=== PATIENT | male | born 1995 | race Caucasian/White ===

== ENCOUNTER 2020-10-11 03:22 | Emergency (ER) | payer OTHER, SELFPAY ==
[2020-10-11 03:28] VITALS: BP 160/98; PULSE 107; RESP 20; TEMP 36.3; O2SAT 95
[2020-10-11 04:03] LABS: Add Urine Microscopic? YES; Appearance Urine Cloudy (Clear); Bacteria Urine Trace /hpf; Bilirubin Urine Negative (Negative); Blood Urine 3+ (Negative); Color Urine Amber (Yellow); Glucose Urine UA Negative (Negative); Ketones Urine Negative (Negative); Leukocyte Esterase Ur Negative LEU/UL (Negative); Mucus Urine Moderate /lpf; Nitrate Urine Negative (Negative); Protein Urine 2+ mg/dL (Negative); RBC Urine >75 /hpf (0-2); Specific Grav Ur 1.025 (1.001-1.035); Squamous Epithelial Cell Urine Occasional /hpf (Few); Urobilinogen Urine Negative mg/dL (<2.0); WBC Urine 0-3 /hpf
--- NOTE | 2020-10-11 04:06 | ED.GENADULT ---
HPI - General Adult General Chief complaint: Urogenital-Male Stated complaint: peeing blood Time Seen by Provider: 10/11/20 03:30 History of Present Illness HPI narrative: Patient a 24-year-old gentleman who presents to emergency department with chief complaint of hematuria. The patient reports that he and his significant other were spending time together this evening and afterwards he went to urinate and noticed that he was urinating blood. Patient reports he has no pain other than now having some slight burning sensation whenever he urinates. Patient does report that he had intercourse earlier this evening denies any trauma denies any pain in his genitalia. Related Data Allergies Allergy/AdvReac Type Severity Reaction Status Date / Time No Known Allergies Allergy Unverified 07/19/17 21:28 Review of Systems Review of Systems: Narrative: A 10 system review of systems was completed on the patient and is negative except for what is stated in the HPI. Nursing and ancillary documentation was reviewed. Course Vital Signs Vital signs: Vital Signs Temperature 36.3 C L 10/11/20 03:28 Pulse Rate 107 H 10/11/20 03:28 Respiratory Rate 20 10/11/20 03:28 Blood Pressure 160/98 H 10/11/20 03:28 Pulse Oximetry 95 10/11/20 03:28 Temperature 36.3 C L 10/11/20 03:28 Pulse Rate 107 H 10/11/20 03:28 Respiratory Rate 20 10/11/20 03:28 Blood Pressure 160/98 H 10/11/20 03:28 Pulse Oximetry 95 10/11/20 03:28 Medical Decision Making Vital Signs Vital Signs: Vital Signs Temperature 36.3 C L 10/11/20 03:28 Pulse Rate 107 H 10/11/20 03:28 Respiratory Rate 20 10/11/20 03:28 Blood Pressure 160/98 H 10/11/20 03:28 Pulse Oximetry 95 10/11/20 03:28 Temperature 36.3 C L 10/11/20 03:28 Pulse Rate 107 H 10/11/20 03:28 Respiratory Rate 20 10/11/20 03:28 Blood Pressure 160/98 H 10/11/20 03:28 Pulse Oximetry 95 10/11/20 03:28 Lab Data Labs: Lab Results 10/11/20 Range/Units 03:40 Urine Color Jaimee (Yellow) Urine Appearance Cloudy H (Clear) Urine pH 5.0 (5.0-9.0) Ur Specific [place] 1.025 (1.001-1.035) Urine Protein 2+ H (Negative) mg/dL Urine Glucose (UA) Negative (Negative) mg/dL Urine Ketones Negative (Negative) mg/dL Ur Blood (Man) 3+ H (Negative) Urine Nitrate Negative (Negative) Urine Bilirubin Negative (Negative) Urine Urobilinogen Negative (<2.0) mg/dL Leukocyte Esterase Rfl Negative (Negative) KATHI/UL Urine RBC >75 H (0-2) /hpf Urine WBC 0-3 /hpf Ur Squamous Epith Cells Occasional (Few) /hpf Urine Bacteria Trace /hpf Urine Mucus Moderate H /lpf Discharge Plan Discharge Clinical Impression: Hematuria Qualifiers: Hematuria type: unspecified type Qualified Code(s): R31.9 - Hematuria, unspecified Patient Disposition: Home, Self-Care Condition: Stable Instructions: Antibiotic Form, Hematuria (ED) Additional Instructions: please follow up with your primary care provider you will need to have your urine tested for make sure the blood is resolving Follow-up/Referrals: VANESSA,ELOINA MADSEN [Primary Care Provider] - 1 Week Time of Disposition: 04:21
[2020-10-11 04:30] VITALS: BP 143/68; PULSE 94; RESP 16; O2SAT 97
== END 2020-10-11 04:32 | disposition home or self-care (01) ==
PROVIDERS: Emergency Provider Emergency Medicine; PCP Nurse Practitioner Family
DX: R31.9 Hematuria, unspecified (principal)
CPT/HCPCS: 73140; 81001; 99283

== ENCOUNTER 2022-06-01 16:10 | Inpatient (IN) | payer OTHER, SELFPAY ==
[2022-06-01] VITALS (18 sets, daily range): BP systolic 116–170; BP diastolic 79–103; PULSE 79–117; RESP 18–41; TEMP 36.6–36.8; O2SAT 96–99
--- NOTE | ~2022-06-01 | CT_ITS ---
EXAMINATION: CT abdomen w con DATE: 06/09/2022 18:54 INDICATION: severe pancreatitis TECHNIQUE: Computed tomography (CT) of the abdomen was performed with 100 mL Omnipaque 350 intravenou s contrast. Automated exposure control and iterative reconstruction technique were employed. The dose -length product was 666.92 mGy-cm. COMPARISON: 06/03/2022. FINDINGS: Bibasilar atelectasis. Small bilateral effusions, slightly increased since the prior study. Similar d egree of heterogeneity of enhancement in the pancreatic head. New focal linear hypoenhancement in the pancreatic tail. Increased peripancreatic fluid. The dominant peripancreatic collection is anterior to the pancreatic head, measures 7.3 cm and show signs of early organization. This collection narrows the traversing superior mesenteric vein which remains patent. Increased organization of multiple upp er abdominal fluid collections adjacent to the pancreatic tail/stomach, the posterior gastric fundus, the posterior medial gastric fundus extending to the anterior leaflet of the left lateral conal fasc ia, the uncinate process, and the pancreatic body/devaughn hepatis. No portal venous or splenic vein thr ombosis. IMPRESSION: Persistent heterogeneous enhancement in the pancreatic head and new linear hypoenhancement in the marx creatic tail, both concerning for necrotizing pancreatitis. Increasing size and organization of multi ple peripancreatic fluid collections, most consistent with acute necrotic collections. Reviewed, dictated and finalized at location K. UCTION LEAD IMPRESSION: Persistent heterogeneous enhancement in the pancreatic head and new linear hypo enhancement in the pancreatic tail, both concerning for necrotizing pancreatiti s. Increasing size and organization of multiple peripancreatic fluid collection s, most consistent with acute necrotic collections.
--- NOTE | ~2022-06-01 | CT_ITS ---
EXAMINATION: CT abdomen pelvis w con DATE: 06/01/2022 20:32 INDICATION: epigastric pain, N/V x2 days, dizziness, dx W/ pancreatitis TECHNIQUE: Computed tomography (CT) of the abdomen and pelvis was performed with 100 mL Omnipaque-350 intravenous contrast. Automated exposure control and iterative reconstruction technique were employe d. The dose-length product was 1377.41 mGy-cm. COMPARISON: None. FINDINGS: Lower thorax: Bibasilar dependent atelectasis. Small left and trace right pleural effusions. Left hil ar node calcifications. Left lower lobe granuloma. Liver: Enlarged diffusely fatty infiltrated liver. Biliary/Gallbladder: Gallbladder is normal. No bile duct dilation. Pancreas: Moderate peripancreatic fluid and edema. No organized peripancreatic collection. Patchy are as of hypoenhancement in the pancreatic head and uncinate process. Spleen: Normal. Adrenals:No mass. Kidneys: No mass, stone, or hydronephrosis. GI tract: Duodenal wall edema and mucosal hyperemia, likely reactive to the pancreatic process No sma ll or large bowel dilation. Normal appendix. Mesentery/Peritoneum: No mass or free air free air. Retroperitoneum: No mass. Pelvis: Pelvic organs are within normal limits. Soft Tissues: Mild body wall edema. Bones: No acute osseous finding. Partially visualized left femoral intramedullary hermann. IMPRESSION: Small left and trace right pleural effusions. Acute interstitial pancreatitis, with heterogeneous enh ancement in the pancreatic head and uncinate process, which may represent pancreatic edema or early n ecrosis. Reactive duodenitis. Hepatomegaly with steatosis. Reviewed, dictated and finalized at location K. DINING ROOM ATTENDANT IMPRESSION: Small left and trace right pleural effusions. Acute interstitial pancreatitis, with heterogeneous enhancement in the pancreatic head and uncinate process, whi ch may represent pancreatic edema or early necrosis. Reactive duodenitis. Hepat omegaly with steatosis.
--- NOTE | ~2022-06-01 | CT_ITS ---
CT Abdomen and Pelvis with contrast. History: Abdominal pain. Spiral CT of the abdomen and pelvis was performed after the administration of intravenous contrast. 1 00 cc of Omnipaque 350 was administered intravenously without complication. Dose reduction technique was used on this scan by utilizing automated exposure control and iterative reconstruction technique. The dose-length product (DLP) was 976.93 mGy-cm. COMPARISON: 06/01/2022 Findings: Scans through the lung bases demonstrate small left pleural effusion with mild atelectatic change. Diffuse fatty infiltration of the liver present. The spleen, gallbladder, adrenals and kidneys are wi thin normal limits. Extensive peripancreatic fluid and inflammatory changes similar to prior exam, co nsistent with acute pancreatitis. No pseudocyst evident. No gross pancreatic necrosis clearly identif ied. No evidence of aortic aneurysm. No lymphadenopathy is seen. There is no evidence of bowel obstruction. There is no evidence to suggest acute appendicitis or dive rticulitis. Images through the pelvis were performed. Urinary bladder unremarkable. Trace pelvic ascites is seen. Impression: Acute pancreatitis, essentially unchanged from prior exam. Diffuse fatty infiltration of the liver. Small left pleural effusion. Reviewed, dictated and finalized at location . TING DEPARTMENT SUPERVISOR Impression: Acute pancreatitis, essentially unchanged from prior exam. Diffuse fatty infiltration of the liver. Small left pleural effusion.
--- NOTE | ~2022-06-01 | XR_ITS ---
EXAMINATION: XR chest PICC line DATE: 06/06/2022 14:45 INDICATION: Central line placement. TECHNIQUE: A single frontal view of the chest was obtained. COMPARISON: Chest single view 12/03/2015, CT abdomen and pelvis 06/03/2022 FINDINGS: There is mild atelectasis at left lung base. No pleural effusion or pneumothorax without si ze is normal. A left upper extremity peripherally inserted central venous catheter (PICC) is seen wit h tip at the superior cavoatrial junction. Calcified left hilar lymph nodes are consistent with old g ranulomatous disease. IMPRESSION: 1. PICC tip at the superior cavoatrial junction. Reviewed, dictated and finalized at location A. RUCTIONAL COACH
[2022-06-01 19:31] LABS: Hematocrit 34.7 % (42.0-52.0); Hemoglobin 12.3 g/dL (14.0-18.0); Mean Corpuscular HGB Conc 35.4 g/dl (32-36); Mean Corpuscular Volume 95.9 fl (80-100); Mean Platelet Volume 11.4 fl (7.4-10.4); Platelet Count Result 187 k/mm3 (150-375); Red Blood Count 3.62 M/mm3 (4.6-6.20); Red Cell Distribution Width 15.1 % (11.5-14.5); White Blood Count 20.9 K/mm3 (4.5-10.0)
[2022-06-01 19:45] LABS: Add Urine Microscopic? YES; Appearance Urine Clear (Clear); Bilirubin Urine 2+ (Negative); Blood Urine Negative (Negative); Color Urine Yellow (Yellow); Glucose Urine UA Negative (Negative); Ketones Urine Negative (Negative); Leukocyte Esterase Ur Negative LEU/UL (Negative); Nitrate Urine Negative (Negative); Protein Urine Negative (Negative); Urobilinogen Urine 0.2 mg/dL (<2.0); pH Urine 7.5 (5.0-9.0)
[2022-06-01 19:49] LABS: Mucus Urine Rare /lpf; WBC Urine 0-3 /hpf
[2022-06-01 19:50] LABS: Alanine Aminotransferase 121 U/L (6-50); Albumin Level 3.5 g/dL (3.5-5.1); Alkaline Phosphatase 102 U/L (38-126); Anion Gap 6 mmol/L (8-16); Aspartate Amino Transferase 148 U/L (17-59); Bilirubin,Total 4.6 mg/dL (0.2-1.3); Calcium 8.1 mg/dL (8.4-10.2); Carbon Dioxide 30 mmol/L (22-30); Chloride 101 mmol/L (98-107); Estimated CRCL calculation 168 ml/min; Estimated Glomerular Filt Rate > 60; Glucose 112 mg/dL (65-110); Lipase 457 U/L (23-300); Potassium 2.3 mmol/L (3.4-5.0); Sodium 137 mmol/L (137-145)
[2022-06-01 19:51] LABS: Blood Urea Nitrogen < 2 mg/dL (9-20)
[2022-06-01 20:00] LABS: Band Neutrophils Percent 5 % (0-6); Lymphocytes Absolute Manual 2.09 K/mm3 (1.1-4.5); Lymphocytes Percent Manual 10 % (18-44); Metamyelocytes Percent 3 %; Monocytes Absolute Manual 2.09 K/mm3 (0.1-0.90); Monocytes Percent Manual 10 % (3-9); Neutrophils Absolute Manual 16.09 K/mm3 (1.3-6.7); Neutrophils Percent Manual 72 % (46-73); Smudge Cells FEW; Total Cells Counted 100
[2022-06-01 20:01] LABS: Nucleated Red Blood Cells 3 %; Platelet Estimate Adequate (Adequate)
[2022-06-01 20:02] LABS: Atypical Lymphocytes Present; Schistocytes None Seen (NORMAL)
--- NOTE | 2022-06-01 20:07 | ED.ABDPAIN ---
HPI - Abdominal Pain General Chief Complaint: Abdominal Pain Stated Complaint: acute pancreatitis, [facility] admission Time Seen by Provider: 06/01/22 18:58 History of Present Illness HPI narrative: Patient is a 26-year-old male who presents to the ER for evaluation in regards to pancreatitis. Used admitted to [facility] 2 days ago for acute pancreatitis. He is unsure any testing or lab work or treatment plan that was occurring. Reports that his pain is not being controlled and they would not bring him a glass water so he ended up leaving. Reports symptoms were preceded by heavy drinking. He has not had pancreatitis previously. Denies fevers chills or sweats. He has some nausea but no active vomiting. Related Data Allergies Allergy/AdvReac Type Severity Reaction Status Date / Time No Known Allergies Allergy Unverified 07/19/17 21:28 Review of Systems Constitutional: Constitutional: Reports no additional constitutional complaints Cardiovascular: Cardiovascular: Reports no additional cardiovascular complaints Respiratory: Respiratory: Reports no additional respiratory complaints Gastrointestinal: Gastrointestinal: Reports no additional gastrointestinal complaints Genitourinary: Genitourinary: Reports no additional male genitourinary complaints Integumentary/Breasts: Skin/Breast: Reports system reviewed and no additional complaints, except as docu [facility] Past Medical History Medical History (Updated 06/01/22 @ 21:36 by Napoleon Naranjo MD) Pancreatitis Surgical History Surgical History (Updated 06/01/22 @ 21:34 by Napoleon Naranjo MD) No pertinent past surgical history Social History Social History (Updated 06/01/22 @ 21:34 by Napoleon Naranjo MD) Social History: Drinks at least 12 shots of 100 proof alcohol per day. Exam Narrative: GENERAL: Well-appearing, obese, and in no acute distress. HEAD: Normocephalic, atraumatic. EYES: PERRL and EOMI. scleral icterus noted. ENT: Mucous membranes moist. CHEST: Clear to auscultation. No respiratory distress. HEART: Tachycardic regular. Normal peripheral pulses. ABDOMEN: Soft, present in the bilateral upper quadrants of the abdomen and slightly distended, normal active bowel sounds. EXTREMITIES: Normal range of motion. No edema. SKIN: Warm, dry, no rash. NEURO: Alert and oriented x3. PSYCH: Normal mood and affect. Course Course Emergency Course: Patient still uncomfortable and will get some Dilaudid. Patient informed of lab results and no abnormalities. He has been started on potassium chloride for his hypokalemia. He has been instructed to remain NPO. Will be admitted to the hospitalist service and I have discussed the case with Dr. Warren. Vital Signs Vital signs: Vital Signs Temperature 97.9 F 06/01/22 16:44 Pulse Rate 112 H 06/01/22 16:44 Respiratory Rate 20 06/01/22 16:44 Blood Pressure 160/100 H 06/01/22 16:44 Pulse Oximetry 99 06/01/22 16:44 Oxygen Delivery Room Air 06/01/22 16:44 Temperature 97.9 F 06/01/22 16:44 Pulse Rate 109 H 06/01/22 20:47 Respiratory Rate 32 H 06/01/22 20:47 Blood Pressure 144/95 H 06/01/22 19:35 Pulse Oximetry 97 06/01/22 20:47 Oxygen Delivery Room Air 06/01/22 16:44 MDM - Abdominal Pain MDM Narrative Medical decision making narrative: BISAP Score for Pancreatitis Mortality from [employer] ([employer]) on 06/01/2022 All calculations should be rechecked by clinician prior to use RESULT SUMMARY: 2 points Patients with a BISAP Score >0 had an increasing risk of mortality, with mortality increasing significantly with a score of 3 or greater. A score of 5 had a mortality rate of 22%. INPUTS: BUN >25 mg/dL (8.92 mmol/L) ?> 0 = No Impaired mental status ?> 0 = No >= SIRS Criteria ?> 1 = Yes Age >60 years ?> 0 = No Pleural effusion present ?> 1 = Yes Lab Data 06/01/22 19:22 06/01/22 19:22 Labs: Lab Results
[2022-06-01 20:24] LABS: Ethanol < 10 mg/dL (<10)
[2022-06-01] MEDS: POTASSIUM CHLORIDE INJ 40 MEQ in SODIUM CHLORIDE 0.9% IV 500 ML 130 MEQ IVPB (20:51)
--- NOTE | 2022-06-01 20:51 | PC.NURSE ---
Medical records request sent to [facility]
[2022-06-01 21:16] LABS: Amphetamine Screen Urine Negative (Negative); Barbiturate Screen Urine Negative (Negative); Benzodiazepines Screen Urine Negative (Negative); Cannabinoid Screen Urine Negative (Negative); Cocaine Screen Urine Negative (Negative); Methadone Screen Urine Negative (Negative); Opiate Screen Urine Negative (Negative); Phencyclidine Screen Urine Negative (Negative)
[2022-06-01 21:17] LABS: Lactate Dehydrogenase 517 U/L (120-246)
[2022-06-01] MEDS: ONDANSETRON INJ 4 MG/2 ML VIAL IV PUSH (21:33)
[2022-06-01] MEDS: HYDROmorphone HCL INJ (*CRX) 1 MG/ML SYR IV PUSH (21:34)
[2022-06-01 22:09] LABS: Influenza A QL RT-PCR Negative (Negative); Influenza B QL RT-PCR Negative (Negative); RSV RNA, RT-PCR Negative (Negative); SARS-CoV-2 RNA PCR Negative
--- NOTE | 2022-06-01 22:33 | ADMGEN ---
This patient, Alonso Bender, was admitted to Medical Room 252-01. Patient/family oriented to hospital policies and general routines including ID bracelet, bed and alarms, visiting hours, pain management, procedures, bathroom and other care routines, personal items, smoking policy, room service/diet, and visiting hours. Information on how to activate the Rapid Response Team has been discussed. Patient/Family are encouraged to report perceived risks to care and to ask questions if they do not understand what they are told or what they should do.
[2022-06-01] MEDS: SODIUM CHLORIDE 0.9% IV 1,000 ML 200 ML IV CONT (22:45)
--- NOTE | 2022-06-01 23:52 | PM.IMHP ---
H&P: HPI History of Present Illness Date/Time: 06/01/22 23:52: date of service 06/01/2021 Chief Complaint: Abdominal pain Narrative: Patient is a 26-year-old male past medical history of alcohol abuse presents to the ED with complaints of epigastric pain. Patient was recently seen at [facility] for acute alcoholic pancreatitis and he had left AMA due to being NPO. He has no active home meds and he states he has never had any issues in the past. He states he has never had pancreatitis before. No history of withdrawals from alcohol abuse. He does vape daily. In the ED: Patient is found have leukocytosis WBC 20.9, potassium 2.3, elevated ALT and AST, lipase 457. CT abdomen pelvis shows acute interstitial pancreatitis with possible early necrosis or pancreatic edema. Minford's criteria 2 points. Patient to be admitted for alcohol pancreatitis. Review of Systems Review of Systems: Constitutional: No Fever, No Chills, No Night Sweats, No Fatigue, No Malaise ENT/Mouth: No Hearing Changes, No Ear Pain, No Nasal Congestion, No Sinus Pain, No Hoarseness, No sore throat, No Rhinorrhea, No Swallowing Difficulty Eyes: No Eye Pain, No Redness, No Vision Changes Cardiovascular: No Chest Pain, No Palpitations, No Dyspnea on Exertion, No Orthopnea, No Claudication, No Edema Respiratory: No Cough, No Sputum, No Wheezing, No Shortness of Breath Gastrointestinal: Nausea, epigastric pain, distended abdomen Genitourinary: No Dysuria, No Urinary Frequency, No Hematuria, No Urinary Incontinence, No Urgency Musculoskeletal: No Arthralgias, No Myalgias, No Joint Swelling, No Joint Stiffness, No Back Pain Skin: No Skin Lesions, No Pruritis, No Hair Changes Neuro: No Weakness, No Numbness, No Paresthesias, No Loss of Consciousness, No Syncope, No Dizziness, No Headache Psych: No Anxiety/Panic, No Depression, No Insomnia Heme: No Bruising, No Bleeding Lymph: No Adenopathy Endocrine: No Polyuria, No Polydipsia, No Temperature Intolerance PMF Past Medical History Medical History Alcohol abuse Pancreatitis Surgical History Surgical History No pertinent past surgical history Family History Family History Mother Cerebrovascular accident Hypertension Social History Social History Social History: Drinks at least 12 shots of 100 proof alcohol per day. Smoking status: Current every day smoker Tobacco type: e-cigarettes/vaping Alcohol intake: current Drinks per week: 84 Substance use: former Substance use type: methamphetamine Lack of Transportation: No Lack of Food: Never True Current Housing: I Have Housing Concerned About Future Housing: No Difficulty Paying Gas/Electric Bills: No Difficulty Paying for Meds: No Currently Unemployed: No Education: Grade School Difficulty w/ Childcare or Family Care: No Spiritual care concerns: No Meds Home Medications and Allergies Home Medications Medication Instructions Recorded Confirmed Type No Home Medications 06/01/22 06/01/22 History Allergies Allergy/AdvReac Type Severity Reaction Status Date / Time No Known Allergies Allergy Unverified 07/19/17 21:28 Vital Signs Vital Signs - 24 hr 06/01/22 16:44 06/01/22 18:57 06/01/22 18:58 Temperature 36.6 C Pulse Rate 112 H 108 H 105 H Respiratory Rate 20 30 H 34 H Blood Pressure 160/100 H 170/103 H Pulse Oximetry 99 99 99 Oxygen Delivery Room Air 06/01/22 19:00 06/01/22 19:02 06/01/22 19:15 Temperature Pulse Rate 102 H 104 H 102 H Respiratory Rate 35 H 41 H 27 H Blood Pressure 131/87 Pulse Oximetry 99 98 99 Oxygen Delivery 06/01/22 19:26 06/01/22 19:33 06/01/22 19:35 Temperature Pulse Rate 117 H 109 H 109 H Respirat
[2022-06-02] VITALS (10 sets, daily range): BP systolic 142–153; BP diastolic 87–93; PULSE 94–105; RESP 18; TEMP 36.1–37.1; O2SAT 96–97
[2022-06-02] MEDS: POTASSIUM CHLORIDE INJ 40 MEQ in SODIUM CHLORIDE 0.9% IV 500 ML 130 MEQ IVPB ×3 (01:02→18:54)
[2022-06-02] MEDS: HYDROmorphone HCL INJ (*CRX) 1 MG/ML SYR IV PUSH ×7 (01:03→22:14)
[2022-06-02] MEDS: SODIUM CHLORIDE 0.9% IV 1,000 ML 200 ML IV CONT ×3 (04:02→17:58)
[2022-06-02] MEDS: NICOTINE (*PBKC) 14 MG PATCH 1 PATCH TRANSDERM (08:14)
[2022-06-02] MEDS: ENOXAPARIN 40 MG/0.4 ML SYRINGE SUB-Q (08:14)
--- NOTE | 2022-06-02 08:24 | PM.IMPN ---
Progress Note: A&P Assessment and Plan (1) Acute pancreatitis: Code(s): K85.90 - Acute pancreatitis without necrosis or infection, unspecified Status: Acute (2) Acute hypokalemia: Code(s): E87.6 - Hypokalemia Status: Acute (3) Alcohol abuse: Code(s): F10.10 - Alcohol abuse, uncomplicated Status: Acute (4) Hyperbilirubinemia: Code(s): E80.6 - Other disorders of bilirubin metabolism Status: Acute Plan # acute alcohol pancreatitis # mild transaminitis likely secondary to alcohol abuse -continue supportive care with IV fluids -Hadley criteria on admission 2 points -pain control p.r.n. Dilaudid 1 mg q.4 hours. Will increase dose to every 3 hours -IV fluids aggressive hydration continue normal saline 200 cc/hour -NPO for now for bowel rest. Will do trial of clear liquid -leukocytosis consistent with pancreatitis remains persistent # alcohol abuse -drinks 99% banana, high proof alcohol last 4-5 years -patient states he has no alcohol withdrawal history -will have [facility] protocol to monitor -multivitamin, thiamine, folic acid supplement -multi care technician consult for alcohol rehab services # hypokalemia -secondary to alcohol abuse -potassium 2.3 giving 40 mEq IV potassium chloride x2 Aggressive potassium replacement as ordered # nicotine dependence -patient vapes daily -will give nicotine patch Diet: NPO for bowel rest DVT prophylaxis: Lovenox Code status: Full code Disposition: Likely home in 3-5 days Subjective Date/time seen: 06/02/22 08:24 Interval history: Abdominal pain is better with pain medication but we are sub faster. Some nausea but no vomiting. Pain is and left upper abdomen. No fever chills. No alcohol since past 5 6 days Review of Systems Review of Systems: All systems reviewed & are unremarkable except as noted in HPI and below Exam Narrative: - GENERAL: Pleasant male no acute distress. - EYES: EOMI. Anicteric. - HENT: Moist mucous membranes. - LUNGS: Clear to auscultation bilaterally, no wheezing, rhonchi, or rales. - CARDIOVASCULAR: Regular rate and rhythm. No murmur. - ABDOMEN: Soft, tender epigastrium and left upper quadrant, distended abdomen. - EXTREMITIES: No edema. Peripheral pulses 2+. Non-tender. - NEUROLOGIC: No focal neurological deficits. CN II-XII grossly intact. - PSYCHIATRIC: Awake, Alert and oriented x 3. Appropriate mood and affect. - SKIN: No rashes or lesions. Warm. - LYMPH: No cervical lymphadenopathy. Objective Data Vital Signs Vital Signs: Vital Signs - 24 hr 06/01/22 16:44 06/01/22 18:57 06/01/22 18:58 Temperature 97.9 F Pulse Rate 112 H 108 H 105 H Respiratory Rate 20 30 H 34 H Blood Pressure 160/100 H 170/103 H Pulse Oximetry 99 99 99 Oxygen Delivery Room Air 06/01/22 19:00 06/01/22 19:02 06/01/22 19:15 Temperature Pulse Rate 102 H 104 H 102 H Respiratory Rate 35 H 41 H 27 H Blood Pressure 131/87 Pulse Oximetry 99 98 99 Oxygen Delivery 06/01/22 19:26 06/01/22 19:33 06/01/22 19:35 Temperature Pulse Rate 117 H 109 H 109 H Respiratory Rate 30 H 21 H Blood Pressure 141/92 H 144/95 H Pulse Oximetry 98 Oxygen Delivery 06/01/22 19:45 06/01/22 20:32 06/01/22 20:47 Temperature Pulse Rate 109 H 113 H 109 H Respiratory Rate 33 H 23 H 32 H Blood Pressure Pulse Oximetry 98 98 97 Oxygen Delivery 06/01/22 21:47 06/01/22 21:10 06/01/22 21:12 Temperature 98.2 F Pulse Rate 86 112 H 106 H Respiratory Rate 18 20 29 H Blood Pressure 126/79 150/95 H Pulse Oximetry 99 98 97 Oxygen Delivery 06/01/22 21:15 06/01/22 22:11 06/01/22 22:43 Temperature 98 F Pulse Rate 106 H 79 Respiratory Rate 40 H 18 Blood Pressure 116/79 Pulse Oximetry 96 98 Oxygen Delivery Room Air 06/01/22 23:22 06/02/22 00:00 06/02/22 00:48 Temperature 97.9 F 97 F L Pulse Rate 103 H 102 H 103 H Respiratory Rate 18 18 Blood Pressure 153/87 H 153/87 H Pulse Ox
[2022-06-02 09:08] LABS: Hematocrit 33.6 % (42.0-52.0); Hemoglobin 11.8 g/dL (14.0-18.0); Mean Corpuscular HGB Conc 35.1 g/dl (32-36); Mean Corpuscular Hemoglobin 33.9 pg (26-34); Mean Corpuscular Volume 96.6 fl (80-100); Mean Platelet Volume 11.1 fl (7.4-10.4); Platelet Count Result 207 k/mm3 (150-375); Red Blood Count 3.48 M/mm3 (4.6-6.20); Red Cell Distribution Width 15.9 % (11.5-14.5); White Blood Count 24.3 K/mm3 (4.5-10.0)
[2022-06-02 09:28] LABS: Alanine Aminotransferase 102 U/L (6-50); Albumin Level 3.3 g/dL (3.5-5.1); Alkaline Phosphatase 97 U/L (38-126); Anion Gap 5 mmol/L (8-16); Aspartate Amino Transferase 97 U/L (17-59); Blood Urea Nitrogen 3 mg/dL (9-20); Calcium 7.2 mg/dL (8.4-10.2); Carbon Dioxide 26 mmol/L (22-30); Chloride 104 mmol/L (98-107); Estimated CRCL calculation 194 ml/min; Estimated Glomerular Filt Rate > 60; Glucose 98 mg/dL (65-110); Magnesium 2.1 mg/dL (1.6-2.3); Potassium 2.7 mmol/L (3.4-5.0); Sodium 135 mmol/L (137-145)
[2022-06-02 10:07] LABS: Anisocytosis 1+ (NORMAL); Band Neutrophils Percent 5 % (0-6); Hypochromasia 1+ (NORMAL); Lymphocytes Absolute Manual 1.45 K/mm3 (1.1-4.5); Metamyelocytes Percent 4 %; Monocytes Absolute Manual 0.97 K/mm3 (0.1-0.90); Monocytes Percent Manual 4 % (3-9); Neutrophils Absolute Manual 20.89 K/mm3 (1.3-6.7); Neutrophils Percent Manual 81 % (46-73); Platelet Estimate Adequate (Adequate); Polychromasia 1+ (NORMAL); Schistocytes None Seen (NORMAL); Smudge Cells FEW; Target Cells 1+ (NORMAL); Total Cells Counted 100
[2022-06-02 18:11] LABS: Potassium 2.8 mmol/L (3.4-5.0)
--- NOTE | 2022-06-02 20:50 | PC.NURSE ---
pt educated on pain management and NPO status r/t pancreatitis. Pt is agreeable to maintain strict NPO at this time as clear liquids have been exacerbating pain.
[2022-06-03] VITALS (9 sets, daily range): BP systolic 140–145; BP diastolic 86–88; PULSE 90–115; RESP 18; TEMP 36.5–37.2; O2SAT 95–97
[2022-06-03] MEDS: POTASSIUM CHLORIDE INJ 40 MEQ in SODIUM CHLORIDE 0.9% IV 500 ML 130 MEQ IVPB ×2 (00:36→08:18)
[2022-06-03] MEDS: HYDROmorphone HCL INJ (*CRX) 1 MG/ML SYR IV PUSH ×10 (01:23→23:32)
[2022-06-03 06:01] LABS: Hemoglobin 11.9 g/dL (14.0-18.0); Mean Corpuscular Hemoglobin 34.3 pg (26-34); Mean Platelet Volume 10.8 fl (7.4-10.4); Platelet Count Result 226 k/mm3 (150-375); Red Blood Count 3.47 M/mm3 (4.6-6.20); Red Cell Distribution Width 16.2 % (11.5-14.5)
[2022-06-03 06:17] LABS: Alanine Aminotransferase 75 U/L (6-50); Albumin Level 3.2 g/dL (3.5-5.1); Alkaline Phosphatase 102 U/L (38-126); Anion Gap 7 mmol/L (8-16); Aspartate Amino Transferase 63 U/L (17-59); Blood Urea Nitrogen 5 mg/dL (9-20); Calcium 7.2 mg/dL (8.4-10.2); Carbon Dioxide 23 mmol/L (22-30); Chloride 101 mmol/L (98-107); Estimated CRCL calculation 228 ml/min; Estimated Glomerular Filt Rate > 60; Glucose 94 mg/dL (65-110); Lipase 481 U/L (23-300); Magnesium 2.1 mg/dL (1.6-2.3); Potassium 3.2 mmol/L (3.4-5.0); Sodium 131 mmol/L (137-145)
[2022-06-03] MEDS: SODIUM CHLORIDE 0.9% IV 1,000 ML 200 ML IV CONT ×3 (07:40→21:22)
[2022-06-03] MEDS: NICOTINE (*PBKC) 14 MG PATCH 1 PATCH TRANSDERM (08:03)
[2022-06-03] MEDS: ENOXAPARIN 40 MG/0.4 ML SYRINGE SUB-Q (08:04)
[2022-06-03 08:13] LABS: Band Neutrophils Percent 14 % (0-6); Eosinophils Absolute Manual 0.27 K/mm3 (0.02-0.5); Eosinophils Percent Manual 1 % (0-4); Lymphocytes Absolute Manual 1.35 K/mm3 (1.1-4.5); Metamyelocytes Percent 1 %; Monocytes Absolute Manual 1.35 K/mm3 (0.1-0.90); Monocytes Percent Manual 5 % (3-9); Myelocytes Percent 1 %; Neutrophils Absolute Manual 23.49 K/mm3 (1.3-6.7); Neutrophils Percent Manual 73 % (46-73); Platelet Estimate Adequate (Adequate); Schistocytes None Seen (NORMAL); Stomatocytes 1+ (NORMAL); Total Cells Counted 100
[2022-06-03] MEDS: PANTOPRAZOLE SODIUM IV 40 MG VIAL IV PUSH (09:12)
--- NOTE | 2022-06-03 13:54 | PM.IMPN ---
Progress Note: A&P Assessment and Plan (1) Acute pancreatitis: Code(s): K85.90 - Acute pancreatitis without necrosis or infection, unspecified Status: Acute (2) Acute hypokalemia: Code(s): E87.6 - Hypokalemia Status: Acute (3) Alcohol abuse: Code(s): F10.10 - Alcohol abuse, uncomplicated Status: Acute (4) Hyperbilirubinemia: Code(s): E80.6 - Other disorders of bilirubin metabolism Status: Acute Plan # acute alcohol pancreatitis continue IV resuscitation has ordered. Will continue NPO. Leukocytosis worsened. Will start imipenem cilastatin. Recheck CT abdomen to rule out necrosis. GI consultation. # mild transaminitis likely secondary to alcohol abuse -continue supportive care with IV fluids -Tyler criteria on admission 2 points -pain control p.r.n. Dilaudid 1 mg q 12 hours p.r.n. -IV fluids aggressive hydration continue normal saline 200 cc/hour -NPO for now for bowel rest. Will do trial of clear liquid which did not go well. Continue NPO for now -leukocytosis consistent with pancreatitis remains persistent # alcohol abuse -drinks 99% banana, high proof alcohol last 4-5 years -patient states he has no alcohol withdrawal history -will have [facility] protocol to monitor -multivitamin, thiamine, folic acid supplement -palliative care nurse practitioner consult for alcohol rehab services # hypokalemia -secondary to alcohol abuse -potassium 2.3 giving 40 mEq IV potassium chloride x2 Aggressive potassium replacement as ordered # nicotine dependence -patient vapes daily -will give nicotine patch Diet: NPO for bowel rest DVT prophylaxis: Lovenox Code status: Full code Disposition: Likely home in 3-5 days Subjective Date/time seen: 06/03/22 13:54 Interval history: He tried some popsicles yesterday and had felt worse since then. His feels bloated and hurting more. Nausea present no vomiting. Remains afebrile. Review of Systems Review of Systems: All systems reviewed & are unremarkable except as noted in HPI and below Exam Narrative: - GENERAL: Pleasant male ill looking not in acute distress - EYES: EOMI. Anicteric. - HENT: Moist mucous membranes. - LUNGS: Clear to auscultation bilaterally, no wheezing, rhonchi, or rales. - CARDIOVASCULAR: Regular rate and rhythm. No murmur. - ABDOMEN: Soft, tender epigastrium and left upper quadrant, distended abdomen. - EXTREMITIES: No edema. Peripheral pulses 2+. Non-tender. - NEUROLOGIC: No focal neurological deficits. CN II-XII grossly intact. - PSYCHIATRIC: Awake, Alert and oriented x 3. Appropriate mood and affect. - SKIN: No rashes or lesions. Warm. - LYMPH: No cervical lymphadenopathy. Objective Data Vital Signs Vital Signs: Vital Signs - 24 hr 06/02/22 14:00 06/02/22 16:00 06/02/22 21:23 Temperature 98.3 F 98.7 F Pulse Rate 98 94 102 H Respiratory Rate 18 18 Blood Pressure 151/91 H 144/93 H Pulse Oximetry 96 97 06/02/22 20:00 06/03/22 05:27 06/03/22 00:00 Temperature 99.0 F Pulse Rate 98 96 115 H Respiratory Rate 18 Blood Pressure 143/86 H Pulse Oximetry 96 06/03/22 04:00 Temperature Pulse Rate 94 Respiratory Rate Blood Pressure Pulse Oximetry Intake/Output Intake/Output: Intake & Output 05/31/22 06/01/22 06/02/22 06/03/22 23:59 23:59 23:59 23:59 Intake Total 4900 1520 Output Total 4800 1400 Balance 100 120 Meds/Results Medications: Active Medications Generic Name Dose Route Start Last Admin Trade Name Freq PRN Reason Stop Dose Admin Enoxaparin Sodium 40 mg 06/02/22 09:00 06/03/22 08:04 Enoxaparin 40 Mg/0.4 Ml Syringe SUB-Q 40 mg DAILY [facility] Administration Folic Acid 1 mg 06/04/22 09:00 Folic Acid 1 Mg/0.2 Ml Inj IV PUSH QAM [facility] Hydromorphone HCl 1 mg 06/03/22 10:14 06/03/22 13:24 Hydromorphone Hcl Inj (*Crx) 1 Mg/Ml Syr IV PUSH 1 mg Q2H PRN Administration Pain Rated 7-10 Sodium Chloride 1,000 mls @ 200 mls/hr 06/01
[2022-06-03] MEDS: ONDANSETRON INJ 4 MG/2 ML VIAL IV PUSH ×2 (13:59→21:31)
--- NOTE | 2022-06-03 16:05 | WPDGICN ---
Assessment and Plan Assessment and plan (1) Acute pancreatitis: Code(s): K85.90 - Acute pancreatitis without necrosis or infection, unspecified Status: Acute Assessment and Plan: As noted above, lipase is over 400. CT scan shows: Diffuse fatty infiltration of the liver present. The spleen, gallbladder, adrenals and kidneys are within normal limits. Extensive peripancreatic fluid and inflammatory changes similar to prior exam, consistent with acute pancreatitis. No pseudocyst evident. No gross pancreatic necrosis clearly identified. No evidence of aortic aneurysm.? No lymphadenopathy is seen. (2) Acute hypokalemia: Code(s): E87.6 - Hypokalemia Status: Acute Assessment and Plan: He required several potassium riders. (3) Alcohol abuse: Code(s): F10.10 - Alcohol abuse, uncomplicated Status: Acute Assessment and Plan: He states he drinks at least 10 or 12 shots of 100 proof alcohol every day He insists that he is going to stop drinking completely. I did explain him that once a person has had pancreatitis. It does not take that much alcohol for to come back and that in some individuals each episode is worse any can be fatal. (4) Hyperbilirubinemia: Code(s): E80.6 - Other disorders of bilirubin metabolism Status: Acute Assessment and Plan: Bilirubin was over 4 but now down to 2.0. He denies any prior episodes of jaundice. His hearing, which was very dark to 3 days ago has come back to almost normal color. I observed urine in his urine now and was slightly orangish yellow Plan I explained the patient that getting over pancreatitis requires resting the pancreas, a can to resting a sprained ankle. I told that as his pain diminishes that will be an indication that his pancreas has healed enough that he is able to have that just double food. For now he will need to stay on clear liquids. Explain him that pancreatitis can take days to many weeks to recover from. In some cases hyperalimentation is necessary. I explained that he could get pancreatic necrosis. He is on antibiotics now. The retic Preethi we would not need to start these until 7-10 days at which point the risk of infected necrosis would appear but he is on imipenem which is the appropriate antibiotic. We need to monitor calcium level magnesium, and phosphorus . Rehydration is a central as it 1 can have a great deal of 3rd spacing of fluid of acute pancreatitis. Will watch for signs of hemoconcentration to guide us in that. GI Consult Note Consult date/time: 06/03/22 16:05 HPI: Alonso Bender is a 26 year old male who was admitted through the emergency room 2 days ago with acute abdominal pain due to pancreatitis. He states that his symptoms began on Thursday. He went to the emergency room at [facility] but left the next day because he was waiting up to 6 hours for pain medication and not getting any responses or explanation as to what his treatment program was. He admits he drinks quite a bit of alcohol, but anti shots which are 99 prove. He has never before had hepatitis or yellow jaundice but recalls being told that he had some damage to his liver when he took an overdose of something or other at age 15. He does not have a primary care physician has not had any recent laboratory studies for comparison he states that he try to drink liquids when he was at the other hospital because they were encouraging to do so but it made him more nauseated. He is now tolerating a popsicle. He has had no emesis today. His abdomen was feeling very tense at 1st but is little better now it he also noted his urine was is dark as tea a couple days ago but seems to be clear today. He has had no change in bowel habits. Arrival here he was found have a bilirubin of 4.6. Lipase was in the 400s transaminases are elevated but are improving. White blood count is over 20,000. CT scan is consistent with acute pancreatitis
[2022-06-03 16:15] LABS: Phosphorus 1.8 mg/dL (2.5-4.5)
--- NOTE | 2022-06-03 20:02 | PC.NURSE ---
Pt requesting IV dilaudid roughly every 90min, holding 2nd trial of clear liquids at this time.
--- NOTE | 2022-06-03 20:28 | PC.NURSE ---
Pt care assumed by Peggy Wagner RN.
[2022-06-04] VITALS (9 sets, daily range): BP systolic 138–153; BP diastolic 87–90; PULSE 90–107; RESP 17–18; TEMP 36.6–37.7; O2SAT 95–98
[2022-06-04] MEDS: ONDANSETRON INJ 4 MG/2 ML VIAL IV PUSH ×3 (01:35→21:58)
[2022-06-04] MEDS: HYDROmorphone HCL INJ (*CRX) 1 MG/ML SYR IV PUSH ×8 (01:35→22:00)
[2022-06-04] MEDS: SODIUM CHLORIDE 0.9% IV 1,000 ML 200 ML IV CONT ×4 (02:44→19:06)
[2022-06-04 07:48] LABS: Alanine Aminotransferase 57 U/L (6-50); Albumin Level 3.2 g/dL (3.5-5.1); Alkaline Phosphatase 109 U/L (38-126); Anion Gap 8 mmol/L (8-16); Aspartate Amino Transferase 51 U/L (17-59); Bilirubin,Total 1.7 mg/dL (0.2-1.3); Blood Urea Nitrogen 4 mg/dL (9-20); Calcium 7.5 mg/dL (8.4-10.2); Carbon Dioxide 24 mmol/L (22-30); Chloride 99 mmol/L (98-107); Estimated CRCL calculation 228 ml/min; Estimated Glomerular Filt Rate > 60; Glucose 93 mg/dL (65-110); Potassium 3.2 mmol/L (3.4-5.0); Sodium 131 mmol/L (137-145)
[2022-06-04] MEDS: NICOTINE (*PBKC) 14 MG PATCH 1 PATCH TRANSDERM (08:22)
[2022-06-04] MEDS: THIAMINE HCL 200 MG/2 ML VIAL 100 MG IV PUSH (08:23)
[2022-06-04] MEDS: FOLIC ACID 1 MG/0.2 ML INJ IV PUSH (08:23)
[2022-06-04] MEDS: PANTOPRAZOLE SODIUM IV 40 MG VIAL IV PUSH (08:23)
[2022-06-04] MEDS: ENOXAPARIN 40 MG/0.4 ML SYRINGE SUB-Q (08:23)
[2022-06-04 08:39] LABS: Lipase 630 U/L (23-300)
[2022-06-04 08:42] LABS: Procalcitonin 0.6 ng/mL
[2022-06-04] MEDS: POTASSIUM CHLORIDE 20 MEQ PACKET (FOR LIQUID) 40 MEQ PO (13:53)
--- NOTE | 2022-06-04 14:53 | PM.IMPN ---
Progress Note: A&P Assessment and Plan (1) Acute pancreatitis: Code(s): K85.90 - Acute pancreatitis without necrosis or infection, unspecified Status: Acute (2) Acute hypokalemia: Code(s): E87.6 - Hypokalemia Status: Acute (3) Alcohol abuse: Code(s): F10.10 - Alcohol abuse, uncomplicated Status: Acute (4) Hyperbilirubinemia: Code(s): E80.6 - Other disorders of bilirubin metabolism Status: Acute Plan # acute alcohol pancreatitis continue IV resuscitation has ordered. Will continue NPO. Leukocytosis worsened. Will start imipenem cilastatin. Recheck CT abdomen to rule out necrosis. GI consultation. # mild transaminitis likely secondary to alcohol abuse -continue supportive care with IV fluids -Tyler criteria on admission 2 points -pain control p.r.n. Dilaudid 1 mg q 12 hours p.r.n. -IV fluids aggressive hydration continue normal saline 200 cc/hour -NPO for now for bowel rest. Will do trial of clear liquid which did not go well. Continue NPO for now -leukocytosis consistent with pancreatitis remains persistent # alcohol abuse -drinks 99% banana, high proof alcohol last 4-5 years -patient states he has no alcohol withdrawal history -will have [facility] protocol to monitor -multivitamin, thiamine, folic acid supplement -healthcare administration intern consult for alcohol rehab services # hypokalemia -secondary to alcohol abuse -potassium 2.3 giving 40 mEq IV potassium chloride x2 Aggressive potassium replacement as ordered # nicotine dependence -patient vapes daily -will give nicotine patch Diet: NPO for bowel rest DVT prophylaxis: Lovenox Code status: Full code Disposition: Likely home in 3-5 days 06/04/2022 interval history: patient with history of alcohol abuse presented with pancreatitis patient lipase a is 680 patient continued to complain of abdominal pain patient seen by GI recommended continue clear liquid, hydration and pain management, patient has a risk of DT, will place the patient on CIWA per and Librium as needed will continue to monitor and further recommendation to follow Subjective Date/time seen: 06/04/22 14:53 Interval history: He tried some popsicles yesterday and had felt worse since then. His feels bloated and hurting more. Nausea present no vomiting. Remains afebrile. 06/04/2022 interval history: patient with history of alcohol abuse presented with pancreatitis patient lipase a is 680 patient continued to complain of abdominal pain patient seen by GI recommended continue clear liquid, hydration and pain management, patient has a risk of DT, will place the patient on CIWA per and Librium as needed will continue to monitor and further recommendation to follow Review of Systems Review of Systems: All systems reviewed & are unremarkable except as noted in HPI and below Exam Narrative: moderately obese Patient is comfortable, NAD HEENT: eyes are clear and none icteric LUNGS: normal respiratory effort ABD: obese distended Lower extremities: no edema SKIN: nonjaundiced Neuro: grossly intact. Objective Data Vital Signs Vital Signs: Vital Signs - 24 hr 06/03/22 16:00 06/03/22 21:10 06/03/22 20:00 Temperature 97.9 F Pulse Rate 98 102 H 97 Respiratory Rate 18 Blood Pressure 145/88 H Pulse Oximetry 97 Oxygen Delivery 06/04/22 00:00 06/04/22 04:58 06/04/22 04:00 Temperature 97.8 F Pulse Rate 100 97 90 Respiratory Rate 17 Blood Pressure 146/87 H Pulse Oximetry 96 Oxygen Delivery 06/04/22 04:00 06/04/22 08:23 06/04/22 08:00 Temperature Pulse Rate 97 90 Respiratory Rate 18 Blood Pressure 146/87 H Pulse Oximetry 96 Oxygen Delivery Room Air 06/04/22 12:04 Temperature Pulse Rate 107 H Respiratory Rate Blood Pressure Pulse Oximetry Oxygen Delivery Intake/Output Intake/Output: Intake & Output 06/01/22 06/02/22 06/03/22 06/04/22 23:59 23:59 23:59 23:59 Intake Total
--- NOTE | 2022-06-04 16:26 | WPDGIPROGNO ---
Progress Note: A&P Assessment and Plan (1) Acute pancreatitis: Code(s): K85.90 - Acute pancreatitis without necrosis or infection, unspecified Status: Acute Assessment and Plan: As noted above, lipase is over 400. CT scan shows: Diffuse fatty infiltration of the liver present. The spleen, gallbladder, adrenals and kidneys are within normal limits. Extensive peripancreatic fluid and inflammatory changes similar to prior exam, consistent with acute pancreatitis. No pseudocyst evident. No gross pancreatic necrosis clearly identified. No evidence of aortic aneurysm.? No lymphadenopathy is seen. So far no significant improvement. He in fact feels a little more uncomfortable. I told that he may need parental element today herrera if his pancreatitis does not resolve in a few days. It is too soon however at this point to know that that would be necessary. (2) Acute hypokalemia: Code(s): E87.6 - Hypokalemia Status: Acute Assessment and Plan: He required several potassium riders. (3) Alcohol abuse: Code(s): F10.10 - Alcohol abuse, uncomplicated Status: Acute Assessment and Plan: He states he drinks at least 10 or 12 shots of 100 proof alcohol every day He insists that he is going to stop drinking completely. I did explain him that once a person has had pancreatitis. It does not take that much alcohol for to come back and that in some individuals each episode is worse any can be fatal. (4) Hyperbilirubinemia: Code(s): E80.6 - Other disorders of bilirubin metabolism Status: Acute Assessment and Plan: Bilirubin was over 4 but now down to 2.0. He denies any prior episodes of jaundice. His hearing, which was very dark to 3 days ago has come back to almost normal color. I observed urine in his urine now and was slightly orangish yellow 06/04/2022 bilirubin is a little lower, 1.7 Plan I explained the patient that getting over pancreatitis requires resting the pancreas, a can to resting a sprained ankle. I told that as his pain diminishes that will be an indication that his pancreas has healed enough that he is able to have that just double food. For now he will need to stay on clear liquids. Explain him that pancreatitis can take days to many weeks to recover from. In some cases hyperalimentation is necessary. I explained that he could get pancreatic necrosis. He is on antibiotics now. The retic Preethi we would not need to start these until 7-10 days at which point the risk of infected necrosis would appear but he is on imipenem which is the appropriate antibiotic. We need to monitor calcium level magnesium, and phosphorus . Rehydration is essential as it 1 can have a great deal of 3rd spacing of fluid of acute pancreatitis. Will watch for signs of hemoconcentration to guide us in that. I reminded him that bowel rest is the main treatment approach for pancreatitis as there is no medical therapy to accelerate the healing process. He understands that in the fact he stated that he is not even comfortable drinking liquids today Subjective Date/time seen: 06/04/22 16:26 His pain is if anything worse today. He still needs his pain medicine every 2 hours but states that it does not last that long. He has tried some clear liquids but he states that he drinks more than a couple of sips it causes him more pain and he is therefore avoiding anything by mouth. I asked him more about his brief hospitalization at [facility]. He thinks that they told him his lipase was 5500. 06/03/22? HPI: Alonso Bender is a 26 year old male who was admitted through the emergency room 2 days ago with acute abdominal pain due to pancreatitis.? He states that his symptoms began on Thursday.? He went to the emergency room at [facility] but left the next day because he was waiting up to 6 hours for pain medication and not getting any responses or explanation as to what his treatme
[2022-06-04] MEDS: chlordiazePOXIDE (*CRX) 25 MG CAPSULE 50 MG PO (16:37)
[2022-06-04] MEDS: HYDROcodone/acetaminophen (*CRX) 5-325 MG TABLET 1 TAB PO ×2 (16:38→20:39)
[2022-06-05] VITALS (11 sets, daily range): BP systolic 137–150; BP diastolic 75–85; PULSE 89–107; RESP 18; TEMP 36.2–36.7; O2SAT 97–99
[2022-06-05] MEDS: SODIUM CHLORIDE 0.9% IV 1,000 ML 200 ML IV CONT ×6 (00:21→23:06)
[2022-06-05] MEDS: chlordiazePOXIDE (*CRX) 25 MG CAPSULE 50 MG PO ×4 (00:22→17:36)
[2022-06-05] MEDS: HYDROcodone/acetaminophen (*CRX) 5-325 MG TABLET 1 TAB PO ×5 (02:50→21:04)
[2022-06-05 05:28] LABS: Hematocrit 34.3 % (42.0-52.0); Mean Corpuscular Volume 97.2 fl (80-100); Mean Platelet Volume 10.4 fl (7.4-10.4); Platelet Count Result 329 k/mm3 (150-375); Red Blood Count 3.53 M/mm3 (4.6-6.20); Red Cell Distribution Width 16.1 % (11.5-14.5); White Blood Count 25.1 K/mm3 (4.5-10.0)
[2022-06-05 05:42] LABS: Alanine Aminotransferase 53 U/L (6-50); Alkaline Phosphatase 106 U/L (38-126); Anion Gap 7 mmol/L (8-16); Aspartate Amino Transferase 57 U/L (17-59); Bilirubin,Total 1.4 mg/dL (0.2-1.3); Blood Urea Nitrogen 3 mg/dL (9-20); Calcium 7.7 mg/dL (8.4-10.2); Carbon Dioxide 26 mmol/L (22-30); Chloride 103 mmol/L (98-107); Estimated CRCL calculation 228 ml/min; Estimated Glomerular Filt Rate > 60; Glucose 98 mg/dL (65-110); Magnesium 2.2 mg/dL (1.6-2.3); Potassium 3.4 mmol/L (3.4-5.0); Sodium 136 mmol/L (137-145)
[2022-06-05] MEDS: HYDROmorphone HCL INJ (*CRX) 1 MG/ML SYR IV PUSH ×3 (06:31→22:14)
[2022-06-05] MEDS: ENOXAPARIN 40 MG/0.4 ML SYRINGE SUB-Q (08:08)
[2022-06-05] MEDS: NICOTINE (*PBKC) 14 MG PATCH 1 PATCH TRANSDERM (08:09)
[2022-06-05] MEDS: PANTOPRAZOLE SODIUM IV 40 MG VIAL IV PUSH (08:09)
[2022-06-05] MEDS: THIAMINE HCL 200 MG/2 ML VIAL 100 MG IV PUSH (08:09)
[2022-06-05] MEDS: FOLIC ACID 1 MG/0.2 ML INJ IV PUSH (08:12)
[2022-06-05] MEDS: POTASSIUM CHLORIDE 20 MEQ TABLET 40 MEQ PO (12:03)
--- NOTE | 2022-06-05 13:18 | PM.IMPN ---
Progress Note: A&P Assessment and Plan (1) Acute pancreatitis: Code(s): K85.90 - Acute pancreatitis without necrosis or infection, unspecified Status: Acute (2) Acute hypokalemia: Code(s): E87.6 - Hypokalemia Status: Acute (3) Alcohol abuse: Code(s): F10.10 - Alcohol abuse, uncomplicated Status: Acute (4) Hyperbilirubinemia: Code(s): E80.6 - Other disorders of bilirubin metabolism Status: Acute Plan # acute alcohol pancreatitis continue IV resuscitation has ordered. Will continue NPO. Leukocytosis worsened. Will start imipenem cilastatin. Recheck CT abdomen to rule out necrosis. GI consultation. # mild transaminitis likely secondary to alcohol abuse -continue supportive care with IV fluids -Tyler criteria on admission 2 points -pain control p.r.n. Dilaudid 1 mg q 12 hours p.r.n. -IV fluids aggressive hydration continue normal saline 200 cc/hour -NPO for now for bowel rest. Will do trial of clear liquid which did not go well. Continue NPO for now -leukocytosis consistent with pancreatitis remains persistent # alcohol abuse -drinks 99% banana, high proof alcohol last 4-5 years -patient states he has no alcohol withdrawal history -will have [facility] protocol to monitor -multivitamin, thiamine, folic acid supplement -rn care transition consult for alcohol rehab services # hypokalemia -secondary to alcohol abuse -potassium 2.3 giving 40 mEq IV potassium chloride x2 Aggressive potassium replacement as ordered # nicotine dependence -patient vapes daily -will give nicotine patch Diet: NPO for bowel rest DVT prophylaxis: Lovenox Code status: Full code Disposition: Likely home in 3-5 days 06/05/2022 interval history: patient with history of alcohol abuse presented with pancreatitis, patient lipase was 680 on 06/04, patient continued to complain of abdominal pain patient seen by GI recommended continue clear liquid, hydration and pain management, patient has a risk of DT, placed the patient on CIWA protocol and Librium as needed, today again patient continue to c/o abdomen pain, will not advance his diet, patient will be seen GI and further recommendation to follow, will continue to monitor and further recommendation to follow Subjective Date/time seen: 06/05/22 13:18 Interval history: He tried some popsicles yesterday and had felt worse since then. His feels bloated and hurting more. Nausea present no vomiting. Remains afebrile. 06/05/2022 interval history: patient with history of alcohol abuse presented with pancreatitis, patient lipase was 680 on 06/04, patient continued to complain of abdominal pain patient seen by GI recommended continue clear liquid, hydration and pain management, patient has a risk of DT, placed the patient on CIWA protocol and Librium as needed, today again patient continue to c/o abdomen pain, will not advance his diet, patient will be seen GI and further recommendation to follow, will continue to monitor and further recommendation to follow Review of Systems Review of Systems: All systems reviewed & are unremarkable except as noted in HPI and below Exam Narrative: moderately obese Patient is comfortable, NAD HEENT: eyes are clear and none icteric LUNGS: normal respiratory effort ABD: obese distended Lower extremities: no edema SKIN: nonjaundiced Neuro: grossly intact. Objective Data Vital Signs Vital Signs: Vital Signs - 24 hr 06/04/22 14:00 06/04/22 16:01 06/04/22 22:00 Temperature 98.1 F 99.8 F H Pulse Rate 93 105 H 103 H Respiratory Rate 18 18 Blood Pressure 138/90 153/89 H Pulse Oximetry 95 98 Oxygen Delivery 06/05/22 00:00 06/05/22 04:00 06/05/22 05:45 Temperature 98.0 F Pulse Rate 97 98 94 Respiratory Rate 18 Blood Pressure 150/85 H Pulse Oximetry 99 Oxygen Delivery 06/05/22 08:14 06/05/22 08:00 06/05/22 12:04 Temperature Pulse Rate 89 99 Respiratory Rate 18
[2022-06-05] MEDS: ONDANSETRON INJ 4 MG/2 ML VIAL IV PUSH ×2 (14:08→22:16)
[2022-06-06] VITALS (10 sets, daily range): BP systolic 127–149; BP diastolic 62–86; PULSE 86–111; RESP 18–20; TEMP 35.6–36.7; O2SAT 94–97; BMI 33.0
[2022-06-06] MEDS: chlordiazePOXIDE (*CRX) 25 MG CAPSULE 50 MG PO ×2 (00:54→06:56)
[2022-06-06] MEDS: HYDROcodone/acetaminophen (*CRX) 5-325 MG TABLET 1 TAB PO ×3 (01:05→10:36)
[2022-06-06] MEDS: SODIUM CHLORIDE 0.9% IV 1,000 ML 200 ML IV CONT ×2 (05:07→10:55)
[2022-06-06 05:50] LABS: Hematocrit 35.4 % (42.0-52.0); Hemoglobin 12.1 g/dL (14.0-18.0); Mean Corpuscular HGB Conc 34.2 g/dl (32-36); Mean Corpuscular Hemoglobin 33.3 pg (26-34); Mean Corpuscular Volume 97.5 fl (80-100); Mean Platelet Volume 10.3 fl (7.4-10.4); Platelet Count Result 433 k/mm3 (150-375); Red Blood Count 3.63 M/mm3 (4.6-6.20); Red Cell Distribution Width 15.9 % (11.5-14.5); White Blood Count 22.1 K/mm3 (4.5-10.0)
[2022-06-06] MEDS: HYDROmorphone HCL INJ (*CRX) 1 MG/ML SYR IV PUSH ×5 (06:02→21:47)
[2022-06-06] MEDS: ONDANSETRON INJ 4 MG/2 ML VIAL IV PUSH ×3 (06:03→20:51)
[2022-06-06 06:16] LABS: Alanine Aminotransferase 61 U/L (6-50); Albumin Level 2.9 g/dL (3.5-5.1); Alkaline Phosphatase 119 U/L (38-126); Anion Gap 5 mmol/L (8-16); Aspartate Amino Transferase 77 U/L (17-59); Bilirubin,Total 1.2 mg/dL (0.2-1.3); Calcium 7.7 mg/dL (8.4-10.2); Carbon Dioxide 28 mmol/L (22-30); Chloride 104 mmol/L (98-107); Estimated CRCL calculation 228 ml/min; Estimated Glomerular Filt Rate > 60; Glucose 99 mg/dL (65-110); Lipase 1173 U/L (23-300); Potassium 3.2 mmol/L (3.4-5.0); Sodium 137 mmol/L (137-145)
[2022-06-06 06:37] LABS: Blood Urea Nitrogen < 2 mg/dL (9-20)
--- NOTE | 2022-06-06 07:02 | WPDGIPROGNO ---
Progress Note: A&P Assessment and Plan (1) Acute pancreatitis: Code(s): K85.90 - Acute pancreatitis without necrosis or infection, unspecified Status: Acute Assessment and Plan: As noted above, lipase is over 400. CT scan shows: Diffuse fatty infiltration of the liver present. The spleen, gallbladder, adrenals and kidneys are within normal limits. Extensive peripancreatic fluid and inflammatory changes similar to prior exam, consistent with acute pancreatitis. No pseudocyst evident. No gross pancreatic necrosis clearly identified. No evidence of aortic aneurysm.? No lymphadenopathy is seen. So far no significant improvement. He in fact feels a little more uncomfortable. I told that he may need parental element today herrera if his pancreatitis does not resolve in a few days. It is too soon however at this point to know that that would be necessary. 06/06/2022 lipase has increased. He obviously has a quite severe case of pancreatitis. He will need to be started on hyperalimentation. (2) Acute hypokalemia: Code(s): E87.6 - Hypokalemia Status: Acute Assessment and Plan: He required several potassium riders. (3) Alcohol abuse: Code(s): F10.10 - Alcohol abuse, uncomplicated Status: Acute Assessment and Plan: He states he drinks at least 10 or 12 shots of 100 proof alcohol every day He insists that he is going to stop drinking completely. I did explain him that once a person has had pancreatitis. It does not take that much alcohol for to come back and that in some individuals each episode is worse any can be fatal. (4) Hyperbilirubinemia: Code(s): E80.6 - Other disorders of bilirubin metabolism Status: Acute Assessment and Plan: Bilirubin was over 4 but now down to 2.0. He denies any prior episodes of jaundice. His hearing, which was very dark to 3 days ago has come back to almost normal color. I observed urine in his urine now and was slightly orangish yellow 06/04/2022 bilirubin is a little lower, 1.7 Plan I explained the patient that getting over pancreatitis requires resting the pancreas, a can to resting a sprained ankle. I told that as his pain diminishes that will be an indication that his pancreas has healed enough that he is able to have that just double food. For now he will need to stay on clear liquids. Explain him that pancreatitis can take days to many weeks to recover from. In some cases hyperalimentation is necessary. I explained that he could get pancreatic necrosis. He is on antibiotics now. The bakari [place] we would not need to start these until 7-10 days at which point the risk of infected necrosis would appear but he is on imipenem which is the appropriate antibiotic. We need to monitor calcium level magnesium, and phosphorus . Rehydration is essential as it 1 can have a great deal of 3rd spacing of fluid of acute pancreatitis. Will watch for signs of hemoconcentration to guide us in that. I reminded him that bowel rest is the main treatment approach for pancreatitis as there is no medical therapy to accelerate the healing process. He understands that in the fact he stated that he is not even comfortable drinking liquids today Subjective Date/time seen: 06/06/22 07:02 He is getting some sleep after pain medication but still has generalized discomfort though primarily left upper quadrant I expressed to him my concern about his persistent lipase elevation, the severity of his pancreatitis and the fact that he is not getting nutrition. I told that we will need to start him on TPN. He is agreeable to anything that will help. Exam Const: General: alert and overweight Nutritional Appearance: overweight Orientation/consciousness: patient oriented x3 Resp: Auscultation: clear to auscultation bilaterally Cardio: Rhythm: regular rhythm GI: GI Palp: Yes abdominal tenderness ( Mostly left upper quadrant. Not so bad now but he had pain medicat
[2022-06-06] MEDS: ENOXAPARIN 40 MG/0.4 ML SYRINGE SUB-Q (10:34)
[2022-06-06] MEDS: NICOTINE (*PBKC) 14 MG PATCH 1 PATCH TRANSDERM (10:35)
[2022-06-06] MEDS: POTASSIUM CHLORIDE 20 MEQ TABLET 40 MEQ PO (10:36)
[2022-06-06] MEDS: THIAMINE HCL 200 MG/2 ML VIAL 100 MG IV PUSH (10:38)
[2022-06-06] MEDS: PANTOPRAZOLE SODIUM IV 40 MG VIAL IV PUSH (10:40)
[2022-06-06] MEDS: FOLIC ACID 1 MG/0.2 ML INJ IV PUSH (10:40)
[2022-06-06] MEDS: LIDOCAINE HCL 1% PF INJ 5 ML VIAL INFILTRATE (14:15)
[2022-06-06] MEDS: AMINO ACIDS 4.25%/D5W/LYTES/CA 2,000 ML 80 ML IV CONT (16:28)
--- NOTE | 2022-06-06 16:40 | PM.IMPN ---
Progress Note: A&P Assessment and Plan (1) Acute pancreatitis: Code(s): K85.90 - Acute pancreatitis without necrosis or infection, unspecified Status: Acute (2) Acute hypokalemia: Code(s): E87.6 - Hypokalemia Status: Acute (3) Alcohol abuse: Code(s): F10.10 - Alcohol abuse, uncomplicated Status: Acute (4) Hyperbilirubinemia: Code(s): E80.6 - Other disorders of bilirubin metabolism Status: Acute Plan # acute alcohol pancreatitis continue IV resuscitation has ordered. Will continue NPO. Leukocytosis worsened. Will start imipenem cilastatin. Recheck CT abdomen to rule out necrosis. GI consultation. # mild transaminitis likely secondary to alcohol abuse -continue supportive care with IV fluids -[place] criteria on admission 2 points -pain control p.r.n. Dilaudid 1 mg q 12 hours p.r.n. -IV fluids aggressive hydration continue normal saline 200 cc/hour -NPO for now for bowel rest. Will do trial of clear liquid which did not go well. Continue NPO for now -leukocytosis consistent with pancreatitis remains persistent # alcohol abuse -drinks 99% banana, high proof alcohol last 4-5 years -patient states he has no alcohol withdrawal history -will have [facility]WA protocol to monitor -multivitamin, thiamine, folic acid supplement -director of patient care consult for alcohol rehab services # hypokalemia -secondary to alcohol abuse -potassium 2.3 giving 40 mEq IV potassium chloride x2 Aggressive potassium replacement as ordered # nicotine dependence -patient vapes daily -will give nicotine patch Diet: NPO for bowel rest DVT prophylaxis: Lovenox Code status: Full code Disposition: Likely home in 3-5 days 06/06/2022 interval history: patient with history of alcohol abuse presented with pancreatitis, patient lipase was 680 on 06/04, today patient lipase has risen to 1173 patient continued to complain of abdominal pain patient was seen by GI recommended that patient clinical symptoms are worsening, and instructed to stop oral intake, will start patient on PPN, and monitor, patient has a risk of DT, placed the patient on CIWA protocol and Ativan as needed, Will continue to monitor and further recommendation to follow. Subjective Date/time seen: 06/06/22 16:40 He tried some popsicles yesterday and had felt worse since then. His feels bloated and hurting more. Nausea present no vomiting. Remains afebrile. 06/06/2022 interval history: patient with history of alcohol abuse presented with pancreatitis, patient lipase was 680 on 06/04, today patient lipase has risen to 1173 patient continued to complain of abdominal pain patient was seen by GI recommended that patient clinical symptoms are worsening, and instructed to stop oral intake, will start patient on PPN, and monitor, patient has a risk of DT, placed the patient on CIWA protocol and Ativan as needed, Will continue to monitor and further recommendation to follow. Review of Systems Review of Systems: All systems reviewed & are unremarkable except as noted in HPI and below Exam Narrative: moderately obese Patient is comfortable, NAD HEENT: eyes are clear and none icteric LUNGS: normal respiratory effort ABD: obese distended Lower extremities: no edema SKIN: nonjaundiced Neuro: grossly intact. Objective Data Vital Signs Vital Signs: Vital Signs - 24 hr 06/05/22 19:39 06/05/22 22:20 06/06/22 00:54 Temperature 97.1 F L Pulse Rate 102 H Pulse Rate [Monitor] 107 H 102 H Respiratory Rate 18 Blood Pressure 144/80 H Pulse Oximetry 97 Oxygen Delivery 06/05/22 22:15 06/06/22 03:17 06/05/22 20:00 Temperature 96.0 F L Pulse Rate 92 103 H Pulse Rate [Monitor] Respiratory Rate 18 Blood Pressure 127/74 Pulse Oximetry 96 Oxygen Delivery Room Air 06/06/22 00:00 06/06/22 04:00 06/06/22 04:00 Temperature Pulse Rate 106 H 96 Pulse Rate [Monitor] 97 Respiratory Rate
[2022-06-06] MEDS: SODIUM CHLORIDE 0.9% IV 1,000 ML 100 ML IV CONT (16:52)
[2022-06-06] MEDS: KETOROLAC 15 MG/ML VIAL (*BKC) IV PUSH (20:58)
[2022-06-06] MEDS: CENTRAL LINE FLUSH 10 ML IV PUSH (21:46)
[2022-06-07] VITALS (9 sets, daily range): BP systolic 133–149; BP diastolic 83–86; PULSE 88–106; RESP 16–20; TEMP 36.4–36.8; O2SAT 95–96
[2022-06-07] MEDS: HYDROmorphone HCL INJ (*CRX) 1 MG/ML SYR IV PUSH ×7 (02:54→22:25)
[2022-06-07] MEDS: SODIUM CHLORIDE 0.9% IV 1,000 ML 100 ML IV CONT ×2 (04:17→13:24)
[2022-06-07] MEDS: ONDANSETRON INJ 4 MG/2 ML VIAL IV PUSH ×2 (06:04→15:48)
[2022-06-07 06:06] LABS: Hematocrit 33.4 % (42.0-52.0); Mean Corpuscular HGB Conc 32.9 g/dl (32-36); Mean Corpuscular Hemoglobin 33.2 pg (26-34); Mean Corpuscular Volume 100.9 fl (80-100); Mean Platelet Volume 10.5 fl (7.4-10.4); Platelet Count Result 434 k/mm3 (150-375); Red Blood Count 3.31 M/mm3 (4.6-6.20); White Blood Count 17.8 K/mm3 (4.5-10.0)
[2022-06-07] MEDS: CENTRAL LINE FLUSH 10 ML IV PUSH ×3 (06:06→22:29)
[2022-06-07] MEDS: CENTRAL LINE FLUSH 20 ML IV PUSH (06:06)
[2022-06-07 06:25] LABS: Alanine Aminotransferase 59 U/L (6-50); Alkaline Phosphatase 106 U/L (38-126); Anion Gap 4 mmol/L (8-16); Aspartate Amino Transferase 76 U/L (17-59); Bilirubin,Total 1.1 mg/dL (0.2-1.3); Blood Urea Nitrogen 3 mg/dL (9-20); Calcium 7.7 mg/dL (8.4-10.2); Carbon Dioxide 29 mmol/L (22-30); Chloride 104 mmol/L (98-107); Estimated CRCL calculation 228 ml/min; Estimated Glomerular Filt Rate > 60; Glucose 112 mg/dL (65-110); Lipase 1190 U/L (23-300); Potassium 3.7 mmol/L (3.4-5.0); Sodium 137 mmol/L (137-145)
[2022-06-07] MEDS: PANTOPRAZOLE SODIUM IV 40 MG VIAL IV PUSH (09:14)
[2022-06-07] MEDS: FOLIC ACID 1 MG/0.2 ML INJ IV PUSH (09:15)
[2022-06-07] MEDS: NICOTINE (*PBKC) 14 MG PATCH 1 PATCH TRANSDERM (09:15)
[2022-06-07] MEDS: THIAMINE HCL 200 MG/2 ML VIAL 100 MG IV PUSH (09:15)
[2022-06-07] MEDS: ENOXAPARIN 40 MG/0.4 ML SYRINGE SUB-Q (09:46)
--- NOTE | 2022-06-07 10:44 | PM.IMPN ---
Progress Note: A&P Assessment and Plan (1) Acute pancreatitis: Code(s): K85.90 - Acute pancreatitis without necrosis or infection, unspecified Status: Acute (2) Acute hypokalemia: Code(s): E87.6 - Hypokalemia Status: Acute (3) Alcohol abuse: Code(s): F10.10 - Alcohol abuse, uncomplicated Status: Acute (4) Hyperbilirubinemia: Code(s): E80.6 - Other disorders of bilirubin metabolism Status: Acute Plan # acute alcohol pancreatitis continue IV resuscitation has ordered. Will continue NPO. Leukocytosis worsened. Will start imipenem cilastatin. Recheck CT abdomen to rule out necrosis. GI consultation. # mild transaminitis likely secondary to alcohol abuse -continue supportive care with IV fluids -[place] criteria on admission 2 points -pain control p.r.n. Dilaudid 1 mg q 12 hours p.r.n. -IV fluids aggressive hydration continue normal saline 200 cc/hour -NPO for now for bowel rest. Will do trial of clear liquid which did not go well. Continue NPO for now -leukocytosis consistent with pancreatitis remains persistent # alcohol abuse -drinks 99% banana, high proof alcohol last 4-5 years -patient states he has no alcohol withdrawal history -will have [facility] protocol to monitor -multivitamin, thiamine, folic acid supplement -care team assistant consult for alcohol rehab services # hypokalemia -secondary to alcohol abuse -potassium 2.3 giving 40 mEq IV potassium chloride x2 Aggressive potassium replacement as ordered # nicotine dependence -patient vapes daily -will give nicotine patch Diet: NPO for bowel rest DVT prophylaxis: Lovenox Code status: Full code Disposition: Likely home in 3-5 days 06/07/2022 interval history: patient with history of alcohol abuse presented with pancreatitis, patient lipase was 680 on 06/04, on 06/06 patient lipase had risen to 1173 patient continued to complain of abdominal pain patient was seen by GI recommended that patient clinical symptoms are worsening, and instructed to stop oral intake, started patient on PPN, and monitor, today patient lipase levels slightly 1190 his pain is little better, will CPM, patient has a risk of DT, placed the patient on CIWA protocol and Ativan as needed, Will continue to monitor and further recommendation to follow. Subjective Date/time seen: 06/07/22 10:44 Interval history: He tried some popsicles yesterday and had felt worse since then. His feels bloated and hurting more. Nausea present no vomiting. Remains afebrile. 06/07/2022 interval history: patient with history of alcohol abuse presented with pancreatitis, patient lipase was 680 on 06/04, on 06/06 patient lipase had risen to 1173 patient continued to complain of abdominal pain patient was seen by GI recommended that patient clinical symptoms are worsening, and instructed to stop oral intake, started patient on PPN, and monitor, today patient lipase levels slightly 1190 his pain is little better, will CPM, patient has a risk of DT, placed the patient on CIWA protocol and Ativan as needed, Will continue to monitor and further recommendation to follow. Review of Systems Review of Systems: All systems reviewed & are unremarkable except as noted in HPI and below Exam Narrative: moderately obese Patient is comfortable, NAD HEENT: eyes are clear and none icteric LUNGS: normal respiratory effort ABD: obese distended Lower extremities: no edema SKIN: nonjaundiced Neuro: grossly intact. Objective Data Vital Signs Vital Signs: Vital Signs - 24 hr 06/06/22 12:00 06/06/22 15:38 06/06/22 12:00 Temperature 97.1 F L Pulse Rate 98 99 Pulse Rate [Monitor] 97 Respiratory Rate 20 Blood Pressure 138/80 138/80 Pulse Oximetry 97 Oxygen Delivery 06/06/22 16:00 06/06/22 16:00 06/06/22 20:10 Temperature 98.1 F Pulse Rate 99 111 H Pulse Rate [Monitor] 86 Respiratory Rate 20 Blood Pressure 142/62 H 149/86 H
--- NOTE | 2022-06-07 11:03 | WPDGIPROGNO ---
Progress Note: A&P Assessment and Plan (1) Acute pancreatitis: Code(s): K85.90 - Acute pancreatitis without necrosis or infection, unspecified Status: Acute Assessment and Plan: As noted above, lipase is over 400. CT scan shows: Diffuse fatty infiltration of the liver present. The spleen, gallbladder, adrenals and kidneys are within normal limits. Extensive peripancreatic fluid and inflammatory changes similar to prior exam, consistent with acute pancreatitis. No pseudocyst evident. No gross pancreatic necrosis clearly identified. No evidence of aortic aneurysm.? No lymphadenopathy is seen. So far no significant improvement. He in fact feels a little more uncomfortable. I told that he may need parental element today herrera if his pancreatitis does not resolve in a few days. It is too soon however at this point to know that that would be necessary. 06/06/2022 lipase has increased. He obviously has a quite severe case of pancreatitis. He will need to be started on hyperalimentation. 06/07/2022 lipase is a bit lower (2) Acute hypokalemia: Code(s): E87.6 - Hypokalemia Status: Acute Assessment and Plan: He required several potassium riders. electrolytes now are okay although phosphorus is low and TPN should help ameliorate that (3) Alcohol abuse: Code(s): F10.10 - Alcohol abuse, uncomplicated Status: Acute Assessment and Plan: He states he drinks at least 10 or 12 shots of 100 proof alcohol every day He insists that he is going to stop drinking completely. I did explain him that once a person has had pancreatitis. It does not take that much alcohol for to come back and that in some individuals each episode is worse any can be fatal. (4) Hyperbilirubinemia: Code(s): E80.6 - Other disorders of bilirubin metabolism Status: Acute Assessment and Plan: Bilirubin was over 4 but now down to 2.0. He denies any prior episodes of jaundice. His hearing, which was very dark to 3 days ago has come back to almost normal color. I observed urine in his urine now and was slightly orangish yellow 06/04/2022 bilirubin is a little lower, 1.7 (5) Leukocytosis: Code(s): D72.829 - Elevated white blood cell count, unspecified Status: Acute Assessment and Plan: white blood count was in the mid 20,000 and has come down now to 17,800. (6) Anemia: Code(s): D64.9 - Anemia, unspecified Status: Acute Assessment and Plan: his hemoglobin has dropped from 12-11. I do not think however at this point we need to get overly concerned about that. Will watch for any signs of bleeding of course. Plan I explained the patient that getting over pancreatitis requires resting the pancreas, a can to resting a sprained ankle. I told that as his pain diminishes that will be an indication that his pancreas has healed enough that he is able to have that just double food. For now he will need to stay on clear liquids. Explain him that pancreatitis can take days to many weeks to recover from. In some cases hyperalimentation is necessary. I explained that he could get pancreatic necrosis. He is on antibiotics now. typically we would not need to start these until 7-10 days at which point the risk of infected necrosis would appear but he is on imipenem which is the appropriate antibiotic. We need to monitor calcium level magnesium, and phosphorus . Rehydration is essential as it 1 can have a great deal of 3rd spacing of fluid of acute pancreatitis. Will watch for signs of hemoconcentration to guide us in that. I reminded him that bowel rest is the main treatment approach for pancreatitis as there is no medical therapy to accelerate the healing process. He understands that in the fact he stated that he is not even comfortable drinking liquids today Subjective Date/time seen: 06/07/22 11:03 He seems comfortable he states as long as he gets his pain medications he is i
[2022-06-07] MEDS: AMINO ACIDS 4.25%/D5W/LYTES/CA 2,000 ML 80 ML IV CONT (13:24)
[2022-06-07] MEDS: ACETAMINOPHEN 325 MG TABLET 650 MG PO ×2 (17:03→23:21)
[2022-06-08] VITALS (7 sets, daily range): BP systolic 141–155; BP diastolic 79–89; PULSE 78–97; RESP 16–18; TEMP 36.6–37.2; O2SAT 96–98
[2022-06-08] MEDS: HYDROmorphone HCL INJ (*CRX) 1 MG/ML SYR IV PUSH ×5 (01:26→16:28)
[2022-06-08] MEDS: SODIUM CHLORIDE 0.9% IV 1,000 ML 100 ML IV CONT ×2 (02:21→13:24)
[2022-06-08 04:48] LABS: Hematocrit 34.3 % (42.0-52.0); Hemoglobin 11.2 g/dL (14.0-18.0); Mean Corpuscular HGB Conc 32.7 g/dl (32-36); Mean Corpuscular Hemoglobin 33.2 pg (26-34); Mean Corpuscular Volume 101.8 fl (80-100); Mean Platelet Volume 10.5 fl (7.4-10.4); Platelet Count Result 416 k/mm3 (150-375); Red Blood Count 3.37 M/mm3 (4.6-6.20); Red Cell Distribution Width 15.7 % (11.5-14.5); White Blood Count 13.1 K/mm3 (4.5-10.0)
[2022-06-08] MEDS: CENTRAL LINE FLUSH 10 ML IV PUSH ×3 (05:56→20:48)
[2022-06-08] MEDS: CENTRAL LINE FLUSH 20 ML IV PUSH (05:56)
[2022-06-08] MEDS: ONDANSETRON INJ 4 MG/2 ML VIAL IV PUSH ×2 (06:01→16:33)
[2022-06-08] MEDS: THIAMINE HCL 200 MG/2 ML VIAL 100 MG IV PUSH (08:09)
[2022-06-08] MEDS: ENOXAPARIN 40 MG/0.4 ML SYRINGE SUB-Q (08:09)
[2022-06-08] MEDS: PANTOPRAZOLE SODIUM IV 40 MG VIAL IV PUSH (08:09)
[2022-06-08] MEDS: FOLIC ACID 1 MG/0.2 ML INJ IV PUSH (08:09)
[2022-06-08] MEDS: NICOTINE (*PBKC) 14 MG PATCH 1 PATCH TRANSDERM (08:09)
--- NOTE | 2022-06-08 08:30 | WPDGIPROGNO ---
Progress Note: A&P Assessment and Plan (1) Acute pancreatitis: Code(s): K85.90 - Acute pancreatitis without necrosis or infection, unspecified Status: Acute Assessment and Plan: As noted above, lipase is over 400. CT scan shows: Diffuse fatty infiltration of the liver present. The spleen, gallbladder, adrenals and kidneys are within normal limits. Extensive peripancreatic fluid and inflammatory changes similar to prior exam, consistent with acute pancreatitis. No pseudocyst evident. No gross pancreatic necrosis clearly identified. No evidence of aortic aneurysm.? No lymphadenopathy is seen. So far no significant improvement. He in fact feels a little more uncomfortable. I told that he may need parental element today herrera if his pancreatitis does not resolve in a few days. It is too soon however at this point to know that that would be necessary. 06/06/2022 lipase has increased. He obviously has a quite severe case of pancreatitis. He will need to be started on hyperalimentation. 06/07/2022 lipase is a bit lower 06/09/2022 lipase is in the 900s. BUN is 5 and creatinine 0.4, indicating is well hydrated. I am concerned about his lack of appetite and even interest in his taking sips of water. Will recheck CT scan. although he has necrotizing pancreatitis, I do not think he has infected necrosis given the consistent drop in his white blood count (2) Acute hypokalemia: Code(s): E87.6 - Hypokalemia Status: Acute Assessment and Plan: He required several potassium riders. electrolytes now are okay although phosphorus is low and TPN should help ameliorate that (3) Alcohol abuse: Code(s): F10.10 - Alcohol abuse, uncomplicated Status: Acute Assessment and Plan: He states he drinks at least 10 or 12 shots of 100 proof alcohol every day He insists that he is going to stop drinking completely. I did explain him that once a person has had pancreatitis. It does not take that much alcohol for to come back and that in some individuals each episode is worse any can be fatal. (4) Hyperbilirubinemia: Code(s): E80.6 - Other disorders of bilirubin metabolism Status: Acute Assessment and Plan: Bilirubin was over 4 but now down to 2.0. He denies any prior episodes of jaundice. His hearing, which was very dark to 3 days ago has come back to almost normal color. I observed urine in his urine now and was slightly orangish yellow 06/04/2022 bilirubin is a little lower, 1.7 (5) Leukocytosis: Code(s): D72.829 - Elevated white blood cell count, unspecified Status: Acute Assessment and Plan: white blood count was in the mid 20,000 and has come down now to Thirteen thousand (6) Anemia: Code(s): D64.9 - Anemia, unspecified Status: Acute Assessment and Plan: his hemoglobin has dropped from 12-11. I do not think however at this point we need to get overly concerned about that. Will watch for any signs of bleeding of course. Plan I explained the patient that getting over pancreatitis requires resting the pancreas, a can to resting a sprained ankle. I told that as his pain diminishes that will be an indication that his pancreas has healed enough that he is able to have that just double food. For now he will need to stay on clear liquids. Explain him that pancreatitis can take days to many weeks to recover from. In some cases hyperalimentation is necessary. I explained that he could get pancreatic necrosis. He is on antibiotics now. typically we would not need to start these until 7-10 days at which point the risk of infected necrosis would appear but he is on imipenem which is the appropriate antibiotic. We need to monitor calcium level magnesium, and phosphorus . Rehydration is essential as it 1 can have a great deal of 3rd spacing of fluid of acute pancreatitis. Will watch for signs of hemoconcentration to guide us in that. I reminded him
[2022-06-08 09:56] LABS: Alanine Aminotransferase 48 U/L (6-50); Albumin Level 3.2 g/dL (3.5-5.1); Alkaline Phosphatase 92 U/L (38-126); Anion Gap 6 mmol/L (8-16); Aspartate Amino Transferase 48 U/L (17-59); Bilirubin,Total 0.8 mg/dL (0.2-1.3); Blood Urea Nitrogen 5 mg/dL (9-20); Calcium 8.2 mg/dL (8.4-10.2); Carbon Dioxide 28 mmol/L (22-30); Chloride 104 mmol/L (98-107); Estimated CRCL calculation 277 ml/min; Estimated Glomerular Filt Rate > 60; Glucose 120 mg/dL (65-110); Lipase 985 U/L (23-300); Magnesium 2.1 mg/dL (1.6-2.3); Potassium 3.8 mmol/L (3.4-5.0); Sodium 138 mmol/L (137-145)
--- NOTE | 2022-06-08 12:05 | PM.IMPN ---
Progress Note: A&P Assessment and Plan (1) Acute pancreatitis: Code(s): K85.90 - Acute pancreatitis without necrosis or infection, unspecified Status: Acute (2) Acute hypokalemia: Code(s): E87.6 - Hypokalemia Status: Acute (3) Alcohol abuse: Code(s): F10.10 - Alcohol abuse, uncomplicated Status: Acute (4) Hyperbilirubinemia: Code(s): E80.6 - Other disorders of bilirubin metabolism Status: Acute Plan # acute alcohol pancreatitis continue IV resuscitation has ordered. Will continue NPO. Leukocytosis worsened. Will start imipenem cilastatin. Recheck CT abdomen to rule out necrosis. GI consultation. # mild transaminitis likely secondary to alcohol abuse -continue supportive care with IV fluids -[place] criteria on admission 2 points -pain control p.r.n. Dilaudid 1 mg q 12 hours p.r.n. -IV fluids aggressive hydration continue normal saline 200 cc/hour -NPO for now for bowel rest. Will do trial of clear liquid which did not go well. Continue NPO for now -leukocytosis consistent with pancreatitis remains persistent # alcohol abuse -drinks 99% banana, high proof alcohol last 4-5 years -patient states he has no alcohol withdrawal history -will have [facility] protocol to monitor -multivitamin, thiamine, folic acid supplement -career coordinator consult for alcohol rehab services # hypokalemia -secondary to alcohol abuse -potassium 2.3 giving 40 mEq IV potassium chloride x2 Aggressive potassium replacement as ordered # nicotine dependence -patient vapes daily -will give nicotine patch Diet: NPO for bowel rest DVT prophylaxis: Lovenox Code status: Full code Disposition: Likely home in 3-5 days 06/08/2022 interval history: patient with history of alcohol abuse presented with pancreatitis, patient lipase was 680 on 06/04, on 06/06 patient lipase had risen to 1173 patient continued to complain of abdominal pain patient was seen by GI recommended that patient clinical symptoms are worsening, and instructed to stop oral intake, started patient on PPN and IV pain medications and monitor, today patient lipase levels trending down to 985 his pain is little better, will reduce IV diludid to to naz 8hrs, and add IV tylenol 1g q6 PRN, patient has a risk of DT, placed the patient on CIWA protocol and Ativan as needed, Will continue to monitor and further recommendation to follow. Subjective Date/time seen: 06/08/22 12:05 Interval history: He tried some popsicles yesterday and had felt worse since then. His feels bloated and hurting more. Nausea present no vomiting. Remains afebrile. 06/08/2022 interval history: patient with history of alcohol abuse presented with pancreatitis, patient lipase was 680 on 06/04, on 06/06 patient lipase had risen to 1173 patient continued to complain of abdominal pain patient was seen by GI recommended that patient clinical symptoms are worsening, and instructed to stop oral intake, started patient on PPN and IV pain medications and monitor, today patient lipase levels trending down to 985 his pain is little better, will reduce IV diludid to to naz 8hrs, and add IV tylenol 1g q6 PRN, patient has a risk of DT, placed the patient on CIWA protocol and Ativan as needed, Will continue to monitor and further recommendation to follow. Review of Systems Review of Systems: All systems reviewed & are unremarkable except as noted in HPI and below Exam Narrative: moderately obese Patient is comfortable, NAD HEENT: eyes are clear and none icteric LUNGS: normal respiratory effort ABD: obese distended Lower extremities: no edema SKIN: nonjaundiced Neuro: grossly intact. Objective Data Vital Signs Vital Signs: Vital Signs - 24 hr 06/07/22 14:04 06/07/22 16:00 06/07/22 20:31 Temperature 97.6 F 98.2 F Pulse Rate 106 H 97 Pulse Rate [Monitor] 88 Respiratory Rate 17 16 Blood Pressure 133/84 149/83 H Pulse Oximetry 95 96 Oxy
[2022-06-08] MEDS: AMINO ACIDS 4.25%/D5W/LYTES/CA 2,000 ML 80 ML IV CONT (13:24)
[2022-06-08] MEDS: HYDROcodone/acetaminophen (*CRX) 5-325 MG TABLET 1 TAB PO (20:44)
[2022-06-08] MEDS: LORazepam INJ (*CRX) 2 MG/ML VIAL 1 MG IV PUSH (20:45)
[2022-06-09] VITALS: BP 141/81; PULSE 97
[2022-06-09] MEDS: HYDROmorphone HCL INJ (*CRX) 1 MG/ML SYR IV PUSH ×3 (00:11→16:42)
[2022-06-09] MEDS: SODIUM CHLORIDE 0.9% IV 1,000 ML 100 ML IV CONT ×2 (00:11→13:17)
[2022-06-09] MEDS: HYDROcodone/acetaminophen (*CRX) 5-325 MG TABLET 1 TAB PO ×5 (01:53→22:17)
[2022-06-09 04:00] VITALS: BP 144/88; PULSE 97
[2022-06-09 05:13] VITALS: BP 144/88; PULSE 90; RESP 18; TEMP 36.6; O2SAT 97
[2022-06-09] MEDS: CENTRAL LINE FLUSH 10 ML IV PUSH ×3 (05:14→20:26)
[2022-06-09 05:25] LABS: Hematocrit 35.6 % (42.0-52.0); Hemoglobin 11.7 g/dL (14.0-18.0); Mean Corpuscular HGB Conc 32.9 g/dl (32-36); Mean Corpuscular Hemoglobin 33.9 pg (26-34); Mean Corpuscular Volume 103.2 fl (80-100); Mean Platelet Volume 10.6 fl (7.4-10.4); Platelet Count Result 481 k/mm3 (150-375); Red Blood Count 3.45 M/mm3 (4.6-6.20); Red Cell Distribution Width 15.4 % (11.5-14.5); White Blood Count 12.7 K/mm3 (4.5-10.0)
[2022-06-09 05:37] LABS: Alanine Aminotransferase 43 U/L (6-50); Albumin Level 3.4 g/dL (3.5-5.1); Alkaline Phosphatase 91 U/L (38-126); Anion Gap 5 mmol/L (8-16); Aspartate Amino Transferase 50 U/L (17-59); Bilirubin,Total 0.8 mg/dL (0.2-1.3); Blood Urea Nitrogen 5 mg/dL (9-20); Calcium 8.5 mg/dL (8.4-10.2); Carbon Dioxide 28 mmol/L (22-30); Chloride 101 mmol/L (98-107); Estimated CRCL calculation 277 ml/min; Estimated Glomerular Filt Rate > 60; Glucose 110 mg/dL (65-110); Lipase 993 U/L (23-300); Magnesium 2.2 mg/dL (1.6-2.3); Potassium 4.3 mmol/L (3.4-5.0); Sodium 134 mmol/L (137-145)
[2022-06-09 08:30] VITALS: O2SAT 96
[2022-06-09] MEDS: NICOTINE (*PBKC) 14 MG PATCH 1 PATCH TRANSDERM (08:35)
[2022-06-09] MEDS: ENOXAPARIN 40 MG/0.4 ML SYRINGE SUB-Q (08:35)
[2022-06-09] MEDS: FOLIC ACID 1 MG/0.2 ML INJ IV PUSH (08:35)
[2022-06-09] MEDS: THIAMINE HCL 200 MG/2 ML VIAL 100 MG IV PUSH (08:35)
[2022-06-09] MEDS: PANTOPRAZOLE SODIUM IV 40 MG VIAL IV PUSH (08:35)
--- NOTE | 2022-06-09 14:01 | PM.IMPN ---
Progress Note: A&P Assessment and Plan (1) Acute pancreatitis: Code(s): K85.90 - Acute pancreatitis without necrosis or infection, unspecified Status: Acute (2) Acute hypokalemia: Code(s): E87.6 - Hypokalemia Status: Acute (3) Alcohol abuse: Code(s): F10.10 - Alcohol abuse, uncomplicated Status: Acute (4) Hyperbilirubinemia: Code(s): E80.6 - Other disorders of bilirubin metabolism Status: Acute Plan # acute alcohol pancreatitis continue IV resuscitation has ordered. Will continue NPO. Leukocytosis worsened. Will start imipenem cilastatin. Recheck CT abdomen to rule out necrosis. GI consultation. # mild transaminitis likely secondary to alcohol abuse -continue supportive care with IV fluids -[place] criteria on admission 2 points -pain control p.r.n. Dilaudid 1 mg q 12 hours p.r.n. -IV fluids aggressive hydration continue normal saline 200 cc/hour -NPO for now for bowel rest. Will do trial of clear liquid which did not go well. Continue NPO for now -leukocytosis consistent with pancreatitis remains persistent # alcohol abuse -drinks 99% banana, high proof alcohol last 4-5 years -patient states he has no alcohol withdrawal history -will have [facility] protocol to monitor -multivitamin, thiamine, folic acid supplement -student career development specialist consult for alcohol rehab services # hypokalemia -secondary to alcohol abuse -potassium 2.3 giving 40 mEq IV potassium chloride x2 Aggressive potassium replacement as ordered # nicotine dependence -patient vapes daily -will give nicotine patch Diet: NPO for bowel rest DVT prophylaxis: Lovenox Code status: Full code Disposition: Likely home in 3-5 days 06/09/2022 interval history: patient with history of alcohol abuse presented with pancreatitis, patient lipase was 680 on 06/04, on 06/06 patient lipase had risen to 1173 patient continued to complain of abdominal pain patient was seen by GI recommended that patient clinical symptoms are worsening, and instructed to stop oral intake, started patient on PPN and IV pain medications and monitor, on 06/08 patient lipase levels were trending down to 985 his pain was little better, reduced IV diludid to to naz 8hrs, and added IV tylenol 1g q6 PRN, today patient lipase is stable today at 993, seen by GI started patient on clear liquids, will continue monitor as patient can tolerate, will advance his diet. patient has a risk of DT, placed the patient on CIWA protocol and Ativan as needed, Will continue to monitor and further recommendation to follow. Subjective Date/time seen: 06/09/22 14:01 Interval history: He tried some popsicles yesterday and had felt worse since then. His feels bloated and hurting more. Nausea present no vomiting. Remains afebrile. 06/09/2022 interval history: patient with history of alcohol abuse presented with pancreatitis, patient lipase was 680 on 06/04, on 06/06 patient lipase had risen to 1173 patient continued to complain of abdominal pain patient was seen by GI recommended that patient clinical symptoms are worsening, and instructed to stop oral intake, started patient on PPN and IV pain medications and monitor, on 06/08 patient lipase levels were trending down to 985 his pain was little better, reduced IV diludid to to naz 8hrs, and added IV tylenol 1g q6 PRN, today patient lipase is stable today at 993, seen by GI started patient on clear liquids, will continue monitor as patient can tolerate, will advance his diet. patient has a risk of DT, placed the patient on CIWA protocol and Ativan as needed, Will continue to monitor and further recommendation to follow. Review of Systems Review of Systems: All systems reviewed & are unremarkable except as noted in HPI and below Exam Narrative: moderately obese Patient is comfortable, NAD HEENT: eyes are clear and none icteric LUNGS: normal respiratory effort ABD: obese distended Lower extremities:
[2022-06-09 14:15] VITALS: BP 138/82; PULSE 90; RESP 18; TEMP 36.4; O2SAT 96
[2022-06-09] MEDS: AMINO ACIDS 4.25%/D5W/LYTES/CA 2,000 ML 80 ML IV CONT (14:24)
[2022-06-09] MEDS: LORazepam INJ (*CRX) 2 MG/ML VIAL 1 MG IV PUSH (20:25)
[2022-06-09 22:34] VITALS: BP 144/75; PULSE 97; RESP 20; TEMP 36.2; O2SAT 98
[2022-06-10] MEDS: SODIUM CHLORIDE 0.9% IV 1,000 ML 100 ML IV CONT ×3 (00:19→22:09)
[2022-06-10] MEDS: HYDROmorphone HCL INJ (*CRX) 1 MG/ML SYR IV PUSH ×3 (00:43→17:11)
[2022-06-10] MEDS: HYDROcodone/acetaminophen (*CRX) 5-325 MG TABLET 1 TAB PO ×5 (02:17→20:39)
[2022-06-10] MEDS: CENTRAL LINE FLUSH 10 ML IV PUSH ×2 (05:13→14:58)
[2022-06-10] MEDS: CENTRAL LINE FLUSH 20 ML IV PUSH (05:13)
[2022-06-10 05:18] LABS: Hematocrit 37.1 % (42.0-52.0); Hemoglobin 12.2 g/dL (14.0-18.0); Mean Corpuscular HGB Conc 32.9 g/dl (32-36); Mean Corpuscular Hemoglobin 33.7 pg (26-34); Mean Corpuscular Volume 102.5 fl (80-100); Mean Platelet Volume 10.5 fl (7.4-10.4); Platelet Count Result 545 k/mm3 (150-375); Red Blood Count 3.62 M/mm3 (4.6-6.20); White Blood Count 12.3 K/mm3 (4.5-10.0)
[2022-06-10 05:28] LABS: Alanine Aminotransferase 40 U/L (6-50); Albumin Level 3.6 g/dL (3.5-5.1); Alkaline Phosphatase 84 U/L (38-126); Anion Gap 6 mmol/L (8-16); Aspartate Amino Transferase 46 U/L (17-59); Bilirubin,Total 0.7 mg/dL (0.2-1.3); Blood Urea Nitrogen 6 mg/dL (9-20); Calcium 8.7 mg/dL (8.4-10.2); Carbon Dioxide 28 mmol/L (22-30); Chloride 100 mmol/L (98-107); Estimated CRCL calculation 277 ml/min; Estimated Glomerular Filt Rate > 60; Glucose 114 mg/dL (65-110); Lipase 983 U/L (23-300); Magnesium 2.3 mg/dL (1.6-2.3); Potassium 4.1 mmol/L (3.4-5.0); Sodium 134 mmol/L (137-145)
[2022-06-10 06:00] VITALS: BP 137/86; PULSE 84; RESP 18; TEMP 35.9; O2SAT 96
[2022-06-10] MEDS: NICOTINE (*PBKC) 14 MG PATCH 1 PATCH TRANSDERM (09:00)
[2022-06-10] MEDS: PANTOPRAZOLE SODIUM IV 40 MG VIAL IV PUSH (09:00)
[2022-06-10] MEDS: FOLIC ACID 1 MG/0.2 ML INJ IV PUSH (09:00)
[2022-06-10] MEDS: ENOXAPARIN 40 MG/0.4 ML SYRINGE SUB-Q (09:01)
[2022-06-10] MEDS: THIAMINE HCL 200 MG/2 ML VIAL 100 MG IV PUSH (09:01)
--- NOTE | 2022-06-10 11:58 | PCNFU ---
Nutrition Follow-Up Complete: Altered GI function as related to Pancreatitis as evidenced by PPN Goal:Meet estimated nutritional needs Pt current nutrition is Clear liquids, PPN. Nutrition recommendation: Continue with current plan of care. Last recorded weight is 99.9 kg - down from 104kg. Bowel Motility: +BM 06/08 Labs Reviewed: hgb:12.2, HCT:37.1, NA:134, BUN:6, Cr:0.4 Meds Noted: lovenox, thiamine, folic acid Skin: WNL Additional Notes: Pt is on a clear liquid diet with minimal intake related to abdominal discomfort. PPN running @ 80ml/hr providing 653 kcals/82 gms protein. Meeting 28% kcal needs and 100% protein needs. No lipids at this time. Will monitor every Thursday and Thursday.
--- NOTE | 2022-06-10 12:24 | WPDGIPROGNO ---
Progress Note: A&P Assessment and Plan (1) Acute pancreatitis: Code(s): K85.90 - Acute pancreatitis without necrosis or infection, unspecified Status: Acute Assessment and Plan: As noted above, lipase is over 400. CT scan shows: Diffuse fatty infiltration of the liver present. The spleen, gallbladder, adrenals and kidneys are within normal limits. Extensive peripancreatic fluid and inflammatory changes similar to prior exam, consistent with acute pancreatitis. No pseudocyst evident. No gross pancreatic necrosis clearly identified. No evidence of aortic aneurysm.? No lymphadenopathy is seen. So far no significant improvement. He in fact feels a little more uncomfortable. I told that he may need parental element today herrera if his pancreatitis does not resolve in a few days. It is too soon however at this point to know that that would be necessary. 06/06/2022 lipase has increased. He obviously has a quite severe case of pancreatitis. He will need to be started on hyperalimentation. 06/07/2022 lipase is a bit lower 06/09/2022 lipase is in the 900s. BUN is 5 and creatinine 0.4, indicating is well hydrated. I am concerned about his lack of appetite and even interest in his taking sips of water. Will recheck CT scan. although he has necrotizing pancreatitis, I do not think he has infected necrosis given the consistent drop in his white blood count 06/10/2022 he is having less pain. He does have bowel sounds today. I think that he is finally turning the corner. The CT scan done yesterday shows: Persistent heterogeneous enhancement in the pancreatic head and new linear hypoenhancement in the pancreatic tail, both concerning for necrotizing pancreatitis. Increasing size and organization of multiple peripancreatic fluid collections, most consistent with acute necrotic collections. (2) Acute hypokalemia: Code(s): E87.6 - Hypokalemia Status: Acute Assessment and Plan: No recent electrolyte abnormalities (3) Alcohol abuse: Code(s): F10.10 - Alcohol abuse, uncomplicated Status: Acute Assessment and Plan: He states he drinks at least 10 or 12 shots of 100 proof alcohol every day He insists that he is going to stop drinking completely. I did explain him that once a person has had pancreatitis. It does not take that much alcohol for to come back and that in some individuals each episode is worse any can be fatal. 06/10/2022 I reminded him that each case of pancreatitis can be worse than the 1 prior and that it will not take as much to bring on an attack of pancreatitis once a person has had 1. He states that he is resolution in his plan to stay away from alcohol completely (4) Hyperbilirubinemia: Code(s): E80.6 - Other disorders of bilirubin metabolism Status: Acute Assessment and Plan: Bilirubin was over 4 but now down to 2.0. He denies any prior episodes of jaundice. His hearing, which was very dark to 3 days ago has come back to almost normal color. I observed urine in his urine now and was slightly orangish yellow 06/04/2022 bilirubin is a little lower, 1.7 06/10/2022 today bilirubin is 0.7, back to normal (5) Leukocytosis: Code(s): D72.829 - Elevated white blood cell count, unspecified Status: Acute Assessment and Plan: White blood count continues to decrease, just over 12,000 now (6) Anemia: Code(s): D64.9 - Anemia, unspecified Status: Acute Assessment and Plan: his hemoglobin has dropped from 12-11. I do not think however at this point we need to get overly concerned about that. Will watch for any signs of bleeding of course. Plan I explained the patient that getting over pancreatitis requires resting the pancreas, a can to resting a sprained ankle. I told that as his pain diminishes that will be an indication that his pancreas has healed enough that he is able to have that just double food. For now he will need to stay
--- NOTE | 2022-06-10 13:44 | PM.IMPN ---
Progress Note: A&P Assessment and Plan (1) Acute pancreatitis: Code(s): K85.90 - Acute pancreatitis without necrosis or infection, unspecified Status: Acute (2) Acute hypokalemia: Code(s): E87.6 - Hypokalemia Status: Acute (3) Alcohol abuse: Code(s): F10.10 - Alcohol abuse, uncomplicated Status: Acute (4) Hyperbilirubinemia: Code(s): E80.6 - Other disorders of bilirubin metabolism Status: Acute Plan # acute alcohol pancreatitis continue IV resuscitation has ordered. Will continue NPO. Leukocytosis worsened. Will start imipenem cilastatin. Recheck CT abdomen to rule out necrosis. GI consultation. # mild transaminitis likely secondary to alcohol abuse -continue supportive care with IV fluids -Tyler criteria on admission 2 points -pain control p.r.n. Dilaudid 1 mg q 12 hours p.r.n. -IV fluids aggressive hydration continue normal saline 200 cc/hour -NPO for now for bowel rest. Will do trial of clear liquid which did not go well. Continue NPO for now -leukocytosis consistent with pancreatitis remains persistent # alcohol abuse -drinks 99% banana, high proof alcohol last 4-5 years -patient states he has no alcohol withdrawal history -will have [facility] protocol to monitor -multivitamin, thiamine, folic acid supplement -[employer] caretaker consult for alcohol rehab services # hypokalemia -secondary to alcohol abuse -potassium 2.3 giving 40 mEq IV potassium chloride x2 Aggressive potassium replacement as ordered # nicotine dependence -patient vapes daily -will give nicotine patch Diet: NPO for bowel rest DVT prophylaxis: Lovenox Code status: Full code Disposition: Likely home in 3-5 days 06/10/2022 interval history: patient with history of alcohol abuse presented with pancreatitis, patient lipase was 680 on 06/04, on 06/06 patient lipase had risen to 1173 patient continued to complain of abdominal pain patient was seen by GI recommended that patient clinical symptoms are worsening, and instructed to stop oral intake, started patient on PPN and IV pain medications and monitor, on 06/08 patient lipase levels were trending down to 985 his pain was little better, reduced IV diludid to to naz 8hrs, and added IV tylenol 1g q6 PRN, today patient lipase is stable today at 983, on 06/[address] scan of abdomen, concerning for acute necrotic pancreatitis today patient is seen by GI, patient pain is improving, patient on clear liquids, discussed will continue may advance his diet tomorrow. patient has a risk of DT, placed the patient on CIWA protocol and Ativan as needed, Will continue to monitor and further recommendation to follow. Subjective Date/time seen: 06/10/22 13:44 Interval history: He tried some popsicles yesterday and had felt worse since then. His feels bloated and hurting more. Nausea present no vomiting. Remains afebrile. 06/10/2022 interval history: patient with history of alcohol abuse presented with pancreatitis, patient lipase was 680 on 06/04, on 06/06 patient lipase had risen to 1173 patient continued to complain of abdominal pain patient was seen by GI recommended that patient clinical symptoms are worsening, and instructed to stop oral intake, started patient on PPN and IV pain medications and monitor, on 06/08 patient lipase levels were trending down to 985 his pain was little better, reduced IV diludid to to naz 8hrs, and added IV tylenol 1g q6 PRN, today patient lipase is stable today at 983, on 06/[address] scan of abdomen, concerning for acute necrotic pancreatitis today patient is seen by GI, patient pain is improving, patient on clear liquids, discussed will continue may advance his diet tomorrow. patient has a risk of DT, placed the patient on CIWA protocol and Ativan as needed, Will continue to monitor and further recommendation to follow. Review of Systems Review of Systems: All systems reviewed & are unremarkable except as n
[2022-06-10 14:20] VITALS: BP 132/78; PULSE 88; RESP 18; TEMP 36.4; O2SAT 99
[2022-06-10] MEDS: AMINO ACIDS 4.25%/D5W/LYTES/CA 2,000 ML 80 ML IV CONT (14:57)
[2022-06-10] MEDS: ONDANSETRON INJ 4 MG/2 ML VIAL IV PUSH (17:11)
[2022-06-10] MEDS: LORazepam INJ (*CRX) 2 MG/ML VIAL 1 MG IV PUSH (21:09)
[2022-06-10 22:07] VITALS: BP 131/77; PULSE 88; RESP 20; TEMP 36.9; O2SAT 98
[2022-06-11] MEDS: HYDROmorphone HCL INJ (*CRX) 1 MG/ML SYR IV PUSH ×3 (01:24→17:07)
[2022-06-11] MEDS: ONDANSETRON INJ 4 MG/2 ML VIAL IV PUSH (01:25)
[2022-06-11] MEDS: HYDROcodone/acetaminophen (*CRX) 5-325 MG TABLET 1 TAB PO ×3 (03:48→20:09)
[2022-06-11 05:26] LABS: Hematocrit 38.3 % (42.0-52.0); Hemoglobin 12.4 g/dL (14.0-18.0); Mean Corpuscular HGB Conc 32.4 g/dl (32-36); Mean Corpuscular Hemoglobin 33.4 pg (26-34); Mean Corpuscular Volume 103.2 fl (80-100); Mean Platelet Volume 10.7 fl (7.4-10.4); Platelet Count Result 579 k/mm3 (150-375); Red Blood Count 3.71 M/mm3 (4.6-6.20); Red Cell Distribution Width 15.1 % (11.5-14.5); White Blood Count 11.1 K/mm3 (4.5-10.0)
[2022-06-11 05:36] LABS: Alanine Aminotransferase 41 U/L (6-50); Albumin Level 3.8 g/dL (3.5-5.1); Alkaline Phosphatase 75 U/L (38-126); Anion Gap 6 mmol/L (8-16); Aspartate Amino Transferase 56 U/L (17-59); Bilirubin,Total 0.8 mg/dL (0.2-1.3); Blood Urea Nitrogen 8 mg/dL (9-20); Calcium 8.7 mg/dL (8.4-10.2); Carbon Dioxide 27 mmol/L (22-30); Chloride 101 mmol/L (98-107); Estimated CRCL calculation 223 ml/min; Estimated Glomerular Filt Rate > 60; Glucose 109 mg/dL (65-110); Lipase 974 U/L (23-300); Magnesium 2.3 mg/dL (1.6-2.3); Potassium 5.3 mmol/L (3.4-5.0); Sodium 134 mmol/L (137-145)
[2022-06-11 06:00] VITALS: BP 130/68; PULSE 86; RESP 18; TEMP 35.9; O2SAT 96
[2022-06-11] MEDS: CENTRAL LINE FLUSH 10 ML IV PUSH ×3 (06:32→20:50)
--- NOTE | 2022-06-11 07:20 | WPDGIPROGNO ---
Progress Note: A&P Assessment and Plan (1) Acute pancreatitis: Code(s): K85.90 - Acute pancreatitis without necrosis or infection, unspecified Status: Acute Assessment and Plan: As noted above, lipase is over 400. CT scan shows: Diffuse fatty infiltration of the liver present. The spleen, gallbladder, adrenals and kidneys are within normal limits. Extensive peripancreatic fluid and inflammatory changes similar to prior exam, consistent with acute pancreatitis. No pseudocyst evident. No gross pancreatic necrosis clearly identified. No evidence of aortic aneurysm.? No lymphadenopathy is seen. So far no significant improvement. He in fact feels a little more uncomfortable. I told that he may need parental element today herrera if his pancreatitis does not resolve in a few days. It is too soon however at this point to know that that would be necessary. 06/06/2022 lipase has increased. He obviously has a quite severe case of pancreatitis. He will need to be started on hyperalimentation. 06/07/2022 lipase is a bit lower 06/09/2022 lipase is in the 900s. BUN is 5 and creatinine 0.4, indicating is well hydrated. I am concerned about his lack of appetite and even interest in his taking sips of water. Will recheck CT scan. although he has necrotizing pancreatitis, I do not think he has infected necrosis given the consistent drop in his white blood count 06/10/2022 he is having less pain. He does have bowel sounds today. I think that he is finally turning the corner. The CT scan done yesterday shows: Persistent heterogeneous enhancement in the pancreatic head and new linear hypoenhancement in the pancreatic tail, both concerning for necrotizing pancreatitis. Increasing size and organization of multiple peripancreatic fluid collections, most consistent with acute necrotic collections. 03/11/2023 unfortunately, he is still not hungry and states he can only tolerate a few oz of liquids. We had thought about advancing his diet but he would like to hold off a day or so. (2) Acute hypokalemia: Code(s): E87.6 - Hypokalemia Status: Acute Assessment and Plan: No recent electrolyte abnormalities (3) Alcohol abuse: Code(s): F10.10 - Alcohol abuse, uncomplicated Status: Acute Assessment and Plan: He states he drinks at least 10 or 12 shots of 100 proof alcohol every day He insists that he is going to stop drinking completely. I did explain him that once a person has had pancreatitis. It does not take that much alcohol for to come back and that in some individuals each episode is worse any can be fatal. 06/10/2022 I reminded him that each case of pancreatitis can be worse than the 1 prior and that it will not take as much to bring on an attack of pancreatitis once a person has had 1. He states that he is resolution in his plan to stay away from alcohol completely (4) Hyperbilirubinemia: Code(s): E80.6 - Other disorders of bilirubin metabolism Status: Acute Assessment and Plan: Bilirubin was over 4 but now down to 2.0. He denies any prior episodes of jaundice. His hearing, which was very dark to 3 days ago has come back to almost normal color. I observed urine in his urine now and was slightly orangish yellow 06/04/2022 bilirubin is a little lower, 1.7 06/10/2022 today bilirubin is 0.7, back to normal (5) Leukocytosis: Code(s): D72.829 - Elevated white blood cell count, unspecified Status: Acute Assessment and Plan: White blood count continues to decrease, just over 12,000 now 06/11- continues to decrease, now down to 11,100. (6) Anemia: Code(s): D64.9 - Anemia, unspecified Status: Acute Assessment and Plan: his hemoglobin has dropped from 12-11. I do not think however at this point we need to get overly concerned about that. Will watch for any signs of bleeding of course. 06/11/2022 hemoglobin is stable and has increased a bit to 1
[2022-06-11] MEDS: FOLIC ACID 1 MG/0.2 ML INJ IV PUSH (08:07)
[2022-06-11] MEDS: NICOTINE (*PBKC) 14 MG PATCH 1 PATCH TRANSDERM (08:08)
[2022-06-11] MEDS: SODIUM ZIRCONIUM CYCLOSILICATE 10 GM POWD.PACK PO (08:08)
[2022-06-11] MEDS: PANTOPRAZOLE SODIUM IV 40 MG VIAL IV PUSH (08:08)
[2022-06-11] MEDS: ENOXAPARIN 40 MG/0.4 ML SYRINGE SUB-Q (08:08)
[2022-06-11] MEDS: THIAMINE HCL 200 MG/2 ML VIAL 100 MG IV PUSH (08:08)
[2022-06-11] MEDS: SODIUM CHLORIDE 0.9% IV 1,000 ML 100 ML IV CONT ×2 (09:35→21:31)
--- NOTE | 2022-06-11 09:36 | PM.IMPN ---
Progress Note: A&P Assessment and Plan (1) Acute pancreatitis: Code(s): K85.90 - Acute pancreatitis without necrosis or infection, unspecified Status: Acute (2) Acute hypokalemia: Code(s): E87.6 - Hypokalemia Status: Acute (3) Alcohol abuse: Code(s): F10.10 - Alcohol abuse, uncomplicated Status: Acute (4) Hyperbilirubinemia: Code(s): E80.6 - Other disorders of bilirubin metabolism Status: Acute Plan # acute alcohol pancreatitis continue IV resuscitation has ordered. Will continue NPO. Leukocytosis worsened. Will start imipenem cilastatin. Recheck CT abdomen to rule out necrosis. GI consultation. # mild transaminitis likely secondary to alcohol abuse -continue supportive care with IV fluids -Tyler criteria on admission 2 points -pain control p.r.n. Dilaudid 1 mg q 12 hours p.r.n. -IV fluids aggressive hydration continue normal saline 200 cc/hour -NPO for now for bowel rest. Will do trial of clear liquid which did not go well. Continue NPO for now -leukocytosis consistent with pancreatitis remains persistent # alcohol abuse -drinks 99% banana, high proof alcohol last 4-5 years -patient states he has no alcohol withdrawal history -will have [facility] protocol to monitor -multivitamin, thiamine, folic acid supplement -daytime caregiver consult for alcohol rehab services # hypokalemia -secondary to alcohol abuse -potassium 2.3 giving 40 mEq IV potassium chloride x2 Aggressive potassium replacement as ordered # nicotine dependence -patient vapes daily -will give nicotine patch Diet: NPO for bowel rest DVT prophylaxis: Lovenox Code status: Full code Disposition: Likely home in 3-5 days 06/11/2022 interval history: patient with history of alcohol abuse presented with pancreatitis, patient lipase was 680 on 06/04, on 06/06 patient lipase had risen to 1173 patient continued to complain of abdominal pain patient was seen by GI recommended that patient clinical symptoms are worsening, and instructed to stop oral intake, started patient on PPN and IV pain medications and monitor, on 06/08 patient lipase levels were trending down to 985 his pain was little better, reduced IV diludid to to naz 8hrs, and added IV tylenol 1g q6 PRN, on 06/09 patient lipase is stable at 983, on 06/[address] scan of abdomen, concerning for acute necrotic pancreatitis patient was seen by GI, patient pain is improving, today patient lipase is 973 patient on clear liquids, discussed will continue may advance his diet however does not want advance his diet, will discuss tomorrow. patient is now out of DT risk, will continue CIWA protocol and Ativan as needed, Will continue to monitor and further recommendation to follow. will have PT work with patient. Subjective Date/time seen: 06/11/22 09:36 Interval history: He tried some popsicles yesterday and had felt worse since then. His feels bloated and hurting more. Nausea present no vomiting. Remains afebrile. 06/11/2022 interval history: patient with history of alcohol abuse presented with pancreatitis, patient lipase was 680 on 06/04, on 06/06 patient lipase had risen to 1173 patient continued to complain of abdominal pain patient was seen by GI recommended that patient clinical symptoms are worsening, and instructed to stop oral intake, started patient on PPN and IV pain medications and monitor, on 06/08 patient lipase levels were trending down to 985 his pain was little better, reduced IV diludid to to naz 8hrs, and added IV tylenol 1g q6 PRN, on 06/09 patient lipase is stable at 983, on 06/[address] scan of abdomen, concerning for acute necrotic pancreatitis patient was seen by GI, patient pain is improving, today patient lipase is 973 patient on clear liquids, discussed will continue may advance his diet however does not want advance his diet, will discuss tomorrow. patient is now out of DT risk, will continue CIWA protocol and A
[2022-06-11 14:41] VITALS: BP 128/71; PULSE 88; RESP 18; TEMP 36.7; O2SAT 98
[2022-06-11] MEDS: AMINO ACIDS 4.25%/D5W/LYTES/CA 2,000 ML 80 ML IV CONT (14:46)
[2022-06-11 19:29] VITALS: BP 122/60; PULSE 93; RESP 18; TEMP 36.6; O2SAT 96
[2022-06-11] MEDS: LORazepam INJ (*CRX) 2 MG/ML VIAL 1 MG IV PUSH (20:08)
[2022-06-12] MEDS: HYDROmorphone HCL INJ (*CRX) 1 MG/ML SYR IV PUSH ×2 (01:58→10:01)
[2022-06-12 03:23] VITALS: BP 121/64; PULSE 79; RESP 17; TEMP 36.1; O2SAT 94
[2022-06-12] MEDS: HYDROcodone/acetaminophen (*CRX) 5-325 MG TABLET 1 TAB PO ×3 (03:37→21:52)
[2022-06-12] MEDS: LORazepam INJ (*CRX) 2 MG/ML VIAL 1 MG IV PUSH ×2 (03:38→21:49)
--- NOTE | 2022-06-12 03:42 | PC.NURSE ---
Patient states he has left side abdominal pain at all times. Pt in bed since start of shift at 1900.Given norco, dilaudid and ativan. IVF and TPN continues per DL PICC to left upper arm. Antibiotics per order. Tolerated cl liquid
[2022-06-12] MEDS: CENTRAL LINE FLUSH 10 ML IV PUSH ×3 (06:08→23:12)
[2022-06-12] MEDS: THIAMINE HCL 200 MG/2 ML VIAL 100 MG IV PUSH (08:51)
[2022-06-12] MEDS: ENOXAPARIN 40 MG/0.4 ML SYRINGE SUB-Q (08:51)
[2022-06-12] MEDS: NICOTINE (*PBKC) 14 MG PATCH 1 PATCH TRANSDERM (08:53)
[2022-06-12] MEDS: FOLIC ACID 1 MG/0.2 ML INJ IV PUSH (08:53)
[2022-06-12] MEDS: PANTOPRAZOLE SODIUM IV 40 MG VIAL IV PUSH (08:54)
[2022-06-12 11:18] LABS: Basophils Absolute Auto 0.2 K/mm3 (0.0-0.1); Basophils Percent Auto 1.3 % (0.2-1.2); Eosinophils Absolute Auto 0.4 K/mm3 (0-0.3); Eosinophils Percent Auto 3.1 % (0-4.4); Hematocrit 42.2 % (42.0-52.0); Hemoglobin 13.7 g/dL (14.0-18.0); Immature Granulocyte Absolute 0.32 K/mm3 (0.00-0.031); Immature Granulocyte Percent A 2.7 % (0-0.5); Lymphocytes Absolute Auto 2.86 K/mm3 (0.9-3.2); Lymphocytes Percent Auto 24.1 % (18.3-44.2); Mean Corpuscular HGB Conc 32.5 g/dl (32-36); Mean Corpuscular Volume 101.7 fl (80-100); Mean Platelet Volume 10.4 fl (7.4-10.4); Monocytes Absolute Auto 0.9 K/mm3 (0.1-0.6); Monocytes Percent Auto 7.5 % (2.6-8.5); Neutrophils Absolute Auto 7.3 K/mm3 (1.3-6.7); Neutrophils Percent Auto 61.3 % (45.5-73.1); Platelet Count Result 620 k/mm3 (150-375); Red Blood Count 4.15 M/mm3 (4.6-6.20); Red Cell Distribution Width 14.6 % (11.5-14.5); White Blood Count 11.9 K/mm3 (4.5-10.0)
[2022-06-12 11:26] LABS: Lipase 878 U/L (23-300)
[2022-06-12] MEDS: SODIUM CHLORIDE 0.9% IV 1,000 ML 100 ML IV CONT ×2 (12:29→21:48)
--- NOTE | 2022-06-12 12:51 | PM.IMPN ---
Progress Note: A&P Assessment and Plan (1) Acute pancreatitis: Code(s): K85.90 - Acute pancreatitis without necrosis or infection, unspecified Status: Acute (2) Acute hypokalemia: Code(s): E87.6 - Hypokalemia Status: Acute (3) Alcohol abuse: Code(s): F10.10 - Alcohol abuse, uncomplicated Status: Acute (4) Hyperbilirubinemia: Code(s): E80.6 - Other disorders of bilirubin metabolism Status: Acute Plan # acute alcohol pancreatitis continue IV resuscitation has ordered. Will continue NPO. Leukocytosis worsened. Will start imipenem cilastatin. Recheck CT abdomen to rule out necrosis. GI consultation. # mild transaminitis likely secondary to alcohol abuse -continue supportive care with IV fluids -Tyler criteria on admission 2 points -pain control p.r.n. Dilaudid 1 mg q 12 hours p.r.n. -IV fluids aggressive hydration continue normal saline 200 cc/hour -NPO for now for bowel rest. Will do trial of clear liquid which did not go well. Continue NPO for now -leukocytosis consistent with pancreatitis remains persistent # alcohol abuse -drinks 99% banana, high proof alcohol last 4-5 years -patient states he has no alcohol withdrawal history -will have [facility] protocol to monitor -multivitamin, thiamine, folic acid supplement -care technician consult for alcohol rehab services # hypokalemia -secondary to alcohol abuse -potassium 2.3 giving 40 mEq IV potassium chloride x2 Aggressive potassium replacement as ordered # nicotine dependence -patient vapes daily -will give nicotine patch Diet: NPO for bowel rest DVT prophylaxis: Lovenox Code status: Full code Disposition: Likely home in 3-5 days 06/12/2022 interval history: patient with history of alcohol abuse presented with pancreatitis, patient lipase was 680 on 06/04, on 06/06 patient lipase had risen to 1173 patient continued to complain of abdominal pain patient was seen by GI recommended that patient clinical symptoms are worsening, and instructed to stop oral intake, started patient on PPN and IV pain medications and monitor, on 06/08 patient lipase levels were trending down to 985 his pain was little better, reduced IV diludid to to naz 8hrs, and added IV tylenol 1g q6 PRN, on 06/09 patient lipase is stable at 983, on 06/[address] scan of abdomen, concerning for acute necrotic pancreatitis patient was seen by GI, patient pain is improving, on 06/10 patient lipase was 973 and today lipase has trended down to 988, patient is on clear liquids, discussed will discuss with GI may advance his diet however patient does not want advance his diet, will stop IV diluded, patient is now out of DT risk, will continue CIWA protocol and Ativan as needed, Will continue to monitor and further recommendation to follow. will have PT work with patient. Subjective Date/time seen: 06/12/22 12:51 Interval history: He tried some popsicles yesterday and had felt worse since then. His feels bloated and hurting more. Nausea present no vomiting. Remains afebrile. 06/12/2022 interval history: patient with history of alcohol abuse presented with pancreatitis, patient lipase was 680 on 06/04, on 06/06 patient lipase had risen to 1173 patient continued to complain of abdominal pain patient was seen by GI recommended that patient clinical symptoms are worsening, and instructed to stop oral intake, started patient on PPN and IV pain medications and monitor, on 06/08 patient lipase levels were trending down to 985 his pain was little better, reduced IV diludid to to naz 8hrs, and added IV tylenol 1g q6 PRN, on 06/09 patient lipase is stable at 983, on 06/[address] scan of abdomen, concerning for acute necrotic pancreatitis patient was seen by GI, patient pain is improving, on 06/10 patient lipase was 973 and today lipase has trended down to 988, patient is on clear liquids, discussed will discuss with GI may advance his diet how
--- NOTE | 2022-06-12 13:38 | WPDGIPROGNO ---
Progress Note: A&P Assessment and Plan (1) Acute pancreatitis: Code(s): K85.90 - Acute pancreatitis without necrosis or infection, unspecified Status: Acute Assessment and Plan: As noted above, lipase is over 400. CT scan shows: Diffuse fatty infiltration of the liver present. The spleen, gallbladder, adrenals and kidneys are within normal limits. Extensive peripancreatic fluid and inflammatory changes similar to prior exam, consistent with acute pancreatitis. No pseudocyst evident. No gross pancreatic necrosis clearly identified. No evidence of aortic aneurysm.? No lymphadenopathy is seen. So far no significant improvement. He in fact feels a little more uncomfortable. I told that he may need parental element today herrera if his pancreatitis does not resolve in a few days. It is too soon however at this point to know that that would be necessary. 06/06/2022 lipase has increased. He obviously has a quite severe case of pancreatitis. He will need to be started on hyperalimentation. 06/07/2022 lipase is a bit lower 06/09/2022 lipase is in the 900s. BUN is 5 and creatinine 0.4, indicating is well hydrated. I am concerned about his lack of appetite and even interest in his taking sips of water. Will recheck CT scan. although he has necrotizing pancreatitis, I do not think he has infected necrosis given the consistent drop in his white blood count 06/10/2022 he is having less pain. He does have bowel sounds today. I think that he is finally turning the corner. The CT scan done yesterday shows: Persistent heterogeneous enhancement in the pancreatic head and new linear hypoenhancement in the pancreatic tail, both concerning for necrotizing pancreatitis. Increasing size and organization of multiple peripancreatic fluid collections, most consistent with acute necrotic collections. 03/11/2023 unfortunately, he is still not hungry and states he can only tolerate a few oz of liquids. We had thought about advancing his diet but he would like to hold off a day or so. 06/12/2022 he thinks he is a little better every day. Pain still comes in waves, sudden shock waves better intense but in between he is doing much better. He still requesting pain medication every 4 hours or so. I told that we want to try him on a low-fat diet even though he is not hungry. I explained him that he needs some nutrients to prevent mucosal atrophy etc. will start pancreatic enzyme supplements as well (2) Acute hypokalemia: Code(s): E87.6 - Hypokalemia Status: Acute Assessment and Plan: No recent electrolyte abnormalities (3) Alcohol abuse: Code(s): F10.10 - Alcohol abuse, uncomplicated Status: Acute Assessment and Plan: He states he drinks at least 10 or 12 shots of 100 proof alcohol every day He insists that he is going to stop drinking completely. I did explain him that once a person has had pancreatitis. It does not take that much alcohol for to come back and that in some individuals each episode is worse any can be fatal. 06/10/2022 I reminded him that each case of pancreatitis can be worse than the 1 prior and that it will not take as much to bring on an attack of pancreatitis once a person has had 1. He states that he is resolution in his plan to stay away from alcohol completely (4) Hyperbilirubinemia: Code(s): E80.6 - Other disorders of bilirubin metabolism Status: Acute Assessment and Plan: Bilirubin was over 4 but now down to 2.0. He denies any prior episodes of jaundice. His hearing, which was very dark to 3 days ago has come back to almost normal color. I observed urine in his urine now and was slightly orangish yellow 06/04/2022 bilirubin is a little lower, 1.7 06/10/2022 today bilirubin is 0.7, back to normal (5) Leukocytosis: Code(s): D72.829 - Elevated white blood cell count, unspecified Status: Acute Assessment and Plan: White blood count continues to de
[2022-06-12] MEDS: AMINO ACIDS 4.25%/D5W/LYTES/CA 2,000 ML 80 ML IV CONT (14:46)
[2022-06-12 15:10] VITALS: BP 144/72; PULSE 84; RESP 16; TEMP 35.7; O2SAT 98
[2022-06-12] MEDS: LIPASE/AMYLASE/PROTEASE 12,000 UNITS CAP 2 CAP PO (17:26)
[2022-06-12 18:40] VITALS: BP 138/76; PULSE 84; RESP 16; TEMP 35.8; O2SAT 97
[2022-06-12 20:57] VITALS: BP 116/67; PULSE 84; RESP 18; TEMP 36.3; O2SAT 98
[2022-06-13] MEDS: HYDROcodone/acetaminophen (*CRX) 5-325 MG TABLET 1 TAB PO ×4 (02:05→20:31)
[2022-06-13 05:05] VITALS: BP 128/70; PULSE 79; RESP 18; TEMP 36.8; O2SAT 99
[2022-06-13] MEDS: CENTRAL LINE FLUSH 10 ML IV PUSH ×3 (06:00→22:00)
[2022-06-13 07:01] LABS: Hematocrit 40.3 % (42.0-52.0); Hemoglobin 13.4 g/dL (14.0-18.0); Mean Corpuscular HGB Conc 33.3 g/dl (32-36); Mean Corpuscular Hemoglobin 33.9 pg (26-34); Mean Platelet Volume 10.7 fl (7.4-10.4); Platelet Count Result 577 k/mm3 (150-375); Red Blood Count 3.95 M/mm3 (4.6-6.20); Red Cell Distribution Width 14.4 % (11.5-14.5); White Blood Count 11.2 K/mm3 (4.5-10.0)
[2022-06-13] MEDS: LIPASE/AMYLASE/PROTEASE 12,000 UNITS CAP 2 CAP PO ×3 (08:16→17:46)
[2022-06-13] MEDS: ENOXAPARIN 40 MG/0.4 ML SYRINGE SUB-Q (08:17)
[2022-06-13] MEDS: PANTOPRAZOLE SODIUM IV 40 MG VIAL IV PUSH (08:19)
[2022-06-13] MEDS: THIAMINE HCL 200 MG/2 ML VIAL 100 MG IV PUSH (08:19)
[2022-06-13 08:34] LABS: Alanine Aminotransferase 49 U/L (6-50); Albumin Level 4.1 g/dL (3.5-5.1); Alkaline Phosphatase 79 U/L (38-126); Anion Gap 7 mmol/L (8-16); Aspartate Amino Transferase 68 U/L (17-59); Bilirubin,Total 0.7 mg/dL (0.2-1.3); Blood Urea Nitrogen 10 mg/dL (9-20); Calcium 9.3 mg/dL (8.4-10.2); Carbon Dioxide 26 mmol/L (22-30); Chloride 104 mmol/L (98-107); Estimated CRCL calculation 188 ml/min; Estimated Glomerular Filt Rate > 60; Glucose 118 mg/dL (65-110); Magnesium 2.4 mg/dL (1.6-2.3); Potassium 4.3 mmol/L (3.4-5.0); Sodium 137 mmol/L (137-145)
[2022-06-13 09:24] LABS: Lipase 1009 U/L (23-300)
[2022-06-13] MEDS: FOLIC ACID 1 MG/0.2 ML INJ IV PUSH (09:26)
[2022-06-13] MEDS: SODIUM CHLORIDE 0.9% IV 1,000 ML 100 ML IV CONT ×2 (10:26→20:35)
[2022-06-13 10:46] VITALS: BMI 31.1
--- NOTE | 2022-06-13 11:00 | WPDGIPROGNO ---
Progress Note: A&P Assessment and Plan (1) Acute pancreatitis: Code(s): K85.90 - Acute pancreatitis without necrosis or infection, unspecified Status: Acute Assessment and Plan: As noted above, lipase is over 400. CT scan shows: Diffuse fatty infiltration of the liver present. The spleen, gallbladder, adrenals and kidneys are within normal limits. Extensive peripancreatic fluid and inflammatory changes similar to prior exam, consistent with acute pancreatitis. No pseudocyst evident. No gross pancreatic necrosis clearly identified. No evidence of aortic aneurysm.? No lymphadenopathy is seen. So far no significant improvement. He in fact feels a little more uncomfortable. I told that he may need parental element today herrera if his pancreatitis does not resolve in a few days. It is too soon however at this point to know that that would be necessary. 06/06/2022 lipase has increased. He obviously has a quite severe case of pancreatitis. He will need to be started on hyperalimentation. 06/07/2022 lipase is a bit lower 06/09/2022 lipase is in the 900s. BUN is 5 and creatinine 0.4, indicating is well hydrated. I am concerned about his lack of appetite and even interest in his taking sips of water. Will recheck CT scan. although he has necrotizing pancreatitis, I do not think he has infected necrosis given the consistent drop in his white blood count 06/10/2022 he is having less pain. He does have bowel sounds today. I think that he is finally turning the corner. The CT scan done yesterday shows: Persistent heterogeneous enhancement in the pancreatic head and new linear hypoenhancement in the pancreatic tail, both concerning for necrotizing pancreatitis. Increasing size and organization of multiple peripancreatic fluid collections, most consistent with acute necrotic collections. 03/11/2023 unfortunately, he is still not hungry and states he can only tolerate a few oz of liquids. We had thought about advancing his diet but he would like to hold off a day or so. 06/12/2022 he thinks he is a little better every day. Pain still comes in waves, sudden shock waves better intense but in between he is doing much better. He still requesting pain medication every 4 hours or so. I told that we want to try him on a low-fat diet even though he is not hungry. I explained him that he needs some nutrients to prevent mucosal atrophy etc. will start pancreatic enzyme supplements as well 06/13/2022 he ate a low-fat diet yesterday without much difficulty. He was a little uncomfortable afterwards. Today the lipase has increased slightly. I would like to continue this low-fat diet for now, I instructed him to pick and choose, not trying to eat the entire meal because early refeeding has been shown to be beneficial in acute pancreatitis versus total gut rest. No increase in white blood count which is encouraging. (2) Acute hypokalemia: Code(s): E87.6 - Hypokalemia Status: Acute Assessment and Plan: No recent electrolyte abnormalities (3) Alcohol abuse: Code(s): F10.10 - Alcohol abuse, uncomplicated Status: Acute Assessment and Plan: He states he drinks at least 10 or 12 shots of 100 proof alcohol every day He insists that he is going to stop drinking completely. I did explain him that once a person has had pancreatitis. It does not take that much alcohol for to come back and that in some individuals each episode is worse any can be fatal. 06/10/2022 I reminded him that each case of pancreatitis can be worse than the 1 prior and that it will not take as much to bring on an attack of pancreatitis once a person has had 1. He states that he is resolution in his plan to stay away from alcohol completely (4) Hyperbilirubinemia: Code(s): E80.6 - Other disorders of bilirubin metabolism Status: Acute Assessment and Plan: Bilirubin was over 4 but now down to 2.0. He denies any prior episode
--- NOTE | 2022-06-13 11:34 | PM.IMPN ---
Progress Note: A&P Assessment and Plan (1) Acute pancreatitis: Code(s): K85.90 - Acute pancreatitis without necrosis or infection, unspecified Status: Acute (2) Acute hypokalemia: Code(s): E87.6 - Hypokalemia Status: Acute (3) Alcohol abuse: Code(s): F10.10 - Alcohol abuse, uncomplicated Status: Acute (4) Hyperbilirubinemia: Code(s): E80.6 - Other disorders of bilirubin metabolism Status: Acute Plan # acute alcohol pancreatitis continue IV resuscitation has ordered. Will continue NPO. Leukocytosis worsened. Will start imipenem cilastatin. Recheck CT abdomen to rule out necrosis. GI consultation. # mild transaminitis likely secondary to alcohol abuse -continue supportive care with IV fluids -Tyler criteria on admission 2 points -pain control p.r.n. Dilaudid 1 mg q 12 hours p.r.n. -IV fluids aggressive hydration continue normal saline 200 cc/hour -NPO for now for bowel rest. Will do trial of clear liquid which did not go well. Continue NPO for now -leukocytosis consistent with pancreatitis remains persistent # alcohol abuse -drinks 99% banana, high proof alcohol last 4-5 years -patient states he has no alcohol withdrawal history -will have [facility] protocol to monitor -multivitamin, thiamine, folic acid supplement -direct support professional caregiver consult for alcohol rehab services # hypokalemia -secondary to alcohol abuse -potassium 2.3 giving 40 mEq IV potassium chloride x2 Aggressive potassium replacement as ordered # nicotine dependence -patient vapes daily -will give nicotine patch Diet: NPO for bowel rest DVT prophylaxis: Lovenox Code status: Full code Disposition: Likely home in 3-5 days 06/13/2022 interval history: patient with history of alcohol abuse presented with pancreatitis, patient lipase was 680 on 06/04, on 06/06 patient lipase had risen to 1173 patient continued to complain of abdominal pain patient was seen by GI recommended that patient clinical symptoms are worsening, and instructed to stop oral intake, started patient on PPN and IV pain medications and monitor, on 06/08 patient lipase levels were trending down to 985 his pain was little better, reduced IV diludid to to naz 8hrs, and added IV tylenol 1g q6 PRN, on 06/09 patient lipase is stable at 983, on 06/[address] scan of abdomen, concerning for acute necrotic pancreatitis patient was seen by GI, patient pain is improving, on 06/10 patient lipase was 973 and on 06/12 lipase had trended down to 988, patient was on clear liquids, GI advanced his diet advance his diet low fat diet, first patient was hesitant to advance diet, but he started to eat low fat diet, on 06/12 stopped IV diluded, today patient lipase is slightly increased to 1009, seen by GI continued current low fat diet, added Creon to regiment, today his pain is better, will CPM, patient is now out of DT risk, will continue CIWA protocol and Ativan as needed, Will continue to monitor and further recommendation to follow. will have PT work with patient. Subjective Date/time seen: 06/13/22 11:34 Interval history: He tried some popsicles yesterday and had felt worse since then. His feels bloated and hurting more. Nausea present no vomiting. Remains afebrile. 06/13/2022 interval history: patient with history of alcohol abuse presented with pancreatitis, patient lipase was 680 on 06/04, on 06/06 patient lipase had risen to 1173 patient continued to complain of abdominal pain patient was seen by GI recommended that patient clinical symptoms are worsening, and instructed to stop oral intake, started patient on PPN and IV pain medications and monitor, on 06/08 patient lipase levels were trending down to 985 his pain was little better, reduced IV diludid to to naz 8hrs, and added IV tylenol 1g q6 PRN, on 06/09 patient lipase is stable at 983, on 06/[address] scan of abdomen, concerning for acute necrotic pancreatitis patient was se
[2022-06-13 14:00] VITALS: BP 145/70; PULSE 85; RESP 18; TEMP 36.9; O2SAT 98
[2022-06-13] MEDS: AMINO ACIDS 4.25%/D5W/LYTES/CA 2,000 ML 80 ML IV CONT (14:30)
[2022-06-13 20:00] VITALS: BP 140/64; PULSE 83; RESP 16; TEMP 36.9; O2SAT 97
[2022-06-13] MEDS: NICOTINE (*PBKC) 14 MG PATCH 1 PATCH TRANSDERM (20:30)
[2022-06-13] MEDS: LORazepam INJ (*CRX) 2 MG/ML VIAL 1 MG IV PUSH (20:33)
[2022-06-14] MEDS: HYDROcodone/acetaminophen (*CRX) 5-325 MG TABLET 1 TAB PO ×4 (03:40→21:29)
[2022-06-14 04:00] VITALS: BP 135/61; PULSE 75; RESP 16; TEMP 36.8; O2SAT 98
[2022-06-14] MEDS: CENTRAL LINE FLUSH 10 ML IV PUSH ×3 (05:12→21:24)
[2022-06-14 05:32] LABS: Hemoglobin 13.2 g/dL (14.0-18.0); Mean Corpuscular Hemoglobin 33.6 pg (26-34); Mean Corpuscular Volume 101.8 fl (80-100); Mean Platelet Volume 10.6 fl (7.4-10.4); Platelet Count Result 509 k/mm3 (150-375); Red Blood Count 3.93 M/mm3 (4.6-6.20); Red Cell Distribution Width 14.4 % (11.5-14.5); White Blood Count 9.6 K/mm3 (4.5-10.0)
[2022-06-14 05:41] LABS: Alanine Aminotransferase 59 U/L (6-50); Albumin Level 4.2 g/dL (3.5-5.1); Alkaline Phosphatase 75 U/L (38-126); Anion Gap 8 mmol/L (8-16); Aspartate Amino Transferase 64 U/L (17-59); Bilirubin,Total 0.7 mg/dL (0.2-1.3); Blood Urea Nitrogen 12 mg/dL (9-20); Calcium 9.1 mg/dL (8.4-10.2); Carbon Dioxide 25 mmol/L (22-30); Chloride 104 mmol/L (98-107); Estimated CRCL calculation 188 ml/min; Estimated Glomerular Filt Rate > 60; Glucose 114 mg/dL (65-110); Lipase 1423 U/L (23-300); Magnesium 2.2 mg/dL (1.6-2.3); Potassium 4.4 mmol/L (3.4-5.0); Sodium 137 mmol/L (137-145)
[2022-06-14] MEDS: SODIUM CHLORIDE 0.9% IV 1,000 ML 100 ML IV CONT (07:57)
[2022-06-14] MEDS: PANTOPRAZOLE SODIUM IV 40 MG VIAL IV PUSH (08:03)
[2022-06-14] MEDS: ENOXAPARIN 40 MG/0.4 ML SYRINGE SUB-Q (08:04)
[2022-06-14] MEDS: THIAMINE HCL 200 MG/2 ML VIAL 100 MG IV PUSH (08:04)
[2022-06-14] MEDS: LIPASE/AMYLASE/PROTEASE 12,000 UNITS CAP 2 CAP PO ×3 (08:04→16:58)
[2022-06-14] MEDS: FOLIC ACID 1 MG/0.2 ML INJ IV PUSH (08:04)
--- NOTE | 2022-06-14 10:29 | PM.IMPN ---
Progress Note: A&P Assessment and Plan (1) Acute pancreatitis: Code(s): K85.90 - Acute pancreatitis without necrosis or infection, unspecified Status: Acute (2) Acute hypokalemia: Code(s): E87.6 - Hypokalemia Status: Acute (3) Alcohol abuse: Code(s): F10.10 - Alcohol abuse, uncomplicated Status: Acute (4) Hyperbilirubinemia: Code(s): E80.6 - Other disorders of bilirubin metabolism Status: Acute Plan # acute necrotizing alcohol pancreatitis continue IV resuscitation has ordered. Leukocytosis worsened. Started on imipenem cilastatin potentially could switch to Zosyn since 06/10/2022. Recheck CT abdomen with necrotic pancreatitis. GI consultation. Lipase level slightly bumped up since oral diet is started. Clinically improved. Will continue to monitor Also Creon # mild transaminitis likely secondary to alcohol abuse -continue supportive care with IV fluids -Tyler criteria on admission 2 points -pain control p.r.n. Dilaudid 1 mg q 12 hours p.r.n. -IV fluids aggressive hydration continue normal saline 200 cc/hour will stop fluids today Start with NPO was placed on TPN eventually was started on diet. Tolerating low-fat diet. Will stop TPN and IV fluid today -leukocytosis consistent with pancreatitis resolved today # alcohol abuse -drinks 99% banana, high proof alcohol last 4-5 years -patient states he has no alcohol withdrawal history -will have [facility] protocol to monitor -multivitamin, thiamine, folic acid supplement -child care coordinator consult for alcohol rehab services # hypokalemia -secondary to alcohol abuse -potassium 2.3 giving 40 mEq IV potassium chloride x2 Aggressive potassium replacement as ordered # nicotine dependence -patient vapes daily -will give nicotine patch Diet: NPO for bowel rest DVT prophylaxis: Lovenox Code status: Full code Disposition: Likely home in 3-5 days Subjective Date/time seen: 06/14/22 10:29 Interval history: He tried some popsicles yesterday and had felt worse since then. His feels bloated and hurting more. Nausea present no vomiting. Remains afebrile. 06/13/2022 interval history: patient with history of alcohol abuse presented with pancreatitis, patient lipase was 680 on 06/04, on 06/06 patient lipase had risen to 1173 patient continued to complain of abdominal pain patient was seen by GI recommended that patient clinical symptoms are worsening, and instructed to stop oral intake, started patient on PPN and IV pain medications and monitor, on 06/08 patient lipase levels were trending down to 985 his pain was little better, reduced IV diludid to to naz 8hrs, and added IV tylenol 1g q6 PRN, on 06/09 patient lipase is stable at 983, on 06/[address] scan of abdomen, concerning for acute necrotic pancreatitis patient was seen by GI, patient pain is improving, on 06/10 patient lipase was 973 and on 06/12 lipase had trended down to 988, patient was on clear liquids, GI advanced his diet advance his diet low fat diet, first patient was hesitant to advance diet, but he started to eat low fat diet, on 06/12 stopped IV diluded, today patient lipase is slightly increased to 1009, seen by GI continued current low fat diet, added Creon to regiment, today his pain is better, will CPM, patient is now out of DT risk, will continue CIWA protocol and Ativan as needed, Will continue to monitor and further recommendation to follow. will have PT work with patient. 06/14/2021 the 3: Diet was advanced to low-fat diet which he tolerated well. No abdominal pain nausea vomiting. He is on TPN. Labs were reviewed. Discussed with staff. Review of Systems Review of Systems: All systems reviewed & are unremarkable except as noted in HPI and below Exam Narrative: moderately obese Patient is comfortable, NAD HEENT: eyes are clear and none icteric LUNGS: normal respiratory effort ABD: obese distended nontender no organomega
[2022-06-14 14:00] VITALS: BP 146/78; PULSE 89; RESP 18; TEMP 36.3; O2SAT 99
--- NOTE | 2022-06-14 15:02 | WPDGIPROGNO ---
Progress Note: A&P Assessment and Plan (1) Acute pancreatitis: Code(s): K85.90 - Acute pancreatitis without necrosis or infection, unspecified Status: Acute Assessment and Plan: doing much better and tolerating diet no pain probably home tomorrow stop alcohol use (2) Alcohol abuse: Code(s): F10.10 - Alcohol abuse, uncomplicated Status: Acute (3) Leukocytosis: Code(s): D72.829 - Elevated white blood cell count, unspecified Status: Acute Assessment and Plan: resolved probably from pancreatitis (4) Elevated transaminase level: Code(s): R74.01 - Elevation of levels of liver transaminase levels Status: Acute Assessment and Plan: normal bili now mild elevated transaminases, stable (5) Acute hypokalemia: Code(s): E87.6 - Hypokalemia Status: Acute Assessment and Plan: resolved and he is eating now Subjective Date/time seen: 06/14/22 15:02 Interval history: no more pain or nausea, tolerating low fat diet, feeling better Review of Systems Review of Systems: All systems reviewed & are unremarkable except as noted in HPI and below Exam Const: General: comfortable and no acute distress HENMT: Face/Nose/Sinus: Normal nares present Eyes: General: appearance normal, both eyes and all related structures Neck: Neck: no JVD Resp: Auscultation: clear to auscultation bilaterally Cardio: Rate: regular rate Rhythm: regular rhythm GI: Inspection: non-distended GI Palp: Yes Soft to palpation, No Tenderness to palpation present (GI) and No Guarding due to palpation present (GI) Skin: General skin exam: normal color Neuro: General: gait normal Speech: normal speech Extrem: General: normal to inspection Psych: Mental Status: mental status grossly normal Objective Data Vital Signs Vital Signs: Vital Signs - 24 hr 06/13/22 20:00 06/14/22 04:00 06/14/22 08:00 Temperature 98.5 F 98.2 F Pulse Rate 83 75 Respiratory Rate 16 16 Blood Pressure 140/64 135/61 Pulse Oximetry 97 98 Oxygen Delivery Room Air Intake/Output Intake/Output: Intake & Output 06/11/22 06/12/22 06/13/22 06/14/22 23:59 23:59 23:59 23:59 Intake Total 5790 8070 7536 2090 Output Total 800 300 Balance 4990 8099 5896 2089 Meds/Results Medications: Active Medications Generic Name Dose Route Start Last Admin Trade Name Freq PRN Reason Stop Dose Admin Acetaminophen 650 mg 06/07/22 16:55 06/07/22 23:21 Acetaminophen 325 Mg Tablet PO 650 mg Q6H PRN Administration Mild Pain (1-3) or Fever Hydrocodone Bitart/Acetaminophen 1 tab 06/04/22 15:40 06/14/22 15:01 Hydrocodone/Acetaminophen (*Crx) 5-325 Mg Tablet PO 1 tab Q4H PRN Administration Pain Rated 4-6 Lipase/Protease/Amylase 2 cap 06/12/22 17:00 06/14/22 11:00 Lipase/Amylase/Protease 12,000 Units Cap PO 2 cap TIDWM CECY Administration Enoxaparin Sodium 40 mg 06/02/22 09:00 06/14/22 08:04 Enoxaparin 40 Mg/0.4 Ml Syringe SUB-Q 40 mg DAILY CECY Administration Folic Acid 1 mg 06/04/22 09:00 06/14/22 08:04 Folic Acid 1 Mg/0.2 Ml Inj IV PUSH 1 mg QAM CECY Administration Dextrose 1,000 mls @ 50 mls/hr 06/06/22 12:42 Dextrose 10% IV CONT .Q20H PRN if PN is interrupted Piperacillin/Tazobactam/Dextrose 3.375 gm in 50 mls @ 100 mls/hr 06/10/22 12:00 06/14/22 11:30 Zosyn 3.375 Gm/D5w 50ml Pm IVPB Infused Q6H CECY Infusion Lorazepam 1 mg 06/06/22 14:50 06/13/22 20:33 Lorazepam Inj (*Crx) 2 Mg/Ml Vial IV PUSH 1 mg Q4H PRN Administration Anxiety Nicotine 1 patch 06/02/22 09:00 06/13/22 20:30 Nicotine (*Pbkc) 14 Mg Patch TRANSDERM 1 patch QAM CECY Administration Ondansetron HCl 4 mg 06/01/22 21:29 06/11/22 01:25 Ondansetron Inj 4 Mg/2 Ml Vial IV PUSH 4 mg Q4H PRN Administration Nausea Pantoprazole Sodium 40 mg 06/03/22 09:00 06/14/22 08:03 Pantoprazole Sod
[2022-06-14] MEDS: LORazepam INJ (*CRX) 2 MG/ML VIAL 1 MG IV PUSH (21:30)
[2022-06-14 22:20] VITALS: BP 128/64; PULSE 86; RESP 20; TEMP 36.2; O2SAT 98
[2022-06-15] MEDS: HYDROcodone/acetaminophen (*CRX) 5-325 MG TABLET 1 TAB PO ×2 (01:27→05:25)
[2022-06-15] MEDS: CENTRAL LINE FLUSH 10 ML IV PUSH (05:26)
--- NOTE | 2022-06-15 05:31 | PC.NURSE ---
Patient has been waking from sleep to request pain medication. Appears to be relaxed and comfortable.
[2022-06-15 06:00] VITALS: BP 105/75; PULSE 88; RESP 20; TEMP 36.7; O2SAT 99
[2022-06-15 07:46] LABS: Alanine Aminotransferase 97 U/L (6-50); Albumin Level 4.7 g/dL (3.5-5.1); Alkaline Phosphatase 89 U/L (38-126); Anion Gap 10 mmol/L (8-16); Aspartate Amino Transferase 87 U/L (17-59); Bilirubin,Total 0.9 mg/dL (0.2-1.3); Blood Urea Nitrogen 12 mg/dL (9-20); Calcium 9.7 mg/dL (8.4-10.2); Carbon Dioxide 26 mmol/L (22-30); Chloride 99 mmol/L (98-107); Estimated CRCL calculation 127 ml/min; Estimated Glomerular Filt Rate > 60; Glucose 105 mg/dL (65-110); Magnesium 2.2 mg/dL (1.6-2.3); Potassium 4.2 mmol/L (3.4-5.0); Sodium 135 mmol/L (137-145)
[2022-06-15 08:01] LABS: Hemoglobin 14.4 g/dL (14.0-18.0); Mean Corpuscular HGB Conc 32.7 g/dl (32-36); Mean Corpuscular Volume 100.9 fl (80-100); Mean Platelet Volume 10.7 fl (7.4-10.4); Platelet Count Result 531 k/mm3 (150-375); Red Blood Count 4.36 M/mm3 (4.6-6.20); Red Cell Distribution Width 14.3 % (11.5-14.5); White Blood Count 9.2 K/mm3 (4.5-10.0)
[2022-06-15 08:59] LABS: Lipase 1402 U/L (23-300)
[2022-06-15] MEDS: LIPASE/AMYLASE/PROTEASE 12,000 UNITS CAP 2 CAP PO ×2 (09:08→11:58)
[2022-06-15] MEDS: NICOTINE (*PBKC) 14 MG PATCH 1 PATCH TRANSDERM (09:09)
[2022-06-15] MEDS: PANTOPRAZOLE 40 MG TABLET PO (09:09)
[2022-06-15] MEDS: FOLIC ACID 1 MG TABLET PO (09:09)
[2022-06-15] MEDS: THIAMINE HCL 100 MG TABLET PO (09:09)
[2022-06-15] MEDS: ENOXAPARIN 40 MG/0.4 ML SYRINGE SUB-Q (09:10)
--- NOTE | 2022-06-15 11:48 | WPDGIPROGNO ---
Progress Note: A&P Assessment and Plan (1) Acute pancreatitis: Code(s): K85.90 - Acute pancreatitis without necrosis or infection, unspecified Status: Acute Assessment and Plan: doing much better and tolerating low fat diet no pain he can go home and will need follow-up office 3-4 weeks stop alcohol use (2) Alcohol abuse: Code(s): F10.10 - Alcohol abuse, uncomplicated Status: Acute Assessment and Plan: needs to quit (3) Leukocytosis: Code(s): D72.829 - Elevated white blood cell count, unspecified Status: Acute Assessment and Plan: probably from pancreatitis (4) Elevated transaminase level: Code(s): R74.01 - Elevation of levels of liver transaminase levels Status: Acute Assessment and Plan: normal bili now mild elevated transaminases, stable and probably from pancreatitis and abnormal ct scan will need follow-up in office Subjective Date/time seen: 06/15/22 11:48 Interval history: no more pain or nausea and has been tolerating low fat diet, he is feeling like going home Review of Systems Review of Systems: All systems reviewed & are unremarkable except as noted in HPI and below Exam Const: General: comfortable and no acute distress HENMT: Face/Nose/Sinus: Normal nares present Eyes: General: appearance normal, both eyes and all related structures Neck: Neck: no JVD Resp: Auscultation: clear to auscultation bilaterally Cardio: Rate: regular rate Rhythm: regular rhythm GI: Inspection: non-distended GI Palp: Yes Soft to palpation, No Tenderness to palpation present (GI) and No Guarding due to palpation present (GI) Skin: General skin exam: normal color Neuro: General: gait normal Speech: normal speech Extrem: General: normal to inspection Psych: Mental Status: mental status grossly normal Objective Data Vital Signs Vital Signs: Vital Signs - 24 hr 06/14/22 14:00 06/14/22 21:24 06/14/22 22:20 Temperature 97.4 F L 97.2 F L Pulse Rate 89 86 Respiratory Rate 18 20 Blood Pressure 146/78 H 128/64 Pulse Oximetry 99 98 Oxygen Delivery Room Air 06/15/22 06:00 Temperature 98.0 F Pulse Rate 88 Respiratory Rate 20 Blood Pressure 105/75 Pulse Oximetry 99 Oxygen Delivery Intake/Output Intake/Output: Intake & Output 01/1206/13/22 06/14/22 06/15/22 23:59 23:59 23:59 23:59 Intake Total 8070 7980 4030 900 Output Total 119 259 8941 Balance 8070 7236 3530 -100 Meds/Results Medications: Active Medications Generic Name Dose Route Start Last Admin Trade Name Freq PRN Reason Stop Dose Admin Acetaminophen 650 mg 06/07/22 16:55 06/07/22 23:21 Acetaminophen 325 Mg Tablet PO 650 mg Q6H PRN Administration Mild Pain (1-3) or Fever Hydrocodone Bitart/Acetaminophen 1 tab 06/04/22 15:40 06/15/22 05:25 Hydrocodone/Acetaminophen (*Crx) 5-325 Mg Tablet PO 1 tab Q4H PRN Administration Pain Rated 4-6 Lipase/Protease/Amylase 2 cap 06/12/22 17:00 06/15/22 09:08 Lipase/Amylase/Protease 12,000 Units Cap PO 2 cap TIDWM CECY Administration Enoxaparin Sodium 40 mg 06/02/22 09:00 06/15/22 09:10 Enoxaparin 40 Mg/0.4 Ml Syringe SUB-Q 40 mg DAILY CECY Administration Folic Acid 1 mg 06/15/22 09:00 06/15/22 09:09 Folic Acid 1 Mg Tablet PO 1 mg DAILY CECY Administration Dextrose 1,000 mls @ 50 mls/hr 06/06/22 12:42 Dextrose 10% IV CONT .Q20H PRN if PN is interrupted Piperacillin/Tazobactam/Dextrose 3.375 gm in 50 mls @ 100 mls/hr 06/10/22 12:00 06/15/22 06:18 Zosyn 3.375 Gm/D5w 50ml Pm IVPB Infused Q6H CECY Infusion Lorazepam 1 mg 06/06/22 14:50 06/14/22 21:30 Lorazepam Inj (*Crx) 2 Mg/Ml Vial IV PUSH 1 mg Q4H PRN Administration Anxiety Nicotine 1 patch 06/02/22 09:00 06/15/22 09:09 Nicotine (*Pbkc) 14 Mg Patch TRANSDERM 1 patch QAM CECY Administration Ondansetron HCl 4 mg 06/01/22 21:29 06/01
--- NOTE | 2022-06-15 12:11 | PM.DS ---
DS: Admitting Diagnosis Discharge Date 06/15/2022 Admitting Diagnosis abdominal pain DS: Discharge Diagnosis Discharge Diagnosis (1) Acute pancreatitis: Code(s): K85.90 - Acute pancreatitis without necrosis or infection, unspecified Status: Acute (2) Acute hypokalemia: Code(s): E87.6 - Hypokalemia Status: Acute (3) Alcohol abuse: Code(s): F10.10 - Alcohol abuse, uncomplicated Status: Acute (4) Hyperbilirubinemia: Code(s): E80.6 - Other disorders of bilirubin metabolism Status: Acute DS: Summary Hospital Course Hospital Course: # acute necrotizing alcohol pancreatitis : Patient was treated with aggressive IV fluid resuscitation. His leukocytosis initially worsened and was started on empiric antibiotics. His leukocytosis improved during the hospital stay. He had long protracted course with inability to tolerate oral diet and hence was placed on TPN during the hospital stay. Subsequently patient improved in diet was slowly advanced. He tolerated diet with minimal pain. Is also started on Creon. # mild transaminitis likely secondary to alcohol abuse Treated with IV fluids and pain medications. Need to stop alcohol use # alcohol abuse -drinks 99% banana, high proof alcohol last 4-5 years -patient states he has no alcohol withdrawal history -will have [facility] protocol to monitor -multivitamin, thiamine, folic acid supplement -home care music therapist consult for alcohol rehab services which were provided during the hospital stay # hypokalemia -secondary to alcohol abuse -potassium 2.3 giving 40 mEq IV potassium chloride x2 Aggressive potassium replacement as ordered # nicotine dependence -patient vapes daily -will give nicotine patch Diet:? low-fat DVT prophylaxis:?Lovenox Code status:? Full code Time Spent with Patient Time attestation: Total time spent providing and/or coordinating discharge services: 45 minutes Exam Narrative: moderately obese Patient is comfortable, NAD HEENT: eyes are clear and none icteric LUNGS: normal respiratory effort ABD: obese distended nontender no organomegaly Lower extremities: no edema no clubbing no cyanosis SKIN: nonjaundiced Neuro: grossly intact. Alert and oriented times 3 DS: Data Data Completed and Pending Labs on day of discharge: Labs from last 24 hours 06/15/22 06/15/22 06/15/22 07:30 07:30 07:30 WBC 9.2 RBC 4.36 L Hgb 14.4 Hct 44.0 MCV 100.9 H MCH 33.0 MCHC 32.7 RDW 14.3 Plt Count 531 H MPV 10.7 H Sodium 135 L Potassium 4.2 Chloride 99 Carbon Dioxide 26 Anion Gap 10 BUN 12 Creatinine 0.80 Estim Creat Clear Calc 127 Estimated GFR > 60 Glucose 105 Calcium 9.7 Magnesium 2.2 Total Bilirubin 0.9 AST 87 H ALT 97 H Alkaline Phosphatase 89 Total Protein 9.0 H Albumin 4.7 Lipase 1402 H Imaging Radiologist's impression: ITS Impressions Abdomen/Pelvis CT 06/01/22 20:34 IMPRESSION: Small left and trace right pleural effusions. Acute interstitial pancreatitis, with heterogeneous enhancement in the pancreatic head and uncinate process, which may represent pancreatic edema or early necrosis. Reactive duodenitis. Hepatomegaly with steatosis. ADDENDUM: 06/03/22 1404 This examination used a total of 200 ml Omnipaque 350 intravenous contrast due to contrast leakage from the injection tubing during the first scan. Abdomen/Pelvis CT 06/03/22 11:43 Impression: Acute pancreatitis, essentially unchanged from prior exam. Diffuse fatty infiltration of the liver. Small left pleural effusion. Chest X-Ray 06/06/22 14:46 IMPRESSION: 1. PICC tip at the superior cavoatrial junction. Abdomen CT 06/09/22 19:05 IMPRESSION: Persistent heterogeneous enhancement in the pancreatic head and new linear hypoenhancement in the pancreatic tail, both concerning for necrotizing
== END 2022-06-15 13:35 | disposition home or self-care (01) | DRG 282 ==
LOC: ANHED 21:36 → ANH2MED 21:57
PROVIDERS: Family Medicine; Internal Medicine Gastroenterology; Admitting Provider Student in an Organized Health Care Education/Training Program; Emergency Provider Emergency Medicine; PCP Nurse Practitioner Family; Visit Provider Internal Medicine
DX: K85.21 Alcohol induced acute pancreatitis with uninfected necrosis (principal); D64.9 Anemia, unspecified; D72.829 Elevated white blood cell count, unspecified; E80.6 Other disorders of bilirubin metabolism; E87.6 Hypokalemia; F17.290 Nicotine dependence, other tobacco product, uncomplicated; F10.10 Alcohol abuse, uncomplicated; R74.01 Elevation of levels of liver transaminase levels; Y90.0 Blood alcohol level of less than 20 mg/100 ml; Z20.822 Contact with and (suspected) exposure to COVID-19; Z28.21 Immunization not carried out because of patient refusal
CPT/HCPCS: 36415; 36569; 74160; 74177; 80053; 80307; 81001; 83615; 83690; 83735; 84100; 84132; 84145; 85025; 85027; 87040; 87637; 96365; 96366; 96375; 96376; 99285; A9270; C1751; C9113; G0378; G0379; J0131; J0743; J1170; J1650; J1885; J2060; J2405; J2543; J3411; J3480; J7030; J7040; Q9967

== ENCOUNTER 2023-09-23 18:50 | Inpatient (IN) | payer OTHER, SELFPAY ==
--- NOTE | ~2023-09-23 | CT_ITS ---
EXAMINATION: CT abdomen pelvis w con DATE: 09/23/2023 21:49 INDICATION: Pancreatitis. TECHNIQUE: Computed tomography (CT) of the abdomen and pelvis was performed with 100 mL Omnipaque 350 intravenous contrast. Automated exposure control and iterative reconstruction technique were employe d. The dose-length product was 671.14 mGy-cm. COMPARISON: CT abdomen 06/09/22 FINDINGS: The visualized portions of the lung bases demonstrate minimal atelectasis. Calcified left l stephanie nodules and calcified left hilar lymph nodes are consistent with old granulomatous disease. No p leural effusion. The heart size is normal. No pericardial effusion. There is diffuse hepatic steatosi s. The gallbladder, spleen, and adrenal glands are normal. There is fat stranding around the pancreas , consistent with acute interstitial pancreatitis. The kidneys are normal. There are no dilated loops of bowel. The appendix is normal. There are no pathologically enlarged lymph nodes. There is no free intraperitoneal fluid. There is internal fixation of left femur. There is mild thoracic and lumbar s pondylosis. IMPRESSION: 1. Acute interstitial pancreatitis. Reviewed, dictated and finalized at location E.
[2023-09-23 18:50] VITALS: BP 148/100; PULSE 90; RESP 16; TEMP 36.2; O2SAT 97
[2023-09-23 20:11] LABS: Basophils Percent Auto 0.3 % (0.2-1.2); Eosinophils Absolute Auto 0.2 K/mm3 (0-0.3); Hematocrit 46.9 % (42.0-52.0); Hemoglobin 16.3 g/dL (14.0-18.0); Immature Granulocyte Absolute 0.08 K/mm3 (0.00-0.031); Immature Granulocyte Percent A 0.5 % (0-0.5); Lymphocytes Absolute Auto 1.44 K/mm3 (0.9-3.2); Lymphocytes Percent Auto 9.4 % (18.3-44.2); Mean Corpuscular HGB Conc 34.8 g/dl (32-36); Mean Corpuscular Hemoglobin 30.8 pg (26-34); Mean Corpuscular Volume 88.5 fl (80-100); Monocytes Absolute Auto 0.9 K/mm3 (0.1-0.6); Monocytes Percent Auto 5.7 % (2.6-8.5); Neutrophils Absolute Auto 12.7 K/mm3 (1.3-6.7); Neutrophils Percent Auto 83.1 % (45.5-73.1); Platelet Count Result 236 k/mm3 (150-375); White Blood Count 15.3 K/mm3 (4.5-10.0)
[2023-09-23 20:25] LABS: Alanine Aminotransferase 53 U/L (6-50); Albumin Level 4.7 g/dL (3.5-5.1); Alkaline Phosphatase 110 U/L (38-126); Anion Gap 10 mmol/L (4-12); Aspartate Amino Transferase 39 U/L (17-59); Bilirubin,Total 1.4 mg/dL (0.2-1.3); Blood Urea Nitrogen 7 mg/dL (9-20); Calcium 9.6 mg/dL (8.4-10.2); Carbon Dioxide 24 mmol/L (22-30); Chloride 104 mmol/L (98-107); Estimated CRCL calculation 188 ml/min; Estimated Glomerular Filt Rate > 60; Glucose 131 mg/dL (65-110); Lipase 593 U/L (23-300); Potassium 3.7 mmol/L (3.4-5.0); Sodium 138 mmol/L (137-145)
[2023-09-23 20:32] LABS: Appearance Urine Cloudy (Clear); Bacteria Urine None Seen /hpf; Bilirubin Urine Negative (Negative); Blood Urine Negative (Negative); Color Urine Dark Yellow (Yellow); Glucose Urine UA Negative (Negative); Ketones Urine Trace mg/dL (Negative); Leukocyte Esterase Ur Negative LEU/UL (Negative); Mucus Urine Present /lpf; Need Manual Microscopic Reviewed; Nitrate Urine Negative (Negative); Non Pathogenic Casts 0-2; Protein Urine Negative (Negative); RBC Urine 0-2 /hpf (0-2); Specific Grav Ur 1.027 (1.001-1.035); Squamous Epithelial Cell Urine None Seen /hpf (Few); WBC Urine 0-5 /hpf (0-3); pH Urine 5.5 (5.0-9.0)
[2023-09-23 20:33] LABS: Add Urine Microscopic? YES
--- NOTE | 2023-09-23 21:35 | ED.ABDPAIN ---
HPI - Abdominal Pain General Chief Complaint: Abdominal Pain Stated Complaint: abd pain Time Seen by Provider: 09/23/23 21:17 History of Present Illness HPI narrative: Patient is a 27-year-old male who presents to the emergency department this evening complaining of midepigastric and left upper quadrant abdominal pain radiating across his bilateral mid torso to his back. Patient admits to history of alcoholic pancreatitis and states that he did drink alcohol a few days ago and believes that that is what precipitated this. Patient states that he has felt nauseous all day but denies any vomiting episodes. No additional symptoms or concerns at this time. Related Data Allergies Allergy/AdvReac Type Severity Reaction Status Date / Time No Known Allergies Allergy Unverified 07/19/17 21:28 Review of Systems Review of Systems: All systems are reviewed and are negative unless stated otherwise in the HPI. [facility] Past Medical History Medical History Alcohol abuse Elevated transaminase level Pancreatitis Surgical History Surgical History No pertinent past surgical history Family History Family History Mother Cerebrovascular accident Hypertension Social History Social History Social History: Drinks at least 12 shots of 100 proof alcohol per day. Smoking status: Current every day smoker Tobacco type: e-cigarettes/vaping Alcohol intake: current Drinks per week: 84 Substance use: former Substance use type: methamphetamine Lack of Transportation: No Lack of Food: Never True Current Housing: I Have Housing Concerned About Future Housing: No Difficulty Paying Gas/Electric Bills: No Difficulty Paying for Meds: No Currently Unemployed: No Education: Grade School Difficulty w/ Childcare or Family Care: No Spiritual care concerns: No Exam Narrative: General: Alert, awake, afebrile, in no acute distress. Cardiovascular: Regular rate and rhythm, no murmurs, rubs or gallops, no peripheral edema. Respiratory: Clear to auscultation bilaterally, no tachypnea, no wheezing, no rhonchi, no rubs, no respiratory distress. Abdomen: Soft, tenderness to palpation over the left upper quadrant, nondistended, no rebound, no guarding, no peritoneal signs. Musculoskeletal: No joint swelling or deformity, normal muscle tone. Skin: No rashes or petechia, no signs of infection. Psychiatric: Alert and oriented, normal behavior and judgment for situation. Neurological: Alert and oriented to person, place, and time. Follows all commands. No focal deficits, speech is clear and fluent. Course Vital Signs Vital signs: Vital Signs Temperature 97.1 F L 09/23/23 18:50 Pulse Rate 90 09/23/23 18:50 Respiratory Rate 16 09/23/23 18:50 Blood Pressure 148/100 H 09/23/23 18:50 Pulse Oximetry 97 09/23/23 18:50 Temperature 97.1 F L 09/23/23 18:50 Pulse Rate 81 09/24/23 01:19 Respiratory Rate 16 09/24/23 01:19 Blood Pressure 136/92 H 09/24/23 01:19 Pulse Oximetry 97 09/24/23 01:19 MDM - Abdominal Pain MDM Narrative Medical decision making narrative: The patient was evaluated by myself in the emergency department. History is obtained from patient who is an independent historian and physical exam was performed. External medical records were reviewed at this time. IV was established and pertinent tests were ordered. Patient was administered 4 mg IV morphine for pain and 4 mg of IV Zofran for nausea and 2 L IV fluid bolus with normal saline. Laboratory results obtained revealing a white count of 15.3, lipase of 593, ALT 53, total bili 1.4. Urinalysis revealed trace ketones. Imaging studies obtained included CT abdomen pelvis with IV contrast which was indepe
[2023-09-23] MEDS: ONDANSETRON INJ 4 MG/2 ML VIAL IV PUSH (21:50)
[2023-09-23] MEDS: MORPHINE SULFATE (*CRX) 4 MG/ML INJ IV PUSH (21:50)
[2023-09-23] MEDS: SODIUM CHLORIDE 0.9% IV 1,000 ML 999 ML IV CONT ×2 (21:51→22:17)
[2023-09-23 21:54] VITALS: BP 147/92; PULSE 76; RESP 19; O2SAT 96
[2023-09-23] MEDS: LACTATED RINGERS 1,000 ML 200 ML IV CONT (23:29)
[2023-09-24] VITALS (9 sets, daily range): BP systolic 107–149; BP diastolic 62–92; PULSE 75–85; RESP 16–18; TEMP 36.2–36.7; O2SAT 95–98; BMI 30.7
[2023-09-24] MEDS: ONDANSETRON INJ 4 MG/2 ML VIAL IV PUSH ×2 (01:16→11:09)
[2023-09-24] MEDS: MORPHINE SULFATE (*CRX) 4 MG/ML INJ IV PUSH (01:16)
--- NOTE | 2023-09-24 02:06 | PM.IMHP ---
H&P: HPI History of Present Illness Date/Time: 09/24/23 02:06 Chief Complaint: epigastric pain Narrative: this is a 27-year-old male with past medical history significant for chronic pancreatitis, Tobacco dependence, alcohol dependence, obesity. Patient presents to the emergency room with epigastric pain, nausea, rates his pain at 8/10 in intensity, no fevers no rigors no chills, no hematemesis no coffee-ground emesis no melena. Patient had been sober but started binge drinking recently. He also vapes. EXAMINATION: CT abdomen pelvis w con DATE: 09/23/2023 21:49 INDICATION: Pancreatitis. TECHNIQUE: Computed tomography (CT) of the abdomen and pelvis was performed with 100 mL Omnipaque 350 intravenous contrast. Automated exposure control and iterative reconstruction technique were employed. The dose-length product was 671.14 mGy-cm. COMPARISON: CT abdomen 06/09/22 FINDINGS: The visualized portions of the lung bases demonstrate minimal atelectasis. Calcified left lung nodules and calcified left hilar lymph nodes are consistent with old granulomatous disease.? No pleural effusion. The heart size is normal. No pericardial effusion. There is diffuse hepatic steatosis. The gallbladder, spleen, and adrenal glands are normal. There is fat stranding around the pancreas, consistent with acute interstitial pancreatitis. The kidneys are normal. There are no dilated loops of bowel. The appendix is normal. There are no pathologically enlarged lymph nodes. There is no free intraperitoneal fluid. There is internal fixation of left femur. There is mild thoracic and lumbar spondylosis. IMPRESSION: 1. Acute interstitial pancreatitis. Review of Systems Review of Systems: abdominal pain in the epigastric area, nausea, binge drinking Constitutional: Constitutional: Denies chills, Denies fever(s) and Denies malaise Eyes: Eyes: Denies change in vision ENT: Denies dysphagia and Denies odynophagia Cardiovascular: Cardiovascular: Denies chest pain, Denies radiating jaw, neck or arm pain and Denies palpitations Respiratory: Respiratory: Denies chest congestion and Denies dyspnea Gastrointestinal: Gastrointestinal: Reports abdominal pain ( epigastric area), Denies melena, Denies hematochezia and Denies coffee ground emesis Genitourinary: Genitourinary: Denies dysuria Musculoskeletal: Musculoskeletal: Denies myalgias Integumentary/Breasts: Skin/Breast: Denies rash Neurologic: Denies focal weakness and Denies Sensory deficit (Neuro) Psychiatric: Psychiatric: Reports no additional psychiatric complaints and Reports as per HPI Endocrine: Endocrine: Denies cold intolerance, Denies fatigue, Denies flushing, Denies heat intolerance, Denies polyphagia, Denies polydipsia, Denies polyuria and Denies palpitations Hematologic/Lymphatic: Hematologic/Lymphatic: Reports no additional hematologic/lymphatic complaints and Reports as per HPI Allergic/Immunologic: Allergic/Immunologic: Reports no additional allergic/immunologic complaints and Reports as per HPI PMFSH Past Medical History Medical History Alcohol abuse Elevated transaminase level Pancreatitis Surgical History Surgical History No pertinent past surgical history Family History Family History Mother Cerebrovascular accident Hypertension Social History Social History Social History: Drinks at least 12 shots of 100 proof alcohol per day. Smoking status: Current every day smoker Tobacco type: e-cigarettes/vaping Alcohol intake: current Drinks per week: 7 Substance use: former Substance use type: marijuana Do You Feel Safe in your Home?: Yes Lack of Transportation: No Lack of Food: Never True Current Housing: I Have Housing Concerned About F
--- NOTE | 2023-09-24 03:27 | ADMGEN ---
This patient, Alonso Bender, was admitted to Medical Room 258-01. Patient/family oriented to hospital policies and general routines including ID bracelet, bed and alarms, visiting hours, pain management, procedures, bathroom and other care routines, personal items, smoking policy, room service/diet, and visiting hours. Information on how to activate the Rapid Response Team has been discussed. Patient/Family are encouraged to report perceived risks to care and to ask questions if they do not understand what they are told or what they should do.
[2023-09-24] MEDS: chlordiazePOXIDE (*CRX) 25 MG CAPSULE 50 MG PO ×4 (05:45→23:17)
[2023-09-24] MEDS: HYDROmorphone HCL INJ (*CRX) 1 MG/ML SYR IV PUSH ×5 (05:46→21:53)
[2023-09-24 06:28] LABS: Glucose Point of Care 122 mg/dl (65-105)
[2023-09-24] MEDS: PROPRANOLOL HCL 20 MG TABLET PO ×3 (09:03→18:00)
[2023-09-24] MEDS: buPROPion HCL XL (24 HR) 150 MG TABCR PO (09:03)
[2023-09-24] MEDS: LACTATED RINGERS 1,000 ML 100 ML IV CONT ×2 (09:05→21:50)
--- NOTE | 2023-09-24 10:36 | PM.IMPN ---
Progress Note: A&P Assessment and Plan (1) Acute on chronic pancreatitis: Code(s): K85.90 - Acute pancreatitis without necrosis or infection, unspecified; K86.1 - Other chronic pancreatitis Status: Acute Assessment and Plan: placed in observation clear liquids diet supportive care 09/23: Slight increase in lipase, patient tolerating clear liquid diet with some nausea and continued need for IV pain medication. IV fluids infusing. (2) Alcohol dependence: Code(s): F10.20 - Alcohol dependence, uncomplicated Status: Acute Assessment and Plan: CIWA as needed, recently sober has started binge drinking again 09/23: No signs of withdrawal (3) Epigastric abdominal pain: Code(s): R10.13 - Epigastric pain Status: Acute Assessment and Plan: likely secondary to pancreatitis supportive care (4) Tobacco dependence: Code(s): F17.200 - Nicotine dependence, unspecified, uncomplicated Status: Acute Assessment and Plan: patient vapes Plan IV fluids, advanced diet as tolerated, pain and nausea medication as needed Time Spent With Patient Time with patient: 25 - 35 minutes Subjective Date/time seen: 09/24/23 10:36 Interval history: Patient reports epigastric abdominal pain and nausea slightly exacerbated by clear liquid diet. Patient reports 1 prior admission for pancreatitis that required him to be NPO essentially for a couple weeks per patient report. His pain is controlled medication. IV fluids are infusing. Will order labs for recheck. Review of Systems Review of Systems: abdominal pain in the epigastric area, nausea, binge drinking All systems reviewed & are unremarkable except as noted in HPI and below Exam Const: General: no acute distress, alert, awake and obese Nutritional Appearance: obese Orientation/consciousness: patient oriented x3 HENMT: Head: normal to inspection, normocephalic and atraumatic Ears: hearing grossly normal bilaterally Face/Nose/Sinus: normal facial exam Face and sinus: normal facial exam Eyes: General: appearance normal, both eyes and all related structures Pupils: Equal, round and reactive pupils present EOM: EOMs intact bilaterally Neck: Neck: full ROM, no lymphadenopathy and no JVD Thyroid: thyroid normal Lymphatic: no lymphadenopathy noted Resp: Effort & Inspection: normal respiratory effort and able to speak in complete sentences Auscultation: clear to auscultation bilaterally Cardio: Jugular venous distension: no JVD Rate: regular rate Rhythm: regular rhythm Heart sounds: S1 normal heart sound present and S2 normal heart sound present GI: Inspection: obesity Skin: Rashes: no rashes Wounds: no wounds Neuro: General: patient oriented x3 and CN's II-XI intact bilaterally Cranial nerves: Yes CN's II-XII intact bilaterally and Yes Equal, round and reactive pupils present Cognition (Neuro): normal cognition Speech: normal speech Gait exam (Neuro): Normal gait present Motor exam (neuro): 5/5 motor strength present throughout Sensory Exam: No Sensory deficit (Neuro) Extrem: General: normal to inspection, full ROM, no joint enlargement and no pedal edema Objective Data Vital Signs Vital Signs: Vital Signs - 24 hr 09/23/23 18:50 09/23/23 21:54 09/24/23 01:19 Temperature 36.2 C L Pulse Rate 90 76 81 Respiratory Rate 16 19 16 Blood Pressure 148/100 H 147/92 H 136/92 H Pulse Oximetry 97 96 97 Oxygen Delivery Fraction of Inspired Oxygen 09/24/23 03:27 09/24/23 03:30 09/24/23 06:00 Temperature 36.4 C 36.7 C Pulse Rate 83 85 Respiratory Rate 18 16 Blood Pressure 146/87 H 149/86 H Pulse Oximetry 97 98 Oxygen Delivery Room Air Fraction of Inspired Oxygen 09/24/23 07:56 09/24/23 09:03 Temperature Pulse Rate 75 Respiratory Rate Blood Pressure Pulse Oximetry 97 Oxygen Delivery Room Air Fraction of Inspired Oxygen 21 Intake/Output Intake/Out
[2023-09-24 11:03] LABS: Basophils Percent Auto 0.1 % (0.2-1.2); Eosinophils Absolute Auto 0.3 K/mm3 (0-0.3); Eosinophils Percent Auto 2.1 % (0-4.4); Hematocrit 42.8 % (42.0-52.0); Hemoglobin 14.7 g/dL (14.0-18.0); Immature Granulocyte Absolute 0.06 K/mm3 (0.00-0.031); Immature Granulocyte Percent A 0.4 % (0-0.5); Lymphocytes Absolute Auto 2.07 K/mm3 (0.9-3.2); Lymphocytes Percent Auto 14.2 % (18.3-44.2); Mean Corpuscular HGB Conc 34.3 g/dl (32-36); Mean Corpuscular Hemoglobin 30.6 pg (26-34); Monocytes Absolute Auto 1.2 K/mm3 (0.1-0.6); Monocytes Percent Auto 8.1 % (2.6-8.5); Neutrophils Absolute Auto 10.9 K/mm3 (1.3-6.7); Neutrophils Percent Auto 75.1 % (45.5-73.1); Platelet Count Result 216 k/mm3 (150-375); Red Blood Count 4.81 M/mm3 (4.6-6.20); Red Cell Distribution Width 14.1 % (11.5-14.5); White Blood Count 14.5 K/mm3 (4.5-10.0)
[2023-09-24 11:24] LABS: Alanine Aminotransferase 37 U/L (6-50); Alkaline Phosphatase 76 U/L (38-126); Anion Gap 5 mmol/L (4-12); Aspartate Amino Transferase 26 U/L (17-59); Bilirubin,Total 1.4 mg/dL (0.2-1.3); Blood Urea Nitrogen 3 mg/dL (9-20); Calcium 8.7 mg/dL (8.4-10.2); Carbon Dioxide 27 mmol/L (22-30); Chloride 103 mmol/L (98-107); Estimated CRCL calculation 185 ml/min; Estimated Glomerular Filt Rate > 60; Glucose 117 mg/dL (65-110); Lipase 641 U/L (23-300); Potassium 3.3 mmol/L (3.4-5.0); Sodium 135 mmol/L (137-145)
[2023-09-24] MEDS: QUEtiapine FUMARATE 25 MG TABLET 50 MG PO (11:33)
[2023-09-24 12:08] LABS: Glucose Point of Care 118 mg/dl (65-105)
--- NOTE | 2023-09-24 12:31 | PC.NURSE ---
On 09/24/23, the student, [Liyah Avalos], provided care and completed [facility] documentation on this patient. I have reviewed the student's documentation and agree with the findings.
[2023-09-24] MEDS: POTASSIUM CHLORIDE 20 MEQ PACKET (FOR LIQUID) 40 MEQ PO (18:01)
[2023-09-24] MEDS: KETOROLAC 15 MG/ML VIAL (*BKC) IV PUSH (18:45)
[2023-09-24 19:06] LABS: Glucose Point of Care 93 mg/dl (65-105)
[2023-09-24] MEDS: QUEtiapine FUMARATE 100 MG TABLET 200 MG PO (19:57)
[2023-09-24] MEDS: MIRTAZAPINE 15 MG TABLET PO (19:57)
[2023-09-25] VITALS (8 sets, daily range): BP systolic 112–139; BP diastolic 63–76; PULSE 79–93; RESP 16–18; TEMP 36.1–36.2; O2SAT 94–99
[2023-09-25 00:46] LABS: Glucose Point of Care 94 mg/dl (65-105)
[2023-09-25] MEDS: HYDROmorphone HCL INJ (*CRX) 1 MG/ML SYR IV PUSH ×4 (02:50→13:18)
[2023-09-25 05:14] LABS: Basophils Percent Auto 0.3 % (0.2-1.2); Eosinophils Absolute Auto 0.3 K/mm3 (0-0.3); Hematocrit 40.2 % (42.0-52.0); Hemoglobin 13.9 g/dL (14.0-18.0); Immature Granulocyte Absolute 0.07 K/mm3 (0.00-0.031); Immature Granulocyte Percent A 0.6 % (0-0.5); Lymphocytes Percent Auto 27.6 % (18.3-44.2); Mean Corpuscular HGB Conc 34.6 g/dl (32-36); Mean Corpuscular Hemoglobin 31.3 pg (26-34); Mean Corpuscular Volume 90.5 fl (80-100); Mean Platelet Volume 11.5 fl (7.4-10.4); Monocytes Absolute Auto 1.1 K/mm3 (0.1-0.6); Monocytes Percent Auto 10.2 % (2.6-8.5); Neutrophils Absolute Auto 6.3 K/mm3 (1.3-6.7); Neutrophils Percent Auto 58.3 % (45.5-73.1); Platelet Count Result 175 k/mm3 (150-375); Red Blood Count 4.44 M/mm3 (4.6-6.20); Red Cell Distribution Width 14.4 % (11.5-14.5); White Blood Count 10.9 K/mm3 (4.5-10.0)
[2023-09-25 05:28] LABS: Alanine Aminotransferase 29 U/L (6-50); Albumin Level 3.5 g/dL (3.5-5.1); Alkaline Phosphatase 73 U/L (38-126); Anion Gap 6 mmol/L (4-12); Aspartate Amino Transferase 21 U/L (17-59); Bilirubin,Total 1.1 mg/dL (0.2-1.3); Blood Urea Nitrogen 5 mg/dL (9-20); Calcium 8.4 mg/dL (8.4-10.2); Carbon Dioxide 27 mmol/L (22-30); Chloride 103 mmol/L (98-107); Estimated CRCL calculation 161 ml/min; Estimated Glomerular Filt Rate > 60; Glucose 95 mg/dL (65-110); Lipase 364 U/L (23-300); Magnesium 1.9 mg/dL (1.6-2.3); Sodium 136 mmol/L (137-145)
[2023-09-25 05:43] LABS: Glucose Point of Care 123 mg/dl (65-105)
[2023-09-25] MEDS: chlordiazePOXIDE (*CRX) 25 MG CAPSULE 50 MG PO ×4 (06:12→23:35)
[2023-09-25] MEDS: buPROPion HCL XL (24 HR) 150 MG TABCR PO (09:32)
[2023-09-25] MEDS: POTASSIUM CHLORIDE 20 MEQ PACKET (FOR LIQUID) 40 MEQ PO (09:32)
[2023-09-25] MEDS: QUEtiapine FUMARATE 25 MG TABLET 50 MG PO (09:32)
[2023-09-25] MEDS: POTASSIUM CHLORIDE INJ 40 MEQ in SODIUM CHLORIDE 0.9% IV 500 ML 130 MEQ IVPB (09:32)
[2023-09-25] MEDS: LACTATED RINGERS 1,000 ML 100 ML IV CONT ×2 (09:37→23:41)
[2023-09-25] MEDS: PROPRANOLOL HCL 20 MG TABLET PO ×3 (09:38→18:15)
--- NOTE | 2023-09-25 10:24 | PM.IMPN ---
Progress Note: A&P Assessment and Plan (1) Acute on chronic pancreatitis: Code(s): K85.90 - Acute pancreatitis without necrosis or infection, unspecified; K86.1 - Other chronic pancreatitis Status: Acute Assessment and Plan: placed in observation clear liquids diet supportive care 09/23: Slight increase in lipase, patient tolerating clear liquid diet with some nausea and continued need for IV pain medication. IV fluids infusing. 09/24: Lipase beginning to trend downward. Increase diet to bland soft diet for lunch. Added oral Collins as patient states still added is not helping his pain. (2) Alcohol dependence: Code(s): F10.20 - Alcohol dependence, uncomplicated Status: Acute Assessment and Plan: CIWA as needed, recently sober has started binge drinking again 09/23: No signs of withdrawal (3) Epigastric abdominal pain: Code(s): R10.13 - Epigastric pain Status: Acute Assessment and Plan: likely secondary to pancreatitis supportive care See 1. (4) Tobacco dependence: Code(s): F17.200 - Nicotine dependence, unspecified, uncomplicated Status: Acute Assessment and Plan: patient vapes Plan IV fluids, advanced diet as tolerated, pain and nausea medication as needed Time Spent With Patient Time with patient: 25 - 35 minutes Subjective Date/time seen: 09/25/23 10:24 Interval history: Patient reports that he was able to tolerate liquid diet that he still had continuous ache across his epigastrium but not as much stabbing pain and nausea. Potassium was low this morning on a.m. labs. Oral and IV replacement ordered. Patient requesting IV to be replaced into a different location due to bending his arm causing it to hurt and stopped flowing. Nursing staff reported later on in the day that patient is complaining the Dilaudid is not helping his pain now that we have advanced his diet to a bland diet. We will add oral Collins. Yesterday we also added IV ketorolac. Review of Systems Review of Systems: All systems reviewed & are unremarkable except as noted in HPI and below Exam Const: General: no acute distress, alert, awake and obese Nutritional Appearance: obese Orientation/consciousness: patient oriented x3 HENMT: Head: normal to inspection, normocephalic and atraumatic Ears: hearing grossly normal bilaterally Face/Nose/Sinus: normal facial exam Face and sinus: normal facial exam Eyes: General: appearance normal, both eyes and all related structures Pupils: Equal, round and reactive pupils present EOM: EOMs intact bilaterally Neck: Neck: full ROM, no lymphadenopathy and no JVD Thyroid: thyroid normal Lymphatic: no lymphadenopathy noted Resp: Effort & Inspection: normal respiratory effort and able to speak in complete sentences Auscultation: clear to auscultation bilaterally Cardio: Jugular venous distension: no JVD Rate: regular rate Rhythm: regular rhythm Heart sounds: S1 normal heart sound present and S2 normal heart sound present GI: Inspection: obesity Skin: Rashes: no rashes Wounds: no wounds Neuro: General: patient oriented x3 and CN's II-XI intact bilaterally Cranial nerves: Yes CN's II-XII intact bilaterally and Yes Equal, round and reactive pupils present Cognition (Neuro): normal cognition Speech: normal speech Gait exam (Neuro): Normal gait present Motor exam (neuro): 5/5 motor strength present throughout Sensory Exam: No Sensory deficit (Neuro) Extrem: General: normal to inspection, full ROM, no joint enlargement and no pedal edema Objective Data Vital Signs Vital Signs: Vital Signs - 24 hr 09/24/23 13:01 09/24/23 13:04 09/24/23 18:00 Temperature Pulse Rate 75 75 80 Respiratory Rate 16 Blood Pressure 107/62 Pulse Oximetry 97 Oxygen Delivery 09/24/23 20:00 09/24/23 21:43 09/25/23 05:21 Temperature 36.2 C L 36.2 C L Pulse Rate 80 79 Respiratory Rate 16 18 Blood Pressure 116/
[2023-09-25] MEDS: ONDANSETRON INJ 4 MG/2 ML VIAL IV PUSH (13:26)
[2023-09-25] MEDS: HYDROcodone/acetaminophen (*CRX) 7.5-325 MG TABLET 1 TAB PO ×2 (16:57→21:22)
[2023-09-25 18:51] LABS: Glucose Point of Care 138 mg/dl (65-105)
[2023-09-25] MEDS: MIRTAZAPINE 15 MG TABLET PO (21:02)
[2023-09-25] MEDS: QUEtiapine FUMARATE 100 MG TABLET 200 MG PO (21:02)
[2023-09-25 23:49] LABS: Glucose Point of Care 116 mg/dl (65-105)
[2023-09-26 05:05] LABS: Basophils Absolute Auto 0.1 K/mm3 (0.0-0.1); Basophils Percent Auto 0.7 % (0.2-1.2); Eosinophils Absolute Auto 0.5 K/mm3 (0-0.3); Eosinophils Percent Auto 5.3 % (0-4.4); Hematocrit 40.7 % (42.0-52.0); Hemoglobin 13.8 g/dL (14.0-18.0); Immature Granulocyte Percent A 1.2 % (0-0.5); Lymphocytes Absolute Auto 2.99 K/mm3 (0.9-3.2); Lymphocytes Percent Auto 35.2 % (18.3-44.2); Mean Corpuscular HGB Conc 33.9 g/dl (32-36); Mean Corpuscular Hemoglobin 31.2 pg (26-34); Mean Corpuscular Volume 92.1 fl (80-100); Mean Platelet Volume 11.3 fl (7.4-10.4); Monocytes Percent Auto 12.2 % (2.6-8.5); Neutrophils Absolute Auto 3.9 K/mm3 (1.3-6.7); Neutrophils Percent Auto 45.4 % (45.5-73.1); Platelet Count Result 204 k/mm3 (150-375); Red Blood Count 4.42 M/mm3 (4.6-6.20); Red Cell Distribution Width 14.4 % (11.5-14.5); White Blood Count 8.5 K/mm3 (4.5-10.0)
[2023-09-26 05:18] LABS: Alanine Aminotransferase 24 U/L (6-50); Albumin Level 3.6 g/dL (3.5-5.1); Alkaline Phosphatase 62 U/L (38-126); Anion Gap 6 mmol/L (4-12); Aspartate Amino Transferase 18 U/L (17-59); Bilirubin,Total 0.5 mg/dL (0.2-1.3); Blood Urea Nitrogen 5 mg/dL (9-20); Calcium 8.9 mg/dL (8.4-10.2); Carbon Dioxide 27 mmol/L (22-30); Chloride 107 mmol/L (98-107); Estimated CRCL calculation 185 ml/min; Estimated Glomerular Filt Rate > 60; Glucose 122 mg/dL (65-110); Lipase 212 U/L (23-300); Magnesium 2.1 mg/dL (1.6-2.3); Potassium 3.4 mmol/L (3.4-5.0); Sodium 140 mmol/L (137-145)
[2023-09-26] MEDS: chlordiazePOXIDE (*CRX) 25 MG CAPSULE 50 MG PO (06:07)
[2023-09-26 06:58] VITALS: BP 146/74; PULSE 80; RESP 14; TEMP 36.6; O2SAT 99
[2023-09-26 07:00] LABS: Glucose Point of Care 83 mg/dl (65-105)
[2023-09-26] MEDS: HYDROcodone/acetaminophen (*CRX) 7.5-325 MG TABLET 1 TAB PO (07:05)
[2023-09-26] MEDS: buPROPion HCL XL (24 HR) 150 MG TABCR PO (09:32)
[2023-09-26] MEDS: POTASSIUM CHLORIDE 20 MEQ ER TABLET 40 MEQ PO (09:32)
[2023-09-26] MEDS: QUEtiapine FUMARATE 25 MG TABLET 50 MG PO (09:32)
[2023-09-26] MEDS: PROPRANOLOL HCL 20 MG TABLET PO ×2 (09:32→13:43)
[2023-09-26] MEDS: LACTATED RINGERS 1,000 ML 100 ML IV CONT (09:33)
[2023-09-26 11:59] LABS: Glucose Point of Care 95 mg/dl (65-105)
--- NOTE | 2023-09-26 12:25 | PM.IMPN ---
Subjective Date/time seen: 09/26/23 12:25 Objective Data Vital Signs Vital Signs: Vital Signs - 24 hr 09/25/23 13:15 09/25/23 13:16 09/25/23 18:14 Temperature Pulse Rate 86 86 83 Respiratory Rate 16 16 Blood Pressure 136/66 139/76 Pulse Oximetry 97 96 09/25/23 18:15 09/25/23 21:42 09/26/23 06:58 Temperature 36.1 C L 36.6 C Pulse Rate 83 82 80 Respiratory Rate 16 14 Blood Pressure 135/65 146/74 H Pulse Oximetry 99 99 Intake/Output Intake/Output: Intake & Output 09/23/23 09/24/23 09/25/23 09/26/23 23:59 23:59 23:59 23:59 Intake Total 1999 2940 3660 1806.7 Output Total 300 2000 Balance 1999 2640 1660 1806.7 Meds/Results Medications: Active Medications Generic Name Dose Route Start Last Admin Trade Name Freq PRN Reason Stop Dose Admin Hydrocodone Bitart/Acetaminophen 1 tab 09/25/23 14:28 09/26/23 07:05 Hydrocodone/Acetaminophen (*Crx) 7.5-325 Mg Tablet PO 1 tab Q4H PRN Administration Pain Rated 7-10 Bupropion HCl 150 mg 09/24/23 09:00 09/26/23 09:32 Bupropion Hcl Xl (24 Hr) 150 Mg Tabcr PO 150 mg DAILY CECY Administration Hydromorphone HCl 1 mg 09/24/23 05:31 09/25/23 13:18 Hydromorphone Hcl Inj (*Crx) 1 Mg/Ml Syr IV PUSH 1 mg Q3H PRN Administration Pain Rated 7-10 Lactated Ringer's 1,000 mls @ 100 mls/hr 09/24/23 07:30 09/26/23 09:33 Lr - Lactated Ringers Iv IV CONT 100 mls/hr .Q10H CECY Administration Ketorolac Tromethamine 15 mg 09/24/23 18:26 09/24/23 18:45 Ketorolac 15 Mg/Ml Vial (*Bkc) IV PUSH 15 mg Q6H PRN Administration Pain 1-6 Lorazepam 2 mg 09/24/23 05:30 Lorazepam Inj (*Crx) 2 Mg/Ml Vial IV PUSH Q4H PRN CIWA 8-15 Mirtazapine 15 mg 09/24/23 21:00 09/25/23 21:02 Mirtazapine 15 Mg Tablet PO 15 mg HS CECY Administration Ondansetron HCl 4 mg 09/24/23 10:40 09/25/23 13:26 Ondansetron Inj 4 Mg/2 Ml Vial IV PUSH 4 mg Q4H PRN Administration Nausea And Vomiting Propranolol HCl 20 mg 09/24/23 09:00 09/26/23 09:32 Propranolol Hcl 20 Mg Tablet PO 20 mg TID CECY Administration Quetiapine Fumarate 50 mg 09/24/23 10:45 09/26/23 09:32 Quetiapine Fumarate 25 Mg Tablet PO 50 mg QAM CECY Administration Quetiapine Fumarate 200 mg 09/24/23 21:00 09/25/23 21:02 Quetiapine Fumarate 100 Mg Tablet PO 200 mg HS CECY Administration Radiology Results: ITS Impressions Abdomen/Pelvis CT 09/23/23 21:55 IMPRESSION: 1. Acute interstitial pancreatitis. Labs Labs: Laboratory Results - last 24 hr 09/25/23 09/25/23 09/26/23 18:48 23:46 04:40 WBC 8.5 RBC 4.42 L Hgb 13.8 L Hct 40.7 L MCV 92.1 MCH 31.2 MCHC 33.9 RDW 14.4 Plt Count 204 MPV 11.3 H Immature Gran % (Auto) 1.2 H Neut % (Auto) 45.4 L Lymph % (Auto) 35.2 [place] % (Auto) 12.2 H Eos % (Auto) 5.3 H Baso % (Auto) 0.7 Lymph # (Auto) 2.99 [place] # (Auto) 1.0 H Eos # (Auto) 0.5 H Baso # (Auto) 0.1 Abs Immat Gran (auto) 0.10 H Absolute Neuts (auto) 3.9 Absolute Nucleated RBC 0.000 Nucleated RBC % 0.0 Sodium 140 Potassium 3.4 Chloride 107 Carbon Dioxide 27 Anion Gap 6 BUN 5 L Creatinine 0.60 L Estim Creat Clear Calc 185 Estimated GFR > 60 Glucose 122 H POC Capillary Glucose 138 H 116 H Calcium 8.9 Magnesium 2.1 Total Bilirubin 0.5 AST 18 ALT 24 Alkaline Phosphatase 62 Total Protein 6.0 L Albumin 3.6 Lipase 212 09/26/23 09/26/23 06:57 11:53 WBC RBC Hgb Hct MCV MCH MCHC RDW Plt Count MPV Immature Gran % (Auto) Neut % (Auto) Lymph % (Auto) [place] % (Auto) Eos % (Auto) Baso % (Auto) Lymph # (Auto) [place] # (Auto) Eos # (Auto) Baso # (Auto) Abs Immat Gran (auto) Absolute Neuts (auto) Absolute Nucleated RBC Nucleated RBC % Sodium Potassium Chloride Carbon Dioxide
[2023-09-26] MEDS: KETOROLAC 15 MG/ML VIAL (*BKC) IV PUSH (13:56)
[2023-09-26 14:00] VITALS: BP 131/77; PULSE 83; RESP 14; TEMP 36.5; O2SAT 98
--- NOTE | 2023-09-26 14:28 | PM.DS ---
DS: Admitting Diagnosis Discharge Date 09/26/2023 Admitting Diagnosis Acute on chronic pancreatitis, alcohol dependence, epigastric abdominal pain, tobacco dependence DS: Discharge Diagnosis Discharge Diagnosis (1) Acute on chronic pancreatitis: Code(s): K85.90 - Acute pancreatitis without necrosis or infection, unspecified; K86.1 - Other chronic pancreatitis Status: Acute (2) Alcohol dependence: Code(s): F10.20 - Alcohol dependence, uncomplicated Status: Acute (3) Epigastric abdominal pain: Code(s): R10.13 - Epigastric pain Status: Acute (4) Tobacco dependence: Code(s): F17.200 - Nicotine dependence, unspecified, uncomplicated Status: Acute (5) Acute hypokalemia: Code(s): E87.6 - Hypokalemia Status: Acute DS: Summary Hospital Course Hospital Course: This is a 27-year-old male patient with a past history of alcohol abuse and pancreatitis. Patient had lived in a sober living home for a while but recently had to leave and lost his job. Subsequently he began binge drinking again. Patient arrived to the emergency department with nausea vomiting epigastric pain was found to have elevated lipase and CT findings pancreatitis. He was admitted IV fluids. Throughout admission he stated that the IV Dilaudid did not help his pain. He got better relief with oral [place]. Additionally utilized ketorolac occasionally pain. Over the last 2 days he stated that his sharp pain is no longer constant it is becoming less frequent. He has increased his diet tolerance to a bland soft in lipase has returned to normal. He was treated with oral and IV potassium due to hypokalemia. Patient plans to return to house with his roommates until he can collect enough money to pay off his debt at the sober living home to be able to get back in. He reports that he did get his job back since being in the hospital. Status at Discharge Cognitive/behavioral status at discharge: Awake alert oriented Functional status at discharge: independent ambulation Overall status at discharge: patient is progressing back to baseline Time Spent with Patient Time attestation: Total time spent providing and/or coordinating discharge services: 35 minutes Time spent: Greater than 30 minutes Exam Const: General: comfortable, no acute distress, well developed, alert, awake and obese Nutritional Appearance: average body habitus and obese Orientation/consciousness: patient oriented x3 HENMT: Head: normal to inspection, normocephalic and atraumatic Ears: hearing grossly normal bilaterally Face/Nose/Sinus: normal facial exam Face and sinus: normal facial exam Eyes: General: appearance normal, both eyes and all related structures Pupils: Equal, round and reactive pupils present EOM: EOMs intact bilaterally Neck: Neck: full ROM, no lymphadenopathy and no JVD Thyroid: thyroid normal Lymphatic: no lymphadenopathy noted Resp: Effort & Inspection: normal respiratory effort and able to speak in complete sentences Auscultation: clear to auscultation bilaterally Cardio: Jugular venous distension: no JVD Rate: regular rate Rhythm: regular rhythm Heart sounds: S1 normal heart sound present and S2 normal heart sound present GI: Inspection: obesity GI Palp: Yes Soft to palpation and Yes Tenderness to palpation present (GI) (Mild epigastric, improved) : General: Yes deferred Skin: Rashes: no rashes Wounds: no wounds Neuro: General: patient oriented x3 and CN's II-XI intact bilaterally Cranial nerves: Yes CN's II-XII intact bilaterally and Yes Equal, round and reactive pupils present Cognition (Neuro): normal cognition Speech: normal speech Gait exam (Neuro): Normal gait present Motor exam (neuro): 5/5 motor strength present throughout Sensory Exam: No Sensory deficit (Neuro) Extrem: General: normal to inspection, full ROM, no joint enlargement and no pedal edema DS: Data Data Completed and Pending Completed s
== END 2023-09-26 15:08 | disposition home or self-care (01) | DRG 282 ==
LOC: ANHED 21:40 → ANH2MED 09-24 10:08
PROVIDERS: Admitting Provider Internal Medicine; Emergency Provider Emergency Medicine; Visit Provider Nurse Practitioner
DX: K85.90 Acute pancreatitis without necrosis or infection, unspecified (principal); K86.1 Other chronic pancreatitis; F10.20 Alcohol dependence, uncomplicated; E87.6 Hypokalemia; E66.9 Obesity, unspecified; Z68.30 Body mass index [BMI] 30.0-30.9, adult
CPT/HCPCS: 36415; 74177; 80053; 81001; 82948; 83690; 83735; 85025; 96361; 96374; 96375; 96376; 99285; A9270; G0378; J1170; J1885; J2270; J2405; J3480; J7030; J7040; J7120; Q9967

== ENCOUNTER 2024-02-23 14:24 | Inpatient (IN) | payer OTHER, SELFPAY ==
[2024-02-23] VITALS (8 sets, daily range): BP systolic 127–153; BP diastolic 80–98; PULSE 65–89; RESP 15–20; TEMP 36.2–36.5; O2SAT 97–100; BMI 22.8
--- NOTE | ~2024-02-23 | US_ITS ---
EXAMINATION: US paracentesis abd w/image DATE: 02/26/2024 10:48 INDICATION: Ascites. TECHNIQUE: The procedure and its risks and benefits were discussed with the patient. Potential risks discussed included bleeding and infection. The skin was prepped and draped in sterile fashion. 1% lid ocaine was used for local anesthesia. Under ultrasound guidance, a 5 Fr catheter with trochar was adv anced into the ascites in the right lower quadrant. Fluid was aspirated into vacuum bottles. The cath eter was removed, and a dressing was applied. There were no immediate complications. FINDINGS: Ultrasound images demonstrate ascites and the catheter within the fluid. IMPRESSION: 1. Successful ultrasound-guided paracentesis yielding 400 mL of dark brownish fluid. Reviewed, dictated and finalized at location A.
--- NOTE | ~2024-02-23 | XR_ITS ---
XR abdomen gastric tube insert INDICATION: Evaluate NG tube position. TECHNIQUE: Limited KUB perform for evaluating NG tube . COMPARISON: No prior studies for comparison. FINDINGS: NG tube tip in the stomach. Dilated small bowel loops, consistent with obstruction. IMPRESSION: 1: NG tube tip in the stomach. Reviewed, dictated and finalized at location B.
--- NOTE | ~2024-02-23 | XR_ITS ---
XR abdomen obstructive series 02/28/2024 08:05 Indication: Ileus Procedure: KUB Comparison: 02/27/2024 Findings: NG tube in the stomach. Dilated small bowel loops are present with air-fluid levels, consis tent with obstruction. The colon appears to be relatively decompressed. Impression: 1: Small bowel obstruction. Reviewed, dictated and finalized at location B. Impression: 1: Small bowel obstruction.
--- NOTE | ~2024-02-23 | CT_ITS ---
EXAMINATION: CT abdomen pelvis w con DATE: 02/23/2024 17:26 INDICATION: Pancreatitis with upper abdominal pain TECHNIQUE: Computed tomography (CT) of the abdomen and pelvis was performed with 100 mL Omnipaque-350 intravenous contrast. Automated exposure control and iterative reconstruction technique were employe d. The dose-length product was 333.20 mGy-cm. COMPARISON: 09/23/2023 FINDINGS: Lung bases are clear. Heart size is normal. No pericardial or pleural effusion. Focal hepatic steatos is at the ligamentum teres. Gallbladder, bilateral adrenal glands and kidneys are normal. Multiple sp lenic calcifications consistent with old granulomatous disease. There is retroperitoneal stranding an d nonloculated acute peripancreatic fluid collection surrounding the tail, body, head and uncinate pr ocess of the pancreas consistent with acute interstitial pancreatitis. No evident necrosis or organiz ed fluid collections to suggest abscess, walled off necrosis or pseudocyst. Bowels including the appe ndix are normal with no obstruction. Partially decompressed bladder is unremarkable. No free intraper itoneal gas or fluid. No pathologically enlarged abdominal or pelvic lymphadenopathy. Mild lumbar dex trocurvature with mild spondylosis. Partially visualized antegrade intramedullary hermann fixation in the visualized proximal left femur. IMPRESSION: 1. Acute interstitial pancreatitis Reviewed, dictated and finalized at location A.
--- NOTE | ~2024-02-23 | XR_ITS ---
XR abdomen/kub 1V Ordering provider: J Carlos Scott MD History: . sbo . Comparison: February 28, 2024 FINDINGS: BOWEL: Slightly dilated small bowel loops are seen in the mid abdomen. Follow-up advised. Nasogastric tube is seen in the stomach. ORGANOMEGALY: None. SIGNIFICANT PATHOLOGIC CALCIFICATIONS: None. OTHER: No free air is seen under the diaphragm. IMPRESSION: Dilated small bowel loops in the mid abdomen. Early or incomplete obstruction is not excluded. Follow -up advised. Reviewed, dictated and finalized at location A. IMPRESSION: Dilated small bowel loops in the mid abdomen. Early or incomplete obstruction i s not excluded. Follow-up advised.
--- NOTE | ~2024-02-23 | XR_ITS ---
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 Oral contrast was administered, and sequential radiographs of the abdomen were obtained until oral contrast was noted to be in the proxi mal colon. COMPARISON: 03/02/2020 and 02/28/2024 FINDINGS: Small amount of gas within a couple borderline dilated loops of small bowel in the left upper quadran t additional small amount of gas and stool scattered throughout the colon. Transit time from the stom ach to proximal colon was approximately 3-4 hours. There is normal mucosal fold pattern throughout th e small bowel. No transition points or persistently dilated loops of small bowel appreciated which in conjunction with the mildly delayed transit time would favor an ileus over obstruction. Partially vi sualized antegrade intramedullary hermann at the left greater trochanter. IMPRESSION: 1. Mildly delayed transit time but without frankly dilated small bowel or discrete transition point w hich would favor ileus over obstruction. Reviewed, dictated and finalized at location A. IMPRESSION: 1. Mildly delayed transit time but without frankly dilated small bowel or discr ete transition point which would favor ileus over obstruction.
--- NOTE | ~2024-02-23 | US_ITS ---
EXAMINATION: US right upper quadrant DATE: 02/25/2024 15:13 INDICATION: pancreatitis TECHNIQUE: Multiple grayscale and Doppler ultrasound images of the right upper quadrant were obtained . COMPARISON: CT abdomen pelvis 02/25/2024, 02/23/2024, 09/23/2023. FINDINGS: Pancreas not well visualized. The liver is normal in size, with normal echogenicity and ech otexture. 3.0 cm smoothly marginated, minimally lobulated hyperechoic lesion in the mid liver near th e gallbladder, probably segment 8. No surface nodularity. Normal hepatopetal flow in the main portal vein. The gallbladder is normal with no abnormal wall thickening, pericholecystic fluid or stones. Th e common bile duct measures 5 mm. There was no sonographic Vázquez sign. Small right pleural effusion. Small volume perihepatic fluid. IMPRESSION: Pancreas not well visualized, likely obscured by inflammatory changes. 3 cm liver mass in segment 8, not well visualized in the prior CT examinations. Recommend MRI of the liver without and with contrast for further characterization. Small right pleural effusion. Small volume ascites. . Reviewed, dictated and finalized at location K. IMPRESSION: Pancreas not well visualized, likely obscured by inflammatory changes. 3 cm liver mass in segment 8, not well visualized in the prior CT examinations. Recommend MRI of the liver without and with contrast for further characterizat ion. Small right pleural effusion. Small volume ascites. .
--- NOTE | ~2024-02-23 | XR_ITS ---
Supine and upright views of the abdomen Clinical history: Small bowel obstruction COMPARISON: 02/29/2024 Findings: NG tube in place. There is decreased small bowel distention. No free air. No abnormal mass lesion or calcification is seen. Osseous structures are intact. Impression: NG tube in place, decreased small bowel distention Reviewed, dictated and finalized at [facility]. Impression: NG tube in place, decreased small bowel distention
--- NOTE | ~2024-02-23 | XR_ITS ---
EXAMINATION: XR abdomen obstructive series DATE: 02/27/2024 13:35 INDICATION: Ileus TECHNIQUE: Supine and upright views of the abdomen. FINDINGS: CT dated 02/25/2024 The visualized lung parenchyma is normal.. There are dilated small bowel loops with differential air- fluid levels, compatible with obstruction. No free air. There is no free air. IMPRESSION: 1. Small bowel obstruction. Reviewed, dictated and finalized at location B. IMPRESSION: 1. Small bowel obstruction.
--- NOTE | ~2024-02-23 | XR_ITS ---
Supine and upright views of the abdomen Clinical history: Small bowel obstruction COMPARISON: 03/01/2024 Findings: NG tube in place. No free air evident. There is some air distended bowel loops particularly on the left upper quadrant. No abnormal mass lesion or calcification is seen. Osseous structures are intact. Impression: NG tube in place. There are distended bowel loops left upper quadrant could reflect residual bowel ob struction versus ileus. Reviewed, dictated and finalized at location M. Impression: NG tube in place. There are distended bowel loops left upper quadrant could ref lect residual bowel obstruction versus ileus.
--- NOTE | ~2024-02-23 | CT_ITS ---
EXAMINATION: CT abdomen pelvis wo con DATE: 02/25/2024 08:49 INDICATION: Pancreatitis TECHNIQUE: Computed tomography (CT) of the abdomen and pelvis was performed without intravenous contr ast. Automated exposure control and iterative reconstruction technique were employed. The dose-length product was 466.77 mGy-cm. COMPARISON: 02/23/2024 FINDINGS: New small bilateral posterior layering pleural effusions with dependent atelectasis in the bilateral lower lobes. Heart size is normal. No pericardial effusion. A few hepatic and splenic calcific lesion s consistent with old granulomatous disease. High attenuation vicariously excreted contrast within th e otherwise normal-appearing gallbladder likely related to the earlier contrast-enhanced CT. Bilatera l adrenal glands and kidneys are normal. There is significant progression of retroperitoneal inflamma tory stranding and nonloculated fluid surrounding the pancreas and extending inferiorly along the jayna ateral pararenal spaces and paracolic gutters consistent with worsening acute interstitial pancreatit is. There is also new deeper bilateral peripancreatic stranding as well as a small to moderate amount of ascites scattered throughout the abdomen and pelvis. The pancreas is difficult to distinguish fro m the stranding and fluid. No evident abscess or other loculated fluid collections identified. Normal appendix. There are multiple mildly dilated gas-filled loops of small bowel in the abdomen which kimberly ear to gradually taper distally without a discrete transition point to suggest obstruction in this mo st likely represents a reactive ileus secondary to the acute pancreatitis. Small to moderate amount o f gas and stool scattered throughout the colon. Increased density of the urine in the otherwise eduardo l bladder consistent with additional residual urinary excreted contrast. No free intraperitoneal gas. No pathologically enlarged abdominal or pelvic lymphadenopathy. Partially visualized old mid diaphys eal fracture of the left femur with antegrade intramedullary hermann fixation. IMPRESSION: 1. Significant progression of retroperitoneal inflammatory stranding and fluid centered around the pa ncreas consistent with worsening acute interstitial pancreatitis. 2. New small bilateral pleural effusions and small to moderate amount of ascites in the abdomen and p romero likely related to acute pancreatitis. 3. Multiple mildly dilated loops of small bowel without discrete transition point most likely represe nting a secondary reactive ileus. Reviewed, dictated and finalized at location A. IMPRESSION: 1. Significant progression of retroperitoneal inflammatory stranding and fluid centered around the pancreas consistent with worsening acute interstitial pancr eatitis. 2. New small bilateral pleural effusions and small to moderate amount of ascite s in the abdomen and pelvis likely related to acute pancreatitis. 3. Multiple mildly dilated loops of small bowel without discrete transition poi nt most likely representing a secondary reactive ileus.
[2024-02-23 16:31] LABS: Basophils Percent Auto 0.3 % (0.2-1.2); Eosinophils Percent Auto 0.1 % (0-4.4); Hematocrit 47.6 % (42.0-52.0); Hemoglobin 16.7 g/dL (14.0-18.0); Immature Granulocyte Absolute 0.11 K/mm3 (0.00-0.031); Immature Granulocyte Percent A 0.7 % (0-0.5); Lymphocytes Absolute Auto 1.22 K/mm3 (0.9-3.2); Mean Corpuscular HGB Conc 35.1 g/dl (32-36); Mean Corpuscular Hemoglobin 32.5 pg (26-34); Mean Corpuscular Volume 92.6 fl (80-100); Mean Platelet Volume 10.6 fl (7.4-10.4); Monocytes Absolute Auto 0.7 K/mm3 (0.1-0.6); Monocytes Percent Auto 4.3 % (2.6-8.5); Neutrophils Absolute Auto 13.2 K/mm3 (1.3-6.7); Neutrophils Percent Auto 86.6 % (45.5-73.1); Platelet Count Result 307 k/mm3 (150-375); Red Blood Count 5.14 M/mm3 (4.6-6.20); White Blood Count 15.2 K/mm3 (4.5-10.0)
[2024-02-23 16:43] LABS: Alanine Aminotransferase 26 U/L (6-50); Albumin Level 4.6 g/dL (3.5-5.1); Alkaline Phosphatase 95 U/L (38-126); Anion Gap 15 mmol/L (4-12); Aspartate Amino Transferase 23 U/L (17-59); Bilirubin,Total 0.7 mg/dL (0.2-1.3); Blood Urea Nitrogen 7 mg/dL (9-20); Calcium 9.1 mg/dL (8.4-10.2); Carbon Dioxide 25 mmol/L (22-30); Chloride 99 mmol/L (98-107); Estimated CRCL calculation 156 ml/min; Estimated Glomerular Filt Rate > 60; Glucose 121 mg/dL (65-110); Lipase 1104 U/L (23-300); Sodium 139 mmol/L (137-145)
[2024-02-23 17:22] LABS: Add Urine Microscopic? YES; Appearance Urine Clear (Clear); Bacteria Urine None Seen /hpf; Bilirubin Urine Negative (Negative); Blood Urine Negative (Negative); Color Urine Yellow (Yellow); Glucose Urine UA Negative (Negative); Ketones Urine 1+ mg/dL (Negative); Leukocyte Esterase Ur Negative LEU/UL (Negative); Nitrate Urine Negative (Negative); Non Pathogenic Casts 0-2; Protein Urine Trace mg/dL (Negative); RBC Urine 0-2 /hpf (0-2); Specific Grav Ur 1.025 (1.001-1.035); Squamous Epithelial Cell Urine None Seen /hpf (Few); Urobilinogen Urine 0.2 mg/dL (<2.0); WBC Urine 0-5 /hpf (0-3)
[2024-02-23] MEDS: MORPHINE SULFATE (*CRX) 4 MG/ML INJ 6 MG IV PUSH (17:28)
[2024-02-23] MEDS: LACTATED RINGERS 1,000 ML 999 ML IV CONT (17:30)
--- NOTE | 2024-02-23 17:33 | ED.ABDPAIN ---
HPI - Abdominal Pain General Chief Complaint: Abdominal Pain Stated Complaint: Abdominal pain Time Seen by Provider: 02/23/24 16:16 History of Present Illness HPI narrative: 28-year-old male with a history of pancreatitis from alcohol abuse presenting to the emergency department today with a chief complaint of epigastric abdominal pain. He states feels very similar to his last pancreatitis episode. States he drinks approximately 1/5 of liquor every other day. No history of withdrawal or present intoxication on assessment. States he woke up with the pain this morning. Is in the epigastrium but does not radiate. No associated nausea, vomiting but does have diarrhea. No chest pain, shortness a breath, fever, chills. Was otherwise in his normal state of health. No trauma or recent injuries. Related Data Home Medications Medication Instructions Recorded Confirmed No Home Medications 02/23/24 02/23/24 Allergies Allergy/AdvReac Type Severity Reaction Status Date / Time No Known Allergies Allergy Unverified 07/19/17 21:28 Review of Systems Review of Systems: All systems reviewed & are unremarkable except as noted in HPI and below PMFSH Past Medical History Medical History Alcohol abuse Pancreatitis Surgical History Surgical History History of open reduction and internal fixation (ORIF) procedure Left femur. Family History Family History Mother Cerebrovascular accident Hypertension Social History Social History Social History: Surrogate medical decision maker: Ember Jordan, friend. Code status: Full code. Smoking status: Current every day smoker Tobacco type: e-cigarettes/vaping Alcohol intake: current Drinks per week: 40 Alcohol use details: A 5th of alcohol every 2 days. Substance use: former Substance use type: marijuana Last use: 02/22/24 Do You Feel Safe in your Home?: Yes Lack of Transportation: No Lack of Food: Never True Current Housing: I Have Housing Concerned About Future Housing: No Difficulty Paying Gas/Electric Bills: No Difficulty Paying for Meds: No Currently Unemployed: YES Education: Grade School Difficulty w/ Childcare or Family Care: No Spiritual care concerns: No Exam Narrative: GENERAL: [Well-appearing, well-nourished, and in no acute distress.] HEAD: [Normocephalic, atraumatic.] EYES: [PERRLA and EOMI.] ENT: Nares clear, no rhinorrhea or epistaxis. Mucous membranes moist. NECK: Supple. CHEST: [Clear to auscultation. No respiratory distress.] HEART: [Regular rate and rhythm]. No murmur heard. [Normal peripheral pulses.] ABDOMEN: [Soft, nondistended], tender to palpation in the epigastrium, negative Vázquez, no peritonitis, [No rigidity or guarding] EXTREMITIES: Normal range of motion. [No edema.] SKIN: Warm, dry, no rash. NEURO: [No focal deficits]. Alert and oriented [x3.] PSYCH: [Normal mood and affect.] Course Vital Signs Vital signs: Vital Signs Temperature 36.2 C L 02/23/24 14:29 Pulse Rate 73 02/23/24 14:29 Respiratory Rate 16 02/23/24 14:29 Blood Pressure 127/80 02/23/24 14:29 Pulse Oximetry 100 02/23/24 14:29 Temperature 36.5 C 02/23/24 20:08 Pulse Rate 76 02/23/24 20:08 Respiratory Rate 18 02/23/24 20:15 Blood Pressure 142/98 H 02/23/24 20:08 Pulse Oximetry 99 02/23/24 20:08 Oxygen Delivery Room Air 02/23/24 20:15 MDM - Abdominal Pain MDM Narrative Medical decision making narrative: 28-year-old male with a history of alcohol abuse and alcoholic pancreatitis presenting for epigastric abdominal pain. Vital he is stable without any fever, tachycardia, blood pressure concerns or hypoxia. Examination shows a soft nond
[2024-02-23] MEDS: MORPHINE SULFATE (*CRX) 4 MG/ML INJ IV PUSH (19:26)
--- NOTE | 2024-02-23 20:00 | PM.IMHP ---
H&P: HPI History of Present Illness Date/Time: 02/23/24 20:00 Chief Complaint: Abdominal pain. Narrative: This is a 28-year-old male with history of alcohol abuse and pancreatitis who presented to the emergency department via private vehicle for evaluation of abdominal pain. The patient provides the following history. He awoke with severe upper abdominal pain this morning which he has difficulties describing. It has been constant since that time. The pain does not radiate. Associated symptoms include nausea and vomiting. He has had similar symptoms with prior episodes of pancreatitis. He continues to drink, a about a 5th of alcohol every 2 days. He has never had any significant alcohol withdrawal symptoms or alcohol withdrawal seizures however he feels a bit anxious and shaky at this time. He denies fever, sweats, hallucinations, hematemesis, melena, and hematochezia. In the ED: He was afebrile on arrival with stable vital signs. Labs were significant for WBC count of 15.2, BUN 7, creatinine 0.60, anion gap 15, lipase 1104. Urine was positive for 1+ ketones. CT of the abdomen pelvis showed acute interstitial pancreatitis. He was given a L of lactated Ringer's and morphine 4 mg IV and he is being admitted in this setting for further treatment. Review of Systems Review of Systems: 12 systems were reviewed and are negative except for as per HPI. [facility] Past Medical History Medical History (Updated 02/23/24 @ 20:02 by Negra Seaman PA-C) Alcohol abuse Pancreatitis Surgical History Surgical History (Updated 02/23/24 @ 20:01 by Negra Seaman PA-C) History of open reduction and internal fixation (ORIF) procedure Left femur. Family History Family History Mother Cerebrovascular accident Hypertension Social History Social History (Updated 02/23/24 @ 20:18 by Negra Seaman PA-C) Social History: Surrogate medical decision maker: Ember Jordan, friend. Code status: Full code. Smoking status: Current every day smoker Tobacco type: e-cigarettes/vaping Alcohol intake: current Drinks per week: 40 Alcohol use details: A 5th of alcohol every 2 days. Substance use: former Substance use type: marijuana Last use: 9/23/24 Do You Feel Safe in your Home?: Yes Lack of Transportation: No Lack of Food: Never True Current Housing: I Have Housing Concerned About Future Housing: No Difficulty Paying Gas/Electric Bills: No Difficulty Paying for Meds: No Currently Unemployed: YES Education: Grade School Difficulty w/ Childcare or Family Care: No Spiritual care concerns: No Meds Home Medications and Allergies Home Medications Medication Instructions Recorded Confirmed Type No Home Medications 02/23/24 02/23/24 History Allergies Allergy/AdvReac Type Severity Reaction Status Date / Time No Known Allergies Allergy Unverified 07/19/17 21:28 Vital Signs Vital Signs - 24 hr 02/23/24 14:29 02/23/24 16:42 02/23/24 17:34 Temperature 97.2 F L Pulse Rate 73 65 89 Respiratory Rate 16 15 15 Blood Pressure 127/80 138/98 H 153/98 H Pulse Oximetry 100 100 98 02/23/24 18:01 02/23/24 18:31 02/23/24 19:01 Temperature Pulse Rate 75 73 84 Respiratory Rate 20 19 18 Blood Pressure 135/95 H 134/91 H 143/98 H Pulse Oximetry 99 97 97 Exam Narrative: General: Ill-appearing male supine in bed in moderate pain. Weight: 74.5 kg. BMI: 22.9. HEENT: PERRL, EOMI. Sclera anicteric. Tacky mucous membranes. Neck: Supple. Respiratory: Lungs are clear to auscultation bilaterally. Cardiovascular: Regular rate and rhythm with S1-S2. Gastrointestinal: Abdomen is soft and nondistended with hypoactive bowel sounds.He is tender to palpation throughout the upper abdomen. No guarding or rebound tenderness. Skin: Warm and dry. No rash or lesions on limited exam. Extremities: No cyanosis, clubbing, or ed
[2024-02-23] MEDS: HYDROmorphone HCL INJ (*CRX) 1 MG/ML SYR IV PUSH ×2 (20:32→23:11)
[2024-02-23] MEDS: LACTATED RINGERS 1,000 ML 150 ML IV CONT (20:36)
[2024-02-23 20:39] LABS: Triglycerides 198 mg/dL (<150)
[2024-02-23] MEDS: ONDANSETRON INJ 4 MG/2 ML VIAL IV PUSH (21:28)
[2024-02-23] MEDS: THIAMINE HCL 200 MG/2 ML VIAL 100 MG IV PUSH (21:28)
[2024-02-24] MEDS: HYDROmorphone HCL INJ (*CRX) 1 MG/ML SYR 0.5 MG IV PUSH ×3 (00:32→08:04)
[2024-02-24] MEDS: HYDROmorphone HCL INJ (*CRX) 1 MG/ML SYR IV PUSH ×5 (02:07→16:37)
[2024-02-24] MEDS: ONDANSETRON INJ 4 MG/2 ML VIAL IV PUSH ×4 (02:58→19:34)
[2024-02-24] MEDS: chlordiazePOXIDE (*CRX) 10 MG CAPSULE PO ×3 (03:42→19:34)
[2024-02-24] MEDS: LACTATED RINGERS 1,000 ML 150 ML IV CONT ×3 (03:42→21:50)
[2024-02-24 03:52] VITALS: BP 151/101; PULSE 73; RESP 18; TEMP 36.5; O2SAT 96
[2024-02-24 05:27] LABS: Hematocrit 54.5 % (42.0-52.0); Hemoglobin 19.2 g/dL (14.0-18.0); Mean Corpuscular HGB Conc 35.2 g/dl (32-36); Mean Corpuscular Hemoglobin 32.5 pg (26-34); Mean Corpuscular Volume 92.2 fl (80-100); Mean Platelet Volume 11.2 fl (7.4-10.4); Platelet Count Result 314 k/mm3 (150-375); Red Blood Count 5.91 M/mm3 (4.6-6.20); Red Cell Distribution Width 15.2 % (11.5-14.5); White Blood Count 25.3 K/mm3 (4.5-10.0)
[2024-02-24 05:42] LABS: Alanine Aminotransferase 20 U/L (6-50); Albumin Level 3.8 g/dL (3.5-5.1); Alkaline Phosphatase 82 U/L (38-126); Anion Gap 10 mmol/L (4-12); Aspartate Amino Transferase 21 U/L (17-59); Bilirubin,Total 1.7 mg/dL (0.2-1.3); Blood Urea Nitrogen 8 mg/dL (9-20); Calcium 8.6 mg/dL (8.4-10.2); Carbon Dioxide 26 mmol/L (22-30); Chloride 94 mmol/L (98-107); Estimated CRCL calculation 167 ml/min; Estimated Glomerular Filt Rate > 60; Glucose 138 mg/dL (65-110); Sodium 130 mmol/L (137-145)
[2024-02-24 05:45] LABS: Lipase 2749 U/L (23-300)
[2024-02-24 07:21] VITALS: O2SAT 98
[2024-02-24] MEDS: ENOXAPARIN 40 MG/0.4 ML SYRINGE SUB-Q (08:04)
[2024-02-24] MEDS: THIAMINE HCL 100 MG TABLET PO (08:04)
[2024-02-24] MEDS: FOLIC ACID 1 MG TABLET PO (08:04)
[2024-02-24] MEDS: LORazepam (*CRX) 1 MG TABLET 2 MG PO (08:05)
[2024-02-24 09:10] LABS: Lactic Acid Reflex 3.1 mmol/L (0.7-2.0)
[2024-02-24] MEDS: PIPERACILLN/TAZ 3.375GM/NS50ML 3.375 GM/50 ML BAG IVPB ×2 (10:36→17:58)
--- NOTE | 2024-02-24 11:28 | PM.IMPN ---
Progress Note: A&P Assessment and Plan (1) Pancreatitis: Code(s): K85.90 - Acute pancreatitis without necrosis or infection, unspecified Status: Acute Assessment and Plan: -WBC 25.3. Added Zosyn 3.375 gm IVPB q 6. -LR @ 150 ml/hr. -[facility] protocol -Bowel rest and IV fluids. - IV Hydromorphone. - Monitor labs. - Add Pantoprazole 40 mg PO daily. (2) Alcohol abuse: Code(s): F10.10 - Alcohol abuse, uncomplicated Status: Acute Assessment and Plan: -[facility] protocol -monitor symptoms. -Changed Librium 10 mg PO q6. Subjective Date/time seen: 02/24/24 11:28 Interval history: Patient reports abdominal pain that is an 8 , pain is constant, and aching. Patient reports nausea without vomiting. Patient denies palpitations or shortness of breath. Review of Systems Review of Systems: All systems reviewed & are unremarkable except as noted in HPI and below Exam Const: General: uncomfortable Eyes: Sclera: sclerae normal Neck: Neck: supple Resp: Effort & Inspection: normal respiratory effort Auscultation: clear to auscultation bilaterally Cardio: Rate: regular rate Rhythm: regular rhythm GI: GI Palp: Yes Soft to palpation Other: hypoactive bowel sounds. Tender to palpation upper abdomen. Skin: General skin exam: no rashes or lesions noted Other: Warm and dry Psych: Mental Status: mental status grossly normal Affect: normal affect Objective Data Vital Signs Vital Signs: Vital Signs - 24 hr 02/23/24 14:29 02/23/24 16:42 02/23/24 17:34 Temperature 97.2 F L Pulse Rate 73 65 89 Respiratory Rate 16 15 15 Blood Pressure 127/80 138/98 H 153/98 H Pulse Oximetry 100 100 98 Oxygen Delivery Fraction of Inspired Oxygen 02/23/24 18:01 02/23/24 18:31 02/23/24 19:01 Temperature Pulse Rate 75 73 84 Respiratory Rate 20 19 18 Blood Pressure 135/95 H 134/91 H 143/98 H Pulse Oximetry 99 97 97 Oxygen Delivery Fraction of Inspired Oxygen 02/23/24 20:08 02/23/24 20:15 02/24/24 03:52 Temperature 97.7 F 97.7 F Pulse Rate 76 73 Respiratory Rate 18 18 18 Blood Pressure 142/98 H 151/101 H Pulse Oximetry 99 96 Oxygen Delivery Room Air Fraction of Inspired Oxygen 02/24/24 07:21 Temperature Pulse Rate Respiratory Rate Blood Pressure Pulse Oximetry 98 Oxygen Delivery Room Air Fraction of Inspired Oxygen 21 Intake/Output Intake/Output: Intake & Output 02/21/24 02/22/24 02/23/24 02/24/24 23:59 23:59 23:59 23:59 Intake Total 1000 1000 Output Total 1200 Balance 1000 -200 Meds/Results Medications: Active Medications Generic Name Dose Route Start Last Admin Trade Name Freq PRN Reason Stop Dose Admin Acetaminophen 650 mg 02/23/24 20:26 Acetaminophen 325 Mg Tablet PO Q6H PRN Mild Pain (1-3) or Fever Chlordiazepoxide HCl 10 mg 02/23/24 20:36 02/24/24 03:42 Chlordiazepoxide (*Crx) 10 Mg Capsule PO 10 mg Q8H PRN Administration Withdrawal & elevated CIWA Enoxaparin Sodium 40 mg 02/24/24 09:00 02/24/24 08:04 Enoxaparin 40 Mg/0.4 Ml Syringe SUB-Q 40 mg DAILY CECY Administration Folic Acid 1 mg 02/24/24 09:00 02/24/24 08:04 Folic Acid 1 Mg Tablet PO 1 mg DAILY CECY Administration Hydromorphone HCl 1 mg 02/23/24 20:14 02/24/24 10:35 Hydromorphone Hcl Inj (*Crx) 1 Mg/Ml Syr IV PUSH 1 mg Q3H PRN Administration Pain Rated 7-10 Hydromorphone HCl 0.5 mg 02/23/24 20:26 02/24/24 06:26 Hydromorphone Hcl Inj (*Crx) 1 Mg/Ml Syr IV PUSH 0.5 mg Q3H PRN Administration Pain Rated 4-6 Lactated Ringer's 1,000 mls @ 150 mls/hr 02/23/24 20:15 02/24/24 03:42 Lr - Lactated Ringers Iv IV CONT 150 mls/hr .Q6H40M CECY Administration Piperacillin/Tazobactam/Dextrose 3.375 gm in 50 mls @ 100 mls/hr 02/24/24 10:00 02/24/24 10:36 Zosyn 3.375 Gm/Ns 50 Ml IVPB 100 mls/hr Q6HR CECY Administration Lorazepam 2 mg 02/23/24 20:36 0
[2024-02-24 11:55] LABS: Reflex Lactic Acid Yes or No Add Lactic
[2024-02-24 12:20] LABS: Lactic Acid 3.5 mmol/L (0.7-2.0)
[2024-02-24] MEDS: LORazepam (*CRX) 1 MG TABLET PO ×2 (13:35→22:08)
[2024-02-24 16:49] LABS: Lactic Acid Reflex 4.3 mmol/L (0.7-2.0)
[2024-02-24 17:27] VITALS: BP 130/98; PULSE 128
[2024-02-24] MEDS: HYDROmorphone HCL INJ (*CRX) 2 MG/ML VIAL IV PUSH ×2 (19:35→22:08)
[2024-02-24 21:17] VITALS: O2SAT 93
[2024-02-24 22:00] VITALS: BP 131/97; PULSE 123; RESP 18; TEMP 36.3; O2SAT 92
[2024-02-24 23:37] LABS: Lactic Acid Reflex 3.4 mmol/L (0.7-2.0)
[2024-02-25] VITALS (14 sets, daily range): BP systolic 122–134; BP diastolic 77–95; PULSE 86–134; RESP 16–18; TEMP 36.7–37.2; O2SAT 89–95
[2024-02-25] MEDS: LORazepam (*CRX) 1 MG TABLET 2 MG PO ×3 (01:03→23:36)
[2024-02-25] MEDS: chlordiazePOXIDE (*CRX) 10 MG CAPSULE PO ×4 (01:03→20:18)
[2024-02-25] MEDS: HYDROmorphone HCL INJ (*CRX) 2 MG/ML VIAL IV PUSH ×6 (01:03→23:38)
[2024-02-25 02:21] LABS: Reflex Lactic Acid Yes or No Add Lactic
[2024-02-25 02:44] LABS: Hematocrit 57.4 % (42.0-52.0); Hemoglobin 20.4 g/dL (14.0-18.0); Mean Corpuscular HGB Conc 35.5 g/dl (32-36); Mean Corpuscular Hemoglobin 32.8 pg (26-34); Mean Corpuscular Volume 92.3 fl (80-100); Platelet Count Result 270 k/mm3 (150-375); Red Blood Count 6.22 M/mm3 (4.6-6.20); Red Cell Distribution Width 15.9 % (11.5-14.5); White Blood Count 49.2 K/mm3 (4.5-10.0)
[2024-02-25] MEDS: HYDROmorphone HCL INJ (*CRX) 1 MG/ML SYR IV PUSH ×3 (02:45→21:15)
[2024-02-25 02:53] LABS: Lactic Acid 3.7 mmol/L (0.7-2.0)
[2024-02-25 02:55] LABS: Alanine Aminotransferase 17 U/L (6-50); Albumin Level 3.6 g/dL (3.5-5.1); Alkaline Phosphatase 65 U/L (38-126); Anion Gap 9 mmol/L (4-12); Aspartate Amino Transferase 30 U/L (17-59); Bilirubin,Total 2.7 mg/dL (0.2-1.3); Blood Urea Nitrogen 27 mg/dL (9-20); Calcium 8.5 mg/dL (8.4-10.2); Carbon Dioxide 23 mmol/L (22-30); Chloride 94 mmol/L (98-107); Estimated CRCL calculation 56 ml/min; Estimated Glomerular Filt Rate 43; Glucose 138 mg/dL (65-110); Potassium 5.6 mmol/L (3.4-5.0); Sodium 126 mmol/L (137-145)
[2024-02-25 03:05] LABS: Lipase 2682 U/L (23-300)
[2024-02-25 03:08] LABS: Band Neutrophils Percent 9 % (0-6); Monocytes Absolute Manual 1.47 K/mm3 (0.1-0.90); Monocytes Percent Manual 3 % (3-9); Neutrophils Absolute Manual 47.72 K/mm3 (1.3-6.7); Neutrophils Percent Manual 88 % (46-73); Platelet Estimate Adequate (Adequate); Total Cells Counted 100
[2024-02-25 03:09] LABS: Anisocytosis 1+; Macrocytosis 1+ (NORMAL); Schistocytes None Seen
[2024-02-25] MEDS: ONDANSETRON INJ 4 MG/2 ML VIAL IV PUSH ×4 (05:11→23:37)
--- NOTE | 2024-02-25 07:23 | ECG_ITS ---
Test Date: 2024-02-25 09:07:03 Measurements Intervals Sarah Rate: 125 P: 47 OK: 169 QRS: 71 QRSD: 84 T: 15 QT: 271 QTc: 392 Interpretive Statements SINUS TACHYCARDIA LOW QRS VOLTAGE IN PRECORDIAL LEADS CANNOT R/O SEPTAL INFARCT, AGE INDETERMINATE BORDERLINE ST-T WAVE ABNORMALITY- INFERIOR LEADS BASELINE ARTIFACT- I, III, AVR, AVL, AVF, V1, V4 ABNORMAL ECG No previous ECG available for comparison Electronically Signed On 02-25-2024 09:11:50 CDT by Zaid Dillon D.O.
[2024-02-25] MEDS: ALBUTEROL SULFATE NEB 2.5 MG/3 ML INH INHALATION (07:39)
[2024-02-25] MEDS: SODIUM CHLORIDE 0.9% IV 1,000 ML 200 ML IV CONT ×3 (07:55→20:22)
[2024-02-25] MEDS: SODIUM BICARBONATE 8.4% 50 MEQ/50 ML SYRINGE IV PUSH (07:55)
[2024-02-25] MEDS: ENOXAPARIN 40 MG/0.4 ML SYRINGE SUB-Q (08:11)
[2024-02-25] MEDS: THIAMINE HCL 100 MG TABLET PO (08:11)
[2024-02-25] MEDS: PANTOPRAZOLE 40 MG TABLET PO (08:11)
[2024-02-25] MEDS: FOLIC ACID 1 MG TABLET PO (08:11)
[2024-02-25] MEDS: LORazepam (*CRX) 1 MG TABLET PO ×3 (08:12→18:13)
[2024-02-25 10:17] LABS: Albumin Level 3.3 g/dL (3.5-5.1); Anion Gap 9 mmol/L (4-12); Blood Urea Nitrogen 34 mg/dL (9-20); Calcium 8.1 mg/dL (8.4-10.2); Carbon Dioxide 26 mmol/L (22-30); Chloride 93 mmol/L (98-107); Creatine Kinase 25 U/L (55-170); Estimated CRCL calculation 60 ml/min; Estimated Glomerular Filt Rate 45; Glucose 146 mg/dL (65-110); Phosphorus 4.4 mg/dL (2.5-4.5); Potassium 4.5 mmol/L (3.4-5.0); Sodium 128 mmol/L (137-145)
[2024-02-25 10:36] LABS: Procalcitonin 2.8 ng/mL
[2024-02-25 10:41] LABS: Add Urine Microscopic? YES; Appearance Urine Turbid (Clear); Bacteria Urine Rare /hpf; Bilirubin Urine 1+ (Negative); Blood Urine Negative (Negative); Color Urine Dark Yellow (Yellow); Glucose Urine UA Negative (Negative); Hyaline Casts Urine Present /lpf; Ketones Urine Trace mg/dL (Negative); Leukocyte Esterase Ur Negative LEU/UL (Negative); Need Manual Microscopic Reviewed; Nitrate Urine Positive (Negative); Non Pathogenic Casts >20; Protein Urine 2+ mg/dL (Negative); Specific Grav Ur 1.032 (1.001-1.035); Squamous Epithelial Cell Urine Moderate /hpf (Few); WBC Urine 0-5 /hpf (0-3)
[2024-02-25 11:01] LABS: Eosinophil Urine None Seen % (None Seen)
[2024-02-25 11:02] LABS: Urine Eos QC 2nd Tech Confirmed
[2024-02-25 11:11] LABS: CRP 36.3 mg/dL (<1.0)
[2024-02-25 11:15] LABS: Creatinine Urine 334.1 mg/dL
[2024-02-25 11:18] LABS: Urea Random Urine 374 MG/DL
[2024-02-25 11:19] LABS: Sodium Urine Random 25 meq/L
[2024-02-25 11:23] LABS: Creatinine Urine 337.5 mg/dL; Total Protein Urine Random 34 mg/dL
--- NOTE | 2024-02-25 12:05 | P.CONNP_ITS ---
Assessment and Plan Assessment and plan (1) LARRY (acute kidney injury): Code(s): N17.9 - Acute kidney failure, unspecified Status: Acute Assessment and Plan: * normal renal function at baseline on admission * noted significant increase in creatinine to 1.9mg/dl today (over 24 hours) * associated with mild hyperkalemia -- s/p medical management * suspect multifactorial etiology: * prerenal factors * contrast exposure (CT A/P with contrast on 02/22) * third spacing from pancreatitis * infection (?) * evaluation to date noted: * urine electrolytes prerenal * urine eosinophils negative * CT scan with evidence of obstruction in kidneys * CPK low * agree with more aggressive IVF resuscitation with normal saline * follow trend of repeat labs and UOP (2) Acute alcoholic pancreatitis: Qualifiers: Acute pancreatitis complication: no infection or necrosis Qualified Code(s): K85.20 - Alcohol induced acute pancreatitis without necrosis or infection Code(s): K85.20 - Alcohol induced acute pancreatitis without necrosis or infection Status: Acute Assessment and Plan: * as noted by presentation. elevated lipase, and CT scan findings * felt to be secondary to alcohol abuse * normal gallbladder by CT scan * triglyceride level within reason * concerning that WBC higher, elevated H/H, and now LARRY * repeat CT scan A/P results noted - significant progression of retroperitoneal inflammatory stranding and fluid centered around the pancreas consistent with worsening acute interstitial pancreatitis. Also with new small bilateral pleural effusions and small to moderate amount of ascites in the abdomen and pelvis -- this suggests an element of 3rd spacing present * RUQ ultrasound ordered * NPO and on IVFs * pain control * GI consulted * continue supportive therapy (3) Hyponatremia: Code(s): E87.1 - Hypo-osmolality and hyponatremia Status: Acute Assessment and Plan: * sodium normal on admission * now down to 126mmol/L by recent labs * likely secondary to LARRY/ARF and 3rd spacing as evidence by recent imaging * follow trend with current interventions (4) SIRS (systemic inflammatory response syndrome): Code(s): R65.10 - Systemic inflammatory response syndrome (SIRS) of non-infectious origin without acute organ dysfunction Status: Acute Assessment and Plan: * as noted on admission with elevated WBC, tachycardia, and lactic acidosis * WBC up to 49,0000 today * lactic better * repeat imaging noted * follow culture data * empiric antibiotics at this time * follow hemodynamics (5) Ileus: Code(s): K56.7 - Ileus, unspecified Status: Acute Assessment and Plan: * recent CT scan with multiple mildly dilated loops of small bowel without discrete transition point most likely representing a secondary reactive ileus * remains NPO * GI consulted (6) Alcohol abuse: Code(s): F10.10 - Alcohol abuse, uncomplicated Status: Acute Assessment and Plan: * known history of alcoholism * on thiamine and folate * monitoring for withdrawal: * on CIWA protocol started * on librium * monitor symptoms closely since on benzodiazepines and narcotics Discussed case with Dr. Orr and family at bedside. I will continue to follow the patient with you while he remains hospitalized and make further recommendations as deemed necessary. Thank you for allowing me to participate in the care of th
--- NOTE | 2024-02-25 12:05 | PM.CNNEP ---
Assessment and Plan Assessment and plan (1) LARRY (acute kidney injury): Code(s): N17.9 - Acute kidney failure, unspecified Status: Acute Assessment and Plan: normal renal function at baseline on admission noted significant increase in creatinine to 1.9mg/dl today (over 24 hours) associated with mild hyperkalemia -- s/p medical management suspect multifactorial etiology: prerenal factors contrast exposure (CT A/P with contrast on 02/22) third spacing from pancreatitis infection (?) evaluation to date noted: urine electrolytes prerenal urine eosinophils negative CT scan with evidence of obstruction in kidneys CPK low agree with more aggressive IVF resuscitation with normal saline follow trend of repeat labs and UOP (2) Acute alcoholic pancreatitis: Qualifiers: Acute pancreatitis complication: no infection or necrosis Qualified Code(s): K85.20 - Alcohol induced acute pancreatitis without necrosis or infection Code(s): K85.20 - Alcohol induced acute pancreatitis without necrosis or infection Status: Acute Assessment and Plan: as noted by presentation. elevated lipase, and CT scan findings felt to be secondary to alcohol abuse normal gallbladder by CT scan triglyceride level within reason concerning that WBC higher, elevated H/H, and now LARRY repeat CT scan A/P results noted - significant progression of retroperitoneal inflammatory stranding and fluid centered around the pancreas consistent with worsening acute interstitial pancreatitis. Also with new small bilateral pleural effusions and small to moderate amount of ascites in the abdomen and pelvis -- this suggests an element of 3rd spacing present RUQ ultrasound ordered NPO and on IVFs pain control GI consulted continue supportive therapy (3) Hyponatremia: Code(s): E87.1 - Hypo-osmolality and hyponatremia Status: Acute Assessment and Plan: sodium normal on admission now down to 126mmol/L by recent labs likely secondary to LARRY/ARF and 3rd spacing as evidence by recent imaging follow trend with current interventions (4) SIRS (systemic inflammatory response syndrome): Code(s): R65.10 - Systemic inflammatory response syndrome (SIRS) of non-infectious origin without acute organ dysfunction Status: Acute Assessment and Plan: as noted on admission with elevated WBC, tachycardia, and lactic acidosis WBC up to 49,0000 today lactic better repeat imaging noted follow culture data empiric antibiotics at this time follow hemodynamics (5) Ileus: Code(s): K56.7 - Ileus, unspecified Status: Acute Assessment and Plan: recent CT scan with multiple mildly dilated loops of small bowel without discrete transition point most likely representing a secondary reactive ileus remains NPO GI consulted (6) Alcohol abuse: Code(s): F10.10 - Alcohol abuse, uncomplicated Status: Acute Assessment and Plan: known history of alcoholism on thiamine and folate monitoring for withdrawal: on CIWA protocol started on librium monitor symptoms closely since on benzodiazepines and narcotics Discussed case with Dr. Orr and family at bedside. I will continue to follow the patient with you while he remains hospitalized and make further recommendations as deemed necessary. Thank you for allowing me to participate in the care of this patient. History of Present Illness Reason for Consult Consult date: 02/25/24 Reason for consult: acute renal failure Chief Complaint Chief complaint: Acute Interstitial Pancreatitis History of Present Illness Narrative: Most of the information I obtained is from review of the electronic medical record as well as discussion with the physician/ nurses involved in the patient's care as the patient just received pain medications so it is difficult for me to get a full and complete h
--- NOTE | 2024-02-25 13:26 | PM.IMPN ---
Progress Note: A&P Assessment and Plan (1) Acute alcoholic pancreatitis: Code(s): K85.20 - Alcohol induced acute pancreatitis without necrosis or infection Status: Acute Assessment and Plan: Patient presents with abdominal pain and found to have pancreatitis. Lipase 1100. CT A/P with contrast showing acute pancreatitis. Tyler score 0 (no LDH drawn on admission) on admission. GB was normal by CT. TG 198. [place] to be related to alcoholism. NPO. IV fluids started. Analgesics started. Lipase peaked at 2750 but trending down now. WBC worse and with elevated Hgb. No with LARRY. BP stable but felt he is 3rd spacing fluids. Repeat CT A/P without contrast showing significant progression of retroperitoneal inflammatory stranding and fluid centered around the pancreas consistent with worsening acute interstitial pancreatitis. Also with new small bilateral pleural effusions and small to moderate amount of ascites in the abdomen and pelvis likely related to acute pancreatitis. Continue supportive care. NPO. IV fluid rate increased and changed to NS. GI consult. Check RUQ US. Discussed with shared services representative. Move to IMU for now. (2) LARRY (acute kidney injury): Code(s): N17.9 - Acute kidney failure, unspecified Status: Acute Assessment and Plan: Cr normal as baseline. Cr 1.9 today. Did receive contrast on admission. Suspect more likely related to 3rd spacing SG 1.032. TCK 25. Fidelia 25. CT scan showing normal kidneys and bladder. He was on LR 150 but increased to 200mL last night. Changed to NS today. Nephrology consult. Repeat Cr slightly better. Follow (3) Electrolyte abnormality: Code(s): E87.8 - Other disorders of electrolyte and fluid balance, not elsewhere classified Status: Acute Assessment and Plan: Na normal on admission. Sodium trended down yesterday and was 126 today. Again felt related to 3rd spacing. IV fluids changed to NS. Continue 200mL/hr. Potassium was 5.6. Related to the LARRY. Treated with calcium, bicarb and neb treatment. No lokelma due to ileus. Repeat potassium normal. Continue to follow (4) Alcohol withdrawal: Code(s): F10.939 - Alcohol use, unspecified with withdrawal, unspecified Status: Acute Assessment and Plan: CIWA protocol started. CIWA 5-17 today. Scheduled Librium started. Monitor symptoms closely since on benzo and narcotics. Continue Librium 10 mg PO q6. . (5) SIRS (systemic inflammatory response syndrome): Code(s): R65.10 - Systemic inflammatory response syndrome (SIRS) of non-infectious origin without acute organ dysfunction Status: Acute Assessment and Plan: Noted on admission with leukocytosis, tachycardia, lactic acidosis. WBC 49K today. Lactic peaked at 4.3 but better today. Zosyn started on admission but stopped due to no clear evidence of infectious process. CT A/P again showing worsening pancreatitis but no clear infectious etiology UCx pending. Check BCx Discussed with others. Will start emperic Meropenem and follow cultures. Check CXR. Move to IMU (6) Lactic acidosis: Code(s): E87.20 - Acidosis, unspecified Status: Acute Assessment and Plan: Related to above (7) Leukocytosis: Code(s): D72.829 - Elevated white blood cell count, unspecified Status: Acute Assessment and Plan: Related to above (8) Polycythemia: Code(s): D75.1 - Secondary polycythemia Status: Acute Assessment and Plan: Probably related to third spacing. Follow (9) Ileus: Code(s): K56.7 - Ileus, unspecified Status: Acute Assessment and Plan: CT scan today showing multiple mildly dilated loops of small bowel without discrete transition point most likely representing a secondary reactive ileus. Passing flatus GI consulted Follow. Keep NPO for now (10) Alcohol abuse: Code(s): F10.10 - Alcohol abuse, uncomplicated
--- NOTE | 2024-02-25 14:40 | WPDGICN ---
Assessment and Plan Assessment and plan (1) Alcohol withdrawal: Qualifiers: Complication of substance-induced condition: with unspecified complication Qualified Code(s): F10.939 - Alcohol use, unspecified with withdrawal, unspecified Code(s): F10.939 - Alcohol use, unspecified with withdrawal, unspecified Status: Acute (2) SIRS (systemic inflammatory response syndrome): Code(s): R65.10 - Systemic inflammatory response syndrome (SIRS) of non-infectious origin without acute organ dysfunction Status: Acute (3) Ileus: Code(s): K56.7 - Ileus, unspecified Status: Acute (4) Polycythemia: Code(s): D75.1 - Secondary polycythemia Status: Acute (5) Acute alcoholic pancreatitis: Qualifiers: Acute pancreatitis complication: no infection or necrosis Qualified Code(s): K85.20 - Alcohol induced acute pancreatitis without necrosis or infection Code(s): K85.20 - Alcohol induced acute pancreatitis without necrosis or infection Status: Acute (6) Alcohol abuse: Code(s): F10.10 - Alcohol abuse, uncomplicated Status: Acute (7) Ascites: Qualifiers: Ascites type: other type Qualified Code(s): R18.8 - Other ascites Code(s): R18.8 - Other ascites Status: Acute (8) LARRY (acute kidney injury): Code(s): N17.9 - Acute kidney failure, unspecified Status: Acute Plan 1.Acute severe alcoholic pancreatitis / elevated lipase / abnormal imaging digestive / ascites/abdominal pain-distention/ileus: This is the patient's 3rd episode of alcoholic pancreatitis in June of 2022. Patient states that he had an acute onset of abdominal pain yesterday but was admitted to the hospital on the . Patient has abdominal distension and tenderness with palpation, likely secondary to ascites noted on imaging. CT today show significant progression of retroperitoneal inflammatory stranding and fluid centered around the pancreas consistent with worsening acute interstitial pancreatitis. Patient was also shown to have bilateral pleural effusions and small to moderate amount ascites likely related to acute pancreatitis. Patient has multiple mildly dilated loops of small bowel without discrete transition point likely representing is secondary reactive ileus. Somewhat unclear how much alcohol the patient was consuming to admission but ER documentation states that he was drinking a 5th every 2 days. On admission lipase 1104 and today 2682. Lactic acid 3.7. lipase slowly trending down but this is of no clinical significance as lipase levels do not directly correlate with severity of pancreatitis concern for kidney injury secondary to severe pancreatitis, on admission BUN 7, creatinine 0.60, and GFR >60 and today BUN 34 and creatinine 1.80 with GFR 45. Nephrology consult pending recommendations diagnostic paracentesis ordered [facility] protocol Alcohol cessation recommended, consider outpatient treatment case was reviewed with Dr. Stafford and he agrees that given the severity of the patient's illness he should be transferred to a higher level of care 2. Leukocytosis/tachycardia: Labs this morning showed wbc's 49, HGB 20, HCT 57, platelets 270. Patient was previously on Zosyn which has been discontinued by primary care team. Concern for sepsis recommend primary care team order blood cultures if not already ordered Thank you for allowing me to share in the care of this very complex patient Shaina Garibay [facility] GI Consult Note Consult date/time: 02/25/24 14:40 HPI: This is a 28-year-old male with history of tobacco abuse and alcoholism and prior episodes of pancreatitis. he presented to the emergency room 02/23/2024 with complaints of abdominal pain. GI has been consulted for acute alcoholic pancreatitis. This is the 3rd hospitalization since June of 2022 for alcoholic pancreatitis , last episode was in August. Please
[2024-02-25] MEDS: MEROPENEM 1 GM/NS 100 ML 1 GM/100 ML BAG IVPB ×2 (14:42→22:16)
--- NOTE | 2024-02-25 15:32 | PC.NURSE ---
This patient, Alonso Bender, was transferred to IMU on 02/25/24 at 1532. Personal belongings sent with patient. Report given to ERIKA Aggarwal. Appropriate documentation sent with patient.
[2024-02-26] VITALS (18 sets, daily range): BP systolic 117–145; BP diastolic 61–85; PULSE 103–120; RESP 16–20; TEMP 36–37.2; O2SAT 91–98
[2024-02-26] MEDS: SODIUM CHLORIDE 0.9% IV 1,000 ML 200 ML IV CONT ×5 (00:49→19:48)
[2024-02-26] MEDS: HYDROmorphone HCL INJ (*CRX) 2 MG/ML VIAL IV PUSH ×4 (02:40→16:00)
[2024-02-26 05:41] LABS: Alanine Aminotransferase 11 U/L (6-50); Alkaline Phosphatase 51 U/L (38-126); Anion Gap 5 mmol/L (4-12); Aspartate Amino Transferase 31 U/L (17-59); Bilirubin,Total 2.2 mg/dL (0.2-1.3); Blood Urea Nitrogen 26 mg/dL (9-20); Calcium 7.8 mg/dL (8.4-10.2); Carbon Dioxide 31 mmol/L (22-30); Chloride 93 mmol/L (98-107); Estimated CRCL calculation 115 ml/min; Estimated Glomerular Filt Rate > 60; Glucose 115 mg/dL (65-110); Lipase 1083 U/L (23-300); Magnesium 1.8 mg/dL (1.6-2.3); Phosphorus 2.4 mg/dL (2.5-4.5); Potassium 4.2 mmol/L (3.4-5.0); Sodium 129 mmol/L (137-145)
[2024-02-26 05:45] LABS: Basophils Absolute Auto 0.1 K/mm3 (0.0-0.1); Basophils Percent Auto 0.2 % (0.2-1.2); Hematocrit 43.2 % (42.0-52.0); Hemoglobin 14.7 g/dL (14.0-18.0); INR 1.2; Immature Granulocyte Absolute 0.44 K/mm3 (0.00-0.031); Immature Granulocyte Percent A 1.6 % (0-0.5); Immature Platelet Fraction Pct 13.2 % (0.9-11.2); Lymphocytes Absolute Auto 1.52 K/mm3 (0.9-3.2); Lymphocytes Percent Auto 5.7 % (18.3-44.2); Mean Corpuscular Hemoglobin 32.5 pg (26-34); Mean Corpuscular Volume 95.6 fl (80-100); Mean Platelet Volume 11.9 fl (7.4-10.4); Monocytes Absolute Auto 1.2 K/mm3 (0.1-0.6); Monocytes Percent Auto 4.3 % (2.6-8.5); Neutrophils Absolute Auto 23.6 K/mm3 (1.3-6.7); Neutrophils Percent Auto 88.2 % (45.5-73.1); Platelet Count Result 122 k/mm3 (150-375); Prothrombin Time 15.6 Seconds (11.1-14.7); Red Blood Count 4.52 M/mm3 (4.6-6.20); White Blood Count 26.8 K/mm3 (4.5-10.0)
[2024-02-26 05:46] LABS: Partial Thromboplastin Time 28.8 Seconds (22.3-36.8)
[2024-02-26] MEDS: MEROPENEM 1 GM/NS 100 ML 1 GM/100 ML BAG IVPB ×3 (05:59→23:49)
[2024-02-26 06:00] LABS: Lactic Acid Reflex 1.9 mmol/L (0.7-2.0)
[2024-02-26] MEDS: chlordiazePOXIDE (*CRX) 10 MG CAPSULE PO ×3 (09:29→20:46)
[2024-02-26] MEDS: THIAMINE HCL 200 MG/2 ML VIAL 100 MG IV PUSH (09:30)
[2024-02-26] MEDS: PANTOPRAZOLE SODIUM IV 40 MG VIAL IV PUSH (09:39)
--- NOTE | 2024-02-26 11:10 | PM.PNNEP ---
Progress Note: A&P Assessment and Plan (1) LARRY (acute kidney injury): Code(s): N17.9 - Acute kidney failure, unspecified Status: Acute Assessment and Plan: significant improvement noted normal renal function at baseline on admission noted significant increase in creatinine to 1.9mg/dl on 02/24 associated with mild hyperkalemia -- s/p medical management suspect multifactorial etiology: prerenal factors contrast exposure (CT A/P with contrast on 02/22) third spacing from pancreatitis infection (?) evaluation to date noted: urine electrolytes prerenal urine eosinophils negative CT scan with evidence of obstruction in kidneys CPK low continue supportive therapy follow trend of repeat labs and UOP (2) Acute alcoholic pancreatitis: Qualifiers: Acute pancreatitis complication: no infection or necrosis Qualified Code(s): K85.20 - Alcohol induced acute pancreatitis without necrosis or infection Code(s): K85.20 - Alcohol induced acute pancreatitis without necrosis or infection Status: Acute Assessment and Plan: as noted by presentation. elevated lipase, and CT scan findings felt to be secondary to alcohol abuse normal gallbladder by CT scan triglyceride level within reason concerning that WBC higher, elevated H/H, and now LARRY repeat CT scan A/P results noted - significant progression of retroperitoneal inflammatory stranding and fluid centered around the pancreas consistent with worsening acute interstitial pancreatitis. Also with new small bilateral pleural effusions and small to moderate amount of ascites in the abdomen and pelvis -- this suggests an element of 3rd spacing present RUQ ultrasound results noted NPO and on IVFs pain control GI following with recommendations noted continue supportive therapy (3) Hyponatremia: Code(s): E87.1 - Hypo-osmolality and hyponatremia Status: Acute Assessment and Plan: improvement noted sodium normal on admission down to 126mmol/L on 02/24 likely secondary to LARRY/ARF, prerenal factors, and 3rd spacing as evidence by recent imaging follow trend of sodium level (4) SIRS (systemic inflammatory response syndrome): Code(s): R65.10 - Systemic inflammatory response syndrome (SIRS) of non-infectious origin without acute organ dysfunction Status: Acute Assessment and Plan: as noted on admission with elevated WBC, tachycardia, and lactic acidosis WBC up to 49,0000 today lactic better repeat imaging noted follow culture data empiric antibiotics at this time follow hemodynamics (5) Ileus: Code(s): K56.7 - Ileus, unspecified Status: Acute Assessment and Plan: recent CT scan with multiple mildly dilated loops of small bowel without discrete transition point most likely representing a secondary reactive ileus remains NPO GI following (6) Alcohol abuse: Code(s): F10.10 - Alcohol abuse, uncomplicated Status: Acute Assessment and Plan: known history of alcoholism on thiamine and folate monitoring for withdrawal: on CIWA protocol started on librium monitor symptoms closely since on benzodiazepines and narcotics Will continue to follow. Subjective Date/time seen: 02/26/24 11:10 Interval history: Follow-up for acute kidney injury/acute renal failure. Status post ultrasound guided paracentesis earlier this morning and tolerated this intervention reasonably well; renal function/creatinine as well as potassium have improved significanly in the last 24 hours; still with on/off abdominal pain at this time. Exam Narrative: General: WD/WN male in mild distress due to pain Heart: tachycardic, normal S1 and S2; no rub Lungs: clear anteriorly, decreased at bases Abdomen: soft, + TTP in epigastric area, nondistended, positive bowel sounds Extremities: no cyanosis or clubbing; no edema S
--- NOTE | 2024-02-26 11:10 | P.PNNP_ITS ---
Progress Note: A&P Assessment and Plan (1) LARRY (acute kidney injury): Code(s): N17.9 - Acute kidney failure, unspecified Status: Acute Assessment and Plan: * significant improvement noted * normal renal function at baseline on admission * noted significant increase in creatinine to 1.9mg/dl on 02/24 * associated with mild hyperkalemia -- s/p medical management * suspect multifactorial etiology: * prerenal factors * contrast exposure (CT A/P with contrast on 02/22) * third spacing from pancreatitis * infection (?) * evaluation to date noted: * urine electrolytes prerenal * urine eosinophils negative * CT scan with evidence of obstruction in kidneys * CPK low * continue supportive therapy * follow trend of repeat labs and UOP (2) Acute alcoholic pancreatitis: Qualifiers: Acute pancreatitis complication: no infection or necrosis Qualified Code(s): K85.20 - Alcohol induced acute pancreatitis without necrosis or infection Code(s): K85.20 - Alcohol induced acute pancreatitis without necrosis or infection Status: Acute Assessment and Plan: * as noted by presentation. elevated lipase, and CT scan findings * felt to be secondary to alcohol abuse * normal gallbladder by CT scan * triglyceride level within reason * concerning that WBC higher, elevated H/H, and now LARRY * repeat CT scan A/P results noted - significant progression of retroperito teddy inflammatory stranding and fluid centered around the pancreas consistent with worsening acute interstitial pancreatitis. Also with new small bilateral pleural effusions and small to moderate amount of ascites in the abdomen and pelvis -- this suggests an element of 3rd spacing present * RUQ ultrasound results noted * NPO and on IVFs * pain control * GI following with recommendations noted * continue supportive therapy (3) Hyponatremia: Code(s): E87.1 - Hypo-osmolality and hyponatremia Status: Acute Assessment and Plan: * improvement noted * sodium normal on admission * down to 126mmol/L on 02/24 * likely secondary to LARRY/ARF, prerenal factors, and 3rd spacing as evidence by recent imaging * follow trend of sodium level (4) SIRS (systemic inflammatory response syndrome): Code(s): R65.10 - Systemic inflammatory response syndrome (SIRS) of non-infectious origin without acute organ dysfunction Status: Acute Assessment and Plan: * as noted on admission with elevated WBC, tachycardia, and lactic acidosis * WBC up to 49,0000 today * lactic better * repeat imaging noted * follow culture data * empiric antibiotics at this time * follow hemodynamics (5) Ileus: Code(s): K56.7 - Ileus, unspecified Status: Acute Assessment and Plan: * recent CT scan with multiple mildly dilated loops of small bowel without discrete transition point most likely representing a secondary reactive ileus * remains NPO * GI following (6) Alcohol abuse: Code(s): F10.10 - Alcohol abuse, uncomplicated Status: Acute Assessment and Plan: * known history of alcoholism * on thiamine and folate * monitoring for withdrawal: * on CIWA protocol started * on librium * monitor symptoms closely since on benzodiazepines and narcotics Will continue to follow. Subjective Date/time seen: 02/26/24 11:10 Interval history: Follow-up for acute kidney injury/acute renal failure. Status post ultrasoun
[2024-02-26] MEDS: FOLIC ACID 1 MG/0.2 ML INJ IV PUSH (11:13)
[2024-02-26] MEDS: ONDANSETRON INJ 4 MG/2 ML VIAL IV PUSH (11:14)
[2024-02-26 11:44] LABS: Appearance Peritoneal Fluid Turbid (Clear); Color Peritoneal Fluid Brown (Colorless); Source Peritoneal Fluid Peritoneal Fluid
[2024-02-26 11:45] LABS: Nucleated Cells Peritoneal Flu 32465 /uL (0-500); RBC Peritoneal Fluid 5000 /uL (0-10000)
[2024-02-26 11:57] LABS: Macrophages Peritoneal Fluid 13 %; Monocytes Peritoneal Fluid 7 %; Neutrophils Peritoneal Fluid 80 % (0-25)
[2024-02-26] MEDS: NICOTINE (*PBKC) 21 MG PATCH 1 PATCH (13:45)
[2024-02-26 13:47] LABS: Osmolality, Urine 561 mOsm/kg (50-1200)
--- NOTE | 2024-02-26 15:45 | WPDGIPROGNO ---
Progress Note: A&P Assessment and Plan (1) Ascites: Qualifiers: Ascites type: other type Qualified Code(s): R18.8 - Other ascites Code(s): R18.8 - Other ascites Status: Acute (2) SIRS (systemic inflammatory response syndrome): Code(s): R65.10 - Systemic inflammatory response syndrome (SIRS) of non-infectious origin without acute organ dysfunction Status: Acute (3) Alcohol withdrawal: Qualifiers: Complication of substance-induced condition: with unspecified complication Qualified Code(s): F10.939 - Alcohol use, unspecified with withdrawal, unspecified Code(s): F10.939 - Alcohol use, unspecified with withdrawal, unspecified Status: Acute (4) Ileus: Code(s): K56.7 - Ileus, unspecified Status: Acute (5) Acute alcoholic pancreatitis: Qualifiers: Acute pancreatitis complication: no infection or necrosis Qualified Code(s): K85.20 - Alcohol induced acute pancreatitis without necrosis or infection Code(s): K85.20 - Alcohol induced acute pancreatitis without necrosis or infection Status: Acute (6) Alcohol abuse: Code(s): F10.10 - Alcohol abuse, uncomplicated Status: Acute (7) Leukocytosis: Qualifiers: Leukocytosis type: unspecified Qualified Code(s): D72.829 - Elevated white blood cell count, unspecified Code(s): D72.829 - Elevated white blood cell count, unspecified Status: Acute (8) Hyponatremia: Code(s): E87.1 - Hypo-osmolality and hyponatremia Status: Acute (9) Tachycardia: Code(s): R00.0 - Tachycardia, unspecified Status: Acute (10) Generalized abdominal pain: Code(s): R10.84 - Generalized abdominal pain Status: Acute Plan 1.Acute severe alcoholic pancreatitis / elevated lipase / abnormal imaging digestive / ascites/abdominal pain-distention/ileus: This is the patient's 3rd episode of alcoholic pancreatitis in June of 2022. Patient states that he had an acute onset of abdominal pain yesterday but was admitted to the hospital on the . Patient has abdominal distension and tenderness with palpation, likely secondary to ascites noted on imaging. CT today show significant progression of retroperitoneal inflammatory stranding and fluid centered around the pancreas consistent with worsening acute interstitial pancreatitis. Patient was also shown to have bilateral pleural effusions and small to moderate amount ascites likely related to acute pancreatitis. Patient has multiple mildly dilated loops of small bowel without discrete transition point likely representing is secondary reactive ileus. Somewhat unclear how much alcohol the patient was consuming to admission but ER documentation states that he was drinking a 5th every 2 days. On admission lipase 1104 and today 1083. Lactic acid 3.7. WBC's improving but still high 49-->27.Patient still having severe abdominal pain. Positive bowel sounds in all four quadrants and passing gas. Patient has significant fluid retention in the abdomen and lungs which put the patient at higher risk of complications, SIRS ?. BISAP Score: 4 ( Patients with a BISAP Score >0 had an increasing risk of mortality, with mortality increasing significantly with a score of 3 or greater. A score of 5 had a mortality rate of 22%.) lipase slowly trending down but this is of no clinical significance as lipase levels do not directly correlate with severity of pancreatitis concern for acute kidney injury secondary to severe pancreatitis, on admission BUN 7, creatinine 0.60, and GFR >60, yesterday BUN 34 and creatinine 1.80 with GFR 45. Kidney function improving today with BUN 26 and creatinine 0.90. Nephrology consult pending recommendations diagnostic paracentesis 400 ml removed and results pending Continue [facility] protocol Alcohol cessation recommended, consider outpatient treatment patient was seen and examined in combination with
--- NOTE | 2024-02-26 17:38 | PM.IMPN ---
Progress Note: A&P Assessment and Plan (1) Acute alcoholic pancreatitis: Qualifiers: Acute pancreatitis complication: no infection or necrosis Qualified Code(s): K85.20 - Alcohol induced acute pancreatitis without necrosis or infection Code(s): K85.20 - Alcohol induced acute pancreatitis without necrosis or infection Status: Acute Assessment and Plan: Patient presents with abdominal pain and found to have pancreatitis. Lipase 1100. CT A/P with contrast showing acute pancreatitis. [place] score 0 (no LDH drawn on admission) on admission. [place] 2 (BUN and fluid sequestration) at about 48hours GB was normal by CT. TG 198. [place] to be related to alcoholism. NPO. IV fluids started. Analgesics started. BP stable but felt he is 3rd spacing fluids. Repeat CT A/P without contrast showing significant progression of retroperitoneal inflammatory stranding and fluid centered around the pancreas consistent with worsening acute interstitial pancreatitis. Also with new small bilateral pleural effusions and small to moderate amount of ascites in the abdomen and pelvis likely related to acute pancreatitis. RUQ US showing 3cm liver mass, small right pleural effusion and small volume of ascites. Lipase peaked at 2750 but trending down now. WBC climbed to 49K but trending down now. Elevated Hgb but better as well today. Developed LARRY but this has resolved today BCx NGTD. Had paracentesis today per GI with 400mL of dark brownish fluid removed. Feel we are catching with fluid status with LARRY resolved and Hgb trending down. BP stable but still tachycardic. Continue supportive care. NPO. Continue IVF but decrease rate. GI consulted and appreciate their input. BISAP was 3. Discussed with GI and they recommend patient being transferred to [place] given the severity. Call placed to [place] Move to ICU for closer observation (2) Peritonitis: Code(s): K65.9 - Peritonitis, unspecified Status: Acute Assessment and Plan: Patient noted to have small to moderate volume of ascites on repeat CT Paracentesis performed showing 5K red cells and 32K nucleated cells with 80% neutrophils Gram stain pending. Cultures obtined. BCx negative Continue meropenem (3) LARRY (acute kidney injury): Code(s): N17.9 - Acute kidney failure, unspecified Status: Acute Assessment and Plan: Cr normal as baseline. Cr 1.9 yesterday Did receive contrast on admission. Suspect more likely related to 3rd spacing SG 1.032. TCK 25. Fidelia 25. CT scan showing normal kidneys and bladder. He was on LR 150 but increased to 200mL. Nephrology consulted. Repeat Cr back down. Possible pre-renal from poor renal perfusion Follow (4) Electrolyte abnormality: Code(s): E87.8 - Other disorders of electrolyte and fluid balance, not elsewhere classified Status: Acute Assessment and Plan: Na normal on admission. Sodium trended down to 126 Again felt related to 3rd spacing. IV fluids rate advanced and sodium better at 129 Potassium was 5.6. Related to the LARRY and was treated appropriately. Repeat potassium normal. Continue to follow (5) Alcohol withdrawal: Qualifiers: Complication of substance-induced condition: with unspecified complication Qualified Code(s): F10.939 - Alcohol use, unspecified with withdrawal, unspecified Code(s): F10.939 - Alcohol use, unspecified with withdrawal, unspecified Status: Acute Assessment and Plan: CIWA protocol started. Scheduled Librium started. CIWA 5-8 today. Monitor symptoms closely since on benzo and narcotics. Continue to monitor (6) SIRS (systemic inflammatory response syndrome): Code(s): R65.10 - Systemic inflammatory response syndrome (SIRS) of non-infectious origin without acute organ dysfunction Status: Acute Assessment and Plan: Noted on admission with leukocytosis, tachycardia, lactic acidosis. WBC up to 49K.
[2024-02-26] MEDS: HYDROmorphone HCL INJ (*CRX) 2 MG/ML VIAL 1 MG IV PUSH ×2 (20:46→23:50)
[2024-02-26] MEDS: LORazepam (*CRX) 1 MG TABLET PO (20:48)
[2024-02-27] VITALS (22 sets, daily range): BP systolic 131–145; BP diastolic 73–94; PULSE 93–113; RESP 16–28; TEMP 36.4–37.4; O2SAT 81–100
[2024-02-27] MEDS: SODIUM CHLORIDE 0.9% IV 1,000 ML 150 ML IV CONT (01:04)
[2024-02-27] MEDS: chlordiazePOXIDE (*CRX) 10 MG CAPSULE PO ×3 (02:05→21:56)
[2024-02-27] MEDS: LORazepam (*CRX) 1 MG TABLET PO (02:46)
[2024-02-27] MEDS: HYDROmorphone HCL INJ (*CRX) 2 MG/ML VIAL IV PUSH ×2 (02:46→06:04)
[2024-02-27] MEDS: MEROPENEM 1 GM/NS 100 ML 1 GM/100 ML BAG IVPB ×3 (06:03→22:06)
[2024-02-27 06:32] LABS: Basophils Absolute Auto 0.1 K/mm3 (0.0-0.1); Basophils Percent Auto 0.4 % (0.2-1.2); Eosinophils Percent Auto 0.2 % (0-4.4); Hematocrit 37.9 % (42.0-52.0); Hemoglobin 12.8 g/dL (14.0-18.0); Immature Granulocyte Absolute 0.37 K/mm3 (0.00-0.031); Immature Platelet Fraction Pct 11.9 % (0.9-11.2); Lymphocytes Absolute Auto 1.33 K/mm3 (0.9-3.2); Lymphocytes Percent Auto 7.1 % (18.3-44.2); Mean Corpuscular HGB Conc 33.8 g/dl (32-36); Mean Corpuscular Hemoglobin 32.2 pg (26-34); Mean Corpuscular Volume 95.5 fl (80-100); Mean Platelet Volume 11.4 fl (7.4-10.4); Monocytes Absolute Auto 1.1 K/mm3 (0.1-0.6); Monocytes Percent Auto 5.7 % (2.6-8.5); Neutrophils Absolute Auto 15.9 K/mm3 (1.3-6.7); Neutrophils Percent Auto 84.6 % (45.5-73.1); Platelet Count Result 123 k/mm3 (150-375); Red Blood Count 3.97 M/mm3 (4.6-6.20); Red Cell Distribution Width 15.3 % (11.5-14.5); White Blood Count 18.8 K/mm3 (4.5-10.0)
[2024-02-27 06:44] LABS: Alanine Aminotransferase 10 U/L (6-50); Albumin Level 2.9 g/dL (3.5-5.1); Alkaline Phosphatase 55 U/L (38-126); Anion Gap 7 mmol/L (4-12); Aspartate Amino Transferase 26 U/L (17-59); Bilirubin,Total 1.4 mg/dL (0.2-1.3); Blood Urea Nitrogen 11 mg/dL (9-20); Calcium 7.8 mg/dL (8.4-10.2); Carbon Dioxide 29 mmol/L (22-30); Chloride 94 mmol/L (98-107); Estimated CRCL calculation 167 ml/min; Estimated Glomerular Filt Rate > 60; Glucose 91 mg/dL (65-110); Lipase 285 U/L (23-300); Magnesium 2.1 mg/dL (1.6-2.3); Phosphorus 2.3 mg/dL (2.5-4.5); Potassium 3.5 mmol/L (3.4-5.0); Sodium 130 mmol/L (137-145)
--- NOTE | 2024-02-27 09:01 | ECG_ITS ---
Test Date: 2024-02-27 09:08:32 Measurements Intervals [place] Rate: 103 P: 48 UT: 199 QRS: 46 QRSD: 154 T: -3 QT: 392 QTc: 515 Interpretive Statements SINUS TACHYCARDIA INTRAVENTRICULAR CONDUCTION DELAY BORDERLINE ST-T WAVE ABNORMALITY- INF/LAT LEADS BASELINE ARTIFACT- V3-V6 BORDERLINE ECG Compared to ECG 02/25/2024 09:07:03 HEART RATE HAS DECREASED Intraventricular conduction delay now present Electronically Signed On 02-27-2024 09:10:45 CDT by Zaid Dillon D.O.
--- NOTE | 2024-02-27 09:14 | ECG_ITS ---
Test Date: 2024-02-27 09:22:38 Measurements Intervals [place] Rate: 105 P: 50 RI: 160 QRS: 48 QRSD: 111 T: 11 QT: 338 QTc: 447 Interpretive Statements SINUS TACHYCARDIA INTRAVENTRICULAR CONDUCTION DELAY DELAYED PRECORDIAL R/S TRANSITION BORDERLINE ST-T WAVE ABNORMALITY- INFERIOR LEADS BORDERLINE ECG Compared to ECG 02/27/2024 09:08:32 No significant changes Electronically Signed On 02-27-2024 09:25:38 CDT by Zaid Dillon D.O.
[2024-02-27 09:28] LABS: Glucose Point of Care 84 mg/dl (65-105)
[2024-02-27] MEDS: ONDANSETRON INJ 4 MG/2 ML VIAL IV PUSH (09:33)
--- NOTE | 2024-02-27 09:39 | PC.NURSE ---
Addendum entered by Brandi Ivey RN 02/27/24 11:54: EKG change noted was an suspected ST elevation Original Note: EKG changes noted at 0854, what appeared to be an EKG elevation. 12 lead EKG was obtained. BP 144/99, HR 110, Res 28, O2 98% on 2L. Prior to this, it was reported that pt was found with his oxygen off and his O2 saturation was 81% on room air. Pt is not having chest pain. He is feeling upper abdominal pain, which is the same location he had previously experienced in the days prior. No shortness of breath. Dr. Orr was notified of EKG results, order received for repeat 12 lead EKG and Lungs clear. Abdomen distended and firm. Blood sugar 84. Last dose of Dilaudid was at 0600. CIWA score 7.
[2024-02-27 09:53] LABS: Troponin I < 0.012 ng/mL (0.000-0.034)
[2024-02-27] MEDS: FOLIC ACID 1 MG/0.2 ML INJ IV PUSH (10:00)
[2024-02-27] MEDS: POTASSIUM/PHOSPHORUS/SODIUM 1.5 GM PACKET 1 PACKET PO (10:00)
[2024-02-27] MEDS: PANTOPRAZOLE SODIUM IV 40 MG VIAL IV PUSH (10:00)
[2024-02-27] MEDS: THIAMINE HCL 200 MG/2 ML VIAL 100 MG IV PUSH (10:00)
--- NOTE | 2024-02-27 11:18 | PM.PNNEP ---
Progress Note: A&P Assessment and Plan (1) LARRY (acute kidney injury): Code(s): N17.9 - Acute kidney failure, unspecified Status: Acute Assessment and Plan: significant improvement noted normal renal function at baseline on admission noted significant increase in creatinine to 1.9mg/dl on 02/24 associated with mild hyperkalemia -- s/p medical management suspect multifactorial etiology: prerenal factors contrast exposure (CT A/P with contrast on 02/22) third spacing from pancreatitis infection (?) evaluation to date noted: urine electrolytes prerenal urine eosinophils negative CT scan with evidence of obstruction in kidneys CPK low continue supportive therapy follow trend of repeat labs and UOP (2) Acute alcoholic pancreatitis: Qualifiers: Acute pancreatitis complication: no infection or necrosis Qualified Code(s): K85.20 - Alcohol induced acute pancreatitis without necrosis or infection Code(s): K85.20 - Alcohol induced acute pancreatitis without necrosis or infection Status: Acute Assessment and Plan: as noted by presentation. elevated lipase, and CT scan findings felt to be secondary to alcohol abuse normal gallbladder by CT scan triglyceride level within reason concerning that WBC higher, elevated H/H, and now LARRY repeat CT scan A/P results noted - significant progression of retroperitoneal inflammatory stranding and fluid centered around the pancreas consistent with worsening acute interstitial pancreatitis. Also with new small bilateral pleural effusions and small to moderate amount of ascites in the abdomen and pelvis -- this suggests an element of 3rd spacing present RUQ ultrasound results noted NPO and on IVFs pain control GI following with recommendations noted continue supportive therapy (3) Hyponatremia: Code(s): E87.1 - Hypo-osmolality and hyponatremia Status: Acute Assessment and Plan: improvement noted sodium normal on admission down to 126mmol/L on 02/24 likely secondary to LARRY/ARF, prerenal factors, and 3rd spacing as evidence by recent imaging follow trend of sodium level (4) SIRS (systemic inflammatory response syndrome): Code(s): R65.10 - Systemic inflammatory response syndrome (SIRS) of non-infectious origin without acute organ dysfunction Status: Acute Assessment and Plan: as noted on admission with elevated WBC, tachycardia, and lactic acidosis WBC up to 49,0000 today lactic better repeat imaging noted follow culture data empiric antibiotics at this time follow hemodynamics (5) Ileus: Code(s): K56.7 - Ileus, unspecified Status: Acute Assessment and Plan: recent CT scan with multiple mildly dilated loops of small bowel without discrete transition point most likely representing a secondary reactive ileus remains NPO GI following (6) Alcohol abuse: Code(s): F10.10 - Alcohol abuse, uncomplicated Status: Acute Assessment and Plan: known history of alcoholism on thiamine and folate monitoring for withdrawal: on CIWA protocol started on librium monitor symptoms closely since on benzodiazepines and narcotics Not much else to add -- will continue to follow from a distance. Subjective Date/time seen: 02/27/24 11:18 Interval history: Follow-up for acute kidney injury/acute renal failure. Renal function/creatinine remains stable at this time and continues to make reasonable urine output; still with significant abdominal pain/discomfort at this time; also reports shortness of breath particularly with deep inspiration/breaths; on/off nauseas also noted but denies vomiting; GI recommending transfer to another facility for higher level of care. Exam Narrative: General: WD/WN male in mild distress due to pain Heart: tachycardic, normal S1 and S2; no rub Lungs: clear anteriorly, decr
--- NOTE | 2024-02-27 11:18 | P.PNNP_ITS ---
Progress Note: A&P Assessment and Plan (1) LARRY (acute kidney injury): Code(s): N17.9 - Acute kidney failure, unspecified Status: Acute Assessment and Plan: * significant improvement noted * normal renal function at baseline on admission * noted significant increase in creatinine to 1.9mg/dl on 02/24 * associated with mild hyperkalemia -- s/p medical management * suspect multifactorial etiology: * prerenal factors * contrast exposure (CT A/P with contrast on 02/22) * third spacing from pancreatitis * infection (?) * evaluation to date noted: * urine electrolytes prerenal * urine eosinophils negative * CT scan with evidence of obstruction in kidneys * CPK low * continue supportive therapy * follow trend of repeat labs and UOP (2) Acute alcoholic pancreatitis: Qualifiers: Acute pancreatitis complication: no infection or necrosis Qualified Code(s): K85.20 - Alcohol induced acute pancreatitis without necrosis or infection Code(s): K85.20 - Alcohol induced acute pancreatitis without necrosis or infection Status: Acute Assessment and Plan: * as noted by presentation. elevated lipase, and CT scan findings * felt to be secondary to alcohol abuse * normal gallbladder by CT scan * triglyceride level within reason * concerning that WBC higher, elevated H/H, and now LARRY * repeat CT scan A/P results noted - significant progression of retroperito teddy inflammatory stranding and fluid centered around the pancreas consistent with worsening acute interstitial pancreatitis. Also with new small bilateral pleural effusions and small to moderate amount of ascites in the abdomen and pelvis -- this suggests an element of 3rd spacing present * RUQ ultrasound results noted * NPO and on IVFs * pain control * GI following with recommendations noted * continue supportive therapy (3) Hyponatremia: Code(s): E87.1 - Hypo-osmolality and hyponatremia Status: Acute Assessment and Plan: * improvement noted * sodium normal on admission * down to 126mmol/L on 02/24 * likely secondary to LARRY/ARF, prerenal factors, and 3rd spacing as evidence by recent imaging * follow trend of sodium level (4) SIRS (systemic inflammatory response syndrome): Code(s): R65.10 - Systemic inflammatory response syndrome (SIRS) of non-infectious origin without acute organ dysfunction Status: Acute Assessment and Plan: * as noted on admission with elevated WBC, tachycardia, and lactic acidosis * WBC up to 49,0000 today * lactic better * repeat imaging noted * follow culture data * empiric antibiotics at this time * follow hemodynamics (5) Ileus: Code(s): K56.7 - Ileus, unspecified Status: Acute Assessment and Plan: * recent CT scan with multiple mildly dilated loops of small bowel without discrete transition point most likely representing a secondary reactive ileus * remains NPO * GI following (6) Alcohol abuse: Code(s): F10.10 - Alcohol abuse, uncomplicated Status: Acute Assessment and Plan: * known history of alcoholism * on thiamine and folate * monitoring for withdrawal: * on CIWA protocol started * on librium * monitor symptoms closely since on benzodiazepines and narcotics Not much else to add -- will continue to follow from a distance. Subjective Date/time seen: 02/27/24 11:18 Interval history: Follow-up for acute kidney injury/acute renal f
[2024-02-27] MEDS: HYDROmorphone HCL INJ (*CRX) 2 MG/ML VIAL 1 MG IV PUSH ×3 (12:30→22:05)
--- NOTE | 2024-02-27 12:37 | PM.IMPN ---
Progress Note: A&P Assessment and Plan (1) Acute alcoholic pancreatitis: Qualifiers: Acute pancreatitis complication: no infection or necrosis Qualified Code(s): K85.20 - Alcohol induced acute pancreatitis without necrosis or infection Code(s): K85.20 - Alcohol induced acute pancreatitis without necrosis or infection Status: Acute Assessment and Plan: Patient presents with abdominal pain and found to have pancreatitis. Lipase 1100. CT A/P with contrast showing acute pancreatitis. [place] score 0 (no LDH drawn on admission) on admission. [place] 2 (BUN and fluid sequestration) at about 48hours GB was normal by CT. TG 198. [place] to be related to alcoholism. NPO. IV fluids started. Analgesics started. BP stable but felt he is 3rd spacing fluids. Repeat CT A/P without contrast showing significant progression of retroperitoneal inflammatory stranding and fluid centered around the pancreas consistent with worsening acute interstitial pancreatitis. Also with new small bilateral pleural effusions and small to moderate amount of ascites in the abdomen and pelvis likely related to acute pancreatitis. RUQ US showing 3cm liver mass, small right pleural effusion and small volume of ascites. Lipase peaked at 2750 but has trended to normal now. WBC climbed to 49K but trending down now. Elevated Hgb but better today. Developed LARRY but this has resolved as well BCx NGTD. Had paracentesis per GI with 400mL of dark brownish fluid removed. GI consulted and appreciate their input. BISAP was 3. Discussed with GI and they recommend patient being transferred to [place] given the severity. Call placed to [place] but felt no reason to transfer unless patient's condition worsens. Did not move to ICU since clinically improving Feel we are catching with fluid status with LARRY resolved and Hgb trending down. BP stable and remains tachycardic but HR better. In some patients with moderately severe to severe pancreatitis, oral feeding may not be tolerated due to postprandial pain, nausea or vomiting related to gastroduodenal inflammation and/or extrinsic compression from fluid collections leading to gastric outlet obstruction. Such patients require enteral feeding, if they cannot tolerate oral diet by day five. However, when the local complications start improving, oral feeds can be initiated and advanced as tolerated. Will start TPN since he has nausea and possible ileus. Stop IVF. Wean narcotics. Increase activity. Continue supportive care. (2) Peritonitis: Code(s): K65.9 - Peritonitis, unspecified Status: Acute Assessment and Plan: Patient noted to have small to moderate volume of ascites on repeat CT Paracentesis performed showing 5K red cells and 32K nucleated cells with 80% neutrophils Serum WBC up to 49K but better at 18.8K today. Cultures pending BCx negative Continue meropenem (3) LARRY (acute kidney injury): Code(s): N17.9 - Acute kidney failure, unspecified Status: Acute Assessment and Plan: Cr normal as baseline. Cr climbed to 1.9 Did receive contrast on admission. Suspect more likely related to 3rd spacing SG 1.032. TCK 25. Fidelia 25. CT scan showing normal kidneys and bladder. He was on IVF 150 but increased to 200mL. Nephrology consulted. Repeat Cr back down to normal. Possible pre-renal from poor renal perfusion Follow (4) Electrolyte abnormality: Code(s): E87.8 - Other disorders of electrolyte and fluid balance, not elsewhere classified Status: Acute Assessment and Plan: Na normal on admission. Sodium trended down to 126 Again felt related to 3rd spacing. IV fluids rate advanced and sodium better at 130 and climbing at an appropriate rate Potassium was 5.6. Related to the LARRY and was treated appropriately. Repeat potassium normal. Continue to follow (5) Alcohol withdrawal: Qualifiers: Complication of substance-induced condition: with unspec
[2024-02-27 13:54] LABS: Transferrin 180 mg/dL (206-381)
[2024-02-27 14:50] LABS: Partial Thromboplastin Time 28.5 Seconds (22.3-36.8)
[2024-02-27] MEDS: AMINO ACIDS 4.25%/D5W/LYTES/CA 2,000 ML 80 ML IV CONT (17:32)
[2024-02-27] MEDS: FAT EMULSIONS IV 20% 250 ML 20.83 ML IVPB (17:33)
[2024-02-27 18:07] LABS: Glucose Point of Care 88 mg/dl (65-105)
[2024-02-27] MEDS: BISACODYL 10 MG SUPPOSITORY RECTAL (18:30)
[2024-02-27 20:52] LABS: Glucose Point of Care 108 mg/dl (65-105)
[2024-02-27] MEDS: NICOTINE (*PBKC) 21 MG PATCH 1 PATCH TRANSDERM (21:56)
[2024-02-28] VITALS (15 sets, daily range): BP systolic 110–135; BP diastolic 57–85; PULSE 93–110; RESP 16–24; TEMP 36.5–37.2; O2SAT 90–95
[2024-02-28 00:21] LABS: Glucose Point of Care 109 mg/dl (65-105)
[2024-02-28] MEDS: HYDROmorphone HCL INJ (*CRX) 2 MG/ML VIAL 1 MG IV PUSH ×6 (01:37→22:20)
[2024-02-28] MEDS: chlordiazePOXIDE (*CRX) 10 MG CAPSULE PO ×3 (01:42→21:20)
--- NOTE | 2024-02-28 03:46 | PC.NURSE ---
02/27/24 at 2335-Radiology report obtained showing that the patient's right nare NG is in adequate position within the stomach. Rt nare NG placed to LIS per MD orders.
[2024-02-28 05:33] LABS: Glucose Point of Care 113 mg/dl (65-105)
[2024-02-28] MEDS: MEROPENEM 1 GM/NS 100 ML 1 GM/100 ML BAG IVPB ×3 (06:01→21:20)
[2024-02-28 06:16] LABS: Basophils Absolute Auto 0.1 K/mm3 (0.0-0.1); Basophils Percent Auto 0.5 % (0.2-1.2); Eosinophils Absolute Auto 0.2 K/mm3 (0-0.3); Eosinophils Percent Auto 1.1 % (0-4.4); Hematocrit 35.9 % (42.0-52.0); Hemoglobin 12.4 g/dL (14.0-18.0); Immature Granulocyte Absolute 0.64 K/mm3 (0.00-0.031); Immature Granulocyte Percent A 4.6 % (0-0.5); Immature Platelet Fraction Pct 9.6 % (0.9-11.2); Lymphocytes Absolute Auto 1.71 K/mm3 (0.9-3.2); Lymphocytes Percent Auto 12.4 % (18.3-44.2); Mean Corpuscular HGB Conc 34.5 g/dl (32-36); Mean Corpuscular Hemoglobin 32.7 pg (26-34); Mean Corpuscular Volume 94.7 fl (80-100); Monocytes Absolute Auto 1.2 K/mm3 (0.1-0.6); Monocytes Percent Auto 8.8 % (2.6-8.5); Neutrophils Percent Auto 72.6 % (45.5-73.1); Nucleated Red Blood Cells Perc 0.1 % (0.0-0.2); Platelet Count Result 117 k/mm3 (150-375); Red Blood Count 3.79 M/mm3 (4.6-6.20); Red Cell Distribution Width 15.1 % (11.5-14.5); White Blood Count 13.8 K/mm3 (4.5-10.0)
[2024-02-28 06:28] LABS: Alanine Aminotransferase 10 U/L (6-50); Alkaline Phosphatase 58 U/L (38-126); Anion Gap 5 mmol/L (4-12); Aspartate Amino Transferase 22 U/L (17-59); Bilirubin,Total 0.9 mg/dL (0.2-1.3); Blood Urea Nitrogen 10 mg/dL (9-20); Calcium 7.8 mg/dL (8.4-10.2); Carbon Dioxide 35 mmol/L (22-30); Chloride 91 mmol/L (98-107); Estimated CRCL calculation 197 ml/min; Estimated Glomerular Filt Rate > 60; Glucose 124 mg/dL (65-110); Lipase 209 U/L (23-300); Magnesium 2.1 mg/dL (1.6-2.3); Phosphorus 1.7 mg/dL (2.5-4.5); Potassium 2.9 mmol/L (3.4-5.0); Sodium 131 mmol/L (137-145); Triglycerides 224 mg/dL (<150)
[2024-02-28] MEDS: NICOTINE (*PBKC) 21 MG PATCH 1 PATCH TRANSDERM (10:00)
[2024-02-28] MEDS: PANTOPRAZOLE SODIUM IV 40 MG VIAL IV PUSH (10:11)
[2024-02-28] MEDS: THIAMINE HCL 200 MG/2 ML VIAL 100 MG IV PUSH (10:13)
[2024-02-28] MEDS: FOLIC ACID 1 MG/0.2 ML INJ IV PUSH (10:18)
[2024-02-28] MEDS: BISACODYL 10 MG SUPPOSITORY RECTAL (10:22)
[2024-02-28] MEDS: POTASSIUM CHLORIDE INJ 40 MEQ in SODIUM CHLORIDE 0.9% IV 500 ML 130 MEQ IVPB (10:25)
[2024-02-28 12:00] LABS: Glucose Point of Care 118 mg/dl (65-105)
--- NOTE | 2024-02-28 13:02 | PM.IMPN ---
Progress Note: A&P Assessment and Plan (1) Acute alcoholic pancreatitis: Qualifiers: Acute pancreatitis complication: no infection or necrosis Qualified Code(s): K85.20 - Alcohol induced acute pancreatitis without necrosis or infection Code(s): K85.20 - Alcohol induced acute pancreatitis without necrosis or infection Status: Acute Assessment and Plan: Patient presents with abdominal pain and found to have pancreatitis. Lipase 1100. CT A/P with contrast showing acute pancreatitis. [place] score 0 (no LDH drawn on admission) on admission. [place] 2 (BUN and fluid sequestration) at about 48hours GB was normal by CT. TG 198. [place] to be related to alcoholism. NPO. IV fluids started. Analgesics started. BP stable but felt he is 3rd spacing fluids. Repeat CT A/P without contrast showing significant progression of retroperitoneal inflammatory stranding and fluid centered around the pancreas consistent with worsening acute interstitial pancreatitis. Also with new small bilateral pleural effusions and small to moderate amount of ascites in the abdomen and pelvis likely related to acute pancreatitis. RUQ US showing 3cm liver mass, small right pleural effusion and small volume of ascites. Lipase peaked at 2750 but has trended to normal now. WBC climbed to 49K but trending down now. Elevated Hgb but better today. Developed LARRY but this has resolved as well BCx NGTD. Had paracentesis per GI with 400mL of dark brownish fluid removed. GI consulted and appreciate their input. BISAP was 3. Discussed with GI and they recommend patient being transferred to [place] given the severity. Call placed to [place] but they felt no reason to transfer unless patient's condition worsens. Did not move to ICU since clinically improving Feel we are catching with fluid status with LARRY resolved and Hgb trending down. BP stable and remains tachycardic but HR much better. Pateint with persistent nausea and had ileus/SBO so TPN started. Continue narcotics. Continue supportive care. (2) SBO (small bowel obstruction): Code(s): K56.609 - Unspecified intestinal obstruction, unspecified as to partial versus complete obstruction Status: Acute Assessment and Plan: Repeat CT scan showing multiple mildly dilated loops of small bowel without discrete transition point most likely representing a secondary reactive ileus. Repeat abd xray showing SBO. NGT insert and placed on suction. General surgery consulted and appreciate their input. Repeat KUB this morning still showing SBO Increase activity. (3) Peritonitis: Code(s): K65.9 - Peritonitis, unspecified Status: Acute Assessment and Plan: Patient noted to have small to moderate volume of ascites on repeat CT Paracentesis performed showing 5K red cells and 32K nucleated cells with 80% neutrophils Serum WBC up to 49K but better at 18.8K today. Gram stain showing moderate WBC but no micro organisms Cultures no groeth BCx NGTD Continue meropenem (4) LARRY (acute kidney injury): Code(s): N17.9 - Acute kidney failure, unspecified Status: Acute Assessment and Plan: Cr normal as baseline. Cr climbed to 1.9 Did receive contrast on admission. Suspect more likely related to 3rd spacing SG 1.032. TCK 25. Fidelia 25. CT scan showing normal kidneys and bladder. He was on IVF 150 but increased to 200mL. Nephrology consulted. Repeat Cr back down to normal. Possible pre-renal from poor renal perfusion Follow (5) Electrolyte abnormality: Code(s): E87.8 - Other disorders of electrolyte and fluid balance, not elsewhere classified Status: Acute Assessment and Plan: Na normal on admission. Sodium trended down to 126 Again felt related to 3rd spacing. IV fluids rate advanced and sodium better at 131 and climbing at an appropriate rate Potassium was 5.6. Related to the LARRY and was treated appropriately. Repeat potassium was normal but
--- NOTE | 2024-02-28 13:23 | PM.CNGS ---
Assessment and Plan Assessment and plan (1) SBO (small bowel obstruction): Code(s): K56.609 - Unspecified intestinal obstruction, unspecified as to partial versus complete obstruction Status: Acute Assessment and Plan: Plain films do suggest small-bowel obstruction. I have changed the nasogastric tube settings to constant suction and medium. They will also irrigate the NG tube every 6 hours. Hopefully we will get more out of the nasogastric tube. Will continue conservative treatment for at least 2-3 days to see if this will resolve without surgery. I did explain to the patient that while often small-bowel obstructions resolve with the present treatment, it is certainly possible this will not resolve and will require laparotomy. Will consider repeat CT scan tomorrow if no signs of improvement. Thank you for asking me to see this patient in consultation, I will follow along with you. (2) Acute pancreatitis: Qualifiers: Pancreatitis type: alcohol induced Acute pancreatitis complication: no infection or necrosis Qualified Code(s): K85.20 - Alcohol induced acute pancreatitis without necrosis or infection Code(s): K85.90 - Acute pancreatitis without necrosis or infection, unspecified Status: Acute Assessment and Plan: Seems to be improving with polycythemia and leukocytosis both improved. Agree with bowel rest, analgesics, and TPN. (3) Acute hypokalemia: Code(s): E87.6 - Hypokalemia Status: Acute Assessment and Plan: Being supplemented. (4) Alcohol abuse: Code(s): F10.10 - Alcohol abuse, uncomplicated Status: Chronic (5) Leukocytosis: Qualifiers: Leukocytosis type: unspecified Qualified Code(s): D72.829 - Elevated white blood cell count, unspecified Code(s): D72.829 - Elevated white blood cell count, unspecified Status: Acute Assessment and Plan: Improving as noted (6) Protein calorie malnutrition: Qualifiers: Protein-calorie malnutrition severity: severe Qualified Code(s): E43 - Unspecified severe protein-calorie malnutrition Code(s): E46 - Unspecified protein-calorie malnutrition Status: Acute Assessment and Plan: Agree with TPN. Continue until able to resume eating normally. History of Present Illness Consult details Consult date: 02/28/24 Reason for consult: other (SBO) Requesting physician: Dax Orr MD Narrative: Patient is a 28-year-old man who was admitted to the hospital 5 days ago with epigastric pain. Imaging at that time showed dilated small intestine but acute pancreatitis. The small bowel dilatation was felt to represent an ileus as there was no transition point seen. Patient has long history of alcohol abuse and this is the 3rd admission since June 01, 2022 for acute pancreatitis. Each episode has most likely been due to alcohol. He reports drinking a pt of alcohol every other day. Patient seemed to be getting worse the 1st 3 days of admission with his white blood cell count increasing to as high as 49,000. He had severe polycythemia as well with hemoglobin as high as 20.4. Platelet count was normal but has slowly been decreasing and today is 117,000. He has been unable to eat and plain films since yesterday are consistent with small-bowel obstruction. Nasogastric tube has been placed and is in perfect position by review of his plain films of the abdomen this morning. Surprisingly, not much output from the NG tube as yet. Patient has no history of prior abdominal surgery. He has been seen by Gastroenterology who recommended transfer to a tertiary care center due to the severity of his pancreatitis. Calls were made to be and it was felt that he could be treated here unless his condition worsened. Not being able to eat, he has been started on TPN. He has also been on meropenem for the last 3 days. He is seen now in consultation. He removed ports persistent ep
[2024-02-28] MEDS: FAT EMULSIONS IV 20% 250 ML 21 ML IVPB (13:26)
[2024-02-28] MEDS: AMINO ACIDS 4.25%/D5W/LYTES/CA 2,000 ML 80 ML IV CONT (15:09)
[2024-02-28] MEDS: LORazepam (*CRX) 1 MG TABLET 2 MG PO (15:26)
[2024-02-28] MEDS: SODIUM PHOSPHATE 20 MM in DEXTROSE 5% IN WATER 250 ML 50 MM IVPB (15:57)
[2024-02-28 18:25] LABS: Glucose Point of Care 127 mg/dl (65-105)
[2024-02-28] MEDS: LORazepam INJ (*CRX) 2 MG/ML VIAL 1 MG IV PUSH (21:17)
[2024-02-28 22:58] LABS: Albumin Level 2.8 g/dL (3.5-5.1); Anion Gap 2 mmol/L (4-12); Blood Urea Nitrogen 7 mg/dL (9-20); Calcium 7.9 mg/dL (8.4-10.2); Carbon Dioxide 37 mmol/L (22-30); Chloride 94 mmol/L (98-107); Estimated CRCL calculation 240 ml/min; Estimated Glomerular Filt Rate > 60; Glucose 127 mg/dL (65-110); Phosphorus 3.1 mg/dL (2.5-4.5); Sodium 133 mmol/L (137-145)
[2024-02-28 23:44] LABS: Glucose Point of Care 125 mg/dl (65-105)
[2024-02-29] VITALS (15 sets, daily range): BP systolic 119–140; BP diastolic 73–93; PULSE 85–102; RESP 16–18; TEMP 36–37; O2SAT 94–97; BMI 25.4
[2024-02-29] MEDS: HYDROmorphone HCL INJ (*CRX) 2 MG/ML VIAL 1 MG IV PUSH ×5 (01:37→15:29)
[2024-02-29 04:55] LABS: Basophils Absolute Auto 0.1 K/mm3 (0.0-0.1); Basophils Percent Auto 0.8 % (0.2-1.2); Eosinophils Absolute Auto 0.2 K/mm3 (0-0.3); Eosinophils Percent Auto 1.4 % (0-4.4); Hematocrit 34.6 % (42.0-52.0); Immature Granulocyte Absolute 0.92 K/mm3 (0.00-0.031); Immature Granulocyte Percent A 7.7 % (0-0.5); Immature Platelet Fraction Pct 8.2 % (0.9-11.2); Lymphocytes Absolute Auto 1.88 K/mm3 (0.9-3.2); Lymphocytes Percent Auto 15.7 % (18.3-44.2); Mean Corpuscular HGB Conc 34.7 g/dl (32-36); Mean Corpuscular Hemoglobin 32.6 pg (26-34); Mean Platelet Volume 10.8 fl (7.4-10.4); Monocytes Absolute Auto 1.4 K/mm3 (0.1-0.6); Monocytes Percent Auto 11.4 % (2.6-8.5); Neutrophils Absolute Auto 7.5 K/mm3 (1.3-6.7); Nucleated Red Blood Cells Perc 0.3 % (0.0-0.2); Platelet Count Result 132 k/mm3 (150-375); Red Blood Count 3.68 M/mm3 (4.6-6.20); Red Cell Distribution Width 15.1 % (11.5-14.5)
[2024-02-29 05:06] LABS: Prothrombin Time 13.9 Seconds (11.1-14.7)
[2024-02-29 05:07] LABS: Partial Thromboplastin Time 28.6 Seconds (22.3-36.8)
[2024-02-29 05:09] LABS: Alanine Aminotransferase 12 U/L (6-50); Albumin Level 2.8 g/dL (3.5-5.1); Alkaline Phosphatase 76 U/L (38-126); Anion Gap 2 mmol/L (4-12); Aspartate Amino Transferase 30 U/L (17-59); Bilirubin,Total 0.7 mg/dL (0.2-1.3); Blood Urea Nitrogen 7 mg/dL (9-20); Calcium 7.9 mg/dL (8.4-10.2); Carbon Dioxide 37 mmol/L (22-30); Chloride 94 mmol/L (98-107); Estimated CRCL calculation 240 ml/min; Estimated Glomerular Filt Rate > 60; Glucose 122 mg/dL (65-110); Magnesium 2.1 mg/dL (1.6-2.3); Phosphorus 3.3 mg/dL (2.5-4.5); Sodium 133 mmol/L (137-145)
[2024-02-29 05:20] LABS: Anisocytosis 1+; Large Platelets Present; Platelet Estimate Slightly Decreased (Adequate); Schistocytes None Seen
[2024-02-29 05:27] LABS: Transferrin 167 mg/dL (206-381)
[2024-02-29] MEDS: MEROPENEM 1 GM/NS 100 ML 1 GM/100 ML BAG IVPB ×3 (05:47→22:45)
[2024-02-29] MEDS: THIAMINE HCL 200 MG/2 ML VIAL 100 MG IV PUSH (08:23)
[2024-02-29] MEDS: ONDANSETRON INJ 4 MG/2 ML VIAL IV PUSH (08:27)
[2024-02-29] MEDS: PANTOPRAZOLE SODIUM IV 40 MG VIAL IV PUSH (08:30)
[2024-02-29] MEDS: NICOTINE (*PBKC) 21 MG PATCH 1 PATCH TRANSDERM (08:31)
[2024-02-29] MEDS: FOLIC ACID 1 MG/0.2 ML INJ IV PUSH (08:33)
[2024-02-29] MEDS: POTASSIUM CHLORIDE INJ 40 MEQ in SODIUM CHLORIDE 0.9% IV 500 ML 130 MEQ IVPB (08:41)
--- NOTE | 2024-02-29 12:08 | PM.PNGS ---
Progress Note: A&P Assessment and Plan (1) SBO (small bowel obstruction): Code(s): K56.609 - Unspecified intestinal obstruction, unspecified as to partial versus complete obstruction Status: Acute Assessment and Plan: Plain films this morning still showed dilated small bowel. Continue NG tube decompression, bowel rest, and TPN. Repeat imaging and exam tomorrow. (2) Acute pancreatitis: Qualifiers: Acute pancreatitis complication: no infection or necrosis Pancreatitis type: alcohol induced Qualified Code(s): K85.20 - Alcohol induced acute pancreatitis without necrosis or infection Code(s): K85.90 - Acute pancreatitis without necrosis or infection, unspecified Status: Acute Assessment and Plan: Continue medical management with bowel rest, analgesics, and TPN. (3) Acute hypokalemia: Code(s): E87.6 - Hypokalemia Status: Acute Assessment and Plan: Replace as needed, trend labs. (4) Alcohol abuse: Code(s): F10.10 - Alcohol abuse, uncomplicated Status: Chronic (5) Leukocytosis: Qualifiers: Leukocytosis type: unspecified Qualified Code(s): D72.829 - Elevated white blood cell count, unspecified Code(s): D72.829 - Elevated white blood cell count, unspecified Status: Acute Assessment and Plan: Continues to trend down to 12,000 today (6) Protein calorie malnutrition: Qualifiers: Protein-calorie malnutrition severity: severe Qualified Code(s): E43 - Unspecified severe protein-calorie malnutrition Code(s): E46 - Unspecified protein-calorie malnutrition Status: Acute Assessment and Plan: Continue TPN until able to resume eating normally. Plan I have discussed the patient's case and plan of care with Dr. Scott. Subjective Subjective Date/Time Seen: 02/29/24 12:08 Patient reports: flatus, no bowel movement and afebrile Interval history: This is a 28-year-old man with alcoholism & tobacco abuse, and hx of alcoholic pancreatitis, admitted with abdominal pain and found to have recurrent pancreatitis. Imaging has shown dilated small bowel and felt to represent an ileus. Plain films have been repeated and are consistent with a small bowel obstruction. He is being treated with bowel rest and NG tube decompression. Chart reviewed. NG tube had 800 cc output overnight. He is complaining of generalized abdominal pain that he feels is slightly better than yesterday. He reports flatus this morning, no BM for the past few days. No previous abdominal surgery. Exam Const: General: comfortable, awake and ill appearing GI: Inspection: Abdominal wall edema and distended GI Palp: Yes Soft to palpation, Yes Tenderness to palpation present (GI) (diffusely tender with no peritoneal signs), No Guarding due to palpation present (GI), Yes No hepatosplenomegaly present and No Rebound tenderness present Auscultation: Hypoactive bowel sounds present (very hypoactive bowel sounds) Objective Data Vital Signs Vital Signs: Vital Signs - 24 hr 02/28/24 16:00 02/28/24 14:00 02/28/24 16:00 Temperature 97.7 F Pulse Rate 96 94 100 Pulse Rate [Monitor] Respiratory Rate 24 H Blood Pressure 110/57 L Pulse Oximetry 95 Oxygen Delivery Fraction of Inspired Oxygen 02/28/24 18:00 02/28/24 20:00 02/28/24 20:00 Temperature 99.0 F Pulse Rate 95 102 H Pulse Rate [Monitor] 94 Respiratory Rate 24 H Blood Pressure 135/82 Pulse Oximetry 93 Oxygen Delivery Fraction of Inspired Oxygen 02/28/24 20:00 02/28/24 20:00 02/28/24 22:00 Temperature Pulse Rate 102 H 102 H 94 Pulse Rate [Monitor] Respiratory Rate 24 H Blood Pressure Pulse Oximetry 93 Oxygen Delivery Room Air Fraction of Inspired Oxygen 02/28/24 23:58 02/28/24 23:58 02/29/24 00:00 Temperature 98.5 F Pulse Rate 94 93 Pulse Rate [Monitor] 93 Respiratory Rate 24 H 16 Blood Pressure 135/82 119
[2024-02-29] MEDS: BISACODYL 10 MG SUPPOSITORY RECTAL (12:13)
[2024-02-29 12:29] LABS: Glucose Point of Care 129 mg/dl (65-105)
[2024-02-29] MEDS: LORazepam INJ (*CRX) 2 MG/ML VIAL 1 MG IV PUSH ×2 (14:02→23:24)
[2024-02-29] MEDS: FAT EMULSIONS IV 20% 250 ML 20.8 ML IVPB (14:07)
[2024-02-29] MEDS: AMINO ACIDS 4.25%/D5W/LYTES/CA 2,000 ML 80 ML IV CONT (14:07)
--- NOTE | 2024-02-29 15:34 | PM.IMPN ---
Progress Note: A&P Assessment and Plan (1) Acute alcoholic pancreatitis: Qualifiers: Acute pancreatitis complication: no infection or necrosis Qualified Code(s): K85.20 - Alcohol induced acute pancreatitis without necrosis or infection Code(s): K85.20 - Alcohol induced acute pancreatitis without necrosis or infection Status: Acute Assessment and Plan: Patient presents with abdominal pain and found to have pancreatitis. Lipase 1100. CT A/P with contrast showing acute pancreatitis. [place] score 0 (no LDH drawn on admission) on admission. [place] 2 (BUN and fluid sequestration) at about 48hours GB was normal by CT. TG 198. [place] to be related to alcoholism. NPO. IV fluids started. Analgesics started. BP stable but felt he is 3rd spacing fluids. Repeat CT A/P without contrast showing significant progression of retroperitoneal inflammatory stranding and fluid centered around the pancreas consistent with worsening acute interstitial pancreatitis. Also with new small bilateral pleural effusions and small to moderate amount of ascites in the abdomen and pelvis likely related to acute pancreatitis. RUQ US showing 3cm liver mass, small right pleural effusion and small volume of ascites. Lipase peaked at 2750 but has trended to normal now. WBC climbed to 49K but trending down now. Elevated Hgb but better today. Developed LARRY but this has resolved as well BCx NGTD. Had paracentesis per GI with 400mL of dark brownish fluid removed. GI consulted and appreciate their input. BISAP was 3. Discussed with GI and they recommend patient being transferred to [facility] given the severity. Call placed to [facility] but they felt no reason to transfer unless patient's condition worsens. Did not move to ICU since clinically improving BP stable and HR normal Pateint with persistent nausea and has ileus/SBO so TPN started. Continue narcotics. Continue supportive care. (2) SBO (small bowel obstruction): Code(s): K56.609 - Unspecified intestinal obstruction, unspecified as to partial versus complete obstruction Status: Acute Assessment and Plan: Repeat CT scan showing multiple mildly dilated loops of small bowel without discrete transition point most likely representing a secondary reactive ileus. Repeat abd xray showing SBO. NGT insert and placed on suction. General surgery consulted and appreciate their input. Repeat KUB this morning still showing dilated SB Increase activity. (3) Peritonitis: Code(s): K65.9 - Peritonitis, unspecified Status: Acute Assessment and Plan: Patient noted to have small to moderate volume of ascites on repeat CT Paracentesis performed showing 5K red cells and 32K nucleated cells with 80% neutrophils Serum WBC up to 49K but better at 12K today. Gram stain showing moderate WBC but no micro organisms Cultures no growth BCx NGTD Continue meropenem (4) LARRY (acute kidney injury): Code(s): N17.9 - Acute kidney failure, unspecified Status: Acute Assessment and Plan: Cr normal as baseline. Cr climbed to 1.9 Did receive contrast on admission. Suspect more likely related to 3rd spacing SG 1.032. TCK 25. [place]idel[place] 25. CT scan showing normal kidneys and bladder. He was on IVF 150 but increased to 200mL. Nephrology consulted. Repeat Cr back down to normal. Possible pre-renal from poor renal perfusion Off IVF and now on TPN. Follow (5) Electrolyte abnormality: Code(s): E87.8 - Other disorders of electrolyte and fluid balance, not elsewhere classified Status: Acute Assessment and Plan: Na normal on admission. Sodium trended down to 126 Again felt related to 3rd spacing. IV fluids rate advanced and sodium better at 131 and climbing at an appropriate rate Potassium was 5.6. Related to the LARRY and was treated appropriately. Repeat potassium was normal but low again today at 3. IV replacement ordered. Phos normla now Continue to follo
[2024-02-29 18:22] LABS: Glucose Point of Care 135 mg/dl (65-105)
[2024-02-29] MEDS: HYDROmorphone HCL INJ (*CRX) 1 MG/ML SYR IV PUSH ×2 (18:49→22:37)
[2024-02-29 21:46] LABS: Anion Gap 4 mmol/L (4-12); Blood Urea Nitrogen 7 mg/dL (9-20); Calcium 8.3 mg/dL (8.4-10.2); Carbon Dioxide 34 mmol/L (22-30); Chloride 97 mmol/L (98-107); Estimated CRCL calculation 197 ml/min; Estimated Glomerular Filt Rate > 60; Glucose 126 mg/dL (65-110); Potassium 3.4 mmol/L (3.4-5.0); Sodium 135 mmol/L (137-145)
[2024-03-01] VITALS (19 sets, daily range): BP systolic 120–146; BP diastolic 72–87; PULSE 75–95; RESP 16–18; TEMP 36.4–37.4; O2SAT 94–97
[2024-03-01 00:25] LABS: Glucose Point of Care 143 mg/dl (65-105)
[2024-03-01] MEDS: HYDROmorphone HCL INJ (*CRX) 1 MG/ML SYR IV PUSH ×6 (03:10→23:05)
[2024-03-01 05:31] LABS: Basophils Absolute Auto 0.1 K/mm3 (0.0-0.1); Basophils Percent Auto 0.5 % (0.2-1.2); Eosinophils Absolute Auto 0.2 K/mm3 (0-0.3); Eosinophils Percent Auto 1.8 % (0-4.4); Hematocrit 36.4 % (42.0-52.0); Hemoglobin 12.3 g/dL (14.0-18.0); Immature Granulocyte Absolute 1.62 K/mm3 (0.00-0.031); Immature Granulocyte Percent A 12.4 % (0-0.5); Mean Corpuscular HGB Conc 33.8 g/dl (32-36); Mean Corpuscular Hemoglobin 31.7 pg (26-34); Mean Corpuscular Volume 93.8 fl (80-100); Mean Platelet Volume 10.8 fl (7.4-10.4); Monocytes Absolute Auto 1.6 K/mm3 (0.1-0.6); Neutrophils Absolute Auto 7.9 K/mm3 (1.3-6.7); Neutrophils Percent Auto 60.3 % (45.5-73.1); Nucleated Red Blood Cells Perc 0.2 % (0.0-0.2); Platelet Count Result 167 k/mm3 (150-375); Red Blood Count 3.88 M/mm3 (4.6-6.20); Red Cell Distribution Width 14.8 % (11.5-14.5); White Blood Count 13.1 K/mm3 (4.5-10.0)
[2024-03-01 05:48] LABS: Alanine Aminotransferase 16 U/L (6-50); Alkaline Phosphatase 97 U/L (38-126); Anion Gap 6 mmol/L (4-12); Aspartate Amino Transferase 34 U/L (17-59); Bilirubin,Total 0.8 mg/dL (0.2-1.3); Blood Urea Nitrogen 8 mg/dL (9-20); Calcium 8.4 mg/dL (8.4-10.2); Carbon Dioxide 33 mmol/L (22-30); Chloride 95 mmol/L (98-107); Estimated CRCL calculation 197 ml/min; Estimated Glomerular Filt Rate > 60; Glucose 134 mg/dL (65-110); Magnesium 2.1 mg/dL (1.6-2.3); Phosphorus 3.4 mg/dL (2.5-4.5); Potassium 3.6 mmol/L (3.4-5.0); Sodium 134 mmol/L (137-145); Triglycerides 208 mg/dL (<150)
[2024-03-01] MEDS: MEROPENEM 1 GM/NS 100 ML 1 GM/100 ML BAG IVPB (06:18)
[2024-03-01 06:36] LABS: Hypochromasia 1+; Platelet Estimate Adequate (Adequate); Schistocytes None Seen
[2024-03-01] MEDS: THIAMINE HCL 200 MG/2 ML VIAL 100 MG IV PUSH (09:14)
[2024-03-01] MEDS: PANTOPRAZOLE SODIUM IV 40 MG VIAL IV PUSH (09:14)
[2024-03-01] MEDS: NICOTINE (*PBKC) 21 MG PATCH 1 PATCH TRANSDERM (09:14)
[2024-03-01] MEDS: FOLIC ACID 1 MG/0.2 ML INJ IV PUSH (09:17)
--- NOTE | 2024-03-01 11:00 | PM.IMPN ---
Progress Note: A&P Assessment and Plan (1) Acute alcoholic pancreatitis: Qualifiers: Acute pancreatitis complication: no infection or necrosis Qualified Code(s): K85.20 - Alcohol induced acute pancreatitis without necrosis or infection Code(s): K85.20 - Alcohol induced acute pancreatitis without necrosis or infection Status: Acute Assessment and Plan: Patient presents with abdominal pain and found to have pancreatitis. Lipase 1100. CT A/P with contrast showing acute pancreatitis. [place] score 0 (no LDH drawn on admission) on admission. [place] 2 (BUN and fluid sequestration) at about 48hours GB was normal by CT. TG 198. [place] to be related to alcoholism. NPO. IV fluids started. Analgesics started. BP stable but felt he is 3rd spacing fluids. Repeat CT A/P without contrast showing significant progression of retroperitoneal inflammatory stranding and fluid centered around the pancreas consistent with worsening acute interstitial pancreatitis. Also with new small bilateral pleural effusions and small to moderate amount of ascites in the abdomen and pelvis likely related to acute pancreatitis. RUQ US showing 3cm liver mass, small right pleural effusion and small volume of ascites. Lipase peaked at 2750 but has trended to normal now. WBC climbed to 49K but trending down now. Elevated Hgb but better today. Developed LARRY but this has resolved as well BCx NGTD. Had paracentesis per GI with 400mL of dark brownish fluid removed. GI consulted and appreciate their input. BISAP was 3. Discussed with GI and they recommend patient being transferred to [place] given the severity. Call placed to [place] but they felt no reason to transfer unless patient's condition worsens. Did not move to ICU since clinically improving BP stable and HR normal Pateint with persistent nausea and has ileus/SBO so TPN started. Continue narcotics and wean as able. Continue supportive care. (2) SBO (small bowel obstruction): Code(s): K56.609 - Unspecified intestinal obstruction, unspecified as to partial versus complete obstruction Status: Acute Assessment and Plan: Repeat CT scan showing multiple mildly dilated loops of small bowel without discrete transition point most likely representing a secondary reactive ileus. Repeat abd xray showing SBO. NGT insert and placed on suction. General surgery consulted and appreciate their input. Repeat KUB this morning showing decreased SB distention Increase activity. (3) Peritonitis: Code(s): K65.9 - Peritonitis, unspecified Status: Acute Assessment and Plan: Patient noted to have small to moderate volume of ascites on repeat CT Paracentesis performed showing 5K red cells and 32K nucleated cells with 80% neutrophils Serum WBC up to 49K but better at 12K today. Gram stain showing moderate WBC but no micro organisms Consider peritonitis or related to pancreatitis. Cultures no growth BCx NGTD Continue meropenem to complete 7 days. (4) LARRY (acute kidney injury): Code(s): N17.9 - Acute kidney failure, unspecified Status: Acute Assessment and Plan: Cr normal as baseline. Cr climbed to 1.9 Did receive contrast on admission. Suspect more likely related to 3rd spacing SG 1.032. TCK 25. [place] 25. CT scan showing normal kidneys and bladder. He was on IVF 150 but increased to 200mL. Nephrology consulted. Repeat Cr back down to normal. Possible pre-renal from poor renal perfusion Off IVF and now on TPN. Follow (5) Electrolyte abnormality: Code(s): E87.8 - Other disorders of electrolyte and fluid balance, not elsewhere classified Status: Acute Assessment and Plan: Na normal on admission. Sodium trended down to 126 Again felt related to 3rd spacing. IV fluids rate advanced and sodium better at 134 and climbing at an appropriate rate Potassium was 5.6. Related to the LARRY and was treated appropriately. Repeat potassium
[2024-03-01 11:37] LABS: Glucose Point of Care 140 mg/dl (65-105)
--- NOTE | 2024-03-01 11:47 | PM.PNGS ---
Progress Note: A&P Assessment and Plan (1) SBO (small bowel obstruction): Code(s): K56.609 - Unspecified intestinal obstruction, unspecified as to partial versus complete obstruction Status: Acute Assessment and Plan: Plain films are improving. He appears less distended today and his abdominal pain is improving. Continue NG tube decompression, bowel rest, and TPN again today. Repeat imaging and exam tomorrow. If he continues to improve, we will consider ordering a water-soluble SBFT tomorrow. (2) Acute pancreatitis: Qualifiers: Acute pancreatitis complication: no infection or necrosis Pancreatitis type: alcohol induced Qualified Code(s): K85.20 - Alcohol induced acute pancreatitis without necrosis or infection Code(s): K85.90 - Acute pancreatitis without necrosis or infection, unspecified Status: Acute Assessment and Plan: Improving. Continue medical management with bowel rest, analgesics, and TPN. (3) Acute hypokalemia: Code(s): E87.6 - Hypokalemia Status: Acute Assessment and Plan: Replace as needed, trend labs. (4) Alcohol abuse: Code(s): F10.10 - Alcohol abuse, uncomplicated Status: Chronic (5) Leukocytosis: Qualifiers: Leukocytosis type: unspecified Qualified Code(s): D72.829 - Elevated white blood cell count, unspecified Code(s): D72.829 - Elevated white blood cell count, unspecified Status: Acute Assessment and Plan: Overall downward trend over the past 5 days. (6) Protein calorie malnutrition: Qualifiers: Protein-calorie malnutrition severity: severe Qualified Code(s): E43 - Unspecified severe protein-calorie malnutrition Code(s): E46 - Unspecified protein-calorie malnutrition Status: Acute Assessment and Plan: Continue TPN until able to resume eating normally. Plan I have discussed the patient's case and plan of care with Dr. Scott. Subjective Subjective Date/Time Seen: 03/01/24 11:47 Patient reports: no new complaints, feels better, pain is less, flatus, no bowel movement (for a few days) and afebrile Interval history: Patient feeling better today. He reports less abdominal pain and bloating. He is still passing flatus but no BM. No other complaints at this time. Exam Const: General: comfortable and no acute distress GI: Inspection: other (abdomen is much less distended) GI Palp: Yes Soft to palpation, Yes Tenderness to palpation present (GI) (minimal tenderness in the epigastric area), No Guarding due to palpation present (GI), Yes No hepatosplenomegaly present and No Rebound tenderness present Auscultation: Hypoactive bowel sounds present Objective Data Vital Signs Vital Signs: Vital Signs - 24 hr 02/29/24 12:00 02/29/24 12:00 02/29/24 14:00 Temperature 96.8 F L Pulse Rate 93 93 92 Pulse Rate [Monitor] Respiratory Rate 16 Blood Pressure 132/85 Pulse Oximetry 96 Oxygen Delivery Fraction of Inspired Oxygen 02/29/24 16:00 02/29/24 16:00 02/29/24 18:00 Temperature 98.3 F Pulse Rate 91 95 94 Pulse Rate [Monitor] Respiratory Rate 18 Blood Pressure 137/79 Pulse Oximetry 95 Oxygen Delivery Fraction of Inspired Oxygen 02/29/24 20:00 02/29/24 20:00 02/29/24 21:32 Temperature 98.1 F Pulse Rate 94 96 Pulse Rate [Monitor] 87 Respiratory Rate 18 18 Blood Pressure 137/79 140/93 H Pulse Oximetry 95 97 Oxygen Delivery Room Air Fraction of Inspired Oxygen 02/29/24 22:49 02/29/24 23:16 03/01/24 00:35 Temperature 97.6 F Pulse Rate 84 Pulse Rate [Monitor] 88 85 Respiratory Rate 18 Blood Pressure 129/79 Pulse Oximetry 96 Oxygen Delivery Fraction of Inspired Oxygen 02/29/24 20:00 02/29/24 22:00 03/01/24 00:00 Temperature Pulse Rate 88 87 88 Pulse Rate [Monitor] Respiratory Rate Blood Pressure Pulse Oximetry Oxygen Delivery Fraction of Inspired Oxy
--- NOTE | 2024-03-01 12:35 | PCNFU ---
Nutrition Follow-Up Complete: Need for alternative nutrition support related to altered GI function as evidenced by orders for PPN with NPO status Goal:Meet estimated needs - 50% or greater for caloric needs, 75% or greater for protein needs Advance diet PO when possible Pt progressing towards goal, continue with same goals. Pt current nutrition is NPO, PPN running at 80ml/hr = 1153kcals, 82g protein. Nutrition recommendation: advance diet po when appropriate Last recorded weight is 77.8 kg. Bowel Motility: +BM 02/28 Labs Reviewed: Hgb:12.3, HCT:36.4, NA:134, BUN:8, Cr:0.5 Meds Noted: protonix, zofran, KCL, thiamine Skin: WNL Additional Notes: Pt continues on the same PPN. No plans for diet advancement today. Pt is to start getting up and moving. Will monitor diet orders and PPN orders. Monitor PPN orders, labs, wt, diet advancement. Follow up every thursday and thursday
[2024-03-01] MEDS: AMINO ACIDS 4.25%/D5W/LYTES/CA 2,000 ML 80 ML IV CONT (14:16)
[2024-03-01] MEDS: FAT EMULSIONS IV 20% 250 ML 20.8 ML IVPB (14:17)
[2024-03-01] MEDS: cefTRIAXone 2 GM/NS 100 ML 2 GM/100 ML BAG IVPB (14:17)
--- NOTE | 2024-03-01 17:46 | WPDGIPROGNO ---
Progress Note: A&P Assessment and Plan (1) Acute alcoholic pancreatitis: Qualifiers: Acute pancreatitis complication: no infection or necrosis Qualified Code(s): K85.20 - Alcohol induced acute pancreatitis without necrosis or infection Code(s): K85.20 - Alcohol induced acute pancreatitis without necrosis or infection Status: Acute Assessment and Plan: severe alcoholic pancreatitis but clinically better- admission with hemoconcentration, larry, ascites with high neutrophils, leukocytosis and sirs renal function now normal, hgb stable 12 also ileus/sbo, on TPN and ngt to suction surgery on board, probably sbft tomorrow (2) Alcohol dependence: Code(s): F10.20 - Alcohol dependence, uncomplicated Status: Acute Assessment and Plan: this is third episode of pancreatitis (3) SBO (small bowel obstruction): Code(s): K56.609 - Unspecified intestinal obstruction, unspecified as to partial versus complete obstruction Status: Acute (4) Leukocytosis: Qualifiers: Leukocytosis type: unspecified Qualified Code(s): D72.829 - Elevated white blood cell count, unspecified Code(s): D72.829 - Elevated white blood cell count, unspecified Status: Acute Assessment and Plan: trending down (5) Protein calorie malnutrition: Qualifiers: Protein-calorie malnutrition severity: severe Qualified Code(s): E43 - Unspecified severe protein-calorie malnutrition Code(s): E46 - Unspecified protein-calorie malnutrition Status: Acute (6) LARRY (acute kidney injury): Code(s): N17.9 - Acute kidney failure, unspecified Status: Acute Assessment and Plan: resolved (7) SIRS (systemic inflammatory response syndrome): Code(s): R65.10 - Systemic inflammatory response syndrome (SIRS) of non-infectious origin without acute organ dysfunction Status: Acute Assessment and Plan: on admission (8) Peritonitis: Code(s): K65.9 - Peritonitis, unspecified Status: Acute Assessment and Plan: high neutrophils in ascites on iv abx, better Subjective Date/time seen: 03/01/24 17:46 Interval history: he is on tpn, ngt to suction overall feeling better, + flatus, less nausea and he is hungry Review of Systems Review of Systems: All systems reviewed & are unremarkable except as noted in HPI and below Exam Const: General: comfortable and no acute distress HENMT: Other: ngt in place Eyes: Sclera: sclerae normal Neck: Neck: supple Resp: Effort & Inspection: normal respiratory effort Cardio: Rate: regular rate GI: Inspection: other (abdomen is much less distended) GI Palp: Yes Soft to palpation, Yes Tenderness to palpation present (GI) (minimal tenderness in the epigastric area), No Guarding due to palpation present (GI) and No Rebound tenderness present Auscultation: Hypoactive bowel sounds present Skin: General skin exam: normal color Neuro: Speech: normal speech Motor exam (neuro): 5/5 motor strength present throughout Extrem: General: normal to inspection Psych: Mental Status: mental status grossly normal Objective Data Vital Signs Vital Signs: Vital Signs - 24 hr 02/29/24 18:00 02/29/24 20:00 02/29/24 20:00 Temperature Pulse Rate 94 94 Pulse Rate [Monitor] 87 Respiratory Rate 18 Blood Pressure 137/79 Pulse Oximetry 95 Oxygen Delivery Room Air Fraction of Inspired Oxygen 02/29/24 21:32 02/29/24 22:49 02/29/24 23:16 Temperature 98.1 F Pulse Rate 96 Pulse Rate [Monitor] 88 85 Respiratory Rate 18 Blood Pressure 140/93 H Pulse Oximetry 97 Oxygen Delivery Fraction of Inspired Oxygen 03/01/24 00:35 02/29/24 20:00 02/29/24 22:00 Temperature 97.6 F Pulse Rate 84 88 87 Pulse Rate [Monitor] Respiratory Rate 18 Blood Pressure 129/79 Pulse Oximetry 96 Oxygen Delivery Fraction of Inspired Oxygen 10/0
[2024-03-01 18:03] LABS: Glucose Point of Care 136 mg/dl (65-105)
[2024-03-01] MEDS: ACETAMINOPHEN 325 MG TABLET 650 MG PO (18:07)
[2024-03-01 23:57] LABS: Glucose Point of Care 143 mg/dl (65-105)
[2024-03-02] VITALS (11 sets, daily range): BP systolic 117–131; BP diastolic 65–81; PULSE 68–87; RESP 16–18; TEMP 36.1–36.8; O2SAT 95–96
[2024-03-02] MEDS: chlordiazePOXIDE (*CRX) 10 MG CAPSULE PO (00:03)
[2024-03-02] MEDS: LORazepam INJ (*CRX) 2 MG/ML VIAL 1 MG IV PUSH (00:22)
[2024-03-02 05:05] LABS: Basophils Absolute Auto 0.1 K/mm3 (0.0-0.1); Basophils Percent Auto 0.5 % (0.2-1.2); Eosinophils Absolute Auto 0.3 K/mm3 (0-0.3); Eosinophils Percent Auto 2.1 % (0-4.4); Hemoglobin 13.5 g/dL (14.0-18.0); Immature Granulocyte Absolute 1.44 K/mm3 (0.00-0.031); Immature Granulocyte Percent A 10.2 % (0-0.5); Lymphocytes Absolute Auto 2.08 K/mm3 (0.9-3.2); Lymphocytes Percent Auto 14.7 % (18.3-44.2); Mean Corpuscular HGB Conc 33.8 g/dl (32-36); Mean Corpuscular Hemoglobin 31.3 pg (26-34); Mean Corpuscular Volume 92.8 fl (80-100); Mean Platelet Volume 10.7 fl (7.4-10.4); Monocytes Absolute Auto 1.5 K/mm3 (0.1-0.6); Monocytes Percent Auto 10.5 % (2.6-8.5); Neutrophils Absolute Auto 8.8 K/mm3 (1.3-6.7); Platelet Count Result 257 k/mm3 (150-375); Red Blood Count 4.31 M/mm3 (4.6-6.20); Red Cell Distribution Width 14.5 % (11.5-14.5); White Blood Count 14.1 K/mm3 (4.5-10.0)
[2024-03-02 05:29] LABS: Platelet Estimate Adequate (Adequate)
[2024-03-02 05:30] LABS: Hypochromasia 1+; Schistocytes None Seen
[2024-03-02 05:37] LABS: Alanine Aminotransferase 16 U/L (6-50); Albumin Level 3.5 g/dL (3.5-5.1); Alkaline Phosphatase 103 U/L (38-126); Anion Gap 8 mmol/L (4-12); Aspartate Amino Transferase 27 U/L (17-59); Bilirubin,Total 0.8 mg/dL (0.2-1.3); Blood Urea Nitrogen 11 mg/dL (9-20); Calcium 8.9 mg/dL (8.4-10.2); Carbon Dioxide 29 mmol/L (22-30); Chloride 97 mmol/L (98-107); Estimated CRCL calculation 240 ml/min; Estimated Glomerular Filt Rate > 60; Glucose 162 mg/dL (65-110); Magnesium 2.3 mg/dL (1.6-2.3); Phosphorus 3.6 mg/dL (2.5-4.5); Sodium 134 mmol/L (137-145)
[2024-03-02] MEDS: FOLIC ACID 1 MG/0.2 ML INJ IV PUSH (08:51)
[2024-03-02] MEDS: THIAMINE HCL 200 MG/2 ML VIAL 100 MG IV PUSH (08:51)
[2024-03-02] MEDS: PANTOPRAZOLE SODIUM IV 40 MG VIAL IV PUSH (08:51)
[2024-03-02] MEDS: NICOTINE (*PBKC) 21 MG PATCH 1 PATCH TRANSDERM (08:51)
[2024-03-02] MEDS: HYDROmorphone HCL INJ (*CRX) 1 MG/ML SYR 0.5 MG IV PUSH ×2 (08:59→13:05)
--- NOTE | 2024-03-02 12:35 | PC.NURSE ---
This patient, Alonso Bender, was received from IMU on 03/02/24 at 1235. Patient/family oriented to unit policies and routines.
[2024-03-02 13:09] LABS: Glucose Point of Care 166 mg/dl (65-105)
[2024-03-02] MEDS: cefTRIAXone 2 GM/NS 100 ML 2 GM/100 ML BAG IVPB (13:52)
[2024-03-02] MEDS: FAT EMULSIONS IV 20% 250 ML 20.8 ML IVPB (13:53)
[2024-03-02] MEDS: AMINO ACIDS 4.25%/D5W/LYTES/CA 2,000 ML 80 ML IV CONT (13:55)
--- NOTE | 2024-03-02 14:16 | PM.IMPN ---
Progress Note: A&P Assessment and Plan (1) Acute alcoholic pancreatitis: Qualifiers: Acute pancreatitis complication: no infection or necrosis Qualified Code(s): K85.20 - Alcohol induced acute pancreatitis without necrosis or infection Code(s): K85.20 - Alcohol induced acute pancreatitis without necrosis or infection Status: Acute Assessment and Plan: Patient presents with abdominal pain and found to have pancreatitis. Lipase 1100. CT A/P with contrast showing acute pancreatitis. [place] score 0 (no LDH drawn on admission) on admission. [place] 2 (BUN and fluid sequestration) at about 48hours GB was normal by CT. TG 198. [place] to be related to alcoholism. NPO. IV fluids started. Analgesics started. BP stable but felt he is 3rd spacing fluids. Repeat CT A/P without contrast showing significant progression of retroperitoneal inflammatory stranding and fluid centered around the pancreas consistent with worsening acute interstitial pancreatitis. Also with new small bilateral pleural effusions and small to moderate amount of ascites in the abdomen and pelvis likely related to acute pancreatitis. RUQ US showing 3cm liver mass, small right pleural effusion and small volume of ascites. Patient with persistent nausea and has ileus/SBO so TPN started. Continue narcotics and wean as able. Continue supportive care. (2) SBO (small bowel obstruction): Code(s): K56.609 - Unspecified intestinal obstruction, unspecified as to partial versus complete obstruction Status: Acute Assessment and Plan: Repeat CT scan showing multiple mildly dilated loops of small bowel without discrete transition point most likely representing a secondary reactive ileus. Repeat abd xray showing SBO. NGT insert and placed on suction. General surgery consulted and appreciate their input. Hopefully NG can be removed (3) Peritonitis: Code(s): K65.9 - Peritonitis, unspecified Status: Acute Assessment and Plan: Patient noted to have small to moderate volume of ascites on repeat CT Paracentesis performed showing 5K red cells and 32K nucleated cells with 80% neutrophils Serum WBC up to 49K but better at 12K today. Gram stain showing moderate WBC but no micro organisms Consider peritonitis or related to pancreatitis. Cultures no growth BCx NGTD pt completed merem (4) LARRY (acute kidney injury): Code(s): N17.9 - Acute kidney failure, unspecified Status: Acute Assessment and Plan: resolved with fluids and TPN (5) Electrolyte abnormality: Code(s): E87.8 - Other disorders of electrolyte and fluid balance, not elsewhere classified Status: Acute Assessment and Plan: Na normal on admission. Sodium trended down to 127 (6) Alcohol withdrawal: Qualifiers: Complication of substance-induced condition: with unspecified complication Qualified Code(s): F10.939 - Alcohol use, unspecified with withdrawal, unspecified Code(s): F10.939 - Alcohol use, unspecified with withdrawal, unspecified Status: Acute Assessment and Plan: CIWA protocol started. Scheduled Librium started. CIWA 0-3 but 15 last night and received Ativan. Monitor symptoms closely since on benzo and narcotics. Continue thiamine and folate. Continue to monitor (7) SIRS (systemic inflammatory response syndrome): Code(s): R65.10 - Systemic inflammatory response syndrome (SIRS) of non-infectious origin without acute organ dysfunction Status: Acute Assessment and Plan: Noted on admission with leukocytosis, tachycardia, lactic acidosis. WBC up to 49K. Lactic peaked at 4.3 Zosyn started on admission but changed to meroprenem CT A/P again showing worsening pancreatitis Source felt related to pancreatitis; consider sepsis from peritonitis. UCx negative. BCx NGTD completed merem (8) Lactic acidosis: Code(s): E87.20 - Acidosis, unspec
--- NOTE | 2024-03-02 15:04 | PM.PNGS ---
Progress Note: A&P Assessment and Plan (1) SBO (small bowel obstruction): Code(s): K56.609 - Unspecified intestinal obstruction, unspecified as to partial versus complete obstruction Status: Acute Assessment and Plan: Plain films have been improving over the past few days. Patient was down in Radiology for the small bowel series. I discussed the patient's case with Dr. Scott. Continue NG tube decompression, bowel rest, and TPN for now. Will await results of the SBS. (2) Acute pancreatitis: Qualifiers: Acute pancreatitis complication: no infection or necrosis Pancreatitis type: alcohol induced Qualified Code(s): K85.20 - Alcohol induced acute pancreatitis without necrosis or infection Code(s): K85.90 - Acute pancreatitis without necrosis or infection, unspecified Status: Acute (3) Alcohol abuse: Code(s): F10.10 - Alcohol abuse, uncomplicated Status: Chronic (4) Protein calorie malnutrition: Qualifiers: Protein-calorie malnutrition severity: severe Qualified Code(s): E43 - Unspecified severe protein-calorie malnutrition Code(s): E46 - Unspecified protein-calorie malnutrition Status: Acute Assessment and Plan: Continue TPN Subjective Subjective Date/Time Seen: 03/02/24 12:24 Interval history: I went by the patient's room and he was down in Radiology for the small bowel series. Objective Data Vital Signs Vital Signs: Vital Signs - 24 hr 03/01/24 16:00 03/01/24 16:00 03/01/24 18:00 Temperature 98.4 F Pulse Rate 84 84 95 Pulse Rate [Monitor] Respiratory Rate 16 Blood Pressure 136/82 Pulse Oximetry 97 Oxygen Delivery 03/01/24 16:00 03/01/24 16:00 03/01/24 20:55 Temperature 98.4 F Pulse Rate 95 75 Pulse Rate [Monitor] 84 Respiratory Rate 16 Blood Pressure 120/80 Pulse Oximetry 97 97 Oxygen Delivery Room Air 03/01/24 20:00 03/01/24 20:00 03/01/24 20:00 Temperature Pulse Rate 79 Pulse Rate [Monitor] 79 Respiratory Rate Blood Pressure Pulse Oximetry Oxygen Delivery Room Air 03/01/24 22:00 03/02/24 00:00 03/02/24 00:00 Temperature Pulse Rate 76 77 Pulse Rate [Monitor] 77 Respiratory Rate Blood Pressure Pulse Oximetry Oxygen Delivery 03/02/24 00:00 03/02/24 00:00 03/02/24 02:00 Temperature 97.7 F Pulse Rate 78 77 Pulse Rate [Monitor] Respiratory Rate 16 Blood Pressure 120/65 Pulse Oximetry 96 Oxygen Delivery Room Air 03/02/24 05:54 03/02/24 04:00 03/02/24 04:00 Temperature 97.7 F Pulse Rate 87 82 Pulse Rate [Monitor] Respiratory Rate 16 Blood Pressure 131/81 Pulse Oximetry 95 Oxygen Delivery Room Air 03/02/24 06:00 03/02/24 07:22 03/02/24 08:00 Temperature 98.3 F Pulse Rate 76 80 83 Pulse Rate [Monitor] Respiratory Rate 16 Blood Pressure 120/77 Pulse Oximetry 96 Oxygen Delivery 03/02/24 08:00 03/02/24 10:00 Temperature Pulse Rate 85 Pulse Rate [Monitor] Respiratory Rate Blood Pressure Pulse Oximetry Oxygen Delivery Room Air Intake/Output Intake/Output: Intake & Output 02/28/24 02/29/24 03/01/24 03/02/24 23:59 23:59 23:59 23:59 Intake Total 2889.3 2457.3 2382 2202 Output Total 4920 6450 4400 1850 Balance -2030.7 -3992.7 352 Meds/Results Medications: Active Medications Generic Name Dose Route Start Last Admin Trade Name Freq PRN Reason Stop Dose Admin Acetaminophen 650 mg 02/23/24 20:26 03/01/24 18:07 Acetaminophen 325 Mg Tablet PO 650 mg Q6H PRN Administration Mild Pain (1-3) or Fever Chlordiazepoxide HCl 10 mg 02/28/24 13:29 03/02/24 00:03 Chlordiazepoxide (*Crx) 10 Mg Capsule PO 10 mg Q6H PRN Administration Withdrawal & elevated CIWA Dextrose 12.5 gm 02/27/24 13:06 Dextrose 50% 25 Gm/50 Ml Syringe IV PUSH PRN PRN Hypoglycemia Protocol Folic Acid 1 mg 02/29/24 09:00 10
--- NOTE | 2024-03-02 16:26 | WPDGIPROGNO ---
Progress Note: A&P Assessment and Plan (1) Acute alcoholic pancreatitis: Qualifiers: Acute pancreatitis complication: no infection or necrosis Qualified Code(s): K85.20 - Alcohol induced acute pancreatitis without necrosis or infection Code(s): K85.20 - Alcohol induced acute pancreatitis without necrosis or infection Status: Acute Assessment and Plan: severe alcoholic pancreatitis but clinically better- admission with hemoconcentration, larry, ascites with high neutrophils, leukocytosis and sirs renal function now normal, hgb stable 12-13 sbft no obvious obstruction, no more nausea- will remove ngt and monitor on tpn for now (2) Alcohol dependence: Code(s): F10.20 - Alcohol dependence, uncomplicated Status: Acute Assessment and Plan: this is third episode of pancreatitis (3) SBO (small bowel obstruction): Code(s): K56.609 - Unspecified intestinal obstruction, unspecified as to partial versus complete obstruction Status: Acute Assessment and Plan: sbft reviewed- ileus but passing gas surgery on board (4) Leukocytosis: Qualifiers: Leukocytosis type: unspecified Qualified Code(s): D72.829 - Elevated white blood cell count, unspecified Code(s): D72.829 - Elevated white blood cell count, unspecified Status: Acute Assessment and Plan: trending down (5) Protein calorie malnutrition: Qualifiers: Protein-calorie malnutrition severity: severe Qualified Code(s): E43 - Unspecified severe protein-calorie malnutrition Code(s): E46 - Unspecified protein-calorie malnutrition Status: Acute (6) LARRY (acute kidney injury): Code(s): N17.9 - Acute kidney failure, unspecified Status: Acute Assessment and Plan: resolved (7) SIRS (systemic inflammatory response syndrome): Code(s): R65.10 - Systemic inflammatory response syndrome (SIRS) of non-infectious origin without acute organ dysfunction Status: Acute Assessment and Plan: on admission (8) Peritonitis: Code(s): K65.9 - Peritonitis, unspecified Status: Acute Assessment and Plan: high neutrophils in ascites on iv abx, better Subjective Date/time seen: 03/02/24 16:26 Interval history: doing better, he is hungry, complaining of sore throat because ngt Review of Systems Review of Systems: All systems reviewed & are unremarkable except as noted in HPI and below Exam Const: General: comfortable and no acute distress HENMT: Other: ngt in place Eyes: Sclera: sclerae normal Neck: Neck: supple Resp: Effort & Inspection: normal respiratory effort Cardio: Rate: regular rate GI: Inspection: other (abdomen is much less distended) GI Palp: Yes Soft to palpation, Yes Tenderness to palpation present (GI) (minimal tenderness in the epigastric area), No Guarding due to palpation present (GI) and No Rebound tenderness present Auscultation: Hypoactive bowel sounds present Skin: General skin exam: normal color Neuro: Speech: normal speech Motor exam (neuro): 5/5 motor strength present throughout Extrem: General: normal to inspection Psych: Mental Status: mental status grossly normal Objective Data Vital Signs Vital Signs: Vital Signs - 24 hr 03/01/24 18:00 03/01/24 20:55 03/01/24 20:00 Temperature 98.4 F Pulse Rate 95 75 79 Pulse Rate [Monitor] Respiratory Rate 16 Blood Pressure 120/80 Pulse Oximetry 97 Oxygen Delivery 03/01/24 20:00 03/01/24 20:00 03/01/24 22:00 Temperature Pulse Rate 76 Pulse Rate [Monitor] 79 Respiratory Rate Blood Pressure Pulse Oximetry Oxygen Delivery Room Air 03/02/24 00:00 03/02/24 00:00 03/02/24 00:00 Temperature Pulse Rate 77 Pulse Rate [Monitor] 77 Respiratory Rate Blood Pressure Pulse Oximetry Oxygen Delivery Room Air 03/02/24 00:00 03/02/24 02:00 03/02/24 05:54 [place]
[2024-03-02 17:09] LABS: Glucose Point of Care 125 mg/dl (65-105)
[2024-03-02] MEDS: HYDROmorphone HCL INJ (*CRX) 1 MG/ML SYR IV PUSH ×2 (17:57→22:16)
[2024-03-02] MEDS: ENOXAPARIN 30 MG/0.3 ML SYRINGE SUB-Q (21:51)
[2024-03-03] VITALS: PULSE 76
[2024-03-03 00:39] LABS: Glucose Point of Care 183 mg/dl (65-105)
[2024-03-03 04:00] VITALS: PULSE 77
[2024-03-03] MEDS: HYDROmorphone HCL INJ (*CRX) 1 MG/ML SYR IV PUSH ×4 (04:59→18:14)
[2024-03-03 06:28] VITALS: BP 112/72; PULSE 77; RESP 16; TEMP 36.4; O2SAT 93
[2024-03-03 06:36] LABS: Hematocrit 39.9 % (42.0-52.0); Hemoglobin 13.2 g/dL (14.0-18.0); Mean Corpuscular HGB Conc 33.1 g/dl (32-36); Mean Corpuscular Hemoglobin 31.4 pg (26-34); Mean Corpuscular Volume 94.8 fl (80-100); Mean Platelet Volume 10.6 fl (7.4-10.4); Platelet Count Result 342 k/mm3 (150-375); Red Blood Count 4.21 M/mm3 (4.6-6.20); Red Cell Distribution Width 14.7 % (11.5-14.5); White Blood Count 15.7 K/mm3 (4.5-10.0)
[2024-03-03 06:58] LABS: Carbon Dioxide 28 mmol/L (22-30); Chloride 99 mmol/L (98-107); Potassium 4.1 mmol/L (3.4-5.0); Sodium 133 mmol/L (137-145)
[2024-03-03 06:59] LABS: Alanine Aminotransferase 21 U/L (6-50); Albumin Level 3.5 g/dL (3.5-5.1); Alkaline Phosphatase 96 U/L (38-126); Anion Gap 6 mmol/L (4-12); Aspartate Amino Transferase 30 U/L (17-59); Bilirubin,Total 0.5 mg/dL (0.2-1.3); Blood Urea Nitrogen 16 mg/dL (9-20); Calcium 8.7 mg/dL (8.4-10.2); Estimated CRCL calculation 197 ml/min; Estimated Glomerular Filt Rate > 60; Glucose 165 mg/dL (65-110); Lipase 437 U/L (23-300); Magnesium 2.3 mg/dL (1.6-2.3); Triglycerides 235 mg/dL (<150)
[2024-03-03 07:35] LABS: Band Neutrophils Percent 2 % (0-6); Eosinophils Absolute Manual 0.31 K/mm3 (0.02-0.50); Eosinophils Percent Manual 2 % (0-4); Lymphocytes Absolute Manual 2.19 K/mm3 (1.1-4.5); Lymphocytes Percent Manual 14 % (18-44); Monocytes Absolute Manual 1.09 K/mm3 (0.1-0.90); Monocytes Percent Manual 7 % (3-9); Neutrophils Absolute Manual 12.08 K/mm3 (1.3-6.7); Neutrophils Percent Manual 75 % (46-73); Platelet Estimate Adequate (Adequate); Schistocytes None Seen; Total Cells Counted 100
[2024-03-03 07:36] LABS: Atypical Lymphocytes Present
[2024-03-03 07:38] LABS: Glucose Point of Care 150 mg/dl (65-105)
[2024-03-03] MEDS: PANTOPRAZOLE 40 MG TABLET PO (08:37)
[2024-03-03] MEDS: NICOTINE (*PBKC) 21 MG PATCH 1 PATCH TRANSDERM (08:37)
[2024-03-03] MEDS: ENOXAPARIN 40 MG/0.4 ML SYRINGE SUB-Q (08:37)
[2024-03-03] MEDS: THIAMINE HCL 200 MG/2 ML VIAL 100 MG IV PUSH (08:37)
[2024-03-03 09:41] VITALS: O2SAT 93
[2024-03-03 11:39] LABS: Glucose Point of Care 228 mg/dl (65-105)
[2024-03-03 12:00] VITALS: PULSE 82
--- NOTE | 2024-03-03 14:11 | PM.PNGS ---
Progress Note: A&P Assessment and Plan (1) SBO (small bowel obstruction): Code(s): K56.609 - Unspecified intestinal obstruction, unspecified as to partial versus complete obstruction Status: Acute Assessment and Plan: SBS showed slow transit but contrast made it to the colon between 3-4 hours. He is moving his bowels. No evidence of a small bowel obstruction. No indication for surgical intervention. GI is managing his diet and pancreatitis. We will sign off at this time. Please call with any surgical concerns. (2) Acute pancreatitis: Qualifiers: Acute pancreatitis complication: no infection or necrosis Pancreatitis type: alcohol induced Qualified Code(s): K85.20 - Alcohol induced acute pancreatitis without necrosis or infection Code(s): K85.90 - Acute pancreatitis without necrosis or infection, unspecified Status: Acute (3) Alcohol abuse: Code(s): F10.10 - Alcohol abuse, uncomplicated Status: Chronic (4) Protein calorie malnutrition: Qualifiers: Protein-calorie malnutrition severity: severe Qualified Code(s): E43 - Unspecified severe protein-calorie malnutrition Code(s): E46 - Unspecified protein-calorie malnutrition Status: Acute Plan I have discussed the patient's case and plan of care with Dr. Scott. Subjective Subjective Date/Time Seen: 03/03/24 14:11 Patient reports: tolerating liquids well, flatus and bowel movement Interval history: Patient seen today on full liquids. He reports he is tolerating his diet. No nausea or vomiting. He estimates about 20 bowel movements since the contrast test yesterday. Only complaint is mild epigastric pain. No other complaints at this time. Exam Const: General: comfortable and no acute distress Orientation/consciousness: patient oriented x3 GI: Inspection: non-distended GI Palp: Yes Soft to palpation, No Tenderness to palpation present (GI) and No Guarding due to palpation present (GI) Auscultation: normal bowel sounds Objective Data Vital Signs Vital Signs: Vital Signs - 24 hr 03/02/24 16:00 03/02/24 22:18 03/02/24 20:00 Temperature 97.0 F L 97.3 F L Pulse Rate 68 80 Pulse Rate [Monitor] 80 Respiratory Rate 18 16 Blood Pressure 128/78 117/75 Pulse Oximetry 95 95 Oxygen Delivery 03/03/24 00:00 03/03/24 06:28 03/03/24 04:00 Temperature 97.5 F L Pulse Rate 77 Pulse Rate [Monitor] 76 77 Respiratory Rate 16 Blood Pressure 112/72 Pulse Oximetry 93 Oxygen Delivery 03/03/24 09:41 03/03/24 12:00 Temperature Pulse Rate Pulse Rate [Monitor] 82 Respiratory Rate Blood Pressure Pulse Oximetry 93 Oxygen Delivery Room Air Intake/Output Intake/Output: Intake & Output 02/29/24 03/01/24 03/02/24 03/03/24 23:59 23:59 23:59 23:59 Intake Total 2457.3 2382 2442 168 Output Total 6450 4400 1850 [facility] -3992.7 592 168 Meds/Results Medications: Active Medications Generic Name Dose Route Start Last Admin Trade Name Freq PRN Reason Stop Dose Admin Acetaminophen 650 mg 02/23/24 20:26 03/01/24 18:07 Acetaminophen 325 Mg Tablet PO 650 mg Q6H PRN Administration Mild Pain (1-3) or Fever Chlordiazepoxide HCl 10 mg 02/28/24 13:29 03/02/24 00:03 Chlordiazepoxide (*Crx) 10 Mg Capsule PO 10 mg Q6H PRN Administration Withdrawal & elevated CIWA Dextrose 12.5 gm 02/27/24 13:06 Dextrose 50% 25 Gm/50 Ml Syringe IV PUSH PRN PRN Hypoglycemia Protocol Enoxaparin Sodium 40 mg 03/03/24 09:00 03/03/24 08:37 Enoxaparin 40 Mg/0.4 Ml Syringe SUB-Q 40 mg DAILY CECY Administration Folic Acid 1 mg 02/29/24 09:00 03/02/24 08:51 Folic Acid 1 Mg/0.2 Ml Inj IV PUSH 1 mg DAILY CECY Administration Glucagon 1 mg 02/27/24 13:06 Glucagon For Inj 1 Mg Vial IM PRN PRN Hypoglycemia Protocol Glucose 15 gm 02/27/24 13:06 Glucose Oral Gel 15 Gm Of Glucse In 37.5 Gm Tube
--- NOTE | 2024-03-03 14:13 | PM.IMPN ---
Progress Note: A&P Assessment and Plan (1) Acute alcoholic pancreatitis: Qualifiers: Acute pancreatitis complication: no infection or necrosis Qualified Code(s): K85.20 - Alcohol induced acute pancreatitis without necrosis or infection Code(s): K85.20 - Alcohol induced acute pancreatitis without necrosis or infection Status: Acute Assessment and Plan: Patient presents with abdominal pain and found to have pancreatitis. Lipase 1100. CT A/P with contrast showing acute pancreatitis. [place] score 0 (no LDH drawn on admission) on admission. [place] 2 (BUN and fluid sequestration) at about 48hours GB was normal by CT. TG 198. [place] to be related to alcoholism. NPO. IV fluids started. Analgesics started. BP stable but felt he is 3rd spacing fluids. Repeat CT A/P without contrast showing significant progression of retroperitoneal inflammatory stranding and fluid centered around the pancreas consistent with worsening acute interstitial pancreatitis. Also with new small bilateral pleural effusions and small to moderate amount of ascites in the abdomen and pelvis likely related to acute pancreatitis. RUQ US showing 3cm liver mass, small right pleural effusion and small volume of ascites. Patient with persistent nausea and has ileus/SBO so TPN started. Continue narcotics and wean as able. Continue supportive care. NG out TPN going Pt on clears sp SBT watch for another 1-2 days and DC (2) SBO (small bowel obstruction): Code(s): K56.609 - Unspecified intestinal obstruction, unspecified as to partial versus complete obstruction Status: Acute Assessment and Plan: Repeat CT scan showing multiple mildly dilated loops of small bowel without discrete transition point most likely representing a secondary reactive ileus. Repeat abd xray showing SBO. NGT insert and placed on suction. General surgery consulted and appreciate their input. NG is out (3) Peritonitis: Code(s): K65.9 - Peritonitis, unspecified Status: Acute Assessment and Plan: Patient noted to have small to moderate volume of ascites on repeat CT Paracentesis performed showing 5K red cells and 32K nucleated cells with 80% neutrophils Serum WBC up to 49K but better at 12K today. Gram stain showing moderate WBC but no micro organisms Consider peritonitis or related to pancreatitis. Cultures no growth BCx NGTD pt completed merem (4) LARRY (acute kidney injury): Code(s): N17.9 - Acute kidney failure, unspecified Status: Acute Assessment and Plan: resolved with fluids and TPN (5) Electrolyte abnormality: Code(s): E87.8 - Other disorders of electrolyte and fluid balance, not elsewhere classified Status: Acute Assessment and Plan: Sodium is 133 (6) Alcohol withdrawal: Qualifiers: Complication of substance-induced condition: with unspecified complication Qualified Code(s): F10.939 - Alcohol use, unspecified with withdrawal, unspecified Code(s): F10.939 - Alcohol use, unspecified with withdrawal, unspecified Status: Acute Assessment and Plan: CIWA protocol started. Scheduled Librium started. CIWA 0-3 but 15 last night and received Ativan. Monitor symptoms closely since on benzo and narcotics. Continue thiamine and folate. Continue to monitor (7) SIRS (systemic inflammatory response syndrome): Code(s): R65.10 - Systemic inflammatory response syndrome (SIRS) of non-infectious origin without acute organ dysfunction Status: Acute Assessment and Plan: Noted on admission with leukocytosis, tachycardia, lactic acidosis. WBC up to 49K. Lactic peaked at 4.3 Zosyn started on admission but changed to meroprenem CT A/P again showing worsening pancreatitis Source felt related to pancreatitis; consider sepsis from peritonitis. UCx negative. BCx NGTD completed merem (8) Lactic acidosis: Code(s):
--- NOTE | 2024-03-03 14:29 | WPDGIPROGNO ---
Progress Note: A&P Assessment and Plan (1) Acute alcoholic pancreatitis: Qualifiers: Acute pancreatitis complication: no infection or necrosis Qualified Code(s): K85.20 - Alcohol induced acute pancreatitis without necrosis or infection Code(s): K85.20 - Alcohol induced acute pancreatitis without necrosis or infection Status: Acute Assessment and Plan: severe alcoholic pancreatitis but clinically better- admission with hemoconcentration, [place], ascites with high neutrophils, leukocytosis and sirs renal function now normal, hgb stable 12-13 advancing diet and he is tolerating, we can discontinue tpn (2) Alcohol dependence: Code(s): F10.20 - Alcohol dependence, uncomplicated Status: Acute Assessment and Plan: supportive care, thiamine, nutrition support (3) SBO (small bowel obstruction): Code(s): K56.609 - Unspecified intestinal obstruction, unspecified as to partial versus complete obstruction Status: Acute Assessment and Plan: sbft reviewed no more signs of sbo and symptomatically better (4) Leukocytosis: Qualifiers: Leukocytosis type: unspecified Qualified Code(s): D72.829 - Elevated white blood cell count, unspecified Code(s): D72.829 - Elevated white blood cell count, unspecified Status: Acute Assessment and Plan: trending down (5) Protein calorie malnutrition: Qualifiers: Protein-calorie malnutrition severity: severe Qualified Code(s): E43 - Unspecified severe protein-calorie malnutrition Code(s): E46 - Unspecified protein-calorie malnutrition Status: Acute Assessment and Plan: eating now (6) SIRS (systemic inflammatory response syndrome): Code(s): R65.10 - Systemic inflammatory response syndrome (SIRS) of non-infectious origin without acute organ dysfunction Status: Acute Assessment and Plan: on admission resolved (7) Peritonitis: Code(s): K65.9 - Peritonitis, unspecified Status: Acute Assessment and Plan: high neutrophils in ascites on iv abx, better Subjective Date/time seen: 03/03/24 14:29 Interval history: tolerating liquid diet, no more nausea he had several loose stools after sbft and contrast he ingested he is doing much better Review of Systems Review of Systems: All systems reviewed & are unremarkable except as noted in HPI and below Exam Const: General: comfortable and no acute distress Orientation/consciousness: patient oriented x3 HENMT: Face/Nose/Sinus: Normal nares present Eyes: Sclera: sclerae normal Neck: Neck: supple Resp: Effort & Inspection: normal respiratory effort Cardio: Rate: regular rate GI: Inspection: non-distended GI Palp: Yes Soft to palpation, No Tenderness to palpation present (GI) and No Guarding due to palpation present (GI) Auscultation: normal bowel sounds Skin: General skin exam: normal color Neuro: Speech: normal speech Motor exam (neuro): 5/5 motor strength present throughout Extrem: General: normal to inspection Psych: Mental Status: mental status grossly normal Objective Data Vital Signs Vital Signs: Vital Signs - 24 hr 03/02/24 16:00 03/02/24 22:18 03/02/24 20:00 Temperature 97.0 F L 97.3 F L Pulse Rate 68 80 Pulse Rate [Monitor] 80 Respiratory Rate 18 16 Blood Pressure 128/78 117/75 Pulse Oximetry 95 95 Oxygen Delivery 03/03/24 00:00 03/03/24 06:28 03/03/24 04:00 Temperature 97.5 F L Pulse Rate 77 Pulse Rate [Monitor] 76 77 Respiratory Rate 16 Blood Pressure 112/72 Pulse Oximetry 93 Oxygen Delivery 03/03/24 09:41 03/03/24 12:00 Temperature Pulse Rate Pulse Rate [Monitor] 82 Respiratory Rate Blood Pressure Pulse Oximetry 93 Oxygen Delivery Room Air Intake/Output Intake/Output: Intake & Output 02/29/24 03/01/24 03/02/24 03/03/24 23:59 23:59 23:59 23:59 Intake Total 2457.3 2382 2442 168 Output
[2024-03-03 16:00] VITALS: BP 104/57; PULSE 78; RESP 14; TEMP 36.2; O2SAT 97
[2024-03-03 17:37] LABS: Glucose Point of Care 142 mg/dl (65-105)
[2024-03-04] VITALS: BP 113/70; PULSE 79; RESP 14; TEMP 36.2; O2SAT 97
[2024-03-04 00:05] LABS: Glucose Point of Care 115 mg/dl (65-105)
[2024-03-04] MEDS: HYDROmorphone HCL INJ (*CRX) 1 MG/ML SYR 0.5 MG IV PUSH (03:57)
[2024-03-04 06:09] LABS: Hemoglobin 13.2 g/dL (14.0-18.0); Mean Corpuscular HGB Conc 33.8 g/dl (32-36); Mean Corpuscular Hemoglobin 32.4 pg (26-34); Mean Corpuscular Volume 95.6 fl (80-100); Mean Platelet Volume 10.7 fl (7.4-10.4); Platelet Count Result 400 k/mm3 (150-375); Red Blood Count 4.08 M/mm3 (4.6-6.20); Red Cell Distribution Width 14.8 % (11.5-14.5); White Blood Count 15.6 K/mm3 (4.5-10.0)
[2024-03-04 06:24] LABS: Alanine Aminotransferase 22 U/L (6-50); Albumin Level 3.5 g/dL (3.5-5.1); Alkaline Phosphatase 97 U/L (38-126); Anion Gap 7 mmol/L (4-12); Aspartate Amino Transferase 42 U/L (17-59); Bilirubin,Total 0.8 mg/dL (0.2-1.3); Blood Urea Nitrogen 10 mg/dL (9-20); Calcium 8.9 mg/dL (8.4-10.2); Carbon Dioxide 29 mmol/L (22-30); Chloride 99 mmol/L (98-107); Estimated CRCL calculation 167 ml/min; Estimated Glomerular Filt Rate > 60; Glucose 148 mg/dL (65-110); Magnesium 2.2 mg/dL (1.6-2.3); Potassium 4.2 mmol/L (3.4-5.0); Sodium 135 mmol/L (137-145)
[2024-03-04 06:38] LABS: Band Neutrophils Percent 5 % (0-6); Eosinophils Absolute Manual 0.46 K/mm3 (0.02-0.50); Eosinophils Percent Manual 3 % (0-4); Lymphocytes Absolute Manual 2.18 K/mm3 (1.1-4.5); Lymphocytes Percent Manual 14 % (18-44); Monocytes Absolute Manual 1.09 K/mm3 (0.1-0.90); Monocytes Percent Manual 7 % (3-9); Neutrophils Absolute Manual 11.85 K/mm3 (1.3-6.7); Neutrophils Percent Manual 71 % (46-73); Platelet Estimate Increased (Adequate); Total Cells Counted 100
[2024-03-04 06:39] LABS: Anisocytosis 1+; Atypical Lymphocytes Present; Schistocytes None Seen
[2024-03-04 08:00] VITALS: BP 110/67; PULSE 74; RESP 18; TEMP 35.6; O2SAT 98
[2024-03-04 11:19] LABS: Lipase 461 U/L (23-300)
[2024-03-04] MEDS: PANTOPRAZOLE 40 MG TABLET PO (11:55)
[2024-03-04] MEDS: NICOTINE (*PBKC) 21 MG PATCH 1 PATCH TRANSDERM (11:56)
[2024-03-04] MEDS: ENOXAPARIN 40 MG/0.4 ML SYRINGE SUB-Q (11:56)
[2024-03-04] MEDS: HYDROcodone/acetaminophen (*CRX) 5-325 MG TABLET 1 TAB PO ×2 (11:56→18:29)
--- NOTE | 2024-03-04 11:57 | PCNFU ---
Nutrition Follow-Up Complete: Need for alternative nutrition support related to altered GI function as evidenced by orders for PPN with NPO status Meet estimated needs - 50% or greater for caloric needs, 75% or greater for protein needs Advance diet PO when possible - Goal is met. New goal: PO intake at or >75% meals Goal: Pt current nutrition is Low Fat diet. PPN is OFF. Intakes 80-100% since advanced. Nutrition recommendation: No new nutrition recommendations. Continue with regular diet. Agree with orders Last recorded weight is 75.2 kg. Bowel Motility: +1 BM 10 Labs Reviewed: Hgb 13.2, Hct 39, Na 135, Cre 0.6, 148 Meds Noted: protonix, Zofran, Kcl, thiamine Skin: No skin issues Additional Notes: PPN is discontinued and diet is advanced to Low Fat. Ate breakfast. Probable discharge soon. Continue to monitor Monitor PPN orders, labs, wt, diet advancement. Follow up every thursday and thursday
--- NOTE | 2024-03-04 14:32 | PM.IMPN ---
Progress Note: A&P Assessment and Plan (1) Acute alcoholic pancreatitis: Qualifiers: Acute pancreatitis complication: no infection or necrosis Qualified Code(s): K85.20 - Alcohol induced acute pancreatitis without necrosis or infection Code(s): K85.20 - Alcohol induced acute pancreatitis without necrosis or infection Status: Acute Assessment and Plan: Patient presents with abdominal pain and found to have pancreatitis. Lipase 1100. CT A/P with contrast showing acute pancreatitis. [place] score 0 (no LDH drawn on admission) on admission. [place] 2 (BUN and fluid sequestration) at about 48hours GB was normal by CT. TG 198. [place] to be related to alcoholism. NPO. IV fluids started. Analgesics started. BP stable but felt he is 3rd spacing fluids. Repeat CT A/P 02/25/2024 without contrast showing significant progression of retroperitoneal inflammatory stranding and fluid centered around the pancreas consistent with worsening acute interstitial pancreatitis. Also with new small bilateral pleural effusions and small to moderate amount of ascites in the abdomen and pelvis likely related to acute pancreatitis. RUQ US showing 3cm liver mass, small right pleural effusion and small volume of ascites. Patient with persistent nausea and has ileus/SBO so TPN started. Continue narcotics and wean as able. Continue supportive care. NG has since then removed. TPN has been discontinued and started on diet. Advanced further to low-fat diet (2) SBO (small bowel obstruction): Code(s): K56.609 - Unspecified intestinal obstruction, unspecified as to partial versus complete obstruction Status: Acute Assessment and Plan: Repeat CT scan showing multiple mildly dilated loops of small bowel without discrete transition point most likely representing a secondary reactive ileus. Repeat abd xray showing SBO. NGT insert and placed on suction. General surgery consulted and appreciate their input. Has been removed and small-bowel obstruction has resolved (3) Peritonitis: Code(s): K65.9 - Peritonitis, unspecified Status: Acute Assessment and Plan: Patient noted to have small to moderate volume of ascites on repeat CT Paracentesis performed showing 5K red cells and 32K nucleated cells with 80% neutrophils Serum WBC up to 49K but better continues to improve Gram stain showing moderate WBC but no micro organisms Consider peritonitis or related to pancreatitis. Cultures no growth BCx NGTD pt completed merem (4) LARRY (acute kidney injury): Code(s): N17.9 - Acute kidney failure, unspecified Status: Acute Assessment and Plan: resolved with fluids and TPN (5) Electrolyte abnormality: Code(s): E87.8 - Other disorders of electrolyte and fluid balance, not elsewhere classified Status: Acute Assessment and Plan: Sodium is 133 (6) Alcohol withdrawal: Qualifiers: Complication of substance-induced condition: with unspecified complication Qualified Code(s): F10.939 - Alcohol use, unspecified with withdrawal, unspecified Code(s): F10.939 - Alcohol use, unspecified with withdrawal, unspecified Status: Acute Assessment and Plan: CIWA protocol started. Scheduled Librium started. CIWA 0-3 but 15 last night and received Ativan. Monitor symptoms closely since on benzo and narcotics. Continue thiamine and folate. Continue to monitor (7) SIRS (systemic inflammatory response syndrome): Code(s): R65.10 - Systemic inflammatory response syndrome (SIRS) of non-infectious origin without acute organ dysfunction Status: Acute Assessment and Plan: Noted on admission with leukocytosis, tachycardia, lactic acidosis. WBC up to 49K. Lactic peaked at 4.3 Zosyn started on admission but changed to meroprenem CT A/P again showing worsening pancreatitis Source felt related to pancreatitis; consider sepsis from periton
--- NOTE | 2024-03-04 15:08 | WPDGIPROGNO ---
Progress Note: A&P Assessment and Plan (1) Acute alcoholic pancreatitis: Qualifiers: Acute pancreatitis complication: no infection or necrosis Qualified Code(s): K85.20 - Alcohol induced acute pancreatitis without necrosis or infection Code(s): K85.20 - Alcohol induced acute pancreatitis without necrosis or infection Status: Acute Assessment and Plan: severe alcoholic pancreatitis but continues to improve and now tolerating diet tpn was discontinued and having normal BM home probably tomorrow, will need close follow-up (2) Alcohol dependence: Code(s): F10.20 - Alcohol dependence, uncomplicated Status: Acute Assessment and Plan: supportive care, thiamine, nutrition support (3) SBO (small bowel obstruction): Code(s): K56.609 - Unspecified intestinal obstruction, unspecified as to partial versus complete obstruction Status: Acute Assessment and Plan: sbft reviewed no more signs of sbo and symptomatically better (4) Leukocytosis: Qualifiers: Leukocytosis type: unspecified Qualified Code(s): D72.829 - Elevated white blood cell count, unspecified Code(s): D72.829 - Elevated white blood cell count, unspecified Status: Acute Assessment and Plan: trending down (5) SIRS (systemic inflammatory response syndrome): Code(s): R65.10 - Systemic inflammatory response syndrome (SIRS) of non-infectious origin without acute organ dysfunction Status: Acute Assessment and Plan: on admission resolved (6) Peritonitis: Code(s): K65.9 - Peritonitis, unspecified Status: Acute Assessment and Plan: high neutrophils in ascites s/p iv abx Subjective Date/time seen: 03/04/24 15:08 Interval history: he is tolerating diet, pain is much better, no nausea and having BM Review of Systems Review of Systems: All systems reviewed & are unremarkable except as noted in HPI and below Exam Const: General: comfortable and no acute distress Orientation/consciousness: patient oriented x3 HENMT: Face/Nose/Sinus: Normal nares present Eyes: Sclera: sclerae normal Neck: Neck: supple Resp: Effort & Inspection: normal respiratory effort Cardio: Rate: regular rate GI: Inspection: non-distended GI Palp: Yes Soft to palpation, No Tenderness to palpation present (GI) and No Guarding due to palpation present (GI) Auscultation: normal bowel sounds Skin: General skin exam: normal color Neuro: Speech: normal speech Motor exam (neuro): 5/5 motor strength present throughout Extrem: General: normal to inspection Psych: Mental Status: mental status grossly normal Objective Data Vital Signs Vital Signs: Vital Signs - 24 hr 03/03/24 16:00 03/03/24 20:00 03/04/24 00:00 Temperature 97.1 F L 97.1 F L Pulse Rate 78 79 Respiratory Rate 14 14 Blood Pressure 104/57 L 113/70 Pulse Oximetry 97 97 Oxygen Delivery Room Air 03/04/24 08:00 Temperature 96.1 F L Pulse Rate 74 Respiratory Rate 18 Blood Pressure 110/67 Pulse Oximetry 98 Oxygen Delivery Intake/Output Intake/Output: Intake & Output 03/01/24 03/02/24 03/03/24 03/04/24 23:59 23:59 23:59 23:59 Intake Total 2382 2442 2028 830 Output Total 4400 1850 1200 Balance -2018 592 828 830 Meds/Results Medications: Active Medications Generic Name Dose Route Start Last Admin Trade Name Freq PRN Reason Stop Dose Admin Acetaminophen 650 mg 02/23/24 20:26 03/01/24 18:07 Acetaminophen 325 Mg Tablet PO 650 mg Q6H PRN Administration Mild Pain (1-3) or Fever Hydrocodone Bitart/Acetaminophen 1 tab 03/04/24 10:48 03/04/24 11:56 Hydrocodone/Acetaminophen (*Crx) 5-325 Mg Tablet PO 1 tab Q6H PRN Administration Pain Rated 4-10 Dextrose 12.5 gm 02/27/24 13:06 Dextrose 50% 25 Gm/50 Ml Syringe IV PUSH PRN PRN Hypoglycemia Protocol Enoxaparin Sodium 40 mg 03/03/24 09:00 03/04/24 11:56
[2024-03-04 16:00] VITALS: BP 114/68; PULSE 72; RESP 18; TEMP 35.6; O2SAT 99
[2024-03-05] VITALS: BP 113/71; PULSE 71; RESP 18; TEMP 36.9; O2SAT 98
[2024-03-05 06:05] VITALS: BP 120/66; PULSE 69; RESP 18; TEMP 36.9; O2SAT 95
[2024-03-05 06:24] LABS: Basophils Absolute Auto 0.2 K/mm3 (0.0-0.1); Basophils Percent Auto 1.5 % (0.2-1.2); Eosinophils Absolute Auto 0.2 K/mm3 (0-0.3); Hemoglobin 13.3 g/dL (14.0-18.0); Immature Granulocyte Percent A 4.9 % (0-0.5); Lymphocytes Absolute Auto 2.68 K/mm3 (0.9-3.2); Lymphocytes Percent Auto 21.9 % (18.3-44.2); Mean Corpuscular HGB Conc 32.4 g/dl (32-36); Mean Corpuscular Hemoglobin 30.9 pg (26-34); Mean Corpuscular Volume 95.3 fl (80-100); Mean Platelet Volume 10.8 fl (7.4-10.4); Monocytes Percent Auto 8.3 % (2.6-8.5); Neutrophils Absolute Auto 7.5 K/mm3 (1.3-6.7); Neutrophils Percent Auto 61.4 % (45.5-73.1); Platelet Count Result 450 k/mm3 (150-375); Red Cell Distribution Width 14.6 % (11.5-14.5); White Blood Count 12.2 K/mm3 (4.5-10.0)
[2024-03-05 06:37] LABS: Alanine Aminotransferase 26 U/L (6-50); Albumin Level 3.9 g/dL (3.5-5.1); Alkaline Phosphatase 92 U/L (38-126); Anion Gap 10 mmol/L (4-12); Aspartate Amino Transferase 30 U/L (17-59); Bilirubin,Total 0.6 mg/dL (0.2-1.3); Blood Urea Nitrogen 11 mg/dL (9-20); Calcium 9.1 mg/dL (8.4-10.2); Carbon Dioxide 28 mmol/L (22-30); Chloride 98 mmol/L (98-107); Estimated CRCL calculation 190 ml/min; Estimated Glomerular Filt Rate > 60; Glucose 130 mg/dL (65-110); Magnesium 2.3 mg/dL (1.6-2.3); Phosphorus 3.6 mg/dL (2.5-4.5); Potassium 4.4 mmol/L (3.4-5.0); Sodium 136 mmol/L (137-145)
[2024-03-05 08:00] VITALS: BP 122/67; PULSE 71; RESP 18; TEMP 35.3; O2SAT 98
[2024-03-05] MEDS: NICOTINE (*PBKC) 21 MG PATCH 1 PATCH TRANSDERM (08:07)
[2024-03-05] MEDS: FOLIC ACID 1 MG TABLET PO (08:07)
[2024-03-05] MEDS: ENOXAPARIN 40 MG/0.4 ML SYRINGE SUB-Q (08:07)
[2024-03-05] MEDS: PANTOPRAZOLE 40 MG TABLET PO (08:08)
[2024-03-05] MEDS: THIAMINE HCL 100 MG TABLET PO (08:08)
--- NOTE | 2024-03-05 10:40 | PM.DS ---
DS: Admitting Diagnosis Discharge Date 03/05/2020 Admitting Diagnosis Abdominal pain DS: Discharge Diagnosis Discharge Diagnosis (1) Acute alcoholic pancreatitis: Qualifiers: Acute pancreatitis complication: no infection or necrosis Qualified Code(s): K85.20 - Alcohol induced acute pancreatitis without necrosis or infection Code(s): K85.20 - Alcohol induced acute pancreatitis without necrosis or infection Status: Acute (2) SBO (small bowel obstruction): Code(s): K56.609 - Unspecified intestinal obstruction, unspecified as to partial versus complete obstruction Status: Acute (3) Peritonitis: Code(s): K65.9 - Peritonitis, unspecified Status: Acute (4) LARRY (acute kidney injury): Code(s): N17.9 - Acute kidney failure, unspecified Status: Acute (5) Electrolyte abnormality: Code(s): E87.8 - Other disorders of electrolyte and fluid balance, not elsewhere classified Status: Acute (6) Alcohol withdrawal: Qualifiers: Complication of substance-induced condition: with unspecified complication Qualified Code(s): F10.939 - Alcohol use, unspecified with withdrawal, unspecified Code(s): F10.939 - Alcohol use, unspecified with withdrawal, unspecified Status: Acute (7) SIRS (systemic inflammatory response syndrome): Code(s): R65.10 - Systemic inflammatory response syndrome (SIRS) of non-infectious origin without acute organ dysfunction Status: Acute (8) Lactic acidosis: Code(s): E87.20 - Acidosis, unspecified Status: Acute (9) Leukocytosis: Qualifiers: Leukocytosis type: unspecified Qualified Code(s): D72.829 - Elevated white blood cell count, unspecified Code(s): D72.829 - Elevated white blood cell count, unspecified Status: Acute (10) Polycythemia: Code(s): D75.1 - Secondary polycythemia Status: Acute (11) Ileus: Code(s): K56.7 - Ileus, unspecified Status: Acute (12) Alcohol abuse: Code(s): F10.10 - Alcohol abuse, uncomplicated Status: Chronic (13) Tobacco dependence: Code(s): F17.200 - Nicotine dependence, unspecified, uncomplicated Status: Acute DS: Summary Hospital Course Hospital Course: # Acute alcoholic pancreatitis: Patient presents with abdominal pain and found to have pancreatitis. Lipase 1100. CT A/P with contrast showing acute pancreatitis. [place] score 0 (no LDH drawn on admission) on admission. [place] 2 (BUN and fluid sequestration) at about 48hours GB was normal by CT. TG 198. [place] to be related to alcoholism. NPO. IV fluids started. Analgesics started. Repeat CT A/P 02/25/2024 without contrast showing significant progression of retroperitoneal inflammatory stranding and fluid centered around the pancreas consistent with worsening acute interstitial pancreatitis. Also with new small bilateral pleural effusions and small to moderate amount of ascites in the abdomen and pelvis likely related to acute pancreatitis. RUQ US showing 3cm liver mass, small right pleural effusion and small volume of ascites. Patient with persistent nausea and has ileus/SBO and hence so TPN started. General surgery was consulted placed an NG tube and was managed conservatively. Subsequently started having bowel movement and NG tube was removed. TPN was discontinued and was started on diet. Tolerated was advanced to low-fat diet. Pain controlled switched to oral pain medication # SBO (small bowel obstruction): Delete Repeat CT scan showing multiple mildly dilated loops of small bowel without discrete transition point most likely representing a secondary reactive ileus. Repeat abd xray showing SBO. NGT insert and placed on suction. General surgery consulted and appreciate their input. Has been removed and small-bowel obstruction has resolved # Peritonitis: Patient noted to have small to moderate volume of ascites on repeat CT Paracentesi
--- NOTE | 2024-03-05 15:29 | WPDGIPROGNO ---
Progress Note: A&P Assessment and Plan (1) Acute alcoholic pancreatitis: Qualifiers: Acute pancreatitis complication: no infection or necrosis Qualified Code(s): K85.20 - Alcohol induced acute pancreatitis without necrosis or infection Code(s): K85.20 - Alcohol induced acute pancreatitis without necrosis or infection Status: Acute Assessment and Plan: severe alcoholic pancreatitis but continues to improve and now tolerating diet he is going home follow-up office in few more weeks he needs to stop drinking alcohol, this was discussed with patient (2) Alcohol dependence: Code(s): F10.20 - Alcohol dependence, uncomplicated Status: Acute Assessment and Plan: supportive care, thiamine, nutrition support (3) SBO (small bowel obstruction): Code(s): K56.609 - Unspecified intestinal obstruction, unspecified as to partial versus complete obstruction Status: Acute Assessment and Plan: resolved (4) Leukocytosis: Qualifiers: Leukocytosis type: unspecified Qualified Code(s): D72.829 - Elevated white blood cell count, unspecified Code(s): D72.829 - Elevated white blood cell count, unspecified Status: Acute Assessment and Plan: stable, trending down (5) SIRS (systemic inflammatory response syndrome): Code(s): R65.10 - Systemic inflammatory response syndrome (SIRS) of non-infectious origin without acute organ dysfunction Status: Acute Assessment and Plan: on admission resolved (6) Peritonitis: Code(s): K65.9 - Peritonitis, unspecified Status: Acute Assessment and Plan: high neutrophils in ascites s/p iv abx Subjective Date/time seen: 03/05/24 11:21 Interval history: doing better, tolerating diet and going home Review of Systems Review of Systems: All systems reviewed & are unremarkable except as noted in HPI and below Exam Const: General: comfortable and no acute distress Orientation/consciousness: patient oriented x3 HENMT: Face/Nose/Sinus: Normal nares present Eyes: Sclera: sclerae normal Neck: Neck: supple Resp: Effort & Inspection: normal respiratory effort Cardio: Rate: regular rate GI: Inspection: non-distended GI Palp: Yes Soft to palpation, No Tenderness to palpation present (GI) and No Guarding due to palpation present (GI) Auscultation: normal bowel sounds Skin: General skin exam: normal color Neuro: Speech: normal speech Motor exam (neuro): 5/5 motor strength present throughout Extrem: General: normal to inspection Psych: Mental Status: mental status grossly normal Objective Data Vital Signs Vital Signs: Vital Signs - 24 hr 03/04/24 16:00 03/05/24 00:00 03/05/24 06:05 Temperature 96.0 F L 98.5 F 98.5 F Pulse Rate 72 71 69 Respiratory Rate 18 18 18 Blood Pressure 114/68 113/71 120/66 Pulse Oximetry 99 98 95 03/05/24 08:00 Temperature 95.6 F L Pulse Rate 71 Respiratory Rate 18 Blood Pressure 122/67 Pulse Oximetry 98 Intake/Output Intake/Output: Intake & Output 03/02/24 03/03/24 03/04/24 03/05/24 23:59 23:59 23:59 23:59 Intake Total 2442 2028 1070 240 Output Total 1850 1200 Balance 499 689 3820 240 Meds/Results Radiology Results: ITS Impressions Abdomen/Pelvis CT 02/25/24 10:42 IMPRESSION: 1. Significant progression of retroperitoneal inflammatory stranding and fluid centered around the pancreas consistent with worsening acute interstitial pancreatitis. 2. New small bilateral pleural effusions and small to moderate amount of ascites in the abdomen and pelvis likely related to acute pancreatitis. 3. Multiple mildly dilated loops of small bowel without discrete transition point most likely representing a secondary reactive ileus. Upper Quadrant Ultrasound 02/25/24 15:24 IMPRESSION: Pancreas not well visualized, likely obscured by inflammatory changes. 3 cm liver mass in segment 8, not well visualized in the
[2024-03-13 15:39] LABS: Albumin Peritoneal Fluid 1.9 g/dL; Amylase Peritoneal Fluid 1536 U/L
== END 2024-03-05 12:55 | disposition home or self-care (01) | DRG 282 ==
LOC: ANHED 17:05 → ANH2MED 19:06 → ANHIMU 02-25 15:19 → ANH3MEDSUR 03-02 12:45
PROVIDERS: Emergency Medicine; Internal Medicine; Internal Medicine Gastroenterology; Internal Medicine Nephrology; Nurse Practitioner Family; Physician Assistant; Admitting Provider Family Medicine; Emergency Provider Student in an Organized Health Care Education/Training Program; Visit Provider Internal Medicine
DX: K85.20 Alcohol induced acute pancreatitis without necrosis or infection (principal); K65.9 Peritonitis, unspecified; K56.609 Unspecified intestinal obstruction, unspecified as to partial versus complete obstruction; N17.9 Acute kidney failure, unspecified; R65.10 Systemic inflammatory response syndrome (SIRS) of non-infectious origin without acute organ dysfunction; K56.7 Ileus, unspecified; E87.20 Acidosis, unspecified; E87.5 Hyperkalemia; E87.1 Hypo-osmolality and hyponatremia; D75.1 Secondary polycythemia; F10.139 Alcohol abuse with withdrawal, unspecified; F17.290 Nicotine dependence, other tobacco product, uncomplicated
CPT/HCPCS: 36415; 49083; 74018; 74019; 74176; 74177; 74250; 76705; 80048; 80053; 80069; 81001; 82042; 82150; 82550; 82570; 82948; 83605; 83690; 83735; 83935; 84100; 84145; 84146; 84156; 84157; 84300; 84443; 84466; 84478; 84484; 84540; 85025; 85027; 85055; 85610; 85730; 85999; 86140; 87040; 87070; 87075; 87086; 87205; 88108; 88305; 89051; 93005; 94640; 96361; 96374; 96375; 96376; 99285; A9270; G0378; G0379; J0696; J1170; J1171; J1650; J2060; J2185; J2270; J2405; J2470; J2543; J3411; J3480; J7030; J7040; J7060; J7120; Q9967

== ENCOUNTER 2024-03-30 22:26 | Inpatient (IN) | payer OTHER, SELFPAY ==
--- NOTE | ~2024-03-30 | CT_ITS ---
CT of the Abdomen and Pelvis: Indication: Abdominal pain, history of pancreatitis Technique: 2.5 mm axial scans were obtained through the abdomen and pelvis following intravenous adm inistration of 100 cc of Omnipaque 350. Dose reduction technique was used on this scan by utilizing a utomated exposure control and iterative reconstruction technique. The dose-length product (DLP) was 3 21.76 mGy-cm. COMPARISON: 02/25/2024 Findings: Scans through the lung bases are unremarkable. The liver, spleen, gallbladder, adrenals and kidneys are within normal limits. There is a somewhat ir regular/lobulated mildly thick walled fluid collection extensively abutting/involving the pancreatic distal body and tail, measuring approximately 9.2 x 5.7 x 7.3 cm in extent, compatible with walled of f necrosis or pseudocyst. Collection or just abuts the greater curvature of the stomach. No evidence of aortic aneurysm. No lymphadenopathy. No bowel obstruction or bowel wall thickening. There is no evidence to suggest acute appendicitis. Images through the pelvis were performed. Urinary bladder unremarkable. No pelvic mass seen. No pelvi c ascites. Impression: 9.2 x 5.7 x 7.3 cm irregular fluid collection involving the pancreas/peripancreatic region, as detail ed above, compatible with either walled off necrosis or pseudocyst. Correlate clinically for superinf ection. Reviewed, dictated and finalized at location . Impression: 9.2 x 5.7 x 7.3 cm irregular fluid collection involving the pancreas/peripancre atic region, as detailed above, compatible with either walled off necrosis or p seudocyst. Correlate clinically for superinfection.
[2024-03-30 22:29] VITALS: BP 141/90; PULSE 92; RESP 20; TEMP 36.2; O2SAT 98
[2024-03-30 22:43] LABS: Basophils Absolute Auto 0.1 K/mm3 (0.0-0.1); Basophils Percent Auto 0.4 % (0.2-1.2); Eosinophils Absolute Auto 0.1 K/mm3 (0-0.3); Eosinophils Percent Auto 0.6 % (0-4.4); Hematocrit 43.5 % (42.0-52.0); Hemoglobin 15.4 g/dL (14.0-18.0); Immature Granulocyte Percent A 0.6 % (0-0.5); Lymphocytes Absolute Auto 2.54 K/mm3 (0.9-3.2); Lymphocytes Percent Auto 14.7 % (18.3-44.2); Mean Corpuscular HGB Conc 35.4 g/dl (32-36); Mean Corpuscular Hemoglobin 32.6 pg (26-34); Mean Platelet Volume 11.3 fl (7.4-10.4); Monocytes Absolute Auto 1.1 K/mm3 (0.1-0.6); Monocytes Percent Auto 6.1 % (2.6-8.5); Neutrophils Absolute Auto 13.4 K/mm3 (1.3-6.7); Neutrophils Percent Auto 77.6 % (45.5-73.1); Platelet Count Result 270 k/mm3 (150-375); Red Blood Count 4.73 M/mm3 (4.6-6.20); Red Cell Distribution Width 14.5 % (11.5-14.5); White Blood Count 17.3 K/mm3 (4.5-10.0)
[2024-03-30 22:53] LABS: Alanine Aminotransferase 27 U/L (6-50); Albumin Level 4.9 g/dL (3.5-5.1); Alkaline Phosphatase 89 U/L (38-126); Anion Gap 15 mmol/L (4-12); Aspartate Amino Transferase 21 U/L (17-59); Bilirubin,Total 0.9 mg/dL (0.2-1.3); Blood Urea Nitrogen 7 mg/dL (9-20); Calcium 9.2 mg/dL (8.4-10.2); Carbon Dioxide 22 mmol/L (22-30); Chloride 103 mmol/L (98-107); Estimated CRCL calculation 191 ml/min; Estimated Glomerular Filt Rate > 60; Glucose 120 mg/dL (65-110); Lipase 64 U/L (23-300); Potassium 3.7 mmol/L (3.4-5.0); Sodium 140 mmol/L (137-145)
[2024-03-31] VITALS (20 sets, daily range): BP systolic 115–157; BP diastolic 75–99; PULSE 57–85; RESP 16–20; TEMP 36.5–36.8; O2SAT 94–99; BMI 23.3
[2024-03-31 03:27] LABS: Add Urine Microscopic? YES; Appearance Urine Clear (Clear); Bacteria Urine None Seen /hpf; Bilirubin Urine Negative (Negative); Blood Urine Negative (Negative); Color Urine Yellow (Yellow); Glucose Urine UA Negative (Negative); Ketones Urine Negative (Negative); Leukocyte Esterase Ur Negative LEU/UL (Negative); Nitrate Urine Negative (Negative); Non Pathogenic Casts 0-2; Protein Urine Trace mg/dL (Negative); RBC Urine 0-2 /hpf (0-2); Specific Grav Ur 1.028 (1.001-1.035); Squamous Epithelial Cell Urine None Seen /hpf (Few); Urobilinogen Urine 0.2 mg/dL (<2.0); WBC Urine 0-5 /hpf (0-3)
[2024-03-31] MEDS: PANTOPRAZOLE SODIUM IV 40 MG VIAL IV PUSH ×2 (04:22→09:02)
[2024-03-31] MEDS: FAMOTIDINE 20 MG/2 ML VIAL IV PUSH (04:22)
[2024-03-31] MEDS: ONDANSETRON INJ 4 MG/2 ML VIAL IV PUSH ×5 (04:22→21:37)
[2024-03-31] MEDS: MORPHINE SULFATE (*CRX) 4 MG/ML INJ IV PUSH ×5 (04:22→21:37)
[2024-03-31] MEDS: SODIUM CHLORIDE 0.9% IV 1,000 ML 999 ML IV CONT ×2 (04:23→06:56)
--- NOTE | 2024-03-31 04:49 | ED.GENADULT ---
HPI - General Adult General Chief complaint: Abdominal Pain Stated complaint: abd pain - hx pancreatitis Time Seen by Provider: 03/31/24 03:51 History of Present Illness HPI narrative: Regarding year old gentleman presents emergency department chief complaint of abdominal pain. Patient reports that he has history of pancreatitis due to alcohol use patient states that he drank yesterday and reports that he has pain in her epigastric and left upper quadrant. Related Data Allergies Allergy/AdvReac Type Severity Reaction Status Date / Time No Known Allergies Allergy Unverified 07/19/17 21:28 Review of Systems Review of Systems: A 10 system review of systems was completed on the patient and is negative except for what is stated in the HPI. Nursing and ancillary documentation was reviewed. [facility] Past Medical History Medical History Alcohol abuse Pancreatitis Surgical History Surgical History History of open reduction and internal fixation (ORIF) procedure Left femur. Family History Family History Mother Cerebrovascular accident Hypertension Social History Social History Social History: Surrogate medical decision maker: Ember Jordan, friend. Code status: Full code. Smoking status: Current every day smoker Tobacco type: e-cigarettes/vaping Alcohol intake: current Drinks per week: 40 Alcohol use details: A 5th of alcohol every 2 days. Substance use: former Substance use type: marijuana Last use: 02/22/24 Do You Feel Safe in your Home?: Yes Lack of Transportation: No Lack of Food: Never True Current Housing: I Have Housing Concerned About Future Housing: No Difficulty Paying Gas/Electric Bills: No Difficulty Paying for Meds: No Currently Unemployed: YES Education: Grade School Difficulty w/ Childcare or Family Care: No Spiritual care concerns: No Exam Narrative: GENERAL: Well-appearing, well-nourished, and in no acute distress. HEAD: Normocephalic, atraumatic. EYES: PERRLA and EOMI. ENT: Nares clear, no rhinorrhea or epistaxis. Mucous membranes moist. NECK: Supple. CHEST: Clear to auscultation. No respiratory distress. HEART: Regular rate and rhythm. No murmur heard. Normal peripheral pulses. ABDOMEN: Soft, tenderness palpation in the epigastric region, nondistended, normal active bowel sounds. EXTREMITIES: Normal range of motion. No edema. SKIN: Warm, dry, no rash. NEURO: No focal deficits. Alert and oriented x3. PSYCH: Normal mood and affect. Course Vital Signs Vital signs: Vital Signs Temperature 36.2 C L 03/30/24 22: Pulse Rate 92 03/30/24 22:29 Respiratory Rate 20 03/30/24 22:29 Blood Pressure 141/90 H 03/30/24 22:29 Pulse Oximetry 98 03/30/24 22:29 Oxygen Delivery Room Air 03/30/24 22:29 Temperature 36.2 C L 03/30/24 22:29 Pulse Rate 84 03/31/24 03:17 Respiratory Rate 18 03/31/24 03:17 Blood Pressure 130/89 03/31/24 04:32 Pulse Oximetry 99 03/31/24 06:15 Oxygen Delivery Room Air 03/30/24 22:29 Medical Decision Making MDM Narrative Medical decision making narrative: Differential diagnosis includes pancreatitis intra-abdominal infection, that is this Laboratory studies were obtained which showed a white count 7.3 electrolytes are within normal limits liver enzymes are normal lipase was normal urinalysis showed no evidence UTI ETOH was negative CT scan of the abdomen pelvis showed 9.2 x 5.7 x 7.3 cm irregular fluid collection involving the pancreas/peripancreatic region, as detailed above, compatible with either walled off necrosis or pseudocyst. Correlate clinically for superinfection. Vital Signs Vital Signs: Vital Signs Temperature 36.2 C L 03/30/24 22:29 Pulse Rate 92 03/30/24 22:29 Respiratory Rate 20 03/30/24 22:29 Blood Pressure 141/90 H 03/30/24 22:29 Pulse Oximetry 98 03/30/24 22:29 Oxygen Delivery Room Air 03/30/24 22:29 Temperature 36.2 C L 03/30/24 22:29 Pulse Rate 84 03/31/24 03:17 Respiratory Rate 18 03/31/24 03:17 Blood Pressure 130/89 03/31/24 04:32 Pulse Oximetry 99 03/31/24 06:15 Oxygen Delivery Room Air 03/30/24 22:29 Lab Data 03/30/24 22:36 03/30/24 22:36 Labs: Lab Results 03/30/24 03/31/24 03/31/24 Range/Units 22:36 02:57 04:43 WBC 17.3 H (4.5-10.0) K/mm3 RBC 4.73 (4.6-6.20) M/mm3 Hgb 15.4 (14.0-18.0) g/dL Hct 43.5 (42.0-52.0) % MCV 92.0 (80-100) fl MCH 32.6 (26-34) pg MCHC 35.4 (32-36) g/dl RDW 14.5 (11.5-14.5) % Plt Count 270 (150-375) k/mm3 MPV 11.3 H (7.4-10.4) fl Immature Gran % (Auto) 0.6 H (0-0.5) % Neut % (Auto) 77.6 H (45.5-73.1) % Lymph % (Auto) 14.7 L (18.3-44.2) % [place] % (Auto) 6.1 (2.6-8.5) % Eos % (Auto) 0.6 (0-4.4) % Baso % (Auto) 0.4 (0.2-1.2) % Lymph # (Auto) 2.54 (0.9-3.2) K/mm3 [place] # (Auto) 1.1 H (0.1-0.6) K/mm3 Eos # (Auto) 0.1 (0-0.3) K/mm3 Baso # (Auto) 0.1 (0.0-0.1) K/mm3 Abs Immat Gran (auto) 0.10 H (0.00-0.031) K/mm3 Absolute Neuts (auto) 13.4 H (1.3-6.7) K/mm3 Absolute Nucleated RBC 0.000 (0.0-0.012) K/mm3 Nucleated RBC % 0.0 (0.0-0.2) % Sodium 140 (137-145) mmol/L Potassium 3.7 (3.4-5.0) mmol/L Chloride 103 (98-107) mmol/L Carbon Dioxide 22 (22-30) mmol/L Anion Gap 15 H (4-12) mmol/L BUN 7 L (9-20) mg/dL Creatinine 0.50 L (0.7-1.3) mg/dL Estim Creat Clear Calc 191 ml/min Estimated GFR > 60 (59 - ) Glucose 120 H (65-110) mg/dL Calcium 9.2 (8.4-10.2) mg/dL Total Bilirubin 0.9 (0.2-1.3) mg/dL AST 21 (17-59) U/L ALT 27 (6-50) U/L Alkaline Phosphatase 89 (38-126) U/L Total Protein 9.0 H (6.3-8.2) g/dL Albumin 4.9 (3.5-5.1) g/dL Lipase 64 (23-300) U/L Urine Color Yellow (Yellow) Urine Appearance Clear (Clear) Urine pH 5.0 (5.0-9.0) Ur Specific [place] 1.028 (1.001-1.035) Urine Protein Trace (Negative) mg/dL Urine Glucose (UA) Negative (Negative) mg/dL Urine Ketones Negative (Negative) mg/dL Ur Blood (Man) Negative (Negative) Urine Nitrate Negative (Negative) Urine Bilirubin Negative (Negative) Urine Urobilinogen 0.2 (<2.0) mg/dL Leukocyte Esterase Rfl Negative (Negative) KATHI/UL Urine RBC 0-2 (0-2) /hpf Urine WBC 0-5 (0-3) /hpf Ur Squamous Epith Cells None seen (Few) /hpf Urine Bacteria None seen /hpf Urine Casts 0-2 Ethyl Alcohol < 10 (<10) mg/dL Discharge Plan Discharge Clinical Impression: Abdominal pain, Acute on chronic pancreatitis, Pancreatic pseudocyst Patient Disposition: Still a Patient Condition: Stable Instructions: Antibiotic Form Prescriptions: No Action hydrocodone-acetaminophen 5-325 mg Tablet 1 tablet PO Q6H PRN (Reason: Pain Rated 4-10) Qty: 10 0RF thiamine HCl (vitamin B1) [Vitamin B-1] 100 mg Tablet 100 mg PO QAM Qty: 30 0RF pantoprazole 40 mg Tablet,Delayed Release (Dr/Ec) 40 mg PO QAM Qty: 30 0RF Follow-up/Referrals: PHYSICIAN,[facility] [Primary Care Provider] - Time of Disposition: 06:48
[2024-03-31 04:58] LABS: Ethanol < 10 mg/dL (<10)
--- NOTE | 2024-03-31 05:31 | PC.NURSE ---
when pt was asked how he is feeling pt will only respond with eh I feel a little better
--- NOTE | 2024-03-31 08:19 | PM.IMHP ---
H&P: HPI History of Present Illness Date/Time: 03/31/24 08:19 Chief Complaint: Abdominal pain with history of pancreatitis Narrative: 28-year-old with history of pancreatitis due to EtOH use presents the hospital with epigastric pain. Patient reports that he has history of pancreatitis due to alcohol use patient states that he drank yesterday and reports that he has pain in he epigastric and left upper quadrant. patient states that the pain is a stabbing like pain making him feel nauseous but no vomiting. in the ED blood cultures are pending, WBC 17.1, lipase is WDL, CT abdomen pelvis show 9.2 x 5.7 x 7.3 cm irregular fluid collection involving the pancreas/peripancreatic region, as detailed above, compatible with either walled off necrosis or pseudocyst. Correlate clinically for superinfection. patient was given 2 L NS and started on NS at 150 with Protonix. spoke with GI attending net application architect due to the size and mass the patient is be transferred to [place] or [facility] For CT-guided drainage. patient has been accepted by [facility]ist and GI for pancreatic pseudocyst, waiting on bed availability Review of Systems Review of Systems: 12 systems were reviewed and are negative except for as per HPI. [facility] Past Medical History Medical History Alcohol abuse Pancreatitis Surgical History Surgical History History of open reduction and internal fixation (ORIF) procedure Left femur. Family History Family History Mother Cerebrovascular accident Hypertension Social History Social History Social History: Surrogate medical decision maker: Ember Jordan, friend. Code status: Full code. Smoking status: Current every day smoker Tobacco type: e-cigarettes/vaping Alcohol intake: current Drinks per week: 3 Alcohol use details: A 5th of alcohol every 2 days. Substance use: never Substance use type: marijuana Last use: 02/22/24 Do You Feel Safe in your Home?: Yes Lack of Transportation: No Lack of Food: Never True Current Housing: I Have Housing Concerned About Future Housing: No Difficulty Paying Gas/Electric Bills: No Difficulty Paying for Meds: No Currently Unemployed: YES Education: Grade School Difficulty w/ Childcare or Family Care: No Spiritual care concerns: No Meds Home Medications and Allergies Home Medications Medication Instructions Recorded Confirmed Type hydrocodone 5 mg-acetaminophen 325 1 tablet PO Q6H PRN Pain Rated 03/05/24 03/31/24 Rx mg tablet 4-10 #10 tabs pantoprazole 40 mg tablet,delayed 40 mg PO QAM #30 tabs 03/05/24 03/31/24 Rx release thiamine HCl (vitamin B1) 100 mg 100 mg PO QAM #30 tabs 03/05/24 03/31/24 Rx tablet (Vitamin B-1) Allergies Allergy/AdvReac Type Severity Reaction Status Date / Time No Known Allergies Allergy Verified 03/31/24 08:58 Vital Signs Vital Signs - 24 hr 03/30/24 22:29 03/31/24 03:11 03/31/24 03:17 Temperature 97.2 F L Pulse Rate 92 57 L 84 Respiratory Rate 20 18 18 Blood Pressure 141/90 H 145/94 H 138/91 H Pulse Oximetry 98 98 98 Oxygen Delivery Room Air 03/31/24 03:45 03/31/24 03:47 03/31/24 04:20 Temperature Pulse Rate Respiratory Rate Blood Pressure 134/88 Pulse Oximetry 98 98 98 Oxygen Delivery 03/31/24 04:21 03/31/24 04:30 03/31/24 04:32 Temperature Pulse Rate Respiratory Rate Blood Pressure 135/79 130/89 Pulse Oximetry 98 97 99 Oxygen Delivery 03/31/24 04:45 03/31/24 05:00 03/31/24 05:21 Temperature Pulse Rate Respiratory Rate Blood Pressure Pulse Oximetry 98 99 98 Oxygen Delivery 03/31/24 05:30 03/31/24 05:45 03/31/24 06:00 Temperature Pulse Rate Respiratory Rate Blood Pressure Pulse Oximetry 98 96 97 Oxygen Delivery 03/31/24 06:15 03/31/24 08:13 Temperature Pulse Rate 74 Respiratory Rate 16 Blood Pressure 130/99 H Pulse Oximetry 99 98 Oxygen Delivery Exam Narrative: General: well appearing, appears stated age. HEENT: normocephalic, atraumatic. Mucous membranes moist. EOMI, PERRLA, bilateral sclera anicteric, no conjunctival injection. Neck supple without JVD, lymphadenopathy, or bruit. Respiratory: clear to auscultation bilaterally. No rales/rhonic/wheezes. Cardiovascular: Regular rate and rhythm, normal S1-S2 upon auscultation. No murmurs, rubs, or clicks. PMI is nondisplaced, capillary refill less than 3 second. Abdomen: Soft, round, no pulsatile masses, nondistended and nontender. No rebound, no guarding. No CVA tenderness, no hepatosplenomegaly. Bowel sounds present to all four quadrants. No high pitch or tinkling sounds, resonant to percussion. Extremities: No cyanosis, clubbing, or edema present. Pulses are palpable 2/2. Active ROM to all four extremities. Neuro: Alert and orientated x 4. PERRLA. Cranial nerves 2-12 intact without focal deficit. Skin: Warm, dry, and intact, without rash, erythema, or lesion. Psych: pleasant, cooperative, normal speech, normal affect, no hallucinations, no dysarthria H&P: Results Labs Labs: Short CBC 03/30/24 Range/Units 22:36 WBC 17.3 H (4.5-10.0) K/mm3 Hgb 15.4 (14.0-18.0) g/dL Hct 43.5 (42.0-52.0) % Plt Count 270 (150-375) k/mm3 BMP 03/30/24 22:36 Sodium 140 Potassium 3.7 Chloride 103 Carbon Dioxide 22 BUN 7 L Creatinine 0.50 L Glucose 120 H Calcium 9.2 Liver Function 03/30/24 Range/Units 22:36 Total Bilirubin 0.9 (0.2-1.3) mg/dL AST 21 (17-59) U/L ALT 27 (6-50) U/L Alkaline Phosphatase 89 (38-126) U/L Albumin 4.9 (3.5-5.1) g/dL Urine 03/31/24 Range/Units 02:57 Urine Color Yellow (Yellow) Urine Appearance Clear (Clear) Urine pH 5.0 (5.0-9.0) Ur Specific Covel 1.028 (1.001-1.035) Urine Protein Trace (Negative) mg/dL Urine Glucose (UA) Negative (Negative) mg/dL Assessment and Plan Assessment and plan (1) Pancreatic pseudocyst: Code(s): K86.3 - Pseudocyst of pancreas Status: Acute Assessment and Plan: with leukocytosis 13.9 lipase, liver enzymes normal, bilirubin 1.8 patient will be transferred to [place] for CT-guided aspiration, excepted by GI and hospitalist there waiting on bed availability diet as tolerated IV fluids for hydration pain management bowel protocol IV Zosyn (2) Alcohol abuse: Code(s): F10.10 - Alcohol abuse, uncomplicated Status: Chronic Assessment and Plan: WA protocol counseling provided Quality VTE Prophylaxis VTE prophylaxis: mechanical ordered and pharmacologic ordered Hospitalist MIPS Advance Care Plan I have confirmed that the patient's Advanced Care Plan is present, code status is documented, or surrogate decision maker is listed in patient medical record.: Yes Medication Reconciliation I have utilized all available resources to obtain, update and review the patients current medications (includes all prescriptions, OTC, herbals, cannabis, and nutritional supplements).: Yes
--- NOTE | 2024-03-31 08:29 | ADMGEN ---
This patient, Alonso Bender, was admitted to 3 Med Surg Room 319-01. Patient/family oriented to hospital policies and general routines including ID bracelet, bed and alarms, visiting hours, pain management, procedures, bathroom and other care routines, personal items, smoking policy, room service/diet, and visiting hours. Information on how to activate the Rapid Response Team has been discussed. Patient/Family are encouraged to report perceived risks to care and to ask questions if they do not understand what they are told or what they should do. Report from zehra in er.
[2024-03-31] MEDS: SODIUM CHLORIDE 0.9% IV 1,000 ML 150 ML IV CONT ×2 (08:59→17:39)
[2024-03-31] MEDS: DOCUSATE SODIUM 100 MG CAPSULE PO ×2 (09:01→17:34)
[2024-03-31 09:08] LABS: Hemoglobin 13.6 g/dL (14.0-18.0); Mean Corpuscular Volume 94.1 fl (80-100); Mean Platelet Volume 11.3 fl (7.4-10.4); Platelet Count Result 210 k/mm3 (150-375); Red Blood Count 4.25 M/mm3 (4.6-6.20); Red Cell Distribution Width 14.4 % (11.5-14.5); White Blood Count 13.9 K/mm3 (4.5-10.0)
[2024-03-31 09:22] LABS: Lipase 61 U/L (23-300)
[2024-03-31 09:23] LABS: Anion Gap 9 mmol/L (4-12); Blood Urea Nitrogen 5 mg/dL (9-20); Calcium 8.5 mg/dL (8.4-10.2); Carbon Dioxide 25 mmol/L (22-30); Chloride 104 mmol/L (98-107); Estimated CRCL calculation 191 ml/min; Estimated Glomerular Filt Rate > 60; Glucose 107 mg/dL (65-110); Potassium 3.6 mmol/L (3.4-5.0); Sodium 138 mmol/L (137-145)
[2024-03-31 12:44] LABS: Alanine Aminotransferase 21 U/L (6-50); Albumin Level 3.8 g/dL (3.5-5.1); Alkaline Phosphatase 68 U/L (38-126); Anion Gap 6 mmol/L (4-12); Aspartate Amino Transferase 18 U/L (17-59); Bilirubin,Total 1.8 mg/dL (0.2-1.3); Blood Urea Nitrogen 4 mg/dL (9-20); Calcium 8.3 mg/dL (8.4-10.2); Carbon Dioxide 28 mmol/L (22-30); Chloride 104 mmol/L (98-107); Estimated CRCL calculation 191 ml/min; Estimated Glomerular Filt Rate > 60; Glucose 95 mg/dL (65-110); Potassium 3.5 mmol/L (3.4-5.0); Sodium 138 mmol/L (137-145)
[2024-03-31 12:46] LABS: INR 1.1; Prothrombin Time 14.3 Seconds (11.1-14.7)
[2024-03-31 12:47] LABS: Partial Thromboplastin Time 25.6 Seconds (22.3-36.8)
[2024-03-31] MEDS: PIPERACILLN/TAZ 3.375GM/NS50ML 3.375 GM/50 ML BAG IVPB ×2 (13:11→17:39)
[2024-03-31] MEDS: chlordiazePOXIDE (*CRX) 25 MG CAPSULE PO (17:34)
[2024-03-31 17:44] LABS: Glucose Point of Care 196 mg/dl (65-105)
--- NOTE | 2024-04-02 07:37 | PM.TDS ---
Transfer Discharge Sum: Prov Provider Date of admission: 03/31/24 11:10 Primary care physician: CHIEF METER READER PHYSICIAN Admitting clinician: Vonda Catherine DO DS: Admitting Diagnosis Discharge Date 03/31/24 Admitting Diagnosis necrosis /pseudocyst pancreas Transfer Discharge Sum: Med Medications Active and Home Medications: Home Medications hydrocodone 5 mg-acetaminophen 325 mg tablet 1 tablet PO Q6H PRN Pain Rated 4-10 #10 tabs 03/05/24 [Rx Confirmed 03/31/24] pantoprazole 40 mg tablet,delayed release 40 mg PO QAM #30 tabs 03/05/24 [Rx Confirmed 03/31/24] thiamine HCl (vitamin B1) 100 mg tablet (Vitamin B-1) 100 mg PO QAM #30 tabs 03/05/24 [Rx Confirmed 03/31/24] Transfer Discharge Sum: Hosp Hospital Course Hospital course: Alonso Bender is a 28 year old male of pancreatitis due to EtOH use presents the hospital with epigastric pain. Patient reports that he has history of pancreatitis due to alcohol use patient states that he drank yesterday and reports that he has pain in he epigastric and left upper quadrant. patient states that the pain is a stabbing like pain making him feel nauseous but no vomiting. in the ED blood cultures are pending, WBC 17.1, lipase is WDL, CT abdomen pelvis show 9.2 x 5.7 x 7.3 cm irregular fluid collection involving the pancreas/peripancreatic region, as detailed above, compatible with either walled off necrosis or pseudocyst. Correlate clinically for superinfection. of note patient was recently discharged on March 05, 2024 for acute pancreatitis oriented prolong stay including being intubated in ICU. patient was given 2 L NS and started on NS at 150 with Protonix. spoke with GI attending environmental studies program director due to the size and mass the patient is be transferred to [place] or [facility] For CT-guided drainage. patient has been accepted by [facility] and GI for pancreatic pseudocyst, waiting on bed availability Time Spent with Patient Time attestation: Total time spent providing and/or coordinating transfer services: Total time spent: Greater than 30 minutes Exam Narrative: General: well appearing, appears stated age. HEENT: normocephalic, atraumatic. Mucous membranes moist. EOMI, PERRLA, bilateral sclera anicteric, no conjunctival injection. Neck supple without JVD, lymphadenopathy, or bruit. Respiratory: clear to ascultation bilaterally. No rales/rhonic/wheezes. Cardiovascular: Regular rate and rhythm, normal S1-S2 upon ascultation. No murmurs, rubs, or clicks. PMI is nondisplaced, capillary refill less than 3 second. Abdomen: Soft, round, no pulsatile masses, nondistended and nontender. No rebound, no guarding. No CVA tenderness, no hepatosplenomegaly. Bowel sounds present to all four quadrants. No high pitch or tinkling sounds, resonant to percussion. Extremities: No cyanosis, clubbing, or edema present. Pulses are palpable 2/2. Active ROM to all four extremities. Neuro: Alert and orientated x 4. PERRLA. Cranial nerves 2-12 intact without focal deficit. Skin: Warm, dry, and intact, without rash, erythema, or lesion. Psych: pleasant, cooperative, normal speech, normal affect, no hallucinations, no dysarthia DS: Data Data Completed and Pending Labs on day of discharge: Preliminary micro results at discharge 03/31/24 07:11 Blood Culture - Preliminary Blood 03/31/24 06:58 Blood Culture - Preliminary Blood Imaging Radiologist's impression: .2 x 5.7 x 7.3 cm irregular fluid collection involving the pancreas/peripancreatic region, as detailed above, compatible with either walled off necrosis or pseudocyst. Correlate clinically for superinfection.
== END 2024-03-31 21:50 | disposition short-term general hospital (02) | DRG 282 ==
LOC: ANHED 03-31 06:48 → ANH3MEDSUR 03-31 08:06
PROVIDERS: Admitting Provider Internal Medicine; Emergency Provider Emergency Medicine; Visit Provider Nurse Practitioner Gerontology
DX: K86.3 Pseudocyst of pancreas (principal); K85.91 Acute pancreatitis with uninfected necrosis, unspecified; F10.10 Alcohol abuse, uncomplicated; F17.290 Nicotine dependence, other tobacco product, uncomplicated
CPT/HCPCS: 36415; 74177; 80048; 80053; 81001; 82077; 82948; 83690; 85025; 85027; 85610; 85730; 87040; 96361; 96374; 96375; 96376; 99285; A9270; G0378; G0379; J2270; J2405; J2470; J2543; J7030; Q9967

== ENCOUNTER 2024-09-18 07:59 | Inpatient (IN) | payer OTHER, SELFPAY ==
--- NOTE | ~2024-09-18 | CT_ITS ---
EXAMINATION: CT abdomen pelvis w con DATE: 09/18/2024 09:11 INDICATION: Epigastric pain. TECHNIQUE: Computed tomography (CT) of the abdomen and pelvis was performed with 100 cc Omnipaque 350 intravenous contrast. The dose-length product was 301.65 mGy-cm. Automated exposure control and iter ative reconstruction technique were employed. COMPARISON: CT dated 03/31/2024. FINDINGS: Lung bases unremarkable. Heart size normal. No significant pleural or pericardial effusion. Fatty infiltration of the liver. The spleen, adrenal glands and kidneys are unremarkable. There is ac [place] pancreatitis with moderate surrounding phlegmonous change and fluid. Gallbladder is present. Nono bstructive bowel gas pattern. There is an intramedullary hermann in the left femur, partially visualized. IMPRESSION: 1. Acute uncomplicated pancreatitis. Reviewed, dictated and finalized at location A.
[2024-09-18 07:59] VITALS: BP 152/97; PULSE 86; RESP 16; TEMP 36.7; O2SAT 99
--- OUTSIDE RECORDS SUMMARY | 2024-09-18 08:01 | XMS_ITS ---
Author Organization [facility] Address [address] [place] [address] Care Team Providers Care Shearing Shed Hand Name Role Phone Erick Angel Primary Care Provider [facility], [facility] Unavailable U navailable Patricia Hartmann Unavailable [phone] REASON FOR VISIT Last seen 08/16, transfer from [facility] Social History Sex Assigned At : Social History Observation Description Sex Assigned At Male Encounters Encounter Location Date Provider Diagnosis [address] [place] [address] 02/15/2024 Patricia Hartmann Plan Of Treatment No Information Progress Notes * Pancho ROBBINS JDOB: [birth year] (28 yo M)Acc No.[id number]:02/15/2024 UNLOCKED PROGRESS NOTE Patient: Roxana CORTES Pancho Patterson Provider: Roxana Hartmann, DNP, DELINQUENT ACCOUNT CLERK, PMHNP- :1995 A ge:28 Y S ex:Male Date:02/15/2024 Address:[address] [place] [id number] Pcp:Erick Angel 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 Last seen 08/16, transfer from [facility]. * Medical History: Objective: * Vitals: Assessment: Plan: * Treatment: * * Electronic signature of Iris Oliveros [id number] on 09/18/2024 at 08:01 AM CDT Sign off status: Pending * Provider: Roxana Hartmann DNP, DELINQUENT ACCOUNT CLERK, PMHNP-BC Date: 0 02/15/2024 Generated for Printing/Faxing/eTransmitting on: 0 09/18/2024 08:01 AM CDT
--- OUTSIDE RECORDS SUMMARY | 2024-09-18 08:01 | XMS_ITS | Patient Health Record ---
Author Organization [facility] Address [address] [place] [address] Care Team Providers Care Museum Informatics Specialist Name Role Phone Jeanne Anawoody Primary Care Provider [phone] [employer], [facility] Unavailable U navailable Sydney Child Unavailable [phone] Patricia Hartmann Unavailable [phone] Allergies No Known Allergies Reason For Referral No Information Medications Medication SIG (Take, Route, Frequency, Duration) Notes Start Date End Date Status Folic Acid 1 MG Oral for 5 Days Active Daily-Yaniv - Oral for 5 Days A ctive Effexor XR 75 MG 1 capsule with food Orally Once a day for 30 days 01/22/2023 Active SEROquel XR 300 MG 1 tablet in the evening Orally Once a day Active Mirtazapine 15 MG 1 tablet at bedtime Orally Once a day for 30 days Active Propranolol HCl 20 MG 1 tablet Orally three times a day for 30 days Sending a 4 day bridge refill to cover until f/u. Active Wellbutrin XL 150 MG 1 tablet in the morning Orally Once a day for 30 days Sending a 4 day bridge refill to cover until f/u. Active Naltrexone HCl 50 MG 1 tablet Orally Onc e a day for 30 days Sending a 4 day bridge refill to cover until f/u. Active SEROquel XR 300 MG 1 tablet in the evening Orally Once a day for 30 days Sending a 4 day bridge refill to cover until f/u. Active Social History Tobacco Use: Social History Observation Description Date Details (start date - stop date) Unknown Sex Assigned At : Social History Observation Description Sex Assigned At Male Dont use, Tobacco Use/Smoking Question Answer Notes Are you a Uses tobacco in other forms Additional Findings: Tobacco User e-Cigarette Section Notes: PRESCRIPTION # FILLED WRITTEN DRUG LABEL QTY DAYS STRENGTH MME [facility] REFILL NO. REFILLS STATE 10/06/2022 10/06/2022 chlordiazePOXIDE HCL 36.0 9 25 MG NA Cheng Jo [place] [id number] [facility] [place] [place] NA 0 [place] 1 [phone] 06/15/2022 06/15/2022 ACETAMINOPHEN 325 MG / HYDROcodone BITARTRATE 5 MG ORAL TABLET 10.0 2 5.0 M PRESCRIPTION # FILLED WRITTEN DRUG LABEL QTY DAYS STRENGTH MME [facility] REFILL NO. REFILLS STATE 10/06/2022 10/06/2022 chlordiazePOXIDE HCL 36.0 9 25 MG NA Cheng Jo Md [id number] [facility] NA 0 [place] 1 [phone] 06/15/2022 06/15/2022 HYDROcodone BITARTRATE-ACETAMINOPHEN 10.0 2 325 MG-5 MG 25 Shresth PRESCRIPTION # FILLED WRITTEN DRUG LABEL QTY DAYS STRENGTH MME [facility] REFILL NO. REFILLS STATE 10/06/2022 10/06/2022 chlordiazePOXIDE HCL 36.0 9 25 MG NA Cheng Jo Md [id number] [facility] NA 0 [place] 1 [phone] 06/15/2022 06/15/2022 HYDROcodone BITARTRATE-ACETAMINOPHEN 10.0 2 325 MG-5 MG 25 Shresth Reviewed PDMP Reviewed PDMP Problems Problem Type SNOMED Code ICD Code Onset Dates Problem Status W/U Status Risk Notes Problem Depression (814674634) Depression (F32.9) Active confirmed Problem Anxiety (80685717) Anxiety (F41.9) Active confirmed Encounters Encounter Location Date Provider Diagnosis [address] [place] [address] 02/15/2024 Erick Angel Plan Of Treatment No Information Insurance Providers Payer Name Payer Address Payer Phone Subscriber Number Group Number Insured Name Patient Relationship to Insured Coverage Start Date Coverage End Date [employer] [address] [place] [phone] [id number] Pancho Bender Self - patient is the insured 3 [employer] [address] [place] [address] [id number] Pancho Bender Self - patient is the insured 3 Medical (General) History Medical History History ICD Code Substance use disorder Surgical History Surgery Date(Month/Year) Left femur/hermann Hospitalization History Reason Date(Month/Year) pancreatitis- [facility] 2022
--- OUTSIDE RECORDS SUMMARY | 2024-09-18 08:01 | XMS_ITS | CONTINUITY OF CARE DOCUMENT ---
Author Name nealfemisapphire Address Unknown Organization [facility] Address [address] [place] [address] Phone [phone] Care Team Providers Care Leadlighter Name Role Phone Isiah SHEPHERD, Renee Unavailable [phone] ZAFAR SHEPHERD, ARABELLA Balderas Unavailable [phone] ZAFAR SHEPHERD, ARABELLA Balderas Unavailable [phone] INSURANCE PROVIDERS Payer name Policy type / Coverage type [place] [employer] party ID [employer] [employer] Medicaid [id number]
--- OUTSIDE RECORDS SUMMARY | 2024-09-18 08:01 | XMS_ITS ---
Author Organization [facility] Address [address] [place] [address] Care Team Providers Care Development Director Name Role Phone Erick Angel Primary Care Provider [phone] [facility], [facility] Unavailable U navailable REASON FOR VISIT needs 40 minute transfer appt Social History Sex Assigned At : Social History Observation Description Sex Assigned At Male Encounters Encounter Location Date Provider Diagnosis [address] [place] [address] 02/15/2024 Erick Angel Plan Of Treatment No Information Progress Notes * Pancho ROBBINSDOB: [birth year] (28 yo M)Acc No.[id number]:02/15/2024 Patient: Roxana Pancho CORTES :1995 A ge:28 Y S ex:Male Address: [place], [address] * true * Date: Generated for Printi ng/Faxing/eTransmitting on: 0 09/18/2024 08:00 AM CDT
--- OUTSIDE RECORDS SUMMARY | 2024-09-18 08:01 | XMS_ITS | Clinical Summary ---
Author Organization [facility] Address [address] [place] [address] Care Team Providers Care Ad Trafficker Name Role Phone Christine George STEFAN Primary Care Provider [phone] Allergies No known active allergies Medications Cariprazine HCl (VRAYLAR) 1.5 MG CapIndications:B ipolar 1 disorder ([facility]) Take 1.5 mg by mouth daily. 30 capsule 11 05/18/2019 Active Active Problems Problem Noted Date Diagnosed Date Family history of diabetes mellitus 10/25/2019 Essential hypertension 10/25/2019 History of narcotic addiction ([facility]) 05/04/2019 Anxiety 05/02/2019 Bipolar 1 disorder ([facility]) 05/02/2019 Depression 05/02/2019 Paranoia ([facility]) 05/02/2019 Hearing voices 05/02/2019 Antifreeze poisoning, intent ional self-harm, subsequent encounter 05/02/2019 Drug addiction in remission ([facility]) Hx of extrinsic asthma 05/02/2019 Adult BMI 27.0-27.9 kg/sq m 05/02/2019 Resolved Problems Problem Noted Date Diagnosed Date Resolved Date Encounter for vitamin deficiency screening 05/04/2019 02/10/2020 Encounter for medical examin ation to establish care 05/04/2019 02/10/2020 Family History Medical History Relation Comments Alcohol Abuse Father Drug Abuse Father Diabetes Maternal Grandmother Depression Mother Diabetes Mother bipolar Mother Anxiety Neg Hx Relation Status Comments Father Maternal Grandmother Mother Social History Tobacco Use Types Packs/Day Years Used Date Smoking Tobacco: Never Smokeless Tobacco: Never Alcohol Use Standard Drinks/Week Comments Yes 0 (1 standard drink = 0.6 oz pur e alcohol) PHQ-2 Answer Date Recorded PHQ-2 Score 4 05/02/2019 Sex and Gender Information Value Date Recorded Sex Assigned at Not on file Legal Sex 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 Gender Identity Not on file Sexual Orientation Not on file Last Filed Vital Signs Vital Sign Reading Time Taken Comments Blood Pressure 134/94 10/25/2019 2:27 PM CDT Pulse 84 10/25/2019 2:27 PM CDT Temperature - - Respiratory Rate 16 10/25/2019 2:27 PM CDT Oxygen Saturation 99% 10/25/2019 2:27 PM CDT Inhaled Oxygen Concentration - - Weight 83.5 kg (184 lb) 10/25/2019 2:27 PM CDT Height 177.8 cm (5' 10 ) 10/25/2019 2:27 PM CDT Body Mass Index 26.4 10/25/2019 2:27 PM CDT Plan of Treatment Health Maintenance Due Date Last Done Comments Annual Physical 10/28/1999 Hepatitis C 2014 DTaP, Tdap and Td Vaccines ( 1 - Tdap) 10/28/2015 Hepatitis B Vaccines (1 of 3 - 19+ 3-dose series) 10/28/2015 COVID-19 Vaccine (2023-2 5 season) 2024 PHQ-2 (Physician [place]) 06/01/2024 HPV Vaccines Aged Out No longer eligi ble based on patient's age to complete this topic Meningococcal B Vaccine Aged Out No l onger eligible based on patient's age to complete this topic Meningococcal Vaccine Aged Out No baylee luz marina eligible based on patient's age to complete this topic Pneumococcal Vaccine: Pediat rics (0 to 5 Years) and At-Risk Patients (6 to 49 Years) Aged Out No longer eligible b ased on patient's age to complete this topic RSV Immunizations Under 20 Months Aged Out No longer eligible based on patient's age to complete this topic Insurance [employer] Care Teams Ad Trafficker Relationship Specialty Start Date End Date Christine George FNP [address] [place] [id number] PCP - General Nurse Practitioner Family 05/02/19
--- OUTSIDE RECORDS SUMMARY | 2024-09-18 08:01 | XMS_ITS ---
Author Organization [facility] Address [address] [place] [address] Care Team Providers Care Graduate Civil Engineer Name Role Phone Erick Angel Primary Care Provider [facility], [facility] Unavailable U navailable Sydney Child Unavailable [phone] REASON FOR VISIT r/s from 09/27--follow up [...] Male Encounters Encounter Location Date Provider Diagnosis [facility] [address] [place] [address] 10/01/2023 Sydney Child Plan Of Treatment No Information Progress Notes * Pancho ROBBINS JDOB: [birth year] (28 yo M)Acc No.[id number]:10/01/2023 UNLOCKED PROGRESS NOTE Patient: Pancho MANCILLA Provider: Marga Child, MSN, PLUMBING DESIGNER-BC, PMHNP-BC :1995 A ge:27 Y S ex:Male Date:10/01/2023 Address:[address] [place], [place] [id number] Pcp:Erick Angel Subjective: * Chief Complaints: * [...] * Electronic signature of Sydney Child , [id number] on 09/18/2024 at 08:01 AM CDT Sign off status: Pending * Provider: Marga Child, MSN, PLUMBING DESIGNER-BC, PMHNP-BC Date: 0 10/01/2023 Generated for Carlos mcallister/Telly/Aprilitting on: 0 09/18/2024 08:01 AM CDT
--- OUTSIDE RECORDS SUMMARY | 2024-09-18 08:09 | XMS_ITS | CONTINUITY OF CARE DOCUMENT ---
Author Name nealfemisapphire Address Unknown Organization [facility] Address [address] [place] [address] Phone [phone] Care Team Providers Care Seam Feller Name Role Phone Isiah SHEPHERD, Renee Unavailable ZAFAR SHEPHERD, ARABELLA Balderas Unavailable ZAFAR SHEPHERD, ARABELLA Balderas Unavailable INSURANCE PROVIDERS Payer name Policy type / Coverage type [place] [employer] party ID [employer] Medicaid [id number]
[2024-09-18 08:14] LABS: Basophils Absolute Auto 0.1 K/mm3 (0.0-0.1); Basophils Percent Auto 0.5 % (0.2-1.2); Eosinophils Absolute Auto 0.1 K/mm3 (0-0.3); Eosinophils Percent Auto 0.5 % (0-4.4); Hematocrit 49.2 % (42.0-52.0); Hemoglobin 16.5 g/dL (14.0-18.0); Immature Granulocyte Percent A 1.7 % (0-0.5); Lymphocytes Absolute Auto 1.65 K/mm3 (0.9-3.2); Lymphocytes Percent Auto 14.4 % (18.3-44.2); Mean Corpuscular HGB Conc 33.5 g/dl (32-36); Mean Corpuscular Hemoglobin 31.1 pg (26-34); Mean Corpuscular Volume 92.8 fl (80-100); Mean Platelet Volume 11.1 fl (7.4-10.4); Monocytes Absolute Auto 0.5 K/mm3 (0.1-0.6); Monocytes Percent Auto 4.6 % (2.6-8.5); Neutrophils Absolute Auto 8.9 K/mm3 (1.3-6.7); Neutrophils Percent Auto 78.3 % (45.5-73.1); Platelet Count Result 285 k/mm3 (150-375); White Blood Count 11.4 K/mm3 (4.5-10.0)
[2024-09-18 08:23] LABS: Add Urine Microscopic? YES; Appearance Urine Clear (Clear); Bacteria Urine None Seen /hpf; Bilirubin Urine Negative (Negative); Blood Urine Negative (Negative); Color Urine Yellow (Yellow); Glucose Urine UA Negative (Negative); Ketones Urine Negative (Negative); Leukocyte Esterase Ur Negative LEU/UL (Negative); Nitrate Urine Negative (Negative); Non Pathogenic Casts 0-2; Protein Urine Trace mg/dL (Negative); RBC Urine 0-2 /hpf (0-2); Specific Grav Ur 1.022 (1.001-1.035); Squamous Epithelial Cell Urine None Seen /hpf (Few); Urobilinogen Urine 0.2 mg/dL (<2.0); WBC Urine 0-5 /hpf (0-3)
[2024-09-18 08:28] LABS: Alanine Aminotransferase 32 U/L (6-50); Albumin Level 4.9 g/dL (3.5-5.1); Alkaline Phosphatase 99 U/L (38-126); Anion Gap 14 mmol/L (4-12); Aspartate Amino Transferase 22 U/L (17-59); Bilirubin,Total 0.7 mg/dL (0.2-1.3); Blood Urea Nitrogen 8 mg/dL (9-20); Calcium 9.2 mg/dL (8.4-10.2); Carbon Dioxide 23 mmol/L (22-30); Chloride 103 mmol/L (98-107); Estimated CRCL calculation 151 ml/min; Estimated Glomerular Filt Rate > 60; Glucose 141 mg/dL (65-110); Potassium 4.2 mmol/L (3.4-5.0); Sodium 140 mmol/L (137-145)
[2024-09-18] MEDS: ONDANSETRON INJ 4 MG/2 ML VIAL IV PUSH ×3 (08:32→20:35)
[2024-09-18] MEDS: MORPHINE SULFATE (*CRX) 4 MG/ML INJ IV PUSH (08:33)
[2024-09-18 08:41] LABS: Lipase 2108 U/L (23-300)
[2024-09-18] MEDS: diphenhydrAMINE HCl INJ 50 MG/ML VIAL 25 MG IV PUSH (10:19)
[2024-09-18] MEDS: METOCLOPRAMIDE HCL INJ 10 MG/2 ML VIAL IV PUSH (10:20)
--- NOTE | 2024-09-18 10:41 | ED_ITS ---
HPI - Abdominal Pain General Chief Complaint: Abdominal Pain Stated Complaint: abd pain Time Seen by Provider: 09/18/24 08:07 History of Present Illness HPI narrative: Patient presents here with epigastric pain, feels like when he had pancreatitis. Last flare was a year ago, unsure what brought it on, he denies heavy alcohol use, though he did have some drinks yesterday but he had already been having some epigastric pain for last 2 days with some nausea. Still has his gallbladder Related Data Allergies Allergy/AdvReac Type Severity Reaction Status Date / Time No Known Allergies Allergy Verified 09/18/24 08:03 Review of Systems 2 Review of Systems: All systems reviewed & are unremarkable except as noted in HPI and below PMFSH Past Medical History Medical History Alcohol abuse Pancreatitis Surgical History Surgical History History of open reduction and internal fixation (ORIF) procedure Left femur. Family History Family History Mother Cerebrovascular accident Hypertension Social History Social History Social History: Surrogate medical decision maker: Ember Jordan, friend. Code status: Full code. Smoking status: Current every day smoker Tobacco type: e-cigarettes/vaping Alcohol intake: current Drinks per week: 3 Alcohol use details: A 5th of alcohol every 2 days. Substance use: never Substance use type: marijuana Last use: 02/22/24 Do You Feel Safe in your Home?: Yes Lack of Transportation: No Lack of Food: Never True Current Housing: I Have Housing Concerned About Future Housing: No Difficulty Paying Gas/Electric Bills: No Difficulty Paying for Meds: No Currently Unemployed: YES Education: Grade School Difficulty w/ Childcare or Family Care: No Spiritual care concerns: No Exam 2 Narrative: EXAMINATION OF ORGAN SYSTEMS/BODY AREAS: Constitutional: Vital signs per nursing GENERAL: Appears uncomfortable HEAD: Normal with no signs of head trauma. EYES: EOMI, conjunctiva normal ENT: Hearing grossly intact LUNGS: Nonlabored breathing. HEART: [Regular rate and rhythm] ABD: [Soft], tender to palpation epigastric abdomen EXT: Normal range of motion SKIN: [No rashes or lesions.] NEURO: [Alert and oriented x 3. No gross focal sensory or strength deficits.] PSYCH: Normal affect Course Vital Signs Vital signs: Vital Signs Temperature 98.1 F 09/18/24 07:59 Pulse Rate 86 09/18/24 07:59 Respiratory Rate 16 09/18/24 07:59 Blood Pressure 152/97 H 09/18/24 07:59 Pulse Oximetry 99 09/18/24 07:59 Temperature 98.1 F 09/18/24 07:59 Pulse Rate 86 09/18/24 07:59 Respiratory Rate 16 09/18/24 07:59 Blood Pressure 152/97 H 09/18/24 07:59 Pulse Oximetry 99 09/18/24 07:59 MDM - Abdominal Pain MDM Narrative Medical decision making narrative: Patient presents here with epigastric pain, feels like when he had pancreatitis. Last flare was a year ago, unsure what brought it on, he denies heavy alcohol use, though he did have some drinks yesterday but he had already been having some epigastric pain for last 2 days with some nausea. Still has his gallbladder. 1) Differential diagnosis: Pancreatitis, PUD, cholecystitis or cholelithiasis 2) Comorbidities: Pancreatitis 3) External notes reviewed: Prior admission notes 4) History sources independently obtained from: [] 5) Discussion of management with: Hospitalist 6) Independent interpretation of: 7) Diagnostic tests or therapies considered but not ordered: n/a 8) Social determinants of health: [] 9) Shared decision making: Labs and CT imaging consistent with pancreatitis, uncomplicated. Patient given pain medication including IV morphine, Zofran, here and on re-evaluation is still reporting severe pain and nausea. Given additional medications, offered admission which he accepted, discussed with hospitalist for admission. Lab Data 09/18/24 08:09 09/18/24 08:08 Labs: Lab Results 09/18/24 09/18/24 09/18/24 Range/Units 08:08 08:09 08:13 WBC 11.4 H (4.5-10.0) K/mm3 RBC 5.30 (4.6-6.20) M/mm3 Hgb 16.5 (14.0-18.0) g/dL Hct 49.2 (42.0-52.0) % MCV 92.8 (80-100) fl MCH 31.1 (26-34) pg MCHC 33.5 (32-36) g/dl RDW 14.0 (11.5-14.5) % Plt Count 285 (150-375) k/mm3 MPV 11.1 H (7.4-10.4) fl Immature Gran % (Auto) 1.7 H (0-0.5) % Neut % (Auto) 78.3 H (45.5-73.1) % Lymph % (Auto) 14.4 L (18.3-44.2) % [place] % (Auto) 4.6 (2.6-8.5) % Eos % (Auto) 0.5 (0-4.4) % Baso % (Auto) 0.5 (0.2-1.2) % Lymph # (Auto) 1.65 (0.9-3.2) K/mm3 [place] # (Auto) 0.5 (0.1-0.6) K/mm3 Eos # (Auto) 0.1 (0-0.3) K/mm3 Baso # (Auto) 0.1 (0.0-0.1) K/mm3 Abs Immat Gran (auto) 0.20 H (0.00-0.031) K/mm3 Absolute Neuts (auto) 8.9 H (1.3-6.7) K/mm3 Absolute Nucleated RBC 0.000 (0.0-0.012) K/mm3 Nucleated RBC % 0.0 (0.0-0.2) % Sodium 140 (137-145) mmol/L Potassium 4.2 (3.4-5.0) mmol/L Chloride 103 (98-107) mmol/L Carbon Dioxide 23 (22-30) mmol/L Anion Gap 14 H (4-12) mmol/L BUN 8 L (9-20) mg/dL Creatinine 0.65 L (0.7-1.3) mg/dL Estim Creat Clear Calc 151 ml/min Estimated GFR > 60 (59 - ) Glucose 141 H (65-110) mg/dL Calcium 9.2 (8.4-10.2) mg/dL Total Bilirubin 0.7 (0.2-1.3) mg/dL AST 22 (17-59) U/L ALT 32 (6-50) U/L Alkaline Phosphatase 99 (38-126) U/L Total Protein 9.0 H (6.3-8.2) g/dL Albumin 4.9 (3.5-5.1) g/dL Lipase 2108 H (23-300) U/L Urine Color Yellow (Yellow) Urine Appearance Clear (Clear) Urine pH 5.0 (5.0-9.0) Ur Specific [place] 1.022 (1.001-1.035) Urine Protein Trace (Negative) mg/dL Urine Glucose (UA) Negative (Negative) mg/dL Urine Ketones Negative (Negative) mg/dL Ur Blood (Man) Negative (Negative) Urine Nitrate Negative (Negative) Urine Bilirubin Negative (Negative) Urine Urobilinogen 0.2 (<2.0) mg/dL Leukocyte Esterase Rfl Negative (Negative) KATHI/UL Urine RBC 0-2 (0-2) /hpf Urine WBC 0-5 (0-3) /hpf Ur Squamous Epith Cells None seen (Few) /hpf Urine Bacteria None seen /hpf Urine Casts 0-2 Imaging Data Radiologist's impression: ITS Impressions Abdomen/Pelvis CT 09/18/24 09:13 IMPRESSION: 1. Acute uncomplicated pancreatitis. Discharge Plan Discharge Clinical Impression: Acute pancreatitis Qualifiers: Pancreatitis type: alcohol induced Acute pancreatitis complication: no infection or necrosis Qualified Code(s): K85.20 - Alcohol induced acute pancreatitis without necrosis or infection Patient Disposition: Still a Patient Condition: Stable
[2024-09-18 10:58] VITALS: BP 140/93; PULSE 81; RESP 20; O2SAT 98
[2024-09-18] MEDS: KETOROLAC 15 MG/ML VIAL (*BKC) IV PUSH (11:01)
[2024-09-18 11:12] VITALS: BMI 23.3
--- NOTE | 2024-09-18 11:17 | ADMGEN ---
This patient, Alonso Bender, was admitted to Medical Room 251-01. Patient/family oriented to hospital policies and general routines including ID bracelet, bed and alarms, visiting hours, pain management, procedures, bathroom and other care routines, personal items, smoking policy, room service/diet, and visiting hours. Information on how to activate the Rapid Response Team has been discussed. Patient/Family are encouraged to report perceived risks to care and to ask questions if they do not understand what they are told or what they should do.
[2024-09-18] MEDS: LACTATED RINGERS 1,000 ML 125 ML IV CONT (11:47)
--- NOTE | 2024-09-18 12:32 | P.HP_ITS ---
H&P: HPI History of Present Illness Date/Time: 09/18/24 12:32 Chief Complaint: Acute abdominal pain Narrative: 28-year-old male with history of alcohol abuse and pancreatitis presents hospital with abdominal pain. Patient states that he did drink alcohol today however he has severely cut down from his prior to admission. And his pancreatic attacks have been more spread out and less severe. He states that he is unable to tolerate water causing nausea and vomiting acute pain. Side present to the hospital. In the ED his white count is 11.4, anion gap of 14, BUN of 8, glucose of 141, lipase of 2108, UA negative for infection.CT abdomen pelvis shows acute uncomplicated pancreatitis. In the ED he was started on fluids and given pain meds. Review of Systems Review of Systems: 12 systems were reviewed and are negativ e except for as per HPI. [facility] Past Medical History Medical History Alcohol abuse Pancreatitis Surgical History Surgical History History of open reduction and internal fixation (ORIF) procedure Left femur. Family History Family History Mother Cerebrovascular accident Hypertension Social History Social History Social History: Surrogate medical decision maker: Ember Jordan, friend. Code status: Full code. Smoking status: Current every day smoker Tobacco type: e-cigarettes/vaping Alcohol intake: current Drinks per week: 6 Alcohol use details: A 5th of alcohol every 2 days. Substance use: current Substance use type: marijuana Other substance usage details: 08/2024 Last use: 02/22/24 Do You Feel Safe in your Home?: Yes Lack of Transportation: No Lack of Food: Never True Current Housing: I Have Housing Concerned About Future Housing: No Difficulty Paying Gas/Electric Bills: No Difficulty Paying for Meds: No Currently Unemployed: YES Education: Decline to Answer Difficulty w/ Childcare or Family Care: No Spiritual care concerns: No Meds Home Medications and Allergies Home Medications ?Medication ?Instructions ?Recorded ?Confirmed ?Type hydrocodone 5 mg-acetaminophen 325 1 tablet PO Q6H PRN Pain Rated 03/05/24 09/18/24 Rx mg tablet 4-10 #10 tabs pantoprazole 40 mg tablet,delayed 40 mg PO QAM #30 tabs 03/05/24 09/18/24 Rx release thiamine HCl (vitamin B1) 100 mg 100 mg PO QAM #30 tabs 03/05/24 09/18/24 Rx tablet (Vitamin B-1) Allergies Allergy/AdvReac Type Severity Reaction Status Date / Time No Known Allergies Allergy Verified 09/18/24 08:03 Vital Signs Vital Signs - 24 hr 09/18/24 07:59 09/18/24 10:58 09/18/24 11:36 Temperature 98.1 F Pulse Rate 86 81 Respiratory Rate 16 20 Blood Pressure 152/97 H 140/93 H Pulse Oximetry 99 98 Oxygen Delivery Room Air Exam Narrative: General: well appearing, appears stated age. HEENT: normocephalic, atraumatic. Mucous membranes moist. EOMI, PERRLA, bilateral sclera anicteric, no conjunctival injection. Neck supple without JVD, lymphadenopathy, or bruit. Respiratory: clear to ascultation bilaterally. No rales/rhonic/wheezes. Cardiovascular: Regular rate and rhythm, normal S1-S2 upon ascultation. No murmurs, rubs, or clicks. PMI is nondisplaced, capillary refill less than 3 second. Abdomen: Soft, round, no pulsatile masses, nondistended and nontender. No rebound, no guarding. No CVA tenderness, no hepatosplenomegaly. Bowel sounds present to all four quadrants. No high pitch or tinkling sounds, resonant to percussion. Extremities: No cyanosis, clubbing, or edema present. Pulses are palpable 2/2. Active ROM to all four extremities. Neuro: Alert and orientated x 4. PERRLA. Cranial nerves 2-12 intact without focal deficit. Skin: Warm, dry, and intact, without rash, erythema, or lesion. Psych: pleasant, cooperative, normal speech, normal affect, no hallucinations, no dysarthia H&P: Results Labs Labs: Short CBC 09/18/24 Range/Units 08:09 WBC 11.4 H (4.5-10.0) K/mm3 Hgb 16.5 (14.0-18.0) g/dL Hct 49.2 (42.0-52.0) % Plt Count 285 (150-375) k/mm3 BMP 09/18/24 08:08 Sodium 140 Potassium 4.2 Chloride 103 Carbon Dioxide 23 BUN 8 L Creatinine 0.65 L Glucose 141 H Calcium 9.2 Liver Function 09/18/24 Range/Units 08:08 Total Bilirubin 0.7 (0.2-1.3) mg/dL AST 22 (17-59) U/L ALT 32 (6-50) U/L Alkaline Phosphatase 99 (38-126) U/L Albumin 4.9 (3.5-5.1) g/dL Urine 09/18/24 Range/Units 08:13 Urine Color Yellow (Yellow) Urine Appearance Clear (Clear) Urine pH 5.0 (5.0-9.0) Ur Specific [place] 1.022 (1.001-1.035) Urine Protein Trace (Negative) mg/dL Urine Glucose (UA) Negative (Negative) mg/dL Assessment and Plan Assessment and plan (1) Acute on chronic pancreatitis: Code(s): K85.90 - Acute pancreatitis without necrosis or infection, unspecified; K86.1 - Other chronic pancreatitis Status: Acute Assessment and Plan: LR bolus followed by LR at 200 Diabetes Manager.o. lucila for water and ice chips Pain management Check lipid panel A.m. labs with lipase (2) Alcohol abuse: Code(s): F10.10 - Alcohol abuse, uncomplicated Status: Chronic Assessment and Plan: [facility] protocol Monitor for withdrawals (3) Acute pain: Code(s): R52 - Pain, unspecified Status: Acute Assessment and Plan: IV pain medicine Quality VTE Prophylaxis VTE prophylaxis: mechanical ordered Hospitalist MIPS Advance Care Plan I have confirmed that the patient's Advanced Care Plan is present, code status is documented, or surrogate decision maker is listed in patient medical record.: Yes Medication Reconciliation I have utilized all available resources to obtain, update and review the patients current medications (includes all prescriptions, OTC, herbals, ca nnabis, and nutritional supplements).: Yes
[2024-09-18] MEDS: LACTATED RINGERS 1,000 ML 999 ML IV CONT ×2 (12:38→20:30)
[2024-09-18] MEDS: HYDROmorphone HCL INJ (*CRX) 2 MG/ML VIAL 0.5 MG IV PUSH ×4 (12:38→21:42)
[2024-09-18 13:09] LABS: Glucose Point of Care 123 mg/dl (65-105)
[2024-09-18] MEDS: THIAMINE HCL 200 MG/2 ML VIAL 100 MG IV PUSH (13:37)
[2024-09-18 14:00] VITALS: BP 142/78; PULSE 94; RESP 18; TEMP 36.6; O2SAT 98
[2024-09-18 14:56] VITALS: BP 137/86; PULSE 96; RESP 18; TEMP 36.7; O2SAT 98
[2024-09-18] MEDS: LACTATED RINGERS 1,000 ML 200 ML IV CONT ×2 (16:31→21:41)
[2024-09-18 17:51] VITALS: BP 137/84; PULSE 83
[2024-09-18] MEDS: LORazepam (*CRX) 1 MG TABLET PO (18:05)
[2024-09-18 18:12] LABS: Glucose Point of Care 124 mg/dl (65-105)
[2024-09-18 22:00] VITALS: BP 150/86; PULSE 87; RESP 18; TEMP 36.8; O2SAT 95
[2024-09-19 00:10] LABS: Glucose Point of Care 125 mg/dl (65-105)
[2024-09-19] MEDS: HYDROmorphone HCL INJ (*CRX) 2 MG/ML VIAL 0.5 MG IV PUSH ×7 (00:49→20:55)
[2024-09-19] MEDS: ONDANSETRON INJ 4 MG/2 ML VIAL IV PUSH ×4 (00:49→16:29)
[2024-09-19] MEDS: LACTATED RINGERS 1,000 ML 200 ML IV CONT ×2 (02:31→08:59)
[2024-09-19 05:22] LABS: Alanine Aminotransferase 20 U/L (6-50); Albumin Level 3.6 g/dL (3.5-5.1); Alkaline Phosphatase 74 U/L (38-126); Anion Gap 7 mmol/L (4-12); Aspartate Amino Transferase 18 U/L (17-59); Bilirubin,Total 1.4 mg/dL (0.2-1.3); Blood Urea Nitrogen 8 mg/dL (9-20); Calcium 8.5 mg/dL (8.4-10.2); Carbon Dioxide 28 mmol/L (22-30); Chloride 99 mmol/L (98-107); Estimated CRCL calculation 178 ml/min; Estimated Glomerular Filt Rate > 60; Glucose 110 mg/dL (65-110); Lipase 1663 U/L (23-300); Magnesium 1.8 mg/dL (1.6-2.3); Phosphorus 2.8 mg/dL (2.5-4.5); Potassium 3.7 mmol/L (3.4-5.0); Sodium 134 mmol/L (137-145)
[2024-09-19 05:27] LABS: Cholesterol 179 mg/dL (0-200); HDL Direct 57 mg/dL; Triglycerides 223 mg/dL (<150)
[2024-09-19 05:37] LABS: LDL Cholesterol Direct 79 mg/dL
[2024-09-19 06:00] VITALS: BP 124/79; PULSE 78; RESP 18; TEMP 37.1; O2SAT 97
[2024-09-19 06:42] LABS: Glucose Point of Care 113 mg/dl (65-105)
[2024-09-19] MEDS: ENOXAPARIN 40 MG/0.4 ML SYRINGE SUB-Q (08:58)
[2024-09-19] MEDS: THIAMINE HCL 200 MG/2 ML VIAL 100 MG IV PUSH (08:58)
[2024-09-19 09:00] VITALS: PULSE 78; RESP 18; O2SAT 96
[2024-09-19 09:04] VITALS: O2SAT 96
--- NOTE | 2024-09-19 11:11 | PM.IMPN ---
Progress Note: A&P Assessment and Plan (1) Acute on chronic pancreatitis: Code(s): K85.90 - Acute pancreatitis without necrosis or infection, unspecified; K86.1 - Other chronic pancreatitis Status: Acute (2) Alcohol abuse: Code(s): F10.10 - Alcohol abuse, uncomplicated Status: Chronic (3) Acute pain: Code(s): R52 - Pain, unspecified Status: Acute Plan 28-year-old male with history of alcohol abuse and pancreatitis presents hospital with abdominal pain. Patient states that he did drink alcohol on day of admission however he has severely cut down from his prior to admission. And his pancreatic attacks have been more spread out and less severe. He states that he is unable to tolerate water causing nausea and vomiting acute pain. In the ED his white count is 11.4, anion gap of 14, BUN of 8, glucose of 141, lipase of 2108, UA negative for infection.CT abdomen pelvis shows acute uncomplicated pancreatitis. In the ED he was started on fluids and given pain meds. Acute pancreatitis Alcohol abuse History acute necrotizing pancreatitis March 2024 with pseudocyst formation needing drainage. DVT prophylaxis Lovenox Code status full code Subjective Date/time seen: 09/19/24 11:11 Interval history: Abdominal pain improving, no nausea vomiting. Labs reviewed. Review of Systems Review of Systems: All systems reviewed & are unremarkable except as noted in HPI and below Exam Narrative: General: well appearing, appears stated age. Acute distress HEENT: normocephalic, atraumatic. Mucous membranes moist. EOMI, PERRLA, Respiratory: clear to ascultation bilaterally. No rales/rhonic/wheezes. Cardiovascular: Regular rate and rhythm, normal S1-S2 upon ascultation. Abdomen: Soft, round, no pulsatile masses, nondistended and nontender. Extremities: No cyanosis, clubbing, or edema present. Pulses are palpable 2/2. Active ROM to all four extremities. Neuro: Alert and orientated x 4. PERRLA. Cranial nerves 2-12 intact without focal deficit. Skin: Warm, dry, and intact, without rash, erythema, or lesion. Psych: pleasant, cooperative, normal speech, normal affect, no hallucinations, no dysarthia Objective Data Vital Signs Vital Signs: Vital Signs - 24 hr 09/18/24 11:36 09/18/24 14:00 09/18/24 14:56 Temperature 97.9 F 98.1 F Pulse Rate 94 96 Respiratory Rate 18 18 Blood Pressure 142/78 H 137/86 Pulse Oximetry 98 98 Oxygen Delivery Room Air 09/18/24 17:51 09/18/24 20:00 09/18/24 22:00 Temperature 98.2 F Pulse Rate 83 87 Respiratory Rate 18 Blood Pressure 137/84 150/86 H Pulse Oximetry 95 Oxygen Delivery Room Air 09/19/24 06:00 09/19/24 09:00 09/19/24 09:04 Temperature 98.8 F Pulse Rate 78 78 Respiratory Rate 18 18 Blood Pressure 124/79 Pulse Oximetry 97 96 96 Oxygen Delivery Room Air Room Air Intake/Output Intake/Output: Intake & Output 09/16/24 09/17/24 09/18/24 09/19/24 23:59 23:59 23:59 23:59 Intake Total 3591.7 1966.7 Balance 3591.7 1966.7 Meds/Results Medications: Active Medications Generic Name Dose Route Start Last Admin Trade Name Freq PRN Reason Stop Dose Admin Enoxaparin Sodium 40 mg 09/19/24 09:00 09/19/24 08:58 Enoxaparin 40 Mg/0.4 Ml Syringe SUB-Q 40 mg DAILY CECY Administration Hydromorphone HCl 0.5 mg 09/18/24 12:31 09/19/24 10:27 Hydromorphone Hcl Inj (*Crx) 2 Mg/Ml Vial IV PUSH 0.5 mg Q3H PRN Administration Pain Rated 7-10 Lactated Ringer's 1,000 mls @ 200 mls/hr 09/18/24 09:55 09/19/24 08:59 Lr - Lactated Ringers Iv IV CONT 200 mls/hr .Q5H CECY Administration Lorazepam 2 mg 09/18/24 12:37 Lorazepam Inj (*Crx) 2 Mg/Ml Vial IV PUSH Q2H PRN CIWA > 15 Ondansetron HCl 4 mg 09/18/24 16:16 09/19/24 10:27 Ondansetron Inj 4 Mg/2 Ml Vial IV PUSH 4 mg Q4H PRN Administration Nausea And Vomiting Thiamine HCl 100 mg 09/18/24 12:40 09/19/24 08:58 Thiamine Hcl 200 Mg/2 Ml Vial IV PUSH 100 mg DAILY CECY Administration Radiology Results: ITS Impressions Abdomen/Pelvis CT 09/18/24 09:13 IMPRESSION: 1. Acute uncomplicated pancreatitis. Labs Labs: Laboratory Results - last 24 hr 09/18/24 09/18/24 09/19/24 13:06 18:08 00:07 Sodium Potassium Chloride Carbon Dioxide Anion Gap BUN Creatinine Estim Creat Clear Calc Estimated GFR Glucose POC Capillary Glucose 123 H 124 H 125 H Calcium Phosphorus Magnesium Total Bilirubin AST ALT Alkaline Phosphatase Total Protein Albumin Triglycerides Cholesterol LDL Cholesterol Direct HDL Direct Lipase 09/19/24 09/19/24 04:38 06:25 Sodium 134 L Potassium 3.7 Chloride 99 Carbon Dioxide 28 Anion Gap 7 BUN 8 L Creatinine 0.56 L Estim Creat Clear Calc 178 Estimated GFR > 60 Glucose 110 POC Capillary Glucose 113 H Calcium 8.5 Phosphorus 2.8 Magnesium 1.8 Total Bilirubin 1.4 H AST 18 ALT 20 Alkaline Phosphatase 74 Total Protein 6.0 L Albumin 3.6 Triglycerides 223 H Cholesterol 179 LDL Cholesterol Direct 79 HDL Direct 57 Lipase 1663 H
[2024-09-19 11:52] LABS: Glucose Point of Care 109 mg/dl (65-105)
[2024-09-19 13:33] VITALS: BP 130/82; PULSE 83; RESP 16; TEMP 37.1; O2SAT 97
[2024-09-19] MEDS: LACTATED RINGERS 1,000 ML 150 ML IV CONT ×2 (15:45→21:38)
[2024-09-19 17:59] LABS: Glucose Point of Care 101 mg/dl (65-105)
[2024-09-19 20:00] VITALS: BP 130/82; PULSE 83; RESP 16; O2SAT 97
[2024-09-19 20:52] LABS: Glucose Point of Care 142 mg/dl (65-105)
[2024-09-19 22:00] VITALS: BP 145/90; PULSE 90; RESP 18; TEMP 36.8; O2SAT 98
[2024-09-20] MEDS: HYDROmorphone HCL INJ (*CRX) 2 MG/ML VIAL 0.5 MG IV PUSH ×7 (00:53→21:32)
[2024-09-20] MEDS: LACTATED RINGERS 1,000 ML 150 ML IV CONT ×3 (04:31→21:35)
[2024-09-20 05:28] LABS: Basophils Percent Auto 0.4 % (0.2-1.2); Eosinophils Absolute Auto 0.2 K/mm3 (0-0.3); Eosinophils Percent Auto 3.9 % (0-4.4); Hematocrit 39.7 % (42.0-52.0); Hemoglobin 13.2 g/dL (14.0-18.0); Immature Granulocyte Absolute 0.01 K/mm3 (0.00-0.031); Immature Granulocyte Percent A 0.2 % (0-0.5); Immature Platelet Fraction Pct 8.8 % (0.9-11.2); Lymphocytes Absolute Auto 2.16 K/mm3 (0.9-3.2); Lymphocytes Percent Auto 40.1 % (18.3-44.2); Mean Corpuscular HGB Conc 33.2 g/dl (32-36); Mean Corpuscular Volume 93.2 fl (80-100); Mean Platelet Volume 11.7 fl (7.4-10.4); Monocytes Absolute Auto 0.5 K/mm3 (0.1-0.6); Monocytes Percent Auto 9.9 % (2.6-8.5); Neutrophils Absolute Auto 2.5 K/mm3 (1.3-6.7); Neutrophils Percent Auto 45.5 % (45.5-73.1); Platelet Count Result 140 k/mm3 (150-375); Red Blood Count 4.26 M/mm3 (4.6-6.20); Red Cell Distribution Width 13.5 % (11.5-14.5); White Blood Count 5.4 K/mm3 (4.5-10.0)
[2024-09-20 05:30] VITALS: BP 133/81; PULSE 71; RESP 16; TEMP 36.9; O2SAT 98
[2024-09-20 05:30] LABS: Alanine Aminotransferase 18 U/L (6-50); Albumin Level 3.7 g/dL (3.5-5.1); Alkaline Phosphatase 71 U/L (38-126); Anion Gap 5 mmol/L (4-12); Aspartate Amino Transferase 17 U/L (17-59); Bilirubin,Total 0.9 mg/dL (0.2-1.3); Blood Urea Nitrogen 5 mg/dL (9-20); Calcium 8.6 mg/dL (8.4-10.2); Carbon Dioxide 31 mmol/L (22-30); Chloride 100 mmol/L (98-107); Estimated CRCL calculation 170 ml/min; Estimated Glomerular Filt Rate > 60; Glucose 98 mg/dL (65-110); Lipase 644 U/L (23-300); Magnesium 1.9 mg/dL (1.6-2.3); Potassium 3.6 mmol/L (3.4-5.0); Sodium 136 mmol/L (137-145)
[2024-09-20] MEDS: THIAMINE HCL 200 MG/2 ML VIAL 100 MG IV PUSH (08:19)
[2024-09-20] MEDS: ENOXAPARIN 40 MG/0.4 ML SYRINGE SUB-Q (08:20)
[2024-09-20 08:51] VITALS: TEMP 36.9
[2024-09-20 12:06] LABS: Glucose Point of Care 73 mg/dl (65-105)
--- NOTE | 2024-09-20 12:47 | P.PNIM_ITS ---
Progress Note: A&P Assessment and Plan (1) Acute on chronic pancreatitis: Code(s): K85.90 - Acute pancreatitis without necrosis or infection, unspecified; K86.1 - Other chronic pancreatitis Status: Acute (2) Alcohol abuse: Code(s): F10.10 - Alcohol abuse, uncomplicated Status: Chronic (3) Acute pain: Code(s): R52 - Pain, unspecified Status: Acute Plan 28-year-old male with history of alcohol abuse and pancreatitis presents hospital with abdominal pain. Patient states that he did drink alcohol on day of admission however he has severely cut down from his prior to admission. And his pancreatic attacks have been more spread out and less severe. He states that he is unable to tolerate water causing nausea and vomiting acute pain. In the ED his white count is 11.4, anion gap of 14, BUN of 8, glucose of 141, lipase of 2108, UA negative for infection.CT abdomen pelvis shows acute uncomplicated pancreatitis. In the ED he was started on fluids and given pain meds. Acute pancreatitis continue IV fluids improving. Lipase trending down. Alcohol abuse watch with [facility] protocol History acute necrotizing pancreatitis March 2024 with pseudocyst formation needing drainage. DVT prophylaxis Lovenox Code status full code Subjective Date/time seen: 09/20/24 12:47 Interval history: Feels better. Tolerated clear liquid diet. No nausea vomiting. Ambulating. Review of Systems Review of Systems: All systems reviewed & are unremarkable except as noted in HPI and below Exam Narrative: General: well appearing, appears stated age. Acute distress HEENT: normocephalic, atraumatic. Mucous membranes moist. EOMI, PERRLA, Respiratory: clear to ascultation bilaterally. No rales/rhonic/wheezes. Cardiovascular: Regular rate and rhythm, normal S1-S2 upon ascultation. Abdomen: Soft, round, no pulsatile masses, nondistended and nontender. Extremities: No cyanosis, clubbing, or edema present. Pulses are palpable 2/2. Active ROM to all four extremities. Neuro: Alert and orientated x 4. PERRLA. Cranial nerves 2-12 intact without focal deficit. Skin: Warm, dry, and intact, without rash, erythema, or lesion. Psych: pleasant, cooperative, normal speech, normal affect, no hallucinations, no dysarthia Objective Data Vital Signs Vital Signs: Vital Signs - 24 hr 09/19/24 13:33 09/19/24 20:00 09/19/24 20:00 Temperature 98.7 F Pulse Rate 83 83 Respiratory Rate 16 16 Blood Pressure 130/82 130/82 Pulse Oximetry 97 97 Oxygen Delivery Room Air 09/19/24 22:00 09/20/24 05:30 09/20/24 08:20 Temperature 98.3 F 98.4 F Pulse Rate 90 71 Respiratory Rate 18 16 Blood Pressure 145/90 H 133/81 Pulse Oximetry 98 98 Oxygen Delivery Room Air 09/20/24 08:51 Temperature 98.4 F Pulse Rate Respiratory Rate Blood Pressure Pulse Oximetry Oxygen Delivery Intake/Output Intake/Output: Intake & Output 09/17/24 09/18/24 09/19/24 09/20/24 23:59 23:59 23:59 23:59 Intake Total 3591.7 3849.2 1577 Balance 3591.7 3849.2 1577 Meds/Results Medications: Active Medications Generic Name Dose Route Start Last Admin Trade Name Freq PRN Reason Stop Dose Admin Enoxaparin Sodium 40 mg 09/19/24 09:00 09/20/24 08:20 Enoxaparin 40 Mg/0.4 Ml Syringe SUB-Q 40 mg DAILY CECY Administration Hydromorphone HCl 0.5 mg 09/18/24 12:31 09/20/24 11:30 Hydromorphone Hcl Inj (*Crx) 2 Mg/Ml Vial IV PUSH 0.5 mg Q3H PRN Administration Pain Rated 7-10 Lactated Ringer's 1,000 mls @ 150 mls/hr 09/18/24 09:55 09/20/24 04:31 Lr - Lactated Ringers Iv IV CONT 150 mls/hr .Q6H40M CECY Administration Lorazepam 2 mg 09/18/24 12:37 Lorazepam Inj (*Crx) 2 Mg/Ml Vial IV PUSH Q2H PRN CIWA > 15 Ondansetron HCl 4 mg 09/18/24 16:16 09/19/24 16:29 Ondansetron Inj 4 Mg/2 Ml Vial IV PUSH 4 mg Q4H PRN Administration Nausea And Vomiting Thiamine HCl 100 mg 09/18/24 12:40 09/20/24 08:19 Thiamine Hcl 200 Mg/2 Ml Vial IV PUSH 100 mg DAILY CECY Administration Radiology Results: ITS Impressions Abdomen/Pelvis CT 09/18/24 09:13 IMPRESSION: 1. Acute uncomplicated pancreatitis. Labs Labs: Laboratory Results - last 24 hr 09/19/24 09/19/24 09/20/24 17:57 20:08 04:29 WBC 5.4 RBC 4.26 L Hgb 13.2 L D Hct 39.7 L MCV 93.2 MCH 31.0 MCHC 33.2 RDW 13.5 Plt Count 140 L D MPV 11.7 H Immature Gran % (Auto) 0.2 Neut % (Auto) 45.5 Lymph % (Auto) 40.1 [place] % (Auto) 9.9 H Eos % (Auto) 3.9 Baso % (Auto) 0.4 Lymph # (Auto) 2.16 [place] # (Auto) 0.5 Eos # (Auto) 0.2 Baso # (Auto) 0.0 Abs Immat Gran (auto) 0.01 Absolute Neuts (auto) 2.5 Absolute Nucleated RBC 0.000 Nucleated RBC % 0.0 % Immature Plt Fraction 8.8 Sodium 136 L Potassium 3.6 Chloride 100 Carbon Dioxide 31 H Anion Gap 5 BUN 5 L Creatinine 0.59 L Estim Creat Clear Calc 170 Estimated GFR > 60 Glucose 98 POC Capillary Glucose 101 142 H Calcium 8.6 Magnesium 1.9 Total Bilirubin 0.9 AST 17 ALT 18 Alkaline Phosphatase 71 Total Protein 7.0 Albumin 3.7 Lipase 644 H 09/20/24 12:02 WBC RBC Hgb Hct MCV MCH MCHC RDW Plt Count MPV Immature Gran % (Auto) Neut % (Auto) Lymph % (Auto) [place] % (Auto) Eos % (Auto) Baso % (Auto) Lymph # (Auto) [place] # (Auto) Eos # (Auto) Baso # (Auto) Abs Immat Gran (auto) Absolute Neuts (auto) Absolute Nucleated RBC Nucleated RBC % % Immature Plt Fraction Sodium Potassium Chloride Carbon Dioxide Anion Gap BUN Creatinine Estim Creat Clear Calc Estimated GFR Glucose POC Capillary Glucose 73 Calcium Magnesium Total Bilirubin AST ALT Alkaline Phosphatase Total Protein Albumin Lipase
[2024-09-20 14:00] VITALS: BP 131/75; PULSE 75; RESP 18; TEMP 36.4; O2SAT 98
[2024-09-20 18:02] LABS: Glucose Point of Care 150 mg/dl (65-105)
[2024-09-20 20:00] VITALS: PULSE 75; RESP 18; O2SAT 98
[2024-09-20 22:00] VITALS: BP 128/75; PULSE 67; RESP 16; TEMP 36.5; O2SAT 97
[2024-09-21] MEDS: HYDROmorphone HCL INJ (*CRX) 2 MG/ML VIAL 0.5 MG IV PUSH ×6 (00:41→21:15)
[2024-09-21 01:11] LABS: Glucose Point of Care 97 mg/dl (65-105)
[2024-09-21 05:20] VITALS: BP 122/73; PULSE 64; RESP 16; TEMP 36.5; O2SAT 97
[2024-09-21 05:43] LABS: Basophils Percent Auto 0.7 % (0.2-1.2); Eosinophils Absolute Auto 0.3 K/mm3 (0-0.3); Hematocrit 41.5 % (42.0-52.0); Immature Granulocyte Absolute 0.03 K/mm3 (0.00-0.031); Immature Granulocyte Percent A 0.5 % (0-0.5); Lymphocytes Absolute Auto 2.42 K/mm3 (0.9-3.2); Lymphocytes Percent Auto 40.3 % (18.3-44.2); Mean Corpuscular HGB Conc 33.7 g/dl (32-36); Mean Corpuscular Hemoglobin 31.3 pg (26-34); Mean Corpuscular Volume 92.6 fl (80-100); Mean Platelet Volume 11.2 fl (7.4-10.4); Monocytes Absolute Auto 0.6 K/mm3 (0.1-0.6); Monocytes Percent Auto 9.7 % (2.6-8.5); Neutrophils Absolute Auto 2.6 K/mm3 (1.3-6.7); Neutrophils Percent Auto 43.8 % (45.5-73.1); Platelet Count Result 187 k/mm3 (150-375); Red Blood Count 4.48 M/mm3 (4.6-6.20); Red Cell Distribution Width 13.5 % (11.5-14.5)
[2024-09-21 06:02] LABS: Glucose Point of Care 111 mg/dl (65-105)
[2024-09-21 06:04] LABS: Alanine Aminotransferase 19 U/L (6-50); Alkaline Phosphatase 72 U/L (38-126); Anion Gap 8 mmol/L (4-12); Aspartate Amino Transferase 22 U/L (17-59); Bilirubin,Total 0.6 mg/dL (0.2-1.3); Blood Urea Nitrogen 4 mg/dL (9-20); Calcium 9.1 mg/dL (8.4-10.2); Carbon Dioxide 29 mmol/L (22-30); Chloride 100 mmol/L (98-107); Estimated CRCL calculation 181 ml/min; Estimated Glomerular Filt Rate > 60; Glucose 101 mg/dL (65-110); Lipase 445 U/L (23-300); Magnesium 2.1 mg/dL (1.6-2.3); Potassium 3.6 mmol/L (3.4-5.0); Sodium 137 mmol/L (137-145)
[2024-09-21] MEDS: THIAMINE HCL 200 MG/2 ML VIAL 100 MG IV PUSH (09:24)
[2024-09-21] MEDS: ENOXAPARIN 40 MG/0.4 ML SYRINGE SUB-Q (09:25)
--- NOTE | 2024-09-21 10:58 | PM.IMPN ---
Progress Note: A&P Assessment and Plan (1) Acute on chronic pancreatitis: Code(s): K85.90 - Acute pancreatitis without necrosis or infection, unspecified; K86.1 - Other chronic pancreatitis Status: Acute (2) Alcohol abuse: Code(s): F10.10 - Alcohol abuse, uncomplicated Status: Chronic (3) Acute pain: Code(s): R52 - Pain, unspecified Status: Acute Plan 28-year-old male with history of alcohol abuse and pancreatitis presents hospital with abdominal pain. Patient states that he did drink alcohol on day of admission however he has severely cut down from his prior to admission. And his pancreatic attacks have been more spread out and less severe. He states that he is unable to tolerate water causing nausea and vomiting acute pain. In the ED his white count is 11.4, anion gap of 14, BUN of 8, glucose of 141, lipase of 2108, UA negative for infection.CT abdomen pelvis shows acute uncomplicated pancreatitis. In the ED he was started on fluids and given pain meds. Acute pancreatitis continue IV fluids improving. Lipase trending down. Alcohol abuse watch with [facility] protocol History acute necrotizing pancreatitis March 2024 with pseudocyst formation needing drainage. Leukocytosis resolved, afebrile, blood pressure stable, Still feeling nauseous, and abdomen pain DVT prophylaxis Lovenox Code status full code Subjective Date/time seen: 09/21/24 10:58 Interval history: Patient still has abdomen, denies vomiting, patient tolerate liquid diet Exam Narrative: General: well appearing, appears stated age. Acute distress HEENT: normocephalic, atraumatic. Mucous membranes moist. EOMI, PERRLA, Respiratory: clear to ascultation bilaterally. No rales/rhonic/wheezes. Cardiovascular: Regular rate and rhythm, normal S1-S2 upon ascultation. Abdomen: Soft, round, no pulsatile masses, nondistended mid abdominal tender. Extremities: No cyanosis, clubbing, or edema present. Pulses are palpable 2/2. Active ROM to all four extremities. Neuro: Alert and orientated x 4. PERRLA. Cranial nerves 2-12 intact without focal deficit. Skin: Warm, dry, and intact, without rash, erythema, or lesion. Psych: pleasant, cooperative, normal speech, normal affect, no hallucinations, no dysarthia Objective Data Vital Signs Vital Signs: Vital Signs - 24 hr 09/20/24 14:00 09/20/24 20:00 09/20/24 22:00 Temperature 97.5 F L 97.7 F Pulse Rate 75 75 67 Respiratory Rate 18 18 16 Blood Pressure 131/75 128/75 Pulse Oximetry 98 98 97 Oxygen Delivery Room Air 09/21/24 05:20 09/21/24 09:30 Temperature 97.7 F Pulse Rate 64 Respiratory Rate 16 Blood Pressure 122/73 Pulse Oximetry 97 Oxygen Delivery Room Air Intake/Output Intake/Output: Intake & Output 09/18/24 09/19/24 09/20/24 09/21/24 23:59 23:59 23:59 23:59 Intake Total 3591.7 3849.2 4177 1070 Balance 3591.7 3849.2 4177 1070 Meds/Results Medications: Active Medications Generic Name Dose Route Start Last Admin Trade Name Freq PRN Reason Stop Dose Admin Enoxaparin Sodium 40 mg 09/19/24 09:00 09/21/24 09:25 Enoxaparin 40 Mg/0.4 Ml Syringe SUB-Q 40 mg DAILY CECY Administration Hydromorphone HCl 0.5 mg 09/18/24 12:31 09/21/24 09:23 Hydromorphone Hcl Inj (*Crx) 2 Mg/Ml Vial IV PUSH 0.5 mg Q3H PRN Administration Pain Rated 7-10 Lactated Ringer's 1,000 mls @ 150 mls/hr 09/18/24 09:55 09/21/24 09:25 Lr - Lactated Ringers Iv IV CONT Not Given .Q6H40M [facility] Lorazepam 2 mg 09/18/24 12:37 Lorazepam Inj (*Crx) 2 Mg/Ml Vial IV PUSH Q2H PRN CIWA > 15 Ondansetron HCl 4 mg 09/18/24 16:16 09/19/24 16:29 Ondansetron Inj 4 Mg/2 Ml Vial IV PUSH 4 mg Q4H PRN Administration Nausea And Vomiting Thiamine HCl 100 mg 09/18/24 12:40 09/21/24 09:24 Thiamine Hcl 200 Mg/2 Ml Vial IV PUSH 100 mg DAILY CECY Administration Radiology Results: ITS Impressions Abdomen/Pelvis CT 09/18/24 09:13 IMPRESSION: 1. Acute uncomplicated pancreatitis. Labs Labs: Laboratory Results - last 24 hr 09/20/24 09/20/24 09/21/24 12:02 17:59 00:10 WBC RBC Hgb Hct MCV MCH MCHC RDW Plt Count MPV Immature Gran % (Auto) Neut % (Auto) Lymph % (Auto) Bailey % (Auto) Eos % (Auto) Baso % (Auto) Lymph # (Auto) Bailey # (Auto) Eos # (Auto) Baso # (Auto) Abs Immat Gran (auto) Absolute Neuts (auto) Absolute Nucleated RBC Nucleated RBC % Sodium Potassium Chloride Carbon Dioxide Anion Gap BUN Creatinine Estim Creat Clear Calc Estimated GFR Glucose POC Capillary Glucose 73 150 H 97 Calcium Magnesium Total Bilirubin AST ALT Alkaline Phosphatase Total Protein Albumin Lipase 09/21/24 09/21/24 05:13 05:35 WBC 6.0 RBC 4.48 L Hgb 14.0 Hct 41.5 L MCV 92.6 MCH 31.3 MCHC 33.7 RDW 13.5 Plt Count 187 MPV 11.2 H Immature Gran % (Auto) 0.5 Neut % (Auto) 43.8 L Lymph % (Auto) 40.3 Bailey % (Auto) 9.7 H Eos % (Auto) 5.0 H Baso % (Auto) 0.7 Lymph # (Auto) 2.42 Bailey # (Auto) 0.6 Eos # (Auto) 0.3 Baso # (Auto) 0.0 Abs Immat Gran (auto) 0.03 Absolute Neuts (auto) 2.6 Absolute Nucleated RBC 0.000 Nucleated RBC % 0.0 Sodium 137 Potassium 3.6 Chloride 100 Carbon Dioxide 29 Anion Gap 8 BUN 4 L Creatinine 0.55 L Estim Creat Clear Calc 181 Estimated GFR > 60 Glucose 101 POC Capillary Glucose 111 H Calcium 9.1 Magnesium 2.1 Total Bilirubin 0.6 AST 22 ALT 19 Alkaline Phosphatase 72 Total Protein 7.0 Albumin 4.0 Lipase 445 H
[2024-09-21 11:48] LABS: Glucose Point of Care 94 mg/dl (65-105)
[2024-09-21] MEDS: LACTATED RINGERS 1,000 ML 150 ML IV CONT ×2 (13:13→21:18)
[2024-09-21 14:00] VITALS: BP 131/78; PULSE 66; RESP 12; O2SAT 98
[2024-09-21 18:15] LABS: Glucose Point of Care 118 mg/dl (65-105)
[2024-09-21 20:40] VITALS: O2SAT 98
[2024-09-21 22:45] VITALS: BP 126/78; PULSE 68; RESP 16; TEMP 36.4; O2SAT 99
[2024-09-22] MEDS: HYDROmorphone HCL INJ (*CRX) 2 MG/ML VIAL 0.5 MG IV PUSH ×2 (01:41→09:36)
[2024-09-22] MEDS: LACTATED RINGERS 1,000 ML 150 ML IV CONT (04:15)
[2024-09-22 06:53] VITALS: BP 128/77; PULSE 62; RESP 14; TEMP 36.7; O2SAT 97
[2024-09-22] MEDS: ENOXAPARIN 40 MG/0.4 ML SYRINGE SUB-Q (08:42)
[2024-09-22 08:43] VITALS: RESP 16; O2SAT 97
[2024-09-22] MEDS: THIAMINE HCL 200 MG/2 ML VIAL 100 MG IV PUSH (08:43)
--- NOTE | 2024-09-22 09:00 | P.PNIM_ITS ---
Progress Note: A&P Assessment and Plan (1) Acute on chronic pancreatitis: Code(s): K85.90 - Acute pancreatitis without necrosis or infection, unspecified; K86.1 - Other chronic pancreatitis Status: Acute (2) Alcohol abuse: Code(s): F10.10 - Alcohol abuse, uncomplicated Status: Chronic (3) Acute pain: Code(s): R52 - Pain, unspecified Status: Acute Plan 28-year-old male with history of alcohol abuse and pancreatitis presents hospital with abdominal pain. Patient states that he did drink alcohol on day of admission however he has severely cut down from his prior to admission. And his pancreatic attacks have been more spread out and less severe. He states that he is unable to tolerate water causing nausea and vomiting acute pain. In the ED his white count is 11.4, anion gap of 14, BUN of 8, glucose of 141, lipase of 2108, UA negative for infection.CT abdomen pelvis shows acute uncomplicated pancreatitis. In the ED he was started on fluids and given pain meds. Acute pancreatitis continue IV fluids improving. Lipase trending down. Alcohol abuse watch with [facility] protocol History acute necrotizing pancreatitis March 2024 with pseudocyst formation needing drainage. Leukocytosis resolved, afebrile, blood pressure stable, Changed to low-fat diet today, discontinued Dilaudid, start oxycodone 5 mg q.4 hours p.r.n. and discontinue IV fluid DVT prophylaxis Lovenox Code status full code If patient can tolerate regular diet, patient may be discharged tomorrow Subjective Date/time seen: 09/22/24 09:00 Interval history: Patient still has abdomen, pain is better controlled. Denies vomiting, patient tolerate liquid diet Exam Narrative: General: well appearing, appears stated age. Acute distress HEENT: normocephalic, atraumatic. Mucous membranes moist. EOMI, PERRLA, Respiratory: clear to ascultation bilaterally. No rales/rhonic/wheezes. Cardiovascular: Regular rate and rhythm, normal S1-S2 upon ascultation. Abdomen: Soft, round, no pulsatile masses, nondistended mid abdominal tender. Extremities: No cyanosis, clubbing, or edema present. Pulses are palpable 2/2. Active ROM to all four extremities. Neuro: Alert and orientated x 4. PERRLA. Cranial nerves 2-12 intact without focal deficit. Skin: Warm, dry, and intact, without rash, erythema, or lesion. Psych: pleasant, cooperative, normal speech, normal affect, no hallucinations, no dysarthia Objective Data Vital Signs Vital Signs: Vital Signs - 24 hr 09/21/24 09:30 09/21/24 14:00 09/21/24 20:40 Temperature Pulse Rate 66 Respiratory Rate 12 Blood Pressure 131/78 Pulse Oximetry 98 98 Oxygen Delivery Room Air Room Air 09/21/24 22:45 09/22/24 06:53 Temperature 97.6 F 98.0 F Pulse Rate 68 62 Respiratory Rate 16 14 Blood Pressure 126/78 128/77 Pulse Oximetry 99 97 Oxygen Delivery Intake/Output Intake/Output: Intake & Output 09/19/24 09/20/24 09/21/24 09/22/24 23:59 23:59 23:59 23:59 Intake Total 3849.2 4177 4270 1300 Balance 3849.2 4177 4270 1300 Meds/Results Medications: Active Medications Generic Name Dose Route Start Last Admin Trade Name Freq PRN Reason Stop Dose Admin Enoxaparin Sodium 40 mg 09/19/24 09:00 09/22/24 08:42 Enoxaparin 40 Mg/0.4 Ml Syringe SUB-Q 40 mg DAILY CECY Administration Hydromorphone HCl 0.5 mg 09/18/24 12:31 09/22/24 01:41 Hydromorphone Hcl Inj (*Crx) 2 Mg/Ml Vial IV PUSH 0.5 mg Q3H PRN Administration Pain Rated 7-10 Lactated Ringer's 1,000 mls @ 150 mls/hr 09/18/24 09:55 09/22/24 04:15 Lr - Lactated Ringers Iv IV CONT 150 mls/hr .Q6H40M CECY Administration Lorazepam 2 mg 09/18/24 12:37 Lorazepam Inj (*Crx) 2 Mg/Ml Vial IV PUSH Q2H PRN CIWA > 15 Ondansetron HCl 4 mg 09/18/24 16:16 09/19/24 16:29 Ondansetron Inj 4 Mg/2 Ml Vial IV PUSH 4 mg Q4H PRN Administration Nausea And Vomiting Thiamine HCl 100 mg 09/18/24 12:40 09/22/24 08:43 Thiamine Hcl 200 Mg/2 Ml Vial IV PUSH 100 mg DAILY CECY Administration Radiology Results: ITS Impressions Abdomen/Pelvis CT 09/18/24 09:13 IMPRESSION: 1. Acute uncomplicated pancreatitis. Labs Labs: Laboratory Results - last 24 hr 09/21/24 09/21/24 11:46 18:05 POC Capillary Glucose 94 118 H
[2024-09-22] MEDS: oxyCODONE/ACETAMINOPHEN (*CRX) 5-325 MG TABLET 1 TABLET PO ×3 (12:56→22:14)
[2024-09-22 13:59] VITALS: BP 130/82; PULSE 71; RESP 18; TEMP 36.1; O2SAT 98
[2024-09-22 21:29] VITALS: BP 132/87; PULSE 65; RESP 16; TEMP 36.7; O2SAT 97
[2024-09-23] MEDS: oxyCODONE/ACETAMINOPHEN (*CRX) 5-325 MG TABLET 1 TABLET PO (04:28)
[2024-09-23 06:23] VITALS: BP 117/75; PULSE 67; RESP 14; TEMP 36.7; O2SAT 100
[2024-09-23] MEDS: THIAMINE HCL 200 MG/2 ML VIAL 100 MG IV PUSH (08:49)
[2024-09-23] MEDS: ENOXAPARIN 40 MG/0.4 ML SYRINGE SUB-Q (08:50)
--- NOTE | 2024-09-23 09:20 | P.DS_ITS ---
DS: Admitting Diagnosis Discharge Date 09/23/2024 Admitting Diagnosis Acute pancreatitis DS: Discharge Diagnosis Discharge Diagnosis (1) Acute on chronic pancreatitis: Code(s): K85.90 - Acute pancreatitis without necrosis or infection, unspecified; K86.1 - Other chronic pancreatitis Status: Acute (2) Alcohol abuse: Code(s): F10.10 - Alcohol abuse, uncomplicated Status: Chronic (3) Acute pain: Code(s): R52 - Pain, unspecified Status: Acute Plan 28-year-old male with history of alcohol abuse and pancreatitis presents hospital with abdominal pain. Patient states that he did drink alcohol on day of admission however he has severely cut down from his prior to admission. And his pancreatic attacks have been more spread out and less severe. He states that he is unable to tolerate water causing nausea and vomiting acute pain. In the ED his white count is 11.4, anion gap of 14, BUN of 8, glucose of 141, lipase of 2108, UA negative for infection.CT abdomen pelvis shows acute uncomplicated pancreatitis. In the ED he was started on fluids and given pain meds. Acute pancreatitis continue IV fluids improving. Lipase trending down. Alcohol abuse watch with [facility] protocol History acute necrotizing pancreatitis March 2024 with pseudocyst formation needing drainage. Leukocytosis resolved, afebrile, blood pressure stable, Changed to low-fat diet today, discontinued Dilaudid, start oxycodone 5 mg q.4 hours p.r.n. and discontinue IV fluid DVT prophylaxis Lovenox Code status full code If patient can tolerate regular diet, patient may be discharged tomorrow DS: Summary Hospital Course Reason for hospitalization: Abdominal pain Hospital Course: Patient was admitted with abdominal pain. Patient had pancreatitis probably secondary to alcohol abuse. Counseling was give and pain controlled with meds. patient improved with treatment. Today patient is feeling better and was discharged home in stable condition. Patient was referred to out patient rehab Status at Discharge Cognitive/behavioral status at discharge: Stable Time Spent with Patient Time attestation: Total time spent providing and/or coordinating discharge services: 30 minutes Exam Narrative: General: well appearing, appears stated age. Acute distress HEENT: normocephalic, atraumatic. Mucous membranes moist. EOMI, PERRLA, Respiratory: clear to ascultation bilaterally. No rales/rhonic/wheezes. Cardiovascular: Regular rate and rhythm, normal S1-S2 upon ascultation. Abdomen: Soft, round, no pulsatile masses, nondistended mid abdominal tender. Extremities: No cyanosis, clubbing, or edema present. Pulses are palpable 2/2. Active ROM to all four extremities. Neuro: Alert and orientated x 4. PERRLA. Cranial nerves 2-12 intact without focal deficit. Skin: Warm, dry, and intact, without rash, erythema, or lesion. Psych: pleasant, cooperative, normal speech, normal affect, no hallucinations, no dysarthia Discharge Plan Discharge Attending physician on discharge: Zeb Lopez Discharging Clinician: Zeb oLpez Patient Disposition: Home Activity: as tolerated Diet: as tolerated Patient Instructions: Antibiotic Form Patient Language: Cymro Stand Alone Forms: General Discharge Information Follow-up/Referrals: [facility] [Provider Group] Discharge Medications: Continued thiamine HCl (vitamin B1) [Vitamin B-1] 100 mg Tablet 100 mg PO QAM Qty: 30 0RF pantoprazole 40 mg Tablet,Delayed Release (Dr/Ec) 40 mg PO QAM Qty: 30 0RF Discontinued hydrocodone-acetaminophen 5-325 mg Tablet 1 tablet PO Q6H PRN (Reason: Pain Rated 4-10) Qty: 10 0RF Rx Instructions: has 2 pills left Date of admission: 09/18/24 09:51 Primary Care Provider: UNKNOWN,DOCTOR Admitting Provider: Joel Rivero Attending physician on admission: Joel Rivero Condition: Stable Quality VTE Prophylaxis VTE prophylaxis: mechanical ordered
== END 2024-09-23 12:20 | disposition home or self-care (01) | DRG 282 ==
LOC: ANHED 08:07 → ANH2MED 10:32
PROVIDERS: Internal Medicine; Nurse Practitioner Gerontology; Admitting Provider Family Medicine; Emergency Provider Emergency Medicine; Visit Provider Internal Medicine
DX: K85.20 Alcohol induced acute pancreatitis without necrosis or infection (principal); K86.1 Other chronic pancreatitis; F10.10 Alcohol abuse, uncomplicated; F17.290 Nicotine dependence, other tobacco product, uncomplicated
CPT/HCPCS: 36415; 74177; 80053; 80061; 81001; 82948; 83690; 83735; 84100; 85025; 85055; 96374; 96375; 99285; A9270; J1171; J1200; J1650; J1885; J2270; J2405; J2765; J3411; J7120; Q9967

== ENCOUNTER 2024-10-15 09:56 | Inpatient (IN) | payer OTHER, SELFPAY ==
[2024-10-15] VITALS (8 sets, daily range): BP systolic 128–170; BP diastolic 72–99; PULSE 78–95; RESP 16–20; TEMP 36.2–36.6; O2SAT 98–100; BMI 24.0
--- NOTE | ~2024-10-15 | CT_ITS ---
CT abdomen pelvis w con Ordering provider: Napoleon Naranjo MD History: 28 years Male with . epigastric pain . Comparison: September 18, 2024 Technique: CT abdomen and pelvis with IV and without oral contrast. Automated exposure control and it erative reconstruction technique were employed. The dose-length product was 373.45 mGy-cm. 100 mL Omn ipaque 350 was given IV. Findings: VISUALIZED LOWER CHEST: Normal. UPPER ABDOMINAL ORGANS: Liver: Fat infiltration. Focal fat infiltration seen around the ankle level of fissure and gallbladde r Gallbladder: Normal. Spleen: Normal. Calcified granulomas. Stomach/duodenum: Normal. Pancreas: Peripancreatic fat stranding is seen with fluid seen anterior to the Gerota fascia suggesti ve of pancreatitis. No abscess formation seen. Fat stranding is also seen surrounding the second part of the duodenum and around the stomach. Adrenals: Normal. Kidneys: Normal. PELVIC ORGANS: The bladder is normal. BOWEL AND MESENTERY: Colon: No evidence of diverticulitis. Normal appendix. Small Bowel: Normal. No obstruction. Peritoneum/mesentery: No free air or free fluid. No mesenteric lymphadenopathy. RETROPERITONEUM: Normal aorta. No retroperitoneal lymphadenopathy. MUSCULOSKELETAL: Superficial soft tissues: Fat containing umbilical hernia. Otherwise, The superficial soft tissues ar e normal. Bones: Normal spine. Postoperative changes in the left femur. IMPRESSION: 1. Acute pancreatitis with surrounding fat stranding. No abscess formation or collection seen. Follo w-up advised. Minimal change from previous examination seen. 2. No evidence of appendicitis, diverticulitis or intestinal obstruction. 3. Fat infiltration of the liver. Reviewed, dictated and finalized at location A. IMPRESSION: 1. Acute pancreatitis with surrounding fat stranding. No abscess formation or collection seen. Follow-up advised. Minimal change from previous examination se en. 2. No evidence of appendicitis, diverticulitis or intestinal obstruction. 3. Fat infiltration of the liver.
--- OUTSIDE RECORDS SUMMARY | 2024-10-15 09:58 | XMS_ITS | Clinical Summary ---
Author Organization [facility] Address [address] [place] [address] Care Team Providers Care Campus Rep Name Role Phone Christine George STEFAN Primary Care Provider [phone] Allergies No known active allergies Medications Cariprazine HCl (VRAYLAR) 1.5 MG CapIndications:B ipolar 1 disorder ([facility]) Take 1.5 mg by mouth daily. 30 capsule 11 05/18/2019 Active Active Problems Problem Noted Date Diagnosed Date Family history of diabetes mellitus 10/25/2019 Essential hypertension 10/25/2019 History of narcotic addiction ([facility]) 05/04/2019 Anxiety 05/02/2019 Bipolar 1 disorder ([facility]) 05/02/2019 Depression 05/02/2019 Paranoia ([facility]) 05/02/2019 Hearing voices 05/02/2019 Antifreeze poisoning, intent ional self-harm, subsequent encounter 05/02/2019 Drug addiction in remission ([facility]) Hx of extrinsic asthma 05/02/2019 Adult [...] on file 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
--- OUTSIDE RECORDS SUMMARY | 2024-10-15 09:58 | XMS_ITS ---
Author Organization [facility] Address [address] [place] [address] Care Team Providers Care Stem Assembler Name Role Phone Erick Angel Primary Care Provider [facility], [facility] Unavailable U navailable Patricia Hartmann Unavailable [phone] REASON FOR VISIT Last seen 08/16, transfer from [facility] Social History Sex Assigned At : Social History Observation Description Sex Assigned At Male Encounters Encounter Location Date Provider Diagnosis [address] [place] [address] 02/15/2024 Patricia Hartmann Plan Of Treatment No Information Progress Notes * Pancho ROBBINS JDOB: [birth year] (28 yo M)Acc No.[id number]:02/15/2024 UNLOCKED PROGRESS NOTE Patient: Roxana CORTES Pancho Patterson Provider: Roxana Hartmann, DNP, ADVANCED ANALYTICS ASSOCIATE, PMHNP- :1995 A ge:28 Y S ex:Male Date:02/15/2024 Address:[address] [place] [id number] Pcp:Erick Angel 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 Last seen 08/16, transfer from [facility]. * Medical History: Objective: * Vitals: Assessment: Plan: * Treatment: * * Electronic signature of Iris Oliveros [id number] on 10/15/2024 at 09:58 AM CDT Sign off status: Pending * Provider: Roxana Hartmann DNP, ADVANCED ANALYTICS ASSOCIATE, PMHNP-BC Date: 0 02/15/2024 Generated for Printing/Faxing/eTransmitting on: 0 10/15/2024 09:58 AM CDT
--- OUTSIDE RECORDS SUMMARY | 2024-10-15 09:58 | XMS_ITS | Patient Health Record ---
Author Organization [facility] Address [address] [place] [address] Care Team Providers Care Shadow Graph Weight Operator Name Role Phone Erick Angel Primary Care Provider Benkyo Player, [facility] Unavailable U navailable Forrestnuriamercedez Patricia Unavailable [phone] Allergies No Known Allergies Reason For Referral [...] 9 25 MG NA Cheng Jo Md [id number] [place], [place] NA 0 [place] 1 [id number] 06/15/2022 06/15/2022 ACETAMINOPHEN 325 MG / HYDROcodone BITARTRATE 5 MG ORAL TABLET 10.0 2 5.0 M PRESCRIPTION # FILLED WRITTEN DRUG LABEL QTY DAYS STRENGTH MME [facility] REFILL NO. REFILLS STATE 10/06/2022 10/06/2022 chlordiazePOXIDE HCL 36.0 9 25 MG NA Cheng Jo Md [id number] [place], [place] NA 0 [place] 1 [id number] 06/15/2022 06/15/2022 HYDROcodone BITARTRATE-ACETAMINOPHEN 10.0 2 325 MG-5 MG 25 Shresth PRESCRIPTION # FILLED WRITTEN DRUG LABEL QTY DAYS STRENGTH MME PRESCRIBER PHARMAC[facility] REFILL NO. REFILLS STATE 10/06/2022 10/06/2022 chlordiazePOXIDE HCL 36.0 9 25 MG NA Cheng Jo Md [id number] [place], [place] NA 0 [place] 1 [id number] 06/15/2022 06/15/2022 HYDROcodone BITARTRATE-ACETAMINOPHEN 10.0 2 325 MG-5 MG 25 Shresth Reviewed PDMP Reviewed PDMP Problems Problem Type SNOMED Code ICD Code Onset Dates Problem Status W/U Status Risk Notes Problem Depression (506807961) Depression (F32.9) Active confirmed Problem Anxiety (98431289) Anxiety (F41.9) Active confirmed Encounters Encounter Location Date Provider Diagnosis [address] [place] [address] 02/15/2024 Erick Angel Plan Of Treatment No Information Insurance Providers Payer Name Payer Address Payer Phone Subscriber Number Group Number Insured Name Patient Relationship to Insured Coverage Start Date Coverage End Date [address] [phone] [id number] NapoleonAlexis stepheneal Self - patient is the insured 3 [employer] [address] [place] [address] [id number] Alexis Bendereal Self - patient is the insured 3 Medical (General) History Medical History History ICD Code Substance use disorder Surgical History Surgery Date(Month/Year) Left femur/hermann Hospitalization History Reason Date([facility]
--- OUTSIDE RECORDS SUMMARY | 2024-10-15 09:58 | XMS_ITS | CONTINUITY OF CARE DOCUMENT ---
Author Name nealfemi sapphire Address Unknown Organization [facility] Address [address] [place] [address] Phone [phone] Care Team Providers Care Senior Loan Processor Name Role Phone Isiah SHEPHERD, Renee Unavailable [phone] ZAFAR SHEPHERD, ARABELLA Balderas Unavailable ZAFAR SHEPHERD, ARABELLA Balderas Unavailable [phone] INSURANCE PROVIDERS Payer name Policy type / Coverage type [place] red [employer] party ID [employer] Medicaid [id number]
--- OUTSIDE RECORDS SUMMARY | 2024-10-15 09:59 | XMS_ITS ---
Author Organization [facility] Address [address] [place] [address] Care Team Providers Care Pearler Name Role Phone Erick Angel Primary Care Provider [phone] [facility], [facility] Unavailable U navailable Sydney Child Unavailable [phone] REASON FOR VISIT r/s from 09/27--follow up [...] Male Encounters Encounter Location Date Provider Diagnosis [facility] [address] [place] [address] 10/01/2023 Sydney Child Plan Of Treatment No Information Progress Notes * Pancho ROBBINS JDOB: [birth year] (28 yo M)Acc No.[id number]:10/01/2023 UNLOCKED PROGRESS NOTE Patient: Pancho MANCILLA Provider: Marga Child, MSN, BRAND AMBASSADOR PROMOTIONAL MODEL-BC, PMHNP-BC :1995 A ge:27 Y S ex:Male Date:10/01/2023 Address:[address] [place], [place] [id number] Pcp:Erick Angel Subjective: * Chief Complaints: * [...] * Electronic signature of Sydney Child , [id number] on 10/15/2024 at 09:58 AM CDT Sign off status: Pending * Provider: Marga Child, MSN, BRAND AMBASSADOR PROMOTIONAL MODEL-BC, PMHNP-BC Date: 0 10/01/2023 Generated for Carlos mcallister/Telly/Aprilitting on: 0 10/15/2024 09:58 AM CDT
--- NOTE | 2024-10-15 12:37 | ECG_ITS ---
Test Date: 2024-10-15 12:41:21 Measurements Intervals Harvey Rate: 90 P: 71 ID: 165 QRS: 86 QRSD: 91 T: 13 QT: 343 QTc: 421 Interpretive Statements SINUS RHYTHM NONSPECIFIC T-WAVE ABNORMALITY ABNORMAL ECG Electronically Signed On 10-16-2024 08:06:39 CDT by Storm Naranjo M.D.
--- NOTE | 2024-10-15 12:38 | PC.NURSE ---
Pt to the intake desk and states he is having sharp chest pains Pt taken into triage. vitals taken and EKG done
--- OUTSIDE RECORDS SUMMARY | 2024-10-15 13:44 | XMS_ITS | CONTINUITY OF CARE DOCUMENT ---
Author Name nealfemi sapphire Address Unknown Organization [facility] Address [address] [place] [address] Phone [phone] Care Team Providers Care Planning Official Name Role Phone Isiah SHEPHERD, Renee Unavailable ZAFAR SHEPHERD, ARABELLA Balderas Unavailable [phone] ZAFAR SHEPHERD, ARABELLA Balderas Unavailable [phone] INSURANCE PROVIDERS Payer name Policy type / Coverage type [place] red republican ID [employer] Medicaid [id number]
--- OUTSIDE RECORDS SUMMARY | 2024-10-15 13:44 | XMS_ITS | Clinical Summary ---
Author Organization [facility] Address [address] [place] [address] Care Team Providers Care Supervisor Frame Sample And Pattern Name Role Phone Christine George STEFAN Primary Care Provider [phone] Allergies No known active allergies Medications Cariprazine HCl (VRAYLAR) 1.5 MG CapIndications:B ipolar 1 disorder ([facility]) Take 1.5 mg by mouth daily. 30 capsule 11 05/18/2019 Active Active Problems Problem Noted Date Diagnosed Date Family history of diabetes mellitus 10/25/2019 Essential hypertension 10/25/2019 History of narcotic addiction ([facility]) 05/04/2019 Anxiety 05/02/2019 Bipolar 1 disorder ([facility]) 05/02/2019 Depression 05/02/2019 Paranoia ([facility]) 05/02/2019 Hearing voices 05/02/2019 Antifreeze poisoning, intent ional self-harm, subsequent encounter 05/02/2019 Drug addiction in remission ([facility]) Hx of extrinsic asthma 05/02/2019 Adult BMI [...] on file 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
--- NOTE | 2024-10-15 14:27 | ED_ITS ---
HPI - General Adult General Chief complaint: Abdominal Pain Stated complaint: my pancreatitis Time Seen by Provider: 10/15/24 13:22 History of Present Illness HPI narrative: Patient is a 28-year-old male with history of pancreatitis who presents ER with epigastric pain. Ongoing for 2 days. Reports he has been drinking alcohol. No fevers or chills or sweats. He has been having. No diarrhea or constipation. No alleviating factors. Related Data Allergies Allergy/AdvReac Type Severity Reaction Status Date / Time No Known Allergies Allergy Verified 10/15/24 13:41 Review of Systems 2 Review of Systems: All systems reviewed & are unremarkable except as noted in HPI and below Constitutional: Constitutional: Reports no additional constitutional complaints ENT: Reports system reviewed and no additional complaints, except as documented Cardiovascular: Cardiovascular: Reports no additional cardiovascular complaints Respiratory: Respiratory: Reports no additional respiratory complaints Gastrointestinal: Gastrointestinal: Reports no additional gastrointestinal complaints PMFSH Past Medical History Medical History Alcohol abuse Pancreatitis Surgical History Surgical History History of open reduction and internal fixation (ORIF) procedure Left femur. Family History Family History Mother Cerebrovascular accident Hypertension Social History Social History Social History: Surrogate medical decision maker: Ember Jordan, friend. Code status: Full code. Smoking status: Current every day smoker Tobacco type: e-cigarettes/vaping Alcohol intake: current Drinks per week: 6 Alcohol use details: A 5th of alcohol every 2 days. Substance use: current Substance use type: marijuana Other substance usage details: 08/2024 Last use: 02/22/24 Do You Feel Safe in your Home?: Yes Lack of Transportation: No Lack of Food: Never True Current Housing: I Have Housing Concerned About Future Housing: No Difficulty Paying Gas/Electric Bills: No Difficulty Paying for Meds: No Currently Unemployed: YES Education: Decline to Answer Difficulty w/ Childcare or Family Care: No Spiritual care concerns: No Exam 2 Narrative: GENERAL: Uncomfortable-appearing, well-nourished, and in no acute distress. HEAD: Normocephalic, atraumatic. ENT: Mucous membranes moist. CHEST: Clear to auscultation. No respiratory distress. HEART: Regular rate and rhythm. Normal peripheral pulses. ABDOMEN: Soft, epigastric pain with guarding, nondistended. EXTREMITIES: Normal range of motion. No edema. SKIN: Warm, dry, no rash. NEURO: Alert and oriented x3. PSYCH: Normal mood and affect. Course Course Emergency Course: Persistent pain, has had morphine 4 mg and Dilaudid [address] does not show any pancreatic abscess. Admit to hospitalist service. Vital Signs Vital signs: Vital Signs Temperature 97.9 F 10/15/24 10:25 Pulse Rate 88 10/15/24 10:25 Respiratory Rate 20 10/15/24 10:25 Blood Pressure 146/99 H 10/15/24 10:25 Pulse Oximetry 98 10/15/24 10:25 Oxygen Delivery Room Air 10/15/24 10:25 Temperature 97.9 F 10/15/24 10:25 Pulse Rate 83 10/15/24 17:26 Respiratory Rate 17 10/15/24 17:26 Blood Pressure 128/72 10/15/24 17:26 Pulse Oximetry 98 10/15/24 17:26 Oxygen Delivery Room Air 10/15/24 10:25 Medical Decision Making Vital Signs Vital Signs: Vital Signs Temperature 97.9 F 10/15/24 10:25 Pulse Rate 88 10/15/24 10:25 Respiratory Rate 20 10/15/24 10:25 Blood Pressure 146/99 H 10/15/24 10:25 Pulse Oximetry 98 10/15/24 10:25 Oxygen Delivery Room Air 10/15/24 10:25 Temperature 97.9 F 10/15/24 10:25 Pulse Rate 83 10/15/24 17:26 Respiratory Rate 17 10/15/24 17:26 Blood Pressure 128/72 10/15/24 17:26 Pulse Oximetry 98 10/15/24 17:26 Oxygen Delivery Room Air 10/15/24 10:25 Lab Data 10/15/24 14:39 10/15/24 14:39 Labs: Lab Results 10/15/24 Range/Units 14:39 WBC 16.0 H (4.5-10.0) K/mm3 RBC 5.10 (4.6-6.20) M/mm3 Hgb 16.0 (14.0-18.0) g/dL Hct 46.1 (42.0-52.0) % MCV 90.4 (80-100) fl MCH 31.4 (26-34) pg MCHC 34.7 (32-36) g/dl RDW 13.9 (11.5-14.5) % Plt Count 198 (150-375) k/mm3 MPV 11.7 H (7.4-10.4) fl Immature Gran % (Auto) 0.7 H (0-0.5) % Neut % (Auto) 84.9 H (45.5-73.1) % Lymph % (Auto) 7.8 L (18.3-44.2) % [place] % (Auto) 5.9 (2.6-8.5) % Eos % (Auto) 0.3 (0-4.4) % Baso % (Auto) 0.4 (0.2-1.2) % Lymph # (Auto) 1.24 (0.9-3.2) K/mm3 [place] # (Auto) 0.9 H (0.1-0.6) K/mm3 Eos # (Auto) 0.1 (0-0.3) K/mm3 Baso # (Auto) 0.1 (0.0-0.1) K/mm3 Abs Immat Gran (auto) 0.11 H (0.00-0.031) K/mm3 Absolute Neuts (auto) 13.6 H (1.3-6.7) K/mm3 Absolute Nucleated RBC 0.000 (0.0-0.012) K/mm3 Nucleated RBC % 0.0 (0.0-0.2) % Sodium 140 (137-145) mmol/L Potassium 3.5 (3.4-5.0) mmol/L Chloride 102 (98-107) mmol/L Carbon Dioxide 25 (22-30) mmol/L Anion Gap 13 H (4-12) mmol/L BUN 6 L (9-20) mg/dL Creatinine 0.65 L (0.7-1.3) mg/dL Estim Creat Clear Calc 156 ml/min Estimated GFR > 60 (59 - ) Glucose 128 H (65-110) mg/dL Calcium 8.7 (8.4-10.2) mg/dL Total Bilirubin 0.8 (0.2-1.3) mg/dL AST 46 (17-59) U/L ALT 42 (6-50) U/L Alkaline Phosphatase 107 (38-126) U/L Total Protein 8.0 (6.3-8.2) g/dL Albumin 4.7 (3.5-5.1) g/dL Lipase 2138 H (23-300) U/L Imaging Data Radiologist's impression: ITS Impressions Abdomen/Pelvis CT 10/15/24 16:42 IMPRESSION: 1. Acute pancreatitis with surrounding fat stranding. No abscess formation or collection seen. Follow-up advised. Minimal change from previous examination seen. 2. No evidence of appendicitis, diverticulitis or intestinal obstruction. 3. Fat infiltration of the liver. Discharge Plan Discharge Clinical Impression: Pancreatitis Patient Disposition: Still a Patient Condition: Stable Instructions: Antibiotic Form Patient Language: Macanese Prescriptions: No Action thiamine HCl (vitamin B1) [Vitamin B-1] 100 mg Tablet 100 mg PO QAM Qty: 30 0RF pantoprazole 40 mg Tablet,Delayed Release (Dr/Ec) 40 mg PO QAM Qty: 30 0RF Follow-up/Referrals: UNKNOWN,DOCTOR [Primary Care Provider] -
[2024-10-15] MEDS: ONDANSETRON INJ 4 MG/2 ML VIAL IV PUSH ×2 (14:29→20:12)
[2024-10-15] MEDS: SODIUM CHLORIDE 0.9% IV 1,000 ML 999 ML IV CONT (14:29)
[2024-10-15] MEDS: MORPHINE SULFATE (*CRX) 4 MG/ML INJ IV PUSH (14:30)
[2024-10-15] MEDS: FAMOTIDINE 20 MG/2 ML VIAL IV PUSH (14:30)
[2024-10-15 14:46] LABS: Basophils Absolute Auto 0.1 K/mm3 (0.0-0.1); Basophils Percent Auto 0.4 % (0.2-1.2); Eosinophils Absolute Auto 0.1 K/mm3 (0-0.3); Eosinophils Percent Auto 0.3 % (0-4.4); Hematocrit 46.1 % (42.0-52.0); Immature Granulocyte Absolute 0.11 K/mm3 (0.00-0.031); Immature Granulocyte Percent A 0.7 % (0-0.5); Lymphocytes Absolute Auto 1.24 K/mm3 (0.9-3.2); Lymphocytes Percent Auto 7.8 % (18.3-44.2); Mean Corpuscular HGB Conc 34.7 g/dl (32-36); Mean Corpuscular Hemoglobin 31.4 pg (26-34); Mean Corpuscular Volume 90.4 fl (80-100); Mean Platelet Volume 11.7 fl (7.4-10.4); Monocytes Absolute Auto 0.9 K/mm3 (0.1-0.6); Monocytes Percent Auto 5.9 % (2.6-8.5); Neutrophils Absolute Auto 13.6 K/mm3 (1.3-6.7); Neutrophils Percent Auto 84.9 % (45.5-73.1); Platelet Count Result 198 k/mm3 (150-375); Red Cell Distribution Width 13.9 % (11.5-14.5)
[2024-10-15 15:04] LABS: Alanine Aminotransferase 42 U/L (6-50); Albumin Level 4.7 g/dL (3.5-5.1); Alkaline Phosphatase 107 U/L (38-126); Anion Gap 13 mmol/L (4-12); Aspartate Amino Transferase 46 U/L (17-59); Bilirubin,Total 0.8 mg/dL (0.2-1.3); Blood Urea Nitrogen 6 mg/dL (9-20); Calcium 8.7 mg/dL (8.4-10.2); Carbon Dioxide 25 mmol/L (22-30); Chloride 102 mmol/L (98-107); Estimated CRCL calculation 156 ml/min; Estimated Glomerular Filt Rate > 60; Glucose 128 mg/dL (65-110); Potassium 3.5 mmol/L (3.4-5.0); Sodium 140 mmol/L (137-145)
[2024-10-15 15:18] LABS: Lipase 2138 U/L (23-300)
[2024-10-15] MEDS: HYDROmorphone HCL INJ (*CRX) 2 MG/ML VIAL 1 MG IV PUSH ×3 (17:23→23:13)
--- NOTE | 2024-10-15 17:25 | P.HP_ITS ---
H&P: HPI History of Present Illness Date/Time: 10/15/24 17:25 Chief Complaint: Acute abdominal pain Narrative: 28-year-old male with history of alcohol abuse and pancreatitis presents hospital with abdominal pain. Patient is well-known to the hospitalist service. Patient states that his abdomen started hurting about 2 days ago. But he does admit to drinking yesterday causing acute pain. Patient denies vomiting. Patient denies change in medical history since leaving the hospital. Patient has leukocytosis at 16.0, anion gap of 13, BUN of 6, creatinine of 0.65, lipase of 2138, abdominal CT showing acute pancreatitis with surrounding fat stranding. No abscess or fluid collection seen. Minimal changes from last CT exam on 09/18/2024. Review of Systems Review of Systems: 12 systems were reviewed and are negativ e except for as per HPI. [facility] Past Medical History Medical History Alcohol abuse Pancreatitis Surgical History Surgical History History of open reduction and internal fixation (ORIF) procedure Left femur. Family History Family History Mother Cerebrovascular accident Hypertension Social History Social History Social History: Surrogate medical decision maker: Ember Jordan, friend. Code status: Full code. Smoking status: Current every day smoker Alcohol intake: current Drinks per week: 6 Alcohol use details: A 5th of alcohol every 2 days. Substance use: current Substance use type: marijuana Other substance usage details: 08/2024 Last use: 02/22/24 Do You Feel Safe in your Home?: Yes Lack of Transportation: No Lack of Food: Never True Current Housing: I Have Housing Concerned About Future Housing: No Difficulty Paying Gas/Electric Bills: No Difficulty Paying for Meds: No Currently Unemployed: YES Education: Decline to Answer Difficulty w/ Childcare or Family Care: No Spiritual care concerns: No Meds Home Medications and Allergies Home Medications ?Medication ?Instructions ?Recorded ?Confirmed ?Type No Home Medications 10/15/24 10/15/24 History Allergies Allergy/AdvReac Type Severity Reaction Status Date / Time No Known Allergies Allergy Verified 10/15/24 13:41 Vital Signs Vital Signs - 24 hr 10/15/24 10:25 10/15/24 12:40 10/15/24 14:38 Temperature 97.9 F Pulse Rate 88 95 83 Respiratory Rate 20 18 17 Blood Pressure 146/99 H 142/98 H 146/80 H Pulse Oximetry 98 100 100 Oxygen Delivery Room Air Exam Narrative: General: well appearing, appears stated age. HEENT: normocephalic, atraumatic. Mucous membranes moist. EOMI, PERRLA, bilateral sclera anicteric, no conjunctival injection. Neck supple without JVD, lymphadenopathy, or bruit. Respiratory: clear to ascultation bilaterally. No rales/rhonic/wheezes. Cardiovascular: Regular rate and rhythm, normal S1-S2 upon ascultation. No murmurs, rubs, or clicks. PMI is nondisplaced, capillary refill less than 3 second. Abdomen: Soft, round, no pulsatile masses, nondistended and nontender. No rebound, no guarding. No CVA tenderness, no hepatosplenomegaly. Bowel sounds present to all four quadrants. No high pitch or tinkling sounds, resonant to percussion. Extremities: No cyanosis, clubbing, or edema present. Pulses are palpable 2/2. Active ROM to all four extremities. Neuro: Alert and orientated x 4. PERRLA. Cranial nerves 2-12 intact without focal deficit. Skin: Warm, dry, and intact, without rash, erythema, or lesion. Psych: pleasant, cooperative, normal speech, normal affect, no hallucinations, no dysarthia H&P: Results Labs Labs: Short CBC 10/15/24 Range/Units 14:39 WBC 16.0 H (4.5-10.0) K/mm3 Hgb 16.0 (14.0-18.0) g/dL Hct 46.1 (42.0-52.0) % Plt Count 198 (150-375) k/mm3 BMP 10/15/24 14:39 Sodium 140 Potassium 3.5 Chloride 102 Carbon Dioxide 25 BUN 6 L Creatinine 0.65 L Glucose 128 H Calcium 8.7 Liver Function 10/15/24 Range/Units 14:39 Total Bilirubin 0.8 (0.2-1.3) mg/dL AST 46 (17-59) U/L ALT 42 (6-50) U/L Alkaline Phosphatase 107 (38-126) U/L Albumin 4.7 (3.5-5.1) g/dL Assessment and Plan Assessment and plan (1) Acute pancreatitis: Code(s): K85.90 - Acute pancreatitis without necrosis or infection, unspecified Status: Acute Assessment and Plan: LR bolus followed by LR at 200 Accounts Payables Clerk.o. lucila for water and ice chips Pain management Check lipid panel A.m. labs with lipase (2) Acute pain: Code(s): R52 - Pain, unspecified Status: Acute Assessment and Plan: IV pain medicine (3) Alcohol dependence: Code(s): F10.20 - Alcohol dependence, uncomplicated Status: Acute Assessment and Plan: Monitor for withdrawals Quality VTE Prophylaxis VTE prophylaxis: mechanical ordered and pharmacologic ordered Hospitalist [facility] Advance Care Plan I have confirmed that the patient's Advanced Care Plan is present, code status is documented, or surrogate decision maker is listed in patient medical record.: Yes Medication Reconciliation I have utilized all available resources to obtain, update and review the patients current medications (includes all prescriptions, OTC, herbals, cannabis, and nutritional supplements).: Yes
--- NOTE | 2024-10-15 18:38 | ADMGEN ---
This patient, Alonso Bender, was admitted to [facility] Surg Room 331-01. Patient/family oriented to hospital policies and general routines including ID bracelet, bed and alarms, visiting hours, pain management, procedures, bathroom and other care routines, personal items, smoking policy, room service/diet, and visiting hours. Information on how to activate the Rapid Response Team has been discussed. Patient/Family are encouraged to report perceived risks to care and to ask questions if they do not understand what they are told or what they should do.
[2024-10-15] MEDS: LACTATED RINGERS 1,000 ML 999 ML IV CONT (18:57)
[2024-10-15] MEDS: LACTATED RINGERS 1,000 ML 200 ML IV CONT (20:05)
[2024-10-15] MEDS: KETOROLAC 15 MG/ML VIAL (*BKC) IV PUSH (20:29)
--- OUTSIDE RECORDS SUMMARY | 2024-10-15 23:22 | XMS_ITS | Patient Health Record ---
Author Organization [facility] Address [address] [place] [address] Care Team Providers Care Asphalt Tile Floor Layer Name Role Phone Erick Angel Primary Care Provider [place], [facility] Unavailable U navailable Forrestnuriamercedez Patricia Unavailable [phone] Allergies No Known Allergies Reason For Referral [...] 9 25 MG NA Cheng Jo Md [id number] [facility], [place] NA 0 [place] 1 [id number] 06/15/2022 06/15/2022 ACETAMINOPHEN 325 MG / HYDROcodone BITARTRATE 5 MG ORAL TABLET 10.0 2 5.0 M PRESCRIPTION # FILLED WRITTEN DRUG LABEL QTY DAYS STRENGTH MME [facility] REFILL NO. REFILLS STATE 10/06/2022 10/06/2022 chlordiazePOXIDE HCL 36.0 9 25 MG NA Cheng Jo Md [id number] [facility], [place] NA 0 [place] 1 [id number] 06/15/2022 06/15/2022 HYDROcodone BITARTRATE-ACETAMINOPHEN 10.0 2 325 MG-5 MG 25 Shresth PRESCRIPTION # FILLED WRITTEN DRUG LABEL QTY DAYS STRENGTH MME [facility] REFILL NO. REFILLS STATE 10/06/2022 10/06/2022 chlordiazePOXIDE HCL 36.0 9 25 MG NA Cheng Jo Md [id number] [facility], [place] NA 0 [place] 1 [id number] 06/15/2022 06/15/2022 HYDROcodone BITARTRATE-ACETAMINOPHEN 10.0 2 325 MG-5 MG 25 Shresth Reviewed PDMP Reviewed PDMP Problems Problem Type SNOMED Code ICD Code Onset Dates Problem Status W/U Status Risk Notes Problem Depression (096132852) Depression (F32.9) Active confirmed Problem Anxiety (97254614) Anxiety (F41.9) Active confirmed Encounters Encounter Location Date Provider Diagnosis [address] [place] [address] 02/15/2024 Erick Angel Plan Of Treatment No Information Insurance Providers Payer Name Payer Address Payer Phone Subscriber Number Group Number Insured Name Patient Relationship to Insured Coverage Start Date Coverage End Date [address] [phone] [id number] NapoleonAlexis stepheneal Self - patient is the insured 3 [employer] [address] [place] [address] [id number] Alexis Bendereal Self - patient is the insured 3 Medical (General) History Medical History History ICD Code Substance use disorder Surgical History Surgery Date(Month/Year) Left femur/hermann Hospitalization History Reason Date(Month/Year) [facility] 2022
--- OUTSIDE RECORDS SUMMARY | 2024-10-15 23:22 | XMS_ITS ---
Author Organization [facility] Address [address] [place] [address] Care Team Providers Care Human Resources Operations Manager Name Role Phone Erick Angel Primary Care Provider [phone] [facility], [facility] Unavailable U navailable Patricia Hartmann Unavailable [phone] REASON FOR VISIT Last seen 08/16, transfer from [facility] Social History Sex Assigned At : Social History Observation Description Sex Assigned At Male Encounters Encounter Location Date Provider Diagnosis [address] [place] [address] 02/15/2024 Patricia Hartmann Plan Of Treatment No Information Progress Notes * Pancho ROBBINS JDOB: [birth year] (28 yo M)Acc No.[id number]:02/15/2024 UNLOCKED PROGRESS NOTE Patient: Roxana CORTES Pancho Patterson Provider: Roxana Hartmann, DNP, BANQUET CAPTAIN, PMHNP- :1995 A ge:28 Y S ex:Male Date:02/15/2024 Address:[address] [place] [id number] Pcp:Erick Angel Check In:08:22 AM 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 Last seen 08/16, transfer from [facility]. * Medical History: Objective: * Vitals: Assessment: Plan: * Treatment: * * Electronic signature of Iris Oliveros [id number] on 10/15/2024 at 11:22 PM CDT Sign off status: Pending * Provider: Roxana Hartmann DNP, BANQUET CAPTAIN, PMHNP-BC Date: 0 02/15/2024 Generated for Printing/Faxing/eTransmitting on: 0 10/15/2024 11:22 PM CDT
--- OUTSIDE RECORDS SUMMARY | 2024-10-15 23:22 | XMS_ITS | Clinical Summary ---
Author Organization [facility] Address [address] [place] [address] Care Team Providers Care Blending Machine Operator Name Role Phone Christine George STEFAN Primary Care Provider [phone] Allergies No known active allergies Medications Cariprazine HCl (VRAYLAR) 1.5 MG CapIndications:B ipolar 1 disorder ([facility]) Take 1.5 mg by mouth daily. 30 capsule 11 05/18/2019 Active Active Problems Problem Noted Date Diagnosed Date Family history of diabetes mellitus 10/25/2019 Essential hypertension 10/25/2019 History of narcotic addiction ([facility]) 05/04/2019 Anxiety 05/02/2019 Bipolar 1 disorder ([facility]) 05/02/2019 Depression 05/02/2019 Paranoia ([facility]) 05/02/2019 Hearing voices 05/02/2019 Antifreeze poisoning, intent ional self-harm, subsequent encounter 05/02/2019 Drug addiction in remission ([facility]) Hx of extrinsic asthma 05/02/2019 Adult BMI [...] on file Legal Sex Male 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
--- OUTSIDE RECORDS SUMMARY | 2024-10-15 23:22 | XMS_ITS | CONTINUITY OF CARE DOCUMENT ---
Author Name nealfemi sapphire Address Unknown Organization [facility] Address [address] [place] [address] Phone [phone] Care Team Providers Care Jewel Hole Driller Name Role Phone Isiah SHEPHERD, Renee Unavailable [phone] ZAFAR SHEPHERD, ARABELLA Balderas Unavailable [phone] ZAFAR SHEPHERD, ARABELLA Balderas Unavailable [phone] INSURANCE PROVIDERS Payer name Policy type / Coverage type [employer] party ID [employer] [id number]
--- OUTSIDE RECORDS SUMMARY | 2024-10-15 23:23 | XMS_ITS ---
Author Organization [facility] Address [address] [place] [address] Care Team Providers Care Sewer Line Photo Inspector Name Role Phone Erick Angel Primary Care Provider [phone] [facility], [facility] Unavailable U navailable Sydney Child Unavailable [phone] REASON FOR VISIT r/s from 09/27--follow up [...] Male Encounters Encounter Location Date Provider Diagnosis [facility] [address] [place] [address] 10/01/2023 Sydney Child Plan Of Treatment No Information Progress Notes * Pancho ROBBINS JDOB: [birth year] (28 yo M)Acc No.[id number]:10/01/2023 UNLOCKED PROGRESS NOTE Patient: Pancho MANCILLA Provider: Marga Child, MSN, PROJECT MANAGER FINANCE-BC, PMHNP-BC :1995 A ge:27 Y S ex:Male Date:10/01/2023 Address:[address] [place], [place] [id number] Pcp:Erick Angel Subjective: * Chief Complaints: * [...] * Electronic signature of Sydney Child , [id number] on 10/15/2024 at 11:22 PM CDT Sign off status: Pending * Provider: Marga Child, MSN, PROJECT MANAGER FINANCE-BC, PMHNP-BC Date: 0 10/01/2023 Generated for Carlos mcallister/Telly/Aprilitting on: 0 10/15/2024 11:22 PM CDT
[2024-10-16] VITALS (9 sets, daily range): BP systolic 138–163; BP diastolic 69–97; PULSE 81–104; RESP 18; TEMP 36.6–36.9; O2SAT 96–100
[2024-10-16] MEDS: LACTATED RINGERS 1,000 ML 999 ML IV CONT (01:18)
[2024-10-16] MEDS: HYDROmorphone HCL INJ (*CRX) 2 MG/ML VIAL 1 MG IV PUSH ×7 (01:38→21:47)
[2024-10-16] MEDS: KETOROLAC 15 MG/ML VIAL (*BKC) IV PUSH ×2 (02:35→08:12)
[2024-10-16] MEDS: LACTATED RINGERS 1,000 ML 200 ML IV CONT ×5 (02:35→21:57)
[2024-10-16] MEDS: ONDANSETRON INJ 4 MG/2 ML VIAL IV PUSH ×2 (02:40→09:03)
[2024-10-16 06:35] LABS: Alanine Aminotransferase 28 U/L (6-50); Albumin Level 3.6 g/dL (3.5-5.1); Alkaline Phosphatase 81 U/L (38-126); Anion Gap 3 mmol/L (4-12); Aspartate Amino Transferase 27 U/L (17-59); Bilirubin,Total 1.7 mg/dL (0.2-1.3); Blood Urea Nitrogen 4 mg/dL (9-20); Calcium 8.3 mg/dL (8.4-10.2); Carbon Dioxide 30 mmol/L (22-30); Chloride 100 mmol/L (98-107); Cholesterol 202 mg/dL (0-200); Estimated CRCL calculation 184 ml/min; Estimated Glomerular Filt Rate > 60; Glucose 119 mg/dL (65-110); HDL Direct 83 mg/dL; Lipase 963 U/L (23-300); Potassium 3.4 mmol/L (3.4-5.0); Sodium 133 mmol/L (137-145); Triglycerides 177 mg/dL (<150)
[2024-10-16 06:46] LABS: LDL Cholesterol Direct 89 mg/dL
[2024-10-16 07:09] LABS: Basophils Percent Auto 0.3 % (0.2-1.2); Eosinophils Absolute Auto 0.1 K/mm3 (0-0.3); Eosinophils Percent Auto 0.5 % (0-4.4); Hematocrit 42.5 % (42.0-52.0); Hemoglobin 14.5 g/dL (14.0-18.0); Immature Granulocyte Percent A 0.7 % (0-0.5); Lymphocytes Absolute Auto 1.57 K/mm3 (0.9-3.2); Lymphocytes Percent Auto 10.3 % (18.3-44.2); Mean Corpuscular HGB Conc 34.1 g/dl (32-36); Mean Corpuscular Hemoglobin 31.5 pg (26-34); Mean Corpuscular Volume 92.4 fl (80-100); Mean Platelet Volume 11.6 fl (7.4-10.4); Monocytes Absolute Auto 1.2 K/mm3 (0.1-0.6); Monocytes Percent Auto 7.5 % (2.6-8.5); Neutrophils Absolute Auto 12.4 K/mm3 (1.3-6.7); Neutrophils Percent Auto 80.7 % (45.5-73.1); Platelet Count Result 156 k/mm3 (150-375); Red Cell Distribution Width 13.7 % (11.5-14.5); White Blood Count 15.3 K/mm3 (4.5-10.0)
--- NOTE | 2024-10-16 07:28 | P.PNIM_ITS ---
Progress Note: A&P Assessment and Plan (1) Acute pancreatitis: Code(s): K85.90 - Acute pancreatitis without necrosis or infection, unspecified Status: Acute Assessment and Plan: LR bolus followed by LR at 200 NPO okay for water and ice chips Pain management Check lipid panel - unremarkable A.m. labs with lipase -Lipase & WBC steadily decreasing (2) Acute pain: Code(s): R52 - Pain, unspecified Status: Acute Assessment and Plan: IV pain medicine, changed duration from 3hrs to 2-3hrs of Dilaudid today due to pt increased pain (3) Alcohol dependence: Code(s): F10.20 - Alcohol dependence, uncomplicated Status: Acute Assessment and Plan: Monitor for withdrawals CIWA protocol placed today Liver enzymes WDL Plan Monitor pain, nausea, and hydration status Subjective Date/time seen: 10/16/24 1140 Interval history: 28-year-old male with history of etoh abuse and pancreatitis presents to the ED with abdominal pain x3 days, pt to the ED on 10/15. Patient is well-known to the hospitalist service. Pt also endorses nausea but denies vomiting. He does admit to drinking 10/14 causing acute pain. Patient denies vomiting. Patient denies change in medical history since leaving the hospital on 09/23/2024 for his last acute pancreatitis flare. ED: Patient had leukocytosis at 16.0, anion gap of 13, BUN of 6, creatinine of 0.65, lipase of 2138, abdominal CT showing acute pancreatitis with surrounding fat stranding. No abscess or fluid collection seen. Minimal changes from last CT exam on 09/18/2024. Pt assessed today and he is still endorsing nausea and upper abd pain that extends to his middle chest and R upper back area. Pt states that the upper chest and back pain were felt in the ED and have never really ceased. EKG was performed in ED, NSR. Denies urinary sx. Pt reporting this episode is worse than that of the episode x3 weeks ago in terms of pain and nausea. Educated pt on etoh cessation today and he was calm about the matter and is agreeable that he needs to stop drinking and that he was actually supposed to go back to rehab, but my phone got shut off, I need to follow-up on that. CIWA order set placed today accompanied by a care coordination consult. Continue IVF, pain medications, and antiemetics. Will re-assess pt status throughout the day and in the interim. Review of Systems Review of Systems: 12 systems were reviewed and are negativ e except for as per HPI. Gastrointestinal: Comments: +abd pain +Nausea Musculoskeletal: Comments: +R upper back pain Exam Const: General: no acute distress and uncomfortable HENMT: Face/Nose/Sinus: Normal nares present Other: tacky mucus membranes Eyes: General: appearance normal, both eyes and all related structures Sclera: sclerae normal Neck: Neck: supple Resp: Effort & Inspection: normal respiratory effort Auscultation: clear to auscultation bilaterally Cardio: Rate: regular rate Rhythm: regular rhythm GI: Inspection: non-distended Auscultation: normal bowel sounds Other: TTP upper abd, no rebound Skin: General skin exam: normal color and no rashes or lesions noted Wounds: no wounds Neuro: Speech: normal speech Motor exam (neuro): Normal motor muscle tone present throughout Sensory Exam: normal sensation Extrem: General: normal to inspection Psych: Mental Status: mental status grossly normal Affect: normal affect Objective Data Vital Signs Vital Signs: Vital Signs - 24 hr 10/15/24 10:25 10/15/24 12:40 10/15/24 14:38 Temperature 97.9 F Pulse Rate 88 95 83 Respiratory Rate 20 18 17 Blood Pressure 146/99 H 142/98 H 146/80 H Pulse Oximetry 98 100 100 Oxygen Delivery Room Air 10/15/24 17:26 10/15/24 18:49 10/15/24 18:59 Temperature 97.2 F L Pulse Rate 83 83 78 Respiratory Rate 17 17 16 Blood Pressure 128/72 170/90 H Pulse Oximetry 98 98 100 Oxygen Delivery Room Air 10/15/24 20:00 10/15/24 22:00 10/16/24 06:00 Temperature 97.9 F 97.8 F Pulse Rate 84 84 81 Respiratory Rate 18 18 18 Blood Pressure 170/95 H 145/77 H Pulse Oximetry 99 99 98 Oxygen Delivery Room Air Intake/Output Intake/Output: Intake & Output 10/13/24 10/14/24 10/15/24 10/16/24 23:59 23:59 23:59 23:59 Intake Total 1999 1999 Balance 1999 1999 Meds/Results Medications: Active Medications Generic Name Dose Route Start Last Admin Trade Name Freq PRN Reason Stop Dose Admin Enoxaparin Sodium 40 mg 10/16/24 09:00 Enoxaparin 40 Mg/0.4 Ml Syringe SUB-Q DAILY CECY Hydromorphone HCl 1 mg 10/16/24 01:28 10/16/24 05:16 Hydromorphone Hcl Inj (*Crx) 2 Mg/Ml Vial IV PUSH 1 mg Q3H PRN Administration Pain Rated 7-10 Lactated Ringer's 1,000 mls @ 200 mls/hr 10/15/24 18:45 10/16/24 02:35 Lr - Lactated Ringers Iv IV CONT 200 mls/hr .Q5H CECY Administration Ketorolac Tromethamine 15 mg 10/15/24 21:00 10/16/24 02:35 Ketorolac 15 Mg/Ml Vial (*Bkc) IV PUSH 15 mg Q6H CECY Administration Ondansetron HCl 4 mg 10/15/24 17:24 10/16/24 02:40 Ondansetron Inj 4 Mg/2 Ml Vial IV PUSH 4 mg Q4H PRN Administration Nausea Radiology Results: ITS Impressions Abdomen/Pelvis CT 10/15/24 16:42 IMPRESSION: 1. Acute pancreatitis with surrounding fat stranding. No abscess formation or collection seen. Follow-up advised. Minimal change from previous examination seen. 2. No evidence of appendicitis, diverticulitis or intestinal obstruction. 3. Fat infiltration of the liver. Labs Labs: Laboratory Results - last 24 hr 10/15/24 10/16/24 14:39 05:27 WBC 16.0 H 15.3 H RBC 5.10 4.60 Hgb 16.0 14.5 Hct 46.1 42.5 MCV 90.4 92.4 MCH 31.4 31.5 MCHC 34.7 34.1 RDW 13.9 13.7 Plt Count 198 156 MPV 11.7 H 11.6 H Immature Gran % (Auto) 0.7 H 0.7 H Neut % (Auto) 84.9 H 80.7 H Lymph % (Auto) 7.8 L 10.3 L [place] % (Auto) 5.9 7.5 Eos % (Auto) 0.3 0.5 Baso % (Auto) 0.4 0.3 Lymph # (Auto) 1.24 1.57 [place] # (Auto) 0.9 H 1.2 H Eos # (Auto) 0.1 0.1 Baso # (Auto) 0.1 0.0 Abs Immat Gran (auto) 0.11 H 0.10 H Absolute Neuts (auto) 13.6 H 12.4 H Absolute Nucleated RBC 0.000 0.000 Nucleated RBC % 0.0 0.0 Sodium 140 133 L Potassium 3.5 3.4 Chloride 102 100 Carbon Dioxide 25 30 Anion Gap 13 H 3 L BUN 6 L 4 L Creatinine 0.65 L 0.54 L Estim Creat Clear Calc 156 184 Estimated GFR > 60 > 60 Glucose 128 H 119 H Calcium 8.7 8.3 L Total Bilirubin 0.8 1.7 H AST 46 27 ALT 42 28 Alkaline Phosphatase 107 81 Total Protein 8.0 7.0 Albumin 4.7 3.6 Triglycerides 177 H Cholesterol 202 H LDL Cholesterol Direct 89 HDL Direct 83 Lipase 2138 H 963 H Quality VTE Prophylaxis VTE prophylaxis: mechanical ordered and pharmacologic ordered
[2024-10-16] MEDS: ENOXAPARIN 40 MG/0.4 ML SYRINGE SUB-Q (08:11)
[2024-10-16] MEDS: FAMOTIDINE 20 MG/2 ML VIAL IV PUSH (12:19)
[2024-10-16] MEDS: LORazepam INJ (*CRX) 2 MG/ML VIAL IV PUSH ×2 (15:10→21:48)
[2024-10-16 18:45] LABS: Glucose Point of Care 122 mg/dl (65-105)
[2024-10-16] MEDS: METOCLOPRAMIDE HCL INJ 10 MG/2 ML VIAL IV PUSH (21:53)
[2024-10-17] VITALS (8 sets, daily range): BP systolic 128–163; BP diastolic 76–94; PULSE 87–110; RESP 16–20; TEMP 36.1–36.6; O2SAT 94–99
[2024-10-17] MEDS: HYDROmorphone HCL INJ (*CRX) 2 MG/ML VIAL 1 MG IV PUSH ×8 (02:14→23:33)
[2024-10-17] MEDS: FAMOTIDINE 20 MG/2 ML VIAL IV PUSH (02:20)
[2024-10-17] MEDS: LACTATED RINGERS 1,000 ML 200 ML IV CONT ×4 (05:37→18:10)
[2024-10-17 06:35] LABS: Basophils Percent Auto 0.2 % (0.2-1.2); Eosinophils Absolute Auto 0.1 K/mm3 (0-0.3); Eosinophils Percent Auto 0.9 % (0-4.4); Hematocrit 40.7 % (42.0-52.0); Hemoglobin 13.6 g/dL (14.0-18.0); Immature Granulocyte Absolute 0.05 K/mm3 (0.00-0.031); Immature Granulocyte Percent A 0.5 % (0-0.5); Immature Platelet Fraction Pct 10.7 % (0.9-11.2); Lymphocytes Percent Auto 8.9 % (18.3-44.2); Mean Corpuscular HGB Conc 33.4 g/dl (32-36); Mean Corpuscular Hemoglobin 31.5 pg (26-34); Mean Corpuscular Volume 94.2 fl (80-100); Monocytes Absolute Auto 1.2 K/mm3 (0.1-0.6); Monocytes Percent Auto 11.3 % (2.6-8.5); Neutrophils Percent Auto 78.2 % (45.5-73.1); Platelet Count Result 119 k/mm3 (150-375); Red Blood Count 4.32 M/mm3 (4.6-6.20); Red Cell Distribution Width 13.2 % (11.5-14.5); White Blood Count 10.2 K/mm3 (4.5-10.0)
[2024-10-17 06:43] LABS: Alanine Aminotransferase 35 U/L (6-50); Albumin Level 3.5 g/dL (3.5-5.1); Alkaline Phosphatase 74 U/L (38-126); Anion Gap 5 mmol/L (4-12); Aspartate Amino Transferase 65 U/L (17-59); Bilirubin,Total 4.8 mg/dL (0.2-1.3); Calcium 8.4 mg/dL (8.4-10.2); Carbon Dioxide 29 mmol/L (22-30); Chloride 100 mmol/L (98-107); Estimated CRCL calculation 167 ml/min; Estimated Glomerular Filt Rate > 60; Glucose 117 mg/dL (65-110); Lipase 363 U/L (23-300); Potassium 3.2 mmol/L (3.4-5.0); Sodium 134 mmol/L (137-145)
[2024-10-17 06:59] LABS: Blood Urea Nitrogen < 2 mg/dL (9-20)
[2024-10-17] MEDS: ENOXAPARIN 40 MG/0.4 ML SYRINGE SUB-Q (08:28)
--- NOTE | 2024-10-17 10:31 | P.PNIM_ITS ---
Progress Note: A&P Assessment and Plan (1) Acute pancreatitis: Code(s): K85.90 - Acute pancreatitis without necrosis or infection, unspecified Status: Acute Assessment and Plan: LR bolus followed by LR at 200 NPO okay for water and ice chips Pain management, will reassess dosing tomorrow 10/18 Check lipid panel - unremarkable Continue A.m. labs with lipase -Lipase & WBC steadily decreasing (2) Acute pain: Code(s): R52 - Pain, unspecified Status: Acute Assessment and Plan: Pancreatitis pain/abd pain IV pain medicine, changed duration from 3hrs to 2-3hrs of Dilaudid 10/17 due to pt increased pain, continue and reassess pain and dosage on 10/18 (3) Alcohol dependence: Code(s): F10.20 - Alcohol dependence, uncomplicated Status: Acute Assessment and Plan: Monitor for withdrawals - spoke to pt at depth about this today and he does reports intermittently feeling irritable/restless/shaky like a drink could help. I explained when and when not to request the lorazepam, pt in understanding. [place] protocol in place Liver enzymes WDL Plan Monitor pain, nausea, hydration, and lab status Subjective Date/time seen: 10/17/24 1004 Interval history: 28-year-old male with history of etoh abuse and pancreatitis presents to the ED with abdominal pain x3 days, pt to the ED on 10/15. Patient is well-known to the hospitalist service. Pt also endorses nausea but denies vomiting. He does admit to drinking 10/14 causing acute pain. Patient denies vomiting. Patient denies change in medical history since leaving the hospital on 09/23/2024 for his last acute pancreatitis flare. ED: Patient had leukocytosis at 16.0, anion gap of 13, BUN of 6, creatinine of 0.65, lipase of 2138, abdominal CT showing acute pancreatitis with surrounding fat stranding. No abscess or fluid collection seen. Minimal changes from last CT exam on 09/18/2024. Pt assessed today and he is still endorsing nausea and upper abd pain that extends to his middle chest and R upper back area. Pt states that the upper chest and back pain were felt in the ED and have never really ceased. EKG was performed in ED, NSR. Denies urinary sx. Pt reporting this episode is worse than that of the episode x3 weeks ago in terms of pain and nausea. Educated pt on etoh cessation and he was calm about the matter and is agreeable that he needs to stop drinking and that he was actually supposed to go back to rehab, but my phone got shut off, I need to follow-up on that. CIWA order set placed 09/17 accompanied by a care coordination consult. Continue IVF, pain medications, and antiemetics. 09/17: Pt continues to c/o pain in his upper abd as well as nausea. Pt c/o not getting meds in a timely manner, but when assessing medication administration, pt has been receiving Dilaudid 1mg every 3 hours or so, will continue this regimen and will re-assess pt status tomorrow and in the interim. Pt still not wanting to try eating as he had a popsicle overnight and it made his abd pain worse, will continue NPO diet. Lipase has dropped significantly overnight but remains elevated. Will continue to trend labs. Pt tachycardic and hypertensive, probably due to pain and/or dehydration, will continue to monitor. Review of Systems Review of Systems: 12 systems were reviewed and are negativ e except for as per HPI. Exam Const: General: uncomfortable HENMT: Face/Nose/Sinus: Normal nares present Other: tacky mucus membranes Eyes: General: appearance normal, both eyes and all related structures Sclera: sclerae normal Neck: Neck: supple Resp: Effort & Inspection: normal respiratory effort Auscultation: clear to auscultation bilaterally Cardio: Rate: tachycardic Rhythm: regular rhythm GI: Inspection: non-distended Auscultation: normal bowel sounds Other: TTP upper abd, no rebound Skin: General skin exam: normal color and no rashes or lesions noted Wounds: no wounds Neuro: Speech: normal speech Motor exam (neuro): Normal motor muscle tone present throughout Sensory Exam: normal sensation Extrem: General: normal to inspection Psych: Mental Status: mental status grossly normal Affect: normal affect Objective Data Vital Signs Vital Signs: Vital Signs - 24 hr 10/16/24 11:33 10/16/24 12:00 10/16/24 14:00 Temperature 98.4 F Pulse Rate 92 Respiratory Rate 18 Blood Pressure 138/69 148/79 H 142/97 H Pulse Oximetry 96 Oxygen Delivery Fraction of Inspired Oxygen 10/16/24 15:08 10/16/24 20:00 10/16/24 20:00 Temperature Pulse Rate 104 H Respiratory Rate 18 Blood Pressure 148/79 H 163/94 H Pulse Oximetry 100 Oxygen Delivery Room Air Fraction of Inspired Oxygen 10/16/24 20:37 10/16/24 22:00 10/17/24 00:00 Temperature 98 F Pulse Rate 104 H Respiratory Rate 18 Blood Pressure 163/94 H 163/94 H Pulse Oximetry 100 100 Oxygen Delivery Room Air Fraction of Inspired Oxygen 21 10/17/24 04:00 10/17/24 05:57 Temperature 96.9 F L Pulse Rate 110 H Respiratory Rate 19 Blood Pressure 163/94 H 158/84 H Pulse Oximetry 97 Oxygen Delivery Fraction of Inspired Oxygen Intake/Output Intake/Output: Intake & Output 10/14/24 10/15/24 10/16/24 10/17/24 23:59 23:59 23:59 23:59 Intake Total 1999 5393.3 1566.7 Balance 1999 5393.3 1566.7 Meds/Results Medications: Active Medications Generic Name Dose Route Start Last Admin Trade Name Freq PRN Reason Stop Dose Admin Enoxaparin Sodium 40 mg 10/16/24 09:00 10/17/24 08:28 Enoxaparin 40 Mg/0.4 Ml Syringe SUB-Q 40 mg DAILY CECY Administration Famotidine 20 mg 10/16/24 23:45 10/17/24 02:20 Famotidine 20 Mg/2 Ml Vial IV PUSH 20 mg Q12HR PRN Administration Abdominal Cramping Hydromorphone HCl 1 mg 10/16/24 11:47 10/17/24 08:32 Hydromorphone Hcl Inj (*Crx) 2 Mg/Ml Vial IV PUSH 1 mg Q2-3H PRN Administration Pain Rated 7-10 Lactated Ringer's 1,000 mls @ 200 mls/hr 10/15/24 18:45 10/17/24 08:27 Lr - Lactated Ringers Iv IV CONT 200 mls/hr .Q5H CECY Administration Lorazepam 2 mg 10/16/24 11:33 10/16/24 21:48 Lorazepam Inj (*Crx) 2 Mg/Ml Vial IV PUSH 2 mg Q4H PRN Administration CIWA 8-15 Metoclopramide HCl 10 mg 10/16/24 13:40 10/16/24 21:53 Metoclopramide Hcl Inj 10 Mg/2 Ml Vial IV PUSH 10 mg Q6HR PRN Administration Abdominal Cramping Ondansetron HCl 4 mg 10/15/24 17:24 10/16/24 09:03 Ondansetron Inj 4 Mg/2 Ml Vial IV PUSH 4 mg Q4H PRN Administration Nausea Radiology Results: ITS Impressions Abdomen/Pelvis CT 10/15/24 16:42 IMPRESSION: 1. Acute pancreatitis with surrounding fat stranding. No abscess formation or collection seen. Follow-up advised. Minimal change from previous examination seen. 2. No evidence of appendicitis, diverticulitis or intestinal obstruction. 3. Fat infiltration of the liver. Labs Labs: Laboratory Results - last 24 hr 10/16/24 10/17/24 18:41 06:00 WBC 10.2 H RBC 4.32 L Hgb 13.6 L Hct 40.7 L MCV 94.2 MCH 31.5 MCHC 33.4 RDW 13.2 Plt Count 119 L MPV 12.0 H Immature Gran % (Auto) 0.5 Neut % (Auto) 78.2 H Lymph % (Auto) 8.9 L [place] % (Auto) 11.3 H Eos % (Auto) 0.9 Baso % (Auto) 0.2 Lymph # (Auto) 0.90 [place] # (Auto) 1.2 H Eos # (Auto) 0.1 Baso # (Auto) 0.0 Abs Immat Gran (auto) 0.05 H Absolute Neuts (auto) 8.0 H Absolute Nucleated RBC 0.000 Nucleated RBC % 0.0 % Immature Plt Fraction 10.7 Sodium 134 L Potassium 3.2 L Chloride 100 Carbon Dioxide 29 Anion Gap 5 BUN < 2 L Creatinine 0.60 L Estim Creat Clear Calc 167 Estimated GFR > 60 Glucose 117 H POC Capillary Glucose 122 H Calcium 8.4 Total Bilirubin 4.8 H AST 65 H ALT 35 Alkaline Phosphatase 74 Total Protein 7.0 Albumin 3.5 Lipase 363 H Quality VTE Prophylaxis VTE prophylaxis: mechanical ordered and pharmacologic ordered
[2024-10-17 11:34] LABS: Glucose Point of Care 124 mg/dl (65-105)
[2024-10-17] MEDS: ONDANSETRON INJ 4 MG/2 ML VIAL IV PUSH (15:16)
[2024-10-17] MEDS: NICOTINE (*PBKC) 21 MG PATCH 1 PATCH TRANSDERM (16:11)
[2024-10-17] MEDS: METOCLOPRAMIDE HCL INJ 10 MG/2 ML VIAL IV PUSH (18:12)
[2024-10-17 23:57] LABS: Glucose Point of Care 117 mg/dl (65-105)
[2024-10-18] MEDS: LACTATED RINGERS 1,000 ML 200 ML IV CONT ×3 (02:04→15:11)
[2024-10-18] MEDS: HYDROmorphone HCL INJ (*CRX) 2 MG/ML VIAL 1 MG IV PUSH ×4 (02:42→13:10)
[2024-10-18 05:54] VITALS: BP 135/96; PULSE 78; RESP 16; TEMP 36.6; O2SAT 98
[2024-10-18 05:56] LABS: Glucose Point of Care 108 mg/dl (65-105)
[2024-10-18 06:33] LABS: Basophils Percent Auto 0.3 % (0.2-1.2); Eosinophils Absolute Auto 0.2 K/mm3 (0-0.3); Eosinophils Percent Auto 3.1 % (0-4.4); Hematocrit 40.1 % (42.0-52.0); Hemoglobin 13.1 g/dL (14.0-18.0); Immature Granulocyte Absolute 0.03 K/mm3 (0.00-0.031); Immature Granulocyte Percent A 0.5 % (0-0.5); Immature Platelet Fraction Pct 11.1 % (0.9-11.2); Lymphocytes Absolute Auto 1.43 K/mm3 (0.9-3.2); Lymphocytes Percent Auto 24.9 % (18.3-44.2); Mean Corpuscular HGB Conc 32.7 g/dl (32-36); Mean Platelet Volume 11.8 fl (7.4-10.4); Monocytes Absolute Auto 0.7 K/mm3 (0.1-0.6); Monocytes Percent Auto 11.5 % (2.6-8.5); Neutrophils Absolute Auto 3.4 K/mm3 (1.3-6.7); Neutrophils Percent Auto 59.7 % (45.5-73.1); Platelet Count Result 115 k/mm3 (150-375); Red Blood Count 4.22 M/mm3 (4.6-6.20); Red Cell Distribution Width 13.4 % (11.5-14.5); White Blood Count 5.8 K/mm3 (4.5-10.0)
[2024-10-18 06:40] LABS: Alanine Aminotransferase 77 U/L (6-50); Albumin Level 3.6 g/dL (3.5-5.1); Alkaline Phosphatase 95 U/L (38-126); Anion Gap 7 mmol/L (4-12); Aspartate Amino Transferase 137 U/L (17-59); Bilirubin,Total 4.3 mg/dL (0.2-1.3); Blood Urea Nitrogen 3 mg/dL (9-20); Calcium 8.6 mg/dL (8.4-10.2); Carbon Dioxide 29 mmol/L (22-30); Chloride 99 mmol/L (98-107); Estimated CRCL calculation 181 ml/min; Estimated Glomerular Filt Rate > 60; Glucose 94 mg/dL (65-110); Lipase 199 U/L (23-300); Magnesium 1.9 mg/dL (1.6-2.3); Potassium 3.3 mmol/L (3.4-5.0); Sodium 135 mmol/L (137-145)
--- NOTE | 2024-10-18 09:03 | P.PNIM_ITS ---
Progress Note: A&P Assessment and Plan (1) Acute pancreatitis: Code(s): K85.90 - Acute pancreatitis without necrosis or infection, unspecified Status: Acute Assessment and Plan: LR bolus followed by LR at 200 Puree diet started today Pain management reassessed today -Decreasing Dilaudid from 2-3 hr to 3-4 hours, plan to continue to decrease mg/duration Check lipid panel - unremarkable Continue A.m. labs with lipase -Lipase & WBC steadily decreasing, now at WDL levels (2) Acute pain: Code(s): R52 - Pain, unspecified Status: Acute Assessment and Plan: Pancreatitis pain/abd pain IV pain medicine, changed duration from 2-3hrs of Dilaudid to 3-4 hours, slowly backing down. Will continue to assess. (3) Alcohol dependence: Code(s): F10.20 - Alcohol dependence, uncomplicated Status: Acute Assessment and Plan: Monitor for withdrawals - spoke to pt at depth about this today and he does reports intermittently feeling irritable/restless/shaky like a drink could help. I explained when and when not to request the lorazepam, pt in understanding. -Pt has only received x2 doses while inpt, last being on 10/17 2147 [facility] protocol in place Liver enzymes WDL Plan Monitor pain, nausea, hydration, and lab status Subjective Date/time seen: 10/18/24 1010 Interval history: 28-year-old male with history of etoh abuse and pancreatitis presents to the ED with abdominal pain x3 days, pt to the ED on 10/15. Patient is well-known to the hospitalist service. Pt also endorses nausea but denies vomiting. He does admit to drinking 10/14 causing acute pain. Patient denies vomiting. Patient denies change in medical history since leaving the hospital on 09/23/2024 for his last acute pancreatitis flare. ED: Patient had leukocytosis at 16.0, anion gap of 13, BUN of 6, creatinine of 0.65, lipase of 2138, abdominal CT showing acute pancreatitis with surrounding fat stranding. No abscess or fluid collection seen. Minimal changes from last CT exam on 09/18/2024. Pt assessed today and he is still endorsing nausea and upper abd pain that extends to his middle chest and R upper back area. Pt states that the upper chest and back pain were felt in the ED and have never really ceased. EKG was performed in ED, NSR. Denies urinary sx. Pt reporting this episode is worse than that of the episode x3 weeks ago in terms of pain and nausea. Educated pt on etoh cessation and he was calm about the matter and is agreeable that he needs to stop drinking and that he was actually supposed to go back to rehab, but my phone got shut off, I need to follow-up on that. CIWA order set placed 09/17 accompanied by a care coordination consult. Continue IVF, pain medications, and antiemetics. 09/18: Pt looks more comfortable today upon examination. Pt continues to c/o pain in his upper abd but it has been mildly better today. Continues to c/o nausea. Lipase now WDL. Will continue to trend labs. Pt states that he had soup yesterday but did not have breakfast today due to pain but does endorse drinking coffee this AM. Agreeable to puree diet with plan to advance as tolerated to low fat diet. Decreasing duration of Dilaudid today, will continue to reassess pain. Review of Systems Review of Systems: 12 systems were reviewed and are negativ e except for as per HPI. Exam Const: General: no acute distress; No in distress Other: Appears more comfortable today than yesterday HENMT: Face/Nose/Sinus: Normal nares present Mouth: Yes moist mucous membranes Eyes: General: appearance normal, both eyes and all related structures Sclera: sclerae normal Neck: Neck: supple Resp: Effort & Inspection: normal respiratory effort Auscultation: clear to auscultation bilaterally Cardio: Rate: regular rate and tachycardic Rhythm: regular rhythm GI: Inspection: non-distended Auscultation: normal bowel sounds Other: TTP upper abd, no rebound Skin: General skin exam: normal color and no rashes or lesions noted Wounds: no wounds Neuro: Speech: normal speech Motor exam (neuro): Normal motor muscle tone present throughout Sensory Exam: normal sensation Extrem: General: normal to inspection Psych: Mental Status: mental status grossly normal Affect: normal affect Objective Data Vital Signs Vital Signs: Vital Signs - 24 hr 10/17/24 12:00 10/17/24 14:00 10/17/24 16:00 Temperature 97 F L Pulse Rate 93 Respiratory Rate 20 Blood Pressure 144/76 H 128/87 147/81 H Pulse Oximetry 98 Oxygen Delivery 10/17/24 20:46 10/18/24 05:54 10/18/24 08:00 Temperature 97.8 F 97.9 F Pulse Rate 87 78 Respiratory Rate 16 16 Blood Pressure 132/82 135/96 H Pulse Oximetry 94 98 Oxygen Delivery Room Air Intake/Output Intake/Output: Intake & Output 10/15/24 10/16/24 10/17/24 10/18/24 23:59 23:59 23:59 23:59 Intake Total 1999 5393.3 4193.4 500 Balance 1999 5393.3 4193.4 500 Meds/Results Medications: Active Medications Generic Name Dose Route Start Last Admin Trade Name Freq PRN Reason Stop Dose Admin Enoxaparin Sodium 40 mg 10/16/24 09:00 10/17/24 08:28 Enoxaparin 40 Mg/0.4 Ml Syringe SUB-Q 40 mg DAILY CECY Administration Famotidine 20 mg 10/16/24 23:45 10/17/24 02:20 Famotidine 20 Mg/2 Ml Vial IV PUSH 20 mg Q12HR PRN Administration Abdominal Cramping Hydromorphone HCl 1 mg 10/16/24 11:47 10/18/24 06:07 Hydromorphone Hcl Inj (*Crx) 2 Mg/Ml Vial IV PUSH 1 mg Q2-3H PRN Administration Pain Rated 7-10 Lactated Ringer's 1,000 mls @ 200 mls/hr 10/15/24 18:45 10/18/24 02:27 Lr - Lactated Ringers Iv IV CONT Not Given .Q5H CECY Lorazepam 2 mg 10/16/24 11:33 10/16/24 21:48 Lorazepam Inj (*Crx) 2 Mg/Ml Vial IV PUSH 2 mg Q4H PRN Administration CIWA 8-15 Metoclopramide HCl 10 mg 10/16/24 13:40 10/17/24 18:12 Metoclopramide Hcl Inj 10 Mg/2 Ml Vial IV PUSH 10 mg Q6HR PRN Administration Abdominal Cramping Nicotine 1 patch 10/17/24 15:35 10/17/24 16:11 Nicotine (*Pbkc) 21 Mg Patch TRANSDERM 1 patch DAILY CECY Administration Ondansetron HCl 4 mg 10/15/24 17:24 10/17/24 15:16 Ondansetron Inj 4 Mg/2 Ml Vial IV PUSH 4 mg Q4H PRN Administration Nausea Radiology Results: ITS Impressions Abdomen/Pelvis CT 10/15/24 16:42 IMPRESSION: 1. Acute pancreatitis with surrounding fat stranding. No abscess formation or collection seen. Follow-up advised. Minimal change from previous examination seen. 2. No evidence of appendicitis, diverticulitis or intestinal obstruction. 3. Fat infiltration of the liver. Labs Labs: Laboratory Results - last 24 hr 10/17/24 10/17/24 10/18/24 11:31 23:55 05:54 WBC RBC Hgb Hct MCV MCH MCHC RDW Plt Count MPV Immature Gran % (Auto) Neut % (Auto) Lymph % (Auto) [place] % (Auto) Eos % (Auto) Baso % (Auto) Lymph # (Auto) [place] # (Auto) Eos # (Auto) Baso # (Auto) Abs Immat Gran (auto) Absolute Neuts (auto) Absolute Nucleated RBC Nucleated RBC % % Immature Plt Fraction Sodium Potassium Chloride Carbon Dioxide Anion Gap BUN Creatinine Estim Creat Clear Calc Estimated GFR Glucose POC Capillary Glucose 124 H 117 H 108 H Calcium Magnesium Total Bilirubin AST ALT Alkaline Phosphatase Total Protein Albumin Lipase 10/18/24 06:19 WBC 5.8 RBC 4.22 L Hgb 13.1 L Hct 40.1 L MCV 95.0 MCH 31.0 MCHC 32.7 RDW 13.4 Plt Count 115 L MPV 11.8 H Immature Gran % (Auto) 0.5 Neut % (Auto) 59.7 Lymph % (Auto) 24.9 [place] % (Auto) 11.5 H Eos % (Auto) 3.1 Baso % (Auto) 0.3 Lymph # (Auto) 1.43 [place] # (Auto) 0.7 H Eos # (Auto) 0.2 Baso # (Auto) 0.0 Abs Immat Gran (auto) 0.03 Absolute Neuts (auto) 3.4 Absolute Nucleated RBC 0.000 Nucleated RBC % 0.0 % Immature Plt Fraction 11.1 Sodium 135 L Potassium 3.3 L Chloride 99 Carbon Dioxide 29 Anion Gap 7 BUN 3 L Creatinine 0.55 L Estim Creat Clear Calc 181 Estimated GFR > 60 Glucose 94 POC Capillary Glucose Calcium 8.6 Magnesium 1.9 Total Bilirubin 4.3 H AST 137 H ALT 77 H Alkaline Phosphatase 95 Total Protein 7.0 Albumin 3.6 Lipase 199 Quality VTE Prophylaxis VTE prophylaxis: mechanical ordered and pharmacologic ordered
[2024-10-18] MEDS: NICOTINE (*PBKC) 21 MG PATCH 1 PATCH TRANSDERM (09:31)
[2024-10-18] MEDS: ONDANSETRON INJ 4 MG/2 ML VIAL IV PUSH (10:25)
[2024-10-18 12:00] VITALS: BP 139/96
[2024-10-18 12:08] LABS: Glucose Point of Care 81 mg/dl (65-105)
[2024-10-18] MEDS: ENOXAPARIN 40 MG/0.4 ML SYRINGE SUB-Q (12:26)
[2024-10-18 14:00] VITALS: BP 139/96; PULSE 80; RESP 18; TEMP 36.3; O2SAT 98
[2024-10-18] MEDS: LORazepam INJ (*CRX) 2 MG/ML VIAL IV PUSH (15:05)
--- NOTE | 2024-10-18 17:21 | PC.NURSE ---
Left AMA. Pulled IV site out.
== END 2024-10-18 17:20 | disposition left against medical advice (07) | DRG 282 ==
LOC: ANHED 18:02 → ANH3MEDSUR 23:20
PROVIDERS: Nurse Practitioner Gerontology; Admitting Provider Internal Medicine; Emergency Provider Emergency Medicine; PCP Physician Assistant Medical
DX: K85.20 Alcohol induced acute pancreatitis without necrosis or infection (principal); F10.20 Alcohol dependence, uncomplicated; F17.290 Nicotine dependence, other tobacco product, uncomplicated
CPT/HCPCS: 36415; 74177; 80053; 80061; 82948; 83690; 83735; 85025; 85055; 93005; 96361; 96374; 96375; 96376; 99285; A9270; G0378; G0379; J1171; J1650; J1885; J2060; J2270; J2405; J2765; J7030; J7120; Q9967

== ENCOUNTER 2024-11-14 14:47 | Inpatient (IN) | payer OTHER, SELFPAY ==
[2024-11-14] VITALS (16 sets, daily range): BP systolic 134–152; BP diastolic 93–101; PULSE 77–96; RESP 16–18; TEMP 36.6–36.8; O2SAT 95–98; BMI 25.2; BMI 24.7
--- NOTE | ~2024-11-14 | US_ITS ---
EXAMINATION: US venous doppler UE RT DATE: 11/19/2024 12:39 INDICATION: Right upper limb swelling TECHNIQUE: Grayscale images without and with compression and Doppler images of the right upper extrem ity veins were obtained. COMPARISON: None. FINDINGS: The right internal jugular vein, subclavian vein, axillary vein, brachial vein, basilic vein, cephali c vein, radial vein, and ulnar vein are patent. IMPRESSION: 1. Patent right upper extremity veins. No evidence of venous thrombosis. Reviewed, dictated and finalized at location A.
--- NOTE | ~2024-11-14 | CT_ITS ---
CLINICAL INDICATION: Fever and pancreatitis without leukocytosis COMPARISON: 11/14/2024 TECHNIQUE: Multiple contiguous axial images of the abdomen and pelvis were performed without the admi nistration of intravenous contrast The dose-length product (DLP) was 454.48 mGy-cm. Automated exposure control and iterative reconstruction technique were employed. FINDINGS/OBSERVATIONS: Visualized lower thorax: Left basilar atelectasis. The remainder of the bilateral lung bases are clear. The heart is of normal size, without pericardial effusion. Liver: The liver demonstrates homogeneous attenuation and is enlarged measuring 21 cm in longitudinal dimens ion. Gallbladder and biliary system: The gallbladder is only minimally distended, and otherwise unremarkable. Pancreas: Limited evaluation of the pancreas secondary to the lack of intravenous contrast. Surrounding inflammatory change is present. Without intravenous contrast, unable to evaluate for the progression of interstitial pancreatitis to necrotic or hemorrhagic pancreatitis. Spleen: Punctate calcifications identified within the splenic parenchyma, suggesting prior granulomat ous disease. The remainder of the spleen demonstrates otherwise homogeneous attenuation and is not enlarged. Kidneys: The bilateral kidneys are unremarkable, without hydronephrosis or renal calculi. Adrenal glands: Unremarkable. Gastrointestinal tract: Unremarkable. Appendix: The appendix is not definitively visualized. However, no pericecal inflammatory change is identified suggest the presence of acute appendicitis. Vasculature: Unremarkable. Lymph nodes: Limited evaluation without intravenous contrast. Pelvic structures: The bladder is markedly distended. The prostate gland is not enlarged. Body wall and musculoskeletal: Small fat-containing umbilical hernia. No significant degenerative disease within the lower thoracic or lumbosacral spine. IMPRESSION: Without intravenous contrast, unable to evaluate for the progression of interstitial pancreatitis to necrotic or hemorrhagic pancreatitis. Bladder distention. Hepatomegaly Reviewed, dictated and finalized at location A. IMPRESSION: Without intravenous contrast, unable to evaluate for the progression of interst itial pancreatitis to necrotic or hemorrhagic pancreatitis. Bladder distention. Hepatomegaly
--- NOTE | ~2024-11-14 | CT_ITS ---
EXAMINATION: CTA abdomen pelvis DATE: 11/19/2024 10:30 INDICATION: Progression of interstitial pancreatitis TECHNIQUE: Computed tomographic angiography (CTA) of the abdomen and pelvis was performed with 100 mL Omnipaque-350 intravenous contrast. Additional 3D reconstructions utilizing rotating maximum intensi ty projection (MIP) were performed. Automated exposure control and iterative reconstruction technique were employed. The dose-length product was 415.71 mGy-cm. COMPARISON: 11/18/2024 FINDINGS: Mild dependent atelectasis in the lower lobes. Heart size is normal. No pericardial or pleural effusi on. Heterogeneous pattern of diffuse hepatic steatosis with regions of more focal fat along the devaughn hepatis and geographic regions of peripheral wedge-shaped focal fatty sparing primarily in the right hepatic lobe. Gallbladder, bilateral adrenal glands and kidneys are normal. Splenomegaly measuring 1 5.6 cm in maximal length. Several splenic calcifications consistent with old granulomatous disease. T here has been some decrease in the degree of inflammatory stranding surrounding the pancreas consiste nt with acute pancreatitis. No abscess or other acute peripancreatic fluid collections. Bowels includ ing the appendix are normal. Bladder is normal. No free intraperitoneal gas or fluid. No pathological ly enlarged abdominal or pelvic lymphadenopathy. The aorta and major arteries arising from the aorta are normal in caliber with no hemodynamically significant atherosclerosis or dissection. Partially vi sualized internal fixation with antegrade intramedullary hermann and subtrochanteric interlocking screw a t the proximal left femur. IMPRESSION: 1. Mild decrease in the peripancreatic inflammatory stranding consistent with improving acute interst itial pancreatitis. 2. Diffuse hepatic steatosis. 3. Nonspecific splenomegaly. Reviewed, dictated and finalized at location A. IMPRESSION: 1. Mild decrease in the peripancreatic inflammatory stranding consistent with i mproving acute interstitial pancreatitis. 2. Diffuse hepatic steatosis. 3. Nonspecific splenomegaly.
--- NOTE | ~2024-11-14 | MR_ITS ---
EXAMINATION: MR MRCP wo/w con/w 3D wo ind DATE: 11/17/2024 12:30 INDICATION: Elevated liver function tests and bilirubin TECHNIQUE: Magnetic resonance imaging (MRI) of the abdomen was performed without and with 17 mL Multi marly intravenous contrast. Sequences included coronal T2-weighted SS-FSE, coronal T2-weighted FS SS- FSE, coronal T2-weighted FS FIESTA, axial T2-weighted FS FIESTA, axial T2-weighted FIESTA, sagittal T 2-weighted SS-FSE, axial T1-weighted dual-echo FSPGR, axial T2-weighted SS-FSE, axial T1-weighted LAV A, axial T2-weighted STIR FSE. Thick-slab T2-weighted FRFSE-XL images were obtained for magnetic reso nance cholangiopancreatography (MRCP). Rotating maximum intensity projection 3-D reconstructions of t he volumetric data were created by the technologist. Postcontrast sequences included a time course of axial T1-weighted LAVA. COMPARISON: CT dated 11/14/2024 FINDINGS: ABDOMEN MRI: Heart size is normal. No pericardial or pleural effusion. There is a focus of metallic f ield artifact which appears to correspond to a linear metallic density potentially a clip within the lumen of the proximal gastric body which is been present since CT date. Correlate with clinica l/surgical history. Somewhat heterogeneous pattern of diffuse hepatic steatosis with signal dropout o n opposed phase imaging. Gallbladder, spleen, bilateral adrenal glands and kidneys are normal. There is peripancreatic edema with small amount of nonloculated fluid tracking posteriorly and laterally al lupillo the bilateral anterior pararenal spaces to the paracolic gutters consistent with acute interstiti al pancreatitis.. No abscess, pseudocyst or loculated acute peripancreatic fluid collections. Visuali zed portions of bowels are unremarkable. No pathologically enlarged abdominal lymphadenopathy. Normal bone marrow signal throughout. ABDOMEN MRCP: No intrahepatic biliary ductal dilation. The common hepatic duct measures up to 6 mm in maximal diame ter which is normal. There is a relatively low-lying confluence with the cystic duct with smooth tape ring of the short common bile duct without evident intraluminal filling defects to suggest choledocho lithiasis. . IMPRESSION: 1. Radiographic uncomplicated acute interstitial pancreatitis. 2. No cholelithiasis/choledocholithiasis or intra or extra hepatic biliary ductal dilation. 3. Diffuse hepatic steatosis. Reviewed, dictated and finalized at location A. IMPRESSION: 1. Radiographic uncomplicated acute interstitial pancreatitis. 2. No cholelithiasis/choledocholithiasis or intra or extra hepatic biliary duct al dilation. 3. Diffuse hepatic steatosis.
--- NOTE | ~2024-11-14 | US_ITS ---
Limited ABDOMINAL ULTRASOUND (Doppler ultrasound interrogation techniques used as needed for this exa m.) Ordering provider: Christos Arango MD History: . Elevated LFT . Comparison: None. FINDINGS: PANCREAS: Not demonstrated. PORTAL VEIN: Hepatopedal flow demonstrated. LIVER: Normal size and increased echogenicity.. No focal hepatic lesions or perihepatic fluid collect ions are identified. BILIARY DUCTS: No intra or extrahepatic biliary dilation. Common bile duct measures 4 mm in diameter which is normal for patient's age. GALLBLADDER: Normal. No stones, sludge, gallbladder wall thickening or pericholecystic fluid. Negati ve sonographic Vázquez's sign. IVC: Normal. Abdominal Aorta: Normal. FREE FLUID: None visualized within the upper abdomen. IMPRESSION: Fat infiltration. Otherwise, normal limited abdominal ultrasound. Reviewed, dictated and finalized at location A.
--- NOTE | ~2024-11-14 | CT_ITS ---
CLINICAL INDICATION: Abdominal pain, nausea and diarrhea COMPARISON: 10/15/2024 and dating back to 02/23/2024. TECHNIQUE: Multiple contiguous axial images of the abdomen and pelvis were performed following the ad ministration of with 100 mL Omnipaque-350 intravenous contrast The dose-length product (DLP) was 389.61 mGy-cm. Automated exposure control and iterative reconstruction technique were employed. FINDINGS/OBSERVATIONS: Visualized lower thorax: The bilateral lung bases are clear. The heart is of normal size, without pericardial effusion. Small hiatal hernia is present. Liver: The liver demonstrates homogeneously decreased attenuation and is significantly enlarged measuring 21 cm in longitudinal dimension. Focal fatty sparing is identified within segment 4. Gallbladder and biliary system: The gallbladder is only minimally distended, and otherwise unremarkable. Pancreas: Global enlargement of the pancreas which enhances homogeneously without ductal dilatation. Significant peripancreatic inflammatory change is identified, consistent with pancreatitis with free fluid in the lesser sac and surrounding the second and third portions of the duodenum. Spleen: The spleen enhances homogeneously and is not enlarged measuring 8 cm in longitudinal dimension. Kidneys: The bilateral kidneys enhance symmetrically without hydronephrosis or renal calculi. Adrenal glands: Unremarkable. Gastrointestinal tract: Edematous mural thickening within the duodenum, likely secondary to the pancreatic inflammation. Remaining bowel loops are unremarkable. Appendix: The air-filled appendix is of normal caliber (axial series, images 107 through 110). Vasculature: Unremarkable. Lymph nodes: No pathologically enlarged or morphologically suspicious lymph nodes within the retroperitoneum or at the root of the mesentery. Pelvic structures: The bladder is only minimally distended, with mural thickening likely related to underdistention. The prostate gland is not enlarged. Body wall and musculoskeletal: Small fat-containing umbilical hernia. No significant degenerative disease within the lower thoracic or lumbosacral spine. IMPRESSION: Acute interstitial edematous pancreatitis, as detailed above. Necrosis absent. No well-circumscribed peripancreatic fluid collections. No additional findings suggesting acute hemorrhage. Reviewed, dictated and finalized at location A.
--- OUTSIDE RECORDS SUMMARY | 2024-11-14 15:53 | XMS_ITS | CONTINUITY OF CARE DOCUMENT ---
Author Name nealfemi sapphire Address Unknown Organization [facility] Address [address] [place] [address] Phone [phone] Care Team Providers Care Mechanical Drawing Teacher Name Role Phone Isiah SHEPHERD, Renee Unavailable [phone] ZAFAR SHEPHERD, ARABELLA Balderas Unavailable ZAFAR SHEPHERD, ARABELLA Balderas Unavailable [phone] INS[employer]ANCE [employer] Payer name Policy type / Coverage type [place] [employer] Medicaid [id number]
--- OUTSIDE RECORDS SUMMARY | 2024-11-14 15:53 | XMS_ITS | Patient Health Record ---
Author Organization [facility] Address [address] [place] [address] Care Team Providers Care Cigar Head Stringer Name Role Phone Erick Angel Primary Care Provider [employer], [facility] Unavailable U navailable Forrestnuriamercedez Patricia Unavailable [phone] Allergies No Known Allergies Reason For Referral [...] Additional Findings: Tobacco User e-Cigarette Section Notes: Reviewed PDMP Reviewed PDMP PRESCRIPTION # FILLED WRITTEN DRUG LABEL QTY DAYS STRENGTH MME PRESCRIBER PHARMACY REFILL NO. REFILLS STATE 10/06/2022 10/06/2022 chlordiazePOXIDE HCL 36.0 9 25 MG NA Cheng Jo Md [id number] [place], [place] NA 0 [place] 1 [id number] 06/15/2022 06/15/2022 HYDROcodone BITARTRATE-ACETAMINOPHEN 10.0 2 325 MG-5 MG 25 Shresth PRESCRIPTION # FILLED WRITTEN DRUG LABEL QTY DAYS STRENGTH MME PRESCRIBER PHARMACY REFILL NO. REFILLS STATE 10/06/2022 10/06/2022 chlordiazePOXIDE HCL 36.0 9 25 MG NA Cheng Jo Md [id number] [place], [place] NA 0 [place] 1 [id number] 06/15/2022 06/15/2022 HYDROcodone BITARTRATE-ACETAMINOPHEN 10.0 2 325 MG-5 MG 25 Shresth PRESCRIPTION # FILLED WRITTEN DRUG LABEL QTY DAYS STRENGTH MME PRESCRIBER PHARMACY REFILL NO. REFILLS STATE 10/06/2022 10/06/2022 chlordiazePOXIDE HCL 36.0 9 25 MG NA Cheng Jo Md [id number] [place], [place] NA 0 [place] 1 [id number] 06/15/2022 06/15/2022 ACETAMINOPHEN 325 MG / HYDROcodone BITARTRATE 5 MG ORAL TABLET 10.0 2 5.0 M Problems Problem Type SNOMED Code ICD Code Onset Dates Problem Status W/U Status Risk Notes Problem Depression (554895530) Depression (F32.9) Active confirmed Problem Anxiety (78543823) Anxiety (F41.9) Active confirmed Encounters Encounter Location Date Provider Diagnosis [address] [place] [address] 02/15/2024 Erick Angel Plan Of Treatment No Information Insurance Providers Payer Name Payer Address Payer Phone Subscriber Number Group Number Insured Name Patient Relationship to Insured Coverage Start Date Coverage End Date [address] [phone] [id number] NapoleonAlexis stepheneal Self - patient is the insured 3 [employer] [address] [place] [address] [id number] Alexis Bendereal Self - patient is the insured 3 Medical (General) History Medical History History ICD Code Substance use disorder Surgical History Surgery Date(Month/Year) Left femur/hermann Hospitalization History Reason Date(Month/Year) [facility]- [facility] 2022
--- OUTSIDE RECORDS SUMMARY | 2024-11-14 15:53 | XMS_ITS ---
Author Organization [facility] Address [address] [place] [address] Care Team Providers Care Miner Pick Name Role Phone Erick Angel Primary Care Provider [facility], [facility] Unavailable U navailable Patricia Hartmann Unavailable [phone] REASON FOR VISIT Last seen 08/16, transfer from [facility] Social History Sex Assigned At : Social History Observation Description Sex Assigned At Male Encounters Encounter Location Date Provider Diagnosis [address] [place] [address] 02/15/2024 Patricia Hartmann Plan Of Treatment No Information Progress Notes * Pancho ROBBINS JDOB: [birth year] (29 yo M)Acc No.[id number]:02/15/2024 UNLOCKED PROGRESS NOTE Patient: Roxana CORTES Pancho Patterson Provider: Roxana Hartmann, DNP, PIANO CASE MAKER, PMHNP- :1995 A ge:28 Y S ex:Male Date:02/15/2024 Address:[address] [place] [id number] Pcp:Erick Angel Check In:08:22 AM TELEVISION REPAIRER Subjective: * Chief Complaints: * 1 . Last seen 08/16, transfer from [facility]. * Medical History: Objective: * Vitals: Assessment: Plan: * Treatment: * * Electronic signature of Iris Oliveros [id number] on 11/14/2024 at 03:53 PM CDT Sign off status: Pending * Provider: Roxana Hartmann DNP, PIANO CASE MAKER, PMHNP-BC Date: 0 02/15/2024 Generated for Printing/Faxing/eTransmitting on: 0 11/14/2024 03:53 PM CDT
--- OUTSIDE RECORDS SUMMARY | 2024-11-14 15:53 | XMS_ITS ---
Author Organization [facility] Address [address] [place] [address] Care Team Providers Care Airline Station Agent Name Role Phone Erick Angel Primary Care Provider [phone] [facility], [facility] Unavailable U navailable [place] Child Unavailable [phone] REASON FOR VISIT r/s from 09/27--follow up [...] Male Encounters Encounter Location Date Provider Diagnosis [facility] [address] [place] [address] 10/01/2023 [place] Child Plan Of Treatment No Information Progress Notes * Pancho ROBBINS JDOB: [birth year] (29 yo M)Acc No.[id number]:10/01/2023 UNLOCKED PROGRESS NOTE Patient: Pancho MANCILLA Provider: Marga Child, MSN, JEWEL SUPERVISOR-BC, PMHNP-BC :1995 A ge:27 Y S ex:Male Date:10/01/2023 Address:[address] [place], [place] [address] Pcp:Erick Angel Subjective: * Chief Complaints: * [...] * Electronic signature of [place] Child , [id number] on 11/14/2024 at 03:53 PM CDT Sign off status: Pending * Provider: Marga Child, MSN, JEWEL SUPERVISOR-BC, PMHNP-BC Date: 0 10/01/2023 Generated for Carlos mcallister/Telly/Aprilitting on: 0 11/14/2024 03:53 PM CDT
--- OUTSIDE RECORDS SUMMARY | 2024-11-14 15:53 | XMS_ITS ---
Author Organization [facility] Address [address] [place] [address] Care Team Providers Care Professor Of Education Name Role Phone Erick Angel Primary Care Provider [phone] [facility], [facility] Unavailable U navailable [place] Child Unavailable [phone] REASON FOR VISIT 1 Month Psych F/U & Med Refill Social History Sex Assigned At : Social History Observation Description Sex Assigned At Male Encounters Encounter Location Date Provider Diagnosis [address] [address] 09/28/2023 [place] Child Plan Of Treatment No Information Progress Notes * Pancho ROBBINS JDOB: [birth year] (29 yo M)Acc No.[id number]:09/28/2023 UNLOCKED PROGRESS NOTE Patient: Alexis MANCILLAsulma Patterson Provider: Marga Child, MSN, TRACK RIDER-BC, PMHNP-BC :1995 A ge:27 Y S ex:Male Date:09/28/2023 Address: [facility] Pcp:Erick Angel Subjective: * Chief Complaints: * 1 . 1 Month Psych F/U & Med Refill. * Medical History: Objective: * Vitals: Assessment: Plan: * Treatment: * * Electronic signature of [place] Child [id number] on 11/14/2024 at 03:53 PM CDT Sign off status: Pending * Provider: Marga Child, MSN, TRACK RIDER-BC, PMHNP-BC Date: 0 09/28/2023 Generated for Carlos mcallister/Telly/Jignesh on: 0 11/14/2024 03:53 PM CDT
--- NOTE | 2024-11-14 16:59 | ED.ABDPAIN ---
HPI - Abdominal Pain General Chief Complaint: Abdominal Pain <Mayra Mcgee PA-C - Last Filed: 11/14/24 17:06> Stated Complaint: abd pain, N/V, I have pancreatitis <Mayra Mcgee PA-C - Last Filed: 11/14/24 17:06> Time Seen by Provider: 11/14/24 16:59 <Mayra Mcgee PA-C - Last Filed: 11/14/24 17:06> Focused HPI: Patient is a 29 y/o male who presents to the ED with c/o epigastric pain. Patient reports he began having epigastric abdominal pain yesterday. Took ibuprofen yesterday without improvement. Hx of pancreatitis, states last episode was 1 month ago. States current pain feels similar. Patient is a daily drinker. He states he drinks a sleeve of shooters per day (10-12). Last drink was 3 hours ago. Reports Hx of WD sx's and seizures in the past. Denies history of gallbladder issues. Reports diarrhea for the past 2 days, nausea. Denies vomiting. Denies fevers. GENERAL: Well-appearing, well-nourished, and in no acute distress. HEAD: Normocephalic, atraumatic. CHEST: Clear to auscultation. ?No respiratory distress. HEART: Regular rate and rhythm.? ABD: mild TTP in epigastric region. No rebound. Normoactive BS NEURO: ?Alert and oriented x3. Patient screened in triage and initial orders placed.? ?Additional care and disposition to be based upon?diagnostic testing and treatment. <Mayra Mcgee PA-C - Last Filed: 11/14/24 17:06> Source: patient <Mayra Mcgee PA-C - Last Filed: 11/14/24 17:06> Mode of arrival: ambulatory <Mayra Mcgee PA-C - Last Filed: 11/14/24 17:06> Limitations: no limitations <JOSE J Gagnon Last Filed: 11/14/24 17:06> History of Present Illness HPI narrative: agree with MSE <Nicolette Andrade MD - Last Filed: 11/14/24 22:02> Related Data Home Medications: Home Medications ?Medication ?Instructions ?Recorded ?Confirmed ?Last Taken ?Type No Home Medications 10/15/24 10/15/24 Unknown History <JOSE J Gagnon Last Filed: 11/14/24 17:06> Allergies/Adverse Reactions: Allergies Allergy/AdvReac Type Severity Reaction Status Date / Time No Known Allergies Allergy Verified 10/15/24 13:41 <Mayra Mcgee PA-C - Last Filed: 11/14/24 17:06> Review of Systems Review of Systems: All systems reviewed & are unremarkable except as noted in HPI and below <JOSE J Talbot Last Filed: 11/14/24 21:27> [facility] Past Medical History Medical History: Medical History Alcohol abuse Pancreatitis <JOSE J Gagnon Last Filed: 11/14/24 17:06> Surgical History Surgical History: Surgical History History of open reduction and internal fixation (ORIF) procedure Left femur. <Mayra Mcgee PA-C - Last Filed: 11/14/24 17:06> Family History Family History: Family History Mother Cerebrovascular accident Hypertension <JOSE J Gagnon Last Filed: 11/14/24 17:06> Social History Social History: Social History Social History: Surrogate medical decision maker: Ember Blackburnantelmo, friend. Code status: Full code. Smoking status: Current every day smoker Alcohol intake: current Drinks per week: 6 Alcohol use details: A 5th of alcohol every 2 days. Substance use: current Substance use type: marijuana Other substance usage details: 08/2024 Last use: 02/22/24 Do You Feel Safe in your Home?: Yes Lack of Transportation: No Lack of Food: Never True Current Housing: I Have Housing Concerned About Future Housing: No Difficulty Paying Gas/Electric Bills: No Difficulty Paying for Meds: No Currently Unemployed: YES Education: Decline to Answer Difficulty w/ Childcare or Family Care: No Spiritual care concerns: No <Mayra Mcgee PA-C - Last Filed: 11/14/24 17:06> Exam Narrative: GENERAL: Well-appearing, well-nourished, and in no acute distress. HEAD: Normocephalic, atraumatic. EYES: EOMI. CHEST: Clear to auscultation. No respiratory distress. No wheezes rales or rhonchi HEART: Regular rate and rhythm. No murmur heard. Normal peripheral pulses. ABDOMEN: Soft, nondistended, normal active bowel sounds. Mild tenderness to palpation in the epigastrium, without guarding EXTREMITIES: Normal range of motion. No edema. SKIN: Warm, dry, no rash. NEURO: No focal deficits. Alert and oriented x3. PSYCH: Normal mood and affect <Galina Chu PA-C - Last Filed: 11/14/24 21:27> Course Course Emergency Course: patient updated on workup and need for admission <Galina Chu PA-C - Last Filed: 11/14/24 21:27> MANAGER ACCESS/PA Physician Supervision I agree with midlevel documentation; I performed the medical decision making component of this evaluation. <Nicolette Andrade MD - Last Filed: 11/14/24 22:02> Consultations Consultation #1: Spoke with hospitalist about patient and workup who accepts admission <Galina Chu PA-C - Last Filed: 11/14/24 21:27> Date: 11/14/24 <Galina Chu PA-C - Last Filed: 11/14/24 21:27> Vital Signs Vital signs: Vital Signs Temperature 97.9 F 11/14/24 14:59 Pulse Rate 96 11/14/24 14:59 Respiratory Rate 18 11/14/24 14:59 Blood Pressure 144/98 H 11/14/24 14:59 Pulse Oximetry 98 11/14/24 14:59 Oxygen Delivery Room Air 11/14/24 14:59 Temperature 98.1 F 11/14/24 17:13 Pulse Rate 85 11/14/24 20:31 Respiratory Rate 18 11/14/24 19:30 Blood Pressure 146/97 H 11/14/24 21:16 Pulse Oximetry 96 11/14/24 21:16 Oxygen Delivery Room Air 11/14/24 17:13 <Mayra Mcgee PA-C - Last Filed: 11/14/24 17:06> Vital Signs Temperature 97.9 F 11/14/24 14:59 Pulse Rate 96 11/14/24 14:59 Respiratory Rate 18 11/14/24 14:59 Blood Pressure 144/98 H 11/14/24 14:59 Pulse Oximetry 98 11/14/24 14:59 Oxygen Delivery Room Air 11/14/24 14:59 Temperature 98.1 F 11/14/24 17:13 Pulse Rate 85 11/14/24 20:31 Respiratory Rate 18 11/14/24 19:30 Blood Pressure 146/97 H 11/14/24 21:16 Pulse Oximetry 96 11/14/24 21:16 Oxygen Delivery Room Air 11/14/24 17:13 <Galina Chu PA-C - Last Filed: 11/14/24 21:27> Vital Signs Temperature 97.9 F 11/14/24 14:59 Pulse Rate 96 11/14/24 14:59 Respiratory Rate 18 11/14/24 14:59 Blood Pressure 144/98 H 11/14/24 14:59 Pulse Oximetry 98 11/14/24 14:59 Oxygen Delivery Room Air 11/14/24 14:59 Temperature 98.1 F 11/14/24 17:13 Pulse Rate 85 11/14/24 20:31 Respiratory Rate 18 11/14/24 19:30 Blood Pressure 146/97 H 11/14/24 21:16 Pulse Oximetry 96 11/14/24 21:16 Oxygen Delivery Room Air 11/14/24 17:13 <Nicolette Andrade MD - Last Filed: 11/14/24 22:02> MDM - Abdominal Pain MDM Narrative Medical decision making narrative: MSE by SKY in triage. <JOSE J Gagnon Last Filed: 11/14/24 17:06> MSE by SKY in triage. Patient presents to the emergency department for epigastric abdominal pain, history of pancreatitis, alcohol abuse. He is afebrile and nontoxic appearing. His vitals are stable. Cbc without leukocytosis. Metabolic panel with mild hypokalemia, magnesium is normal. Lipase is 427. Urine without evidence of infection. Alcohol level is 128. CT abdomen pelvis shows acute interstitial edematous pancreatitis. patient updated on workup and need for admission. Spoke with hospitalist about patient and workup who accepts admission <Galina Chu PA-C - Last Filed: 11/14/24 21:27> Differential Diagnosis Differential diagnosis: Likely gastroenteritis, pancreatitis and other (biliary colic) <Galina Chu PA-C - Last Filed: 11/14/24 21:27> Lab Data Attestation: I reviewed the patient's lab results. <Galina Chu PA-C - Last Filed: 11/14/24 21:27> Result diagrams: 11/14/24 17:21 11/14/24 17:21 <JOSE J Gagnon Last Filed: 11/14/24 17:06> Labs: Lab Results 11/14/24 11/14/24 Range/Units 17:21 18:47 WBC 9.5 (4.5-10.0) K/mm3 RBC 5.15 (4.6-6.20) M/mm3 Hgb 15.9 (14.0-18.0) g/dL Hct 46.4 (42.0-52.0) % MCV 90.1 (80-100) fl MCH 30.9 (26-34) pg MCHC 34.3 (32-36) g/dl RDW 13.9 (11.5-14.5) % Plt Count 229 D (150-375) k/mm3 MPV 10.8 H (7.4-10.4) fl Immature Gran % (Auto) 0.6 H (0-0.5) % Neut % (Auto) 57.6 (45.5-73.1) % Lymph % (Auto) 29.4 (18.3-44.2) % [place] % (Auto) 9.8 H (2.6-8.5) % Eos % (Auto) 2.1 (0-4.4) % Baso % (Auto) 0.5 (0.2-1.2) % Lymph # (Auto) 2.79 (0.9-3.2) K/mm3 [place] # (Auto) 0.9 H (0.1-0.6) K/mm3 Eos # (Auto) 0.2 (0-0.3) K/mm3 Baso # (Auto) 0.1 (0.0-0.1) K/mm3 Abs Immat Gran (auto) 0.06 H (0.00-0.031) K/mm3 Absolute Neuts (auto) 5.5 (1.3-6.7) K/mm3 Absolute Nucleated RBC 0.000 (0.0-0.012) K/mm3 Nucleated RBC % 0.0 (0.0-0.2) % Sodium 139 (137-145) mmol/L Potassium 3.3 L (3.4-5.0) mmol/L Chloride 101 (98-107) mmol/L Carbon Dioxide 27 (22-30) mmol/L Anion Gap 11 (4-12) mmol/L BUN 5 L (9-20) mg/dL Creatinine 0.73 (0.7-1.3) mg/dL Estim Creat Clear Calc 139 ml/min Estimated GFR > 60 (59 - ) Glucose 125 H (65-110) mg/dL Calcium 9.1 (8.4-10.2) mg/dL Magnesium 2.1 (1.6-2.3) mg/dL Total Bilirubin 1.1 (0.2-1.3) mg/dL AST 297 H (17-59) U/L ALT 362 H (6-50) U/L Alkaline Phosphatase 141 H (38-126) U/L Total Protein 8.6 H (6.3-8.2) g/dL Albumin 4.9 (3.5-5.1) g/dL Lipase 427 H (23-300) U/L Urine Color Yellow (Yellow) Urine Appearance Clear (Clear) Urine pH 6.5 (5.0-9.0) Ur Specific [place] > 1.045 H (1.001-1.035) Urine Protein Negative (Negative) mg/dL Urine Glucose (UA) Negative (Negative) mg/dL Urine Ketones Negative (Negative) mg/dL Ur Blood (Man) Negative (Negative) Urine Nitrate Negative (Negative) Urine Bilirubin Negative (Negative) Urine Urobilinogen 0.2 (<2.0) mg/dL Leukocyte Esterase Rfl Negative (Negative) KATHI/UL Ethyl Alcohol 128 (<10) mg/dL <Mayra Mcgee PA-C - Last Filed: 11/14/24 17:06> Lab Results 11/14/24 11/14/24 Range/Units 17:21 18:47 WBC 9.5 (4.5-10.0) K/mm3 RBC 5.15 (4.6-6.20) M/mm3 Hgb 15.9 (14.0-18.0) g/dL Hct 46.4 (42.0-52.0) % MCV 90.1 (80-100) fl MCH 30.9 (26-34) pg MCHC 34.3 (32-36) g/dl RDW 13.9 (11.5-14.5) % Plt Count 229 D (150-375) k/mm3 MPV 10.8 H (7.4-10.4) fl Immature Gran % (Auto) 0.6 H (0-0.5) % Neut % (Auto) 57.6 (45.5-73.1) % Lymph % (Auto) 29.4 (18.3-44.2) % [place] % (Auto) 9.8 H (2.6-8.5) % Eos % (Auto) 2.1 (0-4.4) % Baso % (Auto) 0.5 (0.2-1.2) % Lymph # (Auto) 2.79 (0.9-3.2) K/mm3 [place] # (Auto) 0.9 H (0.1-0.6) K/mm3 Eos # (Auto) 0.2 (0-0.3) K/mm3 Baso # (Auto) 0.1 (0.0-0.1) K/mm3 Abs Immat Gran (auto) 0.06 H (0.00-0.031) K/mm3 Absolute Neuts (auto) 5.5 (1.3-6.7) K/mm3 Absolute Nucleated RBC 0.000 (0.0-0.012) K/mm3 Nucleated RBC % 0.0 (0.0-0.2) % Sodium 139 (137-145) mmol/L Potassium 3.3 L (3.4-5.0) mmol/L Chloride 101 (98-107) mmol/L Carbon Dioxide 27 (22-30) mmol/L Anion Gap 11 (4-12) mmol/L BUN 5 L (9-20) mg/dL Creatinine 0.73 (0.7-1.3) mg/dL Estim Creat Clear Calc 139 ml/min Estimated GFR > 60 (59 - ) Glucose 125 H (65-110) mg/dL Calcium 9.1 (8.4-10.2) mg/dL Magnesium 2.1 (1.6-2.3) mg/dL Total Bilirubin 1.1 (0.2-1.3) mg/dL AST 297 H (17-59) U/L ALT 362 H (6-50) U/L Alkaline Phosphatase 141 H (38-126) U/L Total Protein 8.6 H (6.3-8.2) g/dL Albumin 4.9 (3.5-5.1) g/dL Lipase 427 H (23-300) U/L Urine Color Yellow (Yellow) Urine Appearance Clear (Clear) Urine pH 6.5 (5.0-9.0) Ur Specific [place] > 1.045 H (1.001-1.035) Urine Protein Negative (Negative) mg/dL Urine Glucose (UA) Negative (Negative) mg/dL Urine Ketones Negative (Negative) mg/dL Ur Blood (Man) Negative (Negative) Urine Nitrate Negative (Negative) Urine Bilirubin Negative (Negative) Urine Urobilinogen 0.2 (<2.0) mg/dL Leukocyte Esterase Rfl Negative (Negative) KATHI/UL Ethyl Alcohol 128 (<10) mg/dL <Galina Chu PA-C - Last Filed: 11/14/24 21:27> Lab Results 11/14/24 11/14/24 Range/Units 17:21 18:47 WBC 9.5 (4.5-10.0) K/mm3 RBC 5.15 (4.6-6.20) M/mm3 Hgb 15.9 (14.0-18.0) g/dL Hct 46.4 (42.0-52.0) % MCV 90.1 (80-100) fl MCH 30.9 (26-34) pg MCHC 34.3 (32-36) g/dl RDW 13.9 (11.5-14.5) % Plt Count 229 D (150-375) k/mm3 MPV 10.8 H (7.4-10.4) fl Immature Gran % (Auto) 0.6 H (0-0.5) % Neut % (Auto) 57.6 (45.5-73.1) % Lymph % (Auto) 29.4 (18.3-44.2) % [place] % (Auto) 9.8 H (2.6-8.5) % Eos % (Auto) 2.1 (0-4.4) % Baso % (Auto) 0.5 (0.2-1.2) % Lymph # (Auto) 2.79 (0.9-3.2) K/mm3 [place] # (Auto) 0.9 H (0.1-0.6) K/mm3 Eos # (Auto) 0.2 (0-0.3) K/mm3 Baso # (Auto) 0.1 (0.0-0.1) K/mm3 Abs Immat Gran (auto) 0.06 H (0.00-0.031) K/mm3 Absolute Neuts (auto) 5.5 (1.3-6.7) K/mm3 Absolute Nucleated RBC 0.000 (0.0-0.012) K/mm3 Nucleated RBC % 0.0 (0.0-0.2) % Sodium 139 (137-145) mmol/L Potassium 3.3 L (3.4-5.0) mmol/L Chloride 101 (98-107) mmol/L Carbon Dioxide 27 (22-30) mmol/L Anion Gap 11 (4-12) mmol/L BUN 5 L (9-20) mg/dL Creatinine 0.73 (0.7-1.3) mg/dL Estim Creat Clear Calc 139 ml/min Estimated GFR > 60 (59 - ) Glucose 125 H (65-110) mg/dL Calcium 9.1 (8.4-10.2) mg/dL Magnesium 2.1 (1.6-2.3) mg/dL Total Bilirubin 1.1 (0.2-1.3) mg/dL AST 297 H (17-59) U/L ALT 362 H (6-50) U/L Alkaline Phosphatase 141 H (38-126) U/L Total Protein 8.6 H (6.3-8.2) g/dL Albumin 4.9 (3.5-5.1) g/dL Lipase 427 H (23-300) U/L Urine Color Yellow (Yellow) Urine Appearance Clear (Clear) Urine pH 6.5 (5.0-9.0) Ur Specific [place] > 1.045 H (1.001-1.035) Urine Protein Negative (Negative) mg/dL Urine Glucose (UA) Negative (Negative) mg/dL Urine Ketones Negative (Negative) mg/dL Ur Blood (Man) Negative (Negative) Urine Nitrate Negative (Negative) Urine Bilirubin Negative (Negative) Urine Urobilinogen 0.2 (<2.0) mg/dL Leukocyte Esterase Rfl Negative (Negative) KATHI/UL Ethyl Alcohol 128 (<10) mg/dL <Nicolette Andrade MD - Last Filed: 11/14/24 22:02> Imaging Data Radiologist's impression: ITS Impressions Abdomen/Pelvis CT 11/14/24 18:39 IMPRESSION: Acute interstitial edematous pancreatitis, as detailed above. Necrosis absent. No well-circumscribed peripancreatic fluid collections. No additional findings suggesting acute hemorrhage. <Mayra Mcgee PA-C - Last Filed: 11/14/24 17:06> ITS Impressions Abdomen/Pelvis CT 11/14/24 18:39 IMPRESSION: Acute interstitial edematous pancreatitis, as detailed above. Necrosis absent. No well-circumscribed peripancreatic fluid collections. No additional findings suggesting acute hemorrhage. <Galina Chu PA-C - Last Filed: 11/14/24 21:27> ITS Impressions Abdomen/Pelvis CT 11/14/24 18:39 IMPRESSION: Acute interstitial edematous pancreatitis, as detailed above. Necrosis absent. No well-circumscribed peripancreatic fluid collections. No additional findings suggesting acute hemorrhage. <Nicolette Andrade MD - Last Filed: 11/14/24 22:02> Critical Care Time Critical Care Time Critical Care Time: No <Galina Chu PA-C - Last Filed: 11/14/24 21:27> Discharge Plan Discharge Clinical Impression: Transaminitis Pancreatitis Qualifiers: Chronicity: acute Pancreatitis type: alcohol induced Acute pancreatitis complication: no infection or necrosis Qualified Code(s): K85.20 - Alcohol induced acute pancreatitis without necrosis or infection Alcohol dependence Qualifiers: Substance use status: unspecified alcohol-induced disorder Qualified Code(s): F10.29 - Alcohol dependence with unspecified alcohol-induced disorder <Mayra Mcgee PA-C - Last Filed: 11/14/24 17:06> Patient Disposition: Still a Patient <Mayra Mcgee PA-C - Last Filed: 11/14/24 17:06> Condition: Stable <Mayra Mcgee PA-C - Last Filed: 11/14/24 17:06>
[2024-11-14 17:28] LABS: Basophils Absolute Auto 0.1 K/mm3 (0.0-0.1); Basophils Percent Auto 0.5 % (0.2-1.2); Eosinophils Absolute Auto 0.2 K/mm3 (0-0.3); Eosinophils Percent Auto 2.1 % (0-4.4); Hematocrit 46.4 % (42.0-52.0); Hemoglobin 15.9 g/dL (14.0-18.0); Immature Granulocyte Absolute 0.06 K/mm3 (0.00-0.031); Immature Granulocyte Percent A 0.6 % (0-0.5); Lymphocytes Absolute Auto 2.79 K/mm3 (0.9-3.2); Lymphocytes Percent Auto 29.4 % (18.3-44.2); Mean Corpuscular HGB Conc 34.3 g/dl (32-36); Mean Corpuscular Hemoglobin 30.9 pg (26-34); Mean Corpuscular Volume 90.1 fl (80-100); Mean Platelet Volume 10.8 fl (7.4-10.4); Monocytes Absolute Auto 0.9 K/mm3 (0.1-0.6); Monocytes Percent Auto 9.8 % (2.6-8.5); Neutrophils Absolute Auto 5.5 K/mm3 (1.3-6.7); Neutrophils Percent Auto 57.6 % (45.5-73.1); Platelet Count Result 229 k/mm3 (150-375); Red Blood Count 5.15 M/mm3 (4.6-6.20); Red Cell Distribution Width 13.9 % (11.5-14.5); White Blood Count 9.5 K/mm3 (4.5-10.0)
[2024-11-14] MEDS: ONDANSETRON INJ 4 MG/2 ML VIAL IV PUSH ×2 (17:46→23:01)
[2024-11-14] MEDS: SODIUM CHLORIDE 0.9% IV 1,000 ML 999 ML IV CONT (17:46)
[2024-11-14] MEDS: PANTOPRAZOLE SODIUM IV 40 MG VIAL IV PUSH (17:47)
[2024-11-14 17:49] LABS: Alanine Aminotransferase 362 U/L (6-50); Albumin Level 4.9 g/dL (3.5-5.1); Alkaline Phosphatase 141 U/L (38-126); Anion Gap 11 mmol/L (4-12); Aspartate Amino Transferase 297 U/L (17-59); Bilirubin,Total 1.1 mg/dL (0.2-1.3); Blood Urea Nitrogen 5 mg/dL (9-20); Calcium 9.1 mg/dL (8.4-10.2); Carbon Dioxide 27 mmol/L (22-30); Chloride 101 mmol/L (98-107); Estimated CRCL calculation 139 ml/min; Estimated Glomerular Filt Rate > 60; Glucose 125 mg/dL (65-110); Lipase 427 U/L (23-300); Potassium 3.3 mmol/L (3.4-5.0); Sodium 139 mmol/L (137-145); Total Protein 8.6 g/dL (6.3-8.2)
[2024-11-14 17:50] LABS: Ethanol 128 mg/dL (<10)
[2024-11-14] MEDS: MORPHINE SULFATE (*CRX) 4 MG/ML INJ IV PUSH ×3 (17:52→23:01)
--- OUTSIDE RECORDS SUMMARY | 2024-11-14 17:52 | XMS_ITS | Data Portability ---
Author Organization [facility] Address [address] [place] [address] Assessment No assessment recorded. Plan of Treatment Reminders Order Date Submit Date Provider Last Modified By Organization Details Last Modified Time Details Appointments None recorded. Lab CT + NG + TV, DNA, urine/swab 2019 020 [facility], [address] [place] [address], [address], [place], [address], 0 20:07:18 Referral None recorded. Procedures None recorded. Surgeries None recorded. Imaging None recorded. Medication Orders azithromyc in 500 mg tablet 2019 020 [id number], [address] [place], [place], [id number], 0 10:19:40 Patient TargetsNo targets recorded. Patient Instructions Encounter Date Encounter Id Patient Instructions Last Modified By Organization Details Last Modified Time 09/16/2019 [id number] cocaine use: car e instructions Not available 09/16/2019 10:19:36 high blood pressure: care instructions Not available 09/16/2019 10:19:35 dash diet: care instructions Not available 09/16/2019 10:19:36 chlamydia: care instructions Not available 09/16/2019 10:19:35 Reason for Referral None Reported. Results Created Date Observation Date Name Description Value Unit Range Abnormal Flag Note LastModifiedBy Organization Detail LastModifiedTime 09/16/19 20 09/19/2019 CT + NG + TV, DNA, urine /swab chlamydia by CONRAD Negati ve negati ve Not Available [facility] ([facility]) [address] [facility], [place], [address], 09/19/2019 20:07:18 09/16/19 20 09/19/2019 CT + NG + TV, DNA, urine /swab gonococcus by CONRAD Negati ve negati ve Not Available [facility] ([facility]) [address] [facility], [place], [address], 09/19/2019 20:07:18 09/16/19 20 09/19/2019 CT + NG + TV, DNA, urine /swab trich vag by CONRAD Negati ve negati ve Not Available [facility] ([facility]) [address] [facility], [place], [address], 09/19/2019 20:07:18 Result Notes None recorded. Problems No Known Problems Procedures Surgical History Date Name Laterality Status Provider Name and Address Organization Details Recorded Time 5 procedure on femur completed Sara Franklin MA [place] - [facility] 09/16/2019 10:06:28 Imaging Results None recorded. Procedure Notes None recorded. Medical Equipment None Reported. 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 active Not Available Not Available No t Available hydrocodone 5 mg-acetaminop hen 325 mg tablet TAKE 1 TABLET BY MOUTH EVERY 6 HOURS NEEDED active Not Available Not Available No t Available thiamine HCl (vitamin B1) 100 mg tablet TAKE 1 TABLET BY MOUTH EVERY MORNING active Not Available Not Available No t Available pantoprazole 40 mg tablet,delaye d release TAKE 1 TABLET BY MOUTH EVERY MORNING active Not Available Not Available No t Available levofloxacin 500 mg tablet TAKE 1 TABLET 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 FOR 4 DOSES active Not Available Not Available No t Available naproxen 500 mg tablet TAKE 1 TABLET BY MOUTH EVERY 12 HOURS WITH FOOD FOR 8 TO 10 DAYS active Not Available Not Available N ot Available oxycodone 5 mg tablet TAKE 1 TABLET (5 MG TOTAL) BY MOUTH EVERY 4 (FOUR) HOURS NEEDED FOR PAIN FOR UP TO 7 DAYS active Not Available Not Available No t Available azithromycin 500 mg tablet TAKE 2 TABLETS AT ONCE SINGLE DOSE 2019 active Not Available Not Available Not Avai lable Vitals Date Recorded Body weight Body mass index (BMI) Body height Heart rate Body temperature Oxygen saturation Oxygen saturation in Arterial blood by Pulse oximetry Systolic blood pressure Diastolic blood pressure Provider Name and Address Organization Details Last Updated DateTime 0 04035.4 g 26.3 kg/m2 177.8 cm 112 /min 98.9 [degF] 97 % 97 % 132 mm[Hg] 94 mm[Hg] Sara Franklin MA [place] - [facility] 0 10:09:32 Social History Question Answer Notes LastModified by Organizat ion Details LastModified Time Tobacco Smoking Status Never Smoker Not Available [facility] 04/03/2020 03:39:29 Do You Have An Advance Directive? No [id number] Information not available 04/03/2020 What Is Your Level Of Caffeine Consumption? Heavy [id number] Information not available 04/03/2020 How Much Tobacco Do You Chew? None [id number] Information not available 04/03/2020 Have You Been To An Area Known To Be High Risk For COVID-19? No [id number] Information not available 04/03/2020 What Type Of Diet Are You Following? REGULAR [id number] Information not available 04/03/2020 Which Illicit Or Recreational Drugs Have You Used? Cocaine [id number] Information not available 04/03/2020 Education 10 Information no t available 09/16/2019 Are There Any Guns Present In Your Home? No [id number] Information not available 04/03/2020 Hard Of Hearing Or Deaf In One Or Both Ears? No Information not available 09/16/2019 Legally Blind In One Or Both Eyes? No Information no t available 09/16/2019 Marital Status Single Informatio n not available 09/16/2019 What Was The Date Of Your Most Recent Tobacco Screening? 09/16/2019 [id number] Information not available 04/03/2020 Performs Monthly Self-breast Exam? No Information no t available 09/16/2019 Seat Belts Used Routinely Yes Information not available 09/16/2019 Smoke Alarm In Home Yes Information not available 09/16/2019 At What Age Did You Start Smoking Tobacco? 22 [id number] Information not available 04/03/2020 General Stress Level Medium Information not available 09/16/2019 Do You Use Sunscreen Routinely? No [id number] Information not available 04/03/2020 On What Date Was Tobacco Cessation Counseling Provided? 09/16/2019 [id number] Information not available 04/03/2020 How Many Years Have You Smoked Tobacco? 1 [id number] Information not available 04/03/2020 Sex: Unknown Functional Status Question Answer Note LastModified by Organizat ion Details LastModified Time What is your level of alcohol consumption? Occasional [id number] Information not available 04/03/2020 What is your occupation? Unemployed [id number] Information not available 04/03/2020 Do you or have you ever used e-cigarettes or vape? Current user of electronic cigarettes [id number] Information not available 04/03/2020 What is your exercise level? Occasional [id number] Information not available 04/03/2020 Mental Status None recorded. Family History Nothing Reported. Medical History Condition Response Anxiety Disorder Y Diabetes N Muscle, Joint, or Bone Problems Y High Blood Pressure N Seizures/Epilepsy N Acid Reflux (GERD) N Kidney or Bladder Problems N Depression Y Asthma Y Allergies N Anemia N Hepatitis N Liver Disease N Past Encounters Encounter ID Performer Location Encounter Start Date Encounter Closed Date Diagnosis/Indication Diagnosis SNOMED-CT Code Diagnosis ICD10 Code Diagnosis Note [id number] SONG WICK ([facility]) [address] [place] [id number] 0 09/16/2019 09:48:19 09/23/2019 09:31:57 Venereal disease screening 805440106 Z11.3 Elevated blood-pressure reading without diagnosis of hypertension 683675005 R03.0 Pt denies h/o high blood pressure. Denies headaches, vision changes, chest pain, SOB, palpitatio ns. He states he has a PCP in [place]. Advised to follow up with PCP. Discussed DASH diet, daily exercises, and no drug use. BP goal <120/80. 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 He denies regular use. Declines rehab referral. Counseled pt on risks of use including mental harm, high blood pressure, and heart attack. Advised complete cessation. ER precaution s discussed. Exposure t o Chlamydia trachomatis 434183112 Z20.2 Partner tested positive for chlamydia. Will treat. Advised to refrain from sexual contact until both test negative. Safe sex practices discussed. Health Concerns Section Related Observation LastModified by Organization Detai ls LastModified Time None Recorded Concern Status LastModified by Organization Details LastModified Time None Recorded Advance Directives Directive N: Payers Insurance Date Sequence Insurance Name Policy Number Policy Over[place] Covered Member ID Over[place] Member ID Guarantor Name 10/16/2024 1 [facility] (MEDICAID HMO) [id number] Alonso Bender [id number] Alonso Bender Notes Date Note Type Note Provider Name and Address Organization Details Recorded Time 09/16/2019 text/html Sexually Transmi tted InfectionReported bypatient.Context:chla mydia Associated Symptoms:no abdominal pain; no back pain; no chills; no constipation; no diarrhea; no dribbling; no dysuria; no fever; no frequency; no groin pain; no hematuria; no nausea; no odor; no painful intercourse; no penile blisters; no penile rash; no pruritus; no urethral discharge; no urethral itch; no vomiting; no weight loss 23yo M presents for STI testing. He states his partner tested positive for chlamydia and he needs to be treated. He denies pelvic pain, groin pain, lesions, dysuria, discharge, nausea, vomiting, fevers. SONG WICK Attn: Accounting,[address] [facility], [place], [address], [facility] 09/16/2019 10:34:20
--- OUTSIDE RECORDS SUMMARY | 2024-11-14 17:52 | XMS_ITS | CONTINUITY OF CARE DOCUMENT ---
Author Name nealfemi sapphire Address Unknown Organization [facility] Address [address] [facility] [address] [place] [address] Phone [phone] Care Team Providers Care Shape Hand Name Role Phone Isiah SHEPHERD, Renee Unavailable ZAFAR SHEPHERD, ARABELLA Balderas Unavailable ZAFAR SHEPHERD, ARABELLA Balderas Unavailable [phone] INSURANCE PROVIDERS Payer name Policy type / Coverage type [place] red republic[employer] [place] [employer] Medicaid [id number]
[2024-11-14 18:36] LABS: Magnesium 2.1 mg/dL (1.6-2.3)
[2024-11-14] MEDS: THIAMINE HCL INJ 100 MG, FOLIC ACID INJ 1 MG, MAGNESIUM SULFATE INJ 1 GM, MULTIVITAMINS... IV CONT (19:26)
[2024-11-14 19:46] LABS: Add Urine Microscopic? NO; Appearance Urine Clear (Clear); Bilirubin Urine Negative (Negative); Blood Urine Negative (Negative); Color Urine Yellow (Yellow); Glucose Urine UA Negative (Negative); Ketones Urine Negative (Negative); Leukocyte Esterase Ur Negative LEU/UL (Negative); Nitrate Urine Negative (Negative); Protein Urine Negative (Negative); Specific Grav Ur > 1.045 (1.001-1.035); Urobilinogen Urine 0.2 mg/dL (<2.0); pH Urine 6.5 (5.0-9.0)
--- NOTE | 2024-11-14 22:05 | ADMGEN ---
This patient, Alonso Bender, was admitted to IMU Room 205-01. Patient/family oriented to hospital policies and general routines including ID bracelet, bed and alarms, visiting hours, pain management, procedures, bathroom and other care routines, personal items, smoking policy, room service/diet, and visiting hours. Information on how to activate the Rapid Response Team has been discussed. Patient/Family are encouraged to report perceived risks to care and to ask questions if they do not understand what they are told or what they should do.
--- NOTE | 2024-11-14 22:25 | P.HP_ITS ---
H&P: HPI History of Present Illness Date/Time: 11/14/24 22:25 Chief Complaint: Abdominal pain. 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 He began experiencing severe, sharp left upper abdominal pain yesterday similar to prior episodes of pancreatitis. It radiates somewhat through to the back and is associated with nausea and loose stools. He has been taking ibuprofen without much benefit. He denies fever, vomiting, hematemesis, hematochezia, melena, hallucinations, and tremors. He is still drinking 10 to 12 shooters per day of alcohol. In the ED: Blood pressure was 144/98 on arrival. The remainder of his vital signs were stable. Labs were significant for a potassium of 3.3, total bilirubin 1.1, AST 297, ALT 362, alkaline phosphatase 141, lipase 427, ethyl alcohol 128. CT of the abdomen and pelvis showed acute interstitial edematous pancreatitis. He was given a L of normal saline, pantoprazole, ondansetron, morphine, and was started on a banana bag. He is being admitted in this setting for further treatment of pancreatitis. Review of Systems Review of Systems: 12 systems were reviewed and are negativ e except for as per HPI. [facility] Past Medical History Medical History (Updated 11/15/24 @ 03:20 by Negra Seaman PA-C) Seizure not related to alcohol withdrawal Pancreatic pseudocyst Alcohol abuse Pancreatitis Surgical History Surgical History (Updated 11/15/24 @ 03:20 by Negra Seaman PA-C) History of insertion of pancreatic stent it has subsequently been removed History of open reduction and internal fixation (ORIF) procedure repair left femur fracture Family History Family History Mother Cerebrovascular accident Hypertension Social History Social History Social History: Surrogate medical decision maker: Ember Jordan, friend. Code status: Full code. Years smoked: 5 Smoking status: Current every day smoker Tobacco type: e-cigarettes/vaping Alcohol intake: current Drinks per week: 84 Alcohol use details: A 5th of alcohol every 2 days. Substance use: current Substance use type: marijuana Other substance usage details: 08/2024 Last use: 11/13/24 Do You Feel Safe in your Home?: Yes Lack of Transportation: No Lack of Food: Never True Current Housing: I Have Housing Concerned About Future Housing: No Difficulty Paying Gas/Electric Bills: No Difficulty Paying for Meds: No Currently Unemployed: No Education: Grade School Difficulty w/ Childcare or Family Care: No Spiritual care concerns: No Meds Home Medications and Allergies Home Medications ?Medication ?Instructions ?Recorded ?Confirmed ?Type No Home Medications 10/15/24 11/14/24 History Allergies Allergy/AdvReac Type Severity Reaction Status Date / Time No Known Allergies Allergy Verified 10/15/24 13:41 Vital Signs Vital Signs - 24 hr 11/14/24 14:59 11/14/24 17:13 11/14/24 18:27 Temperature 97.9 F 98.1 F Pulse Rate 96 87 Pulse Rate [Monitor] Respiratory Rate 18 18 Blood Pressure 144/98 H 139/101 H Pulse Oximetry 98 97 98 Oxygen Delivery Room Air Room Air 11/14/24 18:30 11/14/24 18:31 11/14/24 18:48 Temperature Pulse Rate 85 Pulse Rate [Monitor] Respiratory Rate 16 Blood Pressure 134/99 H Pulse Oximetry 98 95 97 Oxygen Delivery 11/14/24 19:30 11/14/24 19:34 11/14/24 19:46 Temperature Pulse Rate 79 Pulse Rate [Monitor] Respiratory Rate 18 Blood Pressure 137/97 H 137/97 H 138/95 H Pulse Oximetry 96 96 97 Oxygen Delivery 11/14/24 20:31 11/14/24 21:16 11/14/24 22:00 Temperature Pulse Rate 85 77 Pulse Rate [Monitor] Respiratory Rate Blood Pressure 146/95 H 146/97 H Pulse Oximetry 95 96 Oxygen Delivery 11/14/24 22:22 Temperature Pulse Rate Pulse Rate [Monitor] 77 Respiratory Rate Blood Pressure Pulse Oximetry Oxygen Delivery Exam Narrative: General: Nontoxic-appearing male in the semi-Flores position in bed in moderate distress due to pain. Weight: 80.3 kg. BMI: 24.7. HEENT: PERRL, EOMI. Sclera anicteric. Tacky mucous membranes. Neck: Supple. Respiratory: Lungs are clear to auscultation bilaterally. Cardiovascular: Regular rate and rhythm with S1-S2. Gastrointestinal: Abdomen is soft and nondistended with hypoactive bowel sounds.He is tender to palpation throughout the upper abdomen. No guarding or rebound tenderness. Skin: Warm and dry. No rash or lesions on limited exam. Extremities: No cyanosis, clubbing, or edema. Radial and pedal pulses intact. Neurological: Alert. Cranial nerves 2-12 are grossly intact. No tremors. No gross focal deficits to casual conversation. Psychiatric: Cooperative with appropriate mood and affect. H&P: Results Labs Labs: Short CBC 11/14/24 Range/Units 17:21 WBC 9.5 (4.5-10.0) K/mm3 Hgb 15.9 (14.0-18.0) g/dL Hct 46.4 (42.0-52.0) % Plt Count 229 D (150-375) k/mm3 BMP 11/14/24 17:21 Sodium 139 Potassium 3.3 L Chloride 101 Carbon Dioxide 27 BUN 5 L Creatinine 0.73 Glucose 125 H Calcium 9.1 Liver Function 11/14/24 Range/Units 17:21 Total Bilirubin 1.1 (0.2-1.3) mg/dL AST 297 H (17-59) U/L ALT 362 H (6-50) U/L Alkaline Phosphatase 141 H (38-126) U/L Albumin 4.9 (3.5-5.1) g/dL Urine 11/14/24 Range/Units 18:47 Urine Color Yellow (Yellow) Urine Appearance Clear (Clear) Urine pH 6.5 (5.0-9.0) Ur Specific [place] > 1.045 H (1.001-1.035) Urine Protein Negative (Negative) mg/dL Urine Glucose (UA) Negative (Negative) mg/dL Imaging Abdomen/Pelvis CT 11/14/24 18:39 IMPRESSION: Acute interstitial edematous pancreatitis, as detailed above. Necrosis absent. No well-circumscribed peripancreatic fluid collections. No additional findings suggesting acute hemorrhage. Assessment and Plan Assessment and plan (1) Acute pancreatitis: Code(s): K85.90 - Acute pancreatitis without necrosis or infection, unspecified Status: Acute (2) Alcoholic hepatitis: Code(s): K70.10 - Alcoholic hepatitis without ascites Status: Acute (3) Alcohol abuse: Code(s): F10.10 - Alcohol abuse, uncomplicated Status: Acute (4) Elevated blood pressure reading: Code(s): R03.0 - Elevated blood-pressure reading, without diagnosis of hypertension Status: Acute Plan The patient presented to the emergency department with complaints of abdominal pain, nausea, and diarrhea since yesterday as detailed in HPI. Preliminary workup was significant for transaminitis, elevated lipase, and findings of acute interstitial pancreatitis on imaging. He has been started on fairly aggressive IV fluid rehydration. Continue bowel rest for now. Analgesics and antiemetics are available as needed. AST and ALT are elevated, likely due to alcoholic hepatitis. Discriminant function is only 8.0. Blood pressures have been running a bit high, likely due to pain, and they will be monitored closely for now. Consider antihypertensive depending on how he trends. Initiate CIWA protocol though he has never had alcohol withdrawal with prior hospitalizations. His home medications will be reviewed and resumed as appropriate. Findings and treatment plan were discussed with the patient. Questions were solicited and answered to satisfaction. The patient's medical management will be taken over by the hospitalist team in a.m. Quality VTE Prophylaxis VTE prophylaxis: pharmacologic ordered The patient has been admitted under observation status. Hospitalist MIPS Advance Care Plan I have confirmed that the patient's Advanced Care Plan is present, code status is documented, or surrogate decision maker is listed in patient medical record.: Yes Medication Reconciliation I have utilized all available resources to obtain, update and review the patients current medications (includes all prescriptions, OTC, herbals, cannabis, and nutritional supplements).: Yes
[2024-11-14 23:10] LABS: Prothrombin Time 13.5 Seconds (11.1-14.7)
[2024-11-14 23:11] LABS: Partial Thromboplastin Time 22.7 Seconds (22.3-36.8)
[2024-11-14] MEDS: POTASSIUM CHLORIDE INJ 40 MEQ in SODIUM CHLORIDE 0.9% IV 500 ML 130 MEQ IVPB (23:14)
[2024-11-14] MEDS: LACTATED RINGERS 1,000 ML 200 ML IV CONT (23:14)
[2024-11-14 23:15] LABS: Lactate Dehydrogenase 315 U/L (120-246); Magnesium 1.9 mg/dL (1.6-2.3); Potassium 3.4 mmol/L (3.4-5.0); Triglycerides 252 mg/dL (<150)
[2024-11-14 23:19] LABS: Glucose Point of Care 120 mg/dl (65-105)
[2024-11-15] VITALS (12 sets, daily range): BP systolic 139–160; BP diastolic 90–97; PULSE 69–99; RESP 12–20; TEMP 36.4–36.6; O2SAT 96–98
[2024-11-15] MEDS: HYDROmorphone HCL INJ (*CRX) 2 MG/ML VIAL 1 MG IV PUSH ×3 (01:12→23:21)
[2024-11-15] MEDS: LORazepam INJ (*CRX) 2 MG/ML VIAL 0.5 MG IV PUSH (03:03)
[2024-11-15] MEDS: HYDROmorphone HCL INJ (*CRX) 2 MG/ML VIAL 0.5 MG IV PUSH (04:08)
[2024-11-15] MEDS: chlordiazePOXIDE (*CRX) 10 MG CAPSULE PO ×2 (04:10→17:03)
[2024-11-15 04:26] LABS: Hematocrit 41.9 % (42.0-52.0); Hemoglobin 14.2 g/dL (14.0-18.0); Mean Corpuscular HGB Conc 33.9 g/dl (32-36); Mean Corpuscular Hemoglobin 31.5 pg (26-34); Mean Corpuscular Volume 92.9 fl (80-100); Mean Platelet Volume 11.1 fl (7.4-10.4); Platelet Count Result 178 k/mm3 (150-375); Red Blood Count 4.51 M/mm3 (4.6-6.20); Red Cell Distribution Width 14.1 % (11.5-14.5); White Blood Count 7.5 K/mm3 (4.5-10.0)
[2024-11-15 04:54] LABS: Alanine Aminotransferase 276 U/L (6-50); Alkaline Phosphatase 109 U/L (38-126); Anion Gap 7 mmol/L (4-12); Aspartate Amino Transferase 198 U/L (17-59); Bilirubin,Total 1.1 mg/dL (0.2-1.3); Blood Urea Nitrogen 4 mg/dL (9-20); Calcium 8.1 mg/dL (8.4-10.2); Carbon Dioxide 28 mmol/L (22-30); Chloride 103 mmol/L (98-107); Estimated CRCL calculation 144 ml/min; Estimated Glomerular Filt Rate > 60; Glucose 125 mg/dL (65-110); Lipase 350 U/L (23-300); Sodium 138 mmol/L (137-145); Total Protein 6.9 g/dL (6.3-8.2)
[2024-11-15] MEDS: ONDANSETRON INJ 4 MG/2 ML VIAL IV PUSH ×3 (04:59→17:03)
[2024-11-15] MEDS: HYDROmorphone HCL INJ (*CRX) 2 MG/ML VIAL IV PUSH ×3 (05:11→12:20)
[2024-11-15] MEDS: LACTATED RINGERS 1,000 ML 200 ML IV CONT ×5 (05:12→20:11)
[2024-11-15 05:57] LABS: Glucose Point of Care 134 mg/dl (65-105)
--- NOTE | 2024-11-15 09:37 | PM.IMPN ---
Progress Note: A&P Assessment and Plan (1) Acute pancreatitis: Code(s): K85.90 - Acute pancreatitis without necrosis or infection, unspecified Status: Acute Assessment and Plan: Possibly due to alcoholism Elevated lipase Monitor hematocrit and creatinine NPO Started on IV hydration LR Strict input and output monitoring Monitor electrolytes Pain control and antiemetics as needed Right upper quadrant ultrasound GI consulted and appreciate recommendations If no significant can not improvement in 72 hours will get repeat CT with contrast CT abdomen :shows Acute interstitial edematous pancreatitis, as detailed above. Necrosis absent. No well-circumscribed peripancreatic fluid collections. No additional findings suggesting acute hemorrhage (2) Alcohol abuse: Code(s): F10.10 - Alcohol abuse, uncomplicated Status: Acute Assessment and Plan: IV thiamine and folic acid Monitor CIWA Scheduled Librium AST 198, ALT 276, ALP 109 Elevated LFT Possibly due to alcoholic hepatitis (3) Alcoholic hepatitis: Code(s): K70.10 - Alcoholic hepatitis without ascites Status: Acute Assessment and Plan: As above (4) Elevated blood pressure reading: Code(s): R03.0 - Elevated blood-pressure reading, without diagnosis of hypertension Status: Acute Assessment and Plan: Possibly due to pain Subjective Date/time seen: 11/15/24 09:37 Interval history: Interval history:29-year-old male with history of alcohol abuse pancreatitis, necrotic pancreatitis, pseudocyst, pancreatic stent with subsequent removal, and 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 Patient drinks every day liquor and reports that he drinks heavy unable to give the quantity. Patient last year had endoscopic stent placement at [facility] and it was later removed. 11/15: Patient is nauseated and complaints of abdominal pain. Patient endorses drinking every day and motivated to quit alcohol. Review of Systems Review of Systems: 12 systems were reviewed and are negative except for as per HPI. Exam Narrative: General: Nontoxic-appearing male in the semi-Flores position in bed in moderate distress due to pain. Weight: 80.3 kg. BMI: 24.7. HEENT: PERRL, EOMI. Sclera anicteric. Tacky mucous membranes. Neck: Supple. Respiratory: Lungs are clear to auscultation bilaterally. Cardiovascular: Regular rate and rhythm with S1-S2. Gastrointestinal: Abdomen is soft and nondistended with hypoactive bowel sounds.He is tender to palpation throughout the upper abdomen. No guarding or rebound tenderness. Skin: Warm and dry. No rash or lesions on limited exam. Extremities: No cyanosis, clubbing, or edema. Radial and pedal pulses intact. Neurological: Alert. Cranial nerves 2-12 are grossly intact. No tremors. No gross focal deficits to casual conversation. Psychiatric: Cooperative with appropriate mood and affect. Objective Data Vital Signs Vital Signs: Vital Signs - 24 hr 11/14/24 14:59 11/14/24 17:13 11/14/24 18:27 Temperature 97.9 F 98.1 F Pulse Rate 96 87 Pulse Rate [Monitor] Respiratory Rate 18 18 Blood Pressure 144/98 H 139/101 H Pulse Oximetry 98 97 98 Oxygen Delivery Room Air Room Air 11/14/24 18:30 11/14/24 18:31 11/14/24 18:48 Temperature Pulse Rate 85 Pulse Rate [Monitor] Respiratory Rate 16 Blood Pressure 134/99 H Pulse Oximetry 98 95 97 Oxygen Delivery 11/14/24 19:30 11/14/24 19:34 11/14/24 19:46 Temperature Pulse Rate 79 Pulse Rate [Monitor] Respiratory Rate 18 Blood Pressure 137/97 H 137/97 H 138/95 H Pulse Oximetry 96 96 97 Oxygen Delivery 11/14/24 20:31 11/14/24 21:16 11/14/24 21:52 Temperature 98.3 F Pulse Rate 85 80 Pulse Rate [Monitor] Respiratory Rate 18 Blood Pressure 146/95 H 146/97 H 152/95 H Pulse Oximetry 95 96 96 Oxygen Delivery 11/14/24 22:00 11/14/24 22:22 11/14/24 22:23 Temperature Pulse Rate 77 Pulse Rate [Monitor] 77 Respiratory Rate Blood Pressure Pulse Oximetry Oxygen Delivery Room Air 11/14/24 23:10 11/14/24 23:36 11/14/24 23:41 Temperature 98.1 F Pulse Rate 85 Pulse Rate [Monitor] 83 Respiratory Rate 18 Blood Pressure 146/93 H Pulse Oximetry 97 Oxygen Delivery Room Air 11/15/24 00:00 11/15/24 02:00 11/15/24 04:00 Temperature Pulse Rate 91 72 Pulse Rate [Monitor] 80 Respiratory Rate Blood Pressure Pulse Oximetry Oxygen Delivery 11/15/24 04:00 11/15/24 04:00 11/15/24 04:00 Temperature 97.7 F Pulse Rate 75 92 Pulse Rate [Monitor] Respiratory Rate 20 Blood Pressure 150/96 H Pulse Oximetry 97 Oxygen Delivery Room Air 11/15/24 05:57 11/15/24 08:00 Temperature 97.5 F L Pulse Rate 69 79 Pulse Rate [Monitor] Respiratory Rate 16 Blood Pressure 139/95 H Pulse Oximetry 96 Oxygen Delivery Intake/Output Intake/Output: Intake & Output 11/12/24 11/13/24 11/14/24 11/15/24 23:59 23:59 23:59 23:59 Intake Total 1000 2533.2 Balance 1000 2533.2 Meds/Results Medications: Active Medications Generic Name Dose Route Start Last Admin Trade Name Freq PRN Reason Stop Dose Admin Chlordiazepoxide HCl 10 mg 11/15/24 03:25 11/15/24 04:10 Chlordiazepoxide (*Crx) 10 Mg Capsule PO 10 mg Q8H PRN Administration withdrawal symptoms & CIWA < 8 Hydromorphone HCl 1 mg 11/15/24 04:55 Hydromorphone Hcl Inj (*Crx) 2 Mg/Ml Vial IV PUSH Q2H PRN Pain Rated 4-6 Hydromorphone HCl 2 mg 11/15/24 04:56 11/15/24 05:11 Hydromorphone Hcl Inj (*Crx) 2 Mg/Ml Vial IV PUSH 2 mg Q2H PRN Administration Pain Rated 7-10 Lactated Ringer's 1,000 mls @ 200 mls/hr 11/14/24 22:35 11/15/24 05:12 Lr - Lactated Ringers Iv IV CONT 200 mls/hr .Q5H CECY Administration Ondansetron HCl 4 mg 11/14/24 22:41 11/15/24 04:59 Ondansetron Inj 4 Mg/2 Ml Vial IV PUSH 4 mg Q6H PRN Administration Nausea And Vomiting Radiology Results: ITS Impressions Abdomen/Pelvis CT 11/14/24 18:39 IMPRESSION: Acute interstitial edematous pancreatitis, as detailed above. Necrosis absent. No well-circumscribed peripancreatic fluid collections. No additional findings suggesting acute hemorrhage. Labs Labs: Laboratory Results - last 24 hr 11/14/24 11/14/24 11/14/24 17:21 18:47 22:51 WBC 9.5 RBC 5.15 Hgb 15.9 Hct 46.4 MCV 90.1 MCH 30.9 MCHC 34.3 RDW 13.9 Plt Count 229 D MPV 10.8 H Immature Gran % (Auto) 0.6 H Neut % (Auto) 57.6 Lymph % (Auto) 29.4 Turner % (Auto) 9.8 H Eos % (Auto) 2.1 Baso % (Auto) 0.5 Lymph # (Auto) 2.79 Turner # (Auto) 0.9 H Eos # (Auto) 0.2 Baso # (Auto) 0.1 Abs Immat Gran (auto) 0.06 H Absolute Neuts (auto) 5.5 Absolute Nucleated RBC 0.000 Nucleated RBC % 0.0 PT 13.5 INR 1.0 APTT 22.7 Sodium 139 Potassium 3.3 L 3.4 Chloride 101 Carbon Dioxide 27 Anion Gap 11 BUN 5 L Creatinine 0.73 Estim Creat Clear Calc 139 Estimated GFR > 60 Glucose 125 H POC Capillary Glucose Calcium 9.1 Magnesium 2.1 1.9 Total Bilirubin 1.1 AST 297 H ALT 362 H Alkaline Phosphatase 141 H Lactate Dehydrogenase 315 H Total Protein 8.6 H Albumin 4.9 Triglycerides 252 H Lipase 427 H Urine Color Yellow Urine Appearance Clear Urine pH 6.5 Ur Specific [place] > 1.045 H Urine Protein Negative Urine Glucose (UA) Negative Urine Ketones Negative Ur Blood (Man) Negative Urine Nitrate Negative Urine Bilirubin Negative Urine Urobilinogen 0.2 Leukocyte Esterase Rfl Negative Ethyl Alcohol 128 11/14/24 11/15/24 11/15/24 23:17 03:50 05:54 WBC 7.5 RBC 4.51 L Hgb 14.2 Hct 41.9 L MCV 92.9 MCH 31.5 MCHC 33.9 RDW 14.1 Plt Count 178 MPV 11.1 H Immature Gran % (Auto) Neut % (Auto) Lymph % (Auto) Turner % (Auto) Eos % (Auto) Baso % (Auto) Lymph # (Auto) Turner # (Auto) Eos # (Auto) Baso # (Auto) Abs Immat Gran (auto) Absolute Neuts (auto) Absolute Nucleated RBC Nucleated RBC % PT INR APTT Sodium 138 Potassium 4.0 Chloride 103 Carbon Dioxide 28 Anion Gap 7 BUN 4 L Creatinine 0.70 Estim Creat Clear Calc 144 Estimated GFR > 60 Glucose 125 H POC Capillary Glucose 120 H 134 H Calcium 8.1 L Magnesium Total Bilirubin 1.1 AST 198 H ALT 276 H Alkaline Phosphatase 109 Lactate Dehydrogenase Total Protein 6.9 Albumin 4.0 Triglycerides Lipase 350 H Urine Color Urine Appearance Urine pH Ur Specific [place] Urine Protein Urine Glucose (UA) Urine Ketones Ur Blood (Man) Urine Nitrate Urine Bilirubin Urine Urobilinogen Leukocyte Esterase Rfl Ethyl Alcohol Quality VTE Prophylaxis VTE prophylaxis: pharmacologic ordered Hospitalist MIPS Advance Care Plan I have confirmed that the patient's Advanced Care Plan is present, code status is documented, or surrogate decision maker is listed in patient medical record.: Yes Medication Reconciliation I have utilized all available resources to obtain, update and review the patients current medications (includes all prescriptions, OTC, herbals, cannabis, and nutritional supplements).: Yes
--- NOTE | 2024-11-15 10:57 | WPDGICN ---
Assessment and Plan Assessment and plan (1) Acute alcoholic pancreatitis: Qualifiers: Acute pancreatitis complication: no infection or necrosis Qualified Code(s): K85.20 - Alcohol induced acute pancreatitis without necrosis or infection Code(s): K85.20 - Alcohol induced acute pancreatitis without necrosis or infection Status: Acute (2) Alcohol abuse: Code(s): F10.10 - Alcohol abuse, uncomplicated Status: Acute Plan 1. Acute alcoholic pancreatitis/ETOH abuse: Patient with multiple hospital admissions over the past year for alcohol induced pancreatitis. Severe episode of pancreatitis with SIRS, ileus and LARRY at the end of December requiring ICU admission, intubation, paracentesis, and TPN administration. At the end of March he was transferred from [place] to a higher level of care and according to documentation he had pancreatic stents placed which were later removed. Patient continues to drink 10-12 ?shooters? a day. Alcohol level at time of admission was 128. Labs today show HGB 14, HCT 42, platelets 178. Total bilirubin 1.1, AST 198, ALT 276, alkaline phosphatase 109, lipase 350. Triglycerides 252 on admission. BISAP score 0 No signs of acute kidney injury with BUN 4 and creatinine 0.70 [facility] protocol supportive care and IV fluids and pain management Without alcohol cessation these episodes will likely become more frequent and severe. Alcohol cessation recommended, consider outpatient treatment No need for intervention from a GI standpoint at this time Thank you very much for allowing me to share in the care of this very nice patient. This report may have been done utilizing a voice recognition system. Attempts have been made to correct errors. However, there may be uncorrected grammatical, spelling, and recognition errors present. GI Consult Note Consult date/time: 11/15/24 10:57 Reason for consult: Acute pancreatitis HPI: Alonso Bender is a 29 year old male with history of tobacco abuse and alcoholism and prior episodes of pancreatitis. He presented to the ER yesterday for epigastric pain. GI has been consulted for pancreatitis. Patient known to GI from prior hospitalizations for ETOH abuse and pancreatitis. Patient had an extended hospitalization from Jan 22-Mar 05 and during that admission was in the ICU for SIRS, LARRY and severe alcoholic pancreatitis resulting in need for intubation, paracentesis, and TPN. Had another admission at the end of March and was transferred to a higher level of care for necrosis versus pseudocyst. According to documentation during that admission he underwent pancreatic stent placement and later removal. Patient continues to drink 10-[address] this admission showed acute interstitial edematous pancreatitis without necrosis, peripancreatic fluid collection, or acute hemorrhage. Labs on admission showed total bilirubin 1.1, AST 297, ALT 362, alkaline phosphatase 141, lactate dehydrogenase 315 and lipase 427. Since his admission and being given IV fluids and pain medications his symptoms have improved. At the time of his visit the patient had just received Dilaudid and was sleeping. I spoke with the nurse who stated that patient's pain has been better controlled since admission. ENDOSCOPY HISTORY: Per patient he has never had an EGD or colonoscopy LABS AND STOOL STUDIES: Labs 11/15/2024: Sodium 138, potassium 4.0, BUN 4, creatinine 0.70, GFR >60, calcium 8.1 WBC 8, Hgb 14, Hct 42, MCV 93, platelets 178 Total bilirubin 1.1, AST 198, ALT 276, Alkaline Phos 109, albumin 4.0, lipase 250 Labs 11/14/2024: Sodium 139, potassium 3.3, BUN 5, creatinine 0.73, GFR >60 WBC 10, Hgb 16, Hct 46, MCV 90, platelets 229, INR 1.0 Total bilirubin 1.1, AST 297, ALT 362, Alkaline Phos 141, albumin 4.9, lactate dehydrogenase 315, lipase 427 Ethyl alcohol 128 IMAGING: CT abd/pelvis w contrast 11/14/2024 IMPRESSION: Acute interstitial edematous pancreatitis, as detailed above. Necrosis absent. No well-circumscribed peripancreatic fluid collections. No additional findings suggesting acute hemorrhage. CT abd/pelvis w contrast 09/18/2024 IMPRESSION: 1. Acute uncomplicated pancreatitis. CT abd/pelvis w contrast 03/31/2024 Impression: 9.2 x 5.7 x 7.3 cm irregular fluid collection involving the pancreas/peripancreatic region, as detailed above, compatible with either walled off necrosis or pseudocyst. Correlate clinically for superinfection. Paracentesis 02/26/2024 IMPRESSION: 1. Successful ultrasound-guided paracentesis yielding 400 mL of dark brownish fluid. Path: Peritoneal fluid, paracentesis: - Benign CT abd/pelvis w contrast 02/25/2024 FINDINGS: New small bilateral posterior layering pleural effusions with dependent atelectasis in the bilateral lower lobes. Heart size is normal. No pericardial effusion. A few hepatic and splenic calcific lesions consistent with old granulomatous disease. High attenuation vicariously excreted contrast within the otherwise normal-appearing gallbladder likely related to the earlier contrast-enhanced CT. Bilateral adrenal glands and kidneys are normal. There is significant progression of retroperitoneal inflammatory stranding and nonloculated fluid surrounding the pancreas and extending inferiorly along the bilateral pararenal spaces and paracolic gutters consistent with worsening acute interstitial pancreatitis. There is also new deeper bilateral peripancreatic stranding as well as a small to moderate amount of ascites scattered throughout the abdomen and pelvis. The pancreas is difficult to distinguish from the stranding and fluid. No evident abscess or other loculated fluid collections identified. Normal appendix. There are multiple mildly dilated gas-filled loops of small bowel in the abdomen which appear to gradually taper distally without a discrete transition point to suggest obstruction in this most likely represents a reactive ileus secondary to the acute pancreatitis. Small to moderate amount of gas and stool scattered throughout the colon. Increased density of the urine in the otherwise normal bladder consistent with additional residual urinary excreted contrast. No free intraperitoneal gas. No pathologically enlarged abdominal or pelvic lymphadenopathy. Partially visualized old mid diaphyseal fracture of the left femur with antegrade intramedullary hermann fixation. IMPRESSION: 1. Significant progression of retroperitoneal inflammatory stranding and fluid centered around the pancreas consistent with worsening acute interstitial pancreatitis. 2. New small bilateral pleural effusions and small to moderate amount of ascites in the abdomen and pelvis likely related to acute pancreatitis. 3. Multiple mildly dilated loops of small bowel without discrete transition point most likely representing a secondary reactive ileus. Review of Systems Constitutional: Constitutional: Reports as per HPI ENT: Reports as per HPI Cardiovascular: Cardiovascular: Reports as per HPI, Denies chest pain and Denies dyspnea Respiratory: Respiratory: Denies cough and Denies dyspnea Gastrointestinal: Gastrointestinal: Reports as per HPI Musculoskeletal: Musculoskeletal: Reports as per HPI Integumentary/Breasts: Skin/Breast: Reports as per HPI Psychiatric: Psychiatric: Reports as per HPI Endocrine: Endocrine: Reports no additional endocrine complaints Hematologic/Lymphatic: Hematologic/Lymphatic: Reports no additional hematologic/lymphatic complaints [facility] Past Medical History Medical History (Updated 11/15/24 @ 03:20 by Negra Seaman PA-C) Seizure not related to alcohol withdrawal Pancreatic pseudocyst Alcohol abuse Pancreatitis Surgical History Surgical History (Updated 11/15/24 @ 03:20 by Negra Seaman PA-C) History of insertion of pancreatic stent it has subsequently been removed History of open reduction and internal fixation (ORIF) procedure repair left femur fracture Family History Family History Mother Cerebrovascular accident Hypertension Social History Social History Social History: Surrogate medical decision maker: Ember Jordan, friend. Code status: Full code. Years smoked: 5 Smoking status: Current every day smoker Tobacco type: e-cigarettes/vaping Alcohol intake: current Drinks per week: 84 Alcohol use details: A 5th of alcohol every 2 days. Substance use: current Substance use type: marijuana Other substance usage details: 08/2024 Last use: 11/13/24 Do You Feel Safe in your Home?: Yes Lack of Transportation: No Lack of Food: Never True Current Housing: I Have Housing Concerned About Future Housing: No Difficulty Paying Gas/Electric Bills: No Difficulty Paying for Meds: No Currently Unemployed: No Education: Grade School Difficulty w/ Childcare or Family Care: No Spiritual care concerns: No Meds Home Medications and Allergies Home Medications ?Medication ?Instructions ?Recorded ?Confirmed ?Type No Home Medications 10/15/24 11/14/24 History Allergies Allergy/AdvReac Type Severity Reaction Status Date / Time No Known Allergies Allergy Verified 10/15/24 13:41 Vital Signs Vital Signs - 24 hr 11/14/24 14:59 11/14/24 17:13 11/14/24 18:27 Temperature 97.9 F 98.1 F Pulse Rate 96 87 Pulse Rate [Monitor] Respiratory Rate 18 18 Blood Pressure 144/98 H 139/101 H Pulse Oximetry 98 97 98 Oxygen Delivery Room Air Room Air 11/14/24 18:30 11/14/24 18:31 11/14/24 18:48 Temperature Pulse Rate 85 Pulse Rate [Monitor] Respiratory Rate 16 Blood Pressure 134/99 H Pulse Oximetry 98 95 97 Oxygen Delivery 11/14/24 19:30 11/14/24 19:34 11/14/24 19:46 Temperature Pulse Rate 79 Pulse Rate [Monitor] Respiratory Rate 18 Blood Pressure 137/97 H 137/97 H 138/95 H Pulse Oximetry 96 96 97 Oxygen Delivery 11/14/24 20:31 11/14/24 21:16 11/14/24 21:52 Temperature 98.3 F Pulse Rate 85 80 Pulse Rate [Monitor] Respiratory Rate 18 Blood Pressure 146/95 H 146/97 H 152/95 H Pulse Oximetry 95 96 96 Oxygen Delivery 11/14/24 22:00 11/14/24 22:22 11/14/24 22:23 Temperature Pulse Rate 77 Pulse Rate [Monitor] 77 Respiratory Rate Blood Pressure Pulse Oximetry Oxygen Delivery Room Air 11/14/24 23:10 11/14/24 23:36 11/14/24 23:41 Temperature 98.1 F Pulse Rate 85 Pulse Rate [Monitor] 83 Respiratory Rate 18 Blood Pressure 146/93 H Pulse Oximetry 97 Oxygen Delivery Room Air 11/15/24 00:00 11/15/24 02:00 11/15/24 04:00 Temperature Pulse Rate 91 72 Pulse Rate [Monitor] 80 Respiratory Rate Blood Pressure Pulse Oximetry Oxygen Delivery 11/15/24 04:00 11/15/24 04:00 11/15/24 04:00 Temperature 97.7 F Pulse Rate 75 92 Pulse Rate [Monitor] Respiratory Rate 20 Blood Pressure 150/96 H Pulse Oximetry 97 Oxygen Delivery Room Air 11/15/24 05:57 11/15/24 08:00 11/15/24 08:00 Temperature 97.5 F L Pulse Rate 69 79 Pulse Rate [Monitor] 99 Respiratory Rate 16 Blood Pressure 139/95 H Pulse Oximetry 96 Oxygen Delivery 11/15/24 08:00 11/15/24 10:00 Temperature Pulse Rate 69 71 Pulse Rate [Monitor] Respiratory Rate Blood Pressure Pulse Oximetry Oxygen Delivery Exam Const: General: cooperative, healthy appearing, comfortable, no acute distress and well developed Orientation/consciousness: oriented to person, oriented to place, oriented to time and patient oriented x3 Other: sleeping HENMT: Head: normal to inspection, normocephalic and atraumatic Mouth: Yes Normal oral and palatal mucosa present and Yes moist mucous membranes Eyes: General: appearance normal, both eyes and all related structures Conjunctivae: conjunctivae normal Sclera: sclerae normal Pupils: Equal, round and reactive pupils present Neck: Neck: normal visual inspection Chest: Chest palpation & inspection: normal inspection of the chest Resp: Effort & Inspection: normal respiratory effort and able to speak in complete sentences Auscultation: clear to auscultation bilaterally Cardio: Jugular venous distension: no JVD Rate: regular rate Rhythm: regular rhythm Heart sounds: S1 normal heart sound present and S2 normal heart sound present GI: Inspection: normal to inspection GI Palp: Yes Soft to palpation and Yes No hepatosplenomegaly present Auscultation: normal bowel sounds Rectal Exam: deferred Skin: General skin exam: normal color and no rashes or lesions noted Neuro: General: oriented to person, oriented to place, oriented to time and patient oriented x3 Cranial nerves: Yes Equal, round and reactive pupils present Speech: normal speech Extrem: General: normal to inspection and no clubbing, cyanosis or edema Psych: Appearance: grossly normal and well kempt Affect: normal affect Results Labs 11/15/24 03:50 11/15/24 03:50 Labs: Short CBC 11/14/24 11/15/24 Range/Units 17:21 03:50 WBC 9.5 7.5 (4.5-10.0) K/mm3 Hgb 15.9 14.2 (14.0-18.0) g/dL Hct 46.4 41.9 L (42.0-52.0) % Plt Count 229 D 178 (150-375) k/mm3 BMP 11/14/24 11/14/24 11/15/24 17:21 22:51 03:50 Sodium 139 138 Potassium 3.3 L 3.4 4.0 Chloride 101 103 Carbon Dioxide 27 28 BUN 5 L 4 L Creatinine 0.73 0.70 Glucose 125 H 125 H Calcium 9.1 8.1 L Liver Function 11/14/24 11/15/24 Range/Units 17:21 03:50 Total Bilirubin 1.1 1.1 (0.2-1.3) mg/dL AST 297 H 198 H (17-59) U/L ALT 362 H 276 H (6-50) U/L Alkaline Phosphatase 141 H 109 (38-126) U/L Albumin 4.9 4.0 (3.5-5.1) g/dL Urine 11/14/24 Range/Units 18:47 Urine Color Yellow (Yellow) Urine Appearance Clear (Clear) Urine pH 6.5 (5.0-9.0) Ur Specific [place] > 1.045 H (1.001-1.035) Urine Protein Negative (Negative) mg/dL Urine Glucose (UA) Negative (Negative) mg/dL
[2024-11-15 12:07] LABS: Glucose Point of Care 141 mg/dl (65-105)
[2024-11-15] MEDS: SODIUM CHLORIDE 0.9% IVPB (12:20)
[2024-11-15] MEDS: PANTOPRAZOLE SODIUM IV 40 MG VIAL IV PUSH ×2 (12:20→20:14)
[2024-11-15] MEDS: THIAMINE HCL IVPB (12:20)
[2024-11-15] MEDS: MORPHINE SULFATE (*CRX) 2 MG/ML INJ 1 MG IV PUSH ×2 (15:14→18:42)
[2024-11-15] MEDS: traMADol HCL (*CRX) 50 MG TABLET PO (17:54)
[2024-11-15 18:52] LABS: Glucose Point of Care 128 mg/dl (65-105)
[2024-11-15] MEDS: LORazepam (*CRX) 1 MG TABLET PO (20:07)
[2024-11-15 20:08] LABS: Alanine Aminotransferase 282 U/L (6-50); Albumin Level 4.3 g/dL (3.5-5.1); Alkaline Phosphatase 141 U/L (38-126); Anion Gap 11 mmol/L (4-12); Aspartate Amino Transferase 256 U/L (17-59); Bilirubin,Total 3.7 mg/dL (0.2-1.3); Blood Urea Nitrogen 2 mg/dL (9-20); Calcium 8.6 mg/dL (8.4-10.2); Carbon Dioxide 25 mmol/L (22-30); Chloride 95 mmol/L (98-107); Estimated CRCL calculation 189 ml/min; Estimated Glomerular Filt Rate > 60; Glucose 140 mg/dL (65-110); Lipase 765 U/L (23-300); Potassium 3.4 mmol/L (3.4-5.0); Sodium 131 mmol/L (137-145); Total Protein 7.4 g/dL (6.3-8.2)
[2024-11-15] MEDS: KETOROLAC 15 MG/ML VIAL (*BKC) IV PUSH (20:08)
[2024-11-15] MEDS: chlordiazePOXIDE (*CRX) 25 MG CAPSULE 50 MG PO (20:25)
--- NOTE | 2024-11-15 20:38 | PM.EVENT ---
Event Note Event Note Event Note: I was contacted by ICU/IMU charge regarding this patient yelling and screaming cursing out the nurses regarding his pain medication being de-escalated today. Patient was stating that he was having active alcohol withdrawal as well as significant upper abdominal pain. Throughout the day his Dilaudid and Ativan had been discontinued and he had morphine 1 mg IV or tramadol oral and for CIWA scale only 10 mg Librium every 8 hours. I came to bedside to evaluate patient and he did seem to have CIWA over 8 as well as evident epigastric pain. Stat labs ordered, mild increase in lipase noted up to 765. Sodium had decreased to 131, possibly due to pain/anxious response and high dose IV fluids. Total bilirubin increased to 3.7. LFTs also minimally higher than last draw but lower than initial labs this admit. I adjusted Librium dosing to be more in line with standard withdrawal dosing, gave a one time dose of oral lorazepam 1 mg, scheduled ketorolac 15 mg IV Q6H for 3 days duration and changed morphine back to Dilaudid 1mg every 3 hours overnight and decreasing down to 0.5 mg every 3 hours starting at 0700. Prior to the change earlier in the day to morphine, he had been getting IV Dilaudid 2 mg every 2 hours. I felt this was a way to try to titrate down strong medication over 24 hours rather than very abrupt. I did speak to patient and inform him that GI already cleared him after evaluation and if he became aggressive or abusive, even verbally, again he would be discharged immediately. Patient acknowledged and stated he would not react that way again.
[2024-11-15 23:48] LABS: Glucose Point of Care 136 mg/dl (65-105)
[2024-11-16] VITALS (8 sets, daily range): BP systolic 133–159; BP diastolic 82–95; PULSE 72–87; RESP 18–20; TEMP 36.2–36.8; O2SAT 94–99
[2024-11-16] MEDS: LACTATED RINGERS 1,000 ML 200 ML IV CONT ×2 (01:19→05:52)
[2024-11-16] MEDS: chlordiazePOXIDE (*CRX) 25 MG CAPSULE PO (01:28)
[2024-11-16] MEDS: KETOROLAC 15 MG/ML VIAL (*BKC) IV PUSH ×3 (02:04→15:21)
[2024-11-16] MEDS: HYDROmorphone HCL INJ (*CRX) 2 MG/ML VIAL 1 MG IV PUSH ×2 (02:42→05:49)
[2024-11-16 04:17] LABS: Hematocrit 41.7 % (42.0-52.0); Hemoglobin 14.2 g/dL (14.0-18.0); Immature Platelet Fraction Pct 10.3 % (0.9-11.2); Mean Corpuscular HGB Conc 34.1 g/dl (32-36); Mean Corpuscular Hemoglobin 31.3 pg (26-34); Mean Corpuscular Volume 91.9 fl (80-100); Platelet Count Result 136 k/mm3 (150-375); Red Blood Count 4.54 M/mm3 (4.6-6.20); Red Cell Distribution Width 13.6 % (11.5-14.5); White Blood Count 10.3 K/mm3 (4.5-10.0)
[2024-11-16 04:36] LABS: Alanine Aminotransferase 246 U/L (6-50); Alkaline Phosphatase 116 U/L (38-126); Anion Gap 9 mmol/L (4-12); Aspartate Amino Transferase 200 U/L (17-59); Bilirubin,Total 4.2 mg/dL (0.2-1.3); Blood Urea Nitrogen 3 mg/dL (9-20); Calcium 8.9 mg/dL (8.4-10.2); Carbon Dioxide 28 mmol/L (22-30); Chloride 96 mmol/L (98-107); Estimated CRCL calculation 189 ml/min; Estimated Glomerular Filt Rate > 60; Glucose 125 mg/dL (65-110); Potassium 3.5 mmol/L (3.4-5.0); Sodium 133 mmol/L (137-145)
[2024-11-16 05:57] LABS: Glucose Point of Care 120 mg/dl (65-105)
[2024-11-16] MEDS: ONDANSETRON INJ 4 MG/2 ML VIAL IV PUSH ×2 (06:34→15:21)
[2024-11-16] MEDS: traMADol HCL (*CRX) 50 MG TABLET PO (06:34)
[2024-11-16] MEDS: FOLIC ACID 1 MG/0.2 ML INJ IV PUSH (08:49)
[2024-11-16] MEDS: NICOTINE (*PBKC) 21 MG PATCH 1 PATCH TRANSDERM (08:50)
[2024-11-16] MEDS: HYDROmorphone HCL INJ (*CRX) 2 MG/ML VIAL 0.5 MG IV PUSH ×5 (08:50→23:13)
[2024-11-16] MEDS: PANTOPRAZOLE SODIUM IV 40 MG VIAL IV PUSH ×2 (08:50→20:12)
[2024-11-16] MEDS: POTASSIUM CHLORIDE 20 MEQ ER TABLET 40 MEQ PO (12:08)
--- NOTE | 2024-11-16 13:08 | P.PNIM_ITS ---
Progress Note: A&P Assessment and Plan (1) Acute pancreatitis: Code(s): K85.90 - Acute pancreatitis without necrosis or infection, unspecified Status: Acute Assessment and Plan: Possibly due to alcoholism Elevated lipase Monitor hematocrit and creatinine NPO Started on IV hydration LR Strict input and output monitoring Monitor electrolytes Pain control and antiemetics as needed Right upper quadrant ultrasound GI consulted and appreciate recommendations If no significant can not improvement in 72 hours will get repeat CT with contrast CT abdomen :shows Acute interstitial edematous pancreatitis, as detailed above. Necrosis absent. No well-circumscribed peripancreatic fluid collections. No additional findings suggesting acute hemorrhage (2) Alcohol abuse: Code(s): F10.10 - Alcohol abuse, uncomplicated Status: Acute Assessment and Plan: IV thiamine and folic acid Monitor CIWA Scheduled Librium AST 198, ALT 276, ALP 109 Elevated LFT Possibly due to alcoholic hepatitis (3) Alcoholic hepatitis: Code(s): K70.10 - Alcoholic hepatitis without ascites Status: Acute Assessment and Plan: As above (4) Elevated blood pressure reading: Code(s): R03.0 - Elevated blood-pressure reading, without diagnosis of hypertension Status: Acute Assessment and Plan: Possibly due to pain Subjective Date/time seen: 11/16/24 13:08 Interval history: Tolerating clear liquid diet. Advance to low-fat diet. Monitor CIWA scores Review of Systems Review of Systems: 12 systems were reviewed and are negativ e except for as per HPI. Exam Narrative: General: Nontoxic-appearing male in the semi-Flores position in bed in moderate distress due to pain. Weight: 80.3 kg. BMI: 24.7. HEENT: PERRL, EOMI. Sclera anicteric. Tacky mucous membranes. Neck: Supple. Respiratory: Lungs are clear to auscultation bilaterally. Cardiovascular: Regular rate and rhythm with S1-S2. Gastrointestinal: Abdomen is soft and nondistended with hypoactive bowel sounds.He is tender to palpation throughout the upper abdomen. No guarding or rebound tenderness. Skin: Warm and dry. No rash or lesions on limited exam. Extremities: No cyanosis, clubbing, or edema. Radial and pedal pulses intact. Neurological: Alert. Cranial nerves 2-12 are grossly intact. No tremors. No gross focal deficits to casual conversation. Psychiatric: Cooperative with appropriate mood and affect. Objective Data Vital Signs Vital Signs: Vital Signs - 24 hr 11/15/24 14:00 11/15/24 16:00 11/15/24 16:00 Temperature 97.9 F Pulse Rate 76 72 70 Pulse Rate [Monitor] Respiratory Rate 16 Blood Pressure 146/94 H Pulse Oximetry 97 Oxygen Delivery 11/15/24 19:33 11/15/24 20:00 11/15/24 20:00 Temperature 97.9 F Pulse Rate 90 73 Pulse Rate [Monitor] 71 Respiratory Rate 20 Blood Pressure 160/97 H Pulse Oximetry 98 Oxygen Delivery 11/15/24 23:24 11/16/24 00:00 11/16/24 00:02 Temperature 98.3 F Pulse Rate 78 76 Pulse Rate [Monitor] 71 Respiratory Rate 20 Blood Pressure 159/89 H Pulse Oximetry 94 Oxygen Delivery 11/16/24 01:22 11/16/24 04:00 11/16/24 04:00 Temperature 98.0 F Pulse Rate 77 77 Pulse Rate [Monitor] 73 Respiratory Rate 18 Blood Pressure 137/82 Pulse Oximetry 95 Oxygen Delivery 11/16/24 04:00 11/16/24 08:00 11/16/24 08:00 Temperature 97.5 F L Pulse Rate 83 Pulse Rate [Monitor] 72 Respiratory Rate 18 Blood Pressure 158/95 H Pulse Oximetry 99 Oxygen Delivery Room Air 11/16/24 08:00 11/16/24 12:00 Temperature 97.9 F Pulse Rate 82 85 Pulse Rate [Monitor] Respiratory Rate 20 Blood Pressure 133/84 Pulse Oximetry 99 Oxygen Delivery Intake/Output Intake/Output: Intake & Output 11/13/24 11/14/24 11/15/24 11/16/24 23:59 23:59 23:59 23:59 Intake Total 1000 5693.2 3190 Output Total 2600 1200 Balance 1000 3093.2 1989 Meds/Results Medications: Active Medications Generic Name Dose Route Start Last Admin Trade Name Freq PRN Reason Stop Dose Admin Chlordiazepoxide HCl 25 mg 11/15/24 19:54 11/16/24 01:28 Chlordiazepoxide (*Crx) 25 Mg Capsule PO 25 mg Q4H PRN Administration CIWA 8-15 Chlordiazepoxide HCl 50 mg 11/15/24 19:54 11/15/24 20:25 Chlordiazepoxide (*Crx) 25 Mg Capsule PO 50 mg Q4H PRN Administration CIWA 16 or greater Folic Acid 1 mg 11/16/24 09:00 11/16/24 08:49 Folic Acid 1 Mg/0.2 Ml Inj IV PUSH 1 mg QAM CECY Administration Hydromorphone HCl 0.5 mg 11/16/24 07:00 11/16/24 13:01 Hydromorphone Hcl Inj (*Crx) 2 Mg/Ml Vial IV PUSH 0.5 mg Q3H PRN Administration Pain Rated 5 OR LESS Lactated Ringer's 1,000 mls @ 100 mls/hr 11/14/24 22:35 11/16/24 08:55 Lr - Lactated Ringers Iv IV CONT 100 mls/hr .Q10H CECY Infusion Ketorolac Tromethamine 15 mg 11/16/24 10:43 Ketorolac 15 Mg/Ml Vial (*Bkc) IV PUSH 11/18/24 19:59 Q6H PRN Abdominal Cramping Nicotine 1 patch 11/16/24 09:00 11/16/24 08:50 Nicotine (*Pbkc) 21 Mg Patch TRANSDERM 1 patch DAILY CECY Administration Ondansetron HCl 4 mg 11/14/24 22:41 11/16/24 06:34 Ondansetron Inj 4 Mg/2 Ml Vial IV PUSH 4 mg Q6H PRN Administration Nausea And Vomiting Pantoprazole Sodium 40 mg 11/15/24 09:00 11/16/24 08:50 Pantoprazole Sodium Iv 40 Mg Vial IV PUSH 40 mg Q12HR CECY Administration Tramadol HCl 50 mg 11/15/24 17:01 11/16/24 06:34 Tramadol Hcl (*Crx) 50 Mg Tablet PO 50 mg Q4H PRN Administration PAIN RATED 5 OR LESS Radiology Results: ITS Impressions Abdomen/Pelvis CT 11/14/24 18:39 IMPRESSION: Acute interstitial edematous pancreatitis, as detailed above. Necrosis absent. No well-circumscribed peripancreatic fluid collections. No additional findings suggesting acute hemorrhage. Labs Labs: Laboratory Results - last 24 hr 11/15/24 11/15/24 11/15/24 18:49 19:53 23:45 WBC RBC Hgb Hct MCV MCH MCHC RDW Plt Count MPV % Immature Plt Fraction Sodium 131 L Potassium 3.4 Chloride 95 L Carbon Dioxide 25 Anion Gap 11 BUN 2 L Creatinine 0.52 L Estim Creat Clear Calc 189 Estimated GFR > 60 Glucose 140 H POC Capillary Glucose 128 H 136 H Calcium 8.6 Total Bilirubin 3.7 H AST 256 H ALT 282 H Alkaline Phosphatase 141 H Total Protein 7.4 Albumin 4.3 Lipase 765 H 11/16/24 11/16/24 03:38 05:51 WBC 10.3 H RBC 4.54 L Hgb 14.2 Hct 41.7 L MCV 91.9 MCH 31.3 MCHC 34.1 RDW 13.6 Plt Count 136 L MPV 11.0 H % Immature Plt Fraction 10.3 Sodium 133 L Potassium 3.5 Chloride 96 L Carbon Dioxide 28 Anion Gap 9 BUN 3 L Creatinine 0.52 L Estim Creat Clear Calc 189 Estimated GFR > 60 Glucose 125 H POC Capillary Glucose 120 H Calcium 8.9 Total Bilirubin 4.2 H AST 200 H ALT 246 H Alkaline Phosphatase 116 Total Protein 7.0 Albumin 4.0 Lipase Quality VTE Prophylaxis VTE prophylaxis: pharmacologic ordered Hospitalist MIPS Advance Care Plan I have confirmed that the patient's Advanced Care Plan is present, code status is documented, or surrogate decision maker is listed in patient medical record.: Yes Medication Reconciliation I have utilized all available resources to obtain, update and review the patients current medications (includes all prescriptions, OTC, herbals, cannabis, and nutritional supplements).: Yes
[2024-11-16] MEDS: LACTATED RINGERS 1,000 ML 100 ML IV CONT ×2 (13:42→23:13)
[2024-11-16 14:16] LABS: Glucose Point of Care 180 mg/dl (65-105)
--- NOTE | 2024-11-16 18:17 | PC.NURSE ---
This patient, Alonso Bender, was transferred to [facility] on 11/16/24 at 1816. Personal belongings sent with patient. Report given to Stephie. Appropriate documentation sent with patient.
--- NOTE | 2024-11-16 18:19 | PC.NURSE ---
On 11/16/24, the COMMUNITY LIVING SPECIALIST, Stephie Stafford], provided care and completed [employer] documentation on this patient. I have reviewed the COMMUNITY LIVING SPECIALIST's documentation and agree with the findings.
--- NOTE | 2024-11-16 18:19 | PC.NURSE ---
This patient, Alonso Bender, was received from [facility] on 11/16/24 at 1819. Patient/family oriented to unit policies and routines. Report per ERIKA Card.
--- NOTE | 2024-11-16 18:37 | P.PNGI_ITS ---
Progress Note: A&P Assessment and Plan (1) Acute on chronic pancreatitis: Code(s): K85.90 - Acute pancreatitis without necrosis or infection, unspecified; K86.1 - Other chronic pancreatitis Status: Acute Assessment and Plan: clinically better he is trying to reduce amount of pain meds diet as tolerated hopefully if pain better he can go home tomorrow he understands that needs to stop drinking alcohol (2) Generalized abdominal pain: Code(s): R10.84 - Generalized abdominal pain Status: Acute (3) Alcohol dependence: Qualifiers: Substance use status: unspecified alcohol-induced disorder Qualified Code(s): F10.29 - Alcohol dependence with unspecified alcohol-induced disorder Code(s): F10.20 - Alcohol dependence, uncomplicated Status: Acute Assessment and Plan: [facility] thiamine (4) Elevated transaminase level: Code(s): R74.01 - Elevation of levels of liver transaminase levels Status: Acute Assessment and Plan: from pancreatitis and alcoholic hepatitis Subjective Date/time seen: 11/16/24 18:37 Interval history: tolerating diet pain has improved today and feeling better Review of Systems Review of Systems: All systems reviewed & are unremarkable except as noted in HPI and below Exam Const: General: comfortable and no acute distress HENMT: Face/Nose/Sinus: Normal nares present Eyes: General: appearance normal, both eyes and all related structures Neck: Neck: supple Resp: Auscultation: clear to auscultation bilaterally Cardio: Rate: regular rate Rhythm: regular rhythm GI: Inspection: non-distended GI Palp: Yes Soft to palpation Auscultation: normal bowel sounds Other: minimal ttp, no rebound, better Skin: General skin exam: normal color Neuro: Speech: normal speech Motor exam (neuro): 5/5 motor strength present throughout Extrem: General: normal to inspection Psych: Affect: Anxious affect present Objective Data Vital Signs Vital Signs: Vital Signs - 24 hr 11/15/24 19:33 11/15/24 20:00 11/15/24 20:00 Temperature 97.9 F Pulse Rate 90 73 Pulse Rate [Monitor] 71 Respiratory Rate 20 Blood Pressure 160/97 H Pulse Oximetry 98 Oxygen Delivery 11/15/24 23:24 11/16/24 00:00 11/16/24 00:02 Temperature 98.3 F Pulse Rate 78 76 Pulse Rate [Monitor] 71 Respiratory Rate 20 Blood Pressure 159/89 H Pulse Oximetry 94 Oxygen Delivery 11/16/24 01:22 11/16/24 04:00 11/16/24 04:00 Temperature 98.0 F Pulse Rate 77 77 Pulse Rate [Monitor] 73 Respiratory Rate 18 Blood Pressure 137/82 Pulse Oximetry 95 Oxygen Delivery 11/16/24 04:00 11/16/24 08:00 11/16/24 08:00 Temperature 97.5 F L Pulse Rate 83 Pulse Rate [Monitor] 72 Respiratory Rate 18 Blood Pressure 158/95 H Pulse Oximetry 99 Oxygen Delivery Room Air 11/16/24 08:00 11/16/24 12:00 11/16/24 12:00 Temperature 97.9 F Pulse Rate 82 85 87 Pulse Rate [Monitor] Respiratory Rate 20 Blood Pressure 133/84 Pulse Oximetry 99 Oxygen Delivery 11/16/24 16:00 11/16/24 16:00 Temperature 97.6 F Pulse Rate 80 82 Pulse Rate [Monitor] Respiratory Rate 18 Blood Pressure 140/87 Pulse Oximetry 97 Oxygen Delivery Intake/Output Intake/Output: Intake & Output 11/13/24 11/14/24 11/15/24 11/16/24 23:59 23:59 23:59 23:59 Intake Total 1000 5693.2 4760 Output Total 2600 2300 Balance 1000 3093.2 2460 Meds/Results Medications: Active Medications Generic Name Dose Route Start Last Admin Trade Name Freq PRN Reason Stop Dose Admin Chlordiazepoxide HCl 25 mg 11/15/24 19:54 11/16/24 01:28 Chlordiazepoxide (*Crx) 25 Mg Capsule PO 25 mg Q4H PRN Administration CIWA 8-15 Chlordiazepoxide HCl 50 mg 11/15/24 19:54 11/15/24 20:25 Chlordiazepoxide (*Crx) 25 Mg Capsule PO 50 mg Q4H PRN Administration CIWA 16 or greater Folic Acid 1 mg 11/16/24 09:00 11/16/24 08:49 Folic Acid 1 Mg/0.2 Ml Inj IV PUSH 1 mg QAM CECY Administration Hydromorphone HCl 0.5 mg 11/16/24 07:00 11/16/24 16:45 Hydromorphone Hcl Inj (*Crx) 2 Mg/Ml Vial IV PUSH 0.5 mg Q3H PRN Administration Pain Rated 5 OR LESS Lactated Ringer's 1,000 mls @ 100 mls/hr 11/14/24 22:35 11/16/24 13:42 Lr - Lactated Ringers Iv IV CONT 100 mls/hr .Q10H CECY Administration Ketorolac Tromethamine 15 mg 11/16/24 10:43 11/16/24 15:21 Ketorolac 15 Mg/Ml Vial (*Bkc) IV PUSH 11/18/24 19:59 15 mg Q6H PRN Administration Abdominal Cramping Nicotine 1 patch 11/16/24 09:00 11/16/24 08:50 Nicotine (*Pbkc) 21 Mg Patch TRANSDERM 1 patch DAILY CECY Administration Ondansetron HCl 4 mg 11/14/24 22:41 11/16/24 15:21 Ondansetron Inj 4 Mg/2 Ml Vial IV PUSH 4 mg Q6H PRN Administration Nausea And Vomiting Pantoprazole Sodium 40 mg 11/15/24 09:00 11/16/24 08:50 Pantoprazole Sodium Iv 40 Mg Vial IV PUSH 40 mg Q12HR CECY Administration Tramadol HCl 50 mg 11/15/24 17:01 11/16/24 06:34 Tramadol Hcl (*Crx) 50 Mg Tablet PO 50 mg Q4H PRN Administration PAIN RATED 5 OR LESS Radiology Results: ITS Impressions Abdomen/Pelvis CT 11/14/24 18:39 IMPRESSION: Acute interstitial edematous pancreatitis, as detailed above. Necrosis absent. No well-circumscribed peripancreatic fluid collections. No additional findings suggesting acute hemorrhage. Labs Labs: Laboratory Results - last 24 hr 11/15/24 11/15/24 11/15/24 18:49 19:53 23:45 WBC RBC Hgb Hct MCV MCH MCHC RDW Plt Count MPV % Immature Plt Fraction Sodium 131 L Potassium 3.4 Chloride 95 L Carbon Dioxide 25 Anion Gap 11 BUN 2 L Creatinine 0.52 L Estim Creat Clear Calc 189 Estimated GFR > 60 Glucose 140 H POC Capillary Glucose 128 H 136 H Calcium 8.6 Total Bilirubin 3.7 H AST 256 H ALT 282 H Alkaline Phosphatase 141 H Total Protein 7.4 Albumin 4.3 Lipase 765 H 11/16/24 11/16/24 11/16/24 03:38 05:51 11:27 WBC 10.3 H RBC 4.54 L Hgb 14.2 Hct 41.7 L MCV 91.9 MCH 31.3 MCHC 34.1 RDW 13.6 Plt Count 136 L MPV 11.0 H % Immature Plt Fraction 10.3 Sodium 133 L Potassium 3.5 Chloride 96 L Carbon Dioxide 28 Anion Gap 9 BUN 3 L Creatinine 0.52 L Estim Creat Clear Calc 189 Estimated GFR > 60 Glucose 125 H POC Capillary Glucose 120 H 180 H Calcium 8.9 Total Bilirubin 4.2 H AST 200 H ALT 246 H Alkaline Phosphatase 116 Total Protein 7.0 Albumin 4.0 Lipase
[2024-11-16 19:43] LABS: Glucose Point of Care 130 mg/dl (65-105)
[2024-11-16 21:11] LABS: Glucose Point of Care 142 mg/dl (65-105)
[2024-11-17] VITALS (8 sets, daily range): BP systolic 137–160; BP diastolic 77–108; PULSE 71–89; RESP 14–18; TEMP 36.2–36.5; O2SAT 98–100
[2024-11-17] MEDS: ONDANSETRON INJ 4 MG/2 ML VIAL IV PUSH (02:50)
[2024-11-17] MEDS: HYDROmorphone HCL INJ (*CRX) 2 MG/ML VIAL 0.5 MG IV PUSH ×5 (02:52→21:44)
[2024-11-17 06:15] LABS: Hematocrit 43.1 % (42.0-52.0); Hemoglobin 14.3 g/dL (14.0-18.0); Immature Platelet Fraction Pct 11.5 % (0.9-11.2); Mean Corpuscular HGB Conc 33.2 g/dl (32-36); Mean Corpuscular Hemoglobin 31.4 pg (26-34); Mean Corpuscular Volume 94.7 fl (80-100); Mean Platelet Volume 11.8 fl (7.4-10.4); Platelet Count Result 122 k/mm3 (150-375); Red Blood Count 4.55 M/mm3 (4.6-6.20); Red Cell Distribution Width 14.1 % (11.5-14.5); White Blood Count 5.7 K/mm3 (4.5-10.0)
[2024-11-17 06:23] LABS: Alanine Aminotransferase 235 U/L (6-50); Alkaline Phosphatase 131 U/L (38-126); Anion Gap 7 mmol/L (4-12); Aspartate Amino Transferase 243 U/L (17-59); Bilirubin,Total 4.6 mg/dL (0.2-1.3); Blood Urea Nitrogen 3 mg/dL (9-20); Carbon Dioxide 30 mmol/L (22-30); Chloride 100 mmol/L (98-107); Estimated CRCL calculation 156 ml/min; Estimated Glomerular Filt Rate > 60; Glucose 113 mg/dL (65-110); Potassium 3.7 mmol/L (3.4-5.0); Sodium 137 mmol/L (137-145); Total Protein 7.2 g/dL (6.3-8.2)
[2024-11-17] MEDS: KETOROLAC 15 MG/ML VIAL (*BKC) IV PUSH ×3 (06:36→23:15)
[2024-11-17] MEDS: PANTOPRAZOLE SODIUM IV 40 MG VIAL IV PUSH ×2 (10:55→21:31)
[2024-11-17] MEDS: NICOTINE (*PBKC) 21 MG PATCH 1 PATCH TRANSDERM (10:59)
[2024-11-17] MEDS: FOLIC ACID 1 MG/0.2 ML INJ IV PUSH (12:41)
[2024-11-17 12:46] LABS: Glucose Point of Care 88 mg/dl (65-105)
[2024-11-17] MEDS: hydrALAZINE HCL 20 MG/ML VIAL 10 MG IV PUSH (14:42)
--- NOTE | 2024-11-17 14:56 | P.PNIM_ITS ---
Progress Note: A&P Assessment and Plan (1) Acute pancreatitis: Code(s): K85.90 - Acute pancreatitis without necrosis or infection, unspecified Status: Acute Assessment and Plan: Possibly due to alcoholism Elevated lipase Monitor hematocrit and creatinine NPO Started on IV hydration LR Strict input and output monitoring Monitor electrolytes Pain control and antiemetics as needed Right upper quadrant ultrasound GI consulted and appreciate recommendations If no significant can not improvement in 72 hours will get repeat CT with contrast CT abdomen :shows Acute interstitial edematous pancreatitis, as detailed above. Necrosis absent. No well-circumscribed peripancreatic fluid collections. No additional findings suggesting acute hemorrhage (2) Alcohol abuse: Code(s): F10.10 - Alcohol abuse, uncomplicated Status: Acute Assessment and Plan: IV thiamine and folic acid Monitor CIWA Scheduled Librium AST 198, ALT 276, ALP 109 Elevated LFT Possibly due to alcoholic hepatitis (3) Alcoholic hepatitis: Code(s): K70.10 - Alcoholic hepatitis without ascites Status: Acute Assessment and Plan: As above (4) Elevated blood pressure reading: Code(s): R03.0 - Elevated blood-pressure reading, without diagnosis of hypertension Status: Acute Assessment and Plan: Possibly due to pain Subjective Date/time seen: 11/17/24 14:56 Interval history: Underwent a right upper quadrant ultrasound and MRCP pending results. Reporting pain is better compared to when he was admitted. Advised to space out the pain medication interval and encouraged oral fluid intake Review of Systems Review of Systems: 12 systems were reviewed and are negativ e except for as per HPI. Exam Narrative: General: Nontoxic-appearing male in the semi-Flores position in bed in moderate distress due to pain. Weight: 80.3 kg. BMI: 24.7. HEENT: PERRL, EOMI. Sclera anicteric. Tacky mucous membranes. Neck: Supple. Respiratory: Lungs are clear to auscultation bilaterally. Cardiovascular: Regular rate and rhythm with S1-S2. Gastrointestinal: Abdomen is soft and nondistended with hypoactive bowel sounds.He is tender to palpation throughout the upper abdomen. No guarding or rebound tenderness. Skin: Warm and dry. No rash or lesions on limited exam. Extremities: No cyanosis, clubbing, or edema. Radial and pedal pulses intact. Neurological: Alert. Cranial nerves 2-12 are grossly intact. No tremors. No gross focal deficits to casual conversation. Psychiatric: Cooperative with appropriate mood and affect. Objective Data Vital Signs Vital Signs: Vital Signs - 24 hr 11/16/24 16:00 11/16/24 16:00 11/16/24 20:00 Temperature 97.6 F 97.1 F L Pulse Rate 80 82 83 Pulse Rate [Monitor] Respiratory Rate 18 18 Blood Pressure 140/87 141/95 H Pulse Oximetry 97 98 Oxygen Delivery 11/16/24 20:00 11/16/24 20:00 11/17/24 00:00 Temperature Pulse Rate 87 Pulse Rate [Monitor] 83 71 Respiratory Rate Blood Pressure Pulse Oximetry Oxygen Delivery 11/17/24 00:00 11/17/24 04:00 11/17/24 04:00 Temperature Pulse Rate 89 73 Pulse Rate [Monitor] 72 Respiratory Rate Blood Pressure Pulse Oximetry Oxygen Delivery 11/17/24 06:00 11/17/24 08:00 11/17/24 14:00 Temperature 97.2 F L 97.6 F Pulse Rate 88 80 Pulse Rate [Monitor] Respiratory Rate 18 14 Blood Pressure 137/77 160/108 H Pulse Oximetry 100 98 Oxygen Delivery Room Air Intake/Output Intake/Output: Intake & Output 11/14/24 11/15/24 11/16/24 11/17/24 23:59 23:59 23:59 23:59 Intake Total 1000 5693.2 5911.7 550 Output Total 2600 3800 Balance 1000 3093.2 2111.7 550 Meds/Results Medications: Active Medications Generic Name Dose Route Start Last Admin Trade Name Freq PRN Reason Stop Dose Admin Chlordiazepoxide HCl 25 mg 11/15/24 19:54 11/16/24 01:28 Chlordiazepoxide (*Crx) 25 Mg Capsule PO 25 mg Q4H PRN Administration CIWA 8-15 Chlordiazepoxide HCl 50 mg 11/15/24 19:54 11/15/24 20:25 Chlordiazepoxide (*Crx) 25 Mg Capsule PO 50 mg Q4H PRN Administration CIWA 16 or greater Folic Acid 1 mg 11/16/24 09:00 11/17/24 12:41 Folic Acid 1 Mg/0.2 Ml Inj IV PUSH 1 mg QAM CECY Administration Hydromorphone HCl 0.5 mg 11/16/24 07:00 11/17/24 12:45 Hydromorphone Hcl Inj (*Crx) 2 Mg/Ml Vial IV PUSH 0.5 mg Q3H PRN Administration Pain Rated 5 OR LESS Lactated Ringer's 1,000 mls @ 100 mls/hr 11/14/24 22:35 11/16/24 23:13 Lr - Lactated Ringers Iv IV CONT 100 mls/hr .Q10H CECY Administration Ketorolac Tromethamine 15 mg 11/16/24 10:43 11/17/24 06:36 Ketorolac 15 Mg/Ml Vial (*Bkc) IV PUSH 11/18/24 19:59 15 mg Q6H PRN Administration Abdominal Cramping Nicotine 1 patch 11/16/24 09:00 11/17/24 10:59 Nicotine (*Pbkc) 21 Mg Patch TRANSDERM 1 patch DAILY CECY Administration Ondansetron HCl 4 mg 11/14/24 22:41 11/17/24 02:50 Ondansetron Inj 4 Mg/2 Ml Vial IV PUSH 4 mg Q6H PRN Administration Nausea And Vomiting Pantoprazole Sodium 40 mg 11/15/24 09:00 11/17/24 10:55 Pantoprazole Sodium Iv 40 Mg Vial IV PUSH 40 mg Q12HR CECY Administration Tramadol HCl 50 mg 11/15/24 17:01 11/16/24 06:34 Tramadol Hcl (*Crx) 50 Mg Tablet PO 50 mg Q4H PRN Administration PAIN RATED 5 OR LESS Radiology Results: ITS Impressions Abdomen/Pelvis CT 11/14/24 18:39 IMPRESSION: Acute interstitial edematous pancreatitis, as detailed above. Necrosis absent. No well-circumscribed peripancreatic fluid collections. No additional findings suggesting acute hemorrhage. Abdomen Ultrasound 11/17/24 11:46 IMPRESSION: Fat infiltration. Otherwise, normal limited abdominal ultrasound. Labs Labs: Laboratory Results - last 24 hr 11/16/24 11/16/24 11/17/24 16:35 20:13 05:31 WBC 5.7 RBC 4.55 L Hgb 14.3 Hct 43.1 MCV 94.7 MCH 31.4 MCHC 33.2 RDW 14.1 Plt Count 122 L MPV 11.8 H % Immature Plt Fraction 11.5 H Sodium 137 Potassium 3.7 Chloride 100 Carbon Dioxide 30 Anion Gap 7 BUN 3 L Creatinine 0.64 L Estim Creat Clear Calc 156 Estimated GFR > 60 Glucose 113 H POC Capillary Glucose 130 H 142 H Calcium 9.0 Total Bilirubin 4.6 H AST 243 H ALT 235 H Alkaline Phosphatase 131 H Total Protein 7.2 Albumin 4.0 11/17/24 12:41 WBC RBC Hgb Hct MCV MCH MCHC RDW Plt Count MPV % Immature Plt Fraction Sodium Potassium Chloride Carbon Dioxide Anion Gap BUN Creatinine Estim Creat Clear Calc Estimated GFR Glucose POC Capillary Glucose 88 Calcium Total Bilirubin AST ALT Alkaline Phosphatase Total Protein Albumin Quality VTE Prophylaxis VTE prophylaxis: pharmacologic ordered Hospitalist [facility] Advance Care Plan I have confirmed that the patient's Advanced Care Plan is present, code status is documented, or surrogate decision maker is listed in patient medical record.: Yes Medication Reconciliation The patient is not eligible for med reconciliation; the patient is in a emergent medical situation where delaying treatment would jeopardize the patients health.: Yes
--- NOTE | 2024-11-17 16:57 | WPDGIPROGNO ---
Progress Note: A&P Assessment and Plan (1) Acute on chronic pancreatitis: Code(s): K85.90 - Acute pancreatitis without necrosis or infection, unspecified; K86.1 - Other chronic pancreatitis Status: Acute Assessment and Plan: overall better mrcp was ordered because elevated bili, normal bile duct, no complicated pancreatitis without worrisome findings low fat diet as tolerated and most importantly he should not drink alcohol anymore probably home tomorrow (2) Alcoholic hepatitis: Code(s): K70.10 - Alcoholic hepatitis without ascites Status: Acute Assessment and Plan: with elevated lft's monitor (3) Generalized abdominal pain: Code(s): R10.84 - Generalized abdominal pain Status: Acute Assessment and Plan: improving (4) Alcohol dependence: Qualifiers: Substance use status: unspecified alcohol-induced disorder Qualified Code(s): F10.29 - Alcohol dependence with unspecified alcohol-induced disorder Code(s): F10.20 - Alcohol dependence, uncomplicated Status: Acute Assessment and Plan: [facility] protocol thiamine (5) Elevated transaminase level: Code(s): R74.01 - Elevation of levels of liver transaminase levels Status: Acute Assessment and Plan: from pancreatitis and alcoholic hepatitis Subjective Date/time seen: 11/17/24 16:57 Interval history: less pain, eating but only small portions at time otherwise will get more pain he is hoping to go home tomorrow Review of Systems Review of Systems: All systems reviewed & are unremarkable except as noted in HPI and below Exam Const: General: comfortable and no acute distress HENMT: Face/Nose/Sinus: Normal nares present Eyes: General: appearance normal, both eyes and all related structures Neck: Neck: supple Resp: Auscultation: clear to auscultation bilaterally Cardio: Rate: regular rate Rhythm: regular rhythm GI: Inspection: non-distended GI Palp: Yes Soft to palpation Auscultation: normal bowel sounds Other: minimal ttp, no rebound, better Skin: General skin exam: normal color Neuro: Speech: normal speech Motor exam (neuro): 5/5 motor strength present throughout Extrem: General: normal to inspection Psych: Affect: Anxious affect present Objective Data Vital Signs Vital Signs: Vital Signs - 24 hr 11/16/24 20:00 11/16/24 20:00 11/16/24 20:00 Temperature 97.1 F L Pulse Rate 83 87 Pulse Rate [Monitor] 83 Respiratory Rate 18 Blood Pressure 141/95 H Pulse Oximetry 98 Oxygen Delivery 11/17/24 00:00 11/17/24 00:00 11/17/24 04:00 Temperature Pulse Rate 89 Pulse Rate [Monitor] 71 72 Respiratory Rate Blood Pressure Pulse Oximetry Oxygen Delivery 11/17/24 04:00 11/17/24 06:00 11/17/24 08:00 Temperature 97.2 F L Pulse Rate 73 88 Pulse Rate [Monitor] Respiratory Rate 18 Blood Pressure 137/77 Pulse Oximetry 100 Oxygen Delivery Room Air 11/17/24 14:00 11/17/24 15:41 Temperature 97.6 F Pulse Rate 80 Pulse Rate [Monitor] Respiratory Rate 14 Blood Pressure 160/108 H 153/84 H Pulse Oximetry 98 Oxygen Delivery Intake/Output Intake/Output: Intake & Output 11/14/24 11/15/24 11/16/24 11/17/24 23:59 23:59 23:59 23:59 Intake Total 1000 5693.2 5911.7 550 Output Total 2600 3800 Balance 1000 3093.2 2111.7 550 Meds/Results Medications: Active Medications Generic Name Dose Route Start Last Admin Trade Name Freq PRN Reason Stop Dose Admin Chlordiazepoxide HCl 25 mg 11/15/24 19:54 11/16/24 01:28 Chlordiazepoxide (*Crx) 25 Mg Capsule PO 25 mg Q4H PRN Administration CIWA 8-15 Chlordiazepoxide HCl 50 mg 11/15/24 19:54 11/15/24 20:25 Chlordiazepoxide (*Crx) 25 Mg Capsule PO 50 mg Q4H PRN Administration CIWA 16 or greater Folic Acid 1 mg 11/16/24 09:00 11/17/24 12:41 Folic Acid 1 Mg/0.2 Ml Inj IV PUSH 1 mg QAM CECY Administration Hydralazine HCl 10 mg 11/17/24 16:40 Hydralazine Hcl 20 Mg/Ml Vial IV PUSH Q8H PRN Blood Pressure - High Hydromorphone HCl 0.5 mg 11/16/24 07:00 11/17/24 16:21 Hydromorphone Hcl Inj (*Crx) 2 Mg/Ml Vial IV PUSH 0.5 mg Q3H PRN Administration Pain Rated 5 OR LESS Lactated Ringer's 1,000 mls @ 100 mls/hr 11/14/24 22:35 11/16/24 23:13 Lr - Lactated Ringers Iv IV CONT 100 mls/hr .Q10H CECY Administration Ketorolac Tromethamine 15 mg 11/16/24 10:43 11/17/24 16:50 Ketorolac 15 Mg/Ml Vial (*Bkc) IV PUSH 11/18/24 19:59 15 mg Q6H PRN Administration Abdominal Cramping Nicotine 1 patch 11/16/24 09:00 11/17/24 10:59 Nicotine (*Pbkc) 21 Mg Patch TRANSDERM 1 patch DAILY CECY Administration Ondansetron HCl 4 mg 11/14/24 22:41 11/17/24 02:50 Ondansetron Inj 4 Mg/2 Ml Vial IV PUSH 4 mg Q6H PRN Administration Nausea And Vomiting Pantoprazole Sodium 40 mg 11/15/24 09:00 11/17/24 10:55 Pantoprazole Sodium Iv 40 Mg Vial IV PUSH 40 mg Q12HR CECY Administration Tramadol HCl 50 mg 11/15/24 17:01 11/16/24 06:34 Tramadol Hcl (*Crx) 50 Mg Tablet PO 50 mg Q4H PRN Administration PAIN RATED 5 OR LESS Radiology Results: ITS Impressions Abdomen/Pelvis CT 11/14/24 18:39 IMPRESSION: Acute interstitial edematous pancreatitis, as detailed above. Necrosis absent. No well-circumscribed peripancreatic fluid collections. No additional findings suggesting acute hemorrhage. Abdomen Ultrasound 11/17/24 11:46 IMPRESSION: Fat infiltration. Otherwise, normal limited abdominal ultrasound. MRCP 11/17/24 13:12 IMPRESSION: 1. Radiographic uncomplicated acute interstitial pancreatitis. 2. No cholelithiasis/choledocholithiasis or intra or extra hepatic biliary ductal dilation. 3. Diffuse hepatic steatosis. Labs Labs: Laboratory Results - last 24 hr 11/16/24 11/16/24 11/17/24 16:35 20:13 05:31 WBC 5.7 RBC 4.55 L Hgb 14.3 Hct 43.1 MCV 94.7 MCH 31.4 MCHC 33.2 RDW 14.1 Plt Count 122 L MPV 11.8 H % Immature Plt Fraction 11.5 H Sodium 137 Potassium 3.7 Chloride 100 Carbon Dioxide 30 Anion Gap 7 BUN 3 L Creatinine 0.64 L Estim Creat Clear Calc 156 Estimated GFR > 60 Glucose 113 H POC Capillary Glucose 130 H 142 H Calcium 9.0 Total Bilirubin 4.6 H AST 243 H ALT 235 H Alkaline Phosphatase 131 H Total Protein 7.2 Albumin 4.0 11/17/24 12:41 WBC RBC Hgb Hct MCV MCH MCHC RDW Plt Count MPV % Immature Plt Fraction Sodium Potassium Chloride Carbon Dioxide Anion Gap BUN Creatinine Estim Creat Clear Calc Estimated GFR Glucose POC Capillary Glucose 88 Calcium Total Bilirubin AST ALT Alkaline Phosphatase Total Protein Albumin
[2024-11-17 18:37] LABS: Glucose Point of Care 128 mg/dl (65-105)
--- NOTE | 2024-11-17 19:52 | PC.NURSE ---
On 11/17/24, the NETWORK CONTROL SUPERVISOR, [Stephie GARRETT ], provided care and completed [facility] documentation on this patient. I have reviewed the NETWORK CONTROL SUPERVISOR's documentation and agree with the findings.
[2024-11-17 22:52] LABS: Glucose Point of Care 148 mg/dl (65-105)
[2024-11-18] VITALS (9 sets, daily range): BP systolic 144–155; BP diastolic 80–97; PULSE 73–109; RESP 16–18; TEMP 36.5–38.9; O2SAT 97–100
[2024-11-18] MEDS: HYDROmorphone HCL INJ (*CRX) 2 MG/ML VIAL 0.5 MG IV PUSH ×7 (02:02→22:44)
[2024-11-18] MEDS: LACTATED RINGERS 1,000 ML 100 ML IV CONT ×2 (02:48→15:46)
[2024-11-18 06:49] LABS: Hematocrit 43.3 % (42.0-52.0); Hemoglobin 14.5 g/dL (14.0-18.0); Mean Corpuscular HGB Conc 33.5 g/dl (32-36); Mean Corpuscular Hemoglobin 31.9 pg (26-34); Mean Corpuscular Volume 95.2 fl (80-100); Mean Platelet Volume 12.1 fl (7.4-10.4); Platelet Count Result 149 k/mm3 (150-375); Red Blood Count 4.55 M/mm3 (4.6-6.20); Red Cell Distribution Width 14.6 % (11.5-14.5); White Blood Count 8.4 K/mm3 (4.5-10.0)
[2024-11-18 07:17] LABS: Alanine Aminotransferase 265 U/L (6-50); Albumin Level 3.9 g/dL (3.5-5.1); Alkaline Phosphatase 141 U/L (38-126); Anion Gap 8 mmol/L (4-12); Aspartate Amino Transferase 341 U/L (17-59); Calcium 9.3 mg/dL (8.4-10.2); Carbon Dioxide 29 mmol/L (22-30); Chloride 100 mmol/L (98-107); Estimated CRCL calculation 146 ml/min; Estimated Glomerular Filt Rate > 60; Glucose 156 mg/dL (65-110); Potassium 3.7 mmol/L (3.4-5.0); Sodium 137 mmol/L (137-145); Total Protein 7.3 g/dL (6.3-8.2)
[2024-11-18 08:40] LABS: Blood Urea Nitrogen < 2 mg/dL (9-20)
[2024-11-18] MEDS: KETOROLAC 15 MG/ML VIAL (*BKC) IV PUSH ×2 (08:56→17:35)
[2024-11-18] MEDS: PANTOPRAZOLE SODIUM IV 40 MG VIAL IV PUSH ×2 (08:56→21:10)
[2024-11-18] MEDS: chlordiazePOXIDE (*CRX) 25 MG CAPSULE PO (08:58)
[2024-11-18] MEDS: NICOTINE (*PBKC) 21 MG PATCH 1 PATCH TRANSDERM (09:01)
[2024-11-18] MEDS: FOLIC ACID 1 MG/0.2 ML INJ IV PUSH (09:01)
--- NOTE | 2024-11-18 10:59 | PM.DS ---
DS: Admitting Diagnosis Discharge Date 11/18/2024 Admitting Diagnosis Abdominal pain DS: Discharge Diagnosis Discharge Diagnosis (1) Acute pancreatitis: Code(s): K85.90 - Acute pancreatitis without necrosis or infection, unspecified Status: Acute Assessment and Plan: Possibly due to alcoholism Elevated lipase Monitor hematocrit and creatinine NPO Started on IV hydration LR Strict input and output monitoring Monitor electrolytes Pain control and antiemetics as needed Right upper quadrant ultrasound GI consulted and appreciate recommendations If no significant can not improvement in 72 hours will get repeat CT with contrast CT abdomen :shows Acute interstitial edematous pancreatitis, as detailed above. Necrosis absent. No well-circumscribed peripancreatic fluid collections. No additional findings suggesting acute hemorrhage (2) Alcohol abuse: Code(s): F10.10 - Alcohol abuse, uncomplicated Status: Acute Assessment and Plan: IV thiamine and folic acid Monitor CIWA Scheduled Librium AST 198, ALT 276, ALP 109 Elevated LFT Possibly due to alcoholic hepatitis (3) Alcoholic hepatitis: Code(s): K70.10 - Alcoholic hepatitis without ascites Status: Acute Assessment and Plan: As above (4) Elevated blood pressure reading: Code(s): R03.0 - Elevated blood-pressure reading, without diagnosis of hypertension Status: Acute Assessment and Plan: Possibly due to pain DS: Summary Hospital Course Hospital Course: 29-year-old male with history of alcohol abuse pancreatitis, necrotic pancreatitis, pseudocyst, pancreatic stent with subsequent removal, and 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 He began experiencing severe, sharp left upper abdominal pain yesterday similar to prior episodes of pancreatitis. It radiates somewhat through to the back and is associated with nausea and loose stools. He has been taking ibuprofen without much benefit. He denies fever, vomiting, hematemesis, hematochezia, melena, hallucinations, and tremors. He is still drinking 10 to 12 shooters per day of alcohol. In the ED: Blood pressure was 144/98 on arrival. The remainder of his vital signs were stable. Labs were significant for a potassium of 3.3, total bilirubin 1.1, AST 297, ALT 362, alkaline phosphatase 141, lipase 427, ethyl alcohol 128. CT of the abdomen and pelvis showed acute interstitial edematous pancreatitis. He was given a L of normal saline, pantoprazole, ondansetron, morphine, and was started on a banana bag. He is being admitted in this setting for further treatment of pancreatitis. 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 Patient drinks every day liquor and reports that he drinks heavy unable to give the quantity. Patient last year had endoscopic stent placement at [facility] and it was later removed. GI was consulted and no further recommendation. Patient has elevated LFTs and bilirubin and patient underwent ultrasound right upper quadrant which shows the alcoholic steatosis and MRCP was performed which shows diffuse hepatic steatosis and no cholelithiasis/choledocholithiasis or intrahepatic or extrahepatic ductal dilation but evidence of radiographic and complicated acute interstitial pancreatitis. Recommended strongly alcohol cessation. On the day of discharge, the patient was seen and examined. Vital signs were stable. Physical exam were stable and labs were reviewed at length. Discharge instructions, medications, and follow-up appointments were discussed with the patient at length and all day questions were answered. ER warnings were given. Patient needs to follow-up with a air box tester and follow-up with LFTs and bilirubin as outpatient. Patient was able to tolerate a low-fat diet. Status at Discharge Cognitive/behavioral status at discharge: Stable Time Spent with Patient Time attestation: Total time spent providing and/or coordinating discharge services: 45 minutes Exam Narrative: General: Nontoxic-appearing male in the semi-Flores position in bed in moderate distress due to pain. Weight: 80.3 kg. BMI: 24.7. HEENT: PERRL, EOMI. Sclera anicteric. Tacky mucous membranes. Neck: Supple. Respiratory: Lungs are clear to auscultation bilaterally. Cardiovascular: Regular rate and rhythm with S1-S2. Gastrointestinal: Abdomen is soft and nondistended with hypoactive bowel sounds.He is tender to palpation throughout the upper abdomen. No guarding or rebound tenderness. Skin: Warm and dry. No rash or lesions on limited exam. Extremities: No cyanosis, clubbing, or edema. Radial and pedal pulses intact. Neurological: Alert. Cranial nerves 2-12 are grossly intact. No tremors. No gross focal deficits to casual conversation. Psychiatric: Cooperative with appropriate mood and affect. DS: Data Data Completed and Pending Labs on day of discharge: Labs from last 24 hours 11/18/24 11/17/24 11/17/24 05:50 21:42 17:47 WBC 8.4 RBC 4.55 L Hgb 14.5 Hct 43.3 MCV 95.2 MCH 31.9 MCHC 33.5 RDW 14.6 H Plt Count 149 L MPV 12.1 H Sodium 137 Potassium 3.7 Chloride 100 Carbon Dioxide 29 Anion Gap 8 BUN < 2 L Creatinine 0.69 L Estim Creat Clear Calc 146 Estimated GFR > 60 Glucose 156 H POC Capillary Glucose 148 H 128 H Calcium 9.3 Total Bilirubin 4.0 H AST 341 H ALT 265 H Alkaline Phosphatase 141 H Total Protein 7.3 Albumin 3.9 11/17/24 12:41 WBC RBC Hgb Hct MCV MCH MCHC RDW Plt Count MPV Sodium Potassium Chloride Carbon Dioxide Anion Gap BUN Creatinine Estim Creat Clear Calc Estimated GFR Glucose POC Capillary Glucose 88 Calcium Total Bilirubin AST ALT Alkaline Phosphatase Total Protein Albumin Discharge Plan Discharge Attending physician on discharge: Christos Arango Consulting providers: Jamie Miguel; Steven Acosta Discharging Clinician: Christos Arango Anticipated Discharge Date/Time: 11/18/24 11:05 Patient Disposition: Home Activity: as tolerated Diet: low fat Discharge Instructions: Needs to follow-up with the air box tester Recommend strongly on alcohol cessation Patient needs alcohol rehabilitation. Patient Instructions: Antibiotic Form Patient Language: Greek Stand Alone Forms: General Discharge Information Follow-up/Referrals: PHYSICIAN,DOCUMENT PHOTOGRAPHER [Primary Care Provider] - Steven Acosta MD [Physician] - Jamie Miguel MD [Physician] - Discharge Medications: No Action No Home Medications Date of admission: 11/16/24 16:12 Primary Care Provider: PHYSICIAN,DOCUMENT PHOTOGRAPHER Admitting Provider: Hi Dickerson Attending physician on admission: Hi Dickerson Condition: Stable
--- NOTE | 2024-11-18 14:31 | P.PNIM_ITS ---
Progress Note: A&P Assessment and Plan (1) Acute pancreatitis: Code(s): K85.90 - Acute pancreatitis without necrosis or infection, unspecified Status: Acute Assessment and Plan: Possibly due to alcoholism Elevated lipase Monitor hematocrit and creatinine NPO Started on IV hydration LR Strict input and output monitoring Monitor electrolytes Pain control and antiemetics as needed Right upper quadrant ultrasound GI consulted and appreciate recommendations If no significant can not improvement in 72 hours will get repeat CT with contrast CT abdomen :shows Acute interstitial edematous pancreatitis, as detailed above. Necrosis absent. No well-circumscribed peripancreatic fluid collections. No additional findings suggesting acute hemorrhage (2) Alcohol abuse: Code(s): F10.10 - Alcohol abuse, uncomplicated Status: Acute Assessment and Plan: IV thiamine and folic acid Monitor CIWA Scheduled Librium AST 198, ALT 276, ALP 109 Elevated LFT Possibly due to alcoholic hepatitis (3) Alcoholic hepatitis: Code(s): K70.10 - Alcoholic hepatitis without ascites Status: Acute Assessment and Plan: As above (4) Elevated blood pressure reading: Code(s): R03.0 - Elevated blood-pressure reading, without diagnosis of hypertension Status: Acute Assessment and Plan: Possibly due to pain Subjective Date/time seen: 11/18/24 14:31 Interval history: Holding discharged due to patient reports not feeling well. Episode of high temperature. Ordered blood culture. Review of Systems Review of Systems: 12 systems were reviewed and are negativ e except for as per HPI. Exam Narrative: General: Nontoxic-appearing male in the semi-Flores position in bed in moderate distress due to pain. Weight: 80.3 kg. BMI: 24.7. HEENT: PERRL, EOMI. Sclera anicteric. Tacky mucous membranes. Neck: Supple. Respiratory: Lungs are clear to auscultation bilaterally. Cardiovascular: Regular rate and rhythm with S1-S2. Gastrointestinal: Abdomen is soft and nondistended with hypoactive bowel sounds.He is tender to palpation throughout the upper abdomen. No guarding or rebound tenderness. Skin: Warm and dry. No rash or lesions on limited exam. Extremities: No cyanosis, clubbing, or edema. Radial and pedal pulses intact. Neurological: Alert. Cranial nerves 2-12 are grossly intact. No tremors. No gross focal deficits to casual conversation. Psychiatric: Cooperative with appropriate mood and affect. Objective Data Vital Signs Vital Signs: Vital Signs - 24 hr 11/17/24 15:41 11/17/24 16:00 11/17/24 20:00 Temperature Pulse Rate 89 Pulse Rate [Monitor] 72 Respiratory Rate Blood Pressure 153/84 H Pulse Oximetry Oxygen Delivery 11/17/24 20:00 11/17/24 21:35 11/18/24 00:00 Temperature 97.7 F Pulse Rate 77 88 Pulse Rate [Monitor] 73 Respiratory Rate 14 Blood Pressure 145/89 H Pulse Oximetry 100 Oxygen Delivery 11/18/24 00:00 11/18/24 04:00 11/18/24 04:00 Temperature Pulse Rate 79 86 Pulse Rate [Monitor] 86 Respiratory Rate Blood Pressure Pulse Oximetry Oxygen Delivery 11/18/24 06:53 11/18/24 08:56 11/18/24 08:56 Temperature 98.2 F Pulse Rate 99 99 Pulse Rate [Monitor] Respiratory Rate 16 Blood Pressure 144/89 H Pulse Oximetry 100 Oxygen Delivery Room Air Intake/Output Intake/Output: Intake & Output 11/15/24 11/16/24 11/17/24 11/18/24 23:59 23:59 23:59 23:59 Intake Total 5693.2 5911.7 2572 400 Output Total 2600 3800 Balance 3093.2 2111.7 2572 400 Meds/Results Medications: Active Medications Generic Name Dose Route Start Last Admin Trade Name Freq PRN Reason Stop Dose Admin Chlordiazepoxide HCl 25 mg 11/15/24 19:54 11/18/24 08:58 Chlordiazepoxide (*Crx) 25 Mg Capsule PO 25 mg Q4H PRN Administration CIWA 8-15 Chlordiazepoxide HCl 50 mg 11/15/24 19:54 11/15/24 20:25 Chlordiazepoxide (*Crx) 25 Mg Capsule PO 50 mg Q4H PRN Administration CIWA 16 or greater Folic Acid 1 mg 11/16/24 09:00 11/18/24 09:01 Folic Acid 1 Mg/0.2 Ml Inj IV PUSH 1 mg QAM CECY Administration Hydralazine HCl 10 mg 11/17/24 16:40 Hydralazine Hcl 20 Mg/Ml Vial IV PUSH Q8H PRN Blood Pressure - High Hydromorphone HCl 0.5 mg 11/16/24 07:00 11/18/24 12:34 Hydromorphone Hcl Inj (*Crx) 2 Mg/Ml Vial IV PUSH 0.5 mg Q3H PRN Administration Pain Rated 5 OR LESS Lactated Ringer's 1,000 mls @ 100 mls/hr 11/14/24 22:35 11/18/24 02:48 Lr - Lactated Ringers Iv IV CONT 100 mls/hr .Q10H CECY Administration Ketorolac Tromethamine 15 mg 11/16/24 10:43 11/18/24 08:56 Ketorolac 15 Mg/Ml Vial (*Bkc) IV PUSH 11/18/24 19:59 15 mg Q6H PRN Administration Abdominal Cramping Nicotine 1 patch 11/16/24 09:00 11/18/24 09:01 Nicotine (*Pbkc) 21 Mg Patch TRANSDERM 1 patch DAILY CECY Administration Ondansetron HCl 4 mg 11/14/24 22:41 11/17/24 02:50 Ondansetron Inj 4 Mg/2 Ml Vial IV PUSH 4 mg Q6H PRN Administration Nausea And Vomiting Pantoprazole Sodium 40 mg 11/15/24 09:00 11/18/24 08:56 Pantoprazole Sodium Iv 40 Mg Vial IV PUSH 40 mg Q12HR CECY Administration Tramadol HCl 50 mg 11/15/24 17:01 11/16/24 06:34 Tramadol Hcl (*Crx) 50 Mg Tablet PO 50 mg Q4H PRN Administration PAIN RATED 5 OR LESS Radiology Results: ITS Impressions Abdomen/Pelvis CT 11/14/24 18:39 IMPRESSION: Acute interstitial edematous pancreatitis, as detailed above. Necrosis absent. No well-circumscribed peripancreatic fluid collections. No additional findings suggesting acute hemorrhage. Abdomen Ultrasound 11/17/24 11:46 IMPRESSION: Fat infiltration. Otherwise, normal limited abdominal ultrasound. MRCP 11/17/24 13:12 IMPRESSION: 1. Radiographic uncomplicated acute interstitial pancreatitis. 2. No cholelithiasis/choledocholithiasis or intra or extra hepatic biliary ductal dilation. 3. Diffuse hepatic steatosis. Labs Labs: Laboratory Results - last 24 hr 11/17/24 11/17/24 11/18/24 17:47 21:42 05:50 WBC 8.4 RBC 4.55 L Hgb 14.5 Hct 43.3 MCV 95.2 MCH 31.9 MCHC 33.5 RDW 14.6 H Plt Count 149 L MPV 12.1 H Sodium 137 Potassium 3.7 Chloride 100 Carbon Dioxide 29 Anion Gap 8 BUN < 2 L Creatinine 0.69 L Estim Creat Clear Calc 146 Estimated GFR > 60 Glucose 156 H POC Capillary Glucose 128 H 148 H Calcium 9.3 Total Bilirubin 4.0 H AST 341 H ALT 265 H Alkaline Phosphatase 141 H Total Protein 7.3 Albumin 3.9 Quality VTE Prophylaxis VTE prophylaxis: pharmacologic ordered Hospitalist MIPS Advance Care Plan I have confirmed that the patient's Advanced Care Plan is present, code status is documented, or surrogate decision maker is listed in patient medical record.: Yes Medication Reconciliation I have utilized all available resources to obtain, update and review the patients current medications (includes all prescriptions, OTC, herbals, cannabis, and nutritional supplements).: Yes
--- NOTE | 2024-11-18 16:51 | P.PNGI_ITS ---
Progress Note: A&P Assessment and Plan (1) Acute on chronic pancreatitis: Code(s): K85.90 - Acute pancreatitis without necrosis or infection, unspecified; K86.1 - Other chronic pancreatitis Status: Acute Assessment and Plan: noted fever, could be sirs from pancreatitis, recent mrcp with normal bile duct, no complicated pancreatitis without worrisome findings low fat diet will monitor (2) Alcoholic hepatitis: Code(s): K70.10 - Alcoholic hepatitis without ascites Status: Acute Assessment and Plan: with elevated lft's monitor (3) Generalized abdominal pain: Code(s): R10.84 - Generalized abdominal pain Status: Acute Assessment and Plan: on pain meds prn (4) Alcohol dependence: Qualifiers: Substance use status: unspecified alcohol-induced disorder Qualified Code(s): F10.29 - Alcohol dependence with unspecified alcohol-induced disorder Code(s): F10.20 - Alcohol dependence, uncomplicated Status: Acute Assessment and Plan: [facility] protocol thiamine (5) Elevated transaminase level: Code(s): R74.01 - Elevation of levels of liver transaminase levels Status: Acute Assessment and Plan: from pancreatitis and alcoholic hepatitis Subjective Date/time seen: 11/18/24 16:51 Interval history: some pain today and had fever, discharge was canceled Review of Systems Review of Systems: All systems reviewed & are unremarkable except as noted in HPI and below Exam Const: General: comfortable and no acute distress HENMT: Face/Nose/Sinus: Normal nares present Eyes: General: appearance normal, both eyes and all related structures Neck: Neck: supple Resp: Auscultation: clear to auscultation bilaterally Cardio: Rate: regular rate Rhythm: regular rhythm GI: Inspection: non-distended GI Palp: Yes Soft to palpation Auscultation: normal bowel sounds Other: minimal ttp, no rebound, better Skin: General skin exam: normal color Neuro: Speech: normal speech Motor exam (neuro): 5/5 motor strength present throughout Extrem: General: normal to inspection Psych: Affect: Anxious affect present Objective Data Vital Signs Vital Signs: Vital Signs - 24 hr 11/17/24 20:00 11/17/24 20:00 11/17/24 21:35 Temperature 97.7 F Pulse Rate 77 88 Pulse Rate [Monitor] 72 Respiratory Rate 14 Blood Pressure 145/89 H Pulse Oximetry 100 Oxygen Delivery 11/18/24 00:00 11/18/24 00:00 11/18/24 04:00 Temperature Pulse Rate 79 Pulse Rate [Monitor] 73 86 Respiratory Rate Blood Pressure Pulse Oximetry Oxygen Delivery 11/18/24 04:00 11/18/24 06:53 11/18/24 08:56 Temperature 98.2 F Pulse Rate 86 99 Pulse Rate [Monitor] Respiratory Rate 16 Blood Pressure 144/89 H Pulse Oximetry 100 Oxygen Delivery Room Air 11/18/24 08:56 11/18/24 14:00 11/18/24 15:36 Temperature 101.1 F H Pulse Rate 99 106 H Pulse Rate [Monitor] 109 H Respiratory Rate 18 Blood Pressure 155/97 H Pulse Oximetry 98 Oxygen Delivery Intake/Output Intake/Output: Intake & Output 11/15/24 11/16/24 11/17/24 11/18/24 23:59 23:59 23:59 23:59 Intake Total 5693.2 5911.7 2572 1400 Output Total 2600 3800 Balance 3093.2 2111.7 2572 1400 Meds/Results Medications: Active Medications Generic Name Dose Route Start Last Admin Trade Name Freq PRN Reason Stop Dose Admin Chlordiazepoxide HCl 25 mg 11/15/24 19:54 11/18/24 08:58 Chlordiazepoxide (*Crx) 25 Mg Capsule PO 25 mg Q4H PRN Administration CIWA 8-15 Chlordiazepoxide HCl 50 mg 11/15/24 19:54 11/15/24 20:25 Chlordiazepoxide (*Crx) 25 Mg Capsule PO 50 mg Q4H PRN Administration CIWA 16 or greater Folic Acid 1 mg 11/16/24 09:00 11/18/24 09:01 Folic Acid 1 Mg/0.2 Ml Inj IV PUSH 1 mg QAM CECY Administration Hydralazine HCl 10 mg 11/17/24 16:40 Hydralazine Hcl 20 Mg/Ml Vial IV PUSH Q8H PRN Blood Pressure - High Hydromorphone HCl 0.5 mg 11/16/24 07:00 11/18/24 15:46 Hydromorphone Hcl Inj (*Crx) 2 Mg/Ml Vial IV PUSH 0.5 mg Q3H PRN Administration Pain Rated 5 OR LESS Lactated Ringer's 1,000 mls @ 100 mls/hr 11/14/24 22:35 11/18/24 15:46 Lr - Lactated Ringers Iv IV CONT 100 mls/hr .Q10H CECY Administration Piperacillin/Tazobactam/Dextrose 3.375 gm in 50 mls @ 100 mls/hr 11/18/24 18:00 Zosyn 3.375 Gm/Ns 50 Ml IVPB Q6HR CECY Ketorolac Tromethamine 15 mg 11/16/24 10:43 11/18/24 08:56 Ketorolac 15 Mg/Ml Vial (*Bkc) IV PUSH 11/18/24 19:59 15 mg Q6H PRN Administration Abdominal Cramping Nicotine 1 patch 11/16/24 09:00 11/18/24 09:01 Nicotine (*Pbkc) 21 Mg Patch TRANSDERM 1 patch DAILY CECY Administration Ondansetron HCl 4 mg 11/14/24 22:41 11/17/24 02:50 Ondansetron Inj 4 Mg/2 Ml Vial IV PUSH 4 mg Q6H PRN Administration Nausea And Vomiting Pantoprazole Sodium 40 mg 11/15/24 09:00 11/18/24 08:56 Pantoprazole Sodium Iv 40 Mg Vial IV PUSH 40 mg Q12HR CECY Administration Tramadol HCl 50 mg 11/15/24 17:01 11/16/24 06:34 Tramadol Hcl (*Crx) 50 Mg Tablet PO 50 mg Q4H PRN Administration PAIN RATED 5 OR LESS Radiology Results: ITS Impressions Abdomen Ultrasound 11/17/24 11:46 IMPRESSION: Fat infiltration. Otherwise, normal limited abdominal ultrasound. MRCP 11/17/24 13:12 IMPRESSION: 1. Radiographic uncomplicated acute interstitial pancreatitis. 2. No cholelithiasis/choledocholithiasis or intra or extra hepatic biliary marcial hemant dilation. 3. Diffuse hepatic steatosis. Abdomen/Pelvis CT 11/18/24 16:11 IMPRESSION: Without intravenous contrast, unable to evaluate for the progression of interstitial pancreatitis to necrotic or hemorrhagic pancreatitis. Bladder distention. Hepatomegaly Labs Labs: Laboratory Results - last 24 hr 11/17/24 11/17/24 11/18/24 17:47 21:42 05:50 WBC 8.4 RBC 4.55 L Hgb 14.5 Hct 43.3 MCV 95.2 MCH 31.9 MCHC 33.5 RDW 14.6 H Plt Count 149 L MPV 12.1 H Sodium 137 Potassium 3.7 Chloride 100 Carbon Dioxide 29 Anion Gap 8 BUN < 2 L Creatinine 0.69 L Estim Creat Clear Calc 146 Estimated GFR > 60 Glucose 156 H POC Capillary Glucose 128 H 148 H Calcium 9.3 Total Bilirubin 4.0 H AST 341 H ALT 265 H Alkaline Phosphatase 141 H Total Protein 7.3 Albumin 3.9
[2024-11-18] MEDS: PIPERACILLN/TAZ 3.375GM/NS50ML 3.375 GM/50 ML BAG IVPB (18:01)
[2024-11-18] MEDS: ACETAMINOPHEN 325 MG TABLET 650 MG PO (23:33)
[2024-11-19] VITALS (9 sets, daily range): BP systolic 133–147; BP diastolic 80–96; PULSE 80–100; RESP 16–18; TEMP 36.7–38.1; O2SAT 96–98
[2024-11-19] MEDS: PIPERACILLN/TAZ 3.375GM/NS50ML 3.375 GM/50 ML BAG IVPB ×5 (00:46→22:57)
[2024-11-19] MEDS: HYDROmorphone HCL INJ (*CRX) 2 MG/ML VIAL 0.5 MG IV PUSH ×7 (03:18→22:53)
[2024-11-19] MEDS: LACTATED RINGERS 1,000 ML 100 ML IV CONT ×2 (06:01→18:51)
--- NOTE | 2024-11-19 08:36 | PM.IMPN ---
Progress Note: A&P Assessment and Plan (1) Acute pancreatitis: Code(s): K85.90 - Acute pancreatitis without necrosis or infection, unspecified Status: Acute Assessment and Plan: CT abdomen/pelvis to rule out any necrosis or hemorrhagic pancreatitis Started on Zosyn Pending blood culture Started IV fluids Possibly due to alcoholism Elevated lipase Monitor hematocrit and creatinine for hemoconcentration Started on IV hydration LR Strict input and output monitoring Monitor electrolytes Pain control and antiemetics as needed Right upper quadrant ultrasound GI consulted and appreciate recommendations If no significant can not improvement in 72 hours will get repeat CT with contrast CT abdomen :shows Acute interstitial edematous pancreatitis, as detailed above. Necrosis absent. No well-circumscribed peripancreatic fluid collections. No additional findings suggesting acute hemorrhage (2) Alcohol abuse: Code(s): F10.10 - Alcohol abuse, uncomplicated Status: Acute Assessment and Plan: IV thiamine and folic acid Monitor CIWA Scheduled Librium AST 198, ALT 276, ALP 109 Elevated LFT Possibly due to alcoholic hepatitis (3) Alcoholic hepatitis: Code(s): K70.10 - Alcoholic hepatitis without ascites Status: Acute Assessment and Plan: As above (4) Elevated blood pressure reading: Code(s): R03.0 - Elevated blood-pressure reading, without diagnosis of hypertension Status: Acute Assessment and Plan: Possibly due to pain Subjective Date/time seen: 11/19/24 08:36 Interval history: During evaluation evidence of right forearm cellulitis vs thrombophlebitis. Order wound culture at IV site. Nasal MRSA ordered. Patient is still febrile . Ordered CT abdomen pelvis to evaluate progression of interstitial pancreatitis to rule out necrotic or hemorrhagic. Ordered Zosyn and blood cultures Review of Systems Review of Systems: 12 systems were reviewed and are negative except for as per HPI. Exam Narrative: General: Nontoxic-appearing male in the semi-Floers position in bed in moderate distress due to pain. Weight: 80.3 kg. BMI: 24.7. HEENT: PERRL, EOMI. Sclera anicteric. Tacky mucous membranes. Neck: Supple. Respiratory: Lungs are clear to auscultation bilaterally. Cardiovascular: Regular rate and rhythm with S1-S2. Gastrointestinal: Abdomen is soft and nondistended with hypoactive bowel sounds.He is tender to palpation throughout the upper abdomen. No guarding or rebound tenderness. Skin: Warm and dry. No rash or lesions on limited exam. Extremities: No cyanosis, clubbing, or edema. Radial and pedal pulses intact. Neurological: Alert. Cranial nerves 2-12 are grossly intact. No tremors. No gross focal deficits to casual conversation. Psychiatric: Cooperative with appropriate mood and affect. Objective Data Vital Signs Vital Signs: Vital Signs - 24 hr 11/18/24 08:56 11/18/24 08:56 11/18/24 14:00 Temperature 101.1 F H Pulse Rate 99 106 H Pulse Rate [Monitor] Respiratory Rate 18 Blood Pressure 155/97 H Pulse Oximetry 98 Oxygen Delivery Room Air 11/18/24 15:36 11/18/24 19:46 11/18/24 21:14 Temperature 97.7 F Pulse Rate 98 Pulse Rate [Monitor] 109 H Respiratory Rate 18 Blood Pressure 148/80 H Pulse Oximetry 97 Oxygen Delivery Room Air 11/18/24 23:27 11/18/24 23:33 11/19/24 00:13 Temperature 102.1 F H 102.0 F H 98.2 F Pulse Rate 100 Pulse Rate [Monitor] Respiratory Rate 18 Blood Pressure 141/80 H Pulse Oximetry 96 Oxygen Delivery 11/19/24 00:30 11/19/24 04:00 Temperature 100.2 F H 100.6 F H Pulse Rate 97 Pulse Rate [Monitor] Respiratory Rate 18 Blood Pressure 133/84 Pulse Oximetry 98 Oxygen Delivery Intake/Output Intake/Output: Intake & Output 11/16/24 11/17/24 11/18/24 11/19/24 23:59 23:59 23:59 23:59 Intake Total 5911.7 2572 1650 1450 Output Total 3800 Balance 2111.7 2572 1650 1450 Meds/Results Medications: Active Medications Generic Name Dose Route Start Last Admin Trade Name Freq PRN Reason Stop Dose Admin Acetaminophen 650 mg 11/18/24 23:10 11/18/24 23:33 Acetaminophen 325 Mg Tablet PO 650 mg Q6H PRN Administration Mild Pain (1-3) or Fever Chlordiazepoxide HCl 25 mg 11/15/24 19:54 11/18/24 08:58 Chlordiazepoxide (*Crx) 25 Mg Capsule PO 25 mg Q4H PRN Administration CIWA 8-15 Chlordiazepoxide HCl 50 mg 11/15/24 19:54 11/15/24 20:25 Chlordiazepoxide (*Crx) 25 Mg Capsule PO 50 mg Q4H PRN Administration CIWA 16 or greater Folic Acid 1 mg 11/16/24 09:00 11/18/24 09:01 Folic Acid 1 Mg/0.2 Ml Inj IV PUSH 1 mg QAM CECY Administration Hydralazine HCl 10 mg 11/17/24 16:40 Hydralazine Hcl 20 Mg/Ml Vial IV PUSH Q8H PRN Blood Pressure - High Hydromorphone HCl 0.5 mg 11/16/24 07:00 11/19/24 06:34 Hydromorphone Hcl Inj (*Crx) 2 Mg/Ml Vial IV PUSH 0.5 mg Q3H PRN Administration Pain Rated 5 OR LESS Lactated Ringer's 1,000 mls @ 100 mls/hr 11/14/24 22:35 11/19/24 06:01 Lr - Lactated Ringers Iv IV CONT 100 mls/hr .Q10H CECY Administration Piperacillin/Tazobactam/Dextrose 3.375 gm in 50 mls @ 100 mls/hr 11/18/24 18:00 11/19/24 05:58 Zosyn 3.375 Gm/Ns 50 Ml IVPB 100 mls/hr Q6HR CECY Administration Nicotine 1 patch 11/16/24 09:00 11/18/24 09:01 Nicotine (*Pbkc) 21 Mg Patch TRANSDERM 1 patch DAILY CECY Administration Ondansetron HCl 4 mg 11/14/24 22:41 11/17/24 02:50 Ondansetron Inj 4 Mg/2 Ml Vial IV PUSH 4 mg Q6H PRN Administration Nausea And Vomiting Pantoprazole Sodium 40 mg 11/15/24 09:00 11/18/24 21:10 Pantoprazole Sodium Iv 40 Mg Vial IV PUSH 40 mg Q12HR CECY Administration Tramadol HCl 50 mg 11/15/24 17:01 11/16/24 06:34 Tramadol Hcl (*Crx) 50 Mg Tablet PO 50 mg Q4H PRN Administration PAIN RATED 5 OR LESS Radiology Results: ITS Impressions Abdomen Ultrasound 11/17/24 11:46 IMPRESSION: Fat infiltration. Otherwise, normal limited abdominal ultrasound. MRCP 11/17/24 13:12 IMPRESSION: 1. Radiographic uncomplicated acute interstitial pancreatitis. 2. No cholelithiasis/choledocholithiasis or intra or extra hepatic biliary ductal dilation. 3. Diffuse hepatic steatosis. Abdomen/Pelvis CT 11/18/24 16:11 IMPRESSION: Without intravenous contrast, unable to evaluate for the progression of interstitial pancreatitis to necrotic or hemorrhagic pancreatitis. Bladder distention. Hepatomegaly Labs Labs: Laboratory Results - last 24 hr 11/18/24 05:50 BUN < 2 L Quality VTE Prophylaxis VTE prophylaxis: pharmacologic ordered Hospitalist [facility] Advance Care Plan I have confirmed that the patient's Advanced Care Plan is present, code status is documented, or surrogate decision maker is listed in patient medical record.: Yes Medication Reconciliation I have utilized all available resources to obtain, update and review the patients current medications (includes all prescriptions, OTC, herbals, cannabis, and nutritional supplements).: Yes
[2024-11-19] MEDS: FOLIC ACID 1 MG/0.2 ML INJ IV PUSH (08:49)
[2024-11-19] MEDS: NICOTINE (*PBKC) 21 MG PATCH 1 PATCH TRANSDERM (08:49)
[2024-11-19] MEDS: PANTOPRAZOLE SODIUM IV 40 MG VIAL IV PUSH ×2 (08:49→20:54)
[2024-11-19] MEDS: traMADol HCL (*CRX) 50 MG TABLET PO ×2 (09:41→17:41)
[2024-11-19 12:29] LABS: MRSA (PCR) NOT DETECTED (NOT DETECTE)
--- NOTE | 2024-11-19 15:32 | WPDGIPROGNO ---
Progress Note: A&P Assessment and Plan (1) Acute on chronic pancreatitis: Code(s): K85.90 - Acute pancreatitis without necrosis or infection, unspecified; K86.1 - Other chronic pancreatitis Status: Acute Assessment and Plan: repeat CT scan showed improvement of pancreatitis wonder if fever is from cellulitis, also noted + blood cultures on abx now (2) Alcoholic hepatitis: Code(s): K70.10 - Alcoholic hepatitis without ascites Status: Acute Assessment and Plan: with elevated lft's monitor (3) Generalized abdominal pain: Code(s): R10.84 - Generalized abdominal pain Status: Acute Assessment and Plan: this has improved discharge cancelled because fever (4) Alcohol dependence: Qualifiers: Substance use status: unspecified alcohol-induced disorder Qualified Code(s): F10.29 - Alcohol dependence with unspecified alcohol-induced disorder Code(s): F10.20 - Alcohol dependence, uncomplicated Status: Acute Assessment and Plan: [facility] protocol thiamine (5) Elevated transaminase level: Code(s): R74.01 - Elevation of levels of liver transaminase levels Status: Acute Assessment and Plan: from pancreatitis and alcoholic hepatitis (6) Cellulitis: Code(s): L03.90 - Cellulitis, unspecified Status: Acute Assessment and Plan: sirs/early sepsis, probably from cellulitis on abx (7) Bacteremia: Code(s): R78.81 - Bacteremia Status: Acute Subjective Date/time seen: 11/19/24 15:32 Interval history: noted cellulitis in rt arm, still had fever yesterday and + blood culture abdominal pain has improved and eating more, repeat CT scan actually showed that pancreatitis is improving Review of Systems Review of Systems: All systems reviewed & are unremarkable except as noted in HPI and below Exam Const: General: comfortable and no acute distress HENMT: Face/Nose/Sinus: Normal nares present Eyes: General: appearance normal, both eyes and all related structures Neck: Neck: supple Resp: Auscultation: clear to auscultation bilaterally Cardio: Rate: regular rate Rhythm: regular rhythm GI: Inspection: non-distended GI Palp: Yes Soft to palpation Auscultation: normal bowel sounds Other: minimal ttp, no rebound, better Skin: Other: redness in Rt forearm ? cellulitis Neuro: Speech: normal speech Motor exam (neuro): 5/5 motor strength present throughout Extrem: General: normal to inspection Psych: Affect: Anxious affect present Objective Data Vital Signs Vital Signs: Vital Signs - 24 hr 11/18/24 15:36 11/18/24 19:46 11/18/24 21:14 Temperature 97.7 F Pulse Rate 98 Pulse Rate [Monitor] 109 H Respiratory Rate 18 Blood Pressure 148/80 H Pulse Oximetry 97 Oxygen Delivery Room Air 11/18/24 23:27 11/18/24 23:33 11/19/24 00:13 Temperature 102.1 F H 102.0 F H 98.2 F Pulse Rate 100 Pulse Rate [Monitor] Respiratory Rate 18 Blood Pressure 141/80 H Pulse Oximetry 96 Oxygen Delivery 11/19/24 00:30 11/19/24 04:00 11/19/24 08:00 Temperature 100.2 F H 100.6 F H 99.5 F Pulse Rate 97 92 Pulse Rate [Monitor] Respiratory Rate 18 18 Blood Pressure 133/84 139/85 Pulse Oximetry 98 97 Oxygen Delivery 11/19/24 08:58 11/19/24 08:58 11/19/24 12:00 Temperature 98.3 F Pulse Rate 87 Pulse Rate [Monitor] 100 Respiratory Rate 18 Blood Pressure 135/94 H Pulse Oximetry 98 Oxygen Delivery Room Air Intake/Output Intake/Output: Intake & Output 11/16/24 11/17/24 11/18/24 11/19/24 23:59 23:59 23:59 23:59 Intake Total 5911.7 2572 1650 1740 Output Total 3800 Balance 2111.7 2572 1650 1740 Meds/Results Medications: Active Medications Generic Name Dose Route Start Last Admin Trade Name Freq PRN Reason Stop Dose Admin Acetaminophen 650 mg 11/18/24 23:10 11/18/24 23:33 Acetaminophen 325 Mg Tablet PO 650 mg Q6H PRN Administration Mild Pain (1-3) or Fever Chlordiazepoxide HCl 25 mg 11/15/24 19:54 11/18/24 08:58 Chlordiazepoxide (*Crx) 25 Mg Capsule PO 25 mg Q4H PRN Administration CIWA 8-15 Chlordiazepoxide HCl 50 mg 11/15/24 19:54 11/15/24 20:25 Chlordiazepoxide (*Crx) 25 Mg Capsule PO 50 mg Q4H PRN Administration CIWA 16 or greater Folic Acid 1 mg 11/16/24 09:00 11/19/24 08:49 Folic Acid 1 Mg/0.2 Ml Inj IV PUSH 1 mg QAM CECY Administration Hydralazine HCl 10 mg 11/17/24 16:40 Hydralazine Hcl 20 Mg/Ml Vial IV PUSH Q8H PRN Blood Pressure - High Hydromorphone HCl 0.5 mg 11/16/24 07:00 11/19/24 12:45 Hydromorphone Hcl Inj (*Crx) 2 Mg/Ml Vial IV PUSH 0.5 mg Q3H PRN Administration Pain Rated 5 OR LESS Lactated Ringer's 1,000 mls @ 100 mls/hr 11/14/24 22:35 11/19/24 13:46 Lr - Lactated Ringers Iv IV CONT Not Given .Q10H CECY Piperacillin/Tazobactam/Dextrose 3.375 gm in 50 mls @ 100 mls/hr 11/18/24 18:00 11/19/24 12:44 Zosyn 3.375 Gm/Ns 50 Ml IVPB 100 mls/hr Q6HR CECY Administration Nicotine 1 patch 11/16/24 09:00 11/19/24 08:49 Nicotine (*Pbkc) 21 Mg Patch TRANSDERM 1 patch DAILY CECY Administration Ondansetron HCl 4 mg 11/14/24 22:41 11/17/24 02:50 Ondansetron Inj 4 Mg/2 Ml Vial IV PUSH 4 mg Q6H PRN Administration Nausea And Vomiting Pantoprazole Sodium 40 mg 11/15/24 09:00 11/19/24 08:49 Pantoprazole Sodium Iv 40 Mg Vial IV PUSH 40 mg Q12HR CECY Administration Tramadol HCl 50 mg 11/15/24 17:01 11/19/24 09:41 Tramadol Hcl (*Crx) 50 Mg Tablet PO 50 mg Q4H PRN Administration PAIN RATED 5 OR LESS Radiology Results: ITS Impressions Abdomen Ultrasound 11/17/24 11:46 IMPRESSION: Fat infiltration. Otherwise, normal limited abdominal ultrasound. MRCP 11/17/24 13:12 IMPRESSION: 1. Radiographic uncomplicated acute interstitial pancreatitis. 2. No cholelithiasis/choledocholithiasis or intra or extra hepatic biliary ductal dilation. 3. Diffuse hepatic steatosis. Abdomen/Pelvis CT 11/18/24 16:11 IMPRESSION: Without intravenous contrast, unable to evaluate for the progression of interstitial pancreatitis to necrotic or hemorrhagic pancreatitis. Bladder distention. Hepatomegaly Abdomen/Pelvis CTA 11/19/24 11:33 IMPRESSION: 1. Mild decrease in the peripancreatic inflammatory stranding consistent with improving acute interstitial pancreatitis. 2. Diffuse hepatic steatosis. 3. Nonspecific splenomegaly. Venous Doppler Study 11/19/24 12:41 IMPRESSION: 1. Patent right upper extremity veins. No evidence of venous thrombosis. Labs Labs: Laboratory Results - last 24 hr 11/19/24 11:06 Nasal MRSA (PCR) Not detected
[2024-11-19] MEDS: ONDANSETRON INJ 4 MG/2 ML VIAL IV PUSH (17:41)
[2024-11-19] MEDS: ACETAMINOPHEN 325 MG TABLET 650 MG PO (18:52)
[2024-11-20] MEDS: HYDROmorphone HCL INJ (*CRX) 2 MG/ML VIAL 0.5 MG IV PUSH ×7 (02:17→23:03)
[2024-11-20 04:00] VITALS: BP 132/87; PULSE 79; RESP 18; TEMP 37.1; O2SAT 97
[2024-11-20] MEDS: LACTATED RINGERS 1,000 ML 100 ML IV CONT ×2 (05:12→17:23)
[2024-11-20] MEDS: PIPERACILLN/TAZ 3.375GM/NS50ML 3.375 GM/50 ML BAG IVPB ×4 (05:12→23:46)
[2024-11-20 06:48] LABS: Hematocrit 40.6 % (42.0-52.0); Hemoglobin 13.4 g/dL (14.0-18.0); Immature Platelet Fraction Pct 10.5 % (0.9-11.2); Mean Corpuscular Hemoglobin 31.8 pg (26-34); Mean Corpuscular Volume 96.2 fl (80-100); Mean Platelet Volume 11.9 fl (7.4-10.4); Platelet Count Result 126 k/mm3 (150-375); Red Blood Count 4.22 M/mm3 (4.6-6.20); Red Cell Distribution Width 14.8 % (11.5-14.5); White Blood Count 6.3 K/mm3 (4.5-10.0)
[2024-11-20 07:06] LABS: Alanine Aminotransferase 242 U/L (6-50); Albumin Level 3.5 g/dL (3.5-5.1); Alkaline Phosphatase 113 U/L (38-126); Anion Gap 10 mmol/L (4-12); Aspartate Amino Transferase 181 U/L (17-59); Bilirubin,Total 1.5 mg/dL (0.2-1.3); Blood Urea Nitrogen 2 mg/dL (9-20); Calcium 8.4 mg/dL (8.4-10.2); Carbon Dioxide 26 mmol/L (22-30); Chloride 99 mmol/L (98-107); Estimated CRCL calculation 163 ml/min; Estimated Glomerular Filt Rate > 60; Glucose 106 mg/dL (65-110); Potassium 3.6 mmol/L (3.4-5.0); Sodium 135 mmol/L (137-145); Total Protein 6.6 g/dL (6.3-8.2)
[2024-11-20 08:00] VITALS: BP 128/81; PULSE 100; PULSE 78; RESP 18; TEMP 36; O2SAT 98
--- NOTE | 2024-11-20 08:49 | WPDGIPROGNO ---
Progress Note: A&P Assessment and Plan (1) Acute on chronic pancreatitis: Code(s): K85.90 - Acute pancreatitis without necrosis or infection, unspecified; K86.1 - Other chronic pancreatitis Status: Acute Assessment and Plan: repeat CT scan showed improvement of pancreatitis fever and bacteremia most likely from cellulitis on abx liver enzymes and bili improved tolerating diet will follow only as needed (2) Alcoholic hepatitis: Code(s): K70.10 - Alcoholic hepatitis without ascites Status: Acute Assessment and Plan: bili is coming down and repeat CT scan showed improvement pancreatitis monitor (3) Generalized abdominal pain: Code(s): R10.84 - Generalized abdominal pain Status: Acute Assessment and Plan: improving (4) Cellulitis: Code(s): L03.90 - Cellulitis, unspecified Status: Acute Assessment and Plan: sirs/early sepsis, probably from cellulitis on abx (5) Alcohol dependence: Qualifiers: Substance use status: unspecified alcohol-induced disorder Qualified Code(s): F10.29 - Alcohol dependence with unspecified alcohol-induced disorder Code(s): F10.20 - Alcohol dependence, uncomplicated Status: Acute Assessment and Plan: [facility] protocol thiamine (6) Elevated transaminase level: Code(s): R74.01 - Elevation of levels of liver transaminase levels Status: Acute Assessment and Plan: from pancreatitis and alcoholic hepatitis trending down (7) Bacteremia: Code(s): R78.81 - Bacteremia Status: Acute Subjective Date/time seen: 11/20/24 08:49 Interval history: no nausea, more appetite today abdominal pain has improved still redness with discomfort in Rt forearm afebrile for more 24 hours Review of Systems Review of Systems: All systems reviewed & are unremarkable except as noted in HPI and below Exam Const: General: comfortable and no acute distress HENMT: Face/Nose/Sinus: Normal nares present Eyes: General: appearance normal, both eyes and all related structures Neck: Neck: supple Resp: Auscultation: clear to auscultation bilaterally Cardio: Rate: regular rate Rhythm: regular rhythm GI: Inspection: non-distended GI Palp: Yes Soft to palpation Auscultation: normal bowel sounds Other: minimal ttp, no rebound, better Skin: Other: redness in Rt forearm c/w cellulitis Neuro: Speech: normal speech Motor exam (neuro): 5/5 motor strength present throughout Extrem: General: normal to inspection Psych: Affect: Anxious affect present Objective Data Vital Signs Vital Signs: Vital Signs - 24 hr 11/19/24 08:58 11/19/24 08:58 11/19/24 12:00 Temperature 98.3 F Pulse Rate 87 Pulse Rate [Monitor] 100 Respiratory Rate 18 Blood Pressure 135/94 H Pulse Oximetry 98 Oxygen Delivery Room Air 11/19/24 16:00 11/19/24 20:00 11/19/24 22:42 Temperature 99.3 F 98.8 F 98.1 F Pulse Rate 88 84 80 Pulse Rate [Monitor] Respiratory Rate 16 18 18 Blood Pressure 147/96 H 135/80 135/80 Pulse Oximetry 97 97 98 Oxygen Delivery 11/20/24 04:00 11/20/24 08:00 Temperature 98.7 F 96.8 F L Pulse Rate 79 78 Pulse Rate [Monitor] Respiratory Rate 18 18 Blood Pressure 132/87 128/81 Pulse Oximetry 97 98 Oxygen Delivery Intake/Output Intake/Output: Intake & Output 11/17/24 11/18/24 11/19/24 11/20/24 23:59 23:59 23:59 23:59 Intake Total 2572 1650 4090 2200 Balance 2572 1650 4090 2200 Meds/Results Medications: Active Medications Generic Name Dose Route Start Last Admin Trade Name Freq PRN Reason Stop Dose Admin Acetaminophen 650 mg 11/18/24 23:10 11/19/24 18:52 Acetaminophen 325 Mg Tablet PO 650 mg Q6H PRN Administration Mild Pain (1-3) or Fever Chlordiazepoxide HCl 25 mg 11/15/24 19:54 11/18/24 08:58 Chlordiazepoxide (*Crx) 25 Mg Capsule PO 25 mg Q4H PRN Administration CIWA 8-15 Chlordiazepoxide HCl 50 mg 11/15/24 19:54 11/15/24 20:25 Chlordiazepoxide (*Crx) 25 Mg Capsule PO 50 mg Q4H PRN Administration CIWA 16 or greater Folic Acid 1 mg 11/16/24 09:00 11/19/24 08:49 Folic Acid 1 Mg/0.2 Ml Inj IV PUSH 1 mg QAM CECY Administration Hydralazine HCl 10 mg 11/17/24 16:40 Hydralazine Hcl 20 Mg/Ml Vial IV PUSH Q8H PRN Blood Pressure - High Hydromorphone HCl 0.5 mg 11/16/24 07:00 11/20/24 05:15 Hydromorphone Hcl Inj (*Crx) 2 Mg/Ml Vial IV PUSH 0.5 mg Q3H PRN Administration Pain Rated 5 OR LESS Lactated Ringer's 1,000 mls @ 100 mls/hr 11/14/24 22:35 11/20/24 05:12 Lr - Lactated Ringers Iv IV CONT 100 mls/hr .Q10H CECY Administration Piperacillin/Tazobactam/Dextrose 3.375 gm in 50 mls @ 100 mls/hr 11/18/24 18:00 11/20/24 05:12 Zosyn 3.375 Gm/Ns 50 Ml IVPB 100 mls/hr Q6HR CECY Administration Nicotine 1 patch 11/16/24 09:00 11/19/24 08:49 Nicotine (*Pbkc) 21 Mg Patch TRANSDERM 1 patch DAILY CECY Administration Ondansetron HCl 4 mg 11/14/24 22:41 11/19/24 17:41 Ondansetron Inj 4 Mg/2 Ml Vial IV PUSH 4 mg Q6H PRN Administration Nausea And Vomiting Pantoprazole Sodium 40 mg 11/15/24 09:00 11/19/24 20:54 Pantoprazole Sodium Iv 40 Mg Vial IV PUSH 40 mg Q12HR CECY Administration Tramadol HCl 50 mg 11/15/24 17:01 11/19/24 17:41 Tramadol Hcl (*Crx) 50 Mg Tablet PO 50 mg Q4H PRN Administration PAIN RATED 5 OR LESS Radiology Results: ITS Impressions Abdomen Ultrasound 11/17/24 11:46 IMPRESSION: Fat infiltration. Otherwise, normal limited abdominal ultrasound. MRCP 11/17/24 13:12 IMPRESSION: 1. Radiographic uncomplicated acute interstitial pancreatitis. 2. No cholelithiasis/choledocholithiasis or intra or extra hepatic biliary ductal dilation. 3. Diffuse hepatic steatosis. Abdomen/Pelvis CT 11/18/24 16:11 IMPRESSION: Without intravenous contrast, unable to evaluate for the progression of interstitial pancreatitis to necrotic or hemorrhagic pancreatitis. Bladder distention. Hepatomegaly Abdomen/Pelvis CTA 11/19/24 11:33 IMPRESSION: 1. Mild decrease in the peripancreatic inflammatory stranding consistent with improving acute interstitial pancreatitis. 2. Diffuse hepatic steatosis. 3. Nonspecific splenomegaly. Venous Doppler Study 11/19/24 12:41 IMPRESSION: 1. Patent right upper extremity veins. No evidence of venous thrombosis. Labs Labs: Laboratory Results - last 24 hr 11/19/24 11/20/24 11:06 06:03 WBC 6.3 RBC 4.22 L Hgb 13.4 L Hct 40.6 L MCV 96.2 MCH 31.8 MCHC 33.0 RDW 14.8 H Plt Count 126 L MPV 11.9 H % Immature Plt Fraction 10.5 Sodium 135 L Potassium 3.6 Chloride 99 Carbon Dioxide 26 Anion Gap 10 BUN 2 L Creatinine 0.61 L Estim Creat Clear Calc 163 Estimated GFR > 60 Glucose 106 Calcium 8.4 Total Bilirubin 1.5 H AST 181 H ALT 242 H Alkaline Phosphatase 113 Total Protein 6.6 Albumin 3.5 Nasal MRSA (PCR) Not detected
[2024-11-20] MEDS: FOLIC ACID 1 MG/0.2 ML INJ IV PUSH (09:16)
[2024-11-20] MEDS: PANTOPRAZOLE SODIUM IV 40 MG VIAL IV PUSH ×2 (09:17→20:57)
[2024-11-20] MEDS: NICOTINE (*PBKC) 21 MG PATCH 1 PATCH TRANSDERM (09:17)
[2024-11-20] MEDS: VANCOMYCIN 2,000 MG/NS 500 ML 2,000 MG/500 ML BAG 250 MG IVPB (11:35)
[2024-11-20 12:00] VITALS: BP 128/81; PULSE 100
--- NOTE | 2024-11-20 15:22 | P.PNIM_ITS ---
Progress Note: A&P Assessment and Plan (1) Acute pancreatitis: Code(s): K85.90 - Acute pancreatitis without necrosis or infection, unspecified Status: Acute Assessment and Plan: CT abdomen/pelvis to rule out any necrosis or hemorrhagic pancreatitis Started on Zosyn Pending blood culture Started IV fluids Possibly due to alcoholism Elevated lipase Monitor hematocrit and creatinine for hemoconcentration Started on IV hydration LR Strict input and output monitoring Monitor electrolytes Pain control and antiemetics as needed Right upper quadrant ultrasound GI consulted and appreciate recommendations If no significant can not improvement in 72 hours will get repeat CT with contrast CT abdomen :shows Acute interstitial edematous pancreatitis, as detailed above. Necrosis absent. No well-circumscribed peripancreatic fluid collections. No additional findings suggesting acute hemorrhage (2) Alcohol abuse: Code(s): F10.10 - Alcohol abuse, uncomplicated Status: Acute Assessment and Plan: IV thiamine and folic acid Monitor CIWA Scheduled Librium AST 198, ALT 276, ALP 109 Elevated LFT Possibly due to alcoholic hepatitis (3) Alcoholic hepatitis: Code(s): K70.10 - Alcoholic hepatitis without ascites Status: Acute Assessment and Plan: As above (4) Elevated blood pressure reading: Code(s): R03.0 - Elevated blood-pressure reading, without diagnosis of hypertension Status: Acute Assessment and Plan: Possibly due to pain (5) Bacteremia: Code(s): R78.81 - Bacteremia Status: Acute Assessment and Plan: Unclear source Blood culture from 11/18/2024 shows a Gram-positive cocci in clusters Will do MT Monitor leukocytosis Started vancomycin Febrile Monitor vital Subjective Date/time seen: 11/20/24 15:22 Interval history: Patient blood culture shows Gram-positive cocci in in clusters. Started vancomycin. If MRSA will order MT Review of Systems Review of Systems: 12 systems were reviewed and are negativ e except for as per HPI. Exam Narrative: General: Nontoxic-appearing male in the semi-Flores position in bed in moderate distress due to pain. Weight: 80.3 kg. BMI: 24.7. HEENT: PERRL, EOMI. Sclera anicteric. Tacky mucous membranes. Neck: Supple. Respiratory: Lungs are clear to auscultation bilaterally. Cardiovascular: Regular rate and rhythm with S1-S2. Gastrointestinal: Abdomen is soft and nondistended with hypoactive bowel sounds.He is tender to palpation throughout the upper abdomen. No guarding or rebound tenderness. Skin: Warm and dry. No rash or lesions on limited exam. Extremities: No cyanosis, clubbing, or edema. Radial and pedal pulses intact. Neurological: Alert. Cranial nerves 2-12 are grossly intact. No tremors. No gross focal deficits to casual conversation. Psychiatric: Cooperative with appropriate mood and affect. Objective Data Vital Signs Vital Signs: Vital Signs - 24 hr 11/19/24 16:00 11/19/24 20:00 11/19/24 22:42 Temperature 99.3 F 98.8 F 98.1 F Pulse Rate 88 84 80 Pulse Rate [Monitor] Respiratory Rate 16 18 18 Blood Pressure 147/96 H 135/80 135/80 Pulse Oximetry 97 97 98 Oxygen Delivery 11/20/24 04:00 11/20/24 08:00 11/20/24 08:00 Temperature 98.7 F 96.8 F L Pulse Rate 79 78 Pulse Rate [Monitor] 100 Respiratory Rate 18 18 Blood Pressure 132/87 128/81 128/81 Pulse Oximetry 97 98 Oxygen Delivery 11/20/24 08:00 11/20/24 12:00 Temperature Pulse Rate Pulse Rate [Monitor] 100 Respiratory Rate Blood Pressure 128/81 Pulse Oximetry Oxygen Delivery Room Air Intake/Output Intake/Output: Intake & Output 11/17/24 11/18/24 11/19/24 11/20/24 23:59 23:59 23:59 23:59 Intake Total 2572 1650 4090 2931 Balance 2572 1650 4090 2931 Meds/Results Medications: Active Medications Generic Name Dose Route Start Last Admin Trade Name Freq PRN Reason Stop Dose Admin Acetaminophen 650 mg 11/18/24 23:10 11/19/24 18:52 Acetaminophen 325 Mg Tablet PO 650 mg Q6H PRN Administration Mild Pain (1-3) or Fever Chlordiazepoxide HCl 25 mg 11/15/24 19:54 11/18/24 08:58 Chlordiazepoxide (*Crx) 25 Mg Capsule PO 25 mg Q4H PRN Administration CIWA 8-15 Chlordiazepoxide HCl 50 mg 11/15/24 19:54 11/15/24 20:25 Chlordiazepoxide (*Crx) 25 Mg Capsule PO 50 mg Q4H PRN Administration CIWA 16 or greater Folic Acid 1 mg 11/16/24 09:00 11/20/24 09:16 Folic Acid 1 Mg/0.2 Ml Inj IV PUSH 1 mg QAM CECY Administration Hydralazine HCl 10 mg 11/17/24 16:40 Hydralazine Hcl 20 Mg/Ml Vial IV PUSH Q8H PRN Blood Pressure - High Hydromorphone HCl 0.5 mg 11/16/24 07:00 11/20/24 12:47 Hydromorphone Hcl Inj (*Crx) 2 Mg/Ml Vial IV PUSH 0.5 mg Q3H PRN Administration Pain Rated 5 OR LESS Lactated Ringer's 1,000 mls @ 100 mls/hr 11/14/24 22:35 11/20/24 05:12 Lr - Lactated Ringers Iv IV CONT 100 mls/hr .Q10H CECY Administration Piperacillin/Tazobactam/Dextrose 3.375 gm in 50 mls @ 100 mls/hr 11/18/24 18:00 11/20/24 11:35 Zosyn 3.375 Gm/Ns 50 Ml IVPB 100 mls/hr Q6HR CECY Administration Vancomycin HCl 1,500 mg in 500 mls @ 250 mls/hr 11/20/24 22:00 Vancomycin 1,500 Mg/Ns 500 Ml IVPB Q12H CECY Nicotine 1 patch 11/16/24 09:00 11/20/24 09:17 Nicotine (*Pbkc) 21 Mg Patch TRANSDERM 1 patch DAILY CECY Administration Ondansetron HCl 4 mg 11/14/24 22:41 11/19/24 17:41 Ondansetron Inj 4 Mg/2 Ml Vial IV PUSH 4 mg Q6H PRN Administration Nausea And Vomiting Pantoprazole Sodium 40 mg 11/15/24 09:00 11/20/24 09:17 Pantoprazole Sodium Iv 40 Mg Vial IV PUSH 40 mg Q12HR CECY Administration Tramadol HCl 50 mg 11/15/24 17:01 11/19/24 17:41 Tramadol Hcl (*Crx) 50 Mg Tablet PO 50 mg Q4H PRN Administration PAIN RATED 5 OR LESS Radiology Results: ITS Impressions Abdomen Ultrasound 11/17/24 11:46 IMPRESSION: Fat infiltration. Otherwise, normal limited abdominal ultrasound. MRCP 11/17/24 13:12 IMPRESSION: 1. Radiographic uncomplicated acute interstitial pancreatitis. 2. No cholelithiasis/choledocholithiasis or intra or extra hepatic biliary ductal dilation. 3. Diffuse hepatic steatosis. Abdomen/Pelvis CT 11/18/24 16:11 IMPRESSION: Without intravenous contrast, unable to evaluate for the progression of interstitial pancreatitis to necrotic or hemorrhagic pancreatitis. Bladder distention. Hepatomegaly Abdomen/Pelvis CTA 11/19/24 11:33 IMPRESSION: 1. Mild decrease in the peripancreatic inflammatory stranding consistent with improving acute interstitial pancreatitis. 2. Diffuse hepatic steatosis. 3. Nonspecific splenomegaly. Venous Doppler Study 11/19/24 12:41 IMPRESSION: 1. Patent right upper extremity veins. No evidence of venous thrombosis. Labs Labs: Laboratory Results - last 24 hr 11/20/24 06:03 WBC 6.3 RBC 4.22 L Hgb 13.4 L Hct 40.6 L MCV 96.2 MCH 31.8 MCHC 33.0 RDW 14.8 H Plt Count 126 L MPV 11.9 H % Immature Plt Fraction 10.5 Sodium 135 L Potassium 3.6 Chloride 99 Carbon Dioxide 26 Anion Gap 10 BUN 2 L Creatinine 0.61 L Estim Creat Clear Calc 163 Estimated GFR > 60 Glucose 106 Calcium 8.4 Total Bilirubin 1.5 H AST 181 H ALT 242 H Alkaline Phosphatase 113 Total Protein 6.6 Albumin 3.5 Quality VTE Prophylaxis VTE prophylaxis: pharmacologic ordered Hospitalist MIPS Advance Care Plan I have confirmed that the patient's Advanced Care Plan is present, code status is documented, or surrogate decision maker is listed in patient medical record.: Yes Medication Reconciliation I have utilized all available resources to obtain, update and review the patien ts current medications (includes all prescriptions, OTC, herbals, cannabis, and nutritional supplements).: Yes
[2024-11-20] MEDS: ONDANSETRON INJ 4 MG/2 ML VIAL IV PUSH (15:49)
[2024-11-20 16:00] VITALS: BP 135/86; PULSE 100; PULSE 79; RESP 18; TEMP 36.2; O2SAT 98
[2024-11-20 20:00] VITALS: BP 133/83; PULSE 83; RESP 16; TEMP 36.6; O2SAT 98
[2024-11-20] MEDS: VANCOMYCIN 1,500 MG/NS 500 ML 1,500 MG/500 ML BAG 250 MG IVPB (21:02)
[2024-11-20] MEDS: ACETAMINOPHEN 325 MG TABLET 650 MG PO (21:05)
[2024-11-21] VITALS (7 sets, daily range): BP systolic 115–141; BP diastolic 67–81; PULSE 73–88; RESP 18–24; TEMP 35.9–36.3; O2SAT 96–99
[2024-11-21] MEDS: LACTATED RINGERS 1,000 ML 100 ML IV CONT ×2 (03:30→09:17)
[2024-11-21] MEDS: PIPERACILLN/TAZ 3.375GM/NS50ML 3.375 GM/50 ML BAG IVPB (05:26)
[2024-11-21] MEDS: HYDROmorphone HCL INJ (*CRX) 2 MG/ML VIAL 0.5 MG IV PUSH ×5 (05:29→20:54)
[2024-11-21 06:23] LABS: Hematocrit 40.4 % (42.0-52.0); Hemoglobin 13.4 g/dL (14.0-18.0); Mean Corpuscular HGB Conc 33.2 g/dl (32-36); Mean Corpuscular Hemoglobin 31.5 pg (26-34); Mean Corpuscular Volume 94.8 fl (80-100); Mean Platelet Volume 11.8 fl (7.4-10.4); Platelet Count Result 189 k/mm3 (150-375); Red Blood Count 4.26 M/mm3 (4.6-6.20); Red Cell Distribution Width 14.7 % (11.5-14.5); White Blood Count 8.1 K/mm3 (4.5-10.0)
[2024-11-21 06:35] LABS: Alanine Aminotransferase 180 U/L (6-50); Albumin Level 3.6 g/dL (3.5-5.1); Alkaline Phosphatase 103 U/L (38-126); Anion Gap 8 mmol/L (4-12); Aspartate Amino Transferase 75 U/L (17-59); Bilirubin,Total 1.1 mg/dL (0.2-1.3); Blood Urea Nitrogen 3 mg/dL (9-20); Calcium 8.7 mg/dL (8.4-10.2); Carbon Dioxide 27 mmol/L (22-30); Chloride 102 mmol/L (98-107); Estimated CRCL calculation 174 ml/min; Estimated Glomerular Filt Rate > 60; Glucose 146 mg/dL (65-110); Potassium 3.4 mmol/L (3.4-5.0); Sodium 137 mmol/L (137-145); Total Protein 6.8 g/dL (6.3-8.2)
[2024-11-21] MEDS: ONDANSETRON INJ 4 MG/2 ML VIAL IV PUSH (09:16)
[2024-11-21] MEDS: FOLIC ACID 1 MG/0.2 ML INJ IV PUSH (09:17)
[2024-11-21] MEDS: NICOTINE (*PBKC) 21 MG PATCH 1 PATCH TRANSDERM (09:18)
[2024-11-21] MEDS: PANTOPRAZOLE SODIUM IV 40 MG VIAL IV PUSH ×2 (09:18→20:54)
[2024-11-21] MEDS: VANCOMYCIN 1,500 MG/NS 500 ML 1,500 MG/500 ML BAG 250 MG IVPB (09:30)
--- NOTE | 2024-11-21 09:57 | PCNWS ---
Weekly nutritional screen. Patient is tolerating current diet, Low fat. Intakes improved to 80-90%. No weight loss reported. No nutritional needs at this time.
--- NOTE | 2024-11-21 13:14 | P.PNIM_ITS ---
Progress Note: A&P Assessment and Plan (1) Acute pancreatitis: Code(s): K85.90 - Acute pancreatitis without necrosis or infection, unspecified Status: Acute Assessment and Plan: CT abdomen/pelvis to rule out any necrosis or hemorrhagic pancreatitis Started on Zosyn Pending blood culture Started IV fluids Possibly due to alcoholism Elevated lipase Monitor hematocrit and creatinine for hemoconcentration Started on IV hydration LR Strict input and output monitoring Monitor electrolytes Pain control and antiemetics as needed Right upper quadrant ultrasound GI consulted and appreciate recommendations If no significant can not improvement in 72 hours will get repeat CT with contrast CT abdomen :shows Acute interstitial edematous pancreatitis, as detailed above. Necrosis absent. No well-circumscribed peripancreatic fluid collections. No additional findings suggesting acute hemorrhage (2) Alcohol abuse: Code(s): F10.10 - Alcohol abuse, uncomplicated Status: Acute Assessment and Plan: IV thiamine and folic acid Monitor CIWA Scheduled Librium AST 198, ALT 276, ALP 109 Elevated LFT Possibly due to alcoholic hepatitis (3) Alcoholic hepatitis: Code(s): K70.10 - Alcoholic hepatitis without ascites Status: Acute Assessment and Plan: As above (4) Elevated blood pressure reading: Code(s): R03.0 - Elevated blood-pressure reading, without diagnosis of hypertension Status: Acute Assessment and Plan: Possibly due to pain (5) Bacteremia: Code(s): R78.81 - Bacteremia Status: Acute Assessment and Plan: Unclear source Blood culture from 11/18/2024 shows metal sensitive Staph aureus Will do MT Monitor leukocytosis Discontinue vancomycin Started on cephalexin 1 g q.6 hours for 4 weeks Unable to continue IV antibiotics due to social issues Repeat blood culture on 11/23 Febrile Monitor vital Subjective Date/time seen: 11/21/24 13:14 Interval history: Patient blood culture is positive for methicillin sensitive Staph aureus. Consult Cardiology for MT. Patient will be started on cephalexin 1 g q.6 hours. Previously patient was about to start on Ancef but due to social issues will be started on cephalexin. Review of Systems Review of Systems: 12 systems were reviewed and are negativ e except for as per HPI. Exam Narrative: General: Nontoxic-appearing male in the semi-Flores position in bed in moderate distress due to pain. Weight: 80.3 kg. BMI: 24.7. HEENT: PERRL, EOMI. Sclera anicteric. Tacky mucous membranes. Neck: Supple. Respiratory: Lungs are clear to auscultation bilaterally. Cardiovascular: Regular rate and rhythm with S1-S2. Gastrointestinal: Abdomen is soft and nondistended with hypoactive bowel sounds.He is tender to palpation throughout the upper abdomen. No guarding or rebound tenderness. Skin: Warm and dry. No rash or lesions on limited exam. Extremities: No cyanosis, clubbing, or edema. Radial and pedal pulses intact. Neurological: Alert. Cranial nerves 2-12 are grossly intact. No tremors. No gross focal deficits to casual conversation. Psychiatric: Cooperative with appropriate mood and affect. Objective Data Vital Signs Vital Signs: Vital Signs - 24 hr 11/20/24 16:00 11/20/24 16:00 11/20/24 20:00 Temperature 97.2 F L 97.8 F Pulse Rate 79 83 Pulse Rate [Monitor] 100 Respiratory Rate 18 16 Blood Pressure 135/86 135/86 133/83 Pulse Oximetry 98 98 Oxygen Delivery 11/20/24 20:00 11/21/24 00:00 11/21/24 04:00 Temperature 96.7 F L Pulse Rate 80 Pulse Rate [Monitor] Respiratory Rate 20 Blood Pressure 117/71 123/81 Pulse Oximetry 97 Oxygen Delivery Room Air 11/21/24 04:13 11/21/24 08:00 11/21/24 08:00 Temperature 97.1 F L 97.2 F L Pulse Rate 84 73 Pulse Rate [Monitor] Respiratory Rate 24 H 18 Blood Pressure 123/81 119/80 Pulse Oximetry 96 98 Oxygen Delivery Room Air 11/21/24 11:54 Temperature 97.0 F L Pulse Rate 84 Pulse Rate [Monitor] Respiratory Rate 18 Blood Pressure 122/81 Pulse Oximetry 97 Oxygen Delivery Intake/Output Intake/Output: Intake & Output 11/18/24 11/19/24 11/20/24 11/21/24 23:59 23:59 23:59 23:59 Intake Total 1650 4090 5731 2100.3 Balance 1650 4090 5731 2100.3 Meds/Results Medications: Active Medications Generic Name Dose Route Start Last Admin Trade Name Freq PRN Reason Stop Dose Admin Acetaminophen 650 mg 11/18/24 23:10 11/20/24 21:05 Acetaminophen 325 Mg Tablet PO 650 mg Q6H PRN Administration Mild Pain (1-3) or Fever Cephalexin HCl 1,000 mg 11/21/24 18:00 Cephalexin 500 Mg Capsule PO 12/21/24 18:01 Q6HR CECY Chlordiazepoxide HCl 25 mg 11/15/24 19:54 11/18/24 08:58 Chlordiazepoxide (*Crx) 25 Mg Capsule PO 25 mg Q4H PRN Administration CIWA 8-15 Chlordiazepoxide HCl 50 mg 11/15/24 19:54 11/15/24 20:25 Chlordiazepoxide (*Crx) 25 Mg Capsule PO 50 mg Q4H PRN Administration CIWA 16 or greater Folic Acid 1 mg 11/16/24 09:00 11/21/24 09:17 Folic Acid 1 Mg/0.2 Ml Inj IV PUSH 1 mg QAM CECY Administration Hydralazine HCl 10 mg 11/17/24 16:40 Hydralazine Hcl 20 Mg/Ml Vial IV PUSH Q8H PRN Blood Pressure - High Hydromorphone HCl 0.5 mg 11/16/24 07:00 11/21/24 13:07 Hydromorphone Hcl Inj (*Crx) 2 Mg/Ml Vial IV PUSH 0.5 mg Q3H PRN Administration Pain Rated 5 OR LESS Lactated Ringer's 1,000 mls @ 100 mls/hr 11/14/24 22:35 11/21/24 09:17 Lr - Lactated Ringers Iv IV CONT 100 mls/hr .Q10H CECY Administration Nicotine 1 patch 11/16/24 09:00 11/21/24 09:18 Nicotine (*Pbkc) 21 Mg Patch TRANSDERM 1 patch DAILY CECY Administration Ondansetron HCl 4 mg 11/14/24 22:41 11/21/24 09:16 Ondansetron Inj 4 Mg/2 Ml Vial IV PUSH 4 mg Q6H PRN Administration Nausea And Vomiting Pantoprazole Sodium 40 mg 11/15/24 09:00 11/21/24 09:18 Pantoprazole Sodium Iv 40 Mg Vial IV PUSH 40 mg Q12HR CECY Administration Tramadol HCl 50 mg 11/15/24 17:01 11/19/24 17:41 Tramadol Hcl (*Crx) 50 Mg Tablet PO 50 mg Q4H PRN Administration PAIN RATED 5 OR LESS Radiology Results: ITS Impressions Abdomen Ultrasound 11/17/24 11:46 IMPRESSION: Fat infiltration. Otherwise, normal limited abdominal ultrasound. MRCP 11/17/24 13:12 IMPRESSION: 1. Radiographic uncomplicated acute interstitial pancreatitis. 2. No cholelithiasis/choledocholithiasis or intra or extra hepatic biliary ductal dilation. 3. Diffuse hepatic steatosis. Abdomen/Pelvis CT 11/18/24 16:11 IMPRESSION: Without intravenous contrast, unable to evaluate for the progression of interstitial pancreatitis to necrotic or hemorrhagic pancreatitis. Bladder distention. Hepatomegaly Abdomen/Pelvis CTA 11/19/24 11:33 IMPRESSION: 1. Mild decrease in the peripancreatic inflammatory stranding consistent with improving acute interstitial pancreatitis. 2. Diffuse hepatic steatosis. 3. Nonspecific splenomegaly. Venous Doppler Study 11/19/24 12:41 IMPRESSION: 1. Patent right upper extremity veins. No evidence of venous thrombosis. Labs Labs: Laboratory Results - last 24 hr 11/21/24 05:28 WBC 8.1 RBC 4.26 L Hgb 13.4 L Hct 40.4 L MCV 94.8 MCH 31.5 MCHC 33.2 RDW 14.7 H Plt Count 189 MPV 11.8 H Sodium 137 Potassium 3.4 Chloride 102 Carbon Dioxide 27 Anion Gap 8 BUN 3 L Creatinine 0.57 L Estim Creat Clear Calc 174 Estimated GFR > 60 Glucose 146 H Calcium 8.7 Total Bilirubin 1.1 AST 75 H ALT 180 H Alkaline Phosphatase 103 Total Protein 6.8 Albumin 3.6 Quality VTE Prophylaxis VTE prophylaxis: pharmacologic ordered Hospitalist [facility] Advance Care Plan I have confirmed that the patient's Advanced Care Plan is present, code status is documented, or surrogate decision maker is listed in patient medical record.: Yes Medication Reconciliation I have utilized all available resources to obtain, update and review the patients current medications (includes all prescriptions, OTC, herbals, cannabis, and nutritional supplements).: Yes
[2024-11-21] MEDS: CEPHALEXIN 500 MG CAPSULE 1000 MG PO (17:19)
[2024-11-22] VITALS (9 sets, daily range): BP systolic 117–157; BP diastolic 74–103; PULSE 70–102; RESP 14–20; TEMP 35.6–36.2; O2SAT 95–100
[2024-11-22] MEDS: CEPHALEXIN 500 MG CAPSULE 1000 MG PO ×3 (01:15→12:23)
[2024-11-22] MEDS: HYDROmorphone HCL INJ (*CRX) 2 MG/ML VIAL 0.5 MG IV PUSH ×3 (01:15→09:40)
[2024-11-22] MEDS: LACTATED RINGERS 1,000 ML 100 ML IV CONT (01:17)
[2024-11-22 06:22] LABS: Hematocrit 39.5 % (42.0-52.0); Mean Corpuscular HGB Conc 32.9 g/dl (32-36); Mean Corpuscular Hemoglobin 31.2 pg (26-34); Mean Corpuscular Volume 94.7 fl (80-100); Mean Platelet Volume 11.2 fl (7.4-10.4); Platelet Count Result 251 k/mm3 (150-375); Red Blood Count 4.17 M/mm3 (4.6-6.20); Red Cell Distribution Width 14.6 % (11.5-14.5); White Blood Count 7.8 K/mm3 (4.5-10.0)
[2024-11-22 06:36] LABS: Alanine Aminotransferase 128 U/L (6-50); Albumin Level 3.6 g/dL (3.5-5.1); Alkaline Phosphatase 101 U/L (38-126); Anion Gap 7 mmol/L (4-12); Aspartate Amino Transferase 54 U/L (17-59); Calcium 8.7 mg/dL (8.4-10.2); Carbon Dioxide 27 mmol/L (22-30); Chloride 103 mmol/L (98-107); Estimated CRCL calculation 182 ml/min; Estimated Glomerular Filt Rate > 60; Glucose 136 mg/dL (65-110); Potassium 3.7 mmol/L (3.4-5.0); Sodium 137 mmol/L (137-145); Total Protein 6.9 g/dL (6.3-8.2)
[2024-11-22 08:04] LABS: Blood Urea Nitrogen < 2 mg/dL (9-20)
[2024-11-22] MEDS: PANTOPRAZOLE SODIUM IV 40 MG VIAL IV PUSH (09:40)
[2024-11-22] MEDS: ONDANSETRON INJ 4 MG/2 ML VIAL IV PUSH (09:40)
[2024-11-22] MEDS: NICOTINE (*PBKC) 21 MG PATCH 1 PATCH TRANSDERM (09:40)
[2024-11-22] MEDS: FOLIC ACID 1 MG/0.2 ML INJ IV PUSH (09:40)
--- NOTE | 2024-11-22 09:54 | P.CONCA_ITS ---
Assessment and Plan Assessment and plan (1) Bacteremia: Code(s): R78.81 - Bacteremia Status: Acute Plan MT discussed with the patient. Patient agreeable to proceed. Will plan for MT today. History of Present Illness History of Present Illness Consult date/time: 11/22/24 09:54 Requesting physician: Christos Arango MD Consult reason: Other (MT) Reason For Visit: Pancreatitis Narrative: We are consulted for MT for MSSA bacteremia. Alonso is a 29 year old male admitted for acute pancreatitis, alcoholic hepatitis. Found to have MSSA bacteremia, therefore, MT has been requested. No cardiac symptoms. Review of Systems 2 Cardiovascular: Cardiovascular: Reports as per 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 Code status: Full code. Years smoked: 5 Smoking status: Current every day smoker Tobacco type: e-cigarettes/vaping Alcohol intake: current Drinks per week: 84 Alcohol use details: A 5th of alcohol every 2 days. Substance use: current Substance use type: marijuana Other substance usage details: 08/2024 Last use: 11/13/24 Do You Feel Safe in your Home?: Yes Lack of Transportation: No Lack of Food: Never True Current Housing: I Have Housing Concerned About Future Housing: No Difficulty Paying Gas/Electric Bills: No Difficulty Paying for Meds: No Currently Unemployed: No Education: Grade School Difficulty w/ Childcare or Family Care: No Spiritual care concerns: No Meds Home Medications and Allergies Home Medications ?Medication ?Instructions ?Recorded ?Confirmed ?Type No Home Medications 10/15/24 11/14/24 History Allergies Allergy/AdvReac Type Severity Reaction Status Date / Time No Known Allergies Allergy Verified 10/15/24 13:41 Vital Signs Vital Signs - 24 hr 11/21/24 11:54 11/21/24 15:53 11/21/24 20:50 Temperature 36.1 C L 36.3 C L 36.2 C L Pulse Rate 84 88 84 Respiratory Rate 18 18 20 Blood Pressure 122/81 115/67 141/81 H Pulse Oximetry 97 96 99 11/22/24 00:45 11/22/24 04:50 11/22/24 08:00 Temperature 35.9 C L 36.2 C L 35.6 C L Pulse Rate 85 73 70 Respiratory Rate 18 16 18 Blood Pressure 129/82 136/81 125/74 Pulse Oximetry 97 97 99 Exam 2 Const: General: comfortable and no acute distress HENMT: Mouth: Yes moist mucous membranes Eyes: General: appearance normal, both eyes and all related structures S clera: sclerae normal Resp: Effort & Inspection: normal respiratory effort Cardio: Rate: regular rate Rhythm: regular rhythm Heart sounds: no murmurs Skin: General skin exam: normal color Neuro: Speech: normal speech Psych: Mental Status: mental status grossly normal Affect: normal affect Results Labs and Meds 11/22/24 05:59 11/22/24 05:59 Lab results: Cardiac Enzymes 11/22/24 Range/Units 05:59 AST 54 (17-59) U/L CBC 11/22/24 Range/Units 05:59 WBC 7.8 (4.5-10.0) K/mm3 RBC 4.17 L (4.6-6.20) M/mm3 Hgb 13.0 L (14.0-18.0) g/dL Hct 39.5 L (42.0-52.0) % Plt Count 251 (150-375) k/mm3 Comprehensive Metabolic Panel 11/22/24 Range/Units 05:59 Sodium 137 (137-145) mmol/L Potassium 3.7 (3.4-5.0) mmol/L Chloride 103 (98-107) mmol/L Carbon Dioxide 27 (22-30) mmol/L BUN < 2 L (9-20) mg/dL Creatinine 0.54 L (0.7-1.3) mg/dL Glucose 136 H (65-110) mg/dL Calcium 8.7 (8.4-10.2) mg/dL AST 54 (17-59) U/L ALT 128 H (6-50) U/L Alkaline Phosphatase 101 (38-126) U/L Total Protein 6.9 (6.3-8.2) g/dL Albumin 3.6 (3.5-5.1) g/dL Intake and Output 11/21/24 11/22/24 11/22/24 23:59 07:59 15:59 Intake Total 1236 200 Balance 1236 200 Intake: IV 1000 Lactated Ringers 1,000 ml @ 100 1000 mls/hr IV CONT .Q10H [facility] Rx#: [id number] Oral 236 200 Other: # Unmeasured Voids 4 3 Patient Weight 11/22/24 23:59 Weight 83.7 kg
--- NOTE | 2024-11-22 09:56 | P.SEDATION_ITS ---
Moderate Sedation Note-Pt Data Patient Data Diagnosis: Bacteremia Present Complaint: Bacteremia Procedure to be performed/Plan: Transesophageal Echocardiogram Allergies Allergy/AdvReac Type Severity Reaction Status Date / Time No Known Allergies Allergy Verified 10/15/24 13:41 Home Medications ?Medication ?Instructions ?Recorded ?Confirmed ?Type No Home Medications 10/15/24 11/14/24 History Current Medications: Active Medications Acetaminophen (Acetaminophen 325 Mg Tablet) 650 mg PO Q6H PRN PRN Reason: Mild Pain (1-3) or Fever Last Admin: 11/20/24 21:05 Dose: 650 mg Cephalexin HCl (Cephalexin 500 Mg Capsule) 1,000 mg PO Q6HR CECY Stop: 12/21/24 18:01 Last Admin: 11/22/24 05:08 Dose: 1,000 mg Chlordiazepoxide HCl (Chlordiazepoxide (*Crx) 25 Mg Capsule) 25 mg PO Q4H PRN PRN Reason: CIWA 8-15 Last Admin: 11/18/24 08:58 Dose: 25 mg Chlordiazepoxide HCl (Chlordiazepoxide (*Crx) 25 Mg Capsule) 50 mg PO Q4H PRN PRN Reason: CIWA 16 or greater Last Admin: 11/15/24 20:25 Dose: 50 mg Folic Acid (Folic Acid 1 Mg/0.2 Ml Inj) 1 mg IV PUSH [facility] Last Admin: 11/22/24 09:40 Dose: 1 mg Hydralazine HCl (Hydralazine Hcl 20 Mg/Ml Vial) 10 mg IV PUSH Q8H PRN PRN Reason: Blood Pressure - High Hydromorphone HCl (Hydromorphone Hcl Inj (*Crx) 2 Mg/Ml Vial) 0.5 mg IV PUSH Q3H PRN PRN Reason: Pain Rated 5 OR LESS Last Admin: 11/22/24 09:40 Dose: 0.5 mg Lactated Ringer's (Lr - Lactated Ringers Iv) 1,000 mls @ 100 mls/hr IV CONT .Q10H CECY Last Admin: 11/22/24 01:17 Dose: 100 mls/hr Nicotine (Nicotine (*Pbkc) 21 Mg Patch) 1 patch TRANSDERM DAILY CECY Last Admin: 11/22/24 09:40 Dose: 1 patch Ondansetron HCl (Ondansetron Inj 4 Mg/2 Ml Vial) 4 mg IV PUSH Q6H PRN PRN Reason: Nausea And Vomiting Last Admin: 11/22/24 09:40 Dose: 4 mg Pantoprazole Sodium (Pantoprazole Sodium Iv 40 Mg Vial) 40 mg IV PUSH Q12HR CECY Last Admin: 11/22/24 09:40 Dose: 40 mg Perflutren Lipid Microsphere (Perflutren Lipid Microspheres 1.5 Ml Vial Diluted To 10 Ml Total Volume) 0 ml IV PUSH ONCE PRN; Protocol PRN Reason: adequate visualization Stop: 11/25/24 09:34 Tramadol HCl (Tramadol Hcl (*Crx) 50 Mg Tablet) 50 mg PO Q4H PRN PRN Reason: PAIN RATED 5 OR LESS Last Admin: 11/19/24 17:41 Dose: 50 mg Sedation/Anesthesia: No previous sedation/anesthesia problems (including family history). 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 Code status: Full code. Years smoked: 5 Smoking status: Current every day smoker Tobacco type: e-cigarettes/vaping Alcohol intake: current Drinks per week: 84 Alcohol use details: A 5th of alcohol every 2 days. Substance use: current Substance use type: marijuana Other substance usage details: 08/2024 Last use: 11/13/24 Do You Feel Safe in your Home?: Yes Lack of Transportation: No Lack of Food: Never True Current Housing: I Have Housing Concerned About Future Housing: No Difficulty Paying Gas/Electric Bills: No Difficulty Paying for Meds: No Currently Unemployed: No Education: Grade School Difficulty w/ Childcare or Family Care: No Spiritual care concerns: No Mod Sed Physical Exam Physical Exam Pre Procedural Exam: Normal: Appearance, Lungs, Heart Rate, Heart Rhythm, Extremities and Skin Hours since solid foods: 12 Hours since liquid intake: 8 Mallampati Classification: class II Internal Medicine - PN: Obj Da Vital Signs Vital Signs: Vital Signs - 24 hr 11/21/24 11:54 11/21/24 15:53 11/21/24 20:50 Temperature 36.1 C L 36.3 C L 36.2 C L Pulse Rate 84 88 84 Respiratory Rate 18 18 20 Blood Pressure 122/81 115/67 141/81 H Pulse Oximetry 97 96 99 11/22/24 00:45 11/22/24 04:50 11/22/24 08:00 Temperature 35.9 C L 36.2 C L 35.6 C L Pulse Rate 85 73 70 Respiratory Rate 18 16 18 Blood Pressure 129/82 136/81 125/74 Pulse Oximetry 97 97 99 Intake/Output Intake/Output: Intake & Output 11/19/24 11/20/24 11/21/24 11/22/24 23:59 23:59 23:59 23:59 Intake Total 4090 5731 3576.3 200 Balance 4090 5731 3576.3 200 Meds/Results Medications: Active Medications Generic Name Dose Route Start Last Admin Trade Name Freq PRN Reason Stop Dose Admin Acetaminophen 650 mg 11/18/24 23:10 11/20/24 21:05 Acetaminophen 325 Mg Tablet PO 650 mg Q6H PRN Administration Mild Pain (1-3) or Fever Cephalexin HCl 1,000 mg 11/21/24 18:00 11/22/24 05:08 Cephalexin 500 Mg Capsule PO 12/21/24 18:01 1,000 mg Q6HR CECY Administration Chlordiazepoxide HCl 25 mg 11/15/24 19:54 11/18/24 08:58 Chlordiazepoxide (*Crx) 25 Mg Capsule PO 25 mg Q4H PRN Administration CIWA 8-15 Chlordiazepoxide HCl 50 mg 11/15/24 19:54 11/15/24 20:25 Chlordiazepoxide (*Crx) 25 Mg Capsule PO 50 mg Q4H PRN Administration CIWA 16 or greater Folic Acid 1 mg 11/16/24 09:00 11/22/24 09:40 Folic Acid 1 Mg/0.2 Ml Inj IV PUSH 1 mg QAM CECY Administration Hydralazine HCl 10 mg 11/17/24 16:40 Hydralazine Hcl 20 Mg/Ml Vial IV PUSH Q8H PRN Blood Pressure - High Hydromorphone HCl 0.5 mg 11/16/24 07:00 11/22/24 09:40 Hydromorphone Hcl Inj (*Crx) 2 Mg/Ml Vial IV PUSH 0.5 mg Q3H PRN Administration Pain Rated 5 OR LESS Lactated Ringer's 1,000 mls @ 100 mls/hr 11/14/24 22:35 11/22/24 01:17 Lr - Lactated Ringers Iv IV CONT 100 mls/hr .Q10H CECY Administration Nicotine 1 patch 11/16/24 09:00 11/22/24 09:40 Nicotine (*Pbkc) 21 Mg Patch TRANSDERM 1 patch DAILY CECY Administration Ondansetron HCl 4 mg 11/14/24 22:41 11/22/24 09:40 Ondansetron Inj 4 Mg/2 Ml Vial IV PUSH 4 mg Q6H PRN Administration Nausea And Vomiting Pantoprazole Sodium 40 mg 11/15/24 09:00 11/22/24 09:40 Pantoprazole Sodium Iv 40 Mg Vial IV PUSH 40 mg Q12HR CECY Administration Perflutren Lipid Microsphere 0 ml 11/22/24 09:34 Perflutren Lipid Microspheres 1.5 Ml Vial Diluted To 10 Ml Total Volume IV PUSH 11/25/24 09:34 ONCE PRN adequate visualization Protocol Tramadol HCl 50 mg 11/15/24 17:01 11/19/24 17:41 Tramadol Hcl (*Crx) 50 Mg Tablet PO 50 mg Q4H PRN Administration PAIN RATED 5 OR LESS Radiology Results: ITS Impressions Abdomen Ultrasound 11/17/24 11:46 IMPRESSION: Fat infiltration. Otherwise, normal limited abdominal ultrasound. MRCP 11/17/24 13:12 IMPRESSION: 1. Radiographic uncomplicated acute interstitial pancreatitis. 2. No cholelithiasis/choledocholithiasis or intra or extra hepatic biliary ductal dilation. 3. Diffuse hepatic steatosis. Abdomen/Pelvis CT 11/18/24 16:11 IMPRESSION: Without intravenous contrast, unable to evaluate for the progression of interstitial pancreatitis to necrotic or hemorrhagic pancreatitis. Bladder distention. Hepatomegaly Abdomen/Pelvis CTA 11/19/24 11:33 IMPRESSION: 1. Mild decrease in the peripancreatic inflammatory stranding consistent with improving acute interstitial pancreatitis. 2. Diffuse hepatic steatosis. 3. Nonspecific splenomegaly. Venous Doppler Study 11/19/24 12:41 IMPRESSION: 1. Patent right upper extremity veins. No evidence of venous thrombosis. Labs 11/22/24 05:59 11/22/24 05:59 Labs: Laboratory Results - last 24 hr 11/22/24 05:59 WBC 7.8 RBC 4.17 L Hgb 13.0 L Hct 39.5 L MCV 94.7 MCH 31.2 MCHC 32.9 RDW 14.6 H Plt Count 251 MPV 11.2 H Sodium 137 Potassium 3.7 Chloride 103 Carbon Dioxide 27 Anion Gap 7 BUN < 2 L Creatinine 0.54 L Estim Creat Clear Calc 182 Estimated GFR > 60 Glucose 136 H Calcium 8.7 Total Bilirubin 1.0 AST 54 ALT 128 H Alkaline Phosphatase 101 Total Protein 6.9 Albumin 3.6 ASA Classification/Sedation ASA Classification/Sedation ASA Class: III Emergent: No Risks: Risks, benefits and alternatives explained and patient/family accepted plan for sedation. Patient re-evaluated immediately prior to sedation.
[2024-11-22] MEDS: MIDAZOLAM HCL (*CRX) 2 MG/2 ML VIAL 6 MG IV PUSH (10:09)
[2024-11-22] MEDS: fentaNYL CITRATE INJ (*CRX) 100 MCG/2 ML VIAL IV PUSH (10:09)
--- NOTE | 2024-11-22 10:24 | WPDTEECHO ---
MT TransEsophageal Echocardiogram Date of procedure: 11/22/24 Procedure Type: Date Of Procedure: 11/22/2024 Brief History Of Present Illness: Patient is a 29 year old male referred for MT for MSSA bacteremia Indication: Bacteremia Procedure In Detail: After verbal and written informed consent was obtained, the patient risks, benefits, and alternatives explained in detail. The patient agreed to proceed with the plan of care as outlined above.?See pre-sedation note for further details. The patient was then placed in the appropriate 30 to 45 degree angle supine position at a slight left lateral decubitus position.?Patient was monitored throughout the study with telemetry, oxygen saturation, end-tidal CO2 monitoring, blood pressure, heart rate, and respirations.?The posterior hypopharynx was then locally anesthetized using repeated administration of Hurricaine spray as well as gargled viscous lidocaine. After local anesthetic of the posterior hypopharynx was achieved and the oral bite block placed, moderate sedation was administered.?After confirmation of adequate moderate sedation, the transesophageal echocardiogram probe was advanced through the oral bite block into the posterior hypopharynx and into the esophagus easily and without complication.?Multiple, multiplanar echocardiographic images were obtained in multiple standard re-projections.?At the conclusion of the study, the transesophageal echocardiogram probe was removed easily and without complication. The patient tolerated the procedure well without difficulty.?Patient was in sinus rhythm throughout the study. Moderate Sedation / Anesthesia Administration: Procedure / sedation start time: 10:09 Procedure / sedation end time: 10:21 Total of IV Versed 6mg and Fentanyl 100mg was administered by RN. FINDINGS: LEFT VENTRICLE: Size and systolic function were within normal limits. RIGHT VENTRICLE:?Size and systolic function within normal limits. LEFT ATRIUM: Normal size. RIGHT ATRIUM: Normal size. INTERATRIAL SEPTUM: Interatrial septum is anatomically normal. MITRAL VALVE: Mitral valve is anatomically normal with preserved leaflet excursion. No valvular vegetations. AORTIC VALVE: The aortic valve was an anatomically normal 3 leaflet structure with normal leaflet excursion. No valvular vegetations. TRICUSPID VALVE: The tricuspid valve is anatomically normal with normal leaflet excursion.? No mobile elements identified. PULMONIC VALVE: Grossly normal. No valvular vegetations. LEFT ATRIAL APPENDAGE: Anatomically normal structure with prominent pectinate muscles without thrombus or vegetation identified. ? PERICARDIUM: The pericardium was anatomically normal without significant pericardial effusion. ? AORTA: Normal. CONCLUSION: No evidence of infective endocarditis. Complications: None
--- NOTE | 2024-11-22 12:18 | P.DS_ITS ---
DS: Admitting Diagnosis Discharge Date 11/22/24 Admitting Diagnosis Abdominal pain. DS: Discharge Diagnosis Discharge Diagnosis (1) Alcohol withdrawal: Qualifiers: Complication of substance-induced condition: with unspecified complication Qualified Code(s): F10.939 - Alcohol use, unspecified with withdrawal, unspecified Code(s): F10.939 - Alcohol use, unspecified with withdrawal, unspecified Status: Acute (2) Acute alcoholic pancreatitis: Qualifiers: Acute pancreatitis complication: no infection or necrosis Qualified Code(s): K85.20 - Alcohol induced acute pancreatitis without necrosis or infection Code(s): K85.20 - Alcohol induced acute pancreatitis without necrosis or infection Status: Acute DS: Summary Hospital Course Hospital Course: This is a 29-year-old male with history of alcohol abuse pancreatitis, necrotic pancreatitis, pseudocyst, pancreatic stent with subsequent removal, and 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 He began experiencing severe, sharp left upper abdominal pain yesterday similar to prior episodes of marx creatitis. It radiates somewhat through to the back and is associated with nausea and loose stools. He has been taking ibuprofen without much benefit. He denies fever, vomiting, hematemesis, hematochezia, melena, hallucinations, and tremors. He is still drinking 10 to 12 shooters per day of alcohol. In the ED: Blood pressure was 144/98 on arrival. The remainder of his vital signs were stable. Labs were significant for a potassium of 3.3, total bilirubin 1.1, AST 297, ALT 362, alkaline phosphatase 141, lipase 427, ethyl alcohol 128. CT of the abdomen and pelvis showed acute interstitial edematous pancreatitis. He was given a L of normal saline, pantoprazole, ondansetron, morphine, and was started on a banana bag. He is being admitted in this setting for further treatment of pancreatitis. Patient was amanged for Acute pancreatitis and successfully transitioned to regular diet, discharged on PRN tramadol for pain control. MRCP was fone for elevated liver enzymes however it was normal, Gi was consulted and was part of his care. Elevated liver enzymes markedly improved and resolving. MSSA bacteremia, source unclear, MT showed no valvular disease. Discharged on Cephalxin x 4 week from today. Counseled about alcohol abuse, discharged on Thiamine, Folic acid and multivitamin. Patient had intermittent elevated blood pressure however BP this morning 128/86, he will follow up with PCP for close monitoring and starting antihypertensives if needed. F/u with PCP in 3-5 days F/u with GI as instructed. Time Spent with Patient Time attestation: Total time spent providing and/or coordinating discharge services: DS: Data Data Completed and Pending Labs on day of discharge: Labs from last 24 hours 11/22/24 05:59 WBC 7.8 RBC 4.17 L Hgb 13.0 L Hct 39.5 L MCV 94.7 MCH 31.2 MCHC 32.9 RDW 14.6 H Plt Count 251 MPV 11.2 H Sodium 137 Potassium 3.7 Chloride 103 Carbon Dioxide 27 Anion Gap 7 BUN < 2 L Creatinine 0.54 L Estim Creat Clear Calc 182 Estimated GFR > 60 Glucose 136 H Calcium 8.7 Total Bilirubin 1.0 AST 54 ALT 128 H Alkaline Phosphatase 101 Total Protein 6.9 Albumin 3.6 Preliminary micro results at discharge 11/19/24 11:06 Anaerobic Culture - Preliminary Abscess Discharge Plan Discharge Attending physician on discharge: Christos Arango Consulting providers: Jamie Miguel; Tosha Timmons Discharging Clinician: Christos Arango Anticipated Discharge Date/Time: 11/18/24 11:05 Patient Disposition: Home Activity: as tolerated Diet: low fat Discharge Instructions: Needs to follow-up with the mid level game designer Recommend strongly on alcohol cessation Patient needs alcohol rehabilitation. Patient Instructions: Antibiotic Form Patient Language: Australian Stand Alone Forms: General Discharge Information Follow-up/Referrals: PHYSICIAN,SAW REPAIRER [Primary Care Provider] - Steven Acosta MD [Physician] - Jamie Miguel MD [Physician] - Discharge Medications: New tramadol 50 mg Tablet 50 mg PO Q4H PRN (Reason: PAIN RATED 5 OR LESS) 5 Days Qty: 10 0RF chlordiazepoxide HCl 5 mg capsule 5 mg PO TID PRN (Reason: anxiety) 4 Days Qty: 10 0RF cephalexin 500 mg Capsule 1,000 mg PO Q6HR 31 Days Qty: 248 0RF multivitamin Tablet 1 tablet PO DAILY Qty: 30 0RF folic acid 1 mg tablet 1 mg PO DAILY 30 Days Qty: 30 0RF thiamine HCl (vitamin B1) 100 mg tablet 100 mg PO DAILY 30 Days Qty: 30 0RF No Action No Home Medications Date of admission: 11/16/24 16:12 Primary Care Provider: PHYSICIAN,SAW REPAIRER Admitting Provider: Hi Dickerson Attending physician on admission: Hi Dickerson Condition: Stable
== END 2024-11-22 13:02 | disposition home or self-care (01) | DRG 282 ==
LOC: ANHED 21:23 → ANHIMU 21:46 → ANH3MEDSUR 11-16 18:15
PROVIDERS: General Practice; Internal Medicine; Nurse Practitioner; Physician Assistant; Admitting Provider Internal Medicine; Emergency Provider Physician Assistant; Visit Provider Internal Medicine
PROC: B24BZZ4 Ultrasonography of Heart with Aorta, Transesophageal (ICD-10-PCS; CPT 93312; principal; 2024-11-22 10:00)
DX: K85.20 Alcohol induced acute pancreatitis without necrosis or infection (principal); B95.61 Methicillin susceptible Staphylococcus aureus infection as the cause of diseases classified elsewhere; K86.3 Pseudocyst of pancreas; K70.10 Alcoholic hepatitis without ascites; K86.1 Other chronic pancreatitis; F10.10 Alcohol abuse, uncomplicated; L03.113 Cellulitis of right upper limb; Y90.6 Blood alcohol level of 120-199 mg/100 ml; F17.290 Nicotine dependence, other tobacco product, uncomplicated; R03.0 Elevated blood-pressure reading, without diagnosis of hypertension; R78.81 Bacteremia; R56.9 Unspecified convulsions
CPT/HCPCS: 36415; 74174; 74176; 74177; 74183; 76376; 76705; 80053; 81003; 82077; 82948; 83615; 83690; 83735; 84132; 84478; 85025; 85027; 85055; 85610; 85730; 87040; 87070; 87075; 87181; 87205; 87641; 93312; 93320; 93325; 93971; 96361; 96365; 96366; 96374; 96375; 96376; 99285; A9270; A9577; G0378; G0379; J0360; J1171; J1885; J2060; J2250; J2270; J2405; J2470; J2543; J3010; J3370; J3411; J3475; J3480; J7030; J7040; J7042; J7120; Q9967

== ENCOUNTER 2025-01-30 11:05 | Emergency (ER) | payer OTHER, SELFPAY ==
--- OUTSIDE RECORDS SUMMARY | 2023-09-28 03:40 | XMS_ITS ---
Author Organization [facility] Address [address] [place] [address] Care Team Providers Care Triple Valve Mechanic Name Role Phone Erick Angel Primary Care Provider [phone] [facility], [facility] Unavailable U navailable Sydney Child Unavailable [phone] REASON FOR VISIT 1 Month Psych F/U & Med Refill Social History Sex Assigned At : Social History Observation Description Sex Assigned At Male Encounters Encounter Location Date Provider Diagnosis [address] [address] 09/28/2023 Sydney Child Plan Of Treatment No Information Progress Notes * Pancho ROBBINS JDOB: [birth year] (29 yo M)Acc No.[id number]:09/28/2023 UNLOCKED PROGRESS NOTE Patient: Alexis MANCILLAsulma Patterson Provider: Marga Child, MSN, LITHOGRAPHIC STRIPPER-BC, PMHNP-BC :1995 A ge:27 Y S ex:Male Date:09/28/2023 [facility] Pcp:Erick Angel Subjective: * Chief Complaints: * 1 . 1 Month Psych F/U & Med Refill. * Medical History: Objective: * Vitals: Assessment: Plan: * Treatment: * * Electronic signature of Sydney Child [id number] on 01/30/2025 at 12:21 PM CDT Sign off status: Pending * Provider: Marga Child, MSN, LITHOGRAPHIC STRIPPER-BC, PMHNP-BC Date: 0 09/28/2023 Generated for Carlos mcallister/Telly/Jignesh on: 0 01/30/2025 12:21 PM CDT
--- OUTSIDE RECORDS SUMMARY | 2023-10-01 03:40 | XMS_ITS ---
Author Organization [facility] Address [address] [place] [address] Care Team Providers Care Thrasher Feeder Name Role Phone rEick Angel Primary Care Provider [phone] [facility], [facility] Unavailable U navailable Sydney Child Unavailable [phone] REASON FOR VISIT r/s from 09/27--follow up appt Medications Medication SIG (Take, Route, Frequency, Duration) Notes Start Date End Date Status Folic Acid 1 MG Oral; Duration: 5 Days Active Daily-Yaniv - Oral; Duration: 5 Days Active Effexor XR 75 MG 1 capsule with food Orally Once a day; Duration: 30 days 01/22/2023 Active SEROquel XR 300 MG 1 tablet in the evening Orally Once a day Active Mirtazapine 15 MG 1 tablet at bedtime Orally Once a day; Duration: 30 days Active Propranolol HCl 20 MG 1 tablet Orally three times a day; Duration: 30 days Sending a 4 day bridge refill to cover until f/u. Active Wellbutrin XL 150 MG 1 tablet in the morning Orally Once a day; Duration: 30 days Sending a 4 day bridge refill to cover until f/u. Active Naltrexone HCl 50 MG 1 tablet Orally Onc e a day; Duration: 30 days Sending a 4 day bridge refill to cover until f/u. Active SEROquel XR 300 MG 1 tablet in the evening Orally Once a day; Duration: 30 days Sending a 4 day bridge refill to cover until f/u. Active Social History Sex Assigned At : Social History Observation Description Sex Assigned At Male Encounters Encounter Location Date Provider Diagnosis [address] [place] [address] 10/01/2023 Sydney Child Plan Of Treatment No Information Progress Notes * Pancho ROBBINS JDOB: [birth year] (29 yo M)Acc No.[id number]:10/01/2023 UNLOCKED PROGRESS NOTE Patient: Pancho MANCILLA Provider: Marga Child, MSN, STUDIO OPERATIONS ENGINEER IN CHARGE-BC, PMHNP-BC :1995 A ge:27 Y S ex:Male Date:10/01/2023 Address:[address] [place], [place] [id number] Pcp:Erick Angel Subjective: * Chief Complaints: * 1 . R/s from 09/27--follow up appt. * Medical History: * Medications: T aking Wellbutrin XL 150 MG Tablet Extended Release 24 Hour 1 tablet in the morning Orally Once a day , Notes to Pharmacist: Sending a 4 day bridge refill to cover until f/u., Taking SEROquel XR 300 MG Tablet Extended Release 24 Hour 1 tablet in the evening Orally Once a day , Notes to Pharmacist: Sending a 4 day bridge refill to cover until f/u., Taking Naltrexone HCl 50 MG Tablet 1 tablet Orally Once a day , Notes to Pharmacist: Sending a 4 day bridge refill to cover until f/u., Taking Propranolol HCl 20 MG Tablet 1 tablet Orally three times a day , Notes to Pharmacist: Sending a 4 day bridge refill to cover until f/u., Taking Mirtazapine 15 MG Tablet 1 tablet at bedtime Orally Once a day , Taking SEROquel XR 300 MG Tablet Extended Release 24 Hour 1 tablet in the evening Orally Once a day , Taking Daily-Yaniv - Tablet Oral , Taking Folic Acid 1 MG Tablet Oral , Taking Effexor XR 75 MG Capsule Extended Release 24 Hour 1 capsule with food Orally Once a day Objective: * Vitals: Assessment: Plan: * Treatment: * * Electronic signature of Sydney Child , [id number] on 01/30/2025 at 12:22 PM CDT Sign off status: Pending * Provider: C stewart L. Danyell, MSN, STUDIO OPERATIONS ENGINEER IN CHARGE-BC, PMHNP-BC Date: 0 10/01/2023 Generated for Carlos mcallister/Telly/Aprilitting on: 0 01/30/2025 12:22 PM CDT
--- OUTSIDE RECORDS SUMMARY | 2024-02-15 08:20 | XMS_ITS ---
Author Organization Replaced by [facility] Address [address] [place] [address] Care Team Providers Care Direct Care Professional Name Role Phone Erick Angel Primary Care Provider [facility], [facility] Unavailable U navailable Patricia Hartmann Unavailable [phone] REASON FOR VISIT Last seen 08/16, transfer from [facility] Social History Sex Assigned At : Social History Observation Description Sex Assigned At Male Encounters Encounter Location Date Provider Diagnosis [address] [place] [address] 02/15/2024 Patricia Hartmann Plan Of Treatment No Information Progress Notes * Pancho ROBBINS JDOB: [birth year] (29 yo M)Acc No.[id number]:02/15/2024 UNLOCKED PROGRESS NOTE Patient: Roxana CORTES Pancho Patterson Provider: Roxana Hartmann, DNP, ANALYSIS EVALUATOR, PMHNP- :1995 A ge:28 Y S ex:Male Date:02/15/2024 Address:[address] [place] [address] Pcp:Erick Angel Check In:08:22 AM BACKEND TESTER Subjective: * Chief Complaints: * 1 . Last seen 08/16, transfer from [facility]. * Medical History: Objective: * Vitals: Assessment: Plan: * Treatment: * * Electronic signature of Iris Oliveros [id number] on 01/30/2025 at 12:21 PM CDT Sign off status: Pending * Provider: Roxana Hartmann DNP, ANALYSIS EVALUATOR, PMHNP-BC Date: 0 02/15/2024 Generated for Printing/Faxing/eTransmitting on: 01/30/2025 12:21 PM CDT
--- NOTE | ~2025-01-30 | XR_ITS ---
EXAMINATION: XR hand RT min 3V DATE: 01/30/2025 12:18 INDICATION: Right hand infection TECHNIQUE: Posteroanterior, oblique and lateral views of the right hand were obtained. COMPARISON: None. FINDINGS: Bone alignment is normal. No fracture. Joint spaces are normal. No cortical erosions or periosteal reaction. Soft tissue swelling about the third digit. No soft tissue gas or radiopaque foreign bodies. IMPRESSION: 1. No osseous abnormality. Reviewed, dictated and finalized at location A. IMPRESSION: 1. No osseous abnormality.
--- NOTE | ~2025-01-30 | CT_ITS ---
EXAMINATION: CT abdomen pelvis w con DATE: 01/30/2025 13:01 INDICATION: Bilateral upper abdominal pain TECHNIQUE: Computed tomography (CT) of the abdomen and pelvis was performed with 100 mL Omnipaque-350 intravenous contrast. Automated exposure control and iterative reconstruction technique were employed. The dose-length product was 293.70 mGy-cm. COMPARISON: CT dated 11/19/2024 and MRI dated 11/17/2024 FINDINGS: Lung bases are clear. Heart size is normal. No pericardial or pleural effusion. Focal hepatic steatosis along the devaughn hepatis with corresponding signal dropout region on prior MRI. Decompressed gallbladder is normal. Splenic calcific lesions consistent with old granulomatous disease. Pancreas, bilateral adrenal glands and kidneys are normal. Again seen is a metallic density along the gastric mucosa of the lesser curvature of the stomach. Large amount of colonic stool which could be seen with constipation. Small bowel and appendix are normal. No free intraperitoneal gas or fluid. No pathologically enlarged abdominal or pelvic lymphadenopathy. Mild lumbar and lower thoracic spondylosis. Antegrade intramedullary hermann and subtrochanteric interlocking screw fixation at the proximal left femur. IMPRESSION: 1. Large amount of colonic stool suggestive of constipation. No other acute intra-abdominal/pelvic process. Reviewed, dictated and finalized at location A. IMPRESSION: 1. Large amount of colonic stool suggestive of constipation. No other acute int ra-abdominal/pelvic process.
[2025-01-30 11:10] VITALS: BP 137/99; PULSE 99; RESP 15; TEMP 36.5; O2SAT 98
--- NOTE | 2025-01-30 11:56 | ED_ITS ---
HPI - Extremity Injury (Upper) General Chief Complaint: Extremity Injury, Upper Stated Complaint: right hand sore not healing,fever Time Seen by Provider: 01/30/25 11:09 History of Present Illness HPI narrative: Patient is a 29-year-old male presents to the ER with 4 wounds to his right hand. He reports in the hospital 1 and half months ago with a staph infection. Patient reports he completed antibiotics, but then noticed a new spot developing a week and ago on his right middle finger near his right PIP joint. He reports he now has 4 areas purulent of drainage on his hand. Two on his right thumb, one on his middle finger, and one distal to his right pointer finger. Patient also endorses bilateral upper abdominal pain. He reports he has a history of pancreatitis and drink alcohol last night. Patient reports he is supposed to go to rehab today, but wanted to get his fingers checked out 1st. He denies any recent fevers, decreased range of motion, forearm/elbow pain or shortness of breath. Patient denies any IV drug use. Related Data Allergies Allergy/AdvReac Type Severity Reaction Status Date / Time No Known Allergies Allergy Verified 01/30/25 11:09 Review of Systems 2 Review of Systems: All systems reviewed & are unremarkable except as noted in HPI and below PMFSH Past Medical History Medical History Bacteremia Cellulitis Seizure not related to alcohol withdrawal Pancreatic pseudocyst Alcohol abuse Pancreatitis Surgical History Surgical History History of insertion of pancreatic stent it has subsequently been removed History of open reduction and internal fixation (ORIF) procedure repair left femur fracture Family History Family History Mother Cerebrovascular accident Hypertension Social History Social History Social History: Surrogate medical decision maker: Ember Jordan, friend. Code status: Full code. Years smoked: 5 Smoking status: Current every day smoker Tobacco type: e-cigarettes/vaping Alcohol intake: current Drinks per week: 84 Alcohol use details: A 5th of alcohol every 2 days. Substance use: current Substance use type: marijuana Other substance usage details: 08/2024 Last use: 11/13/24 Do You Feel Safe in your Home?: Yes Lack of Transportation: No Lack of Food: Never True Current Housing: I Have Housing Concerned About Future Housing: No Difficulty Paying Gas/Electric Bills: No Difficulty Paying for Meds: No Currently Unemployed: No Education: Grade School Difficulty w/ Childcare or Family Care: No Spiritual care concerns: No Exam 2 Narrative: GENERAL: Well appearing, well-nourished, non-toxic, in no acute distress. HEAD: Normocephalic, atraumatic. NECK: Supple. No adenopathy, no masses. RESPIRATORY: Airway patent, respirations nonlabored. Clear to auscultation bilaterally, no rales, rhonchi, wheezing. CARDIOVASCULAR: Regular rate and rhythm without murmurs, rubs, or gallops. Peripheral pulses 2+ and equal bilaterally. ABDOMINAL: Soft, nontender, nondistended, no hepatosplenomegaly. Normoactive BS. MUSCULOSKELETAL: Moves all extremities. Strength/ROM intact without gross deformities. SKIN: Warm, dry, normal color. No rashes. Two wounds on right thumb that are scabbed, one on middle finger with minimal purulent drainage, and one distal wound to right pointer finger. NEURO: A&O X3. Speech clear. Cranial nerves II-XII intact. No ataxic movements. PSYCHIATRIC: Appropriate mood and affect. Normal interaction. Course Vital Signs Vital signs: Vital Signs Temperature 36.5 C 01/30/25 11:10 Pulse Rate 99 01/30/25 11:10 Respiratory Rate 15 01/30/25 11:10 Blood Pressure 137/99 H 01/30/25 11:10 Pulse Oximetry 98 01/30/25 11:10 Oxygen Delivery Room Air 01/30/25 11:10 Temperature 36.5 C 01/30/25 11:10 Pulse Rate 84 01/30/25 12:17 Respiratory Rate 17 01/30/25 12:17 Blood Pressure 130/107 H 01/30/25 12:17 Pulse Oximetry 99 01/30/25 12:17 Oxygen Delivery Room Air 01/30/25 11:10 MDM - Extremity Injury (Upper) MDM Narrative Medical decision making narrative: Patient is a 29-year-old male presents to the ER with 4 wounds to his right hand. He reports in the hospital 1 and half months ago with a staph infection. Patient reports he completed antibiotics, but then noticed a new spot developing a week and ago on his right middle finger near his right PIP joint. He reports he now has 4 areas purulent of drainage on his hand. Two on his right thumb, one on his middle finger, and one distal to his right pointer finger. Patient also endorses bilateral upper abdominal pain. He reports he has a history of pancreatitis and drink alcohol last night. Patient reports he is supposed to go to rehab today, but wanted to get his fingers checked out 1st. He denies any recent fevers, decreased range of motion, forearm/elbow pain or shortness of breath. Patient denies any IV drug use. Labs Ordered: CBC, CMP, CRP, UDS, ethanol, lactic acid, lipase Imaging Ordered: CT abdomen pelvis with con, R hand x-ray Medications Ordered: Bactrim p.o., ibuprofen p.o. Results: Patient's CBC indicates white blood cell count of 10.9. His chemistry indicates a sodium of 136, BUN of 8, creatinine of 0.54, glucose of 115, AST of 103, ALT of 96, alk-phos of 127. Patient's urinalysis was negative for any acute abnormalities. His UDS was positive for opiates. Patient's ethyl alcohol level was below 10. Diagnosis: Patient's hand x-ray indicates Bone alignment is normal. No fracture. Joint spaces are normal. No cortical erosions or periosteal reaction. Soft tissue swelling about the third digit. No soft tissue gas or radiopaque foreign bodies. Patient's CT scan indicates Large amount of colonic stool suggestive of constipation. No other acute intra-abdominal/pelvic process. Patient Education/Shared MDM: Results of lab work and imaging shared with patient. He is requesting pain medications so patient will be offered ibuprofen. Patient strongly advised to maintain hydration status upon discharge and follow-up with his PCP as soon as possible to ensure wound healing. He will be discharged home with a prescription for Bactrim. Strict return precautions provided. Patient verbalized understanding and is in agreement with plan. Vital signs stable at time of discharge. All questions answered. Differential Diagnosis Differential diagnosis: Likely other (Osteomyelitis, sepsis, IV drug abuse) Lab Data Attestation: I reviewed the patient's lab results. 01/30/25 12:16 01/30/25 12:16 Labs: Lab Results 01/30/25 Range/Units 12:16 WBC 10.9 H (4.5-10.0) K/mm3 RBC 4.76 (4.6-6.20) M/mm3 Hgb 14.7 (14.0-18.0) g/dL Hct 44.3 (42.0-52.0) % MCV 93.1 (80-100) fl MCH 30.9 (26-34) pg MCHC 33.2 (32-36) g/dl RDW 14.4 (11.5-14.5) % Plt Count 273 (150-375) k/mm3 MPV 11.0 H (7.4-10.4) fl Immature Gran % (Auto) 1.4 H (0-0.5) % Neut % (Auto) 66.1 (45.5-73.1) % Lymph % (Auto) 21.6 (18.3-44.2) % Porter % (Auto) 6.7 (2.6-8.5) % Eos % (Auto) 3.7 (0-4.4) % Baso % (Auto) 0.5 (0.2-1.2) % Lymph # (Auto) 2.34 (0.9-3.2) K/mm3 Porter # (Auto) 0.7 H (0.1-0.6) K/mm3 Eos # (Auto) 0.4 H (0-0.3) K/mm3 Baso # (Auto) 0.1 (0.0-0.1) K/mm3 Abs Immat Gran (auto) 0.15 H (0.00-0.031) K/mm3 Absolute Neuts (auto) 7.2 H (1.3-6.7) K/mm3 Absolute Nucleated RBC 0.000 (0.0-0.012) K/mm3 Nucleated RBC % 0.0 (0.0-0.2) % Sodium 136 L (137-145) mmol/L Potassium 4.3 (3.4-5.0) mmol/L Chloride 100 (98-107) mmol/L Carbon Dioxide 28 (22-30) mmol/L Anion Gap 8 (4-12) mmol/L BUN 8 L D (9-20) mg/dL Creatinine 0.54 L (0.7-1.3) mg/dL Estim Creat Clear Calc 175 ml/min Estimated GFR > 60 (59 - ) Glucose 115 H (65-110) mg/dL Lactic Acid 1.2 (0.7-2.0) mmol/L Calcium 9.1 (8.4-10.2) mg/dL Total Bilirubin 0.5 (0.2-1.3) mg/dL AST 103 H (17-59) U/L ALT 96 H (6-50) U/L Alkaline Phosphatase 127 H (38-126) U/L C-Reactive Protein 0.8 (<1.0) mg/dL Total Protein 7.4 (6.3-8.2) g/dL Albumin 4.0 (3.5-5.1) g/dL Lipase 36 (23-300) U/L Urine Color Yellow (Yellow) Urine Appearance Clear (Clear) Urine pH 5.5 (5.0-9.0) Ur Specific [place] 1.018 (1.001-1.035) Urine Protein Negative (Negative) mg/dL Urine Glucose (UA) Negative (Negative) mg/dL Urine Ketones Negative (Negative) mg/dL Ur Blood (Man) Negative (Negative) Urine Nitrate Negative (Negative) Urine Bilirubin Negative (Negative) Urine Urobilinogen 0.2 (<2.0) mg/dL Leukocyte Esterase Rfl Negative (Negative) KATHI/UL Urine Opiates Screen Positive A (Negative) Urine Methadone Screen Negative (Negative) Ur Barbiturates Screen Negative (Negative) Ur Phencyclidine Scrn Negative (Negative) Ur Amphetamine Screen Negative (Negative) U Benzodiazepines Scrn Negative (Negative) Urine Cocaine Screen Negative (Negative) U Cannabinoids Screen Negative (Negative) Ethyl Alcohol < 10 (<10) mg/dL Imaging Data Attestation: I personally reviewed and interpreted this imaging study as follows: Radiologist's impression: Impressions Hand X-Ray 01/30/25 12:19 IMPRESSION: 1. No osseous abnormality. Abdomen/Pelvis CT 01/30/25 13:04 IMPRESSION: 1. Large amount of colonic stool suggestive of constipation. No other acute intra-abdominal/pelvic process. Discharge Plan Discharge Clinical Impression: Infection of right hand, Hand pain, right Alcohol dependence Qualifiers: Substance use status: unspecified alcohol-induced disorder Qualified Code(s): F 10.29 - Alcohol dependence with unspecified alcohol-induced disorder Patient Disposition: Home Condition: Stable Instructions: Antibiotic Form Patient Language: Spanish Prescriptions: No Action tramadol 50 mg Tablet 50 mg PO Q4H PRN (Reason: PAIN RATED 5 OR LESS) 5 Days Qty: 10 0RF cephalexin 500 mg Capsule 1,000 mg PO Q6HR 31 Days Qty: 248 0RF thiamine HCl (vitamin B1) 100 mg tablet 100 mg PO DAILY 30 Days Qty: 30 0RF folic acid 1 mg tablet 1 mg PO DAILY 30 Days Qty: 30 0RF multivitamin Tablet 1 tablet PO DAILY Qty: 30 0RF chlordiazepoxide HCl 5 mg capsule 5 mg PO TID PRN (Reason: anxiety) 4 Days Qty: 10 0RF Follow-up/Referrals: PHYSICIAN,MASTER CONTROL SUPERVISOR [Primary Care Provider, Internal Medicine]
[2025-01-30 12:17] VITALS: BP 130/107; PULSE 84; RESP 17; O2SAT 99
--- OUTSIDE RECORDS SUMMARY | 2025-01-30 12:22 | XMS_ITS | Clinical Summary ---
Author Organization [facility] Address [address] [place] [id number] Care Team Providers Care Body Shop Floorperson Name Role Phone Christine George STEFAN Primary Care Provider [phone] Allergies No known active allergies Medications Cariprazine HCl (VRAYLAR) 1.5 MG CapIndications:B ipolar 1 disorder ([facility]) Take 1.5 mg by mouth daily. 30 capsule 11 05/18/2019 Active Active Problems Problem Noted Date Diagnosed Date Family history of diabetes mellitus 10/25/2019 Essential hypertension 10/25/2019 History of narcotic addiction ([facility]) 05/04/2019 Anxiety 05/02/2019 Bipolar 1 disorder ([facility]) 05/02/2019 Depression 05/02/2019 Paranoia ([facility]) 05/02/2019 Hearing voices 05/02/2019 Antifreeze poisoning, intent ional self-harm, subsequent encounter 05/02/2019 Drug addiction in remission ([facility]) Hx of extrinsic asthma 05/02/2019 Adult BMI [...] on file 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 Gender Identity Not on file Sexual Orientation [...] 2:27 PM CDT Height 177.8 cm (5' 10) 10/25/2019 2:27 PM CDT Body Mass Index 26.4 10/25/2019 2:27 PM CDT Plan of Treatment Health Maintenance Due Date Last Done Comments Annual Physical 10/28/1999 Hepatitis C 2014 DTaP, Tdap and Td Vaccines ( 1 - Tdap) 10/28/2015 Hepatitis B Vaccines (1 of 3 - 19+ 3-dose series) 10/28/2015 HPV Vaccines (1 - 3-dose SCD M series) 10/28/2023 COVID-19 Vaccine (1 - 2023-2 5 season) 2024 PHQ-2 (Physician [place]) 06/01/2024 Meningococcal B Vaccine Aged Out No l [...] complete this topic Insurance [employer] Care Teams Body Shop Floorperson Relationship Specialty Start Date End Date Christine George FNP [address] [place] [id number] PCP - General Nurse Practitioner Family 05/02/19
--- OUTSIDE RECORDS SUMMARY | 2025-01-30 12:22 | XMS_ITS | Patient Health Record ---
Author Organization [facility] Address [address] [place] [address] Care Team Providers Care Cash Register Operator Name Role Phone Jeanne Anawoody Primary Care Provider BURLESQUICEOUS, [facility] Unavailable U arleneailable ForrestnuriaPatricia newsome Unavailable [phone] Allergies No Known Allergies Reason For Referral [...] 9 25 MG NA Cheng Jo [place] [id number] [facility] [place] NA 0 [place] 1 [id number] 06/15/2022 06/15/2022 ACETAMINOPHEN 325 MG / HYDROcodone BITARTRATE 5 MG ORAL TABLET 10.0 2 5.0 M PRESCRIPTION # FILLED WRITTEN DRUG LABEL QTY DAYS STRENGTH MME [facility] REFILL NO. REFILLS STATE 10/06/2022 10/06/2022 chlordiazePOXIDE HCL 36.0 9 25 MG NA Cheng Jo Md [id number] [facility] [place] NA 0 [place] 1 [id number] 06/15/2022 06/15/2022 HYDROcodone BITARTRATE-ACETAMINOPHEN 10.0 2 325 MG-5 MG 25 Shresth PRESCRIPTION # FILLED WRITTEN DRUG LABEL QTY DAYS STRENGTH MME PRESCR[facility]ER PHARMAC[facility] REFILL NO. REFILLS STATE 10/06/2022 10/06/2022 chlordiazePOXIDE HCL 36.0 9 25 MG NA Cheng Jo Md [id number] [facility] [place] NA 0 [place] 1 [id number] 06/15/2022 06/15/2022 HYDROcodone BITARTRATE-ACETAMINOPHEN 10.0 2 325 MG-5 MG 25 Shresth Reviewed PDMP Reviewed PDMP Problems Problem Type SNOMED Code ICD Code Onset Dates Problem Status W/U Status Risk Notes Problem Depression (225891316) Depression (F32.9) Active confirmed Problem Anxiety (52324012) Anxiety (F41.9) Active confirmed Encounters Encounter Location Date Provider Diagnosis [address] [place] [address] 02/15/2024 Erick Angel Plan Of Treatment No Information Insurance Providers Payer Name Payer Address Payer Phone Subscriber Number Group Number Insured Name Patient Relationship to Insured Coverage Start Date Coverage End Date [employer] [address] [place] [phone] [id number] Pancho Bender Self - patient is the insured 3 [employer] [address] [place] [phone] [id number] Pancho Bender Self - patient is the insured 3 Medical (General) History Medical History History ICD Code Substance use disorder Surgical History Surgery Date(Month/Year) Left femur/hermann Hospitalization History Reason Date(Month/Year) pancreatitis- [facility] 2022
[2025-01-30 12:28] LABS: Hematocrit 44.3 % (42.0-52.0); Hemoglobin 14.7 g/dL (14.0-18.0); Immature Granulocyte Percent A 1.4 % (0-0.5); Lymphocytes Absolute Auto 2.34 K/mm3 (0.9-3.2); Mean Corpuscular HGB Conc 33.2 g/dl (32-36); Mean Corpuscular Hemoglobin 30.9 pg (26-34); Mean Corpuscular Volume 93.1 fl (80-100); Nucleated Red Blood Cells Absolute Auto 0.000 K/mm3 (0.0-0.012); Nucleated Red Blood Cells Perc 0.0 % (0.0-0.2); Platelet Count Result 273 k/mm3 (150-375); Red Blood Count 4.76 M/mm3 (4.6-6.20); White Blood Count 10.9 K/mm3 (4.5-10.0)
[2025-01-30 12:29] LABS: Add Urine Microscopic? NO; Appearance Urine Clear (Clear); Glucose Urine UA Negative (Negative); Leukocyte Esterase Ur Negative LEU/UL (Negative); Nitrate Urine Negative (Negative); Specific Grav Ur 1.018 (1.001-1.035)
[2025-01-30 12:39] LABS: Alanine Aminotransferase 96 U/L (6-50); Albumin Level 4.0 g/dL (3.5-5.1); Alkaline Phosphatase 127 U/L (38-126); Anion Gap 8 mmol/L (4-12); Aspartate Amino Transferase 103 U/L (17-59); Bilirubin,Total 0.5 mg/dL (0.2-1.3); Blood Urea Nitrogen 8 mg/dL (9-20); CRP 0.8 mg/dL (<1.0); Calcium 9.1 mg/dL (8.4-10.2); Carbon Dioxide 28 mmol/L (22-30); Chloride 100 mmol/L (98-107); Estimated CRCL calculation 175 ml/min; Estimated Glomerular Filt Rate > 60; Glucose 115 mg/dL (65-110); Potassium 4.3 mmol/L (3.4-5.0); Sodium 136 mmol/L (137-145); Total Protein 7.4 g/dL (6.3-8.2)
[2025-01-30 12:46] LABS: Cannabinoid Screen Urine Negative (Negative)
[2025-01-30 12:50] LABS: Lipase 36 U/L (23-300)
[2025-01-30] MEDS: SULFAMETHOXAZOLE/TRIMETHOPRIM 800/160 MG DS TABLET 2 TAB PO (13:36)
[2025-01-30] MEDS: IBUPROFEN 600 MG TABLET PO (13:36)
== END 2025-01-30 13:35 | disposition home or self-care (01) ==
PROVIDERS: Emergency Provider Registered Nurse
DX: F10.29 Alcohol dependence with unspecified alcohol-induced disorder (principal); L08.9 Local infection of the skin and subcutaneous tissue, unspecified; Y90.0 Blood alcohol level of less than 20 mg/100 ml; F17.290 Nicotine dependence, other tobacco product, uncomplicated
CPT/HCPCS: 36415; 73130; 74177; 80053; 80307; 81003; 82077; 83605; 83690; 85025; 86140; 99284; A9270; Q9967

== ENCOUNTER 2025-03-20 10:45 | Inpatient (IN) | payer OTHER, SELFPAY ==
[2025-03-20 10:50] VITALS: BP 157/100; PULSE 71; RESP 20; TEMP 36.6; O2SAT 97
[2025-03-20 12:21] LABS: Hematocrit 46.0 % (42.0-52.0); Hemoglobin 16.0 g/dL (14.0-18.0); Immature Granulocyte Percent A 1.0 % (0-0.5); Lymphocytes Absolute Auto 1.69 K/mm3 (0.9-3.2); Mean Corpuscular HGB Conc 34.8 g/dl (32-36); Mean Corpuscular Hemoglobin 30.7 pg (26-34); Mean Corpuscular Volume 88.3 fl (80-100); Nucleated Red Blood Cells Absolute Auto 0.000 K/mm3 (0.0-0.012); Nucleated Red Blood Cells Perc 0.0 % (0.0-0.2); Platelet Count Result 285 k/mm3 (150-375); Red Blood Count 5.21 M/mm3 (4.6-6.20); White Blood Count 10.5 K/mm3 (4.5-10.0)
[2025-03-20 12:33] LABS: Alanine Aminotransferase 122 U/L (6-50); Albumin Level 4.9 g/dL (3.5-5.1); Alkaline Phosphatase 91 U/L (38-126); Anion Gap 13 mmol/L (4-12); Aspartate Amino Transferase 136 U/L (17-59); Bilirubin,Total 0.8 mg/dL (0.2-1.3); Blood Urea Nitrogen 15 mg/dL (9-20); Calcium 8.7 mg/dL (8.4-10.2); Carbon Dioxide 25 mmol/L (22-30); Chloride 103 mmol/L (98-107); Estimated CRCL calculation 163 ml/min; Estimated Glomerular Filt Rate > 60; Glucose 163 mg/dL (65-110); Lipase 950 U/L (23-300); Potassium 3.8 mmol/L (3.4-5.0); Sodium 141 mmol/L (137-145); Total Protein 8.5 g/dL (6.3-8.2)
--- NOTE | 2025-03-20 13:00 | ED_ITS ---
HPI - Abdominal Pain General Chief Complaint: Abdominal Pain Stated Complaint: abdominal pain since this am Time Seen by Provider: 03/20/25 12:08 Source: patient Mode of arrival: ambulatory Limitations: no limitations History of Present Illness HPI narrative: This is a 29-year-old male with history of alcoholic pancreatitis who presents to the ED for abdominal pain. Patient states that he woke up this morning was having his abdominal pain consistent with his prior episodes of pancreatitis. He has had nausea and vomiting and has not been able to tolerate solids or liquids. He was most recently admitted for this 4 months ago here and was otherwise doing well since then. His last drink was at approximately 9:00 p.m. last night. He has never had alcohol withdrawal symptoms. Denies fevers chills, chest pain, shortness of breath. Related Data Home Medications ?Medication ?Instructions ?Recorded ?Confirmed ?Last Taken ?Type No Home Medications 03/20/25 03/20/25 U nknown History Allergies Allergy/AdvReac Type Severity Reaction Status Date / Time No Known Allergies Allergy Verified 03/20/25 16:15 Review of Systems 2 Review of Systems: Gen.: Denies fevers or chills Eyes: Denies eye pain or visual change ENT: Denies congestion Respiratory: Denies shortness of breath or cough CV: Denies chest pain or palpitations GI: As per HPI denies burning, urgency, frequency or hematuria Musculoskeletal: Denies back pain or muscle pain Neuro: Denies numbness, tingling, weakness or focal weakness Skin: Denies rash Except as documented, all other systems reviewed and negative PMFSH Past Medical History Medical History Bacteremia Cellulitis Seizure not related to alcohol withdrawal Pancreatic pseudocyst Alcohol abuse Pancreatitis Surgical History Surgical History History of insertion of pancreatic stent it has subsequently been removed History of open reduction and internal fixation (ORIF) procedure repair left femur fracture Family History Family History Mother Cerebrovascular accident Hypertension Social History Social History Social History: Surrogate medical decision maker: Ember Jordan, friend. Code status: Full code. Years smoked: 5 Smoking status: Current every day smoker Tobacco type: e-cigarettes/vaping Alcohol intake: current Drinks per week: 84 Alcohol use details: A 5th of alcohol every 2 days. Substance use: former Substance use type: does not use Other substance usage details: 08/2024 Last use: 11/13/24 Do You Feel Safe in your Home?: Yes Lack of Transportation: No Lack of Food: Never True Current Housing: I Have Housing Concerned About Future Housing: No Difficulty Paying Gas/Electric Bills: No Difficulty Paying for Meds: No Currently Unemployed: No Education: Grade School Difficulty w/ Childcare or Family Care: No Spiritual care concerns: No Exam 2 Narrative: APPEARANCE: No acute distress, nontoxic, resting in bed EYES: EOMI HEENT: Normocephalic, atraumatic, OMM RESPIRATORY: No respiratory distress Clear to auscultation bilaterally with no rhonchi wheezing or rales. CARDIOVASCULAR: Regular rate and rhythm without murmurs rubs or gallops. ABDOMINAL: Soft, tenderness palpation to the epigastric without rebound or guarding MUSCULOSKELETAl: Moves all extremities. No clubbing, cyanosis or edema. NEURO: Awake and alert. Following commands, speech normal, no focal deficits SKIN:: Warm, dry. No rashes lesions or abrasions PSYCHIATRIC: Normal affect/mood, Course Vital Signs Vital signs: Vital Signs Temperature 97.9 F 03/20/25 10:50 Pulse Rate 71 03/20/25 10:50 Respiratory Rate 20 03/20/25 10:50 Blood Pressure 157/100 H 03/20/25 10:50 Pulse Oximetry 97 03/20/25 10:50 Oxygen Delivery Room Air 03/20/25 10:50 Temperature 97.4 F L 03/20/25 16:08 Pulse Rate 81 03/20/25 16:08 Respiratory Rate 15 03/20/25 16:08 Blood Pressure 139/83 03/20/25 16:08 Pulse Oximetry 97 03/20/25 16:08 Oxygen Delivery Room Air 03/20/25 10:50 MDM - Abdominal Pain MDM Narrative Medical decision making narrative: 29-year-old male presenting for abdominal pain nausea vomiting. On initial evaluation, patient was mild distress, afebrile, hemodynamically stable. He did have epigastric tenderness to palpation. Symptoms were consistent with his prior episodes of pancreatitis. He had a mild leukocytosis at 10.5. He had a slight transaminitis. Lipase was elevated at 950 consistent with pancreatitis. Given his multiple admissions for pancreatitis in the past and consistency of symptoms, I do not believe that advanced imaging is required at this time. Patient was given pain management and IV fluids. He will be admitted for further management of this. Case was discussed with hospitalist who will admit the patient. Differential Diagnosis Differential diagnosis: Likely abdominal pain, constipation, gastroenteritis and other (Pancreatitis, alcohol withdrawal) Medical Records Attestation: I reviewed the patient's medical records. Medical records narrative: Multiple admissions for alcoholic pancreatitis in the past most recently in October of this year Lab Data Attestation: I reviewed the patient's lab results. 03/20/25 12:16 03/20/25 12:16 Labs: Lab Results 03/20/25 Range/Units 12:16 WBC 10.5 H (4.5-10.0) K/mm3 RBC 5.21 (4.6-6.20) M/mm3 Hgb 16.0 (14.0-18.0) g/dL Hct 46.0 (42.0-52.0) % MCV 88.3 (80-100) fl MCH 30.7 (26-34) pg MCHC 34.8 (32-36) g/dl RDW 13.1 (11.5-14.5) % Plt Count 285 (150-375) k/mm3 MPV 10.4 (7.4-10.4) fl Immature Gran % (Auto) 1.0 H (0-0.5) % Neut % (Auto) 75.6 H (45.5-73.1) % Lymph % (Auto) 16.1 L (18.3-44.2) % [place] % (Auto) 6.5 (2.6-8.5) % Eos % (Auto) 0.3 (0-4.4) % Baso % (Auto) 0.5 (0.2-1.2) % Lymph # (Auto) 1.69 (0.9-3.2) K/mm3 [place] # (Auto) 0.7 H (0.1-0.6) K/mm3 Eos # (Auto) 0.0 (0-0.3) K/mm3 Baso # (Auto) 0.1 (0.0-0.1) K/mm3 Abs Immat Gran (auto) 0.10 H (0.00-0.031) K/mm3 Absolute Neuts (auto) 8.0 H (1.3-6.7) K/mm3 Absolute Nucleated RBC 0.000 (0.0-0.012) K/mm3 Nucleated RBC % 0.0 (0.0-0.2) % Sodium 141 (137-145) mmol/L Potassium 3.8 (3.4-5.0) mmol/L Chloride 103 (98-107) mmol/L Carbon Dioxide 25 (22-30) mmol/L Anion Gap 13 H (4-12) mmol/L BUN 15 D (9-20) mg/dL Creatinine 0.61 L (0.7-1.3) mg/dL Estim Creat Clear Calc 163 ml/min Estimated GFR > 60 (59 - ) Glucose 163 H (65-110) mg/dL Calcium 8.7 (8.4-10.2) mg/dL Total Bilirubin 0.8 (0.2-1.3) mg/dL AST 136 H (17-59) U/L ALT 122 H (6-50) U/L Alkaline Phosphatase 91 (38-126) U/L Total Protein 8.5 H (6.3-8.2) g/dL Albumin 4.9 (3.5-5.1) g/dL Lipase 950 H (23-300) U/L Ethyl Alcohol 70 (<10) mg/dL Discharge Plan Discharge Clinical Impression: Transaminitis Acute alcoholic pancreatitis Qualifiers: Acute pancreatitis complication: no infection or necrosis Qualified Code(s): K 85.20 - Alcohol induced acute pancreatitis without necrosis or infection Alcohol dependence Qualifiers: Substance use status: unspecified alcohol-induced disorder Qualified Code(s): F 10.29 - Alcohol dependence with unspecified alcohol-induced disorder Patient Disposition: Still a Patient Condition: Stable
--- NOTE | 2025-03-20 13:24 | P.HP_ITS ---
H&P: HPI History of Present Illness Date/Time: 03/20/25 13:24 Chief Complaint: Pancreatitis Narrative: 29-year-old male with a past medical history of EtOH abuse and chronic pancreatitis presents to the ED on 03/20/2025 with complaints of pancreatitis that began this this morning. He states the epigastric pain is consistent with his prior episodes of pancreatitis. He has had nausea and vomiting along with the pain and has not been able to tolerate any p.o. intake. Describes the pain as constant aching and at times stabbing. Admitted here 4 months ago with pancreatitis. Since patient's last drink was the last night about 9:00 p.m.. He states he only drinks ?a little bit? but it flares up his chronic pancreatitis when he does drink. The patient denies any history of withdrawal symptoms. Has been in inpatient rehab in the past. Denies needing information resources on alcohol abuse. Initial vitals 137/100 BP, 71 heart rate, respirations 20, afebrile, 97% on room air. leukocytosis 10.5. Transaminitis with AST 136, ALT 122. Lipase 950. UA negative. UDS positive for opiates. Ethanol 70 CT abdomen pelvis performed on 01/30/2025 shows hepatic steatosis along the devaughn hepatis, normal gallbladder and pancreas. Review of Systems Review of Systems: All systems reviewed & are unremarkable except as noted in HPI and below PMFSH Past Medical History Medical History Bacteremia Cellulitis Seizure not related to alcohol withdrawal Pancreatic pseudocyst Alcohol abuse Pancreatitis Surgical History Surgical History History of insertion of pancreatic stent it has subsequently been removed History of open reduction and internal fixation (ORIF) procedure repair left femur fracture Family History Family History Mother Cerebrovascular accident Hypertension Social History Social History Social History: Surrogate medical decision maker: Ember Jordan, friend. Code status: Full code. Years smoked: 5 Smoking status: Current every day smoker Tobacco type: e-cigarettes/vaping Alcohol intake: current Drinks per week: 84 Alcohol use details: A 5th of alcohol every 2 days. Substance use: former Substance use type: does not use Other substance usage details: 08/2024 Last use: 11/13/24 Do You Feel Safe in your Home?: Yes Lack of Transportation: No Lack of Food: Never True Current Housing: I Have Housing Concerned About Future Housing: No Difficulty Paying Gas/Electric Bills: No Difficulty Paying for Meds: No Currently Unemployed: No Education: Grade School Difficulty w/ Childcare or Family Care: No Spiritual care concerns: No Meds Home Medications and Allergies Home Medications ?Medication ?Instructions ?Recorded ?Confirmed ?Type No Home Medications 03/20/25 03/20/25 H istory Allergies Allergy/AdvReac Type Severity Reaction Status Date / Time No Known Allergies Allergy Verified 03/20/25 16:15 Vital Signs Vital Signs - 24 hr 03/20/25 10:50 Temperature 97.9 F Pulse Rate 71 Respiratory Rate 20 Blood Pressure 157/100 H Pulse Oximetry 97 Oxygen Delivery Room Air Exam Narrative: GENERAL: non-toxic appearing, in no acute distress. HEAD: Normocephalic, atraumatic. EYES: PERRLA. Conjunctivae clear. NOSE: Normal no drainage. THROAT: Pharynx clear, no exudate. NECK: Trachea midline. No adenopathy, no masses. RESPIRATORY: Airway patent, shallow respirations. CTA. CARDIOVASCULAR: Regular rate and rhythm. GASTROINTESTINAL: Abdomen is soft but tender in the epigastric region. Bowel sounds hypoactive. GENITOURINARY: Defer MUSCULOSKELETAL: Moves all extremities. No gross deformities. No calf tenderness. SKIN: Warm, dry, normal color. NEURO: A&O X4. Speech clear PSYCHIATRIC: Withdrawn H&P: Results Labs Labs: Short CBC 03/20/25 Range/Units 12:16 WBC 10.5 H (4.5-10.0) K/mm3 Hgb 16.0 (14.0-18.0) g/dL Hct 46.0 (42.0-52.0) % Plt Count 285 (150-375) k/mm3 BMP 03/20/25 12:16 Sodium 141 Potassium 3.8 Chloride 103 Carbon Dioxide 25 BUN 15 D Creatinine 0.61 L Glucose 163 H Calcium 8.7 Liver Function 03/20/25 Range/Units 12:16 Total Bilirubin 0.8 (0.2-1.3) mg/dL AST 136 H (17-59) U/L ALT 122 H (6-50) U/L Alkaline Phosphatase 91 (38-126) U/L Albumin 4.9 (3.5-5.1) g/dL Assessment and Plan Assessment and plan (1) Acute on chronic pancreatitis: Code(s): K85.90 - Acute pancreatitis without necrosis or infection, unspecified; K86.1 - Other chronic pancreatitis Status: Acute Assessment and Plan: Patient with chronic pancreatitis and multiple admissions due to complications presents with symptoms consistent with acute pancreatitis. CT abdomen pelvis performed on 01/30/2025 shows hepatic steatosis along the devaughn hepatis, normal gallbladder and pancreas. - chronic on acute - IVF: 1 L NS in the ED. LR 125 mL/hr for 1 L. reassess in a.m. - trend lipase, currently: 950 - AST 136, ALT 122, total bilirubin 0.8. trend LFTs. - lipid panel added - pain control with hydromorphone scale for mild, moderate, severe-deescalate as able to when tolerate p.o. -Zofran first-line prn for nausea-Reglan second-line - CT abd/pelvis not indicated at this time. Continue to monitor labs, clinical symptoms - NPO, advance to clear liquid diet, and then advance patient's diet as tolerated. (2) Alcohol dependence: Qualifiers: Substance use status: unspecified alcohol-induced disorder Qualified Code(s): F10.29 - Alcohol dependence with unspecified alcohol-induced disorder Code(s): F10.20 - Alcohol dependence, uncomplicated Status: Acute Assessment and Plan: Patient states his last drink was on 03/19 at about 9:00 p.m.. Admits to drinking ?only a little bit.? Unable or unwilling to further elaborate. Ethanol 70 on UDS. Patient denies past withdrawal symptoms. -folic acid 1 mg p.o. daily -finding 100 mg p.o. daily - CIWA protocol in place Librium prn seizure precautions neurochecks Q4H - antiemetics PRN - readiness to quit: Patient declined care coordination consult for information and resources. Has been to inpatient rehab in the past. Plan Diet: Clear liquid diet. Advance as tolerated GI prophylaxis: NA DVT prophylaxis: SCDs lines/drains: PIV Fluids: 1 L NS bolus- LR@ 125 mL/hr started on 03/20 for 1 L Code status: Full Quality VTE Prophylaxis VTE prophylaxis: mechanical ordered Hospitalist MIPS Advance Care Plan I have confirmed that the patient's Advanced Care Plan is present, code status is documented, or surrogate decision maker is listed in patient medical record.: Yes Medication Reconciliation I have utilized all available resources to obtain, update and review the patients current medications (includes all prescriptions, OTC, herbals, cannabis, and nutritional supplements).: Yes
[2025-03-20] MEDS: SODIUM CHLORIDE 0.9% IV 1,000 ML 999 ML IV CONT (13:27)
[2025-03-20] MEDS: ONDANSETRON INJ 4 MG/2 ML VIAL IV PUSH (13:27)
[2025-03-20] MEDS: MORPHINE SULFATE (*CRX) 4 MG/ML INJ IV PUSH (13:27)
[2025-03-20 14:27] VITALS: BP 137/90; PULSE 77; RESP 18; O2SAT 99
[2025-03-20 14:47] LABS: Add Urine Microscopic? NO; Appearance Urine Clear (Clear); Glucose Urine UA Negative (Negative); Leukocyte Esterase Ur Negative LEU/UL (Negative); Nitrate Urine Negative (Negative); Specific Grav Ur 1.030 (1.001-1.035)
[2025-03-20 15:03] LABS: Cannabinoid Screen Urine Negative (Negative)
[2025-03-20] MEDS: METOCLOPRAMIDE HCL INJ 10 MG/2 ML VIAL 5 MG IV PUSH ×2 (15:17→21:30)
[2025-03-20] MEDS: HYDROmorphone HCL INJ (*CRX) 1 MG/ML SYR 0.4 MG IV PUSH (15:25)
[2025-03-20 15:26] VITALS: BP 145/88; PULSE 82; RESP 16; O2SAT 98
[2025-03-20 16:02] VITALS: BMI 25.1
[2025-03-20 16:08] VITALS: BP 139/83; PULSE 81; RESP 15; TEMP 36.3; O2SAT 97
--- NOTE | 2025-03-20 16:24 | ADMGEN ---
This patient, Alonso Bender, was admitted to 3 Med Surg Room 330-01. Patient/family oriented to hospital policies and general routines including ID bracelet, bed and alarms, visiting hours, pain management, procedures, bathroom and other care routines, personal items, smoking policy, room service/diet, and visiting hours. Got report from the ED. Information on how to activate the Rapid Response Team has been discussed. Patient/Family are encouraged to report perceived risks to care and to ask questions if they do not understand what they are told or what they should do.
[2025-03-20] MEDS: HYDROmorphone HCL INJ (*CRX) 1 MG/ML SYR 0.8 MG IV PUSH (18:47)
[2025-03-20] MEDS: HYDROmorphone HCL INJ (*CRX) 1 MG/ML SYR 0.6 MG IV PUSH (21:32)
[2025-03-20] MEDS: LACTATED RINGERS 1,000 ML 125 ML IV CONT (21:50)
[2025-03-20 22:00] VITALS: BP 127/80; PULSE 76; RESP 16; TEMP 36.7; O2SAT 99
[2025-03-21] MEDS: HYDROmorphone HCL INJ (*CRX) 1 MG/ML SYR 0.8 MG IV PUSH ×6 (00:32→21:55)
[2025-03-21] MEDS: METOCLOPRAMIDE HCL INJ 10 MG/2 ML VIAL 5 MG IV PUSH ×4 (03:24→21:56)
[2025-03-21] MEDS: HYDROmorphone HCL INJ (*CRX) 1 MG/ML SYR 0.6 MG IV PUSH (03:25)
[2025-03-21 06:00] VITALS: BP 136/81; PULSE 74; RESP 14; TEMP 36.6; O2SAT 97
[2025-03-21] MEDS: HYDROmorphone HCL INJ (*CRX) 1 MG/ML SYR 0.4 MG IV PUSH (06:17)
[2025-03-21 06:54] LABS: Hematocrit 39.3 % (42.0-52.0); Hemoglobin 13.7 g/dL (14.0-18.0); Mean Corpuscular HGB Conc 34.9 g/dl (32-36); Mean Corpuscular Hemoglobin 31.1 pg (26-34); Mean Corpuscular Volume 89.3 fl (80-100); Platelet Count Result 223 k/mm3 (150-375); Red Blood Count 4.40 M/mm3 (4.6-6.20); White Blood Count 11.9 K/mm3 (4.5-10.0)
[2025-03-21 07:17] LABS: Alanine Aminotransferase 118 U/L (6-50); Albumin Level 3.7 g/dL (3.5-5.1); Alkaline Phosphatase 93 U/L (38-126); Anion Gap 6 mmol/L (4-12); Aspartate Amino Transferase 145 U/L (17-59); Bilirubin,Total 1.5 mg/dL (0.2-1.3); Blood Urea Nitrogen 12 mg/dL (9-20); Calcium 7.8 mg/dL (8.4-10.2); Carbon Dioxide 27 mmol/L (22-30); Chloride 99 mmol/L (98-107); Estimated CRCL calculation 177 ml/min; Estimated Glomerular Filt Rate > 60; Glucose 122 mg/dL (65-110); Lipase 877 U/L (23-300); Potassium 3.2 mmol/L (3.4-5.0); Sodium 132 mmol/L (137-145); Total Protein 6.5 g/dL (6.3-8.2)
--- NOTE | 2025-03-21 07:30 | PM.IMPN ---
Progress Note: A&P Assessment and Plan (1) Acute on chronic pancreatitis: Code(s): K85.90 - Acute pancreatitis without necrosis or infection, unspecified; K86.1 - Other chronic pancreatitis Status: Acute Assessment and Plan: Patient with chronic pancreatitis and multiple admissions due to complications presents with symptoms consistent with acute pancreatitis. CT abdomen pelvis performed on 01/30/2025 shows hepatic steatosis along the devaughn hepatis, normal gallbladder and pancreas. - chronic on acute - IVF: 1 L NS in the ED. LR 125 mL/hr for 1 L. will continue fluids at 75 ml/hr - trend lipase, currently: 950-->877 - AST 136 --> 145, ALT 122 --> 118, total bilirubin 0.8--> 1.5. trend LFTs. - lipid panel added - pain control with hydromorphone scale for mild, moderate, severe-deescalate as able to when tolerate p.o. - Zofran first-line prn for nausea-Reglan second-line - CT abd/pelvis not indicated at this time. Continue to monitor labs, clinical symptoms - advance to clear liquid diet, and then advance patient's diet as tolerated. (2) Alcohol dependence: Qualifiers: Substance use status: unspecified alcohol-induced disorder Qualified Code(s): F10.29 - Alcohol dependence with unspecified alcohol-induced disorder Code(s): F10.20 - Alcohol dependence, uncomplicated Status: Acute Assessment and Plan: Patient states his last drink was on 03/19 at about 9:00 p.m.. Admits to drinking ?only a little bit.? Unable or unwilling to further elaborate. Ethanol 70. - positive opiate on UDS. - Patient denies past withdrawal symptoms. -folic acid 1 mg p.o. daily -finding 100 mg p.o. daily - CIWA protocol in place - Librium prn - seizure precautions - neurochecks Q4H - antiemetics PRN - readiness to quit:Patient declined care coordination consult for information and resources.Has been to inpatient rehab in the past. Plan Diet: Clear liquid diet. Advance as tolerated GI prophylaxis: NA DVT prophylaxis: SCDs lines/drains: PIV Fluids: 1 L NS bolus- LR@ 125 mL/hr started on 03/20 for 1 Lthen d/c'd - will restart at 75 ml/hr Code status: Full disposition - once stable, will discharge with outpatient follow up. Case management to work with patient with resources for sobriety. Time Spent With Patient Time with patient: Greater than 35 minutes Subjective Date/time seen: 03/21/25 07:30 Interval history: This is a 29 y/o male patient with medical history of alcohol abuse and chronic pancreatitis and multiple admissions due to complications presents with symptoms consistent with acute pancreatitis. CT abdomen pelvis performed on 01/30/2025 shows hepatic steatosis along the devaughn hepatis, normal gallbladder and pancreas. Patient states his last drink was on 03/19 at about 9:00 p.m.. Admits to drinking ?only a little bit prior to abdominal pain starting. patient unable or unwilling to further elaborate. Ethanol 70 on admission. Patient was admitted to the hospitalist service for management. Patient has IV fluids x1 liter. he has continued with clear liquid diet and IV pain medications. Patient denies any N/V. He has not had any diarrhea. he has pain in his upper abdomen still. No distress. CIWA to continue to manage symptoms of withdrawal. Review of Systems Review of Systems: All systems reviewed & are unremarkable except as noted in HPI and below Exam Narrative: GENERAL: non-toxic appearing, in no acute distress. HEAD: Normocephalic, atraumatic. EYES: PERRLA. Conjunctivae clear. NOSE: Normal no drainage. THROAT: Pharynx clear, no exudate. NECK: Trachea midline. No adenopathy, no masses. RESPIRATORY: Airway patent, shallow respirations. CTA. CARDIOVASCULAR: Regular rate and rhythm. GASTROINTESTINAL: Abdomen is soft but tender in the epigastric region. Bowel sounds hypoactive. GENITOURINARY: Defer MUSCULOSKELETAL: Moves all extremities. No gross deformities. No calf tenderness. SKIN: Warm, dry, normal color. NEURO: A&O X4. Speech clear PSYCHIATRIC: Withdrawn Objective Data Vital Signs Vital Signs: Vital Signs - 24 hr 03/20/25 10:50 03/20/25 14:27 03/20/25 15:26 Temperature 97.9 F Pulse Rate 71 77 82 Respiratory Rate 20 18 16 Blood Pressure 157/100 H 137/90 145/88 H Pulse Oximetry 97 99 98 Oxygen Delivery Room Air 03/20/25 16:08 03/20/25 20:00 03/20/25 22:00 Temperature 97.4 F L 98.0 F Pulse Rate 81 76 Respiratory Rate 15 16 Blood Pressure 139/83 127/80 Pulse Oximetry 97 99 Oxygen Delivery Room Air 03/21/25 06:00 Temperature 97.8 F Pulse Rate 74 Respiratory Rate 14 Blood Pressure 136/81 Pulse Oximetry 97 Oxygen Delivery Intake/Output Intake/Output: Intake & Output 03/18/25 03/19/25 03/20/25 03/21/25 23:59 23:59 23:59 23:59 Intake Total 1300 1200 Balance 1300 1200 Meds/Results Medications: Active Medications Generic Name Dose Route Start Last Admin Trade Name Freq PRN Reason Stop Dose Admin Chlordiazepoxide HCl 25 mg 03/20/25 15:14 Chlordiazepoxide (*Crx) 25 Mg Capsule PO Q6H PRN Withdrawal Folic Acid 1 mg 03/21/25 09:00 Folic Acid 1 Mg Tablet PO DAILY [facility] Hydromorphone HCl 0.4 mg 03/20/25 14:24 03/21/25 06:17 Hydromorphone Hcl Inj (*Crx) 1 Mg/Ml Syr IV PUSH 0.4 mg Q3H PRN Administration Pain Rated 1-3 Hydromorphone HCl 0.6 mg 03/20/25 14:27 03/21/25 03:25 Hydromorphone Hcl Inj (*Crx) 1 Mg/Ml Syr IV PUSH 0.6 mg Q3H PRN Administration Pain Rated 4-6 Hydromorphone HCl 0.8 mg 03/20/25 14:28 03/21/25 00:32 Hydromorphone Hcl Inj (*Crx) 1 Mg/Ml Syr IV PUSH 0.8 mg Q3H PRN Administration Pain Rated 7-10 Metoclopramide HCl 5 mg 03/20/25 14:33 03/21/25 03:24 Metoclopramide Hcl Inj 10 Mg/2 Ml Vial IV PUSH 5 mg Q6H PRN Administration Nausea And Vomiting Potassium Chloride 40 meq 03/21/25 07:29 Potassium Chloride 20 Meq Packet (For Liquid) PO 03/21/25 07:30 ONCE ONE Thiamine HCl 100 mg 03/21/25 09:00 Thiamine Hcl 100 Mg Tablet PO DAILY [facility] Labs Labs: Laboratory Results - last 24 hr 03/20/25 03/20/25 03/21/25 12:16 14:41 06:14 WBC 10.5 H 11.9 H RBC 5.21 4.40 L Hgb 16.0 13.7 L Hct 46.0 39.3 L MCV 88.3 89.3 MCH 30.7 31.1 MCHC 34.8 34.9 RDW 13.1 13.2 Plt Count 285 223 MPV 10.4 10.9 H Immature Gran % (Auto) 1.0 H Neut % (Auto) 75.6 H Lymph % (Auto) 16.1 L [place] % (Auto) 6.5 Eos % (Auto) 0.3 Baso % (Auto) 0.5 Lymph # (Auto) 1.69 [place] # (Auto) 0.7 H Eos # (Auto) 0.0 Baso # (Auto) 0.1 Abs Immat Gran (auto) 0.10 H Absolute Neuts (auto) 8.0 H Absolute Nucleated RBC 0.000 Nucleated RBC % 0.0 Sodium 141 132 L Potassium 3.8 3.2 L Chloride 103 99 Carbon Dioxide 25 27 Anion Gap 13 H 6 BUN 15 D 12 Creatinine 0.61 L 0.56 L Estim Creat Clear Calc 163 177 Estimated GFR > 60 > 60 Glucose 163 H 122 H Calcium 8.7 7.8 L Total Bilirubin 0.8 1.5 H AST 136 H 145 H ALT 122 H 118 H Alkaline Phosphatase 91 93 Total Protein 8.5 H 6.5 Albumin 4.9 3.7 Lipase 950 H 877 H Urine Color Yellow Urine Appearance Clear Urine pH 5.5 Ur Specific [place] 1.030 Urine Protein Negative Urine Glucose (UA) Negative Urine Ketones Negative Ur Blood (Man) Negative Urine Nitrate Negative Urine Bilirubin Negative Urine Urobilinogen 0.2 Leukocyte Esterase Rfl Negative Urine Opiates Screen Positive A Urine Methadone Screen Negative Ur Barbiturates Screen Negative Ur Phencyclidine Scrn Negative Ur Amphetamine Screen Negative U Benzodiazepines Scrn Negative Urine Cocaine Screen Negative U Cannabinoids Screen Negative Ethyl Alcohol 70 Quality VTE Prophylaxis VTE prophylaxis: mechanical ordered Hospitalist MIPS Advance Care Plan I have confirmed that the patient's Advanced Care Plan is present, code status is documented, or surrogate decision maker is listed in patient medical record.: Yes Medication Reconciliation I have utilized all available resources to obtain, update and review the patients current medications (includes all prescriptions, OTC, herbals, cannabis, and nutritional supplements).: Yes The patient is not eligible for med reconciliation; the patient is in a emergent medical situation where delaying treatment would jeopardize the patients health.: Yes
[2025-03-21] MEDS: POTASSIUM CHLORIDE 20 MEQ PACKET (FOR LIQUID) 40 MEQ PO (08:08)
[2025-03-21] MEDS: FOLIC ACID 1 MG TABLET PO (08:08)
[2025-03-21] MEDS: THIAMINE HCL 100 MG TABLET PO (08:08)
[2025-03-21] MEDS: LACTATED RINGERS 1,000 ML 75 ML IV CONT (13:12)
[2025-03-21 13:43] VITALS: BP 138/86; PULSE 74; RESP 16; TEMP 36.6; O2SAT 96
[2025-03-21 20:00] VITALS: BP 128/78
[2025-03-21 20:57] VITALS: BP 132/80; PULSE 77; RESP 18; TEMP 36.2; O2SAT 97
[2025-03-21 23:55] VITALS: BP 124/76
[2025-03-22] MEDS: LACTATED RINGERS 1,000 ML 75 ML IV CONT ×2 (02:58→15:13)
[2025-03-22] MEDS: HYDROmorphone HCL INJ (*CRX) 1 MG/ML SYR 0.8 MG IV PUSH ×7 (02:59→21:21)
[2025-03-22 03:11] VITALS: BP 131/80
[2025-03-22 05:34] VITALS: BP 143/79; PULSE 74; RESP 18; TEMP 36.3; O2SAT 97
[2025-03-22] MEDS: METOCLOPRAMIDE HCL INJ 10 MG/2 ML VIAL 5 MG IV PUSH ×3 (06:14→21:20)
[2025-03-22 07:02] LABS: Hematocrit 38.8 % (42.0-52.0); Hemoglobin 13.5 g/dL (14.0-18.0); Immature Granulocyte Percent A 0.3 % (0-0.5); Lymphocytes Absolute Auto 1.94 K/mm3 (0.9-3.2); Mean Corpuscular HGB Conc 34.8 g/dl (32-36); Mean Corpuscular Hemoglobin 31.0 pg (26-34); Mean Corpuscular Volume 89.0 fl (80-100); Nucleated Red Blood Cells Absolute Auto 0.000 K/mm3 (0.0-0.012); Nucleated Red Blood Cells Perc 0.0 % (0.0-0.2); Platelet Count Result 153 k/mm3 (150-375); Red Blood Count 4.36 M/mm3 (4.6-6.20); White Blood Count 6.3 K/mm3 (4.5-10.0)
[2025-03-22 07:55] LABS: Alanine Aminotransferase 93 U/L (6-50); Albumin Level 3.9 g/dL (3.5-5.1); Alkaline Phosphatase 109 U/L (38-126); Anion Gap 8 mmol/L (4-12); Aspartate Amino Transferase 63 U/L (17-59); Bilirubin,Total 1.2 mg/dL (0.2-1.3); Blood Urea Nitrogen 8 mg/dL (9-20); Calcium 8.2 mg/dL (8.4-10.2); Carbon Dioxide 27 mmol/L (22-30); Chloride 99 mmol/L (98-107); Estimated CRCL calculation 189 ml/min; Estimated Glomerular Filt Rate > 60; Glucose 119 mg/dL (65-110); Lipase 267 U/L (23-300); Potassium 3.1 mmol/L (3.4-5.0); Sodium 134 mmol/L (137-145); Total Protein 6.6 g/dL (6.3-8.2)
[2025-03-22] MEDS: ONDANSETRON INJ 4 MG/2 ML VIAL IV PUSH ×3 (07:58→15:18)
[2025-03-22] MEDS: THIAMINE HCL 100 MG TABLET PO (07:59)
[2025-03-22] MEDS: FOLIC ACID 1 MG TABLET PO (07:59)
[2025-03-22 08:00] VITALS: O2SAT 97
[2025-03-22] MEDS: POTASSIUM CHLORIDE 20 MEQ ER TABLET 40 MEQ PO ×2 (08:59→15:14)
--- NOTE | 2025-03-22 12:19 | PM.IMPN ---
Progress Note: A&P Assessment and Plan (1) Acute on chronic pancreatitis: Code(s): K85.90 - Acute pancreatitis without necrosis or infection, unspecified; K86.1 - Other chronic pancreatitis Status: Acute Assessment and Plan: Patient with chronic pancreatitis and multiple admissions due to complications presents with symptoms consistent with acute pancreatitis. CT abdomen pelvis performed on 01/30/2025 shows hepatic steatosis along the devaughn hepatis, normal gallbladder and pancreas. - chronic on acute - IVF: 1 L NS in the ED. LR 125 mL/hr for 1 L. will continue fluids at 75 ml/hr - trend lipase, currently: 950-->877-->267. - AST 136 --> 145-->63, ALT 122 --> 118-->93, total bilirubin 0.8--> 1.5-->1.2. trend LFTs. - Lipid panel ordered. - Pain control with hydromorphone scale for mild, moderate, severe-deescalate as able to when tolerate p.o. - Zofran first-line prn for nausea-Reglan second-line - CT abd/pelvis not indicated at this time. Continue to monitor labs, clinical symptoms - advance to clear liquid diet, and then advance patient's diet as tolerated. - GI consult. (2) Alcohol dependence: Qualifiers: Substance use status: unspecified alcohol-induced disorder Qualified Code(s): F10.29 - Alcohol dependence with unspecified alcohol-induced disorder Code(s): F10.20 - Alcohol dependence, uncomplicated Status: Acute Assessment and Plan: Patient states his last drink was on 03/19 at about 9:00 p.m.. Admits to drinking ?only a little bit.? Unable or unwilling to further elaborate. Ethanol 70. -positive opiate on UDS. -Patient denies past withdrawal symptoms. -Folic acid 1 mg p.o. daily -finding 100 mg p.o. daily - CIWA protocol in place - Librium prn - Seizure precautions - Neurochecks Q4H - Antiemetics PRN - Readiness to quit:Patient declined care coordination consult for information and resources.Has been to inpatient rehab in the past. (3) Hypokalemia: Code(s): E87.6 - Hypokalemia Status: Acute Assessment and Plan: - Potassium 3.1 given Potassium Chloride 40 meq PO x1, recheck potassium was 3.4. Additional Potassium Chloride 40 meq PO x1 ordered. - Trend labs. (4) Constipation: Code(s): K59.00 - Constipation, unspecified Status: Acute Assessment and Plan: -Bowel sound hypoactive. -Dulcolax 5 mg PO x 1 and Miralax 17 gm PO daily PRN ordered. -Encourage water intake. Subjective Date/time seen: 03/22/25 12:19 Interval history: Patient reports pain in abdomen is an 8, frequent, and wavelike. 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 Reports nausea this morning that is starting to get better after a couple of medications. Review of Systems Review of Systems: All systems reviewed & are unremarkable except as noted in HPI and below Exam Const: General: uncomfortable Resp: Effort & Inspection: normal respiratory effort Auscultation: clear to auscultation bilaterally Cardio: Rate: regular rate Rhythm: regular rhythm GI: GI Palp: Yes Tenderness to palpation present (GI) (epigastric. ) Other: Hypoactive bowel sounds. Neuro: Speech: normal speech Extrem: General: no pedal edema Psych: Mental Status: mental status grossly normal Affect: normal affect Objective Data Vital Signs Vital Signs: Vital Signs - 24 hr 03/21/25 13:43 03/21/25 20:00 03/21/25 20:57 Temperature 98 F 97.2 F L Pulse Rate 74 77 Respiratory Rate 16 18 Blood Pressure 138/86 128/78 132/80 Pulse Oximetry 96 97 Oxygen Delivery 03/21/25 23:55 03/22/25 03:11 03/22/25 05:34 Temperature 97.3 F L Pulse Rate 74 Respiratory Rate 18 Blood Pressure 124/76 131/80 143/79 H Pulse Oximetry 97 Oxygen Delivery 03/22/25 08:00 Temperature Pulse Rate Respiratory Rate Blood Pressure Pulse Oximetry 97 Oxygen Delivery Room Air Intake/Output Intake/Output: Intake & Output 03/19/25 03/20/25 03/21/25 03/22/25 23:59 23:59 23:59 23:59 Intake Total 1300 2860 1340 Balance 1300 2860 1340 Meds/Results Medications: Active Medications Generic Name Dose Route Start Last Admin Trade Name Freq PRN Reason Stop Dose Admin Chlordiazepoxide HCl 25 mg 03/20/25 15:14 Chlordiazepoxide (*Crx) 25 Mg Capsule PO Q6H PRN Withdrawal Folic Acid 1 mg 03/21/25 09:00 03/22/25 07:59 Folic Acid 1 Mg Tablet PO 1 mg DAILY CECY Administration Hydromorphone HCl 0.4 mg 03/20/25 14:24 03/21/25 06:17 Hydromorphone Hcl Inj (*Crx) 1 Mg/Ml Syr IV PUSH 0.4 mg Q3H PRN Administration Pain Rated 1-3 Hydromorphone HCl 0.6 mg 03/20/25 14:27 03/21/25 03:25 Hydromorphone Hcl Inj (*Crx) 1 Mg/Ml Syr IV PUSH 0.6 mg Q3H PRN Administration Pain Rated 4-6 Hydromorphone HCl 0.8 mg 03/20/25 14:28 03/22/25 12:16 Hydromorphone Hcl Inj (*Crx) 1 Mg/Ml Syr IV PUSH 0.8 mg Q3H PRN Administration Pain Rated 7-10 Lactated Ringer's 1,000 mls @ 75 mls/hr 03/21/25 13:05 03/22/25 02:58 Lr - Lactated Ringers Iv IV CONT 75 mls/hr .[id number] CECY Administration Metoclopramide HCl 5 mg 03/20/25 14:33 03/22/25 06:14 Metoclopramide Hcl Inj 10 Mg/2 Ml Vial IV PUSH 5 mg Q6H PRN Administration Nausea And Vomiting Ondansetron HCl 4 mg 03/22/25 07:47 03/22/25 07:58 Ondansetron Inj 4 Mg/2 Ml Vial IV PUSH 4 mg Q6H PRN Administration Nausea And Vomiting Thiamine HCl 100 mg 03/21/25 09:00 03/22/25 07:59 Thiamine Hcl 100 Mg Tablet PO 100 mg DAILY CECY Administration Labs Labs: Laboratory Results - last 24 hr 03/22/25 06:46 WBC 6.3 RBC 4.36 L Hgb 13.5 L Hct 38.8 L MCV 89.0 MCH 31.0 MCHC 34.8 RDW 12.8 Plt Count 153 MPV 11.2 H Immature Gran % (Auto) 0.3 Neut % (Auto) 54.4 Lymph % (Auto) 31.0 [place] % (Auto) 9.6 H Eos % (Auto) 4.2 Baso % (Auto) 0.5 Lymph # (Auto) 1.94 [place] # (Auto) 0.6 Eos # (Auto) 0.3 Baso # (Auto) 0.0 Abs Immat Gran (auto) 0.02 Absolute Neuts (auto) 3.4 Absolute Nucleated RBC 0.000 Nucleated RBC % 0.0 Sodium 134 L Potassium 3.1 L Chloride 99 Carbon Dioxide 27 Anion Gap 8 BUN 8 L Creatinine 0.52 L Estim Creat Clear Calc 189 Estimated GFR > 60 Glucose 119 H Calcium 8.2 L Total Bilirubin 1.2 AST 63 H ALT 93 H Alkaline Phosphatase 109 Total Protein 6.6 Albumin 3.9 Lipase 267 Quality VTE Prophylaxis VTE prophylaxis: mechanical ordered
[2025-03-22 13:33] LABS: Magnesium 1.9 mg/dL (1.6-2.3)
[2025-03-22 13:48] LABS: Anion Gap 5 mmol/L (4-12); Blood Urea Nitrogen 9 mg/dL (9-20); Calcium 8.4 mg/dL (8.4-10.2); Carbon Dioxide 30 mmol/L (22-30); Chloride 99 mmol/L (98-107); Estimated CRCL calculation 161 ml/min; Estimated Glomerular Filt Rate > 60; Glucose 114 mg/dL (65-110); Potassium 3.4 mmol/L (3.4-5.0); Sodium 134 mmol/L (137-145)
[2025-03-22 14:00] VITALS: BP 143/90; PULSE 70; RESP 18; TEMP 36.2; O2SAT 97
[2025-03-22] MEDS: BISACODYL 5 MG TABLET EC PO (15:14)
[2025-03-22] MEDS: chlordiazePOXIDE (*CRX) 25 MG CAPSULE PO ×2 (15:24→21:24)
--- NOTE | 2025-03-22 16:43 | WPDGICN ---
Assessment and Plan Assessment and plan (1) Acute pancreatitis: Qualifiers: Acute pancreatitis complication: no infection or necrosis Pancreatitis type: alcohol induced Qualified Code(s): K85.20 - Alcohol induced acute pancreatitis without necrosis or infection Code(s): K85.90 - Acute pancreatitis without necrosis or infection, unspecified Status: Acute Assessment and Plan: The patient has mild acute pancreatitis secondary to alcohol use. Ondansetron was just started today, and is expected to work within next few hours and allow the patient to tolerate oral intake. We agree with the rest of the management, definitely no CT scan is needed since the patient has no clinical evidence to suspect complications such as necrosis. He received an adequate amount of fluid resuscitation during the 1st 24 hours and the LR infusion can be decreased as it has been ordered. Other than encouraging alcohol abstinence, there is no other specific treatment or measure we can suggest at this point. Lipase levels are not a prognostic indicator therefore they should not continue to be monitored. GI Consult Note Consult date/time: 03/22/25 16:43 Reason for consult: Alcohol related pancreatitis HPI: Alonso Bender is a 29 year old male with a longstanding history of alcohol abuse, admitted several times to this hospital in the past year. His last admission was 4 months ago with the same reasons. He came to the emergency room on 03/20/2025 with severe nausea and vomiting unable to tolerate anything by mouth. His latest CT scan on 01/30/2025 showed a normal pancreas. Admission labs: Hematocrit 46%. After lactated Ringer's resuscitation it is 38.8% today. Today's labs in addition show: BUN 9, creatinine 0.62, AST 63, ALT 93, bilirubin 1.2. Lipase level within normal limits. Review of Systems Review of Systems: All systems reviewed & are unremarkable except as noted in HPI and below PMFSH Past Medical History Medical History Bacteremia Cellulitis Seizure not related to alcohol withdrawal Pancreatic pseudocyst Alcohol abuse Pancreatitis Surgical History Surgical History History of insertion of pancreatic stent it has subsequently been removed History of open reduction and internal fixation (ORIF) procedure repair left femur fracture Family History Family History Mother Cerebrovascular accident Hypertension Social History Social History Social History: Surrogate medical decision maker: Ember Jordan, friend. Code status: Full code. Years smoked: 5 Smoking status: Current every day smoker Tobacco type: e-cigarettes/vaping Alcohol intake: current Drinks per week: 84 Alcohol use details: A 5th of alcohol every 2 days. Substance use: former Substance use type: does not use Other substance usage details: 08/2024 Last use: 11/13/24 Do You Feel Safe in your Home?: Yes Lack of Transportation: No Lack of Food: Never True Current Housing: I Have Housing Concerned About Future Housing: No Difficulty Paying Gas/Electric Bills: No Difficulty Paying for Meds: No Currently Unemployed: No Education: Grade School Difficulty w/ Childcare or Family Care: No Spiritual care concerns: No Meds Home Medications and Allergies Home Medications ?Medication ?Instructions ?Recorded ?Confirmed ?Type gabapentin 400 mg capsule 400 mg PO TID 03/22/25 03/22/25 History propranolol 20 mg tablet 20 mg PO BID 03/22/25 03/22/25 History quetiapine 400 mg tablet 600 mg PO HS 03/22/25 03/22/25 History quetiapine 50 mg tablet 50 mg PO BID 03/22/25 03/22/25 History Allergies Allergy/AdvReac Type Severity Reaction Status Date / Time No Known Allergies Allergy Verified 03/20/25 16:15 Vital Signs Vital Signs - 24 hr 03/21/25 20:00 03/21/25 20:57 03/21/25 23:55 Temperature 97.2 F L Pulse Rate 77 Respiratory Rate 18 Blood Pressure 128/78 132/80 124/76 Pulse Oximetry 97 Oxygen Delivery 03/22/25 03:11 03/22/25 05:34 03/22/25 08:00 Temperature 97.3 F L Pulse Rate 74 Respiratory Rate 18 Blood Pressure 131/80 143/79 H Pulse Oximetry 97 97 Oxygen Delivery Room Air 03/22/25 14:00 Temperature 97.2 F L Pulse Rate 70 Respiratory Rate 18 Blood Pressure 143/90 H Pulse Oximetry 97 Oxygen Delivery Exam Const: General: cooperative and healthy appearing Resp: Effort & Inspection: normal respiratory effort and able to speak in complete sentences Auscultation: clear to auscultation bilaterally Cardio: Rate: regular rate Rhythm: regular rhythm GI: Inspection: normal to inspection GI Palp: No No hepatosplenomegaly present Auscultation: normal bowel sounds Rectal Exam: deferred Skin: General skin exam: normal color Psych: Appearance: grossly normal Mental Status: mental status grossly normal Results Labs 03/22/25 06:46 03/22/25 13:02 Labs: Short CBC 03/22/25 Range/Units 06:46 WBC 6.3 (4.5-10.0) K/mm3 Hgb 13.5 L (14.0-18.0) g/dL Hct 38.8 L (42.0-52.0) % Plt Count 153 (150-375) k/mm3 BMP 03/22/25 03/22/25 06:46 13:02 Sodium 134 L 134 L Potassium 3.1 L 3.4 Chloride 99 99 Carbon Dioxide 27 30 BUN 8 L 9 Creatinine 0.52 L 0.62 L Glucose 119 H 114 H Calcium 8.2 L 8.4 Liver Function 03/22/25 Range/Units 06:46 Total Bilirubin 1.2 (0.2-1.3) mg/dL AST 63 H (17-59) U/L ALT 93 H (6-50) U/L Alkaline Phosphatase 109 (38-126) U/L Albumin 3.9 (3.5-5.1) g/dL
[2025-03-22 21:08] VITALS: BP 127/89; PULSE 77; RESP 18; TEMP 36.6; O2SAT 98
[2025-03-23] MEDS: HYDROmorphone HCL INJ (*CRX) 1 MG/ML SYR 0.8 MG IV PUSH ×3 (00:18→06:27)
[2025-03-23] MEDS: ONDANSETRON INJ 4 MG/2 ML VIAL IV PUSH ×4 (00:19→21:00)
[2025-03-23] MEDS: METOCLOPRAMIDE HCL INJ 10 MG/2 ML VIAL 5 MG IV PUSH ×2 (03:13→09:20)
[2025-03-23] MEDS: LACTATED RINGERS 1,000 ML 75 ML IV CONT (04:47)
[2025-03-23 05:49] VITALS: BP 136/77; PULSE 72; RESP 18; TEMP 36.3; O2SAT 98
[2025-03-23 05:57] LABS: Hematocrit 38.3 % (42.0-52.0); Hemoglobin 13.2 g/dL (14.0-18.0); Immature Granulocyte Percent A 0.3 % (0-0.5); Lymphocytes Absolute Auto 2.73 K/mm3 (0.9-3.2); Mean Corpuscular HGB Conc 34.5 g/dl (32-36); Mean Corpuscular Hemoglobin 30.7 pg (26-34); Mean Corpuscular Volume 89.1 fl (80-100); Nucleated Red Blood Cells Absolute Auto 0.000 K/mm3 (0.0-0.012); Nucleated Red Blood Cells Perc 0.0 % (0.0-0.2); Platelet Count Result 173 k/mm3 (150-375); Red Blood Count 4.30 M/mm3 (4.6-6.20); White Blood Count 6.3 K/mm3 (4.5-10.0)
[2025-03-23 06:15] LABS: Alanine Aminotransferase 80 U/L (6-50); Albumin Level 4.0 g/dL (3.5-5.1); Alkaline Phosphatase 101 U/L (38-126); Anion Gap 6 mmol/L (4-12); Aspartate Amino Transferase 49 U/L (17-59); Bilirubin,Total 0.9 mg/dL (0.2-1.3); Blood Urea Nitrogen 8 mg/dL (9-20); Calcium 8.6 mg/dL (8.4-10.2); Carbon Dioxide 27 mmol/L (22-30); Chloride 101 mmol/L (98-107); Cholesterol 182 mg/dL (0-200); Estimated CRCL calculation 152 ml/min; Estimated Glomerular Filt Rate > 60; Glucose 111 mg/dL (65-110); HDL Direct 50 mg/dL; Potassium 3.5 mmol/L (3.4-5.0); Sodium 134 mmol/L (137-145); Total Protein 6.9 g/dL (6.3-8.2); Triglycerides 187 mg/dL (<150)
[2025-03-23 08:00] VITALS: O2SAT 98
--- NOTE | 2025-03-23 08:51 | P.PNIM_ITS ---
Progress Note: A&P Assessment and Plan (1) Acute on chronic pancreatitis: Code(s): K85.90 - Acute pancreatitis without necrosis or infection, unspecified; K86.1 - Other chronic pancreatitis Status: Acute Assessment and Plan: Patient with chronic pancreatitis and multiple admissions due to complications presents with symptoms consistent with acute pancreatitis. CT abdomen pelvis performed on 01/30/2025 shows hepatic steatosis along the devaughn hepatis, normal gallbladder and pancreas. chronic on acute IVF: 1 L NS in the ED. LR 125 mL/hr for 1 L. dc fluids at 75 ml/hr Lipase trending down Lipid panel ordered. Pain control with hydromorphone scale for severe Added p.o. pain medication Senna Zofran first-line prn for nausea-Reglan second-line Per GI CT abd/pelvis not indicated at this time. Continue to monitor labs, clinical symptoms Regular diet Likely discharge in the morning Restart Seroquel (2) Alcohol dependence: Qualifiers: Substance use status: unspecified alcohol-induced disorder Qualified Code(s): F10.29 - Alcohol dependence with unspecified alcohol-induced disorder Code(s): F10.20 - Alcohol dependence, uncomplicated Status: Acute Assessment and Plan: Patient states his last drink was on 03/19 at about 9:00 p.m.. Admits to drinking ?only a little bit.? Unable or unwilling to further elaborate. Ethanol 70. CIWA protocol Librium prn, thiamine, folic acid, multivitamin Seizure precautions Readiness to quit:Patient declined care coordination consult for information and resources.Has been to inpatient rehab in the past. (3) Hypokalemia: Code(s): E87.6 - Hypokalemia Status: Acute Assessment and Plan: Potassium 3.1 given Potassium Chloride 40 meq PO x1, recheck potassium was 3.4. Additional Potassium Chloride 40 meq PO x1 ordered. Trend labs. Repleted as needed (4) Constipation: Code(s): K59.00 - Constipation, unspecified Status: Acute Assessment and Plan: Senna and MiraLax Time Spent With Patient Time with patient: Greater than 35 minutes Subjective Date/time seen: 03/23/25 08:51 Interval history: 29-year-old male well-known to the hospital here for acute pancreatitis after drinking alcohol Lipase yesterday was 267 Pain improving, patient transition to oral pain medication and regular diet. Likely discharge in morning. Review of Systems Review of Systems: 12 systems were reviewed and are negativ e except for as per HPI. Exam Narrative: General: well appearing, appears stated age. HEENT: normocephalic, atraumatic. Mucous membranes moist. EOMI, PERRLA, bilateral sclera anicteric, no conjunctival injection. Neck supple without JVD, lymphadenopathy, or bruit. Respiratory: clear to ascultation bilaterally. No rales/rhonic/wheezes. Cardiovascular: Regular rate and rhythm, normal S1-S2 upon ascultation. No murmurs, rubs, or clicks. PMI is nondisplaced, capillary refill less than 3 second. Abdomen: Soft, round, no pulsatile masses, nondistended and nontender. No rebound, no guarding. No CVA tenderness, no hepatosplenomegaly. Bowel sounds present to all four quadrants. No high pitch or tinkling sounds, resonant to percussion. Extremities: No cyanosis, clubbing, or edema present. Pulses are palpable 2/2. Active ROM to all four extremities. Neuro: Alert and orientated x 4. PERRLA. Cranial nerves 2-12 intact without focal deficit. Skin: Warm, dry, and intact, without rash, erythema, or lesion. Psych: pleasant, cooperative, normal speech, normal affect, no hallucinations, no dysarthia Objective Data Vital Signs Vital Signs: Vital Signs - 24 hr 03/22/25 14:00 03/22/25 20:00 03/22/25 21:08 Temperature 97.2 F L 97.9 F Pulse Rate 70 77 Respiratory Rate 18 18 Blood Pressure 143/90 H 127/89 Pulse Oximetry 97 98 Oxygen Delivery Room Air 03/23/25 05:49 Temperature 97.4 F L Pulse Rate 72 Respiratory Rate 18 Blood Pressure 136/77 Pulse Oximetry 98 Oxygen Delivery Intake/Output Intake/Output: Intake & Output 03/20/25 03/21/25 03/22/25 03/23/25 23:59 23:59 23:59 23:59 Intake Total 1300 2860 2498.8 1325 Balance 1300 2860 2498.8 1325 Meds/Results Medications: Active Medications Generic Name Dose Route Start Last Admin Trade Name Freq PRN Reason Stop Dose Admin Chlordiazepoxide HCl 25 mg 03/20/25 15:14 03/22/25 21:24 Chlordiazepoxide (*Crx) 25 Mg Capsule PO 25 mg Q6H PRN Administration Withdrawal Folic Acid 1 mg 03/21/25 09:00 03/22/25 07:59 Folic Acid 1 Mg Tablet PO 1 mg DAILY CECY Administration Hydromorphone HCl 0.4 mg 03/20/25 14:24 03/21/25 06:17 Hydromorphone Hcl Inj (*Crx) 1 Mg/Ml Syr IV PUSH 0.4 mg Q3H PRN Administration Pain Rated 1-3 Hydromorphone HCl 0.6 mg 03/20/25 14:27 03/21/25 03:25 Hydromorphone Hcl Inj (*Crx) 1 Mg/Ml Syr IV PUSH 0.6 mg Q3H PRN Administration Pain Rated 4-6 Hydromorphone HCl 0.8 mg 03/20/25 14:28 03/23/25 06:27 Hydromorphone Hcl Inj (*Crx) 1 Mg/Ml Syr IV PUSH 0.8 mg Q3H PRN Administration Pain Rated 7-10 Lactated Ringer's 1,000 mls @ 75 mls/hr 03/21/25 13:05 03/23/25 04:47 Lr - Lactated Ringers Iv IV CONT 75 mls/hr .[id number] CECY Administration Metoclopramide HCl 5 mg 03/20/25 14:33 03/23/25 03:13 Metoclopramide Hcl Inj 10 Mg/2 Ml Vial IV PUSH 5 mg Q6H PRN Administration Nausea And Vomiting Ondansetron HCl 4 mg 03/22/25 07:47 03/23/25 06:28 Ondansetron Inj 4 Mg/2 Ml Vial IV PUSH 4 mg Q6H PRN Administration Nausea And Vomiting Polyethylene Glycol 17 gm 03/22/25 12:21 Polyethylene Glycol 3350 17 Gm Powd.Pack PO QAM PRN Constipation Thiamine HCl 100 mg 03/21/25 09:00 03/22/25 07:59 Thiamine Hcl 100 Mg Tablet PO 100 mg DAILY CECY Administration Labs Labs: Laboratory Results - last 24 hr 03/22/25 03/23/25 13:02 05:22 WBC 6.3 RBC 4.30 L Hgb 13.2 L Hct 38.3 L MCV 89.1 MCH 30.7 MCHC 34.5 RDW 12.9 Plt Count 173 MPV 11.2 H Immature Gran % (Auto) 0.3 Neut % (Auto) 38.5 L Lymph % (Auto) 43.5 [place] % (Auto) 9.7 H Eos % (Auto) 7.5 H Baso % (Auto) 0.5 Lymph # (Auto) 2.73 [place] # (Auto) 0.6 Eos # (Auto) 0.5 H Baso # (Auto) 0.0 Abs Immat Gran (auto) 0.02 Absolute Neuts (auto) 2.4 Absolute Nucleated RBC 0.000 Nucleated RBC % 0.0 Sodium 134 L 134 L Potassium 3.4 3.5 Chloride 99 101 Carbon Dioxide 30 27 Anion Gap 5 6 BUN 9 8 L Creatinine 0.62 L 0.66 L Estim Creat Clear Calc 161 152 Estimated GFR > 60 > 60 Glucose 114 H 111 H Calcium 8.4 8.6 Magnesium 1.9 Total Bilirubin 0.9 AST 49 ALT 80 H Alkaline Phosphatase 101 Total Protein 6.9 Albumin 4.0 Triglycerides 187 H Cholesterol 182 LDL Cholesterol Direct 87 HDL Direct 50 Quality VTE Prophylaxis VTE prophylaxis: mechanical ordered Hospitalist MIPS Advance Care Plan I have confirmed that the patient's Advanced Care Plan is present, code status is documented, or surrogate decision maker is listed in patient medical record.: Yes Medication Reconciliation I have utilized all available resources to obtain, update and review the patients current medications (includes all prescriptions, OTC, herbals, cannabis, and nutritional supplements).: Yes
[2025-03-23 09:18] LABS: Lipase 142 U/L (23-300)
[2025-03-23 09:19] VITALS: PULSE 70
[2025-03-23] MEDS: PROPRANOLOL HCL 20 MG TABLET PO ×2 (09:19→16:01)
[2025-03-23] MEDS: THIAMINE HCL 100 MG TABLET PO (09:19)
[2025-03-23] MEDS: GABAPENTIN 400 MG CAPSULE PO ×3 (09:19→16:01)
[2025-03-23] MEDS: FOLIC ACID 1 MG TABLET PO (09:19)
[2025-03-23] MEDS: HYDROmorphone HCL INJ (*CRX) 1 MG/ML SYR 0.4 MG IV PUSH ×4 (09:24→22:20)
[2025-03-23] MEDS: HYDROcodone/acetaminophen (*CRX) 10-325 MG TABLET 1 TAB PO ×3 (09:53→18:20)
[2025-03-23 14:00] VITALS: BP 137/78; PULSE 70; RESP 18; TEMP 35.9; O2SAT 97
[2025-03-23 16:01] VITALS: PULSE 74
[2025-03-23] MEDS: PROCHLORPERAZINE MALEATE 5 MG TABLET 10 MG PO (16:01)
--- NOTE | 2025-03-23 16:54 | P.PNGI_ITS ---
Progress Note: A&P Assessment and Plan (1) Acute alcoholic pancreatitis: Qualifiers: Acute pancreatitis complication: no infection or necrosis Qualified Code(s): K85.20 - Alcohol induced acute pancreatitis without necrosis or infection Code(s): K85.20 - Alcohol induced acute pancreatitis without necrosis or infection Status: Acute Assessment and Plan: The patient pancreatitis is resolved, and is considered mild as discussed yesterday. The patient feels somewhat better although still having nausea and poor appetite. Will discontinue intravenous Reglan and switch to oral Compazine, keeping IV ondansetron prn . If patient is able to tolerate more solid diet he can be discharged over the weekend and, again, he is strongly encouraged to completely abstain from alcohol since that these episodes are very likely to recur. Subjective Date/time seen: 03/23/25 16:54 Objective Data Vital Signs Vital Signs: Vital Signs - 24 hr 03/22/25 20:00 03/22/25 21:08 03/23/25 05:49 Temperature 97.9 F 97.4 F L Pulse Rate 77 72 Respiratory Rate 18 18 Blood Pressure 127/89 136/77 Pulse Oximetry 98 98 Oxygen Delivery Room Air 03/23/25 08:00 03/23/25 09:19 03/23/25 14:00 Temperature 96.7 F L Pulse Rate 70 70 Respiratory Rate 18 Blood Pressure 137/78 Pulse Oximetry 98 97 Oxygen Delivery Room Air 03/23/25 16:01 Temperature Pulse Rate 74 Respiratory Rate Blood Pressure Pulse Oximetry Oxygen Delivery Intake/Output Intake/Output: Intake & Output 03/20/25 03/21/25 03/22/25 03/23/25 23:59 23:59 23:59 23:59 Intake Total 1300 2860 2498.8 1685 Balance 1300 2860 2498.8 1685 Meds/Results Medications: Active Medications Generic Name Dose Route Start Last Admin Trade Name Freq PRN Reason Stop Dose Admin Hydrocodone Bitart/Acetaminophen 1 tab 03/23/25 09:05 03/23/25 14:01 Hydrocodone/Acetaminophen (*Crx) 10-325 Mg Tablet PO 1 tab Q4H PRN Administration Pain Rated 4-6 Chlordiazepoxide HCl 25 mg 03/20/25 15:14 03/22/25 21:24 Chlordiazepoxide (*Crx) 25 Mg Capsule PO 25 mg Q6H PRN Administration Withdrawal Folic Acid 1 mg 03/21/25 09:00 03/23/25 09:19 Folic Acid 1 Mg Tablet PO 1 mg DAILY CECY Administration Gabapentin 400 mg 03/23/25 09:00 03/23/25 16:01 Gabapentin 400 Mg Capsule PO 400 mg TID CECY Administration Hydromorphone HCl 0.4 mg 03/20/25 14:24 03/23/25 13:22 Hydromorphone Hcl Inj (*Crx) 1 Mg/Ml Syr IV PUSH 0.4 mg Q3H PRN Administration Pain Rated 7-10 Multivitamins/Calcium 1 tablet 03/24/25 09:00 Therapeutic Multivitamins/Minerals Tab (*Bkc) PO DAILY [facility] Ondansetron HCl 4 mg 03/22/25 07:47 03/23/25 12:32 Ondansetron Inj 4 Mg/2 Ml Vial IV PUSH 4 mg Q6H PRN Administration Nausea And Vomiting Polyethylene Glycol 17 gm 03/22/25 12:21 Polyethylene Glycol 3350 17 Gm Powd.Pack PO QAM PRN Constipation Polyethylene Glycol 17 gm 03/24/25 09:00 Polyethylene Glycol 3350 17 Gm Powd.Pack PO QAM CECY Prochlorperazine Maleate 10 mg 03/23/25 15:32 03/23/25 16:01 Prochlorperazine Maleate 5 Mg Tablet PO 10 mg Q6H PRN Administration Nausea And Vomiting Propranolol HCl 20 mg 03/23/25 09:00 03/23/25 16:01 Propranolol Hcl 20 Mg Tablet PO 20 mg BID CEYC Administration Quetiapine Fumarate 50 mg 03/23/25 17:00 03/23/25 16:01 Quetiapine Fumarate 25 Mg Tablet PO 50 mg BID CECY Administration Quetiapine Fumarate 600 mg 03/23/25 21:00 Quetiapine Fumarate 100 Mg Tablet PO HS [facility] Thiamine HCl 100 mg 03/21/25 09:00 03/23/25 09:19 Thiamine Hcl 100 Mg Tablet PO 100 mg DAILY CECY Administration Labs Labs: Laboratory Results - last 24 hr 03/23/25 05:22 WBC 6.3 RBC 4.30 L Hgb 13.2 L Hct 38.3 L MCV 89.1 MCH 30.7 MCHC 34.5 RDW 12.9 Plt Count 173 MPV 11.2 H Immature Gran % (Auto) 0.3 Neut % (Auto) 38.5 L Lymph % (Auto) 43.5 [place] % (Auto) 9.7 H Eos % (Auto) 7.5 H Baso % (Auto) 0.5 Lymph # (Auto) 2.73 [place] # (Auto) 0.6 Eos # (Auto) 0.5 H Baso # (Auto) 0.0 Abs Immat Gran (auto) 0.02 Absolute Neuts (auto) 2.4 Absolute Nucleated RBC 0.000 Nucleated RBC % 0.0 Sodium 134 L Potassium 3.5 Chloride 101 Carbon Dioxide 27 Anion Gap 6 BUN 8 L Creatinine 0.66 L Estim Creat Clear Calc 152 Estimated GFR > 60 Glucose 111 H Calcium 8.6 Total Bilirubin 0.9 AST 49 ALT 80 H Alkaline Phosphatase 101 Total Protein 6.9 Albumin 4.0 Triglycerides 187 H Cholesterol 182 LDL Cholesterol Direct 87 HDL Direct 50 Lipase 142
[2025-03-23 21:13] VITALS: BP 127/77; PULSE 71; RESP 17; TEMP 36; O2SAT 99
[2025-03-24] MEDS: HYDROcodone/acetaminophen (*CRX) 10-325 MG TABLET 1 TAB PO ×2 (05:04→10:12)
[2025-03-24 05:37] VITALS: BP 113/72; PULSE 72; RESP 18; TEMP 36.1; O2SAT 98
[2025-03-24 06:08] LABS: Hematocrit 38.2 % (42.0-52.0); Hemoglobin 13.0 g/dL (14.0-18.0); Immature Granulocyte Percent A 0.4 % (0-0.5); Lymphocytes Absolute Auto 2.89 K/mm3 (0.9-3.2); Mean Corpuscular HGB Conc 34.0 g/dl (32-36); Mean Corpuscular Hemoglobin 31.0 pg (26-34); Mean Corpuscular Volume 91.2 fl (80-100); Nucleated Red Blood Cells Absolute Auto 0.000 K/mm3 (0.0-0.012); Nucleated Red Blood Cells Perc 0.0 % (0.0-0.2); Platelet Count Result 195 k/mm3 (150-375); Red Blood Count 4.19 M/mm3 (4.6-6.20); White Blood Count 7.3 K/mm3 (4.5-10.0)
[2025-03-24 06:25] LABS: Alanine Aminotransferase 66 U/L (6-50); Albumin Level 3.9 g/dL (3.5-5.1); Alkaline Phosphatase 83 U/L (38-126); Anion Gap 8 mmol/L (4-12); Aspartate Amino Transferase 34 U/L (17-59); Bilirubin,Total 0.5 mg/dL (0.2-1.3); Blood Urea Nitrogen 11 mg/dL (9-20); Calcium 8.6 mg/dL (8.4-10.2); Carbon Dioxide 26 mmol/L (22-30); Chloride 103 mmol/L (98-107); Estimated CRCL calculation 137 ml/min; Estimated Glomerular Filt Rate > 60; Glucose 132 mg/dL (65-110); Potassium 3.4 mmol/L (3.4-5.0); Sodium 137 mmol/L (137-145); Total Protein 6.7 g/dL (6.3-8.2)
--- NOTE | 2025-03-24 08:03 | P.DS_ITS ---
DS: Admitting Diagnosis Discharge Date 03/24/25 Admitting Diagnosis Acute on chronic pancreatitis DS: Discharge Diagnosis Discharge Diagnosis (1) Acute on chronic pancreatitis: Code(s): K85.90 - Acute pancreatitis without necrosis or infection, unspecified; K86.1 - Other chronic pancreatitis Status: Acute Assessment and Plan: Patient with chronic pancreatitis and multiple admissions due to complications presents with symptoms consistent with acute pancreatitis. CT abdomen pelvis pe rformed on 01/30/2025 shows hepatic steatosis along the devaughn hepatis, normal gallbladder and pancreas. chronic on acute IVF: 1 L NS in the ED. LR 125 mL/hr for 1 L. dc fluids at 75 ml/hr Lipase trending down Lipid panel ordered. Pain control with hydromorphone scale for severe Added p.o. pain medication Senna Zofran first-line prn for nausea-Reglan second-line Per GI CT abd/pelvis not indicated at this time. Continue to monitor labs, clinical symptoms Regular diet Restart Seroquel (2) Alcohol dependence: Qualifiers: Substance use status: unspecified alcohol-induced disorder Qualified Code(s): F10.29 - Alcohol dependence with unspecified alcohol-induced disorder Code(s): F10.20 - Alcohol dependence, uncomplicated Status: Acute Assessment and Plan: Patient states his last drink was on 03/19 at about 9:00 p.m.. Admits to drinking ?only a little bit.? Unable or unwilling to further elaborate. Ethanol 70. CIWA protocol Librium prn, thiamine, folic acid, multivitamin Seizure precautions Readiness to quit:Patient declined care coordination consult for information and resources. Has been to inpatient rehab in the past. (3) Hypokalemia: Code(s): E87.6 - Hypokalemia Status: Acute Assessment and Plan: Potassium 3.1 given Potassium Chloride 40 meq PO x1, recheck potassium was 3.4. Additional Potassium Chloride 40 meq PO x1 ordered. Trend labs. Repleted as needed (4) Constipation: Code(s): K59.00 - Constipation, unspecified Status: Acute Assessment and Plan: Senna and MiraLax DS: Summary Hospital Course Reason for hospitalization: Acute pancreatitis Hospital Course: 29-year-old male with a past medical history of EtOH abuse and chronic pancreatitis presents to the ED on 03/20/2025 with complaints of pancreatitis that began this this morning. Patient's last episode was about 4 months ago. Patient does admit to binge drinking. On hospital patient did not signs of alcohol withdrawal. His pain was treated with IV medication and aggressive fluid bolus with his lipase level trending down. Yesterday patient was transition to oral pain medications and started on clear liquids with advanced as tolerated for dinner. Patient did well with all foods is ready discharge. While patient was in hospital use also treated constipation and hypokalemia. Patient on being discharged on any medications however recommending stool softener. Status at Discharge Functional status at discharge: independent ambulation Time Spent with Patient Time attestation: Total time spent providing and/or coordinating discharge services: Time spent: Greater than 30 minutes Exam Narrative: General: well appearing, appears stated age. HEENT: normocephalic, atraumatic. Mucous membranes moist. EOMI, PERRLA, bilateral sclera anicteric, no conjunctival injection. Neck supple without JVD, lymphadenopathy, or bruit. Respiratory: clear to ascultation bilaterally. No rales/rhonic/wheezes. Cardiovascular: Regular rate and rhythm, normal S1-S2 upon ascultation. No murmurs, rubs, or clicks. PMI is nondisplaced, capillary refill less than 3 second. Abdomen: Soft, round, no pulsatile masses, nondistended and nontender. No rebound, no guarding. No CVA tenderness, no hepatosplenomegaly. Bowel sounds present to all four quadrants. No high pitch or tinkling sounds, resonant to percussion. Extremities: No cyanosis, clubbing, or edema present. Pulses are palpable 2/2. Active ROM to all four extremities. Neuro: Alert and orientated x 4. PERRLA. Cranial nerves 2-12 intact without focal deficit. Skin: Warm, dry, and intact, without rash, erythema, or lesion. Psych: pleasant, cooperative, normal speech, normal affect, no hallucinations, no dysarthia DS: Data Data Completed and Pending Labs on day of discharge: Labs from last 24 hours 03/24/25 03/23/25 05:38 05:22 WBC 7.3 RBC 4.19 L Hgb 13.0 L Hct 38.2 L MCV 91.2 MCH 31.0 MCHC 34.0 RDW 13.3 Plt Count 195 MPV 11.2 H Immature Gran % (Auto) 0.4 Neut % (Auto) 41.5 L Lymph % (Auto) 39.5 [place] % (Auto) 10.1 H Eos % (Auto) 8.1 H Baso % (Auto) 0.4 Lymph # (Auto) 2.89 [place] # (Auto) 0.7 H Eos # (Auto) 0.6 H Baso # (Auto) 0.0 Abs Immat Gran (auto) 0.03 Absolute Neuts (auto) 3.0 Absolute Nucleated RBC 0.000 Nucleated RBC % 0.0 Sodium 137 Potassium 3.4 Chloride 103 Carbon Dioxide 26 Anion Gap 8 BUN 11 Creatinine 0.74 Estim Creat Clear Calc 137 Estimated GFR > 60 Glucose 132 H Calcium 8.6 Total Bilirubin 0.5 AST 34 ALT 66 H Alkaline Phosphatase 83 Total Protein 6.7 Albumin 3.9 Lipase 142 Discharge Plan Discharge Consulting providers: Cori Person Discharging Clinician: Letty Grant Patient Disposition: Home Activity: may shower Diet: regular Discharge Instructions: Discharge instructions: Home meds continued, no new meds ordered Patient taken daily stool softener to prevent constipation Avoid alcohol prevent pancreatitis flares You are activity as tolerated Monitor blood pressures Avoid social areas, you wear a mask when in social settings Encouraged to continue with yearly vaccinations Return to the emergency department if he developed sudden shortness of breath, chest pain, nausea, vomiting, upset stomach or intractable diarrhea Return to the emergency department if you develop fever greater than 101.5 Follow-up with: Your primary care physician within 1-2 weeks for post hospitalization check up Thank you for choosing [facility] for your healthcare needs Patient Instructions: Antibiotic Form, Pancreatitis (DC) Patient Language: [place] Stand Alone Forms: General Discharge Information Follow-up/Referrals: Cori Person DO [Physician, Family Practice] Referral Note: As needed Discharge Medications: Continued propranolol 20 mg tablet 20 mg PO BID gabapentin 400 mg capsule 400 mg PO TID quetiapine 50 mg tablet 50 mg PO BID quetiapine 400 mg tablet 600 mg PO HS Date of admission: 03/20/25 13:29 Primary Care Provider: PHYSICIAN,OFFICE MACHINE SERVICER APPRENTICE Admitting Provider: Hi Dickerson Attending physician on admission: Hi Dickerson Condition: Stable Quality VTE Prophylaxis VTE prophylaxis: mechanical ordered Hospitalist MIPS Heart Failure (Exclusion) Patient has history of Heart Transplant or Left Ventricular Assistive Device?: No IF YES, STOP HERE Heart Failure (Qualifier) Patient has current or prior documentation of LVEF less than or equal to 40%, or mod/servere depressed LVSF?: No IF NO, STOP HERE
[2025-03-24 10:13] VITALS: PULSE 76
[2025-03-24] MEDS: PROPRANOLOL HCL 20 MG TABLET PO (10:13)
[2025-03-24] MEDS: THERAPEUTIC MULTIVITAMINS/MINERALS TAB (*BKC) 1 TABLET PO (10:14)
[2025-03-24] MEDS: THIAMINE HCL 100 MG TABLET PO (10:14)
[2025-03-24] MEDS: GABAPENTIN 400 MG CAPSULE PO (10:14)
[2025-03-24] MEDS: FOLIC ACID 1 MG TABLET PO (10:14)
[2025-03-24 10:30] VITALS: BP 126/86; PULSE 92; O2SAT 98
[2025-03-24 14:00] VITALS: BP 142/73; PULSE 89; RESP 18; TEMP 36.4; O2SAT 99
== END 2025-03-24 14:55 | disposition home or self-care (01) | DRG 282 ==
LOC: ANHED 12:59 → ANH3MEDSUR 16:00
PROVIDERS: Nurse Practitioner Adult Health; Nurse Practitioner Family; Admitting Provider Internal Medicine; Emergency Provider Student in an Organized Health Care Education/Training Program; Visit Provider Internal Medicine
DX: K85.20 Alcohol induced acute pancreatitis without necrosis or infection (principal); K86.1 Other chronic pancreatitis; F10.29 Alcohol dependence with unspecified alcohol-induced disorder; K76.0 Fatty (change of) liver, not elsewhere classified; E87.6 Hypokalemia; K59.00 Constipation, unspecified; F17.290 Nicotine dependence, other tobacco product, uncomplicated
CPT/HCPCS: 36415; 80048; 80053; 80061; 80307; 81003; 82077; 83690; 83735; 85025; 85027; 96374; 96375; 99285; A9270; J1171; J2270; J2405; J2765; J7030; J7120

== ENCOUNTER 2025-04-01 16:45 | Emergency (ER) | payer OTHER, SELFPAY ==
--- OUTSIDE RECORDS SUMMARY | 2023-10-01 03:40 | XMS_ITS ---
Author Organization [facility] Address [address] [place] [address] Care Team Providers Care Rewinder Operator Name Role Phone Erick Angel Primary Care Provider [phone] [facility], [facility] Unavailable U navailable Sydney Child Unavailable [phone] REASON FOR VISIT r/s from 09/27--follow up [...] Male Encounters Encounter Location Date Provider Diagnosis [address] [place] [address] 10/01/2023 Sydney Child Plan Of Treatment No Information Progress Notes * Pancho ROBBINS JDOB: [birth year] (29 yo M)Acc No.[id number]:10/01/2023 UNLOCKED PROGRESS NOTE Patient: Pancho MANCILLA Provider: Marga Child, MSN, GAS MASK ASSEMBLER-BC, PMHNP-BC :1995 A ge:27 Y S ex:Male Date:10/01/2023 Address:[address] [place], [place] [address] Pcp:Erick Angel Subjective: * Chief Complaints: * [...] * Electronic signature of Sydney Child , [id number] on 04/01/2025 at 04:47 PM CDT Sign off status: Pending * Provider: C stewart L. Danyell, MSN, GAS MASK ASSEMBLER-BC, PMHNP-BC Date: 0 10/01/2023 Generated for Carlos mcallister/Telly/Jignesh on: 1 06/01/2024 04:47 PM CDT
--- OUTSIDE RECORDS SUMMARY | 2024-02-15 08:20 | XMS_ITS ---
Author Organization [facility] Address [address] [place] [address] Care Team Providers Care Millroom Supervisor Name Role Phone Erick Angel Primary Care Provider [facility], [facility] Unavailable U navailable Patricia Hartmann Unavailable [phone] REASON FOR VISIT Last seen 08/16, transfer from [facility] Social History Sex Assigned At : Social History Observation Description Sex Assigned At Male Encounters Encounter Location Date Provider Diagnosis [address] [place] [address] 02/15/2024 Patricia Hartmann Plan Of Treatment No Information Progress Notes * Pancho ROBBINS JDOB: [birth year] (29 yo M)Acc No.[id number]:02/15/2024 UNLOCKED PROGRESS NOTE Patient: Roxana CORTES Pancho Patterson Provider: Roxana Hartmann, DNP, SUPERVISOR DIE CASTING, PMHNP- :1995 A ge:28 Y S ex:Male Date:02/15/2024 Address:[address] [place] [address] Pcp:Erick Angel Check In:08:22 AM FUSION ANALYST Subjective: * Chief Complaints: * 1 . Last seen 08/16, transfer from [facility]. * Medical History: Objective: * Vitals: Assessment: Plan: * Treatment: * * Electronic signature of Iris Oliveros , [id number] on 04/01/2025 at 04:47 PM CDT Sign off status: Pending * Provider: Roxana Hartmann DNP, SUPERVISOR DIE CASTING, PMHNP-BC Date: 0 02/15/2024 Generated for Printing/Faxing/eTransmitting on: 1 06/01/2024 04:47 PM CDT
[2025-04-01 16:47] VITALS: BP 146/100; PULSE 116; RESP 17; TEMP 36.3; O2SAT 98
--- OUTSIDE RECORDS SUMMARY | 2025-04-01 16:47 | XMS_ITS | Patient Health Record ---
Author Organization [facility] Address [address] [place] [address] Care Team Providers Care New Car Inspector Name Role Phone Erick Angel Primary Care Provider sonarDesign, [facility] Unavailable U navailable Allergies No Known Allergies Reason For Referral [...] 9 25 MG NA Cheng Jo Md [id number] [place], [place] NA 0 [place] 1 [id number] 06/15/2022 06/15/2022 ACETAMINOPHEN 325 MG / HYDROcodone BITARTRATE 5 MG ORAL TABLET 10.0 2 5.0 M PRESCRIPTION # FILLED WRITTEN DRUG LABEL QTY DAYS STRENGTH MME [facility]CR[facility] PHARMACY REFILL NO. REFILLS STATE 10/06/2022 10/06/2022 chlordiazePOXIDE HCL 36.0 9 25 MG NA Cheng Jo Md [id number] [place], [place] NA 0 [place] 1 [id number] 06/15/2022 06/15/2022 HYDROcodone BITARTRATE-ACETAMINOPHEN 10.0 2 325 MG-5 MG 25 Shresth PRESCRIPTION # FILLED WRITTEN DRUG LABEL QTY DAYS STRENGTH MME PRESCRIBER PHARMACY REFILL NO. REFILLS STATE 10/06/2022 10/06/2022 chlordiazePOXIDE HCL 36.0 9 25 MG NA Cheng Jo Md [id number] [place], [place] NA 0 [place] 1 [id number] 06/15/2022 06/15/2022 HYDROcodone BITARTRATE-ACETAMINOPHEN 10.0 2 325 MG-5 MG 25 Shresth Reviewed PDMP Reviewed PDMP Problems Problem Type SNOMED Code ICD Code Onset Dates Problem Status W/U Status Risk Notes Problem Depression (793613909) Depression (F32.9) Active confirmed Problem Anxiety (38109406) Anxiety (F41.9) Active confirmed Plan Of Treatment No Information Insurance Providers Payer Name Payer Address Payer Phone Subscriber Number Group Number Insured Name Patient Relationship to Insured Coverage Start Date Coverage End Date [employer] [address] [place] [address] [id number] Pancho Bender Self - patient is the insured 3 [employer] [address] [place] [address] [id number] Pancho Bender Self - patient is the insured 3 Medical (General) History Medical History History ICD Code Substance use disorder Surgical History Surgery Date(Month/Year) Left femur/hermann Hospitalization History Reason Date(Month/Year) [facility] 2022
--- OUTSIDE RECORDS SUMMARY | 2025-04-01 16:47 | XMS_ITS | Clinical Summary ---
Author Organization [facility] Address [address] [place] [address] Care Team Providers Care Rn Imcu Name Role Phone Christine George Primary Care Provider [phone] Allergies No known active allergies Medications Cariprazine HCl (VRAYLAR) 1.5 MG CapIndications:B ipolar 1 disorder ([facility]/HCC [facility]/HCC) Take 1.5 mg by mouth daily. 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
--- OUTSIDE RECORDS SUMMARY | 2025-04-01 16:48 | XMS_ITS | Data Portability ---
[facility] Address [address] [place] [address] Assessment No assessment recorded. Plan of Treatment Reminders Order Date Submit Date Provider Last Modified By Organization Details Last Modified Time Details Appointments None recorded. Lab CT + NG + TV, DNA, urine/swab 2019 020 [facility], [address] [place] [address], [address], [place], [address], 0 20:07:18 Referral None recorded. Procedures None recorded. Surgeries None recorded. Imaging None recorded. Medication Orders azithromyc in 500 mg tablet 2019 020 [id number], [address] [place], [place], [id number], 0 10:19:40 Patient TargetsNo targets recorded. Patient Instructions Encounter Date Encounter Id Patient Instructions Last Modified By Organization Details Last Modified Time 09/16/2019 [id number] cocaine use: car e instructions Not available [...] Negati ve negati ve Not Available [facility] ([facility]) [address] [facility], [place], [address], 09/19/2019 20:07:18 09/16/19 20 09/19/2019 CT + NG + TV, DNA, urine /swab gonococcus by CONRAD Negati ve negati ve Not Available [facility] ([facility]) [address] [facility], [place], [address], 09/19/2019 20:07:18 09/16/19 20 09/19/2019 CT + NG + TV, DNA, urine /swab trich vag by CONRAD Negati ve negati ve Not Available [facility] ([facility]) [address] [facility], [place], [address], 09/19/2019 20:07:18 Result Notes None recorded. Problems No Known Problems Procedures Surgical History Date Name Laterality Status Provider Name and Address Organization Details Recorded Time 5 procedure on femur completed Sara Franklin MA [place] - SIF 09/16/2019 10:06:28 Imaging Results None [...] mg tablet TAKE 1 TABLET BY MOUTH DRAW PRESS OPERATOR BEFORE BREAKFAST FOR 4 DOSES active [...] in Arterial blood by Pulse oximetry Systolic And Diastolic Provider Name and Address Organization Details Last Updated DateTime 0 95945.4 g 26.3 kg/m2 177.8 cm 112 /min 98.9 [degF] 97 % 97 % 132/94 mm[Hg] Sara Franklin MA [place] - [facility] 0 10:09:32 Social History Question Answer Notes LastModified by Organizat ion Details LastModified Time Tobacco Smoking Status Never Smoker Not Available [facility] 04/03/2020 03:39:29 Do You Have An Advance Directive? No [id number] Information not available 04/03/2020 What Is Your Level Of Caffeine Consumption? Heavy [id number] Information not available 04/03/2020 How Much Tobacco Do You Chew? None [id number] Information not available 04/03/2020 Have You Been To An Area Known To Be High Risk For COVID-19? No [id number] Information not available 04/03/2020 What Type Of Diet Are You Following? REGULAR [id number] Information not available 04/03/2020 Which Illicit Or Recreational Drugs Have You Used? Cocaine [id number] Information not available 04/03/2020 Education 10 Information no t available 09/16/2019 Are There Any Guns Present In Your Home? No [id number] Information not available 04/03/2020 Hard Of Hearing Or Deaf In One Or Both Ears? No Information not available 09/16/2019 Legally Blind In One Or Both Eyes? No Information no t available 09/16/2019 Marital Status Single Informatio n not available 09/16/2019 What Was The Date Of Your Most Recent Tobacco Screening? 09/16/2019 [id number] Information not available 04/03/2020 Performs Monthly Self-breast Exam? No Information no t available 09/16/2019 Seat Belts Used Routinely Yes Information not available 09/16/2019 Smoke Alarm In Home Yes [email or web address] Information not available 09/16/2019 At What Age Did You Start Smoking Tobacco? 22 [id number] Information not available 04/03/2020 General Stress Level Medium Information not available 09/16/2019 Do You Use Sunscreen Routinely? No [id number] Information not available 04/03/2020 On What Date Was Tobacco Cessation Counseling Provided? 09/16/2019 [id number] Information not available 04/03/2020 How Many Years Have You Smoked Tobacco? 1 [id number] Information not available 04/03/2020 Sex: Unknown Functional Status Question Answer Note LastModified by Organizat ion Details LastModified Time What is your level of alcohol consumption? Occasional [id number] Information not available 04/03/2020 What is your occupation? Unemployed Information not available 09/16/2019 Do you or have you ever used e-cigarettes or vape? Current user of electronic cigarettes [id number] Information not available 04/03/2020 What is your exercise level? Occasional [id number] Information not available 04/03/2020 Mental Status None recorded. Family History Nothing Reported. 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 Denies headaches, vision changes, chest pain, SOB, palpitatio ns. He states he has a PCP in [place]. Advised to follow up with PCP. Discussed DASH diet, daily exercises, and no drug use. BP goal <120/80. 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 He denies regular use. Declines rehab referral. Counseled pt on risks of use including mental harm, high blood pressure, and heart attack. Advised complete cessation. ER precaution s discussed. Exposure t o Chlamydia trachomatis 872064630 Z20.2 Partner tested positive for chlamydia. Will [...] 1 [facility] (MEDICAID HMO) [id number] Alonso Bender [id number] Alonso Bender Notes Date Note Type Note Provider Name and Address Organization Details Recorded Time 09/16/2019 text/html Sexually Transmi tted InfectionReported by PatientHPIFor context, patient reportschlamydia. For associated symptoms, patient reportsno abdominal pain,no back pain,no chills,no constipation,no diarrhea,no dribbling,no dysuria,no fever,no frequency,no groin pain,no hematuria,no nausea,no odor,no painful intercourse,no penile blisters,no penile rash,no pruritus,no urethral discharge,no urethral itch,no vomiting, andno weight loss.ROS as noted in the HPI 23yo M presents for STI testing. He states his partner tested positive for chlamydia and he needs to be treated. He denies pelvic pain, groin pain, lesions, dysuria, discharge, nausea, vomiting, fevers. SONG WICK Attn: Accounting,[address] [facility], [place], [address], [facility] 09/16/2019 10:34:20
--- NOTE | 2025-04-01 17:31 | ED.GENADULT ---
HPI - General Adult General Chief complaint: Skin/Abscess/Foreign Body Stated complaint: ?bit by something Time Seen by Provider: 04/01/25 16:59 History of Present Illness HPI narrative: Patient is a 29-year-old male who presents ER with concerns for infection to the right herrera. It started as a small pimple looking area about a week ago and has progressed to a large warm and red area that is swollen and draining some blood. Subjective fevers and chills. No chest pain or shortness of breath. Related Data Home Medications ?Medication ?Instructions ?Recorded ?Confirmed ?Last Taken ?Type gabapentin 400 mg capsule 400 mg PO TID 03/22/25 03/22/25 Unknown History propranolol 20 mg tablet 20 mg PO BID 03/22/25 03/22/25 Unknown History quetiapine 400 mg tablet 600 mg PO HS 03/22/25 03/22/25 Unknown History quetiapine 50 mg tablet 50 mg PO BID 03/22/25 03/22/25 Unknown History Allergies Allergy/AdvReac Type Severity Reaction Status Date / Time No Known Allergies Allergy Verified 04/01/25 16:50 Review of Systems Review of Systems: All systems reviewed & are unremarkable except as noted in HPI and below Constitutional: Constitutional: Reports no additional constitutional complaints ENT: Reports system reviewed and no additional complaints, except as documented Cardiovascular: Cardiovascular: Reports no additional cardiovascular complaints Respiratory: Respiratory: Reports no additional respiratory complaints Integumentary/Breasts: Skin/Breast: Reports system reviewed and no additional complaints, except as docu PMFSH Past Medical History Medical History Bacteremia Cellulitis Seizure not related to alcohol withdrawal Pancreatic pseudocyst Alcohol abuse Pancreatitis Surgical History Surgical History History of insertion of pancreatic stent it has subsequently been removed History of open reduction and internal fixation (ORIF) procedure repair left femur fracture Family History Family History Mother Cerebrovascular accident Hypertension Social History Social History Social History: Surrogate medical decision maker: Ember Jordan, friend. Code status: Full code. Years smoked: 5 Smoking status: Current every day smoker Tobacco type: e-cigarettes/vaping Alcohol intake: current Drinks per week: 84 Alcohol use details: A 5th of alcohol every 2 days. Substance use: former Substance use type: does not use Other substance usage details: 08/2024 Last use: 11/13/24 Do You Feel Safe in your Home?: Yes Lack of Transportation: No Lack of Food: Never True Current Housing: I Have Housing Concerned About Future Housing: No Difficulty Paying Gas/Electric Bills: No Difficulty Paying for Meds: No Currently Unemployed: No Education: Grade School Difficulty w/ Childcare or Family Care: No Spiritual care concerns: No Exam Narrative: GENERAL: Well-appearing, well-nourished, and in no acute distress. HEAD: Normocephalic, atraumatic. ENT: Mucous membranes moist. CHEST: Clear to auscultation. No respiratory distress. HEART: Regular rate and rhythm. Normal peripheral pulses. EXTREMITIES: Normal range of motion. No edema. SKIN: Warm, dry. Cellulitis right anterior herrera slightly lateral to midline with fluctuance centrally and a bloody scab. NEURO: Alert and oriented x3. PSYCH: Normal mood and affect. Course Course Emergency Course: Tolerated incision and drainage. Discharge with oral Bactrim. Pull packing in 2 days. Vital Signs Vital signs: Vital Signs Temperature 97.4 F L 04/01/25 16:47 Pulse Rate 116 H 04/01/25 16:47 Respiratory Rate 17 04/01/25 16:47 Blood Pressure 146/100 H 04/01/25 16:47 Pulse Oximetry 98 04/01/25 16:47 Oxygen Delivery Room Air 04/01/25 16:47 Temperature 97.4 F L 04/01/25 16:47 Pulse Rate 116 H 04/01/25 16:47 Respiratory Rate 17 04/01/25 16:47 Blood Pressure 146/100 H 04/01/25 16:47 Pulse Oximetry 98 04/01/25 16:47 Oxygen Delivery Room Air 04/01/25 16:47 Procedures Abscess I/D lower extremity: Date of Incision: 04/01/25 Time of Incision: 18:02 Side (if applicable): right Local Anesthetic: with epi Amount of anesthesia used (mL): 8 Technique: incised with #11 blade Irrigation: No Packing used?: iodoform I&D Results: Pus Medical Decision Making Differential Diagnosis Differential Diagnosis: Cellulitis, DVT, abscess retained foreign body Vital Signs Vital Signs: Vital Signs Temperature 97.4 F L 04/01/25 16:47 Pulse Rate 116 H 04/01/25 16:47 Respiratory Rate 17 04/01/25 16:47 Blood Pressure 146/100 H 04/01/25 16:47 Pulse Oximetry 98 04/01/25 16:47 Oxygen Delivery Room Air 04/01/25 16:47 Temperature 97.4 F L 04/01/25 16:47 Pulse Rate 116 H 04/01/25 16:47 Respiratory Rate 17 04/01/25 16:47 Blood Pressure 146/100 H 04/01/25 16:47 Pulse Oximetry 98 04/01/25 16:47 Oxygen Delivery Room Air 04/01/25 16:47 Discharge Plan Discharge Clinical Impression: Abscess Patient Disposition: Home Condition: Stable Instructions: Antibiotic Form, Abscess (ED) Additional Instructions: Remove your packing in 2 days. Return the ER if you are having fever over 100.4? F, you can not keep down food or water or medication, he lose consciousness, or have additional concerns. Patient Language: Bhutanese Prescriptions: New sulfamethoxazole-trimethoprim [Bactrim DS] 800-160 mg tablet 1 tablet PO Q12H Qty: 20 0RF hydrocodone-acetaminophen 5-325 mg tablet 1 tablet PO Q6H PRN (Reason: pain) Qty: 10 0RF No Action propranolol 20 mg tablet 20 mg PO BID gabapentin 400 mg capsule 400 mg PO TID quetiapine 50 mg tablet 50 mg PO BID quetiapine 400 mg tablet 600 mg PO HS Follow-up/Referrals: PHYSICIAN,FUEL CELL BINDER [Primary Care Provider, Internal Medicine] Sole Marcus DO [Physician, Family Practice] - 3 Days
--- OUTSIDE RECORDS SUMMARY | 2025-04-01 18:06 | XMS_ITS | Clinical Summary ---
Author Organization [facility] Address [address] [place] [address] Care Team Providers Care Statistics Tutor Name Role Phone Christine George Primary Care Provider [phone] Allergies No known active allergies Medications Cariprazine HCl (VRAYLAR) 1.5 MG CapIndications:B ipolar 1 disorder ([facility]/HCC [facility]/HCC) Take 1.5 mg by mouth daily. 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
[2025-04-01 18:14] VITALS: BP 136/86; PULSE 96; RESP 20; O2SAT 100
== END 2025-04-01 18:15 | disposition home or self-care (01) ==
LOC: ANHED 18:04
PROVIDERS: Emergency Provider Emergency Medicine
DX: L02.415 Cutaneous abscess of right lower limb (principal); F17.290 Nicotine dependence, other tobacco product, uncomplicated
CPT/HCPCS: 10061; 99283

== ENCOUNTER 2025-05-23 18:10 | Emergency (ER) | payer OTHER, SELFPAY ==
--- OUTSIDE RECORDS SUMMARY | 2024-02-15 13:20 | XMS_ITS ---
Author Organization [facility] Address [address] [place] [address] Phone [phone] Care Team Providers Care Lip Cutter And Scorer Name Role Phone Erick Angel APRN Primary Care Provider [facility], [facility] Unavailable U navailable Patricia Hartmann Unavailable [phone] REASON FOR VISIT Last seen 08/16, transfer from [facility] Social History Sex Observation Social History Observation Description Sex Observation Male Sexual Orientation Social History Observation Description Sexual Orientation Straight or heterose xual Gender Identity Social History Observation Description Gender Identity Male Encounters Date Time Type Facility Location Provider Diagnosis 02/15/2024 01:20 PM Office Visit [address] [place] [address] Patricia Hartmann Plan Of Treatment No Information Medical (General) History Medical History History ICD Code Substance use disorder Surgical History Surgery Date(Month/Year) Left femur/hermann Hospitalization History Reason Date(Month/Year) pancreatitis- [facility] 2022 Progress Notes * Alonso ROBBINSDOB: [birth year] (29 yo M)Acc No.[id number]:02/15/2024 UNLOCKED PROGRESS NOTE Patient: Roxana Alonso CORTES Provider: Roxana Hartmann DNP, APRN, PMHNP-BRYANT :1995 A ge:28 Y S ex:Male Date:02/15/2024 Address:[facility] Pcp:Erick Angel Check In:08:22 AM FAMILY LAW ATTORNEY Subjective: * Chief Complaints: * 1 . Last seen 08/16, transfer from [facility]. * Screening: * * Medical History: Objective: * Vitals: Assessment: Plan: * Treatment: * * Electronic signature of Iris Oliveros , [id number] on 05/24/2025 at 12:04 AM FAMILY LAW ATTORNEY Sign off status: Pending * Provider: Roxana Hartmann, MEET, EKG TECH, PMHNP-BC Date: 0 02/15/2024 Generated for Printing/Faxing/eTransmitting on: 1 07/25/2024 12:04 AM FAMILY LAW ATTORNEY
--- OUTSIDE RECORDS SUMMARY | 2024-02-15 13:20 | XMS_ITS ---
Author Organization [facility] Address [address] [place] [address] Phone [phone] Care Team Providers Care Stone Crusher Operator Name Role Phone Erick Angel APRN Primary Care Provider [facility], [facility] Unavailable U navailable Patricia Hartmann Unavailable [phone] REASON FOR VISIT Last seen 08/16, transfer from [facility] Social History Sex Observation Social History Observation Description Sex Observation Male Sexual Orientation Social History Observation Description Sexual Orientation Straight or heterose xual Gender Identity Social History Observation Description Gender Identity Male Encounters Date Time Type Facility Location Provider Diagnosis 02/15/2024 01:20 PM Office Visit [address] [place] [address] Patricia Hartmann Plan Of Treatment No Information Medical (General) History Medical History History ICD Code Substance use disorder Surgical History Surgery Date(Month/Year) Left femur/hermann Hospitalization History Reason Date(Month/Year) pancreatitis- [facility] 2022 Progress Notes * Alonso ROBBINSDOB: [birth year] (29 yo M)Acc No.[id number]:02/15/2024 UNLOCKED PROGRESS NOTE Patient: Roxana Alonso CORTES Provider: Roxana Hartmann DNP, APRN, PMHNP-BRYANT :1995 A ge:28 Y S ex:Male Date:02/15/2024 Address:[facility] Pcp:Erick Angel Check In:08:22 AM COMPLIANCE TECHNICIAN Subjective: * Chief Complaints: * 1 . Last seen 08/16, transfer from [facility]. * Screening: * * Medical History: Objective: * Vitals: Assessment: Plan: * Treatment: * * Electronic signature of Iris Oliveros , [id number] on 05/23/2025 at 06:12 PM COMPLIANCE TECHNICIAN Sign off status: Pending * Provider: Roxana Hartmann, MEET, SCALE TECHNICIAN, PMHNP-BC Date: 0 02/15/2024 Generated for Printing/Faxing/eTransmitting on: 1 07/24/2024 06:12 PM COMPLIANCE TECHNICIAN
--- OUTSIDE RECORDS SUMMARY | 2025-04-12 10:00 | XMS_ITS ---
Author Organization [facility] Address [address] [place] [address] Phone [phone] Care Team Providers Care Account Support Specialist Name Role Phone Erick Angel APRN Primary Care Provider Docin, [facility] Unavailable U Arelis Hi Unavailable [phone] REASON FOR VISIT New Psych Evaluation Medications Medication SIG (Take, Route, Frequency, Duration) Notes Start Date End Date Diagnosis (ICD Code) Status SEROquel XR 300 MG Tablet Extended Release 24 Hour 1 tablet in the evening Orally Once a day; Duration: 30 days Sending a 4 day bridge refill to cover until f/u. Anxiety (ICD_10 - F41.9) Active Naltrexone HCl 50 MG Tablet 1 tablet Orally Once a day; Duration: 30 days Sending a 4 day bridge refill to cover until f/u. Substance use disorder (ICD_10 - F19.90) Active Propranolol HCl 20 MG Tablet 1 tablet Orally three times a day; Duration: 30 days Sending a 4 day bridge refill to cover until f/u. Anxiety (ICD_10 - F41.9) Active Mirtazapine 15 MG Tablet 1 tablet at bedtime Orally Once a day; Duration: 30 days Depression (ICD_10 - F32.9) Active SEROquel XR 300 MG Tablet Extended Release 24 Hour 1 tablet in the evening Orally Once a day Active Effexor XR 75 MG Capsule Extended Release 24 Hour 1 capsule with food Orally Once a day; Duration: 30 days 01/22/2023 Anxiety (ICD_10 - F41.9) Active Daily-Yaniv - Tablet Oral; Duration: 5 Days Active Folic Acid 1 MG Tablet Oral; Duration: 5 Days Active Wellbutrin XL 150 MG Tablet Extended Release 24 Hour 1 tablet in the morning Orally Once a day; Duration: 30 days Sending a 4 day bridge refill to cover until f/u. Depression (ICD_10 - F32.9) Active Social History Sex Observation Social History Observation Description Sex Observation Male Sexual Orientation Social History Observation Description Sexual Orientation Straight or heterose xual Gender Identity Social History Observation Description Gender Identity Male Encounters Date Time Type Facility Location Provider Diagnosis 04/12/2025 10:00 AM Office Visit [address] [place] [address] Arelis Clifford Plan Of Treatment No Information Medical (General) History Medical History History ICD Code Substance use disorder Surgical History Surgery Date(Month/Year) Left femur/hermann Hospitalization History Reason Date(Month/Year) pancreatitis- [facility] 2022 Progress Notes * Alonso ROBBINSDOB: [birth year] (29 yo M)Acc No.[id number]:04/12/2025 UNLOCKED PROGRESS NOTE Patient: Roxana Alonso CORTES Provider: CELESTINA Peterson :1995 A ge:29 Y S ex:Male Date:04/12/2025 Address:[address] [place] [address] [facility] Pcp:Erick Angel Subjective: * Chief Complaints: * 1 . New Psych Evaluation. * Screening: * * Medical History: * Medications: T aking [...] * Treatment: * * Electronic signature of Anjana Clifford on 05/23/2025 at 06:12 PM LEGAL INTERNSHIP Sign off status: Pending * Provider: CELESTINA Peterson Date: 06/12/2024 Generated for Carlos mcallister/Telly/Jignesh on: 07/24/2024 06:12 PM LEGAL INTERNSHIP
--- OUTSIDE RECORDS SUMMARY | 2025-04-12 10:00 | XMS_ITS ---
Author Organization [facility] Address [address] [place] [address] Phone [phone] Care Team Providers Care Physician Assistant Psychiatry Name Role Phone Erick Angel APRN Primary Care Provider [employer], [facility] Unavailable U Arelis Hi Unavailable [phone] REASON FOR VISIT New Psych Evaluation Medications [...] Provider Diagnosis 04/12/2025 10:00 AM Office Visit [address] [place] [address] Arelis Clifford Plan Of Treatment No Information Medical (General) History Medical History History ICD Code Substance use disorder Surgical History Surgery Date(Month/Year) Left femur/hermann Hospitalization History Reason Date(Month/Year) pancreatitis- [facility] 2022 Progress Notes * Alonso ROBBINSDOB: [birth year] (29 yo M)Acc No.[id number]:04/12/2025 UNLOCKED PROGRESS NOTE Patient: Roxana Alonso CORTES Provider: CELESTINA Peterson :1995 A ge:29 Y S ex:Male Date:04/12/2025 Address:[address] [place] [address] [facility] Pcp:Erick Angel Subjective: * Chief Complaints: [...] * Electronic signature of Anjana Clifford on 05/24/2025 at 12:05 AM FREIGHT SOLICITOR Sign off status: Pending * Provider: CELESTINA Peterson Date: 06/12/2024 Generated for Carlos mcallister/Telly/Jignesh on: 07/25/2024 12:05 AM FREIGHT SOLICITOR
--- OUTSIDE RECORDS SUMMARY | 2025-05-23 18:12 | XMS_ITS | Clinical Summary ---
Author Organization [facility] Address [address] [place] [address] Care Team Providers Care Sheet Pile Hammer Operator Name Role Phone Christine George Primary Care Provider [phone] Allergies No known active allergies Medications Cariprazine HCl (VRAYLAR) 1.5 MG CapIndications:B ipolar 1 disorder ([facility]/HCC [facility]/HCC) Take 1.5 mg by mouth daily. 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
--- OUTSIDE RECORDS SUMMARY | 2025-05-23 18:12 | XMS_ITS | Patient Health Record ---
Author Organization [facility] Address [address] [place] [address] Phone [phone] Care Team Providers Care Bumboater Name Role Phone Erick Angel APRN Primary Care Provider Acceptd, [facility] Unavailable U Arelis Hi Unavailable [phone] Allergies No Known Allergies Reason For Referral No Information Medications Medication SIG (Take, Route, Frequency, Duration) Notes Start Date End Date Diagnosis (ICD Code) Status Effexor XR 75 MG Capsule Extended Release 24 Hour 1 capsule with food Orally Once a day; Duration: 30 days 01/22/2023 Anxiety (ICD_10 - F41.9) Active Daily-Yaniv - Tablet Oral; Duration: 5 Days Active Folic Acid 1 MG Tablet Oral; Duration: 5 Days Active SEROquel XR 300 MG Tablet Extended [...] Substance use disorder (ICD_10 - F19.90) Active Wellbutrin XL 150 MG Tablet Extended Release 24 Hour 1 tablet in the morning Orally Once a day; Duration: 30 days Sending a 4 day bridge refill to cover until f/u. Depression (ICD_10 - F32.9) Active Propranolol HCl 20 MG Tablet 1 [...] the evening Orally Once a day Active Social History Tobacco Use: Social History Observation Description Date Details (start date - stop date) Unknown Sex Observation Social History Observation Description Sex Observation Male Sexual Orientation Social History Observation Description Sexual Orientation Straight or heterose xual Gender Identity Social History Observation Description Gender Identity Male Social History Primary Social History Social Info Question Answer Notes Living Arrangement Living Arrangement: Independent [place] ing Is this a supportive environment? Yes Tobacco Use - do not use Tobacco Use: Vap e Employment Status Employment Status: Unemployed Illicit Substance Usage Illicit Substance Usage: No Last use 09/29 Alcohol Use Alcohol Use Frequency: Never Tobacco Use: Social Info Question Answer Notes Dont use, Tobacco Use/Smoking Are you a Uses tobacco in other forms Additional Findings: Tobacco User e-Cigarette Section Notes: Reviewed PDMP Problems Problem Type SNOMED Code ICD Code Dates Problem Status W/U Status Risk Notes Problem Depression (902766323) Depression (F32.9) Added On: 023 Active confirmed Problem Anxiety (74621402) Anxiety (F41.9) Added On: 023 Active confirmed Encounters Date Time Type Facility Location Provider Diagnosis 04/12/2025 08:51 AM Telephone Encounter [address] [place] [address] Arelis Clifford Plan Of Treatment No Information Insurance Providers Payer Name Payer Address Payer Phone Subscriber Number Group Number Insured Name Patient Relationship to Insured Coverage Start Date Coverage End Date [employer] [address] [place] [address] [id number] Alonso Bender Self - patient is the insured 3 [employer] [address] [place] [address] [id number] Alonso Bender Self - patient is the insured 3 Medical (General) History Medical History History ICD Code Substance use disorder Surgical History Surgery Date(Month/Year) Left femur/hermann Hospitalization History Reason Date(Month/Year) pancreatitis- [facility] 2022
[2025-05-23 18:15] VITALS: BP 143/87; PULSE 82; RESP 16; TEMP 36.7; O2SAT 97
[2025-05-23 22:12] VITALS: BP 141/87; PULSE 79; RESP 17; TEMP 36.7; O2SAT 99
[2025-05-23 22:12] LABS: Hematocrit 45.2 % (42.0-52.0); Hemoglobin 15.8 g/dL (14.0-18.0); Immature Granulocyte Percent A 0.8 % (0-0.5); Lymphocytes Absolute Auto 3.58 K/mm3 (0.9-3.2); Mean Corpuscular HGB Conc 35.0 g/dl (32-36); Mean Corpuscular Hemoglobin 31.2 pg (26-34); Mean Corpuscular Volume 89.2 fl (80-100); Nucleated Red Blood Cells Absolute Auto 0.000 K/mm3 (0.0-0.012); Nucleated Red Blood Cells Perc 0.0 % (0.0-0.2); Platelet Count Result 331 k/mm3 (150-375); Red Blood Count 5.07 M/mm3 (4.6-6.20); White Blood Count 13.6 K/mm3 (4.5-10.0)
[2025-05-23 22:22] LABS: Alanine Aminotransferase 79 U/L (6-50); Albumin Level 4.8 g/dL (3.5-5.1); Alkaline Phosphatase 95 U/L (38-126); Anion Gap 9 mmol/L (4-12); Aspartate Amino Transferase 102 U/L (17-59); Bilirubin,Total 1.3 mg/dL (0.2-1.3); Blood Urea Nitrogen 7 mg/dL (9-20); Calcium 9.2 mg/dL (8.4-10.2); Carbon Dioxide 27 mmol/L (22-30); Chloride 100 mmol/L (98-107); Estimated CRCL calculation 130 ml/min; Estimated Glomerular Filt Rate > 60; Glucose 135 mg/dL (65-110); Lipase 380 U/L (23-300); Potassium 3.7 mmol/L (3.4-5.0); Sodium 136 mmol/L (137-145); Total Protein 8.4 g/dL (6.3-8.2)
--- NOTE | 2025-05-23 23:59 | PC.NURSE ---
1st call no answer for bed placement
--- OUTSIDE RECORDS SUMMARY | 2025-05-24 00:04 | XMS_ITS | Data Portability ---
[facility] [address] [place] [address] Assessment No assessment recorded. Plan of Treatment Reminders Order Date Submit Date Provider Last Modified By Organization Details Last Modified Time Details Appointments None recorded. Lab CT + NG + TV, DNA, urine/swab 2019 020 [facility], [address] [place] [address], [address], [place], [address], 0 20:07:18 Referral None recorded. Procedures None recorded. Surgeries None recorded. Imaging None recorded. Medication Orders azithromyc in 500 mg tablet 2019 020 [id number], [address], [place], [id number], 0 10:19:40 Patient TargetsNo targets recorded. Patient Instructions Encounter Date Encounter Id Patient Instructions Last Modified By Organization Details Last Modified Time 09/16/2019 [id number] cocaine use: car e instructions Not available [...] Negati ve negati ve Not Available [facility] ([facility]) [address] [facility], [place], [address], 09/19/2019 20:07:18 09/16/19 20 09/19/2019 CT + NG + TV, DNA, urine /swab gonococcus by CONRAD Negati ve negati ve Not Available [facility] ([facility]) [address] [facility], [place], [address], 09/19/2019 20:07:18 09/16/19 20 09/19/2019 CT + NG + TV, DNA, urine /swab trich vag by CONRAD Negati ve negati ve Not Available [facility] ([facility]) [address] [facility], [place], [address], 09/19/2019 20:07:18 Result Notes None recorded. 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 No [id number] Information not available 04/03/2020 What Is Your Level Of Caffeine Consumption? Heavy [id number] Information not available 04/03/2020 How Much Tobacco Do You Chew? None [id number] Information not available 04/03/2020 Have You Been To An Area Known To Be High Risk For COVID-19? No [id number] Information not available 04/03/2020 What Type Of Diet Are You Following? REGULAR [id number] Information not available 04/03/2020 Which Illicit Or Recreational Drugs Have You Used? Cocaine [id number] Information not available 04/03/2020 Education 10 Information no t available 09/16/2019 Are There Any Guns Present In Your Home? No [id number] Information not available 04/03/2020 Hard Of Hearing Or Deaf In One Or Both Ears? No Information not available 09/16/2019 Legally Blind In One Or Both Eyes? No Information no t available 09/16/2019 Marital Status Single Informatio n not available 09/16/2019 What Was The Date Of Your Most Recent Tobacco Screening? 09/16/2019 [id number] Information not available 04/03/2020 Performs Monthly Self-breast Exam? No Information no t available 09/16/2019 Seat Belts Used Routinely Yes Information not available 09/16/2019 Smoke Alarm In Home Yes Information not available 09/16/2019 At What Age Did You Start Smoking Tobacco? 22 [id number] Information not available 04/03/2020 General Stress Level Medium Information not available 09/16/2019 Do You Use Sunscreen Routinely? No [id number] Information not available 04/03/2020 On What Date Was Tobacco Cessation Counseling Provided? 09/16/2019 [id number] Information not available 04/03/2020 How Many Years Have You Smoked Tobacco? 1 [id number] Information not available 04/03/2020 Sex: Unknown Functional Status Question Answer Note LastModified by [employer] ion Details LastModified Time What is your level of alcohol consumption? Occasional [id number] Information not available 04/03/2020 What is your occupation? Unemployed Information not available 09/16/2019 Do you or have you ever used e-cigarettes or vape? Current user of electronic cigarettes [id number] Information not available 04/03/2020 What is your exercise level? Occasional [id number] Information not available 04/03/2020 Mental Status None recorded. Family History Nothing Reported. 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 Denies headaches, vision changes, chest pain, SOB, palpitatio ns. He states he has a PCP in [place]. Advised to follow up with PCP. Discussed DASH diet, daily exercises, and no drug use. BP goal <120/80. 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 He denies regular use. Declines rehab referral. Counseled pt on risks of use including mental harm, high blood pressure, and heart attack. Advised complete cessation. ER precaution s discussed. Exposure t o Chlamydia trachomatis 795958743 Z20.2 Partner tested positive for chlamydia. Will [...] [place] Member ID Guarantor Name 10/16/2024 1 [facility] (MEDICAID HMO) [id number] Alonso Bender [id number] Alonso Bender Notes Date Note Type Note [...] vomiting, fevers. SONG WICK Attn: Accounting,[address] [place], [address], [facility] 09/16/2019 10:34:20
--- OUTSIDE RECORDS SUMMARY | 2025-05-24 00:05 | XMS_ITS | Patient Health Record ---
Author Organization [facility] Address [address] [place] [address] Phone [phone] Care Team Providers Care Orthodontic Technician Assistant Name Role Phone Erick Angel APRN Primary Care Provider [employer], [facility] Unavailable U Arelis Hi Unavailable [phone] Allergies No Known Allergies Reason For Referral [...] Status W/U Status Risk Notes Problem Depression (298877446) Depression (F32.9) Added On: 023 Active confirmed Problem Anxiety (63698998) Anxiety (F41.9) Added On: 023 Active confirmed Encounters Date Time Type Facility Location Provider Diagnosis 04/12/2025 08:51 AM Telephone Encounter [address] [place] [address] Arelis Clifford Plan Of Treatment No Information Insurance Providers Payer Name Payer Address Payer Phone Subscriber Number Group Number Insured Name Patient Relationship to Insured Coverage Start Date Coverage End Date [employer] [address] [place] [address] [id number] Alonso Bender Self - patient is the insured 3 [employer] [address] [place] [address] [id number] Alonso Bender Self - patient is the insured 3 Medical (General) History Medical History History ICD Code Substance use disorder Surgical History Surgery Date(Month/Year) Left femur/hermann Hospitalization History Reason Date(Month/Year) pancreatitis- [facility] 2022
--- OUTSIDE RECORDS SUMMARY | 2025-05-24 00:05 | XMS_ITS | Clinical Summary ---
Author Organization [facility] Address [address] [place] [address] Care Team Providers Care Research Physicist Name Role Phone Christine George Primary Care Provider [phone] Allergies No known active allergies Medications Cariprazine HCl (VRAYLAR) 1.5 MG CapIndications:B ipolar 1 disorder ([facility]/HCC) Take 1.5 mg by mouth daily. 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
== END 2025-05-24 00:18 | disposition left against medical advice (07) ==
LOC: ANHED 05-24 00:03
PROVIDERS: Emergency Provider Emergency Medicine
DX: R10.10 Upper abdominal pain, unspecified (principal)
CPT/HCPCS: 36415; 80053; 83690; 85025; 99199